=== PATIENT | female | born 1950 | race Caucasian/White ===

== ENCOUNTER 2016-12-12 22:03 | Emergency (ER) | payer OTHER, MEDICAID ==
[~2016-12-12] VITALS: Ht 154.9 cm; Wt 70.8 kg
[~2016-12-12 22:03] MED LIST: ALEN70TA5 PO; AMLO10TA2 PO; ATOR40TA59 PO; BUPR300T4 PO; CHOL20002 PO; CLON1TAB3 PO; DOCU100C PO; HYDR-2666 PO; HYDR12.53 PO; IBUP-1007 PO; LOSA100T6 PO; LURA120T PO; MELA1TAB11 PO; POTA20TA12 PO; RIZA10TA PO
[2016-12-12] MEDS ORDERED: HYDROCODONE/APAP 5/325MG TABLET. PO ONE (23:00)
--- NOTE | 2016-12-12 23:11 | PHYS DOC ---
Past Medical History Past Medical History: Bipolar, High Cholesterol, Hypertension, Schizophrenia Past Surgical History: Hysterectomy, Tonsillectomy Additional Past Surgical Histo: bladder tuck surgery, breast reduction, back sx , Alcohol Use: None Drug Use: None Adult General Chief Complaint Chief Complaint: MECHANICAL FALL HPI HPI Patient is a 66 year old female who presents status post fall. Patient reports she was in bed when she rolled over to reach for her walker, she rolled ran out of bed. She says she hit her head on the nightstand on the way down of loss consciousness. She presents now with complaint of pain in her lower back (of note recently underwent kyphoplasty). She also reports pain in her right hip. She did not take anything for pain prior to coming to ED. No other acute complaints. Review of Systems Review of Systems Constitutional: Denies fever or chills Eyes: Denies change in visual acuity or eye pain HENT: Denies nasal congestion or sore throat Respiratory: Denies cough or shortness of breath Cardiovascular: Denies chest pain GI: Denies abdominal pain, nausea, vomiting, bloody stools or diarrhea : Denies dysuria or hematuria Musculoskeletal: Low back pain, R hip pain Integument: Denies rash or skin lesions Neurologic: Denies headache, focal weakness or sensory changes Current Medications Current Medications Current Medications Medications (Trade) Dose Ordered Sig/Saji Start Time Stop Time Status Last Admin Dose Admin Acetaminophen/ Hydrocodone Bitart (Lortab 5/325) 1 tab 1X ONCE 12/12/16 23:00 12/12/16 23:01 DC 12/12/16 22:48 1 TAB Ketorolac Tromethamine (Toradol) 30 mg 1X ONCE 12/13/16 01:00 12/13/16 01:01 12/13/16 00:46 30 MG Allergies Allergies Allergies Coded Allergies Type Severity Reaction Last Updated Verified No Known Drug Allergies 09/19/15 No Physical Exam Physical Exam Constitutional: Well developed, well nourished, non-toxic appearance HENT: Normocephalic, atraumatic, bilateral external ears normal Eyes: PERRL, EOMI, conjunctiva normal, no discharge Neck: Normal range of motion, no stridor. No midline TTP, no stepoff Cardiovascular: Heart rate normal, regular rhythm, no murmur Lungs & Thorax: Bilateral breath sounds clear to auscultation Abdomen: Bowel sounds normal, soft, non-distended, no TTP Skin: Warm, dry, no erythema, no rash Back: Midline tenderness to palpation over lumbar spine; no stepoff noted; midline scar noted Extremities: No obvious deformity, no edema. Minimal lateral TTP over R hip, full motor function and sensation to light touch intact; 2+ DP pulse Neurologic: Alert and oriented X 3, GCS 15, CN II-XII grossly intact, strength intact and symmetrical throughout, sensation to light touch intact throughout, no dystaxia noted Current Patient Data Vital Signs Vital Signs Date Time Temp Pulse Resp B/P Pulse Ox O2 Delivery O2 Flow Rate FiO2 12/12/16 22:48 16 Room Air 12/12/16 22:25 98.4 71 125/67 92 98.4 EKG EKG [] Radiology/Procedures Radiology/Procedures CT head: IMPRESSION No acute intracranial abnormality is seen. CT C-spine: IMPRESSION No fracture or subluxation of the cervical vertebrae is seen. CT L-spine: IMPRESSION No acute fracture or subluxation lumbar vertebrae is seen. X-ray R hip and pelvis (my read): No acute abnormality Course & Med Decision Making Course & Med Decision Making Pertinent Labs and Imaging studies reviewed. (See chart for details) Patient is 66-year-old female who presents with low back pain after mechanical fall out of bed. Will obtain CT head and C-spine simply given age and reported loss of consciousness. Will check CT L-spine and x-ray of right hip as well. Oral pain meds ordered for patient. Imaging results as above. Discussed results with patient. Will discharge home with prescription for naproxen, instructions for follow-up, return precautions. Dragon Disclaimer Dragon Disclaimer This electronic medical record was generated, in whole or in part, using a voice recognition dictation system. Departure Departure Impression: Primary Impression: Fall Additional Impression: Back pain Disposition: 01 HOME, SELF-CARE Condition: STABLE Referrals: FEDERICA SAENZ MD (PCP) Patient Instructions: Back Pain, Adult, Fall Prevention and Home Safety Additional Instructions: Thank you for allowing us to provide care today in the Emergency Department. Take the provided medication as directed. Schedule a follow up appointment with your primary care doctor. Return promptly to the Emergency Department if you develop any new or concerning symptoms. Scripts Naproxen 375 Mg [id number] Mg PO BID PRN PAIN #20 Prov:JOSE NICKERSON MD 12/13/16 Problem Qualifiers JOSE NICKERSON MD Dec 12, 2016 23:11
--- NOTE | 2016-12-12 23:29 | RAD ---
PROCEDURE CT scan of the head without contrast 12/12/2016 HISTORY Patient fell out of bed striking head. TECHNIQUE Unenhanced contiguous, 5 millimeter axial sections were obtained through the head. One or more of the following individualized dose reduction techniques were utilized for this study: 1. Automated exposure control. 2. Adjustment of the mA and/or kV according to patient size. 3. Use of iterative reconstruction technique. FINDINGS There is generalized parenchymal atrophy. Areas of decreased attenuation are seen within the white matter both cerebral hemispheres consistent with areas of small vessel ischemic disease. No acute parenchymal abnormality is seen. No extra-axial fluid collection is noted. No skull fracture is seen. IMPRESSION No acute intracranial abnormality is seen. PROCEDURE CT scan of the cervical spine without contrast 12/12/2016 HISTORY Neck pain post fall. TECHNIQUE Unenhanced contiguous, 0.625 millimeter axial sections were obtained through the cervical spine. One or more of the following individualized dose reduction techniques were utilized for this study: 1. Automated exposure control. 2. Adjustment of the mA and/or kV according to patient size. 3. Use of iterative reconstruction technique. FINDINGS Sagittal and coronal reconstructed images demonstrate minimal lateral curvature of the cervical spine convex to the right. There is straightening of the normal cervical lordosis. Degenerative changes consisting of disc space narrowing, vertebral endplate sclerosis and mild anterior and posterior vertebral body osteophyte formation are seen involving the C5-6 and C6-7 disc spaces. No fracture or subluxation cervical vertebrae is seen. IMPRESSION No fracture or subluxation of the cervical vertebrae is seen. Electronically signed by: Kaushik Wright MD (Dec 12, 2016 23:28:15)
--- NOTE | 2016-12-12 23:31 | RAD ---
PROCEDURE CT scan of the lumbar spine without contrast 12/12/2016 HISTORY Low back pain after falling out of bed. TECHNIQUE Unenhanced contiguous, 0.625 millimeter axial sections were obtained through the lumbar spine. 3 millimeter reconstructed sagittal, axial coronal images were obtained. One or more of the following individualized dose reduction techniques were utilized for this study: 1. Automated exposure control. 2. Adjustment of the mA and/or kV according to patient size. 3. Use of iterative reconstruction technique. FINDINGS Sagittal and coronal reconstructed images demonstrate mild S-shaped curvature of the thoracolumbar spine. The patient is status post kyphoplasty type procedure involving the L2 vertebral body. No acute fracture of the lumbar vertebrae is seen. Degenerative changes are seen involving the facet joints of the mid and lower lumbar spine. IMPRESSION No acute fracture or subluxation lumbar vertebrae is seen. Electronically signed by: Kaushik Wright MD (Dec 12, 2016 23:30:46)
[2016-12-13] MEDS ORDERED: NAPR375T3 PO (00:35)
[2016-12-13 00:41] VITALS: BP 133/75
[2016-12-13] MEDS ORDERED: KETOROLAC TROMETHAMINE 30 MG/ML SYRINGE. IM ONE (01:00)
--- NOTE | 2016-12-13 08:13 | RAD ---
Examination: 2 views of the right hip History: History of fall, pain Comparison: None available Findings: The femoral head is within the acetabula. Mild degenerative changes identified in the bilateral hip joint. There is no acute fracture or dislocation identified. Impression: No acute osseous findings.
== END 2016-12-13 01:38 | disposition home or self-care (01) ==
LOC: ER 22:03
DX: M54.5 Low back pain (principal); M25.551 Pain in right hip; F31.9 Bipolar disorder, unspecified; E78.00 Pure hypercholesterolemia, unspecified; I10 Essential (primary) hypertension; F20.9 Schizophrenia, unspecified; Z90.710 Acquired absence of both cervix and uterus; W19.XXXA Unspecified fall, initial encounter; Y93.89 Activity, other specified; Y92.89 Other specified places as the place of occurrence of the external cause; Y99.8 Other external cause status
CPT/HCPCS: 70450; 72125; 72131; 73502; 96372; 99284; J1885

== ENCOUNTER 2017-01-15 14:47 | Inpatient (IN) | payer OTHER, MEDICAID ==
[~2017-01-15] VITALS: Ht 154.9 cm; Wt 63.5 kg
[2017-01-15] VITALS (7 sets, daily range): BP systolic 120–140; BP diastolic 71–75
[~2017-01-15 14:47] MED LIST changes: +NAPR375T3 PO
--- NOTE | 2017-01-15 15:22 | EKG ---
[facility] [address] [place] [address] Test Date: 2017-01-15 Test Time: 15:21:13 Pat Name: TAMMI BERRIOS Department: Room: Gender: [place] [employer]: : 1950 Requested By: JAMI MANDEL Order Number: [id number] Reading MD: Measurements Intervals [place] Rate: 73 P: 68 DE: 192 QRS: 2 QRSD: 92 T: 16 QT: 438 QTc: 487 Interpretive Statements SINUS RHYTHM CONSIDER RIGHT VENTRICULAR HYPERTROPHY PROLONGED QT POSSIBLY ABNORMAL ECG RI6.01 No previous ECG available for comparison
--- NOTE | 2017-01-15 15:26 | RAD ---
CT of the head without contrast, 01/15/2017: History: Right facial droop Comparison is made to a study from 12/12/2016. The ventricles are within normal limits in size. There is no shift of the midline structures. There is no evidence of acute intracranial hemorrhage or mass effect. There are mild deep white matter lucencies, more so on the left, compatible with chronic ischemic change. IMPRESSION: No acute intracranial abnormality is detected with no significant change since 12/12/2016. Note: The findings were called to personnel in the [facility] ER at 3:22 PM on 01/15/2017.
--- NOTE | 2017-01-15 16:03 | RAD ---
Portable chest, 01/15/2017: History: Headache and weakness, CVA The patient is rotated to the right. The heart appears to be within normal limits in size. The pulmonary vascularity is normal. The depth of inspiration is poor with mild streaky right basilar and left parahilar opacities compatible with atelectasis. The lungs are otherwise clear. There is no evidence of pleural fluid. IMPRESSION: Suboptimal inspiration with mild left perihilar and right basilar discoid atelectasis.
--- NOTE | 2017-01-15 16:08 | PDOC2 ---
NEUROLOGY CONSULT Date of Admission Date of Admission DATE: 01/15/17 TIME: 16:00 Reason for Consult Reason for Consult: Weakness Referring Physician Referring Physician: Dr. Valencia PCP: Niharika Cazares Source Source: Caregiver, Chart review, Patient History of Present Illness History of Present Illness The patient is a 66-year-old right-handed female noted to have a left facial droop today. It was hard to pin her down but she thinks it started this morning. Her daughter noticed it when she came to visit at about 1 PM. The patient has generalized weakness. She could not use her call button. She has been debilitated ever since back injuries several years ago and recently was here for a lumbar compression fracture. She has no history of stroke, seizure, or head injury. Past Medical History Cardiovascular: HTN, Hyperlipidemia CENTRAL NERVOUS SYSTEM: Migraine Psych: Bipolar, Schizophrenia Musculoskeletal: low back pain (lumbar compressio fracture) ENT: Other (Fuchs dystrophy) Endocrine: Osteoporosis Past Surgical History Past Surgical History: Tonsillectomy, Hysterectomy, Other (bladder tuck, breast reduction) Family History Family History: CVA Social History Social History Single, lives alone, disabled, no tobacco or alcohol use Current Medications Current Medications Current Medications Aspirin (Ecotrin) 81 mg DAILYWBKFT PO ; Start 01/16/17 at 08:00 Prednisone (Prednisone) 40 mg DAILY PO ; Start 01/15/17 at 16:15 Active Scripts Active Naproxen 375 Mg Tablet 375 Mg PO BID PRN Reported Stool Softener (Docusate Sodium) 100 Mg Capsule 100 Mg PO DAILY Melatonin 5 Mg Tablet (Melatonin/Pyridoxine Hcl (B6)) 1 Each Tablet 1 Each PO HS Latuda (Lurasidone Hcl) 120 Mg Tablet 120 Mg PO DAILYWSUP Bupropion Xl (Bupropion Hcl) 300 Mg Tab.er.24h 300 Mg PO DAILY Alendronate Sodium 70 Mg Tablet 70 Mg PO WEEKLY Ibuprofen 600 Mg Tablet 600 Mg PO Q6H PRN Hydrocodone-Apap 5-325 (Hydrocodone Bit/Acetaminophen) 1 Each Tablet 1 Tab PO PRN Q6HRS PRN Vitamin D-3 (Cholecalciferol (Vitamin D3)) 2,000 Unit Tablet 5,000 Unit PO WEEKLY Losartan Potassium 100 Mg Tablet 100 Mg PO DAILY Amlodipine Besylate 10 Mg Tablet 10 Mg PO DAILY Atorvastatin Calcium 40 Mg Tablet 40 Mg PO DAILY Hydrochlorothiazide Capsule (Hydrochlorothiazide) 12.5 Mg Capsule 25 Mg PO DAILY Potassium Chloride 20 Meq Tab.er.prt 20 Meq PO DAILY Maxalt (Rizatriptan Benzoate) 10 Mg Tablet 10 Mg PO PRN PRN Clonazepam 1 Mg Tablet 1 Mg PO Allergies Allergies: Coded Allergies: No Known Drug Allergies (Unverified , 09/19/15) ROS Review of System Patient denies fevers, chills, weight loss, dyspnea, angina, abdominal pain, change in bowels, or dysuria. 14 point review of systems is negative. Physical Exam Physical Examination PHYSICAL EXAMINATION: Vital signs: see above. General appearance is normal and in no acute distress. HEENT: Normocephalic and nontraumatic. Eyes, nose, ears, and throat are unremarkable. Tympanic membranes clear Neck is supple. No lymphadenopathy. No bruits are heard over the carotid artery. No crepitus. NEUROLOGICAL EXAMINATION: Mental Status Examination: Alert. Oriented to time, place, and person. Answers questions and follows commends. Pupils are equal round and reactive to light and accommodation. Funduscopic exam: No papilledema. Extraocular movements are intact. Visual field exam shows no defect on the direct confrontation. There is a left lower motor neuron facial weakness. Uvula in the midline and the soft palate elevated symmetrically. No deviation of the tongue to any direction. Gross hearing is normal. Shoulder shrug normal. Muscle tone is normal. Muscle strength is 3-4/5. Deep tendon reflexes are 2+ all around. Plantar reflex is with flexion response bilaterally. [id number] test performance is accurate. Alternative movements are accurate. Gait not tested; she usually gets around with a walker. Sensory exam shows no deficits. No cerebellar signs are elicited. She has masked facies, bradykinesia, but no cogwheel rigidity or tremor Vitals VITALS Vital Signs Date Time Temp Pulse Resp B/P Pulse Ox O2 Delivery O2 Flow Rate FiO2 01/15/17 15:11 98.1 71 18 118/64 94 Room Air 98.1 Labs Labs Laboratory Tests Test 01/15/17 15:15 Glucose (Fingerstick) 94mg/dL (70-99) Laboratory Tests Test 01/15/17 15:15 Glucose (Fingerstick) 94mg/dL (70-99) Images Images CT head negative Assessment/Plan Assessment/Plan Impression: Left Betancourt's palsy Diffuse weakness, nonfocal, with overall picture of an extrapyramidal syndrome from her antipsychotics and antidepressants. I find no evidence of radiculopathy , myelopathy, neuropathy, or myopathy. Chronic back pain and debility including requirement to use a walker to ambulate. Recommendations: MRI of the brain Additional stroke workup if the MRI shows that there was a stroke Low dose prednisone for Betancourt's palsy Hold on antiviral agents for Betancourt's palsy Rehabilitation modalities Hold psychiatric medications Daily aspirin I discussed my findings with the patient, her daughter, as well as Dr. Valencia. Thank you for letting me help with the patient's care. CORBY PETERSON MD Jan 15, 2017 16:08
[2017-01-15] MEDS ORDERED: ONDANSETRON PF 4 MG/2 ML VIAL. IV PRN (16:15)
--- NOTE | 2017-01-15 16:16 | PHYS DOC ---
Past Medical History Past Medical History: Bipolar, High Cholesterol, Hypertension, Schizophrenia Past Surgical History: Hysterectomy, Tonsillectomy Additional Past Surgical Histo: bladder tuck surgery, breast reduction, back sx , Alcohol Use: None Drug Use: None Adult General Chief Complaint Chief Complaint: NEURO SYMPTOMS/DEFICITS HPI HPI 66-year-old female presenting to the emergency department with left-sided facial droop and slurred speech. (Nursing note states this started 1 hour ago. I clarified with the patient and the patient's box car bracer in front of the nurse. Everybody agrees that the patient's symptoms started between 6 AM and 7 AM this morning. She denies focal weakness but does complain of generalized weakness in both upper and lower extremities. She denies any vision changes. Location brain. Duration constant. No alleviating factors present. Review of systems is negative for chest pain shortness of breath nausea vomiting abdominal pain. She denies fevers or chills. All other review of systems is negative unless otherwise noted in history of present illness. Review of Systems Review of Systems see above Current Medications Current Medications Allergies Allergies Allergies Coded Allergies Type Severity Reaction Last Updated Verified No Known Drug Allergies 09/19/15 No Physical Exam Physical Exam Constitutional: Well developed, well nourished, no acute distress, non-toxic appearance. HENT: Normocephalic, atraumatic, bilateral external ears normal, oropharynx moist, no oral exudates, nose normal. Eyes: PERRLA, EOMI, conjunctiva normal, no discharge. [] Neck: Normal range of motion, no tenderness, supple, no stridor. Cardiovascular:Heart rate regular rhythm, no murmur [] Lungs & Thorax: Bilateral breath sounds clear to auscultation Abdomen: Bowel sounds normal, soft, no tenderness, no masses, no pulsatile masses. [] Skin: Warm, dry, no erythema, no rash. Back: No tenderness, no CVA tenderness. [] Extremities: No tenderness, no cyanosis, no clubbing, ROM intact, no edema. [] Neurologic: Mental status: Awake oriented and alert x3 Cranial nerves: Extraocular movements intact, patient has left-sided facial droop. She is unable to raise her left eyebrow. uvula elevation symmetric, shoulder shrug intact, tongue protrusion normal DTRs: 2+ Sensation: equal and normal in all extremities Strength: 4 out of 5 strength in all extremities. Asymmetric. Psychologic: Affect normal, judgement normal, mood normal. Current Patient Data Vital Signs Vital Signs Date Time Temp Pulse Resp B/P Pulse Ox O2 Delivery O2 Flow Rate FiO2 01/15/17 15:29 72 125/65 01/15/17 15:11 98.1 18 94 Room Air 98.1 Lab Values Laboratory Tests Test 01/15/17 15:15 Glucose (Fingerstick) 94mg/dL (70-99) EKG EKG [] Radiology/Procedures Radiology/Procedures [] Course & Med Decision Making Course & Med Decision Making Pertinent Labs and Imaging studies reviewed. (See chart for details) [] 66-year-old female presenting to the emergency department with left-sided facial droop that started between 6 AM and 7 AM this morning. (not one hour ago as explained by the pt). Vital signs afebrile. Otherwise unremarkable. Our neurologist Dr. Gunter was able to see the patient in the emergency department here around 3:45pm. The decision at that time was that the patient would not benefit from TPA. Aspirin ordered. head CT unremarkable. Blood work obtained. low potassium. pt was given po K in the ED. The patient was then admitted to our hospital for further evaluation workup and care. Neurology consultation placed. Dragon Disclaimer Dragon Disclaimer This electronic medical record was generated, in whole or in part, using a voice recognition dictation system. Departure Departure Impression: Primary Impression: Facial droop Disposition: ADMITTED INPATIENT Admitting Physician: Janel Valencia Condition: STABLE Referrals: FEDERICA SAENZ MD (PCP) JAMI MANDEL MD Jan 15, 2017 16:16
--- NOTE | 2017-01-15 16:21 | PDOC1 ---
History and Physical Date of Admission Date of Admission DATE: 01/15/17 TIME: 16:15 Identification/Chief Complaint Chief Complaint left facial droop Source Source: Caregiver, Chart review, Patient History of Present Illness History of Present Illness 66 y.o female, known to me form past admit in 10/2016, where she was here for 5 days for the ff: 1. L2 traumatic compressive fx, closed s/p L kyphoplasty 2. recent lower back fx wo details 3. recent pns 4. HTN 5. HLD 6. BIPolar/schizophrenia 7. hypokalemia She comes here bec she woke up this AM with left sided facial droop, some difficulty swallowing, Lives alone at home, ambulates with a walker. Her Left NLF is shallow, she has weak tongue protrusion, I dont appreciate much wrinkling of the forehead though, Narciso neuro, working dx is Betancourt's for now but need to r.o stroke, Will get MRI, ASA, starrt pred, check ESR. VS at ER is ok Pt hx is limited from the pt herself Past Medical History Cardiovascular: HTN, Hyperlipidemia CENTRAL NERVOUS SYSTEM: Migraine Psych: Bipolar, Schizophrenia Musculoskeletal: low back pain (lumbar compressio fracture) ENT: Other (Fuchs dystrophy) Endocrine: Osteoporosis Past Surgical History Past Surgical History: Tonsillectomy, Hysterectomy, Other (bladder tuck, breast reduction) Family History Family History: No Significant Social History Smoke: No ALCOHOL: none Drugs: None Current Problem List Problem List Problems Medical Problems: (1) Weakness Status: Acute Problems: Current Medications Current Medications Current Medications Aspirin (Ecotrin) 81 mg DAILYWBKFT PO ; Start 01/16/17 at 08:00 Prednisone (Prednisone) 40 mg DAILY PO ; Start 01/15/17 at 16:15 Ondansetron HCl (Zofran) 4 mg PRN Q8HRS PRN IV NAUSEA/VOMITING; Start 01/15/17 at 16:15; Stop 01/15/17 at 16:15; Status DC Morphine Sulfate 2 mg PRN Q2HR PRN IV PAIN; Start 01/15/17 at 16:15; Stop at 16:14 Ondansetron HCl (Zofran) 4 mg PRN Q6HRS PRN IV NAUSEA/VOMITING; Start 01/15/17 at 16:12 Acetaminophen (Tylenol) 650 mg PRN Q4HRS PRN PO headache; Start 01/15/17 at 16: 15 Amlodipine Besylate (Norvasc) 10 mg DAILY PO ; Start 01/16/17 at 09:00; Status UNV Atorvastatin Calcium (Lipitor) 40 mg DAILY PO ; Start 01/16/17 at 09:00; Status UNV Clonazepam (Klonopin) 1 mg QHS PO ; Start 01/15/17 at 21:00; Stop 01/15/17 at 21: 00; Status DC Docusate Sodium (Colace) 100 mg DAILY PO ; Start 01/16/17 at 09:00; Status UNV Hydrochlorothiazide (Microzide) 25 mg DAILY PO ; Start 01/16/17 at 09:00; Status UNV Acetaminophen/ Hydrocodone Bitart (Lortab 5/325) 1 tab PRN Q6HRS PRN PO PAIN; Start 01/15/17 at 16:15; Status UNV Potassium Chloride (Klor-Con) 20 meq DAILY PO ; Start 01/16/17 at 09:00; Status UNV Non-Formulary Medication 70 mg WEEKLY PO ; Start 01/22/17 at 09:00; Status UNV Non-Formulary Medication 300 mg DAILY PO ; Start 01/16/17 at 09:00; Status UNV Non-Formulary Medication 5,000 unit WEEKLY PO ; Start 01/22/17 at 09:00; Status UNV Non-Formulary Medication 600 mg Q6H PRN PO PAIN; Start 01/15/17 at 16:15; Status UNV Non-Formulary Medication 100 mg DAILY PO ; Start 01/16/17 at 09:00; Status UNV Non-Formulary Medication 120 mg DAILYWSUP PO ; Start 01/15/17 at 17:00; Status UNV Non-Formulary Medication 1 each HS PO ; Start 01/15/17 at 21:00; Status UNV Non-Formulary Medication 375 mg BID PRN PO PAIN; Start 01/15/17 at 16:15; Status UNV Non-Formulary Medication 10 mg PRN PRN PO MIGRAINE HEADACHE; Start 01/15/17 at 16 :15; Status UNV Active Scripts Active Naproxen 375 Mg Tablet 375 Mg PO BID PRN Reported Stool Softener (Docusate Sodium) 100 Mg Capsule 100 Mg PO DAILY Melatonin 5 Mg Tablet (Melatonin/Pyridoxine Hcl (B6)) 1 Each Tablet 1 Each PO HS Latuda (Lurasidone Hcl) 120 Mg Tablet 120 Mg PO DAILYWSUP Bupropion Xl (Bupropion Hcl) 300 Mg Tab.er.24h 300 Mg PO DAILY Alendronate Sodium 70 Mg Tablet 70 Mg PO WEEKLY Ibuprofen 600 Mg Tablet 600 Mg PO Q6H PRN Hydrocodone-Apap 5-325 (Hydrocodone Bit/Acetaminophen) 1 Each Tablet 1 Tab PO PRN Q6HRS PRN Vitamin D-3 (Cholecalciferol (Vitamin D3)) 2,000 Unit Tablet 5,000 Unit PO WEEKLY Losartan Potassium 100 Mg Tablet 100 Mg PO DAILY Amlodipine Besylate 10 Mg Tablet 10 Mg PO DAILY Atorvastatin Calcium 40 Mg Tablet 40 Mg PO DAILY Hydrochlorothiazide Capsule (Hydrochlorothiazide) 12.5 Mg Capsule 25 Mg PO DAILY Potassium Chloride 20 Meq Tab.er.prt 20 Meq PO DAILY Maxalt (Rizatriptan Benzoate) 10 Mg Tablet 10 Mg PO PRN PRN Clonazepam 1 Mg Tablet 1 Mg PO Allergies Allergies: Coded Allergies: No Known Drug Allergies (Unverified , 09/19/15) ROS Review of System limited, weak, minimally verbal, but so far denies all 14 pt Physical Exam General: Oriented X3, No acute distress HEENT: Atraumatic, PERRLA, EOMI Lungs: Clear to auscultation, Normal air movement Heart: S1S2, RRR, no thrills, no rubs, no gallops Cardiovascular: S1, S2 Breasts: Normal Abdomen: Normal bowel sounds, Soft, No tenderness, No hepatosplenomegaly, No masses PELVIC: Nml ext genitalia Extremities: No clubbing, No cyanosis, No edema, Normal pulses, No tenderness/ swelling Skin: No rashes, No breakdown, No significant lesion Neuro: Other (shallow left NLF, weak tongue protrusion, MMT 4/5 on all 4s,. no sensory deficit,. DTR s 2) Psych/Mental Status: Mental status NL, Mood NL Vitals Vitals Vital Signs Date Time Temp Pulse Resp B/P Pulse Ox O2 Delivery O2 Flow Rate FiO2 01/15/17 15:11 98.1 71 18 118/64 94 Room Air 98.1 Labs Labs Laboratory Tests Test 01/15/17 15:15 Glucose (Fingerstick) 94mg/dL (70-99) Laboratory Tests Test 01/15/17 15:15 Glucose (Fingerstick) 94mg/dL (70-99) VTE Prophylaxis Ordered VTE Prophylaxis Devices: Yes VTE Pharmacological Prophylaxi: Yes Assessment/Plan Assessment/Plan 1. Left facial droop difftls include Harris' palsy need to r.o acute CVA 2. HTN, controlled 3,. HX L2 kyphoplasty 4. Hyperlipidmeia 5. Recent . L2 traumatic compressive fx, closed s/p L@ kyphoplasty 6. BIPolar/schizophrenia PLAN Got ASA MRI Start pred PT/OT DATA SPECIALIST eval Liquid diet for now If mRI positive then will proceed with full stroke work up \Neuro consult - dw TONI Dahl MD Jan 15, 2017 16:21
[2017-01-15] MEDS ORDERED: SUMATRIPTAN SUCCINATE 100 MG TABLET. PO PRN (16:45)
[2017-01-15] MEDS ORDERED: IBUPROFEN 600 MG TABLET. PO PRN (16:45)
--- NOTE | 2017-01-15 16:52 | RAD ---
PROCEDURE MRI brain without contrast HISTORY Right facial droop, generalized weakness of extremities, body weakness TECHNIQUE Multiplanar, multi sequential non contrast MR imaging was performed of the brain. COMPARISON None FINDINGS There is mild motion. There is no evidence of a recent infarct or cytotoxic edema. Ventricular size is within limits. There is mild generalized supratentorial involutional change. There is no intra-axial mass effect, midline shift, extra-axial fluid collection. There is minimal T2 and FLAIR hyperintense signal abnormality of the supratentorial periventricular white matter, also several scattered foci in the deep white matter. Largest focus of the left hernandez radiata measures up to 0.8 centimeters. There is no significant hemosiderin deposition of the brain parenchyma. Cerebellar tonsils are normal in location. There is preservation of marrow signal of the clivus. There is mild mucosal thickening of the posterior sphenoid sinus. Mastoid air cells are aerated. IMPRESSION 1. There is no evidence of recent infarct or intracranial mass effect. There are scattered foci of T2 and FLAIR hyperintense signal abnormality of the supratentorial white matter. Nonspecific findings may be due to chronic microvascular ischemic disease in a patient this age especially if risk factors such as hypertension or diabetes. No contrast was given for this exam to evaluate for abnormal intracranial enhancement. Pattern is not particularly suggestive of an inflammatory demyelinating disease. Electronically signed by: Jesu Godwin MD (Jan 15, 2017 16:50:03)
[2017-01-15 17:14] LABS: BILIRUBIN,URINE NEGATIVE (NEG); GLUCOSE,URINE NEGATIVE (NEG); NITRITE,URINE NEGATIVE (NEG); PROTEIN,URINE NEGATIVE (NEG-TRACE); UROBILINOGEN,URINE 0.2 mg/dL (0.2 mg/dL)
[2017-01-15 17:20] LABS: BARBITURATES NEG (NEG); BENZODIAZEPINES NEG (NEG); CANNABINOIDS NEG (NEG); COCAINE NEG (NEG); METHADONE NEG (NEG); OPIATES NEG (NEG); PHENCYCLIDINE NEG (NEG)
[2017-01-15 17:22] LABS: BACTERIA,URINE 0 /HPF (0-FEW); SQUAMOUS EPITHELIAL CELL,UR FEW /LPF
[2017-01-15 17:25] LABS: ETHANOL, URINE NEG (NEG)
[2017-01-15] MEDS: LOSARTAN POTASSIUM 50 MG TABLET. PO SCH (17:30)
[2017-01-15] MEDS: HYDROCHLOROTHIAZIDE 12.5 MG CAPSULE. PO SCH (17:30)
[2017-01-15] MEDS: buPROPion XL 150 MG TAB.ER.24H. PO SCH (17:30)
[2017-01-15] MEDS: AMLODIPINE BESYLATE 10 MG TABLET. PO SCH (17:30)
[2017-01-15 17:39] LABS: BASO # 0.1 x10^3/uL (0.0-0.2); BASO % 1 % (0-3); EOS % 1 % (0-3); HEMATOCRIT 38.7 % (36.0-47.0); LYMPH % 29 % (24-48); MEAN CORPUSCULAR HEMOGLOBIN 29 pg (25-35); MEAN CORPUSCULAR HGB CONC 34 g/dL (31-37); MEAN CORPUSCULAR VOLUME 85 fL (79-100); MONO % 6 % (0-9); NEUT % 63 % (31-73); PLATELET COUNT 240 x10^3/uL (140-400); RED BLOOD COUNT 4.58 x10^6/uL (3.50-5.40); RED CELL DISTRIBUTION WIDTH 14.8 % (11.5-14.5); WHITE BLOOD COUNT 6.9 x10^3/uL (4.0-11.0)
[2017-01-15 17:47] LABS: ALBUMIN 3.8 g/dL (3.4-5.0); CALCIUM 9.8 mg/dL (8.5-10.1); CREATININE 0.8 mg/dL (0.6-1.0); DIRECT BILIRUBIN 0.1 mg/dL (0.0-0.2); GFR 71.8; TOTAL BILIRUBIN 0.3 mg/dL (0.2-1.0)
[2017-01-15 17:50] LABS: PROTHROMBIN TIME PATIENT 12.1 SEC (11.7-14.0)
[2017-01-15 17:53] LABS: POTASSIUM 2.9 mmol/L (3.5-5.1)
[2017-01-15] MEDS: PREDNISONE 20 MG TABLET PO SCH (18:24)
[2017-01-15] MEDS ORDERED: POTASSIUM CHLORIDE 20 MEQ TABLET.ER. PO ONE (18:30)
[2017-01-15] MEDS: MORPHINE SULFATE 2 MG/ML DISP.SYRIN. IV PRN (18:55)
[2017-01-15] MEDS: ATORVASTATIN CALCIUM 40 MG TABLET. PO SCH (20:23)
[2017-01-15] MEDS ORDERED: PYRIDOXINE HCL PO SCH (21:00)
[2017-01-15] MEDS ORDERED: MELATONIN PO SCH (21:00)
[2017-01-15] MEDS ORDERED: CLONAZEPAM 1 MG TABLET. PO SCH (21:00)
[2017-01-15] MEDS: LURASIDONE 40 MG TABLET. PO SCH (21:12)
[2017-01-16] MEDS: CLONAZEPAM 1 MG TABLET. PO PRN ×2 (00:14→22:03)
[2017-01-16 03:12] VITALS: BP_SYST 130; BP_SYST 133; BP_DIAS 71; BP_DIAS 85
[2017-01-16] MEDS: MORPHINE SULFATE 2 MG/ML DISP.SYRIN. IV PRN ×2 (03:32→06:03)
[2017-01-16 04:41] LABS: BASO % 0 % (0-3); EOS % 0 % (0-3); HEMATOCRIT 37.1 % (36.0-47.0); HEMOGLOBIN 12.5 g/dL (12.0-15.5); LYMPH # 0.6 x10^3/uL (1.0-4.8); LYMPH % 12 % (24-48); MEAN CORPUSCULAR HEMOGLOBIN 28 pg (25-35); MEAN CORPUSCULAR HGB CONC 34 g/dL (31-37); MEAN CORPUSCULAR VOLUME 84 fL (79-100); MONO % 1 % (0-9); NEUT % 87 % (31-73); PLATELET COUNT 245 x10^3/uL (140-400); RED BLOOD COUNT 4.42 x10^6/uL (3.50-5.40); RED CELL DISTRIBUTION WIDTH 14.9 % (11.5-14.5)
[2017-01-16 04:57] LABS: CALCIUM 9.2 mg/dL (8.5-10.1); CREATININE 0.6 mg/dL (0.6-1.0); POTASSIUM 3.6 mmol/L (3.5-5.1)
[2017-01-16 05:02] LABS: CHOLESTEROL/HDL RATIO 2.1
[2017-01-16 06:41] LABS: PLT ESTIMATE ADEQUATE (ADEQUATE)
[2017-01-16 07:00] VITALS: BP 143/86
[2017-01-16] MEDS ORDERED: LURASIDONE 40 MG TABLET. PO SCH (08:00)
[2017-01-16] MEDS: PREDNISONE 20 MG TABLET PO SCH (08:45)
[2017-01-16] MEDS: HYDROCODONE/APAP 5/325MG TABLET. PO PRN ×2 (08:45→15:07)
[2017-01-16] MEDS: ONDANSETRON PF 4 MG/2 ML VIAL. IV PRN ×2 (08:45→22:07)
[2017-01-16] MEDS: POTASSIUM CHLORIDE 20 MEQ TABLET.ER. PO SCH (08:45)
[2017-01-16] MEDS: ASPIRIN ENTERIC COATED 81 MG TABLET.DR. PO SCH (08:46)
[2017-01-16] MEDS: HYDROCHLOROTHIAZIDE 12.5 MG CAPSULE. PO SCH (08:46)
[2017-01-16] MEDS: buPROPion XL 150 MG TAB.ER.24H. PO SCH (08:46)
[2017-01-16] MEDS: LOSARTAN POTASSIUM 50 MG TABLET. PO SCH (08:47)
[2017-01-16] MEDS: AMLODIPINE BESYLATE 10 MG TABLET. PO SCH (08:47)
[2017-01-16] MEDS: DOCUSATE SODIUM 100 MG CAPSULE. PO SCH (08:50)
[2017-01-16 10:48] VITALS: BP 148/86
--- NOTE | 2017-01-16 11:16 | PDOC ---
PROGRESS NOTES Chief Complaint Chief Complaint 1. Left facial droop difftls include [place]' palsy 2. HTN, controlled 3,. Hx L2 kyphoplasty 4. Hyperlipidmeia 5. Recent . L2 traumatic compressive fx, closed s/p L@ kyphoplasty 6. BIPolar/schizophrenia 7. gastroenteritis 8. 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 on losartan, amlodipine IVF 1L dc tmr if ok with neuro History of Present Illness History of Present Illness still left facial droop, mild eating is ok mild Left abd pain with nausea, for 2 days, still lot's of nausea diarrhea with loose BM 2 days, better today Vitals Vitals Vital Signs Date Time Temp Pulse Resp B/P Pulse Ox O2 Delivery O2 Flow Rate FiO2 01/16/17 10:48 98.6 94 18 148/86 93 Room Air 98.6 Physical Exam Physical Exam left side mild facial droop General: Oriented X3, No acute distress Heart: Regular rate, Normal S1 Lungs: Clear Abdomen: Normal bowel sounds, Soft, No tenderness, No hepatosplenomegaly, No masses Extremities: No clubbing, No cyanosis, No edema, Normal pulses, No tenderness/ swelling Skin: No rashes, No breakdown, No significant lesion Labs LABS Laboratory Tests Test 01/15/17 15:15 01/15/17 17:05 01/15/17 17:20 01/16/17 04:12 Glucose (Fingerstick) 94mg/dL (70-99) Urine Collection Type Unknown Urine Color Yellow Urine Clarity Clear Urine pH 7.0 Urine Specific [place] <=1.005 Urine Protein Negativemg/dL (NEG-TRACE) Urine Glucose (UA) Negativemg/dL (NEG) Urine Ketones (Stick) Negativemg/dL (NEG) Urine Blood Negative (NEG) Urine Nitrite Negative (NEG) Urine Bilirubin Negative (NEG) Urine Urobilinogen Dipstick 0.2mg/dL (0.2 mg/dL) Urine Leukocyte Esterase Small (NEG) Urine RBC 1-2/HPF (0-2) Urine WBC 5-10/HPF (0-4) Urine Squamous Epithelial Cells Few/LPF Urine Bacteria 0/HPF (0-FEW) Urine Mucus Slight/LPF Urine Opiates Screen Neg (NEG) Urine Methadone Screen Neg (NEG) Urine Barbiturates Neg (NEG) Urine Phencyclidine Screen Neg (NEG) Urine Amphetamine/Methamphetamine Neg (NEG) Urine Benzodiazepines Screen Neg (NEG) Urine Cocaine Screen Neg (NEG) Urine Cannabinoids Screen Neg (NEG) Urine Ethyl Alcohol Neg (NEG) White Blood Count 6.9x10^3/uL (4.0-11.0) Red Blood Count 4.58x10^6/uL (3.50-5.40) Hemoglobin 13.0g/dL (12.0-15.5) Hematocrit 38.7% (36.0-47.0) Mean Corpuscular Volume 85fL (79-100) Mean Corpuscular Hemoglobin 29pg (25-35) Mean Corpuscular Hemoglobin Concent 34g/dL (31-37) Red Cell Distribution Width 14.8% (11.5-14.5) Platelet Count 240x10^3/uL (140-400) Neutrophils (%) (Auto) 63% (31-73) Lymphocytes (%) (Auto) 29% (24-48) Monocytes (%) (Auto) 6% (0-9) Eosinophils (%) (Auto) 1% (0-3) Basophils (%) (Auto) 1% (0-3) Neutrophils # (Auto) 4.3x10^3uL (1.8-7.7) Lymphocytes # (Auto) 2.0x10^3/uL (1.0-4.8) Monocytes # (Auto) 0.4x10^3/uL (0.0-1.1) Eosinophils # (Auto) 0.1x10^3/uL (0.0-0.7) Basophils # (Auto) 0.1x10^3/uL (0.0-0.2) Prothrombin Time 12.1SEC (11.7-14.0) Prothromb Time International Ratio 1.0 (0.8-1.1) Activated Partial Thromboplast Time 29SEC (24-38) Sodium Level 131mmol/L (136-145) 136mmol/L (136-145) Potassium Level 2.9mmol/L (3.5-5.1) 3.6mmol/L (3.5-5.1) Chloride Level 92mmol/L (98-107) 98mmol/L (98-107) Carbon Dioxide Level 32mmol/L (21-32) 31mmol/L (21-32) Anion Gap 7 (6-14) 7 (6-14) Blood Urea Nitrogen 9mg/dL (7-20) 7mg/dL (7-20) Creatinine 0.8mg/dL (0.6-1.0) 0.6mg/dL (0.6-1.0) Estimated GFR (Cockcroft-Gault) 71.8 100.0 Glucose Level 87mg/dL (70-99) 120mg/dL (70-99) Calcium Level 9.8mg/dL (8.5-10.1) 9.2mg/dL (8.5-10.1) Total Bilirubin 0.3mg/dL (0.2-1.0) Direct Bilirubin 0.1mg/dL (0.0-0.2) Aspartate Amino Transf (AST/SGOT) 17U/L (15-37) Alanine Aminotransferase (ALT/SGPT) 18U/L (14-59) Alkaline Phosphatase 71U/L (46-116) Troponin I Quantitative < 0.017ng/mL (0.000-0.055) Total Protein 7.0g/dL (6.4-8.2) Albumin 3.8g/dL (3.4-5.0) Creatine Kinase 115U/L (26-192) Triglycerides Level 50mg/dL (0-150) Cholesterol Level 174mg/dL (0-200) LDL Cholesterol, Calculated 80mg/dL (0-100) VLDL Cholesterol, Calculated 10mg/dL (0-40) HDL Cholesterol 84mg/dL (40-60) Cholesterol/HDL Ratio 2.1 Test 01/16/17 04:17 White Blood Count 5.0x10^3/uL (4.0-11.0) Red Blood Count 4.42x10^6/uL (3.50-5.40) Hemoglobin 12.5g/dL (12.0-15.5) Hematocrit 37.1% (36.0-47.0) Mean Corpuscular Volume 84fL (79-100) Mean Corpuscular Hemoglobin 28pg (25-35) Mean Corpuscular Hemoglobin Concent 34g/dL (31-37) Red Cell Distribution Width 14.9% (11.5-14.5) Platelet Count 245x10^3/uL (140-400) Neutrophils (%) (Auto) 87% (31-73) Lymphocytes (%) (Auto) 12% (24-48) Monocytes (%) (Auto) 1% (0-9) Eosinophils (%) (Auto) 0% (0-3) Basophils (%) (Auto) 0% (0-3) Neutrophils # (Auto) 4.3x10^3uL (1.8-7.7) Lymphocytes # (Auto) 0.6x10^3/uL (1.0-4.8) Monocytes # (Auto) 0.1x10^3/uL (0.0-1.1) Eosinophils # (Auto) 0.0x10^3/uL (0.0-0.7) Basophils # (Auto) 0.0x10^3/uL (0.0-0.2) Segmented Neutrophils % 91% (35-66) Lymphocytes % 9% (24-48) Platelet Estimate Adequate (ADEQUATE) Erythrocyte Sedimentation Rate 5 (0-25) Review of Systems Review of Systems No fever, chills, sob or chest pain Assessment and Plan Assessmemt and Plan Problems Medical Problems: (1) Cellulitis Status: Acute (2) Facial droop Status: Acute (3) Weakness Status: Acute Problems: Comment Review of Relevant I have reviewed the following items brandie (where applicable) has been applied. Labs Laboratory Tests Test 01/15/17 15:15 01/15/17 17:05 01/15/17 17:20 01/16/17 04:12 Glucose (Fingerstick) 94mg/dL (70-99) Urine Collection Type Unknown Urine Color Yellow Urine Clarity Clear Urine pH 7.0 Urine Specific [place] <=1.005 Urine Protein Negativemg/dL (NEG-TRACE) Urine Glucose (UA) Negativemg/dL (NEG) Urine Ketones (Stick) Negativemg/dL (NEG) Urine Blood Negative (NEG) Urine Nitrite Negative (NEG) Urine Bilirubin Negative (NEG) Urine Urobilinogen Dipstick 0.2mg/dL (0.2 mg/dL) Urine Leukocyte Esterase Small (NEG) Urine RBC 1-2/HPF (0-2) Urine WBC 5-10/HPF (0-4) Urine Squamous Epithelial Cells Few/LPF Urine Bacteria 0/HPF (0-FEW) Urine Mucus Slight/LPF Urine Opiates Screen Neg (NEG) Urine Methadone Screen Neg (NEG) Urine Barbiturates Neg (NEG) Urine Phencyclidine Screen Neg (NEG) Urine Amphetamine/Methamphetamine Neg (NEG) Urine Benzodiazepines Screen Neg (NEG) Urine Cocaine Screen Neg (NEG) Urine Cannabinoids Screen Neg (NEG) Urine Ethyl Alcohol Neg (NEG) White Blood Count 6.9x10^3/uL (4.0-11.0) Red Blood Count 4.58x10^6/uL (3.50-5.40) Hemoglobin 13.0g/dL (12.0-15.5) Hematocrit 38.7% (36.0-47.0) Mean Corpuscular Volume 85fL (79-100) Mean Corpuscular Hemoglobin 29pg (25-35) Mean Corpuscular Hemoglobin Concent 34g/dL (31-37) Red Cell Distribution Width 14.8% (11.5-14.5) Platelet Count 240x10^3/uL (140-400) Neutrophils (%) (Auto) 63% (31-73) Lymphocytes (%) (Auto) 29% (24-48) Monocytes (%) (Auto) 6% (0-9) Eosinophils (%) (Auto) 1% (0-3) Basophils (%) (Auto) 1% (0-3) Neutrophils # (Auto) 4.3x10^3uL (1.8-7.7) Lymphocytes # (Auto) 2.0x10^3/uL (1.0-4.8) Monocytes # (Auto) 0.4x10^3/uL (0.0-1.1) Eosinophils # (Auto) 0.1x10^3/uL (0.0-0.7) Basophils # (Auto) 0.1x10^3/uL (0.0-0.2) Prothrombin Time 12.1SEC (11.7-14.0) Prothromb Time International Ratio 1.0 (0.8-1.1) Activated Partial Thromboplast Time 29SEC (24-38) Sodium Level 131mmol/L (136-145) 136mmol/L (136-145) Potassium Level 2.9mmol/L (3.5-5.1) 3.6mmol/L (3.5-5.1) Chloride Level 92mmol/L (98-107) 98mmol/L (98-107) Carbon Dioxide Level 32mmol/L (21-32) 31mmol/L (21-32) Anion Gap 7 (6-14) 7 (6-14) Blood Urea Nitrogen 9mg/dL (7-20) 7mg/dL (7-20) Creatinine 0.8mg/dL (0.6-1.0) 0.6mg/dL (0.6-1.0) Estimated GFR (Cockcroft-Gault) 71.8 100.0 Glucose Level 87mg/dL (70-99) 120mg/dL (70-99) Calcium Level 9.8mg/dL (8.5-10.1) 9.2mg/dL (8.5-10.1) Total Bilirubin 0.3mg/dL (0.2-1.0) Direct Bilirubin 0.1mg/dL (0.0-0.2) Aspartate Amino Transf (AST/SGOT) 17U/L (15-37) Alanine Aminotransferase (ALT/SGPT) 18U/L (14-59) Alkaline Phosphatase 71U/L (46-116) Troponin I Quantitative < 0.017ng/mL (0.000-0.055) Total Protein 7.0g/dL (6.4-8.2) Albumin 3.8g/dL (3.4-5.0) Creatine Kinase 115U/L (26-192) Triglycerides Level 50mg/dL (0-150) Cholesterol Level 174mg/dL (0-200) LDL Cholesterol, Calculated 80mg/dL (0-100) VLDL Cholesterol, Calculated 10mg/dL (0-40) HDL Cholesterol 84mg/dL (40-60) Cholesterol/HDL Ratio 2.1 Test 01/16/17 04:17 White Blood Count 5.0x10^3/uL (4.0-11.0) Red Blood Count 4.42x10^6/uL (3.50-5.40) Hemoglobin 12.5g/dL (12.0-15.5) Hematocrit 37.1% (36.0-47.0) Mean Corpuscular Volume 84fL (79-100) Mean Corpuscular Hemoglobin 28pg (25-35) Mean Corpuscular Hemoglobin Concent 34g/dL (31-37) Red Cell Distribution Width 14.9% (11.5-14.5) Platelet Count 245x10^3/uL (140-400) Neutrophils (%) (Auto) 87% (31-73) Lymphocytes (%) (Auto) 12% (24-48) Monocytes (%) (Auto) 1% (0-9) Eosinophils (%) (Auto) 0% (0-3) Basophils (%) (Auto) 0% (0-3) Neutrophils # (Auto) 4.3x10^3uL (1.8-7.7) Lymphocytes # (Auto) 0.6x10^3/uL (1.0-4.8) Monocytes # (Auto) 0.1x10^3/uL (0.0-1.1) Eosinophils # (Auto) 0.0x10^3/uL (0.0-0.7) Basophils # (Auto) 0.0x10^3/uL (0.0-0.2) Segmented Neutrophils % 91% (35-66) Lymphocytes % 9% (24-48) Platelet Estimate Adequate (ADEQUATE) Erythrocyte Sedimentation Rate 5 (0-25) Laboratory Tests Test 01/15/17 15:15 01/15/17 17:05 01/15/17 17:20 01/16/17 04:12 Glucose (Fingerstick) 94mg/dL (70-99) Urine Collection Type Unknown Urine Color Yellow Urine Clarity Clear Urine pH 7.0 Urine Specific [place] <=1.005 Urine Protein Negativemg/dL (NEG-TRACE) Urine Glucose (UA) Negativemg/dL (NEG) Urine Ketones (Stick) Negativemg/dL (NEG) Urine Blood Negative (NEG) Urine Nitrite Negative (NEG) Urine Bilirubin Negative (NEG) Urine Urobilinogen Dipstick 0.2mg/dL (0.2 mg/dL) Urine Leukocyte Esterase Small (NEG) Urine RBC 1-2/HPF (0-2) Urine WBC 5-10/HPF (0-4) Urine Squamous Epithelial Cells Few/LPF Urine Bacteria 0/HPF (0-FEW) Urine Mucus Slight/LPF Urine Opiates Screen Neg (NEG) Urine Methadone Screen Neg (NEG) Urine Barbiturates Neg (NEG) Urine Phencyclidine Screen Neg (NEG) Urine Amphetamine/Methamphetamine Neg (NEG) Urine Benzodiazepines Screen Neg (NEG) Urine Cocaine Screen Neg (NEG) Urine Cannabinoids Screen Neg (NEG) Urine Ethyl Alcohol Neg (NEG) White Blood Count 6.9x10^3/uL (4.0-11.0) Red Blood Count 4.58x10^6/uL (3.50-5.40) Hemoglobin 13.0g/dL (12.0-15.5) Hematocrit 38.7% (36.0-47.0) Mean Corpuscular Volume 85fL (79-100) Mean Corpuscular Hemoglobin 29pg (25-35) Mean Corpuscular Hemoglobin Concent 34g/dL (31-37) Red Cell Distribution Width 14.8% (11.5-14.5) Platelet Count 240x10^3/uL (140-400) Neutrophils (%) (Auto) 63% (31-73) Lymphocytes (%) (Auto) 29% (24-48) Monocytes (%) (Auto) 6% (0-9) Eosinophils (%) (Auto) 1% (0-3) Basophils (%) (Auto) 1% (0-3) Neutrophils # (Auto) 4.3x10^3uL (1.8-7.7) Lymphocytes # (Auto) 2.0x10^3/uL (1.0-4.8) Monocytes # (Auto) 0.4x10^3/uL (0.0-1.1) Eosinophils # (Auto) 0.1x10^3/uL (0.0-0.7) Basophils # (Auto) 0.1x10^3/uL (0.0-0.2) Prothrombin Time 12.1SEC (11.7-14.0) Prothromb Time International Ratio 1.0 (0.8-1.1) Activated Partial Thromboplast Time 29SEC (24-38) Sodium Level 131mmol/L (136-145) 136mmol/L (136-145) Potassium Level 2.9mmol/L (3.5-5.1) 3.6mmol/L (3.5-5.1) Chloride Level 92mmol/L (98-107) 98mmol/L (98-107) Carbon Dioxide Level 32mmol/L (21-32) 31mmol/L (21-32) Anion Gap 7 (6-14) 7 (6-14) Blood Urea Nitrogen 9mg/dL (7-20) 7mg/dL (7-20) Creatinine 0.8mg/dL (0.6-1.0) 0.6mg/dL (0.6-1.0) Estimated GFR (Cockcroft-Gault) 71.8 100.0 Glucose Level 87mg/dL (70-99) 120mg/dL (70-99) Calcium Level 9.8mg/dL (8.5-10.1) 9.2mg/dL (8.5-10.1) Total Bilirubin 0.3mg/dL (0.2-1.0) Direct Bilirubin 0.1mg/dL (0.0-0.2) Aspartate Amino Transf (AST/SGOT) 17U/L (15-37) Alanine Aminotransferase (ALT/SGPT) 18U/L (14-59) Alkaline Phosphatase 71U/L (46-116) Troponin I Quantitative < 0.017ng/mL (0.000-0.055) Total Protein 7.0g/dL (6.4-8.2) Albumin 3.8g/dL (3.4-5.0) Creatine Kinase 115U/L (26-192) Triglycerides Level 50mg/dL (0-150) Cholesterol Level 174mg/dL (0-200) LDL Cholesterol, Calculated 80mg/dL (0-100) VLDL Cholesterol, Calculated 10mg/dL (0-40) HDL Cholesterol 84mg/dL (40-60) Cholesterol/HDL Ratio 2.1 Test 01/16/17 04:17 White Blood Count 5.0x10^3/uL (4.0-11.0) Red Blood Count 4.42x10^6/uL (3.50-5.40) Hemoglobin 12.5g/dL (12.0-15.5) Hematocrit 37.1% (36.0-47.0) Mean Corpuscular Volume 84fL (79-100) Mean Corpuscular Hemoglobin 28pg (25-35) Mean Corpuscular Hemoglobin Concent 34g/dL (31-37) Red Cell Distribution Width 14.9% (11.5-14.5) Platelet Count 245x10^3/uL (140-400) Neutrophils (%) (Auto) 87% (31-73) Lymphocytes (%) (Auto) 12% (24-48) Monocytes (%) (Auto) 1% (0-9) Eosinophils (%) (Auto) 0% (0-3) Basophils (%) (Auto) 0% (0-3) Neutrophils # (Auto) 4.3x10^3uL (1.8-7.7) Lymphocytes # (Auto) 0.6x10^3/uL (1.0-4.8) Monocytes # (Auto) 0.1x10^3/uL (0.0-1.1) Eosinophils # (Auto) 0.0x10^3/uL (0.0-0.7) Basophils # (Auto) 0.0x10^3/uL (0.0-0.2) Segmented Neutrophils % 91% (35-66) Lymphocytes % 9% (24-48) Platelet Estimate Adequate (ADEQUATE) Erythrocyte Sedimentation Rate 5 (0-25) Medications Current Medications Aspirin (Ecotrin) 81 mg DAILYWBKFT PO Last administered on 01/16/17 08:46; Start 01/16/17 at 08:00 Prednisone (Prednisone) 40 mg DAILY PO Last administered on 01/16/17 08:45; Start 01/15/17 at 16:15 Ondansetron HCl (Zofran) 4 mg PRN Q8HRS PRN IV NAUSEA/VOMITING; Start 01/15/17 at 16:15; Stop 01/15/17 at 16:15; Status DC Morphine Sulfate 2 mg PRN Q2HR PRN IV PAIN Last administered on 01/16/17 06:03 ; Start 01/15/17 at 16:15; Stop 01/16/17 at 16:14 Ondansetron HCl (Zofran) 4 mg PRN Q6HRS PRN IV NAUSEA/VOMITING Last administered on 01/16/17 08:45; Start 01/15/17 at 16:12 Acetaminophen (Tylenol) 650 mg PRN Q4HRS PRN PO headache; Start 01/15/17 at 16: 15 Amlodipine Besylate (Norvasc) 10 mg DAILY PO Last administered on 01/16/17 08: 47; Start 01/15/17 at 17:30 Atorvastatin Calcium (Lipitor) 40 mg QHS PO Last administered on 01/15/17 20:23 ; Start 01/15/17 at 21:00 Clonazepam (Klonopin) 1 mg QHS PO ; Start 01/15/17 at 21:00; Stop 01/15/17 at 21: 00; Status DC Docusate Sodium (Colace) 100 mg DAILY PO ; Start 01/16/17 at 09:00 Hydrochlorothiazide (Microzide) 25 mg DAILY PO Last administered on 01/16/17 08 :46; Start 01/15/17 at 17:30 Acetaminophen/ Hydrocodone Bitart (Lortab 5/325) 1 tab PRN Q6HRS PRN PO PAIN Last administered on 01/16/17 08:45; Start 01/15/17 at 16:15 Potassium Chloride (Klor-Con) 20 meq DAILY PO Last administered on 01/16/17 08: 45; Start 01/16/17 at 09:00 Non-Formulary Medication 70 mg WEEKLY PO ; Start 01/22/17 at 09:00; Status UNV Bupropion HCl (Wellbutrin Xl) 300 mg DAILY PO Last administered on 01/16/17 08: 46; Start 01/15/17 at 17:30 Vitamin D (Vitamin D3) 5,000 unit WEEKLY PO ; Start 01/22/17 at 09:00 Ibuprofen (Motrin) 600 mg PRN Q6HRS PRN PO PAIN; Start 01/15/17 at 16:45 Losartan Potassium (Cozaar) 100 mg DAILY PO Last administered on 01/16/17 08:47 ; Start 01/15/17 at 17:30 Lurasidone HCl (Latuda) 120 mg DAILYWBKFT PO ; Start 01/16/17 at 08:00; Stop 01/16 at 08:00; Status DC Non-Formulary Medication 1 each HS PO ; Start 01/15/17 at 21:00; Status UNV Naproxen (Naprosyn) 375 mg PRN BID PRN PO PAIN; Start 01/15/17 at 16:45 Sumatriptan Succinate (Imitrex) 100 mg PRN Q2HR PRN PO MIGRAINE HEADACHE; Start 01/15/17 at 16:45 Clonazepam (Klonopin) 1 mg PRN QHS PRN PO nerves Last administered on 01/16/17 00:14; Start 01/15/17 at 21:00 Potassium Chloride 20 meq 20 meq 1X ONCE PO Last administered on 01/15/17 18: 16; Start 01/15/17 at 18:30; Stop 01/15/17 at 18:31; Status DC Potassium Chloride/Sodium Chloride 1,000 ml @ 75 mls/hr 1X ONCE IV Last administered on 01/15/17 20:24; Start 01/15/17 at 18:15; Stop 01/16/17 at 07:34; Status DC Potassium Chloride/Sodium Chloride (KCl 20 Meq-NS 1,000 ml Iv Soln) 1,000 ml @ 75 mls/hr 1X ONCE IV Last administered on 01/16/17 06:03; Start 01/16/17 at 00: 00; Stop 01/16/17 at 13:19 Lurasidone HCl (Latuda) 120 mg QHS PO Last administered on 01/15/17 21:12; Start 01/15/17 at 21:30 Active Scripts Active Naproxen 375 Mg Tablet 375 Mg PO BID PRN Reported Stool Softener (Docusate Sodium) 100 Mg Capsule 100 Mg PO DAILY Melatonin 5 Mg Tablet (Melatonin/Pyridoxine Hcl (B6)) 1 Each Tablet 1 Each PO HS Latuda (Lurasidone Hcl) 120 Mg Tablet 120 Mg PO DAILYWSUP Bupropion Xl (Bupropion Hcl) 300 Mg Tab.er.24h 300 Mg PO DAILY Alendronate Sodium 70 Mg Tablet 70 Mg PO WEEKLY Ibuprofen 600 Mg Tablet 600 Mg PO Q6H PRN Hydrocodone-Apap 5-325 (Hydrocodone Bit/Acetaminophen) 1 Each Tablet 1 Tab PO PRN Q6HRS PRN Vitamin D-3 (Cholecalciferol (Vitamin D3)) 2,000 Unit Tablet 5,000 Unit PO WEEKLY Losartan Potassium 100 Mg Tablet 100 Mg PO DAILY Amlodipine Besylate 10 Mg Tablet 10 Mg PO DAILY Atorvastatin Calcium 40 Mg Tablet 40 Mg PO DAILY Hydrochlorothiazide Capsule (Hydrochlorothiazide) 12.5 Mg Capsule 25 Mg PO DAILY Potassium Chloride 20 Meq Tab.er.prt 20 Meq PO DAILY Maxalt (Rizatriptan Benzoate) 10 Mg Tablet 10 Mg PO PRN PRN Clonazepam 1 Mg Tablet 1 Mg PO Vitals/I & O Vital Sign - Last 24 Hours 01/15/17 01/15/17 01/15/17 01/15/17 15:11 15:29 16:44 17:30 Temp 98.1 98.1 Pulse 71 72 74 80 Resp 18 B/P 118/64 125/65 134/73 140/74 Pulse Ox 94 O2 Delivery Room Air 01/15/17 01/15/17 01/15/17 01/15/17 17:30 17:50 17:52 17:53 Temp 98.3 98.3 98.3 98.3 Pulse 80 80 80 Resp B/P 140/74 140/74 140/74 Pulse Ox 92 92 O2 Delivery Room Air Room Air Room Air 01/15/17 01/15/17 01/15/17 01/15/17 18:55 19:00 19:00 19:40 Temp 98.2 98.3 98.2 98.3 Pulse 90 80 Resp 18 B/P 120/73 140/74 Pulse Ox 92 95 92 92 O2 Delivery Room Air Room Air Room Air 01/15/17 01/15/17 01/15/17 01/15/17 20:00 20:00 20:00 23:00 Temp 97.5 98.0 97.5 97.5 98.0 97.5 Pulse 91 91 91 Resp 18 18 18 B/P 133/71 133/71 133/71 Pulse Ox 90 95 90 O2 Delivery Room Air Room Air Room Air Room Air 01/15/17 01/16/17 01/16/17 01/16/17 23:00 03:12 03:12 03:32 Temp 97.0 97.0 96.0 97.0 97.0 96.0 Pulse 91 91 75 Resp 18 18 B/P 133/71 133/71 130/85 Pulse Ox 90 90 95 O2 Delivery Room Air Room Air Room Air 01/16/17 01/16/17 01/16/17 01/16/17 05:03 06:03 07:00 08:00 Temp 98.4 98.4 Pulse 93 Resp 18 B/P 143/86 Pulse Ox 94 O2 Delivery Room Air Room Air Room Air Room Air 01/16/17 01/16/17 01/16/17 08:47 08:47 10:48 Temp 98.6 98.6 Pulse 93 93 94 Resp 18 B/P 143/86 143/86 148/86 Pulse Ox 93 O2 Delivery Room Air Intake and Output 01/15/17 01/15/17 01/16/17 15:00 23:00 07:00 Intake Total 0 ml Balance 0 ml MAYE YEUNG MD Jan 16, 2017 11:16
--- NOTE | 2017-01-16 11:25 | PDOC ---
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 I find no evidence of radiculopathy, myelopathy, neuropathy, or myopathy. Chronic back pain and debility including requirement to use a walker to ambulate. Plan Low dose prednisone for Betancourt's palsy, 40 mg daily for today and tomorrow, 20 mg 01/18, 10 mg 01/19, then stop Rehabilitation modalities I had written to hold psychiatric medications, but these have all been resumed. As she is much better I will hold off on reducing the doses. I have discussed with the patient that she needs to talk to her psychiatrist about minimizing the antipsychotic doses. Daily aspirin Patient requests to resume regular diet Possible discharge by tomorrow Subjective She feels much better, diarrhea gone. She admits that she has had tremors before Objective Vital Signs Date Time Temp Pulse Resp B/P Pulse Ox O2 Delivery O2 Flow Rate FiO2 01/16/17 10:48 98.6 94 18 148/86 93 Room Air 98.6 Intake and Output 01/16/17 07:00 Intake Total 0 ml Balance 0 ml Intake Oral 0 ml PHYSICAL EXAM Alert. Oriented to time, place and person. PERRL. EOMI. CN: Minimal left facial weakness. Much more facial expression. Muscle tone: Slight cogwheeling Muscle strength: 4/5 DTR: 2+ Plantar reflex: Flexor Gait: not examined in bed. Sensory exam: no abnormal findings. No cerebellar signs elicited. Review of Relevant I have reviewed the following items brandie (where applicable) has been applied. Labs Laboratory Tests Test 01/15/17 15:15 01/15/17 17:05 01/15/17 17:20 01/16/17 04:12 Glucose (Fingerstick) 94mg/dL (70-99) Urine Collection Type Unknown Urine Color Yellow Urine Clarity Clear Urine pH 7.0 Urine Specific [place] <=1.005 Urine Protein Negativemg/dL (NEG-TRACE) Urine Glucose (UA) Negativemg/dL (NEG) Urine Ketones (Stick) Negativemg/dL (NEG) Urine Blood Negative (NEG) Urine Nitrite Negative (NEG) Urine Bilirubin Negative (NEG) Urine Urobilinogen Dipstick 0.2mg/dL (0.2 mg/dL) Urine Leukocyte Esterase Small (NEG) Urine RBC 1-2/HPF (0-2) Urine WBC 5-10/HPF (0-4) Urine Squamous Epithelial Cells Few/LPF Urine Bacteria 0/HPF (0-FEW) Urine Mucus Slight/LPF Urine Opiates Screen Neg (NEG) Urine Methadone Screen Neg (NEG) Urine Barbiturates Neg (NEG) Urine Phencyclidine Screen Neg (NEG) Urine Amphetamine/Methamphetamine Neg (NEG) Urine Benzodiazepines Screen Neg (NEG) Urine Cocaine Screen Neg (NEG) Urine Cannabinoids Screen Neg (NEG) Urine Ethyl Alcohol Neg (NEG) White Blood Count 6.9x10^3/uL (4.0-11.0) Red Blood Count 4.58x10^6/uL (3.50-5.40) Hemoglobin 13.0g/dL (12.0-15.5) Hematocrit 38.7% (36.0-47.0) Mean Corpuscular Volume 85fL (79-100) Mean Corpuscular Hemoglobin 29pg (25-35) Mean Corpuscular Hemoglobin Concent 34g/dL (31-37) Red Cell Distribution Width 14.8% (11.5-14.5) Platelet Count 240x10^3/uL (140-400) Neutrophils (%) (Auto) 63% (31-73) Lymphocytes (%) (Auto) 29% (24-48) Monocytes (%) (Auto) 6% (0-9) Eosinophils (%) (Auto) 1% (0-3) Basophils (%) (Auto) 1% (0-3) Neutrophils # (Auto) 4.3x10^3uL (1.8-7.7) Lymphocytes # (Auto) 2.0x10^3/uL (1.0-4.8) Monocytes # (Auto) 0.4x10^3/uL (0.0-1.1) Eosinophils # (Auto) 0.1x10^3/uL (0.0-0.7) Basophils # (Auto) 0.1x10^3/uL (0.0-0.2) Prothrombin Time 12.1SEC (11.7-14.0) Prothromb Time International Ratio 1.0 (0.8-1.1) Activated Partial Thromboplast Time 29SEC (24-38) Sodium Level 131mmol/L (136-145) 136mmol/L (136-145) Potassium Level 2.9mmol/L (3.5-5.1) 3.6mmol/L (3.5-5.1) Chloride Level 92mmol/L (98-107) 98mmol/L (98-107) Carbon Dioxide Level 32mmol/L (21-32) 31mmol/L (21-32) Anion Gap 7 (6-14) 7 (6-14) Blood Urea Nitrogen 9mg/dL (7-20) 7mg/dL (7-20) Creatinine 0.8mg/dL (0.6-1.0) 0.6mg/dL (0.6-1.0) Estimated GFR (Cockcroft-Gault) 71.8 100.0 Glucose Level 87mg/dL (70-99) 120mg/dL (70-99) Calcium Level 9.8mg/dL (8.5-10.1) 9.2mg/dL (8.5-10.1) Total Bilirubin 0.3mg/dL (0.2-1.0) Direct Bilirubin 0.1mg/dL (0.0-0.2) Aspartate Amino Transf (AST/SGOT) 17U/L (15-37) Alanine Aminotransferase (ALT/SGPT) 18U/L (14-59) Alkaline Phosphatase 71U/L (46-116) Troponin I Quantitative < 0.017ng/mL (0.000-0.055) Total Protein 7.0g/dL (6.4-8.2) Albumin 3.8g/dL (3.4-5.0) Creatine Kinase 115U/L (26-192) Triglycerides Level 50mg/dL (0-150) Cholesterol Level 174mg/dL (0-200) LDL Cholesterol, Calculated 80mg/dL (0-100) VLDL Cholesterol, Calculated 10mg/dL (0-40) HDL Cholesterol 84mg/dL (40-60) Cholesterol/HDL Ratio 2.1 Test 01/16/17 04:17 White Blood Count 5.0x10^3/uL (4.0-11.0) Red Blood Count 4.42x10^6/uL (3.50-5.40) Hemoglobin 12.5g/dL (12.0-15.5) Hematocrit 37.1% (36.0-47.0) Mean Corpuscular Volume 84fL (79-100) Mean Corpuscular Hemoglobin 28pg (25-35) Mean Corpuscular Hemoglobin Concent 34g/dL (31-37) Red Cell Distribution Width 14.9% (11.5-14.5) Platelet Count 245x10^3/uL (140-400) Neutrophils (%) (Auto) 87% (31-73) Lymphocytes (%) (Auto) 12% (24-48) Monocytes (%) (Auto) 1% (0-9) Eosinophils (%) (Auto) 0% (0-3) Basophils (%) (Auto) 0% (0-3) Neutrophils # (Auto) 4.3x10^3uL (1.8-7.7) Lymphocytes # (Auto) 0.6x10^3/uL (1.0-4.8) Monocytes # (Auto) 0.1x10^3/uL (0.0-1.1) Eosinophils # (Auto) 0.0x10^3/uL (0.0-0.7) Basophils # (Auto) 0.0x10^3/uL (0.0-0.2) Segmented Neutrophils % 91% (35-66) Lymphocytes % 9% (24-48) Platelet Estimate Adequate (ADEQUATE) Erythrocyte Sedimentation Rate 5 (0-25) Laboratory Tests Test 01/15/17 15:15 01/15/17 17:05 01/15/17 17:20 01/16/17 04:12 Glucose (Fingerstick) 94mg/dL (70-99) Urine Collection Type Unknown Urine Color Yellow Urine Clarity Clear Urine pH 7.0 Urine Specific [place] <=1.005 Urine Protein Negativemg/dL (NEG-TRACE) Urine Glucose (UA) Negativemg/dL (NEG) Urine Ketones (Stick) Negativemg/dL (NEG) Urine Blood Negative (NEG) Urine Nitrite Negative (NEG) Urine Bilirubin Negative (NEG) Urine Urobilinogen Dipstick 0.2mg/dL (0.2 mg/dL) Urine Leukocyte Esterase Small (NEG) Urine RBC 1-2/HPF (0-2) Urine WBC 5-10/HPF (0-4) Urine Squamous Epithelial Cells Few/LPF Urine Bacteria 0/HPF (0-FEW) Urine Mucus Slight/LPF Urine Opiates Screen Neg (NEG) Urine Methadone Screen Neg (NEG) Urine Barbiturates Neg (NEG) Urine Phencyclidine Screen Neg (NEG) Urine Amphetamine/Methamphetamine Neg (NEG) Urine Benzodiazepines Screen Neg (NEG) Urine Cocaine Screen Neg (NEG) Urine Cannabinoids Screen Neg (NEG) Urine Ethyl Alcohol Neg (NEG) White Blood Count 6.9x10^3/uL (4.0-11.0) Red Blood Count 4.58x10^6/uL (3.50-5.40) Hemoglobin 13.0g/dL (12.0-15.5) Hematocrit 38.7% (36.0-47.0) Mean Corpuscular Volume 85fL (79-100) Mean Corpuscular Hemoglobin 29pg (25-35) Mean Corpuscular Hemoglobin Concent 34g/dL (31-37) Red Cell Distribution Width 14.8% (11.5-14.5) Platelet Count 240x10^3/uL (140-400) Neutrophils (%) (Auto) 63% (31-73) Lymphocytes (%) (Auto) 29% (24-48) Monocytes (%) (Auto) 6% (0-9) Eosinophils (%) (Auto) 1% (0-3) Basophils (%) (Auto) 1% (0-3) Neutrophils # (Auto) 4.3x10^3uL (1.8-7.7) Lymphocytes # (Auto) 2.0x10^3/uL (1.0-4.8) Monocytes # (Auto) 0.4x10^3/uL (0.0-1.1) Eosinophils # (Auto) 0.1x10^3/uL (0.0-0.7) Basophils # (Auto) 0.1x10^3/uL (0.0-0.2) Prothrombin Time 12.1SEC (11.7-14.0) Prothromb Time International Ratio 1.0 (0.8-1.1) Activated Partial Thromboplast Time 29SEC (24-38) Sodium Level 131mmol/L (136-145) 136mmol/L (136-145) Potassium Level 2.9mmol/L (3.5-5.1) 3.6mmol/L (3.5-5.1) Chloride Level 92mmol/L (98-107) 98mmol/L (98-107) Carbon Dioxide Level 32mmol/L (21-32) 31mmol/L (21-32) Anion Gap 7 (6-14) 7 (6-14) Blood Urea Nitrogen 9mg/dL (7-20) 7mg/dL (7-20) Creatinine 0.8mg/dL (0.6-1.0) 0.6mg/dL (0.6-1.0) Estimated GFR (Cockcroft-Gault) 71.8 100.0 Glucose Level 87mg/dL (70-99) 120mg/dL (70-99) Calcium Level 9.8mg/dL (8.5-10.1) 9.2mg/dL (8.5-10.1) Total Bilirubin 0.3mg/dL (0.2-1.0) Direct Bilirubin 0.1mg/dL (0.0-0.2) Aspartate Amino Transf (AST/SGOT) 17U/L (15-37) Alanine Aminotransferase (ALT/SGPT) 18U/L (14-59) Alkaline Phosphatase 71U/L (46-116) Troponin I Quantitative < 0.017ng/mL (0.000-0.055) Total Protein 7.0g/dL (6.4-8.2) Albumin 3.8g/dL (3.4-5.0) Creatine Kinase 115U/L (26-192) Triglycerides Level 50mg/dL (0-150) Cholesterol Level 174mg/dL (0-200) LDL Cholesterol, Calculated 80mg/dL (0-100) VLDL Cholesterol, Calculated 10mg/dL (0-40) HDL Cholesterol 84mg/dL (40-60) Cholesterol/HDL Ratio 2.1 Test 01/16/17 04:17 White Blood Count 5.0x10^3/uL (4.0-11.0) Red Blood Count 4.42x10^6/uL (3.50-5.40) Hemoglobin 12.5g/dL (12.0-15.5) Hematocrit 37.1% (36.0-47.0) Mean Corpuscular Volume 84fL (79-100) Mean Corpuscular Hemoglobin 28pg (25-35) Mean Corpuscular Hemoglobin Concent 34g/dL (31-37) Red Cell Distribution Width 14.9% (11.5-14.5) Platelet Count 245x10^3/uL (140-400) Neutrophils (%) (Auto) 87% (31-73) Lymphocytes (%) (Auto) 12% (24-48) Monocytes (%) (Auto) 1% (0-9) Eosinophils (%) (Auto) 0% (0-3) Basophils (%) (Auto) 0% (0-3) Neutrophils # (Auto) 4.3x10^3uL (1.8-7.7) Lymphocytes # (Auto) 0.6x10^3/uL (1.0-4.8) Monocytes # (Auto) 0.1x10^3/uL (0.0-1.1) Eosinophils # (Auto) 0.0x10^3/uL (0.0-0.7) Basophils # (Auto) 0.0x10^3/uL (0.0-0.2) Segmented Neutrophils % 91% (35-66) Lymphocytes % 9% (24-48) Platelet Estimate Adequate (ADEQUATE) Erythrocyte Sedimentation Rate 5 (0-25) Medications Current Medications Aspirin (Ecotrin) 81 mg DAILYWBKFT PO Last administered on 01/16/17 08:46; Start 01/16/17 at 08:00 Prednisone (Prednisone) 40 mg DAILY PO Last administered on 01/16/17 08:45; Start 01/15/17 at 16:15 Ondansetron HCl (Zofran) 4 mg PRN Q8HRS PRN IV NAUSEA/VOMITING; Start 01/15/17 at 16:15; Stop 01/15/17 at 16:15; Status DC Morphine Sulfate 2 mg PRN Q2HR PRN IV PAIN Last administered on 01/16/17 06:03 ; Start 01/15/17 at 16:15; Stop 01/16/17 at 16:14 Ondansetron HCl (Zofran) 4 mg PRN Q6HRS PRN IV NAUSEA/VOMITING Last administered on 01/16/17 08:45; Start 01/15/17 at 16:12 Acetaminophen (Tylenol) 650 mg PRN Q4HRS PRN PO headache; Start 01/15/17 at 16: 15 Amlodipine Besylate (Norvasc) 10 mg DAILY PO Last administered on 01/16/17 08: 47; Start 01/15/17 at 17:30 Atorvastatin Calcium (Lipitor) 40 mg QHS PO Last administered on 01/15/17 20:23 ; Start 01/15/17 at 21:00 Clonazepam (Klonopin) 1 mg QHS PO ; Start 01/15/17 at 21:00; Stop 01/15/17 at 21: 00; Status DC Docusate Sodium (Colace) 100 mg DAILY PO ; Start 01/16/17 at 09:00 Hydrochlorothiazide (Microzide) 25 mg DAILY PO Last administered on 01/16/17 08 :46; Start 01/15/17 at 17:30; Stop 01/16/17 at 11:11; Status DC Acetaminophen/ Hydrocodone Bitart (Lortab 5/325) 1 tab PRN Q6HRS PRN PO PAIN Last administered on 01/16/17 08:45; Start 01/15/17 at 16:15 Potassium Chloride (Klor-Con) 20 meq DAILY PO Last administered on 01/16/17 08: 45; Start 01/16/17 at 09:00 Non-Formulary Medication 70 mg WEEKLY PO ; Start 01/22/17 at 09:00; Status UNV Bupropion HCl (Wellbutrin Xl) 300 mg DAILY PO Last administered on 01/16/17 08: 46; Start 01/15/17 at 17:30 Vitamin D (Vitamin D3) 5,000 unit WEEKLY PO ; Start 01/22/17 at 09:00 Ibuprofen (Motrin) 600 mg PRN Q6HRS PRN PO PAIN; Start 01/15/17 at 16:45; Stop 01/16/17 at 11:11; Status DC Losartan Potassium (Cozaar) 100 mg DAILY PO Last administered on 01/16/17 08:47 ; Start 01/15/17 at 17:30 Lurasidone HCl (Latuda) 120 mg DAILYWBKFT PO ; Start 01/16/17 at 08:00; Stop 01/16 at 08:00; Status DC Non-Formulary Medication 1 each HS PO ; Start 01/15/17 at 21:00; Status UNV Naproxen (Naprosyn) 375 mg PRN BID PRN PO PAIN; Start 01/15/17 at 16:45 Sumatriptan Succinate (Imitrex) 100 mg PRN Q2HR PRN PO MIGRAINE HEADACHE; Start 01/15/17 at 16:45 Clonazepam (Klonopin) 1 mg PRN QHS PRN PO nerves Last administered on 01/16/17 00:14; Start 01/15/17 at 21:00 Potassium Chloride 20 meq 20 meq 1X ONCE PO Last administered on 01/15/17 18: 16; Start 01/15/17 at 18:30; Stop 01/15/17 at 18:31; Status DC Potassium Chloride/Sodium Chloride 1,000 ml @ 75 mls/hr 1X ONCE IV Last administered on 01/15/17 20:24; Start 01/15/17 at 18:15; Stop 01/16/17 at 07:34; Status DC Potassium Chloride/Sodium Chloride (KCl 20 Meq-NS 1,000 ml Iv Soln) 1,000 ml @ 75 mls/hr 1X ONCE IV Last administered on 01/16/17 06:03; Start 01/16/17 at 00: 00; Stop 01/16/17 at 13:19 Lurasidone HCl 120 mg 120 mg QHS PO Last administered on 01/15/17 21:12; Start 01/15/17 at 21:30 Sodium Chloride (Iv Sodium Chloride 0.9% 1000ml Bag) 1,000 ml @ 75 mls/hr 1X ONCE IV ; Start 01/16/17 at 11:30; Stop 01/17/17 at 00:49 Active Scripts Active Naproxen 375 Mg Tablet 375 Mg PO BID PRN Reported Stool Softener (Docusate Sodium) 100 Mg Capsule 100 Mg PO DAILY Melatonin 5 Mg Tablet (Melatonin/Pyridoxine Hcl (B6)) 1 Each Tablet 1 Each PO HS Latuda (Lurasidone Hcl) 120 Mg Tablet 120 Mg PO DAILYWSUP Bupropion Xl (Bupropion Hcl) 300 Mg Tab.er.24h 300 Mg PO DAILY Alendronate Sodium 70 Mg Tablet 70 Mg PO WEEKLY Ibuprofen 600 Mg Tablet 600 Mg PO Q6H PRN Hydrocodone-Apap 5-325 (Hydrocodone Bit/Acetaminophen) 1 Each Tablet 1 Tab PO PRN Q6HRS PRN Vitamin D-3 (Cholecalciferol (Vitamin D3)) 2,000 Unit Tablet 5,000 Unit PO WEEKLY Losartan Potassium 100 Mg Tablet 100 Mg PO DAILY Amlodipine Besylate 10 Mg Tablet 10 Mg PO DAILY Atorvastatin Calcium 40 Mg Tablet 40 Mg PO DAILY Hydrochlorothiazide Capsule (Hydrochlorothiazide) 12.5 Mg Capsule 25 Mg PO DAILY Potassium Chloride 20 Meq Tab.er.prt 20 Meq PO DAILY Maxalt (Rizatriptan Benzoate) 10 Mg Tablet 10 Mg PO PRN PRN Clonazepam 1 Mg Tablet 1 Mg PO Vitals/I & O Vital Sign - Last 24 Hours 01/15/17 01/15/17 01/15/17 01/15/17 15:11 15:29 16:44 17:30 Temp 98.1 98.1 Pulse 71 72 74 80 Resp 18 B/P 118/64 125/65 134/73 140/74 Pulse Ox 94 O2 Delivery Room Air 01/15/17 01/15/17 01/15/17 01/15/17 17:30 17:50 17:52 17:53 Temp 98.3 98.3 98.3 98.3 Pulse 80 80 80 Resp 17 B/P 140/74 140/74 140/74 Pulse Ox 92 92 O2 Delivery Room Air Room Air Room Air 01/15/17 01/15/17 01/15/17 01/15/17 18:55 19:00 19:00 19:40 Temp 98.2 98.3 98.2 98.3 Pulse 90 80 Resp 18 B/P 120/73 140/74 Pulse Ox 92 95 92 92 O2 Delivery Room Air Room Air Room Air 01/15/17 01/15/17 01/15/17 01/15/17 20:00 20:00 20:00 23:00 Temp 97.5 98.0 97.5 97.5 98.0 97.5 Pulse 91 91 91 Resp 18 18 18 B/P 133/71 133/71 133/71 Pulse Ox 90 95 90 O2 Delivery Room Air Room Air Room Air Room Air 01/15/17 01/16/17 01/16/17 01/16/17 23:00 03:12 03:12 03:32 Temp 97.0 97.0 96.0 97.0 97.0 96.0 Pulse 91 91 75 Resp 18 18 B/P 133/71 133/71 130/85 Pulse Ox 90 90 95 O2 Delivery Room Air Room Air Room Air 01/16/17 01/16/17 01/16/17 01/16/17 05:03 06:03 07:00 08:00 Temp 98.4 98.4 Pulse 93 Resp 18 B/P 143/86 Pulse Ox 94 O2 Delivery Room Air Room Air Room Air Room Air 01/16/17 01/16/17 01/16/17 08:47 08:47 10:48 Temp 98.6 98.6 Pulse 93 93 94 Resp 18 B/P 143/86 143/86 148/86 Pulse Ox 93 O2 Delivery Room Air Intake and Output 01/15/17 01/15/17 01/16/17 15:00 23:00 07:00 Intake Total 0 ml Balance 0 ml CORBY PETERSON MD Jan 16, 2017 11:24
[2017-01-16] MEDS ORDERED: IV NORMAL SALINE 1000ML BAG 1,000 ML IV ONE (11:30)
[2017-01-16 15:13] VITALS: BP 123/74
[2017-01-16 19:00] VITALS: BP 124/74
[2017-01-16] MEDS: ATORVASTATIN CALCIUM 40 MG TABLET. PO SCH (20:52)
[2017-01-16] MEDS: LURASIDONE 40 MG TABLET. PO SCH (20:52)
[2017-01-16] MEDS: ZOLPIDEM 5 MG TABLET. PO PRN (20:53)
[2017-01-16] MEDS: NAPROXEN 250 MG TABLET PO PRN (20:58)
[2017-01-16 22:52] VITALS: BP 146/86
[2017-01-17 03:00] VITALS: BP 131/76
[2017-01-17] MEDS: HYDROCODONE/APAP 5/325MG TABLET. PO PRN ×3 (03:12→21:10)
[2017-01-17 05:31] LABS: BASO % 0 % (0-3); EOS % 0 % (0-3); HEMATOCRIT 34.1 % (36.0-47.0); HEMOGLOBIN 11.6 g/dL (12.0-15.5); LYMPH # 2.7 x10^3/uL (1.0-4.8); LYMPH % 35 % (24-48); MEAN CORPUSCULAR HEMOGLOBIN 29 pg (25-35); MEAN CORPUSCULAR HGB CONC 34 g/dL (31-37); MEAN CORPUSCULAR VOLUME 84 fL (79-100); MONO % 8 % (0-9); NEUT % 57 % (31-73); PLATELET COUNT 250 x10^3/uL (140-400); RED BLOOD COUNT 4.06 x10^6/uL (3.50-5.40); WHITE BLOOD COUNT 7.8 x10^3/uL (4.0-11.0)
[2017-01-17 05:53] LABS: CALCIUM 8.8 mg/dL (8.5-10.1); CREATININE 0.6 mg/dL (0.6-1.0); POTASSIUM 3.4 mmol/L (3.5-5.1)
[2017-01-17 07:26] VITALS: BP 138/84
[2017-01-17] MEDS: buPROPion XL 150 MG TAB.ER.24H. PO SCH (07:44)
[2017-01-17] MEDS: PREDNISONE 20 MG TABLET PO SCH (07:44)
[2017-01-17] MEDS: POTASSIUM CHLORIDE 20 MEQ TABLET.ER. PO SCH (07:44)
[2017-01-17] MEDS: LOSARTAN POTASSIUM 50 MG TABLET. PO SCH (07:44)
[2017-01-17] MEDS: NAPROXEN 250 MG TABLET PO PRN (07:45)
[2017-01-17] MEDS: ASPIRIN ENTERIC COATED 81 MG TABLET.DR. PO SCH (07:45)
[2017-01-17] MEDS: DOCUSATE SODIUM 100 MG CAPSULE. PO SCH (07:45)
[2017-01-17] MEDS: AMLODIPINE BESYLATE 10 MG TABLET. PO SCH (07:45)
[2017-01-17] MEDS ORDERED: POTASSIUM CHLORIDE 20 MEQ TABLET.ER. PO ONE (10:30)
[2017-01-17 11:32] VITALS: BP 133/72
[2017-01-17] MEDS ORDERED: DOCUSATE SODIUM 100 MG CAPSULE. PO PRN (11:45)
--- NOTE | 2017-01-17 12:48 | PDOC ---
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 Plan Low dose prednisone for Betancourt's palsy, 40 mg daily for today, 20 mg 01/18, 10 mg , then stop Rehabilitation modalities I discussed reducing psychiatric medications or even starting Cogentin, but patient would like to discuss with her psychiatrist as she is very worried about recurrence of her bipolar disease Daily aspirin Possible discharge by tomorrow Subjective Feels better, but still feels weak and would like to stay 1 more day Objective Vital Signs Date Time Temp Pulse Resp B/P Pulse Ox O2 Delivery O2 Flow Rate FiO2 01/17/17 11:32 98.3 84 18 133/72 91 Room Air 98.3 Intake and Output 01/17/17 07:00 Intake Total 1770 ml Output Total 3500 ml Balance -1730 ml Intake Oral 1770 ml Output Urine Total 3500 ml # Voids 2 PHYSICAL EXAM Alert. Oriented to time, place and person. PERRL. EOMI. CN: Peripheral left facial weakness. Much more facial expression. Muscle tone: Slight cogwheeling, mild rest tremor Muscle strength: 4/5 DTR: 2+ Plantar reflex: Flexor Gait: not examined in bed. Sensory exam: no abnormal findings. No cerebellar signs elicited. Review of Relevant I have reviewed the following items brandie (where applicable) has been applied. Labs Laboratory Tests Test 01/15/17 15:15 01/15/17 17:05 01/15/17 17:20 01/16/17 04:12 Glucose (Fingerstick) 94mg/dL (70-99) Urine Collection Type Unknown Urine Color Yellow Urine Clarity Clear Urine pH 7.0 Urine Specific [place] <=1.005 Urine Protein Negativemg/dL (NEG-TRACE) Urine Glucose (UA) Negativemg/dL (NEG) Urine Ketones (Stick) Negativemg/dL (NEG) Urine Blood Negative (NEG) Urine Nitrite Negative (NEG) Urine Bilirubin Negative (NEG) Urine Urobilinogen Dipstick 0.2mg/dL (0.2 mg/dL) Urine Leukocyte Esterase Small (NEG) Urine RBC 1-2/HPF (0-2) Urine WBC 5-10/HPF (0-4) Urine Squamous Epithelial Cells Few/LPF Urine Bacteria 0/HPF (0-FEW) Urine Mucus Slight/LPF Urine Opiates Screen Neg (NEG) Urine Methadone Screen Neg (NEG) Urine Barbiturates Neg (NEG) Urine Phencyclidine Screen Neg (NEG) Urine Amphetamine/Methamphetamine Neg (NEG) Urine Benzodiazepines Screen Neg (NEG) Urine Cocaine Screen Neg (NEG) Urine Cannabinoids Screen Neg (NEG) Urine Ethyl Alcohol Neg (NEG) White Blood Count 6.9x10^3/uL (4.0-11.0) Red Blood Count 4.58x10^6/uL (3.50-5.40) Hemoglobin 13.0g/dL (12.0-15.5) Hematocrit 38.7% (36.0-47.0) Mean Corpuscular Volume 85fL (79-100) Mean Corpuscular Hemoglobin 29pg (25-35) Mean Corpuscular Hemoglobin Concent 34g/dL (31-37) Red Cell Distribution Width 14.8% (11.5-14.5) Platelet Count 240x10^3/uL (140-400) Neutrophils (%) (Auto) 63% (31-73) Lymphocytes (%) (Auto) 29% (24-48) Monocytes (%) (Auto) 6% (0-9) Eosinophils (%) (Auto) 1% (0-3) Basophils (%) (Auto) 1% (0-3) Neutrophils # (Auto) 4.3x10^3uL (1.8-7.7) Lymphocytes # (Auto) 2.0x10^3/uL (1.0-4.8) Monocytes # (Auto) 0.4x10^3/uL (0.0-1.1) Eosinophils # (Auto) 0.1x10^3/uL (0.0-0.7) Basophils # (Auto) 0.1x10^3/uL (0.0-0.2) Prothrombin Time 12.1SEC (11.7-14.0) Prothromb Time International Ratio 1.0 (0.8-1.1) Activated Partial Thromboplast Time 29SEC (24-38) Sodium Level 131mmol/L (136-145) 136mmol/L (136-145) Potassium Level 2.9mmol/L (3.5-5.1) 3.6mmol/L (3.5-5.1) Chloride Level 92mmol/L (98-107) 98mmol/L (98-107) Carbon Dioxide Level 32mmol/L (21-32) 31mmol/L (21-32) Anion Gap 7 (6-14) 7 (6-14) Blood Urea Nitrogen 9mg/dL (7-20) 7mg/dL (7-20) Creatinine 0.8mg/dL (0.6-1.0) 0.6mg/dL (0.6-1.0) Estimated GFR (Cockcroft-Gault) 71.8 100.0 Glucose Level 87mg/dL (70-99) 120mg/dL (70-99) Calcium Level 9.8mg/dL (8.5-10.1) 9.2mg/dL (8.5-10.1) Total Bilirubin 0.3mg/dL (0.2-1.0) Direct Bilirubin 0.1mg/dL (0.0-0.2) Aspartate Amino Transf (AST/SGOT) 17U/L (15-37) Alanine Aminotransferase (ALT/SGPT) 18U/L (14-59) Alkaline Phosphatase 71U/L (46-116) Troponin I Quantitative < 0.017ng/mL (0.000-0.055) Total Protein 7.0g/dL (6.4-8.2) Albumin 3.8g/dL (3.4-5.0) Creatine Kinase 115U/L (26-192) Triglycerides Level 50mg/dL (0-150) Cholesterol Level 174mg/dL (0-200) LDL Cholesterol, Calculated 80mg/dL (0-100) VLDL Cholesterol, Calculated 10mg/dL (0-40) HDL Cholesterol 84mg/dL (40-60) Cholesterol/HDL Ratio 2.1 Test 01/16/17 04:17 01/17/17 04:36 White Blood Count 5.0x10^3/uL (4.0-11.0) 7.8x10^3/uL (4.0-11.0) Red Blood Count 4.42x10^6/uL (3.50-5.40) 4.06x10^6/uL (3.50-5.40) Hemoglobin 12.5g/dL (12.0-15.5) 11.6g/dL (12.0-15.5) Hematocrit 37.1% (36.0-47.0) 34.1% (36.0-47.0) Mean Corpuscular Volume 84fL (79-100) 84fL (79-100) Mean Corpuscular Hemoglobin 28pg (25-35) 29pg (25-35) Mean Corpuscular Hemoglobin Concent 34g/dL (31-37) 34g/dL (31-37) Red Cell Distribution Width 14.9% (11.5-14.5) 15.0% (11.5-14.5) Platelet Count 245x10^3/uL (140-400) 250x10^3/uL (140-400) Neutrophils (%) (Auto) 87% (31-73) 57% (31-73) Lymphocytes (%) (Auto) 12% (24-48) 35% (24-48) Monocytes (%) (Auto) 1% (0-9) 8% (0-9) Eosinophils (%) (Auto) 0% (0-3) 0% (0-3) Basophils (%) (Auto) 0% (0-3) 0% (0-3) Neutrophils # (Auto) 4.3x10^3uL (1.8-7.7) 4.4x10^3uL (1.8-7.7) Lymphocytes # (Auto) 0.6x10^3/uL (1.0-4.8) 2.7x10^3/uL (1.0-4.8) Monocytes # (Auto) 0.1x10^3/uL (0.0-1.1) 0.6x10^3/uL (0.0-1.1) Eosinophils # (Auto) 0.0x10^3/uL (0.0-0.7) 0.0x10^3/uL (0.0-0.7) Basophils # (Auto) 0.0x10^3/uL (0.0-0.2) 0.0x10^3/uL (0.0-0.2) Segmented Neutrophils % 91% (35-66) Lymphocytes % 9% (24-48) Platelet Estimate Adequate (ADEQUATE) Erythrocyte Sedimentation Rate 5 (0-25) Sodium Level 138mmol/L (136-145) Potassium Level 3.4mmol/L (3.5-5.1) Chloride Level 102mmol/L (98-107) Carbon Dioxide Level 31mmol/L (21-32) Anion Gap 5 (6-14) Blood Urea Nitrogen 6mg/dL (7-20) Creatinine 0.6mg/dL (0.6-1.0) Estimated GFR (Cockcroft-Gault) 100.0 Glucose Level 102mg/dL (70-99) Calcium Level 8.8mg/dL (8.5-10.1) Laboratory Tests Test 01/17/17 04:36 White Blood Count 7.8x10^3/uL (4.0-11.0) Red Blood Count 4.06x10^6/uL (3.50-5.40) Hemoglobin 11.6g/dL (12.0-15.5) Hematocrit 34.1% (36.0-47.0) Mean Corpuscular Volume 84fL (79-100) Mean Corpuscular Hemoglobin 29pg (25-35) Mean Corpuscular Hemoglobin Concent 34g/dL (31-37) Red Cell Distribution Width 15.0% (11.5-14.5) Platelet Count 250x10^3/uL (140-400) Neutrophils (%) (Auto) 57% (31-73) Lymphocytes (%) (Auto) 35% (24-48) Monocytes (%) (Auto) 8% (0-9) Eosinophils (%) (Auto) 0% (0-3) Basophils (%) (Auto) 0% (0-3) Neutrophils # (Auto) 4.4x10^3uL (1.8-7.7) Lymphocytes # (Auto) 2.7x10^3/uL (1.0-4.8) Monocytes # (Auto) 0.6x10^3/uL (0.0-1.1) Eosinophils # (Auto) 0.0x10^3/uL (0.0-0.7) Basophils # (Auto) 0.0x10^3/uL (0.0-0.2) Sodium Level 138mmol/L (136-145) Potassium Level 3.4mmol/L (3.5-5.1) Chloride Level 102mmol/L (98-107) Carbon Dioxide Level 31mmol/L (21-32) Anion Gap 5 (6-14) Blood Urea Nitrogen 6mg/dL (7-20) Creatinine 0.6mg/dL (0.6-1.0) Estimated GFR (Cockcroft-Gault) 100.0 Glucose Level 102mg/dL (70-99) Calcium Level 8.8mg/dL (8.5-10.1) Medications Current Medications Aspirin (Ecotrin) 81 mg DAILYWBKFT PO Last administered on 01/17/17 07:45; Start 01/16/17 at 08:00 Prednisone (Prednisone) 40 mg DAILY PO Last administered on 01/17/17 07:44; Start 01/15/17 at 16:15 Ondansetron HCl (Zofran) 4 mg PRN Q8HRS PRN IV NAUSEA/VOMITING; Start 01/15/17 at 16:15; Stop 01/15/17 at 16:15; Status DC Morphine Sulfate 2 mg PRN Q2HR PRN IV PAIN Last administered on 01/16/17 06:03 ; Start 01/15/17 at 16:15; Stop 01/16/17 at 16:14; Status DC Ondansetron HCl (Zofran) 4 mg PRN Q6HRS PRN IV NAUSEA/VOMITING Last administered on 01/16/17 22:07; Start 01/15/17 at 16:12 Acetaminophen (Tylenol) 650 mg PRN Q4HRS PRN PO headache; Start 01/15/17 at 16: 15 Amlodipine Besylate (Norvasc) 10 mg DAILY PO Last administered on 01/17/17 07: 45; Start 01/15/17 at 17:30 Atorvastatin Calcium (Lipitor) 40 mg QHS PO Last administered on 01/16/17 20:52 ; Start 01/15/17 at 21:00 Clonazepam (Klonopin) 1 mg QHS PO ; Start 01/15/17 at 21:00; Stop 01/15/17 at 21: 00; Status DC Docusate Sodium (Colace) 100 mg DAILY PO Last administered on 01/17/17 07:45; Start 01/16/17 at 09:00 Hydrochlorothiazide (Microzide) 25 mg DAILY PO Last administered on 01/16/17 08 :46; Start 01/15/17 at 17:30; Stop 01/16/17 at 11:11; Status DC Acetaminophen/ Hydrocodone Bitart (Lortab 5/325) 1 tab PRN Q6HRS PRN PO PAIN Last administered on 01/17/17 11:37; Start 01/15/17 at 16:15 Potassium Chloride (Klor-Con) 20 meq DAILY PO Last administered on 01/17/17 07: 44; Start 01/16/17 at 09:00 Non-Formulary Medication 70 mg WEEKLY PO ; Start 01/22/17 at 09:00; Status UNV Bupropion HCl (Wellbutrin Xl) 300 mg DAILY PO Last administered on 01/17/17 07: 44; Start 01/15/17 at 17:30 Vitamin D (Vitamin D3) 5,000 unit WEEKLY PO ; Start 01/22/17 at 09:00 Ibuprofen (Motrin) 600 mg PRN Q6HRS PRN PO PAIN; Start 01/15/17 at 16:45; Stop 01/16/17 at 11:11; Status DC Losartan Potassium (Cozaar) 100 mg DAILY PO Last administered on 01/17/17 07:44 ; Start 01/15/17 at 17:30 Lurasidone HCl (Latuda) 120 mg DAILYWBKFT PO ; Start 01/16/17 at 08:00; Stop 01/16 at 08:00; Status DC Non-Formulary Medication 1 each HS PO ; Start 01/15/17 at 21:00; Status UNV Naproxen (Naprosyn) 375 mg PRN BID PRN PO PAIN Last administered on 01/17/17 07 :45; Start 01/15/17 at 16:45 Sumatriptan Succinate (Imitrex) 100 mg PRN Q2HR PRN PO MIGRAINE HEADACHE; Start 01/15/17 at 16:45 Clonazepam (Klonopin) 1 mg PRN QHS PRN PO nerves Last administered on 01/16/17 22:03; Start 01/15/17 at 21:00 Potassium Chloride 20 meq 20 meq 1X ONCE PO Last administered on 01/15/17 18: 16; Start 01/15/17 at 18:30; Stop 01/15/17 at 18:31; Status DC Potassium Chloride/Sodium Chloride 1,000 ml @ 75 mls/hr 1X ONCE IV Last administered on 01/15/17 20:24; Start 01/15/17 at 18:15; Stop 01/16/17 at 07:34; Status DC Potassium Chloride/Sodium Chloride (KCl 20 Meq-NS 1,000 ml Iv Soln) 1,000 ml @ 75 mls/hr 1X ONCE IV Last administered on 01/16/17 06:03; Start 01/16/17 at 00: 00; Stop 01/16/17 at 13:19; Status DC Lurasidone HCl 120 mg 120 mg QHS PO Last administered on 01/16/17 20:52; Start 01/15/17 at 21:30 Sodium Chloride (Iv Sodium Chloride 0.9% 1000ml Bag) 1,000 ml @ 75 mls/hr 1X ONCE IV Last administered on 01/16/17 22:04; Start 01/16/17 at 11:30; Stop at 00:49; Status DC Zolpidem Tartrate (Ambien) 5 mg PRN QHS PRN PO INSOMNIA Last administered on 20:53; Start 01/16/17 at 19:15 Potassium Chloride (Klor-Con) 40 meq 1X ONCE PO Last administered on 01/17/17 11:35; Start 01/17/17 at 10:30; Stop 01/17/17 at 10:33; Status DC Docusate Sodium (Colace) 100 mg PRN DAILY PRN PO CONSTIPATION; Start 01/17/17 at 11:45 Active Scripts Active Naproxen 375 Mg Tablet 375 Mg PO BID PRN Reported Stool Softener (Docusate Sodium) 100 Mg Capsule 100 Mg PO DAILY Melatonin 5 Mg Tablet (Melatonin/Pyridoxine Hcl (B6)) 1 Each Tablet 1 Each PO HS Latuda (Lurasidone Hcl) 120 Mg Tablet 120 Mg PO DAILYWSUP Bupropion Xl (Bupropion Hcl) 300 Mg Tab.er.24h 300 Mg PO DAILY Alendronate Sodium 70 Mg Tablet 70 Mg PO WEEKLY Ibuprofen 600 Mg Tablet 600 Mg PO Q6H PRN Hydrocodone-Apap 5-325 (Hydrocodone Bit/Acetaminophen) 1 Each Tablet 1 Tab PO PRN Q6HRS PRN Vitamin D-3 (Cholecalciferol (Vitamin D3)) 2,000 Unit Tablet 5,000 Unit PO WEEKLY Losartan Potassium 100 Mg Tablet 100 Mg PO DAILY Amlodipine Besylate 10 Mg Tablet 10 Mg PO DAILY Atorvastatin Calcium 40 Mg Tablet 40 Mg PO DAILY Hydrochlorothiazide Capsule (Hydrochlorothiazide) 12.5 Mg Capsule 25 Mg PO DAILY Potassium Chloride 20 Meq Tab.er.prt 20 Meq PO DAILY Maxalt (Rizatriptan Benzoate) 10 Mg Tablet 10 Mg PO PRN PRN Clonazepam 1 Mg Tablet 1 Mg PO Vitals/I & O Vital Sign - Last 24 Hours 01/16/17 01/16/17 01/16/17 01/16/17 15:13 19:00 20:00 22:52 Temp 98.2 98.3 98.0 98.2 98.3 98.0 Pulse 95 94 89 Resp B/P 123/74 124/74 146/86 Pulse Ox 92 92 96 O2 Delivery Room Air Room Air Room Air Room Air 01/17/17 01/17/17 01/17/17 01/17/17 03:00 03:12 04:45 07:26 Temp 98.1 98.2 98.1 98.2 Pulse 81 81 Resp 18 18 B/P 131/76 138/84 Pulse Ox 95 91 O2 Delivery Room Air Room Air Room Air Room Air 01/17/17 01/17/17 01/17/17 01/17/17 07:44 07:45 08:00 11:32 Temp 98.3 98.3 Pulse 81 81 84 Resp 18 B/P 138/84 138/84 133/72 Pulse Ox 91 O2 Delivery Room Air Room Air Intake and Output 01/16/17 01/16/17 01/17/17 15:00 23:00 07:00 Intake Total 320 ml 1000 ml 450 ml Output Total 550 ml 2000 ml 950 ml Balance -230 ml -1000 ml -500 ml CORBY PETERSON MD Jan 17, 2017 12:47
--- NOTE | 2017-01-17 13:23 | PDOC ---
PROGRESS NOTES Chief Complaint Chief Complaint 1. Left facial droop difftls include [place]' palsy 2. HTN, controlled 3,. Hx L2 kyphoplasty 4. Hyperlipidmeia 5. Recent . L2 traumatic compressive fx, closed s/p L@ kyphoplasty 6. BIPolar/schizophrenia 7. gastroenteritis 8. hypokalemia PLAN Got ASA MRI brain neg Start pred, 20mg tmr, then 10mg on Thursday, then dc. 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 on losartan, amlodipine would like to dc today, but pt refused to go home, living alone and PT recommend snf yesterday waiting for PT today, if still recommend snf, will get SW on Thursday, no SW over s History of Present Illness History of Present Illness still left facial droop, mild eating is ok diarrhea with loose BM 2 days, then no BM for 2 days Vitals Vitals Vital Signs Date Time Temp Pulse Resp B/P Pulse Ox O2 Delivery O2 Flow Rate FiO2 01/17/17 11:32 98.3 84 18 133/72 91 Room Air 98.3 Physical Exam Physical Exam left side mild facial droop General: Oriented X3, No acute distress Heart: Regular rate, Normal S1 Lungs: Clear Abdomen: Normal bowel sounds, Soft, No tenderness, No hepatosplenomegaly, No masses Extremities: No clubbing, No cyanosis, No edema, Normal pulses, No tenderness/ swelling Skin: No rashes, No breakdown, No significant lesion Labs LABS Laboratory Tests Test 01/17/17 04:36 White Blood Count 7.8x10^3/uL (4.0-11.0) Red Blood Count 4.06x10^6/uL (3.50-5.40) Hemoglobin 11.6g/dL (12.0-15.5) Hematocrit 34.1% (36.0-47.0) Mean Corpuscular Volume 84fL (79-100) Mean Corpuscular Hemoglobin 29pg (25-35) Mean Corpuscular Hemoglobin Concent 34g/dL (31-37) Red Cell Distribution Width 15.0% (11.5-14.5) Platelet Count 250x10^3/uL (140-400) Neutrophils (%) (Auto) 57% (31-73) Lymphocytes (%) (Auto) 35% (24-48) Monocytes (%) (Auto) 8% (0-9) Eosinophils (%) (Auto) 0% (0-3) Basophils (%) (Auto) 0% (0-3) Neutrophils # (Auto) 4.4x10^3uL (1.8-7.7) Lymphocytes # (Auto) 2.7x10^3/uL (1.0-4.8) Monocytes # (Auto) 0.6x10^3/uL (0.0-1.1) Eosinophils # (Auto) 0.0x10^3/uL (0.0-0.7) Basophils # (Auto) 0.0x10^3/uL (0.0-0.2) Sodium Level 138mmol/L (136-145) Potassium Level 3.4mmol/L (3.5-5.1) Chloride Level 102mmol/L (98-107) Carbon Dioxide Level 31mmol/L (21-32) Anion Gap 5 (6-14) Blood Urea Nitrogen 6mg/dL (7-20) Creatinine 0.6mg/dL (0.6-1.0) Estimated GFR (Cockcroft-Gault) 100.0 Glucose Level 102mg/dL (70-99) Calcium Level 8.8mg/dL (8.5-10.1) Review of Systems Review of Systems no fever, chills, sob or chest pain Assessment and Plan Assessmemt and Plan Problems Medical Problems: (1) Cellulitis Status: Acute (2) Facial droop Status: Acute (3) Weakness Status: Acute Problems: Comment Review of Relevant I have reviewed the following items brandie (where applicable) has been applied. Labs Laboratory Tests Test 01/15/17 15:15 01/15/17 17:05 01/15/17 17:20 01/16/17 04:12 Glucose (Fingerstick) 94mg/dL (70-99) Urine Collection Type Unknown Urine Color Yellow Urine Clarity Clear Urine pH 7.0 Urine Specific [place] <=1.005 Urine Protein Negativemg/dL (NEG-TRACE) Urine Glucose (UA) Negativemg/dL (NEG) Urine Ketones (Stick) Negativemg/dL (NEG) Urine Blood Negative (NEG) Urine Nitrite Negative (NEG) Urine Bilirubin Negative (NEG) Urine Urobilinogen Dipstick 0.2mg/dL (0.2 mg/dL) Urine Leukocyte Esterase Small (NEG) Urine RBC 1-2/HPF (0-2) Urine WBC 5-10/HPF (0-4) Urine Squamous Epithelial Cells Few/LPF Urine Bacteria 0/HPF (0-FEW) Urine Mucus Slight/LPF Urine Opiates Screen Neg (NEG) Urine Methadone Screen Neg (NEG) Urine Barbiturates Neg (NEG) Urine Phencyclidine Screen Neg (NEG) Urine Amphetamine/Methamphetamine Neg (NEG) Urine Benzodiazepines Screen Neg (NEG) Urine Cocaine Screen Neg (NEG) Urine Cannabinoids Screen Neg (NEG) Urine Ethyl Alcohol Neg (NEG) White Blood Count 6.9x10^3/uL (4.0-11.0) Red Blood Count 4.58x10^6/uL (3.50-5.40) Hemoglobin 13.0g/dL (12.0-15.5) Hematocrit 38.7% (36.0-47.0) Mean Corpuscular Volume 85fL (79-100) Mean Corpuscular Hemoglobin 29pg (25-35) Mean Corpuscular Hemoglobin Concent 34g/dL (31-37) Red Cell Distribution Width 14.8% (11.5-14.5) Platelet Count 240x10^3/uL (140-400) Neutrophils (%) (Auto) 63% (31-73) Lymphocytes (%) (Auto) 29% (24-48) Monocytes (%) (Auto) 6% (0-9) Eosinophils (%) (Auto) 1% (0-3) Basophils (%) (Auto) 1% (0-3) Neutrophils # (Auto) 4.3x10^3uL (1.8-7.7) Lymphocytes # (Auto) 2.0x10^3/uL (1.0-4.8) Monocytes # (Auto) 0.4x10^3/uL (0.0-1.1) Eosinophils # (Auto) 0.1x10^3/uL (0.0-0.7) Basophils # (Auto) 0.1x10^3/uL (0.0-0.2) Prothrombin Time 12.1SEC (11.7-14.0) Prothromb Time International Ratio 1.0 (0.8-1.1) Activated Partial Thromboplast Time 29SEC (24-38) Sodium Level 131mmol/L (136-145) 136mmol/L (136-145) Potassium Level 2.9mmol/L (3.5-5.1) 3.6mmol/L (3.5-5.1) Chloride Level 92mmol/L (98-107) 98mmol/L (98-107) Carbon Dioxide Level 32mmol/L (21-32) 31mmol/L (21-32) Anion Gap 7 (6-14) 7 (6-14) Blood Urea Nitrogen 9mg/dL (7-20) 7mg/dL (7-20) Creatinine 0.8mg/dL (0.6-1.0) 0.6mg/dL (0.6-1.0) Estimated GFR (Cockcroft-Gault) 71.8 100.0 Glucose Level 87mg/dL (70-99) 120mg/dL (70-99) Calcium Level 9.8mg/dL (8.5-10.1) 9.2mg/dL (8.5-10.1) Total Bilirubin 0.3mg/dL (0.2-1.0) Direct Bilirubin 0.1mg/dL (0.0-0.2) Aspartate Amino Transf (AST/SGOT) 17U/L (15-37) Alanine Aminotransferase (ALT/SGPT) 18U/L (14-59) Alkaline Phosphatase 71U/L (46-116) Troponin I Quantitative < 0.017ng/mL (0.000-0.055) Total Protein 7.0g/dL (6.4-8.2) Albumin 3.8g/dL (3.4-5.0) Creatine Kinase 115U/L (26-192) Triglycerides Level 50mg/dL (0-150) Cholesterol Level 174mg/dL (0-200) LDL Cholesterol, Calculated 80mg/dL (0-100) VLDL Cholesterol, Calculated 10mg/dL (0-40) HDL Cholesterol 84mg/dL (40-60) Cholesterol/HDL Ratio 2.1 Test 01/16/17 04:17 01/17/17 04:36 White Blood Count 5.0x10^3/uL (4.0-11.0) 7.8x10^3/uL (4.0-11.0) Red Blood Count 4.42x10^6/uL (3.50-5.40) 4.06x10^6/uL (3.50-5.40) Hemoglobin 12.5g/dL (12.0-15.5) 11.6g/dL (12.0-15.5) Hematocrit 37.1% (36.0-47.0) 34.1% (36.0-47.0) Mean Corpuscular Volume 84fL (79-100) 84fL (79-100) Mean Corpuscular Hemoglobin 28pg (25-35) 29pg (25-35) Mean Corpuscular Hemoglobin Concent 34g/dL (31-37) 34g/dL (31-37) Red Cell Distribution Width 14.9% (11.5-14.5) 15.0% (11.5-14.5) Platelet Count 245x10^3/uL (140-400) 250x10^3/uL (140-400) Neutrophils (%) (Auto) 87% (31-73) 57% (31-73) Lymphocytes (%) (Auto) 12% (24-48) 35% (24-48) Monocytes (%) (Auto) 1% (0-9) 8% (0-9) Eosinophils (%) (Auto) 0% (0-3) 0% (0-3) Basophils (%) (Auto) 0% (0-3) 0% (0-3) Neutrophils # (Auto) 4.3x10^3uL (1.8-7.7) 4.4x10^3uL (1.8-7.7) Lymphocytes # (Auto) 0.6x10^3/uL (1.0-4.8) 2.7x10^3/uL (1.0-4.8) Monocytes # (Auto) 0.1x10^3/uL (0.0-1.1) 0.6x10^3/uL (0.0-1.1) Eosinophils # (Auto) 0.0x10^3/uL (0.0-0.7) 0.0x10^3/uL (0.0-0.7) Basophils # (Auto) 0.0x10^3/uL (0.0-0.2) 0.0x10^3/uL (0.0-0.2) Segmented Neutrophils % 91% (35-66) Lymphocytes % 9% (24-48) Platelet Estimate Adequate (ADEQUATE) Erythrocyte Sedimentation Rate 5 (0-25) Sodium Level 138mmol/L (136-145) Potassium Level 3.4mmol/L (3.5-5.1) Chloride Level 102mmol/L (98-107) Carbon Dioxide Level 31mmol/L (21-32) Anion Gap 5 (6-14) Blood Urea Nitrogen 6mg/dL (7-20) Creatinine 0.6mg/dL (0.6-1.0) Estimated GFR (Cockcroft-Gault) 100.0 Glucose Level 102mg/dL (70-99) Calcium Level 8.8mg/dL (8.5-10.1) Laboratory Tests Test 01/17/17 04:36 White Blood Count 7.8x10^3/uL (4.0-11.0) Red Blood Count 4.06x10^6/uL (3.50-5.40) Hemoglobin 11.6g/dL (12.0-15.5) Hematocrit 34.1% (36.0-47.0) Mean Corpuscular Volume 84fL (79-100) Mean Corpuscular Hemoglobin 29pg (25-35) Mean Corpuscular Hemoglobin Concent 34g/dL (31-37) Red Cell Distribution Width 15.0% (11.5-14.5) Platelet Count 250x10^3/uL (140-400) Neutrophils (%) (Auto) 57% (31-73) Lymphocytes (%) (Auto) 35% (24-48) Monocytes (%) (Auto) 8% (0-9) Eosinophils (%) (Auto) 0% (0-3) Basophils (%) (Auto) 0% (0-3) Neutrophils # (Auto) 4.4x10^3uL (1.8-7.7) Lymphocytes # (Auto) 2.7x10^3/uL (1.0-4.8) Monocytes # (Auto) 0.6x10^3/uL (0.0-1.1) Eosinophils # (Auto) 0.0x10^3/uL (0.0-0.7) Basophils # (Auto) 0.0x10^3/uL (0.0-0.2) Sodium Level 138mmol/L (136-145) Potassium Level 3.4mmol/L (3.5-5.1) Chloride Level 102mmol/L (98-107) Carbon Dioxide Level 31mmol/L (21-32) Anion Gap 5 (6-14) Blood Urea Nitrogen 6mg/dL (7-20) Creatinine 0.6mg/dL (0.6-1.0) Estimated GFR (Cockcroft-Gault) 100.0 Glucose Level 102mg/dL (70-99) Calcium Level 8.8mg/dL (8.5-10.1) Medications Current Medications Aspirin (Ecotrin) 81 mg DAILYWBKFT PO Last administered on 01/17/17 07:45; Start 01/16/17 at 08:00 Prednisone (Prednisone) 40 mg DAILY PO Last administered on 01/17/17 07:44; Start 01/15/17 at 16:15; Stop 01/17/17 at 12:50; Status DC Ondansetron HCl (Zofran) 4 mg PRN Q8HRS PRN IV NAUSEA/VOMITING; Start 01/15/17 at 16:15; Stop 01/15/17 at 16:15; Status DC Morphine Sulfate 2 mg PRN Q2HR PRN IV PAIN Last administered on 01/16/17 06:03 ; Start 01/15/17 at 16:15; Stop 01/16/17 at 16:14; Status DC Ondansetron HCl (Zofran) 4 mg PRN Q6HRS PRN IV NAUSEA/VOMITING Last administered on 01/16/17 22:07; Start 01/15/17 at 16:12 Acetaminophen (Tylenol) 650 mg PRN Q4HRS PRN PO headache; Start 01/15/17 at 16: 15 Amlodipine Besylate (Norvasc) 10 mg DAILY PO Last administered on 01/17/17 07: 45; Start 01/15/17 at 17:30 Atorvastatin Calcium (Lipitor) 40 mg QHS PO Last administered on 01/16/17 20:52 ; Start 01/15/17 at 21:00 Clonazepam (Klonopin) 1 mg QHS PO ; Start 01/15/17 at 21:00; Stop 01/15/17 at 21: 00; Status DC Docusate Sodium (Colace) 100 mg DAILY PO Last administered on 01/17/17 07:45; Start 01/16/17 at 09:00 Hydrochlorothiazide (Microzide) 25 mg DAILY PO Last administered on 01/16/17 08 :46; Start 01/15/17 at 17:30; Stop 01/16/17 at 11:11; Status DC Acetaminophen/ Hydrocodone Bitart (Lortab 5/325) 1 tab PRN Q6HRS PRN PO PAIN Last administered on 01/17/17 11:37; Start 01/15/17 at 16:15 Potassium Chloride (Klor-Con) 20 meq DAILY PO Last administered on 01/17/17 07: 44; Start 01/16/17 at 09:00 Non-Formulary Medication 70 mg WEEKLY PO ; Start 01/22/17 at 09:00; Status UNV Bupropion HCl (Wellbutrin Xl) 300 mg DAILY PO Last administered on 01/17/17 07: 44; Start 01/15/17 at 17:30 Vitamin D (Vitamin D3) 5,000 unit WEEKLY PO ; Start 01/22/17 at 09:00 Ibuprofen (Motrin) 600 mg PRN Q6HRS PRN PO PAIN; Start 01/15/17 at 16:45; Stop 01/16/17 at 11:11; Status DC Losartan Potassium (Cozaar) 100 mg DAILY PO Last administered on 01/17/17 07:44 ; Start 01/15/17 at 17:30 Lurasidone HCl (Latuda) 120 mg DAILYWBKFT PO ; Start 01/16/17 at 08:00; Stop 01/16 at 08:00; Status DC Non-Formulary Medication 1 each HS PO ; Start 01/15/17 at 21:00; Status UNV Naproxen (Naprosyn) 375 mg PRN BID PRN PO PAIN Last administered on 01/17/17 07 :45; Start 01/15/17 at 16:45 Sumatriptan Succinate (Imitrex) 100 mg PRN Q2HR PRN PO MIGRAINE HEADACHE; Start 01/15/17 at 16:45 Clonazepam (Klonopin) 1 mg PRN QHS PRN PO nerves Last administered on 01/16/17 22:03; Start 01/15/17 at 21:00 Potassium Chloride 20 meq 20 meq 1X ONCE PO Last administered on 01/15/17 18: 16; Start 01/15/17 at 18:30; Stop 01/15/17 at 18:31; Status DC Potassium Chloride/Sodium Chloride 1,000 ml @ 75 mls/hr 1X ONCE IV Last administered on 01/15/17 20:24; Start 01/15/17 at 18:15; Stop 01/16/17 at 07:34; Status DC Potassium Chloride/Sodium Chloride (KCl 20 Meq-NS 1,000 ml Iv Soln) 1,000 ml @ 75 mls/hr 1X ONCE IV Last administered on 01/16/17 06:03; Start 01/16/17 at 00: 00; Stop 01/16/17 at 13:19; Status DC Lurasidone HCl 120 mg 120 mg QHS PO Last administered on 01/16/17 20:52; Start 01/15/17 at 21:30 Sodium Chloride (Iv Sodium Chloride 0.9% 1000ml Bag) 1,000 ml @ 75 mls/hr 1X ONCE IV Last administered on 01/16/17 22:04; Start 01/16/17 at 11:30; Stop at 00:49; Status DC Zolpidem Tartrate (Ambien) 5 mg PRN QHS PRN PO INSOMNIA Last administered on 20:53; Start 01/16/17 at 19:15 Potassium Chloride (Klor-Con) 40 meq 1X ONCE PO Last administered on 01/17/17 11:35; Start 01/17/17 at 10:30; Stop 01/17/17 at 10:33; Status DC Docusate Sodium (Colace) 100 mg PRN DAILY PRN PO CONSTIPATION; Start 01/17/17 at 11:45 Prednisone (Prednisone) 20 mg DAILY PO ; Start 01/18/17 at 09:00; Stop 01/19/17 at 09:00 Active Scripts Active Naproxen 375 Mg Tablet 375 Mg PO BID PRN Reported Stool Softener (Docusate Sodium) 100 Mg Capsule 100 Mg PO DAILY Melatonin 5 Mg Tablet (Melatonin/Pyridoxine Hcl (B6)) 1 Each Tablet 1 Each PO HS Latuda (Lurasidone Hcl) 120 Mg Tablet 120 Mg PO DAILYWSUP Bupropion Xl (Bupropion Hcl) 300 Mg Tab.er.24h 300 Mg PO DAILY Alendronate Sodium 70 Mg Tablet 70 Mg PO WEEKLY Ibuprofen 600 Mg Tablet 600 Mg PO Q6H PRN Hydrocodone-Apap 5-325 (Hydrocodone Bit/Acetaminophen) 1 Each Tablet 1 Tab PO PRN Q6HRS PRN Vitamin D-3 (Cholecalciferol (Vitamin D3)) 2,000 Unit Tablet 5,000 Unit PO WEEKLY Losartan Potassium 100 Mg Tablet 100 Mg PO DAILY Amlodipine Besylate 10 Mg Tablet 10 Mg PO DAILY Atorvastatin Calcium 40 Mg Tablet 40 Mg PO DAILY Hydrochlorothiazide Capsule (Hydrochlorothiazide) 12.5 Mg Capsule 25 Mg PO DAILY Potassium Chloride 20 Meq Tab.er.prt 20 Meq PO DAILY Maxalt (Rizatriptan Benzoate) 10 Mg Tablet 10 Mg PO PRN PRN Clonazepam 1 Mg Tablet 1 Mg PO Vitals/I & O Vital Sign - Last 24 Hours 01/16/17 01/16/17 01/16/17 01/16/17 15:13 19:00 20:00 22:52 Temp 98.2 98.3 98.0 98.2 98.3 98.0 Pulse 95 94 89 Resp 18 B/P 123/74 124/74 146/86 Pulse Ox 92 92 96 O2 Delivery Room Air Room Air Room Air Room Air 01/17/17 01/17/17 01/17/17 01/17/17 03:00 03:12 04:45 07:26 Temp 98.1 98.2 98.1 98.2 Pulse 81 81 Resp 18 18 B/P 131/76 138/84 Pulse Ox 95 91 O2 Delivery Room Air Room Air Room Air Room Air 01/17/17 01/17/17 01/17/17 01/17/17 07:44 07:45 08:00 11:32 Temp 98.3 98.3 Pulse 81 81 84 Resp 18 B/P 138/84 138/84 133/72 Pulse Ox 91 O2 Delivery Room Air Room Air Intake and Output 01/16/17 01/16/17 01/17/17 15:00 23:00 07:00 Intake Total 320 ml 1000 ml 450 ml Output Total 550 ml 2000 ml 950 ml Balance -230 ml -1000 ml -500 ml MAYE YEUNG MD Jan 17, 2017 13:23
[2017-01-17 14:36] VITALS: BP 115/69
[2017-01-17 19:00] VITALS: BP 144/80
[2017-01-17] MEDS: ZOLPIDEM 5 MG TABLET. PO PRN (21:09)
[2017-01-17] MEDS: ATORVASTATIN CALCIUM 40 MG TABLET. PO SCH (21:09)
[2017-01-17] MEDS: LURASIDONE 40 MG TABLET. PO SCH (21:09)
[2017-01-17 23:00] VITALS: BP 148/84
[2017-01-17] MEDS: CLONAZEPAM 1 MG TABLET. PO PRN (23:01)
[2017-01-18 03:00] VITALS: BP 123/84
[2017-01-18] MEDS: HYDROCODONE/APAP 5/325MG TABLET. PO PRN ×4 (03:11→21:46)
[2017-01-18 05:41] LABS: CALCIUM 9.1 mg/dL (8.5-10.1); CREATININE 0.6 mg/dL (0.6-1.0); POTASSIUM 3.9 mmol/L (3.5-5.1)
[2017-01-18 07:36] VITALS: BP 137/88
[2017-01-18] MEDS: ASPIRIN ENTERIC COATED 81 MG TABLET.DR. PO SCH (08:42)
[2017-01-18] MEDS: buPROPion XL 150 MG TAB.ER.24H. PO SCH (08:42)
[2017-01-18] MEDS: POTASSIUM CHLORIDE 20 MEQ TABLET.ER. PO SCH (08:42)
[2017-01-18] MEDS: PREDNISONE 20 MG TABLET PO SCH (08:43)
[2017-01-18] MEDS: DOCUSATE SODIUM 100 MG CAPSULE. PO SCH (08:43)
[2017-01-18] MEDS: LOSARTAN POTASSIUM 50 MG TABLET. PO SCH (08:47)
[2017-01-18] MEDS: AMLODIPINE BESYLATE 10 MG TABLET. PO SCH (08:47)
[2017-01-18 10:33] VITALS: BP 123/77
--- NOTE | 2017-01-18 12:59 | PDOC ---
PROGRESS NOTES Chief Complaint Chief Complaint 1. Left facial droop difftls include [place]' palsy 2. HTN, controlled 3,. Hx L2 kyphoplasty 4. Hyperlipidmeia 5. Recent . L2 traumatic compressive fx, closed s/p L@ kyphoplasty 6. BIPolar/schizophrenia 7. gastroenteritis 8. hypokalemia PLAN Got ASA MRI brain neg Start pred, 20mg today then 10mg on Thursday, then dc. 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 on losartan, amlodipine would like to dc today, but pt refused to go home, living alone and PT recommend snf yesterday PT still recommend snf, will get SW on Thursday, no SW over s History of Present Illness History of Present Illness still left facial droop, mild eating is ok diarrhea with loose BM 2 days, then no BM for 2 days Vitals Vitals Vital Signs Date Time Temp Pulse Resp B/P Pulse Ox O2 Delivery O2 Flow Rate FiO2 01/18/17 10:33 98.1 76 18 123/77 93 Room Air 98.1 Physical Exam Physical Exam left side mild facial droop General: Oriented X3, No acute distress Heart: Regular rate, Normal S1 Lungs: Clear Abdomen: Normal bowel sounds, Soft, No tenderness, No hepatosplenomegaly, No masses Extremities: No clubbing, No cyanosis, No edema, Normal pulses, No tenderness/ swelling Skin: No rashes, No breakdown, No significant lesion Labs LABS Laboratory Tests Test 01/18/17 04:34 Sodium Level 139mmol/L (136-145) Potassium Level 3.9mmol/L (3.5-5.1) Chloride Level 102mmol/L (98-107) Carbon Dioxide Level 32mmol/L (21-32) Anion Gap 5 (6-14) Blood Urea Nitrogen 8mg/dL (7-20) Creatinine 0.6mg/dL (0.6-1.0) Estimated GFR (Cockcroft-Gault) 100.0 Glucose Level 91mg/dL (70-99) Calcium Level 9.1mg/dL (8.5-10.1) Review of Systems Review of Systems no fever, chills, sob or chest pain Assessment and Plan Assessmemt and Plan Problems Medical Problems: (1) Cellulitis Status: Acute (2) Facial droop Status: Acute (3) Weakness Status: Acute Problems: Comment Review of Relevant I have reviewed the following items brandie (where applicable) has been applied. Labs Laboratory Tests Test 01/17/17 04:36 01/18/17 04:34 White Blood Count 7.8x10^3/uL (4.0-11.0) Red Blood Count 4.06x10^6/uL (3.50-5.40) Hemoglobin 11.6g/dL (12.0-15.5) Hematocrit 34.1% (36.0-47.0) Mean Corpuscular Volume 84fL (79-100) Mean Corpuscular Hemoglobin 29pg (25-35) Mean Corpuscular Hemoglobin Concent 34g/dL (31-37) Red Cell Distribution Width 15.0% (11.5-14.5) Platelet Count 250x10^3/uL (140-400) Neutrophils (%) (Auto) 57% (31-73) Lymphocytes (%) (Auto) 35% (24-48) Monocytes (%) (Auto) 8% (0-9) Eosinophils (%) (Auto) 0% (0-3) Basophils (%) (Auto) 0% (0-3) Neutrophils # (Auto) 4.4x10^3uL (1.8-7.7) Lymphocytes # (Auto) 2.7x10^3/uL (1.0-4.8) Monocytes # (Auto) 0.6x10^3/uL (0.0-1.1) Eosinophils # (Auto) 0.0x10^3/uL (0.0-0.7) Basophils # (Auto) 0.0x10^3/uL (0.0-0.2) Sodium Level 138mmol/L (136-145) 139mmol/L (136-145) Potassium Level 3.4mmol/L (3.5-5.1) 3.9mmol/L (3.5-5.1) Chloride Level 102mmol/L (98-107) 102mmol/L (98-107) Carbon Dioxide Level 31mmol/L (21-32) 32mmol/L (21-32) Anion Gap 5 (6-14) 5 (6-14) Blood Urea Nitrogen 6mg/dL (7-20) 8mg/dL (7-20) Creatinine 0.6mg/dL (0.6-1.0) 0.6mg/dL (0.6-1.0) Estimated GFR (Cockcroft-Gault) 100.0 100.0 Glucose Level 102mg/dL (70-99) 91mg/dL (70-99) Calcium Level 8.8mg/dL (8.5-10.1) 9.1mg/dL (8.5-10.1) Laboratory Tests Test 01/18/17 04:34 Sodium Level 139mmol/L (136-145) Potassium Level 3.9mmol/L (3.5-5.1) Chloride Level 102mmol/L (98-107) Carbon Dioxide Level 32mmol/L (21-32) Anion Gap 5 (6-14) Blood Urea Nitrogen 8mg/dL (7-20) Creatinine 0.6mg/dL (0.6-1.0) Estimated GFR (Cockcroft-Gault) 100.0 Glucose Level 91mg/dL (70-99) Calcium Level 9.1mg/dL (8.5-10.1) Medications Current Medications Aspirin (Ecotrin) 81 mg DAILYWBKFT PO Last administered on 01/18/17 08:42; Start 01/16/17 at 08:00 Prednisone (Prednisone) 40 mg DAILY PO Last administered on 01/17/17 07:44; Start 01/15/17 at 16:15; Stop 01/17/17 at 12:50; Status DC Ondansetron HCl (Zofran) 4 mg PRN Q8HRS PRN IV NAUSEA/VOMITING; Start 01/15/17 at 16:15; Stop 01/15/17 at 16:15; Status DC Morphine Sulfate 2 mg PRN Q2HR PRN IV PAIN Last administered on 01/16/17 06:03 ; Start 01/15/17 at 16:15; Stop 01/16/17 at 16:14; Status DC Ondansetron HCl (Zofran) 4 mg PRN Q6HRS PRN IV NAUSEA/VOMITING Last administered on 01/16/17 22:07; Start 01/15/17 at 16:12 Acetaminophen (Tylenol) 650 mg PRN Q4HRS PRN PO headache; Start 01/15/17 at 16: 15 Amlodipine Besylate (Norvasc) 10 mg DAILY PO Last administered on 01/18/17 08: 47; Start 01/15/17 at 17:30 Atorvastatin Calcium (Lipitor) 40 mg QHS PO Last administered on 01/17/17 21:09 ; Start 01/15/17 at 21:00 Clonazepam (Klonopin) 1 mg QHS PO ; Start 01/15/17 at 21:00; Stop 01/15/17 at 21: 00; Status DC Docusate Sodium (Colace) 100 mg DAILY PO Last administered on 01/18/17 08:43; Start 01/16/17 at 09:00 Hydrochlorothiazide (Microzide) 25 mg DAILY PO Last administered on 01/16/17 08 :46; Start 01/15/17 at 17:30; Stop 01/16/17 at 11:11; Status DC Acetaminophen/ Hydrocodone Bitart (Lortab 5/325) 1 tab PRN Q6HRS PRN PO PAIN Last administered on 01/18/17 08:46; Start 01/15/17 at 16:15 Potassium Chloride (Klor-Con) 20 meq DAILY PO Last administered on 01/18/17 08: 42; Start 01/16/17 at 09:00 Non-Formulary Medication 70 mg WEEKLY PO ; Start 01/22/17 at 09:00; Status UNV Bupropion HCl (Wellbutrin Xl) 300 mg DAILY PO Last administered on 01/18/17 08: 42; Start 01/15/17 at 17:30 Vitamin D (Vitamin D3) 5,000 unit WEEKLY PO ; Start 01/22/17 at 09:00 Ibuprofen (Motrin) 600 mg PRN Q6HRS PRN PO PAIN; Start 01/15/17 at 16:45; Stop 01/16/17 at 11:11; Status DC Losartan Potassium (Cozaar) 100 mg DAILY PO Last administered on 01/18/17 08:47 ; Start 01/15/17 at 17:30 Lurasidone HCl (Latuda) 120 mg DAILYWBKFT PO ; Start 01/16/17 at 08:00; Stop 01/16 at 08:00; Status DC Non-Formulary Medication 1 each HS PO ; Start 01/15/17 at 21:00; Status UNV Naproxen (Naprosyn) 375 mg PRN BID PRN PO PAIN Last administered on 01/17/17 07 :45; Start 01/15/17 at 16:45 Sumatriptan Succinate (Imitrex) 100 mg PRN Q2HR PRN PO MIGRAINE HEADACHE Last administered on 01/17/17 17:12; Start 01/15/17 at 16:45 Clonazepam (Klonopin) 1 mg PRN QHS PRN PO nerves Last administered on 01/17/17 23:01; Start 01/15/17 at 21:00 Potassium Chloride 20 meq 20 meq 1X ONCE PO Last administered on 01/15/17 18: 16; Start 01/15/17 at 18:30; Stop 01/15/17 at 18:31; Status DC Potassium Chloride/Sodium Chloride 1,000 ml @ 75 mls/hr 1X ONCE IV Last administered on 01/15/17 20:24; Start 01/15/17 at 18:15; Stop 01/16/17 at 07:34; Status DC Potassium Chloride/Sodium Chloride (KCl 20 Meq-NS 1,000 ml Iv Soln) 1,000 ml @ 75 mls/hr 1X ONCE IV Last administered on 01/16/17 06:03; Start 01/16/17 at 00: 00; Stop 01/16/17 at 13:19; Status DC Lurasidone HCl 120 mg 120 mg QHS PO Last administered on 01/17/17 21:09; Start 01/15/17 at 21:30 Sodium Chloride (Iv Sodium Chloride 0.9% 1000ml Bag) 1,000 ml @ 75 mls/hr 1X ONCE IV Last administered on 01/16/17 22:04; Start 01/16/17 at 11:30; Stop at 00:49; Status DC Zolpidem Tartrate (Ambien) 5 mg PRN QHS PRN PO INSOMNIA Last administered on 21:09; Start 01/16/17 at 19:15 Potassium Chloride (Klor-Con) 40 meq 1X ONCE PO Last administered on 01/17/17 11:35; Start 01/17/17 at 10:30; Stop 01/17/17 at 10:33; Status DC Docusate Sodium (Colace) 100 mg PRN DAILY PRN PO CONSTIPATION; Start 01/17/17 at 11:45 Prednisone (Prednisone) 20 mg DAILY PO Last administered on 01/18/17t 08:43; Start 01/18/17 at 09:00; Stop 01/19/17 at 09:00 Polyethylene Glycol (miraLAX PACKET) 17 gm PRN DAILY PRN PO CONSTIPATION; Start 01/18/17 at 11:45 Active Scripts Active Naproxen 375 Mg Tablet 375 Mg PO BID PRN Reported Stool Softener (Docusate Sodium) 100 Mg Capsule 100 Mg PO DAILY Melatonin 5 Mg Tablet (Melatonin/Pyridoxine Hcl (B6)) 1 Each Tablet 1 Each PO HS Latuda (Lurasidone Hcl) 120 Mg Tablet 120 Mg PO DAILYWSUP Bupropion Xl (Bupropion Hcl) 300 Mg Tab.er.24h 300 Mg PO DAILY Alendronate Sodium 70 Mg Tablet 70 Mg PO WEEKLY Ibuprofen 600 Mg Tablet 600 Mg PO Q6H PRN Hydrocodone-Apap 5-325 (Hydrocodone Bit/Acetaminophen) 1 Each Tablet 1 Tab PO PRN Q6HRS PRN Vitamin D-3 (Cholecalciferol (Vitamin D3)) 2,000 Unit Tablet 5,000 Unit PO WEEKLY Losartan Potassium 100 Mg Tablet 100 Mg PO DAILY Amlodipine Besylate 10 Mg Tablet 10 Mg PO DAILY Atorvastatin Calcium 40 Mg Tablet 40 Mg PO DAILY Hydrochlorothiazide Capsule (Hydrochlorothiazide) 12.5 Mg Capsule 25 Mg PO DAILY Potassium Chloride 20 Meq Tab.er.prt 20 Meq PO DAILY Maxalt (Rizatriptan Benzoate) 10 Mg Tablet 10 Mg PO PRN PRN Clonazepam 1 Mg Tablet 1 Mg PO Vitals/I & O Vital Sign - Last 24 Hours 01/17/17 01/17/17 01/17/17 01/17/17 14:36 19:00 20:00 23:00 Temp 98.8 98.2 98.3 98.8 98.2 98.3 Pulse 83 90 97 Resp 17 B/P 115/69 144/80 148/84 Pulse Ox 92 92 93 O2 Delivery Room Air Room Air Room Air Room Air 01/18/17 01/18/17 01/18/17 01/18/17 03:00 03:11 07:36 08:15 Temp 98.0 98.4 98.0 98.4 Pulse 89 82 Resp 18 18 B/P 123/84 137/88 Pulse Ox 95 92 O2 Delivery Room Air Room Air Room Air Room Air 01/18/17 01/18/17 01/18/17 01/18/17 08:46 08:47 08:47 09:51 Pulse 82 82 B/P 137/88 137/88 O2 Delivery Room Air Room Air 01/18/17 10:33 Temp 98.1 98.1 Pulse 76 Resp 18 B/P 123/77 Pulse Ox 93 O2 Delivery Room Air Intake and Output 01/17/17 01/17/17 01/18/17 15:00 23:00 07:00 Intake Total 700 ml Output Total 600 ml 700 ml 1150 ml Balance -600 ml -700 ml -450 ml MAYE YEUNG MD Jan 18, 2017 12:59
[2017-01-18] MEDS: POLYETHYLENE GLYCOL 3350 17 GM PACKET. PO PRN (13:28)
--- NOTE | 2017-01-18 14:31 | ACF ---
Admission Forms Criteria NEUROLOGY GRG Clinical Indications for Admission to Inpatient Care (Place ' X' for any and all applicable criteria): Hospital admission is needed for appropriate care of the patient because of 1 or more of the following: [ ]I. Encephalitis [ ]II. Severe LAN ANALYST infections indicated by 1 or more of the following(1)(2)(3) : [ ]a) Intracranial abscess [ ]b) Spinal abscess or myelitis [ ]c) Tuberculous or other nonbacterial, nonviral LAN ANALYST infection(8) [ ]III. Vasculitis and 1 or more of the following(14)(15): []a) Altered mental status that is severe or persistent or other acute neurologic change []b) Psychosis []c) Seizure [ ]IV. Status epilepticus or repetitive seizures not controlled with emergent treatment [A] (7)(8) [ ]V. Altered mental status that is severe or persistent [ ]. Transient alteration in consciousness with high-risk etiology; examples include (12)(13): [ ]a) Cardiovascular source [ ]b) Cataplexy [ ]VII. Cerebral aneurysm requiring ANY ONE of the following(14): [ ]a) IV antihypertensives or vasoactive agents [ ]b) Sedation and analgesia for suspected leak [ ]c) Need for external ventricular drainage and cerebral perfusion pressure monitoring [ ]d) Emergent evaluation to determine need for surgical clipping or endovascular coiling by interventional radiology. If surgery is required ( Also use Craniotomy, Supratentorial, for Surgery of Bleeding Intracranial Aneurysm (for bleeding aneurysm) or Craniotomy, Supratentorial (for nonbleeding aneurysm) as appropriate. [X]VIII. New-onset severe neurologic symptom requiring inpatient care indicated by ANY ONE of the following: [ ]a) Aphasia(15) [ ]b) Weakness (grade 3 or less) [ ]c) Paralysis (eg, hemiplegia) [ ]d) Spasticity(16) [ ]e) Dystonia [ ]e) Ataxia(17) [ ]f) Amnesia(18) [ ]g) Involuntary movements(19) [ ]h) Vertigo [ ] Visual loss [X]i) Other severe neurologic finding (eg, papilledema, mass effect on imaging, myoclonus not treatable at alternative level of care (eg, observation care) [ ]IX. Guillain-Olmsted syndrome(20) [ ]X. Myasthenia gravis crisis or inpatient monitoring need as indicated by 1 or more of the following(21): [ ]a) Intensive treatment (eg, course of plasmapheresis) with inadequate outpatient situation to monitor patients status [ ]b) Inadequate airway protection [ ]c) Respiratory insufficiency requiring intubation or inpatient. monitoring [ ]d) Progressive dysphagia with failure to thrive [ ]XI. Multiple sclerosis or other acute demyelinating disease requiring inpatient care as indicated by 1 or more of the following (22)(23): [ ]a) Acute severe deterioration requiring inpatient treatment (eg, IV steroids, plasmapheresis, close observation) [ ]b) Acute complication requiring inpatient care (eg, sepsis, severe decubitus, aspiration) [ ]XII.Parkinson disease requiring inpatient care (Also use Optimal Recovery Care Criteria or General Recovery Criteria as appropriate) indicated by 1 or more of the following(25): [ ]a) Infection (eg, aspiration pneumonia) not treatable at alternative level of care [ ]b Dehydration that is severe or persistent [ ]c) Life-threatening agitation or psychotic behavior not treatable on emergency, observation care, or alternative level (eg, residential) basis [ ]d) Severe medication withdrawal effects (eg, freezing, neuroleptic malignant syndrome) not responsive to emergency and observation care treatment ( as appropriate) [ ]e) Other severe manifestation not treatable at alternative level of care [ ]XII. Amyotrophic lateral sclerosis with inpatient care needs as indicated by ANY ONE of the following(26): [ ]a) Acute complications (eg, aspiration pneumonia, sepsis ) requiring inpatient care ( see other optimal Recovery Guideline as appropriate) [ ]b) Dehydration that is severe persistent AND artificial support desired [ ]c) Inadequate airway protection AND artificial support desired [ ]d) Severe ventilatory insufficiency AND artificial support desired [ ]XIII. Myasthenia gravis crisis or inpatient monitoring need as indicated by 1 or more of the following(21): [] a) Inadequate airway protection []b) Respiratory insufficiency requiring intubation or inpatient monitoring []c) Progressive dysphagia with failure to thrive []d) Intensive treatment (e.g., course of plasmapheresis) with inadequate outpatient situation to monitor patients status [ ]XIV. Multiple sclerosis or other acute demyelinating disease requiring inpatient care indicated by 1 or more of the following[C](36)(43)(44)(45)(46): []a) Acute severe deterioration requiring inpatient treatment (eg, IV steroids, plasmapheresis, close observation) []b) Acute complication requiring inpatient care (eg, sepsis, severe decubitus, aspiration) [ ]XV. Intracranial hypertension (e.g., pseudotumor cerebri) requiring inpatient care (e.g., acute visual loss, inadequate oral intake) (47)(48)(49) [ ]XVI. Parkinson disease requiring inpatient care (Also use Optimal Recovery Care Criteria or General Recovery Criteria as appropriate) indicated by 1 or more of the following(25): [] a) Infection (e.g., aspiration pneumonia) not treatable at alternative level of care []b) Volume depletion not responsive to emergency and observation care treatment (as appropriate) []c) Life-threatening agitation or psychotic behavior not treatable on emergency, observation care, or alternative level (e.g., residential) basis []d) Severe medication withdrawal effects (e.g., freezing, neuroleptic malignant syndrome) not responsive to emergency and observation care treatment (as appropriate) []e) Other severe manifestation not treatable at alternative level of care [ ]XVII. Amyotrophic lateral sclerosis with inpatient care needs as indicated by1 or more of the following(42): []a) Acute complications (eg, aspiration pneumonia, sepsis) requiring inpatient care (see other Optimal Recovery Guideline or General Recovery Guideline as appropriate) []b) Dehydration that is severe or persistent AND artificial support desired []c) Inadequate airway protection AND artificial support desired []d) Severe ventilatory insufficiency AND artificial support desired [ ]XVIII. Severe myopathy, neuropathy, or other neuromuscular disease indicated by 1 or more of the following(42)(52)(53)(54): []a ) New-onset severe diffuse weakness (eg, strength 3/5 or less) []b) Severe dysphagia []c) Dyspnea at rest or with minimal exertion (new) []d) Inadequate airway protection []e) Inadequate ventilation indicated by 1 or more of the following : i) Partial pressure of carbon dioxide greater than 44 mm Hg ( 5.9 kPa) (new) ii) Reduced peak expiratory flow rate (new) iii) Vital capacity less than 50% of predicted (less than 15 mL/kg) iv) Peak inspiratory force less negative than -30 cm H2O (- 2942 Pa) [ ]XVII.Complications of congenital or degenerative disease (eg, infection, seizures, dehydration, injury) not responsive to emergency and observation care treatment (as appropriate ) [C](16)(29)(30) [ ]XVIII.Suspected or confirmed nerve or muscle toxic injury, including ANY ONE of the following: [ ]a) Rhabdomyolysis(31) i) Acute renal failure ii) Dehydration that is severe or persistent iii) Altered mental status that is severe or persistent iv) Electrolyte abnormality that remains after emergency or observation level care ( as appropriate) [ ]b) Botulism(32) [ ]c) Other severe toxin-induced sign or symptom [ ]XIX. Neurologic trauma requiring inpatient treatment (medical) indicated by ANY ONE of the following(33)(34): [ ]a) Vital signs or neurologic signs more frequently than every 4 hours [ ]b) Hyperosmolar therapy [ ]c) Respiratory monitoring [ ]d) Intracranial pressure monitoring and treatment [ ]e) Stabilization and immobilization device placement (eg, braces, body jacket) [ ]f) Intubation & mechanical ventilation for airway protection or therapeutic hyperventilation [ ]g) Other treatment or monitoring needed that requires inpatient level of care [ ]XX.Complications of neurologic devices (eg, ventricular shunt, neurostimulator) requiring 1 or more of the following(35)(36): [ ]a) IV antibiotics with monitoring while awaiting culture results [ ]b) Monitoring for hydrocephalus [ ]XXI. Neurology condition symptom, or finding for which emergency and observation care have failed or are not considered appropriate. See General Criteria: Observation Care ISC, General Admission Criteria GRG, or Pediatric General Admission Criteria GRG guideline as appropriate. The original [facility] [employer] content created by [email or web address] has been revised. The portions of the content which have been revised are identified through the use of italic text or in bold, and [facility] has neither reviewed nor approved the modified material. All other unmodified content is copyright [facility] Please see references footnoted in the original [facility] edition 2016 Admission Criteria Met?: Yes FABIAN DURHAM Jan 18, 2017 14:31
[2017-01-18 15:14] VITALS: BP 134/77
--- NOTE | 2017-01-18 16:20 | PDOC ---
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 Plan Low dose prednisone for Betancourt's palsy, 40 mg daily for today, 20 mg 01/18, 10 mg , then stop Rehabilitation modalities I discussed reducing psychiatric medications again and after discussing risks, benefits, alternatives, the patient is willing to decrease the Latuda dose. Daily aspirin I do not think she is capable returning straight home and the patient would prefer to go to the healthcare [facility]. I put in an order to case management. Follow-up with me in 1 month. Subjective feels better Objective Vital Signs Date Time Temp Pulse Resp B/P Pulse Ox O2 Delivery O2 Flow Rate FiO2 01/18/17 15:14 98.4 107 18 134/77 93 Room Air 98.4 Intake and Output 01/18/17 07:00 Intake Total 700 ml Output Total 2450 ml Balance -1750 ml Intake Oral 700 ml Output Urine Total 2450 ml PHYSICAL EXAM Alert. Oriented to time, place and person. PERRL. EOMI. CN: Peripheral left facial weakness. Much more facial expression. Muscle tone: Slight cogwheeling, mild rest tremor Muscle strength: 4/5 DTR: 2+ Plantar reflex: Flexor Gait: not examined in bed. Sensory exam: no abnormal findings. No cerebellar signs elicited. Review of Relevant I have reviewed the following items brandie (where applicable) has been applied. Labs Laboratory Tests Test 01/17/17 04:36 01/18/17 04:34 White Blood Count 7.8x10^3/uL (4.0-11.0) Red Blood Count 4.06x10^6/uL (3.50-5.40) Hemoglobin 11.6g/dL (12.0-15.5) Hematocrit 34.1% (36.0-47.0) Mean Corpuscular Volume 84fL (79-100) Mean Corpuscular Hemoglobin 29pg (25-35) Mean Corpuscular Hemoglobin Concent 34g/dL (31-37) Red Cell Distribution Width 15.0% (11.5-14.5) Platelet Count 250x10^3/uL (140-400) Neutrophils (%) (Auto) 57% (31-73) Lymphocytes (%) (Auto) 35% (24-48) Monocytes (%) (Auto) 8% (0-9) Eosinophils (%) (Auto) 0% (0-3) Basophils (%) (Auto) 0% (0-3) Neutrophils # (Auto) 4.4x10^3uL (1.8-7.7) Lymphocytes # (Auto) 2.7x10^3/uL (1.0-4.8) Monocytes # (Auto) 0.6x10^3/uL (0.0-1.1) Eosinophils # (Auto) 0.0x10^3/uL (0.0-0.7) Basophils # (Auto) 0.0x10^3/uL (0.0-0.2) Sodium Level 138mmol/L (136-145) 139mmol/L (136-145) Potassium Level 3.4mmol/L (3.5-5.1) 3.9mmol/L (3.5-5.1) Chloride Level 102mmol/L (98-107) 102mmol/L (98-107) Carbon Dioxide Level 31mmol/L (21-32) 32mmol/L (21-32) Anion Gap 5 (6-14) 5 (6-14) Blood Urea Nitrogen 6mg/dL (7-20) 8mg/dL (7-20) Creatinine 0.6mg/dL (0.6-1.0) 0.6mg/dL (0.6-1.0) Estimated GFR (Cockcroft-Gault) 100.0 100.0 Glucose Level 102mg/dL (70-99) 91mg/dL (70-99) Calcium Level 8.8mg/dL (8.5-10.1) 9.1mg/dL (8.5-10.1) Laboratory Tests Test 01/18/17 04:34 Sodium Level 139mmol/L (136-145) Potassium Level 3.9mmol/L (3.5-5.1) Chloride Level 102mmol/L (98-107) Carbon Dioxide Level 32mmol/L (21-32) Anion Gap 5 (6-14) Blood Urea Nitrogen 8mg/dL (7-20) Creatinine 0.6mg/dL (0.6-1.0) Estimated GFR (Cockcroft-Gault) 100.0 Glucose Level 91mg/dL (70-99) Calcium Level 9.1mg/dL (8.5-10.1) Medications Current Medications Aspirin (Ecotrin) 81 mg DAILYWBKFT PO Last administered on 01/18/17 08:42; Start 01/16/17 at 08:00 Prednisone (Prednisone) 40 mg DAILY PO Last administered on 01/17/17 07:44; Start 01/15/17 at 16:15; Stop 01/17/17 at 12:50; Status DC Ondansetron HCl (Zofran) 4 mg PRN Q8HRS PRN IV NAUSEA/VOMITING; Start 01/15/17 at 16:15; Stop 01/15/17 at 16:15; Status DC Morphine Sulfate 2 mg PRN Q2HR PRN IV PAIN Last administered on 01/16/17 06:03 ; Start 01/15/17 at 16:15; Stop 01/16/17 at 16:14; Status DC Ondansetron HCl (Zofran) 4 mg PRN Q6HRS PRN IV NAUSEA/VOMITING Last administered on 01/16/17 22:07; Start 01/15/17 at 16:12 Acetaminophen (Tylenol) 650 mg PRN Q4HRS PRN PO headache; Start 01/15/17 at 16: 15 Amlodipine Besylate (Norvasc) 10 mg DAILY PO Last administered on 01/18/17 08: 47; Start 01/15/17 at 17:30 Atorvastatin Calcium (Lipitor) 40 mg QHS PO Last administered on 01/17/17 21:09 ; Start 01/15/17 at 21:00 Clonazepam (Klonopin) 1 mg QHS PO ; Start 01/15/17 at 21:00; Stop 01/15/17 at 21: 00; Status DC Docusate Sodium (Colace) 100 mg DAILY PO Last administered on 01/18/17 08:43; Start 01/16/17 at 09:00 Hydrochlorothiazide (Microzide) 25 mg DAILY PO Last administered on 01/16/17 08 :46; Start 01/15/17 at 17:30; Stop 01/16/17 at 11:11; Status DC Acetaminophen/ Hydrocodone Bitart (Lortab 5/325) 1 tab PRN Q6HRS PRN PO PAIN Last administered on 01/18/17 14:58; Start 01/15/17 at 16:15 Potassium Chloride (Klor-Con) 20 meq DAILY PO Last administered on 01/18/17 08: 42; Start 01/16/17 at 09:00 Non-Formulary Medication 70 mg WEEKLY PO ; Start 01/22/17 at 09:00; Status UNV Bupropion HCl (Wellbutrin Xl) 300 mg DAILY PO Last administered on 01/18/17 08: 42; Start 01/15/17 at 17:30 Vitamin D (Vitamin D3) 5,000 unit WEEKLY PO ; Start 01/22/17 at 09:00 Ibuprofen (Motrin) 600 mg PRN Q6HRS PRN PO PAIN; Start 01/15/17 at 16:45; Stop 01/16/17 at 11:11; Status DC Losartan Potassium (Cozaar) 100 mg DAILY PO Last administered on 01/18/17 08:47 ; Start 01/15/17 at 17:30 Lurasidone HCl (Latuda) 120 mg DAILYWBKFT PO ; Start 01/16/17 at 08:00; Stop 01/16 at 08:00; Status DC Non-Formulary Medication 1 each HS PO ; Start 01/15/17 at 21:00; Status UNV Naproxen (Naprosyn) 375 mg PRN BID PRN PO PAIN Last administered on 01/17/17 07 :45; Start 01/15/17 at 16:45 Sumatriptan Succinate (Imitrex) 100 mg PRN Q2HR PRN PO MIGRAINE HEADACHE Last administered on 01/17/17 17:12; Start 01/15/17 at 16:45 Clonazepam (Klonopin) 1 mg PRN QHS PRN PO nerves Last administered on 01/17/17 23:01; Start 01/15/17 at 21:00 Potassium Chloride 20 meq 20 meq 1X ONCE PO Last administered on 01/15/17 18: 16; Start 01/15/17 at 18:30; Stop 01/15/17 at 18:31; Status DC Potassium Chloride/Sodium Chloride 1,000 ml @ 75 mls/hr 1X ONCE IV Last administered on 01/15/17 20:24; Start 01/15/17 at 18:15; Stop 01/16/17 at 07:34; Status DC Potassium Chloride/Sodium Chloride (KCl 20 Meq-NS 1,000 ml Iv Soln) 1,000 ml @ 75 mls/hr 1X ONCE IV Last administered on 01/16/17 06:03; Start 01/16/17 at 00: 00; Stop 01/16/17 at 13:19; Status DC Lurasidone HCl 120 mg 120 mg QHS PO Last administered on 01/17/17 21:09; Start 01/15/17 at 21:30; Stop 01/18/17 at 16:18; Status DC Sodium Chloride (Iv Sodium Chloride 0.9% 1000ml Bag) 1,000 ml @ 75 mls/hr 1X ONCE IV Last administered on 01/16/17 22:04; Start 01/16/17 at 11:30; Stop at 00:49; Status DC Zolpidem Tartrate (Ambien) 5 mg PRN QHS PRN PO INSOMNIA Last administered on 21:09; Start 01/16/17 at 19:15 Potassium Chloride (Klor-Con) 40 meq 1X ONCE PO Last administered on 01/17/17 11:35; Start 01/17/17 at 10:30; Stop 01/17/17 at 10:33; Status DC Docusate Sodium (Colace) 100 mg PRN DAILY PRN PO CONSTIPATION; Start 01/17/17 at 11:45 Prednisone (Prednisone) 20 mg DAILY PO Last administered on 01/18/17 08:43; Start 01/18/17 at 09:00; Stop 01/19/17 at 09:00 Polyethylene Glycol (miraLAX PACKET) 17 gm PRN DAILY PRN PO CONSTIPATION Last administered on 01/18/17 13:28; Start 01/18/17 at 11:45 Active Scripts Active Naproxen 375 Mg Tablet 375 Mg PO BID PRN Reported Stool Softener (Docusate Sodium) 100 Mg Capsule 100 Mg PO DAILY Melatonin 5 Mg Tablet (Melatonin/Pyridoxine Hcl (B6)) 1 Each Tablet 1 Each PO HS Latuda (Lurasidone Hcl) 120 Mg Tablet 120 Mg PO DAILYWSUP Bupropion Xl (Bupropion Hcl) 300 Mg Tab.er.24h 300 Mg PO DAILY Alendronate Sodium 70 Mg Tablet 70 Mg PO WEEKLY Ibuprofen 600 Mg Tablet 600 Mg PO Q6H PRN Hydrocodone-Apap 5-325 (Hydrocodone Bit/Acetaminophen) 1 Each Tablet 1 Tab PO PRN Q6HRS PRN Vitamin D-3 (Cholecalciferol (Vitamin D3)) 2,000 Unit Tablet 5,000 Unit PO WEEKLY Losartan Potassium 100 Mg Tablet 100 Mg PO DAILY Amlodipine Besylate 10 Mg Tablet 10 Mg PO DAILY Atorvastatin Calcium 40 Mg Tablet 40 Mg PO DAILY Hydrochlorothiazide Capsule (Hydrochlorothiazide) 12.5 Mg Capsule 25 Mg PO DAILY Potassium Chloride 20 Meq Tab.er.prt 20 Meq PO DAILY Maxalt (Rizatriptan Benzoate) 10 Mg Tablet 10 Mg PO PRN PRN Clonazepam 1 Mg Tablet 1 Mg PO Vitals/I & O Vital Sign - Last 24 Hours 01/17/17 01/17/17 01/17/17 01/18/17 19:00 20:00 23:00 03:00 Temp 98.2 98.3 98.0 98.2 98.3 98.0 Pulse 90 97 89 Resp 18 B/P 144/80 148/84 123/84 Pulse Ox 92 93 95 O2 Delivery Room Air Room Air Room Air Room Air 01/18/17 01/18/17 01/18/17 01/18/17 03:11 07:36 08:15 08:46 Temp 98.4 98.4 Pulse 82 Resp 18 B/P 137/88 Pulse Ox 92 O2 Delivery Room Air Room Air Room Air Room Air 01/18/17 01/18/17 01/18/17 01/18/17 08:47 08:47 09:51 10:33 Temp 98.1 98.1 Pulse 82 82 76 Resp 18 B/P 137/88 137/88 123/77 Pulse Ox 93 O2 Delivery Room Air Room Air 01/18/17 01/18/17 14:58 15:14 Temp 98.4 98.4 Pulse 107 Resp 18 B/P 134/77 Pulse Ox 93 O2 Delivery Room Air Room Air Intake and Output 01/17/17 01/17/17 01/18/17 15:00 23:00 07:00 Intake Total 700 ml Output Total 600 ml 700 ml 1150 ml Balance -600 ml -700 ml -450 ml CORBY PETERSON MD Jan 18, 2017 16:20
[2017-01-18] MEDS: LURASIDONE 40 MG TABLET. PO SCH (17:21)
[2017-01-18] MEDS: ONDANSETRON PF 4 MG/2 ML VIAL. IV PRN (18:42)
[2017-01-18 19:00] VITALS: BP 124/70
[2017-01-18] MEDS: CLONAZEPAM 1 MG TABLET. PO PRN (21:46)
[2017-01-18] MEDS: ATORVASTATIN CALCIUM 40 MG TABLET. PO SCH (21:46)
[2017-01-18] MEDS: ZOLPIDEM 5 MG TABLET. PO PRN (21:47)
[2017-01-18 23:00] VITALS: BP 159/95
[2017-01-19] MEDS: ACETAMINOPHEN 325 MG TABLET. PO PRN ×2 (01:54→16:36)
[2017-01-19 03:00] VITALS: BP 140/85
[2017-01-19] MEDS: HYDROCODONE/APAP 5/325MG TABLET. PO PRN ×3 (03:58→20:21)
[2017-01-19 07:05] VITALS: BP 142/76
[2017-01-19] MEDS: POLYETHYLENE GLYCOL 3350 17 GM PACKET. PO PRN (09:29)
[2017-01-19] MEDS: AMLODIPINE BESYLATE 10 MG TABLET. PO SCH (09:30)
[2017-01-19] MEDS: PREDNISONE 20 MG TABLET PO SCH (09:30)
[2017-01-19] MEDS: DOCUSATE SODIUM 100 MG CAPSULE. PO SCH (09:31)
[2017-01-19] MEDS: POTASSIUM CHLORIDE 20 MEQ TABLET.ER. PO SCH (09:31)
[2017-01-19] MEDS: LOSARTAN POTASSIUM 50 MG TABLET. PO SCH (09:31)
[2017-01-19] MEDS: buPROPion XL 150 MG TAB.ER.24H. PO SCH (09:31)
[2017-01-19] MEDS: ASPIRIN ENTERIC COATED 81 MG TABLET.DR. PO SCH (09:32)
[2017-01-19] MEDS: NAPROXEN 250 MG TABLET PO PRN (09:39)
[2017-01-19 10:45] VITALS: BP 138/81
--- NOTE | 2017-01-19 14:35 | PDOC ---
PROGRESS NOTES Chief Complaint Chief Complaint 1. Left facial droop diff include [place]' palsy 2. HTN, controlled 3,. Hx L2 kyphoplasty 4. Hyperlipidemia 5. Recent . L2 traumatic compressive fx, closed s/p L@ kyphoplasty 6. Bipolar/ schizophrenia 7. gastroenteritis 8. hypokalemia Plan SNU placement pending, MRI brain neg Start pred, 20mg today then 10mg on Thursday, then dc. PT/OT dc hctz. on losartan, amlodipine History of Present Illness History of Present Illness no diarrhea no facial droop no chest pain Vitals Vitals Vital Signs Date Time Temp Pulse Resp B/P Pulse Ox O2 Delivery O2 Flow Rate FiO2 01/19/17 11:55 92 Room Air 01/19/17 10:45 97.7 78 18 138/81 97.7 Physical Exam General: Alert, Oriented X3, No acute distress, Other (physically weak ) Heart: Regular rate, Normal S1 Lungs: Clear Abdomen: Normal bowel sounds, Soft, No tenderness, No hepatosplenomegaly, No masses Extremities: No edema, Normal pulses, No tenderness/swelling Assessment and Plan Assessmemt and Plan Problems Medical Problems: (1) Cellulitis Status: Acute (2) Facial droop Status: Acute (3) Weakness Status: Acute Problems: Comment Review of Relevant I have reviewed the following items brandie (where applicable) has been applied. Labs Laboratory Tests Test 01/18/17 04:34 Sodium Level 139mmol/L (136-145) Potassium Level 3.9mmol/L (3.5-5.1) Chloride Level 102mmol/L (98-107) Carbon Dioxide Level 32mmol/L (21-32) Anion Gap 5 (6-14) Blood Urea Nitrogen 8mg/dL (7-20) Creatinine 0.6mg/dL (0.6-1.0) Estimated GFR (Cockcroft-Gault) 100.0 Glucose Level 91mg/dL (70-99) Calcium Level 9.1mg/dL (8.5-10.1) Medications Current Medications Aspirin (Ecotrin) 81 mg DAILYWBKFT PO Last administered on 01/19/17 09:32; Start 01/16/17 at 08:00 Prednisone (Prednisone) 40 mg DAILY PO Last administered on 01/17/17 07:44; Start 01/15/17 at 16:15; Stop 01/17/17 at 12:50; Status DC Ondansetron HCl (Zofran) 4 mg PRN Q8HRS PRN IV NAUSEA/VOMITING; Start 01/15/17 at 16:15; Stop 01/15/17 at 16:15; Status DC Morphine Sulfate 2 mg PRN Q2HR PRN IV PAIN Last administered on 01/16/17 06:03 ; Start 01/15/17 at 16:15; Stop 01/16/17 at 16:14; Status DC Ondansetron HCl (Zofran) 4 mg PRN Q6HRS PRN IV NAUSEA/VOMITING Last administered on 01/18/17 18:42; Start 01/15/17 at 16:12 Acetaminophen (Tylenol) 650 mg PRN Q4HRS PRN PO headache Last administered on 01:54; Start 01/15/17 at 16:15 Amlodipine Besylate (Norvasc) 10 mg DAILY PO Last administered on 01/19/17 09: 30; Start 01/15/17 at 17:30 Atorvastatin Calcium (Lipitor) 40 mg QHS PO Last administered on 01/18/17 21:46 ; Start 01/15/17 at 21:00 Clonazepam (Klonopin) 1 mg QHS PO ; Start 01/15/17 at 21:00; Stop 01/15/17 at 21: 00; Status DC Docusate Sodium (Colace) 100 mg DAILY PO Last administered on 01/19/17 09:31; Start 01/16/17 at 09:00 Hydrochlorothiazide (Microzide) 25 mg DAILY PO Last administered on 01/16/17 08 :46; Start 01/15/17 at 17:30; Stop 01/16/17 at 11:11; Status DC Acetaminophen/ Hydrocodone Bitart (Lortab 5/325) 1 tab PRN Q6HRS PRN PO PAIN Last administered on 01/19/17 11:55; Start 01/15/17 at 16:15 Potassium Chloride (Klor-Con) 20 meq DAILY PO Last administered on 01/19/17 09 :31; Start 01/16/17 at 09:00 Non-Formulary Medication 70 mg WEEKLY PO ; Start 01/22/17 at 09:00; Status UNV Bupropion HCl (Wellbutrin Xl) 300 mg DAILY PO Last administered on 01/19/17 09 :31; Start 01/15/17 at 17:30 Vitamin D (Vitamin D3) 5,000 unit WEEKLY PO ; Start 01/22/17 at 09:00 Ibuprofen (Motrin) 600 mg PRN Q6HRS PRN PO PAIN; Start 01/15/17 at 16:45; Stop 01/16/17 at 11:11; Status DC Losartan Potassium (Cozaar) 100 mg DAILY PO Last administered on 01/19/17 09: 31; Start 01/15/17 at 17:30 Lurasidone HCl (Latuda) 120 mg DAILYWBKFT PO ; Start 01/16/17 at 08:00; Stop 01/16 at 08:00; Status DC Non-Formulary Medication 1 each HS PO ; Start 01/15/17 at 21:00; Status UNV Naproxen (Naprosyn) 375 mg PRN BID PRN PO PAIN Last administered on 01/19/17 09:39; Start 01/15/17 at 16:45 Sumatriptan Succinate (Imitrex) 100 mg PRN Q2HR PRN PO MIGRAINE HEADACHE Last administered on 01/17/17 17:12; Start 01/15/17 at 16:45 Clonazepam (Klonopin) 1 mg PRN QHS PRN PO nerves Last administered on 01/18/17 21:46; Start 01/15/17 at 21:00 Potassium Chloride 20 meq 20 meq 1X ONCE PO Last administered on 01/15/17 18: 16; Start 01/15/17 at 18:30; Stop 01/15/17 at 18:31; Status DC Potassium Chloride/Sodium Chloride 1,000 ml @ 75 mls/hr 1X ONCE IV Last administered on 01/15/17 20:24; Start 01/15/17 at 18:15; Stop 01/16/17 at 07:34; Status DC Potassium Chloride/Sodium Chloride (KCl 20 Meq-NS 1,000 ml Iv Soln) 1,000 ml @ 75 mls/hr 1X ONCE IV Last administered on 01/16/17 06:03; Start 01/16/17 at 00: 00; Stop 01/16/17 at 13:19; Status DC Lurasidone HCl 120 mg 120 mg QHS PO Last administered on 01/17/17 21:09; Start 01/15/17 at 21:30; Stop 01/18/17 at 16:18; Status DC Sodium Chloride (Iv Sodium Chloride 0.9% 1000ml Bag) 1,000 ml @ 75 mls/hr 1X ONCE IV Last administered on 01/16/17 22:04; Start 01/16/17 at 11:30; Stop at 00:49; Status DC Zolpidem Tartrate (Ambien) 5 mg PRN QHS PRN PO INSOMNIA Last administered on 21:47; Start 01/16/17 at 19:15 Potassium Chloride (Klor-Con) 40 meq 1X ONCE PO Last administered on 01/17/17 11:35; Start 01/17/17 at 10:30; Stop 01/17/17 at 10:33; Status DC Docusate Sodium (Colace) 100 mg PRN DAILY PRN PO CONSTIPATION; Start 01/17/17 at 11:45 Prednisone (Prednisone) 20 mg DAILY PO Last administered on 01/19/17 09:30; Start 01/18/17 at 09:00; Stop 01/19/17 at 09:00; Status DC Polyethylene Glycol (miraLAX PACKET) 17 gm PRN DAILY PRN PO CONSTIPATION Last administered on 01/19/17 09:29; Start 01/18/17 at 11:45 Lurasidone HCl (Latuda) 60 mg DAILYWSUP PO Last administered on 01/18/17 17:21 ; Start 01/18/17 at 17:00 Active Scripts Active Naproxen 375 Mg Tablet 375 Mg PO BID PRN Reported Stool Softener (Docusate Sodium) 100 Mg Capsule 100 Mg PO DAILY Melatonin 5 Mg Tablet (Melatonin/Pyridoxine Hcl (B6)) 1 Each Tablet 1 Each PO HS Latuda (Lurasidone Hcl) 120 Mg Tablet 120 Mg PO DAILYWSUP Bupropion Xl (Bupropion Hcl) 300 Mg Tab.er.24h 300 Mg PO DAILY Alendronate Sodium 70 Mg Tablet 70 Mg PO WEEKLY Ibuprofen 600 Mg Tablet 600 Mg PO Q6H PRN Hydrocodone-Apap 5-325 (Hydrocodone Bit/Acetaminophen) 1 Each Tablet 1 Tab PO PRN Q6HRS PRN Vitamin D-3 (Cholecalciferol (Vitamin D3)) 2,000 Unit Tablet 5,000 Unit PO WEEKLY Losartan Potassium 100 Mg Tablet 100 Mg PO DAILY Amlodipine Besylate 10 Mg Tablet 10 Mg PO DAILY Atorvastatin Calcium 40 Mg Tablet 40 Mg PO DAILY Hydrochlorothiazide Capsule (Hydrochlorothiazide) 12.5 Mg Capsule 25 Mg PO DAILY Potassium Chloride 20 Meq Tab.er.prt 20 Meq PO DAILY Maxalt (Rizatriptan Benzoate) 10 Mg Tablet 10 Mg PO PRN PRN Clonazepam 1 Mg Tablet 1 Mg PO Vitals/I & O Vital Sign - Last 24 Hours 01/18/17 01/18/17 01/18/17 01/18/17 14:58 15:14 16:00 19:00 Temp 98.4 98.3 98.4 98.3 Pulse 107 88 Resp B/P 134/77 124/70 Pulse Ox 93 94 O2 Delivery Room Air Room Air Room Air Room Air 01/18/17 01/18/17 01/18/17 01/19/17 20:00 21:46 23:00 03:00 Temp 98.2 98.1 98.2 98.1 Pulse 92 80 Resp 16 18 18 B/P 159/95 140/85 Pulse Ox 95 93 O2 Delivery Room Air Room Air Room Air Room Air 01/19/17 01/19/17 01/19/17 01/19/17 03:58 07:05 08:00 09:30 Temp 97.9 97.9 Pulse 78 78 Resp 18 B/P 142/76 142/76 Pulse Ox 93 91 O2 Delivery Room Air Room Air Room Air 01/19/17 01/19/17 01/19/17 09:31 10:45 11:55 Temp 97.7 97.7 Pulse 78 78 Resp 18 B/P 142/76 138/81 Pulse Ox 92 92 O2 Delivery Room Air Room Air Intake and Output 01/18/17 01/18/17 01/19/17 14:59 22:59 06:59 Intake Total 600 ml 450 ml Output Total 650 ml 1100 ml Balance -50 ml -650 ml FRANK SANTANA MD Jan 19, 2017 14:35
[2017-01-19 14:45] VITALS: BP 112/68
[2017-01-19] MEDS: ONDANSETRON PF 4 MG/2 ML VIAL. IV PRN (17:48)
[2017-01-19] MEDS: LURASIDONE 40 MG TABLET. PO SCH (17:49)
[2017-01-19] MEDS ORDERED: ONDANSETRON ODT 4 MG TAB.RAPDIS. PO PRN (18:00)
--- NOTE | 2017-01-19 19:06 | PDOC ---
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 MRI negative for stroke. No tumor suggested. Drug-induced Parkinson's Chronic back pain and debility including requirement to use a walker to ambulate. RECOMMENDATIONS/PLAN: Low dose prednisone for Bet[place]'s palsy, 40 mg daily with titration down, 20 mg 01/18 , 10 mg 01/19, then stop Rehabilitation modalities Continue Aspirin daily. FU with PCP. FU with Neurology as needed. PAST MEDICAL AND SURGICAL HISTORY: Please see H&P ALLERGY: Reviewed. MEDICATIONS: Refer to MAR REVIEW OF SYSTEMS: Refer to PMX and PSH. PHYSICAL EXAMINATION: General appearance in no acute distress. HEENT: Normocephalic and nontraumatic. Eyes, nose, ears, and throat are unremarkable. Hearing decrease. Neck is supple. No lymphadenopathy. No Crepitus. Cardiovascular: S1, S2, regular rate and rhythm. Pulmonary: Clear to auscultation bilaterally. Abdomen: Bowel sounds are positive. Abdomen is soft, nontender, and nondistended. Extremities: No rash, lesions, or edema. No restriction of range of motion NEUROLOGICAL EXAMINATION: Awake. Oriented to time, place and person. PERRL. EOMI. CN: Mildly asymmetric. Muscle tone: within normal. Muscle strength: 4+ DTR: 2 Plantar reflex: Flexor response bilaterally Gait: not examined in chair. Sensory exam: no abnormal findings. No cerebellar signs elicited. F-T-N test fine. Objective Objective Vital Signs Date Time Temp Pulse Resp B/P Pulse Ox O2 Delivery O2 Flow Rate FiO2 01/19/17 15:32 93 Room Air 01/19/17 14:45 97.7 91 18 112/68 97.7 Intake and Output 01/19/17 07:00 Intake Total 1050 ml Output Total 1750 ml Balance -700 ml Intake Oral 1050 ml Output Urine Total 1750 ml # Voids 2 Vitals Signs Vitals VS - Last 72 Hours, by Label Date Time Temp Pulse Resp B/P Pulse Ox O2 Delivery O2 Flow Rate FiO2 01/19/17 15:32 93 Room Air 01/19/17 14:45 97.7 91 18 112/68 93 Room Air 97.7 01/19/17 11:55 92 Room Air 01/19/17 10:45 97.7 78 18 138/81 92 Room Air 97.7 01/19/17 09:31 78 142/76 4/10/17 09:30 78 142/76 01/19/17 08:00 Room Air 01/19/17 07:05 97.9 78 18 142/76 91 Room Air 97.9 01/19/17 03:58 93 Room Air 01/19/17 03:00 98.1 80 18 140/85 93 Room Air 98.1 01/18/17 23:00 98.2 92 18 159/95 95 Room Air 98.2 01/18/17 21:46 16 Room Air 01/18/17 20:00 Room Air 01/18/17 19:00 98.3 88 17 124/70 94 Room Air 98.3 01/18/17 15:14 98.4 107 18 134/77 93 Room Air 98.4 01/18/17 14:58 Room Air 01/18/17 10:33 98.1 76 18 123/77 93 Room Air 98.1 01/18/17 08:47 82 137/88 01/18/17 08:47 82 137/88 01/18/17 08:46 Room Air 01/18/17 08:15 Room Air 01/18/17 07:36 98.4 82 18 137/88 92 Room Air 98.4 Medication Medications Current Medications Non-Formulary Medication 70 mg WEEKLY PO ; Start 01/22/17 at 09:00; Status UNV Ondansetron HCl (Zofran Odt) 4 mg PRN Q6HRS PRN PO NAUSEA/VOMITING Last administered on 01/19/17t 18:08; Start 01/19/17 at 18:00 Vitamin D (Vitamin D3) 5,000 unit WEEKLY PO ; Start 01/22/17 at 09:00 Comment Review of Relevant I have reviewed the following items brandei (where applicable) has been applied. JASIEL VICK MD Jan 19, 2017 19:06
[2017-01-19 19:39] VITALS: BP 136/93
[2017-01-19] MEDS: ZOLPIDEM 5 MG TABLET. PO PRN (20:21)
[2017-01-19] MEDS: ATORVASTATIN CALCIUM 40 MG TABLET. PO SCH (20:21)
[2017-01-19] MEDS: CLONAZEPAM 1 MG TABLET. PO PRN (20:42)
[2017-01-19 23:09] VITALS: BP 133/94
[2017-01-20] MEDS: HYDROCODONE/APAP 5/325MG TABLET. PO PRN ×2 (02:36→09:25)
[2017-01-20 03:46] VITALS: BP 122/79
[2017-01-20 07:58] VITALS: BP 133/80
[2017-01-20] MEDS: POLYETHYLENE GLYCOL 3350 17 GM PACKET. PO PRN (09:19)
[2017-01-20] MEDS: POTASSIUM CHLORIDE 20 MEQ TABLET.ER. PO SCH (09:19)
[2017-01-20] MEDS: LOSARTAN POTASSIUM 50 MG TABLET. PO SCH (09:20)
[2017-01-20] MEDS: ASPIRIN ENTERIC COATED 81 MG TABLET.DR. PO SCH (09:20)
[2017-01-20] MEDS: DOCUSATE SODIUM 100 MG CAPSULE. PO SCH (09:20)
[2017-01-20] MEDS: buPROPion XL 150 MG TAB.ER.24H. PO SCH (09:20)
[2017-01-20] MEDS: AMLODIPINE BESYLATE 10 MG TABLET. PO SCH (09:20)
[2017-01-20 11:19] VITALS: BP 136/80
--- NOTE | 2017-01-20 15:45 | PDOC ---
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 MRI negative for stroke this time. No tumor suggested. RECOMMENDATIONS/PLAN: Low dose prednisone for Betancourt's palsy, treated. Continue Aspirin daily. Continue Statin HS. FU with PCP. FU with Neurology as needed. PAST MEDICAL AND SURGICAL HISTORY: Please see H&P ALLERGY: Reviewed. MEDICATIONS: Refer to MAR REVIEW OF SYSTEMS: Refer to PMX and PSH. PHYSICAL EXAMINATION: General appearance in no acute distress. HEENT: Normocephalic and nontraumatic. Eyes, nose, ears, and throat are unremarkable. Hearing decrease. Neck is supple. No lymphadenopathy. No Crepitus. Cardiovascular: S1, S2, regular rate and rhythm. Pulmonary: Clear to auscultation bilaterally. Abdomen: Bowel sounds are positive. Abdomen is soft, nontender, and nondistended. Extremities: No rash, lesions, or edema. No restriction of range of motion NEUROLOGICAL EXAMINATION: Awake. Oriented to time, place and person. PERRL. EOMI. CN: No acute deficits. Muscle tone: within normal. Muscle strength: 4+ DTR: 2 Plantar reflex: Flexor response bilaterally Gait: not examined in chair. Sensory exam: no abnormal findings. No acute cerebellar signs elicited. F-T-N test fine. Objective Objective Vital Signs Date Time Temp Pulse Resp B/P Pulse Ox O2 Delivery O2 Flow Rate FiO2 01/20/17 11:19 97.9 88 18 136/80 94 Room Air 97.9 Intake and Output 01/20/17 07:00 Intake Total 1440 ml Output Total 1350 ml Balance 90 ml Intake Oral 1440 ml Output Urine Total 1350 ml Vitals Signs Vitals VS - Last 72 Hours, by Label Date Time Temp Pulse Resp B/P Pulse Ox O2 Delivery O2 Flow Rate FiO2 01/20/17 11:19 97.9 88 18 136/80 94 Room Air 97.9 01/20/17 10:25 95 Room Air 01/20/17 09:25 95 Room Air 01/20/17 09:20 78 133/80 01/20/17 09:20 78 133/80 01/20/17 08:00 Room Air 01/20/17 07:58 97.6 78 18 133/80 95 Room Air 97.6 01/20/17 03:46 98.0 73 18 122/79 95 Room Air 98.0 01/20/17 02:36 Room Air 01/19/17 23:09 98.4 84 18 133/94 95 Room Air 98.4 01/19/17 20:21 Room Air 01/19/17 20:00 Room Air 01/19/17 19:39 98.0 87 18 136/93 95 Room Air 98.0 01/19/17 14:45 97.7 91 18 112/68 93 Room Air 97.7 01/19/17 11:55 92 Room Air 01/19/17 10:45 97.7 78 18 138/81 92 Room Air 97.7 01/19/17 09:31 78 142/76 01/19/17 09:30 78 142/76 01/19/17 08:00 Room Air 01/19/17 07:05 97.9 78 18 142/76 91 Room Air 97.9 Medication Medications Current Medications Non-Formulary Medication 70 mg WEEKLY PO ; Start 01/22/17 at 09:00; Status UNV Ondansetron HCl (Zofran Odt) 4 mg PRN Q6HRS PRN PO NAUSEA/VOMITING Last administered on 01/19/17t 18:08; Start 01/19/17 at 18:00; Stop 01/20/17 at 14:31 ; Status DC Vitamin D (Vitamin D3) 5,000 unit WEEKLY PO ; Start 01/22/17 at 09:00; Stop at 09:00; Status DC Comment Review of Relevant I have reviewed the following items brandie (where applicable) has been applied. JASIEL VICK MD Jan 20, 2017 15:45
[2017-01-22] MEDS ORDERED: NON FORMULARY ITEM (Alendronate Sodium 70 MG) PO SCH (09:00)
[2017-01-22] MEDS ORDERED: CHOLECALCIFEROL (VITAMIN D3) 5,000 UNIT CAPSULE PO SCH (09:00)
== END 2017-01-20 14:31 | DRG 74 ==
LOC: ER 14:47 → 6 SOUTH 16:00
PROVIDERS: ADMIT Internal Medicine; ATTEND Internal Medicine
DX: G51.0 Bell's palsy (principal); G21.19 Other drug induced secondary parkinsonism; G25.9 Extrapyramidal and movement disorder, unspecified; E87.6 Hypokalemia; K52.9 Noninfective gastroenteritis and colitis, unspecified; E78.00 Pure hypercholesterolemia, unspecified; E78.5 Hyperlipidemia, unspecified; F20.9 Schizophrenia, unspecified; F31.9 Bipolar disorder, unspecified; G89.29 Other chronic pain; I10 Essential (primary) hypertension; M81.0 Age-related osteoporosis without current pathological fracture; Z82.3 Family history of stroke; Z90.710 Acquired absence of both cervix and uterus; Z79.899 Other long term (current) drug therapy
CPT/HCPCS: 36415; 70450; 70551; 71010; 80048; 80061; 80076; 81001; 82550; 82947; 84484; 85007; 85027; 85610; 85651; 85730; 93005; G0481; J2270; J2405; J7030; J7512; Q0162; 92610; 97110; 97116; 99285-25

== ENCOUNTER 2017-02-07 19:42 | Inpatient (IN) | payer OTHER, MEDICAID ==
[~2017-02-07] VITALS: Ht 152.4 cm; Wt 60.1 kg
[2017-02-07 20:28] LABS: BASO % 1 % (0-3); EOS % 0 % (0-3); HEMATOCRIT 35.8 % (36.0-47.0); HEMOGLOBIN 11.9 g/dL (12.0-15.5); LYMPH # 1.7 x10^3/uL (1.0-4.8); LYMPH % 20 % (24-48); MEAN CORPUSCULAR HEMOGLOBIN 29 pg (25-35); MEAN CORPUSCULAR HGB CONC 33 g/dL (31-37); MEAN CORPUSCULAR VOLUME 86 fL (79-100); MONO % 6 % (0-9); NEUT % 73 % (31-73); PLATELET COUNT 227 x10^3/uL (140-400); RED BLOOD COUNT 4.15 x10^6/uL (3.50-5.40); RED CELL DISTRIBUTION WIDTH 15.2 % (11.5-14.5); WHITE BLOOD COUNT 8.3 x10^3/uL (4.0-11.0)
[2017-02-07 20:39] LABS: PROTHROMBIN TIME PATIENT 12.5 SEC (11.7-14.0)
[2017-02-07 20:53] LABS: CALCIUM 9.3 mg/dL (8.5-10.1); CREATININE 0.7 mg/dL (0.6-1.0); GFR 83.7; POTASSIUM 3.3 mmol/L (3.5-5.1)
[2017-02-07 20:58] LABS: ALBUMIN 3.2 g/dL (3.4-5.0); TOTAL BILIRUBIN 0.4 mg/dL (0.2-1.0); TOTAL PROTEIN 6.4 g/dL (6.4-8.2)
[2017-02-07] MEDS ORDERED: fentaNYL PF VIAL 100 MCG/2 ML VIAL IV PRN (21:00)
--- NOTE | 2017-02-07 21:19 | RAD ---
PROCEDURE CT study of the lumbar spine without contrast HISTORY Fall. Back pain. Recent back surgery in October 2016. TECHNIQUE Noncontrast helical CT scanning of the lumbar spine was performed. Multiplanar 2D reconstructions were generated. One or more of the following individualized dose reduction techniques were utilized for this study: 1. Automated exposure control 2. Adjustment of the mA and/or kV according to patient size 3. Use of iterative reconstruction technique COMPARISON December 12, 2016. FINDINGS Mild dextroscoliosis is seen. Again seen is moderate compression fracture of L2 which has been treated with a vertebroplasty. No new posterior protrusion of bony elements or methylmethacrylate into the spinal canal is seen. This is stable. No new compression fracture is evident. There is retrolisthesis of L2 on L3 which is stable. There is degenerative spurring of L1-2 and L2-3 and L3-4 and L5-S1 along with diffuse disc bulging which is stable. Multilevel spinal canal stenosis is unchanged from the previous study. The transverse processes are intact. No discitis or osteolytic process is seen. IMPRESSION Stable compression fracture of L2. No new compression fracture is evident. Stable study. Electronically signed by: Hilton Bahena MD (Feb 07, 2017 21:18:09)
[2017-02-07 21:44] LABS: BILIRUBIN,URINE NEGATIVE (NEG); GLUCOSE,URINE NEGATIVE (NEG); NITRITE,URINE NEGATIVE (NEG); PROTEIN,URINE NEGATIVE (NEG-TRACE); UROBILINOGEN,URINE 0.2 mg/dL (0.2 mg/dL)
[2017-02-07 21:52] LABS: BACTERIA,URINE FEW /HPF (0-FEW); SQUAMOUS EPITHELIAL CELL,UR FEW /LPF; WBC,URINE OCC /HPF (0-4)
[2017-02-07] MEDS ORDERED: ACETAMINOPHEN 325 MG TABLET. PO PRN (22:00)
[2017-02-07] MEDS ORDERED: ONDANSETRON PF 4 MG/2 ML VIAL. IV PRN (22:00)
--- NOTE | 2017-02-07 22:39 | ACF ---
Admission Forms Criteria MUSCULOSKELETAL DISEASE GRG Clinical Indications for Admission to Inpatient Care (Place 'X' for any and all applicable criteria): Hospital admission is needed for appropriate care of the patient because of 1 or more of the following: [X]I. Fracture, dislocation, or other musculoskeletal injury requiring inpatient care(medical) as indicated by 1 or more of the following(4)(5)(6)(7) [ ]a) Vertebral fracture requiring observation for instability or neurologic compromise (8) [ ]b) Compartment syndrome (proven or cannot be ruled out during observation level of care) (9) [ ]c) Limb-threatening injury [ ]d) Major injury requiring inpatient stabilization such as traction initiation or external fixation before internal fixation or closure of complex or open fracture [ ]e) Major injury requiring inpatient treatment after emergency or observation level care (as appropriate) [X]f) Severe pain requiring acute inpatient management [ ]g) Injury with suspicion of abuse or neglect (eg., child, dependent elderly) [ ]II. Newly diagnosed or suspected bone, joint, or orthopedic device infection (e.g., osteomyelitis, septic arthritis) needing 1 or more of the following(1)(2)(3) [ ]a) IV antibiotics that cannot be initiated in other than inpatient setting (e.g., patient too unstable or home infusion not available) [ ]b) Device removal or replacement [ ]c) Bone or soft tissue debridement [ ]d) Joint drainage (drain placement or repetitive aspirations) [ ]III. Severe rheumatologic disease (e.g., systemic lupus erythematosus, rheumatoid arthritis) with complications or comorbidities (Also use Optimal Recovery Care Criteria or General Recovery Criteria as appropriate on the basis of predominant condition), including 1 or more of the following( 10)(11)(12)(13) [ ]a) Severe infection (e.g., [employer] infection, sepsis) (14) [ ]b) Respiratory complications, including 1 or more of the following : [ ]i) Pleural effusion with respiratory compromise [ ]ii) Pulmonary hypertension with congestive failure [ ]iii) Respiratory failure [ ]iv) Pulmonary hemorrhage (15) [ ]c) Hematologic disease, including 1 or more of the following: [ ]i) Coagulopathy with bleeding [ ]ii) Thrombosis with hypercoagulable state [ ]iii) Thrombotic thrombocytopenic purpura [ ]d) Cerebritis with seizures, psychosis, or other severe abnormalities [ ]e) Vertebral destruction with monitoring needed for cervical myelopathy& possible respiratory compromise [ ]f) Exacerbation that requires inpatient treatment (e.g., intravenous immunosuppression) (16) [ ]g) Acute renal failure [ ]h) Cerebritis with seizures, psychosis, Altered mental status, or other neurologic abnormalities [ ]i) Pericardial effusion with tamponade [ ]j) Vertebral destruction, with monitoring needed for cervical myelopathy and possible respiratory compromise [ ]IV. Severe vasculitis with complications or comorbidities (Also use Optimal Recovery Care Criteria General Recovery Criteria as appropriate on the basis of predominant condition), including 1 or more of the following(11)(12)(17)(18)(19)(20) [ ]a) Exacerbation that requires inpatient treatment (e.g., intravenous immunosuppression) (19)(21) [ ]b) Pulmonary hemorrhage (15) [ ]c) [employer] vasculitis with seizures, psychosis, Altered mental status that is severe or persistent, or other severe abnormalities (22) [ ]d) Cerebral infarction [ ]e) Gastrointestinal ischemia [ ]f) Gangrene or threatened amputation [ ]g) Renal failure (16) [ ]h) Other significant complications of vasculitis ( eg., tissue or organ ischemia, organ dysfunction ) [ ]V. Severe myopathy as indicated by 1 or more of the following (28)(29) [ ]a) New onset of airway compromise or inability to swallow [ ]b) Respiratory deterioration with observation needed for impending respiratory failure [ ]c) Exacerbation that requires inpatient treatment (e.g., intravenous immunosuppression) [ ]. Severe crystal gout (arthropathy) indicated by 1 or more of the following (23)(24) [ ]a) Severe pain requiring acute inpatient management [ ]b) Exacerbation that requires inpatient treatment (e.g., intravenous treatment) [ ]VII.Rhabdomyolysis and 1 or more of the following (25)(26)(27) [ ]a) Acute renal failure [ ]b) Need for intravenous hydration after emergency or observation level care (as appropriate) [ ]c) Inability to maintain oral hydration [ ]d) Change in mental status [ ]e) Electrolyte abnormality that remains after emergency or observation level care (as appropriate) [ ]VIII Post amputation complication, as indicated by ANY ONE of the following [ ]a) Infection [ ]b) Dehiscence [ ]c) Myodesis failure [ ]IX. Severe pain requiring acute inpatient management due to musculoskeletal condition [ ]X. Musculoskeletal Disease and ALL of the following: [ ]a) Symptom or finding for which emergency and observation care have failed or are not considered appropriate (Use General Criteria: Observation Care as appropriate) [ ]b) Presence of ANY ONE of the following [ ]i) A General Admission Criteria [ ]ii) A Pediatric General Admission Criteria The original [facility] [employer] content created by [employer] [employer] has been revised. The portions of the content which have been revised are identified through the use of italic text or in bold, and [facility] has neither reviewed nor approved the modified material. All other unmodified content is copyright [facility] [employer]. Please see references footnoted in the original [facility] edition 2016 Admission Criteria Met?: Yes FAVIO LIVE. Feb 07, 2017 22:39
--- NOTE | 2017-02-07 23:28 | PHYS DOC ---
Past Medical History Past Medical History: Bipolar, High Cholesterol, Hypertension, Schizophrenia Past Surgical History: Hysterectomy, Tonsillectomy Additional Past Surgical Histo: bladder tuck surgery, breast reduction, back sx , Alcohol Use: None Drug Use: None Adult General Chief Complaint Chief Complaint: MECHANICAL FALL HPI HPI Patient is a 66 year old female who presents with back pain after fall. Patient states she had generalized weakness, her legs gave out when she was trying to walk using her walker. She fell into a sitting position, injuring her lower back. She was not able to get up without assistance. She reports previous history of back surgery. Denies head trauma or loss of consciousness, does not take blood thinners. She states she has been having progressive weakness over the past several weeks area denies unilateral numbness or weakness, denies headache, chest pain, shortness of breath, vomiting, diarrhea, hematochezia/ melena. Review of Systems Review of Systems Constitutional: Denies fever or chills Eyes: Denies change in visual acuity HENT: Denies nasal congestion or sore throat Respiratory: Denies cough or shortness of breath Cardiovascular: Denies chest pain or edema GI: Denies abdominal pain, nausea, vomiting, bloody stools or diarrhea : Denies dysuria or hematuria Musculoskeletal: Reports back pain & generalized weakness. Integument: Denies rash or skin lesions Neurologic: Denies headache, focal weakness or sensory changes Current Medications Current Medications Current Medications Medications (Trade) Dose Ordered Sig/[facility] Start Time Stop Time Status Last Admin Dose Admin Fentanyl Citrate (Fentanyl 2ml Vial) 50 mcg PRN Q15MIN PRN 02/07/17 21:00 02/08/17 00:00 DC 02/07/17 21:31 50 MCG Allergies Allergies Allergies Coded Allergies Type Severity Reaction Last Updated Verified No Known Drug Allergies 09/19/15 No Physical Exam Physical Exam Constitutional: Well developed, well nourished, no acute distress, non-toxic appearance. HENT: Normocephalic, atraumatic, bilateral external ears normal, oropharynx moist, nose normal. Eyes: PERRLA, EOMI, conjunctiva normal, no discharge. Neck: supple, no stridor. no midline c-spine tenderness. Cardiovascular: RRR, no murmurs, no edema. Lungs & Thorax: LCTAB, no wheezing, no respiratory distress. Abdomen: soft, nontender, nondistended. Skin: Warm, dry, no erythema, no rash. Back: generalized lumbar spine tenderness without step offs, no thoracic tenderness.. Extremities: No deformity or tenderness, no edema. Neurologic: Alert and oriented X 3, no focal deficits noted. symmetric strength /sensation to LE Psychologic: flat affect Current Patient Data Vital Signs Vital Signs Date Time Temp Pulse Resp B/P Pulse Ox O2 Delivery O2 Flow Rate FiO2 02/07/17 21:20 86 18 118/68 96 Nasal Cannula 2 02/07/17 19:59 98.3 98.3 Lab Values Laboratory Tests Test 02/07/17 20:15 White Blood Count 8.3x10^3/uL (4.0-11.0) Red Blood Count 4.15x10^6/uL (3.50-5.40) Hemoglobin 11.9g/dL (12.0-15.5) L Hematocrit 35.8% (36.0-47.0) L Mean Corpuscular Volume 86fL (79-100) Mean Corpuscular Hemoglobin 29pg (25-35) Mean Corpuscular Hemoglobin Concent 33g/dL (31-37) Red Cell Distribution Width 15.2% (11.5-14.5) H Platelet Count 227x10^3/uL (140-400) Neutrophils (%) (Auto) 73% (31-73) Lymphocytes (%) (Auto) 20% (24-48) L Monocytes (%) (Auto) 6% (0-9) Eosinophils (%) (Auto) 0% (0-3) Basophils (%) (Auto) 1% (0-3) Neutrophils # (Auto) 6.1x10^3uL (1.8-7.7) Lymphocytes # (Auto) 1.7x10^3/uL (1.0-4.8) Monocytes # (Auto) 0.5x10^3/uL (0.0-1.1) Eosinophils # (Auto) 0.0x10^3/uL (0.0-0.7) Basophils # (Auto) 0.0x10^3/uL (0.0-0.2) Prothrombin Time 12.5SEC (11.7-14.0) Prothrombin Time INR 1.0 (0.8-1.1) PTT 26SEC (24-38) Sodium Level 137mmol/L (136-145) Potassium Level 3.3mmol/L (3.5-5.1) L Chloride Level 102mmol/L (98-107) Carbon Dioxide Level 28mmol/L (21-32) Anion Gap 7 (6-14) Blood Urea Nitrogen 16mg/dL (7-20) Creatinine 0.7mg/dL (0.6-1.0) Estimated GFR (Cockcroft-Gault) 83.7 BUN/Creatinine Ratio 23 (6-20) H Glucose Level 130mg/dL (70-99) H Calcium Level 9.3mg/dL (8.5-10.1) Total Bilirubin 0.4mg/dL (0.2-1.0) Aspartate Amino Transferase (AST) 21U/L (15-37) Alanine Aminotransferase (ALT) 17U/L (14-59) Alkaline Phosphatase 77U/L (46-116) Troponin I Quantitative < 0.017ng/mL (0.000-0.055) XW-Vxq-J-Type Natriuretic Peptide 57pg/mL (0-124) Total Protein 6.4g/dL (6.4-8.2) Albumin 3.2g/dL (3.4-5.0) L Albumin/Globulin Ratio 1.0 (1.0-1.7) Thyroid Stimulating Hormone (TSH) 1.122uIU/mL (0.358-3.74) Laboratory Tests 02/07/17 20:15 Laboratory Tests 02/07/17 20:15 EKG EKG interpreted by me: NSR rate 99, no acute ST/T wave changes, normal intervals, no ectopy.[] Radiology/Procedures Radiology/Procedures CXR: no cardiomegaly, no infiltrate, no pneumothorax, poor inspiratory effort. PROCEDURE: CT LUMBAR SPINE WO CONTRAST PROCEDURE CT study of the lumbar spine without contrast HISTORY Fall. Back pain. Recent back surgery in October 2016. TECHNIQUE Noncontrast helical CT scanning of the lumbar spine was performed. Multiplanar 2D reconstructions were generated. One or more of the following individualized dose reduction techniques were utilized for this study: 1. Automated exposure control 2. Adjustment of the mA and/or kV according to patient size 3. Use of iterative reconstruction technique COMPARISON December 12, 2016. FINDINGS Mild dextroscoliosis is seen. Again seen is moderate compression fracture of L2 which has been treated with a vertebroplasty. No new posterior protrusion of bony elements or methylmethacrylate into the spinal canal is seen. This is stable. No new compression fracture is evident. There is retrolisthesis of L2 on L3 which is stable. There is degenerative spurring of L1-2 and L2-3 and L3-4 and L5-S1 along with diffuse disc bulging which is stable. Multilevel spinal canal stenosis is unchanged from the previous study. The transverse processes are intact. No discitis or osteolytic process is seen. IMPRESSION Stable compression fracture of L2. No new compression fracture is evident. Stable study. Electronically signed by: Nathan Bahena MD (Feb 07, 2017 21:18:09) DICTATED and SIGNED BY: NATHAN BAHENA MD DATE: 02/07/172117[] Course & Med Decision Making Course & Med Decision Making Pertinent Labs and Imaging studies reviewed. (See chart for details) The patient presents with back pain after a fall. No syncope, no head trauma. Gave pain medication, given her history of back surgery obtained CT which showed old compression fracture, no new injury. She had persistent weakness, unable to ambulate independently, not appropriate for discharge home at this time. Discussed with Dr. Gómez who agrees to admit to inpatient status, patient agrees with plan of care. She is admitted in stable condition. [] Dragon Disclaimer Dragon Disclaimer This electronic medical record was generated, in whole or in part, using a voice recognition dictation system. Departure Departure Impression: Primary Impression: Generalized weakness Additional Impression: Lower back pain Disposition: ADMITTED INPATIENT Admitting Physician: Loida Gómez Condition: STABLE Problem Qualifiers SISI MUJICA MD Feb 07, 2017 23:28
[2017-02-07 23:54] VITALS: BP 123/77
[2017-02-08] VITALS (7 sets, daily range): BP systolic 102–139; BP diastolic 62–80
[2017-02-08] MEDS ORDERED: SUMATRIPTAN SUCCINATE 100 MG TABLET. PO PRN (01:15)
[2017-02-08] MEDS: clonazePAM 1 MG TABLET PO SCH ×3 (01:22→20:37)
[2017-02-08] MEDS: HYDROCODONE/APAP 5/325MG TABLET. PO PRN ×2 (01:22→16:51)
[2017-02-08] MEDS: ZOLPIDEM 5 MG TABLET. PO PRN ×2 (01:22→20:37)
--- NOTE | 2017-02-08 07:48 | EKG ---
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
--- NOTE | 2017-02-08 08:38 | RAD ---
Portable AP upright view CXR: Clinical indications: Shortness of breath today. Comparison: January 15, 2017. Findings: No acute lung infiltrate or pleural effusion or pulmonary edema or lung mass or pneumothorax is seen. The heart size, pulmonary vasculature, mediastinum and both yane are unremarkable. Elevation of the right hemidiaphragm is unchanged. Impression: No acute radiographic abnormality is seen.
[2017-02-08] MEDS: SENNOSIDES/DOCUSATE 8.6/50MG TABLET. PO SCH (08:48)
[2017-02-08] MEDS: HYDROCHLOROTHIAZIDE 25 MG TABLET PO SCH (08:48)
[2017-02-08] MEDS: DOCUSATE SODIUM 100 MG CAPSULE. PO SCH (08:48)
[2017-02-08] MEDS: LUBIPROSTONE 8 MCG CAPSULE PO SCH ×2 (08:48→16:50)
[2017-02-08] MEDS: buPROPion XL 150 MG TAB.ER.24H. PO SCH (08:48)
[2017-02-08] MEDS: LOSARTAN POTASSIUM 50 MG TABLET. PO SCH (08:50)
[2017-02-08] MEDS: amLODIPine BESYLATE 10 MG TABLET PO SCH (08:51)
[2017-02-08] MEDS: POTASSIUM CHLORIDE 20 MEQ TABLET.ER. PO SCH (08:52)
[2017-02-08] MEDS: fentaNYL PF VIAL 100 MCG/2 ML VIAL IV PRN ×6 (08:59→20:36)
[2017-02-08] MEDS ORDERED: PNEUMOC CONJ VACC 23-VALENT 0.5 ML VIAL. VAX IM ONE (09:00)
[2017-02-08] MEDS ORDERED: buPROPion 100 MG TABLET PO SCH (09:00)
[2017-02-08] MEDS ORDERED: CHOLECALCIFEROL (VITAMIN D3) 5,000 UNIT CAPSULE PO SCH (09:00)
--- NOTE | 2017-02-08 10:16 | PDOC1 ---
History and Physical Past Medical History Cardiovascular: HTN, Hyperlipidemia CENTRAL NERVOUS SYSTEM: Migraine Psych: Bipolar, Schizophrenia Endocrine: Osteoporosis Past Surgical History Past Surgical History: Tonsillectomy, Hysterectomy, Other Family History Family History: No Significant Social History ALCOHOL: none Drugs: None Current Problem List Problem List Problems Medical Problems: (1) Generalized weakness Status: Acute (2) Lower back pain Status: Acute Current Medications Current Medications Current Medications Medications (Trade) Dose Ordered Sig/[facility] Start Time Stop Time Status Last Admin Dose Admin Acetaminophen (Tylenol) 650 mg PRN Q4HRS PRN 02/07/17 22:00 02/08/17 21:59 02/08/17 08:58 650 MG Acetaminophen/ Hydrocodone Bitart (Lortab 5/325) 1 tab PRN Q12HR PRN 02/08/17 00:45 02/08/17 01:22 1 TAB Amlodipine Besylate (Norvasc) 10 mg DAILY 02/08/17 09:00 02/08/17 08:51 10 MG Atorvastatin Calcium (Lipitor) 40 mg HS 02/08/17 21:00 Bupropion HCl (Wellbutrin Xl) 300 mg DAILY 02/08/17 09:00 02/08/17 08:48 300 MG Bupropion HCl (Wellbutrin) 300 mg DAILY 02/08/17 09:00 UNV Clonazepam (Klonopin) 1 mg BID 02/08/17 01:30 02/08/17 08:48 1 MG Docusate Sodium (Colace) 100 mg DAILY 02/08/17 09:00 02/08/17 08:48 100 MG Fentanyl Citrate (Fentanyl 2ml Vial) 50 mcg PRN Q2HR PRN 02/07/17 22:00 02/08/17 21:59 02/08/17 08:59 50 MCG Hydrochlorothiazide (Hydrodiuril) 25 mg DAILY 02/08/17 09:00 02/08/17 08:48 25 MG Losartan Potassium (Cozaar) 100 mg DAILY 02/08/17 09:00 02/08/17 08:50 100 MG Lubiprostone (Amitiza) 24 mcg BIDWMEALS 02/08/17 08:00 02/08/17 08:48 24 MCG Lurasidone HCl (Latuda) 120 mg DAILYWSUP 02/08/17 17:00 Non-Formulary Medication 1 each HS 02/08/17 21:00 UNV Ondansetron HCl (Zofran) 4 mg PRN Q8HRS PRN 02/07/17 22:00 02/08/17 21:59 Pneumococcal Polyvalent Vaccine (Pneumovax 23) 0.5 ml ONCE ONCE 02/08/17 09:00 02/08/17 09:01 DC Potassium Chloride (Klor-Con) 20 meq DAILY 02/08/17 09:00 02/08/17 08:52 20 MEQ Senna/Docusate Sodium (Senna Plus) 1 tab DAILY 02/08/17 09:00 02/08/17 08:48 1 TAB Sumatriptan Succinate (Imitrex) 100 mg PRN Q2HR PRN 02/08/17 01:15 Tizanidine HCl (Zanaflex) 4 mg PRN Q8HRS PRN 02/08/17 00:45 Vitamin D (Vitamin D3) 5,000 unit WEEKLY 02/08/17 09:00 02/08/17 08:48 5,000 UNIT Zolpidem Tartrate (Ambien) 5 mg PRN QHS PRN 02/08/17 00:45 02/08/17 01:22 5 MG Allergies Allergies Allergies Coded Allergies Type Severity Reaction Last Updated Verified No Known Drug Allergies 09/19/15 No ROS Review of System CONSTITUTIONAL: weakness, sob, fall at home EYES: No recent changes SKIN: No rash or itching CARDIOVASCULAR: No chest pain, syncope, palpitations, or edema RESPIRATORY: no cough GASTROINTESTINAL: No nausea, vomiting or abdominal pain NEUROLOGICAL: No headaches or weakness ENDOCRINE: No cold or heat intolerance GENITOURINARY: No urgency or frequency of urination MUSCULOSKELETAL: No back pain or joint pain LYMPHATICS: No enlarged lymph nodes PSYCHIATRIC: No anxiety or depression Physical Exam Physical Exam GEN.: No apparent distress. Alert and oriented. HEENT: Head is normocephalic, atraumatic NECK: Supple. LUNGS: Clear to auscultation. HEART: RRR, S1, S2 present. Peripheral pulses intact ABDOMEN: Soft, nontender. Positive bowel sounds. EXTREMITIES: Without any cyanosis. NEUROLOGIC: Normal speech, normal tone PSYCHIATRIC: Normal affect, normal mood. SKIN: dry, no visible rash Vitals Vitals Vital Signs Date Time Temp Pulse Resp B/P Pulse Ox O2 Delivery O2 Flow Rate FiO2 02/08/17 08:59 Room Air 02/08/17 08:51 84 139/74 02/08/17 07:00 98.0 22 98 98.0 02/08/17 00:12 2.0 Labs Labs Laboratory Tests Test 02/07/17 20:15 02/07/17 21:34 White Blood Count 8.3x10^3/uL (4.0-11.0) Red Blood Count 4.15x10^6/uL (3.50-5.40) Hemoglobin 11.9g/dL (12.0-15.5) Hematocrit 35.8% (36.0-47.0) Mean Corpuscular Volume 86fL (79-100) Mean Corpuscular Hemoglobin 29pg (25-35) Mean Corpuscular Hemoglobin Concent 33g/dL (31-37) Red Cell Distribution Width 15.2% (11.5-14.5) Platelet Count 227x10^3/uL (140-400) Neutrophils (%) (Auto) 73% (31-73) Lymphocytes (%) (Auto) 20% (24-48) Monocytes (%) (Auto) 6% (0-9) Eosinophils (%) (Auto) 0% (0-3) Basophils (%) (Auto) 1% (0-3) Neutrophils # (Auto) 6.1x10^3uL (1.8-7.7) Lymphocytes # (Auto) 1.7x10^3/uL (1.0-4.8) Monocytes # (Auto) 0.5x10^3/uL (0.0-1.1) Eosinophils # (Auto) 0.0x10^3/uL (0.0-0.7) Basophils # (Auto) 0.0x10^3/uL (0.0-0.2) Prothrombin Time 12.5SEC (11.7-14.0) Prothromb Time International Ratio 1.0 (0.8-1.1) Activated Partial Thromboplast Time 26SEC (24-38) Sodium Level 137mmol/L (136-145) Potassium Level 3.3mmol/L (3.5-5.1) Chloride Level 102mmol/L (98-107) Carbon Dioxide Level 28mmol/L (21-32) Anion Gap 7 (6-14) Blood Urea Nitrogen 16mg/dL (7-20) Creatinine 0.7mg/dL (0.6-1.0) Estimated GFR (Cockcroft-Gault) 83.7 BUN/Creatinine Ratio 23 (6-20) Glucose Level 130mg/dL (70-99) Calcium Level 9.3mg/dL (8.5-10.1) Total Bilirubin 0.4mg/dL (0.2-1.0) Aspartate Amino Transf (AST/SGOT) 21U/L (15-37) Alanine Aminotransferase (ALT/SGPT) 17U/L (14-59) Alkaline Phosphatase 77U/L (46-116) Troponin I Quantitative < 0.017ng/mL (0.000-0.055) ZM-Ijx-Z-Type Natriuretic Peptide 57pg/mL (0-124) Total Protein 6.4g/dL (6.4-8.2) Albumin 3.2g/dL (3.4-5.0) Albumin/Globulin Ratio 1.0 (1.0-1.7) Thyroid Stimulating Hormone (TSH) 1.122uIU/mL (0.358-3.74) Urine Collection Type Unknown Urine Color Yellow Urine Clarity Clear Urine pH 6.0 Urine Specific Dixon 1.015 Urine Protein Negativemg/dL (NEG-TRACE) Urine Glucose (UA) Negativemg/dL (NEG) Urine Ketones (Stick) Negativemg/dL (NEG) Urine Blood Trace (NEG) Urine Nitrite Negative (NEG) Urine Bilirubin Negative (NEG) Urine Urobilinogen Dipstick 0.2mg/dL (0.2 mg/dL) Urine Leukocyte Esterase Negative (NEG) Urine RBC 1-2/HPF (0-2) Urine WBC Occ/HPF (0-4) Urine Squamous Epithelial Cells Few/LPF Urine Amorphous Sediment Present/HPF Urine Bacteria Few/HPF (0-FEW) Urine Hyaline Casts Moderate/HPF Urine Mucus Mod/LPF Laboratory Tests Test 02/07/17 20:15 02/07/17 21:34 White Blood Count 8.3x10^3/uL (4.0-11.0) Red Blood Count 4.15x10^6/uL (3.50-5.40) Hemoglobin 11.9g/dL (12.0-15.5) Hematocrit 35.8% (36.0-47.0) Mean Corpuscular Volume 86fL (79-100) Mean Corpuscular Hemoglobin 29pg (25-35) Mean Corpuscular Hemoglobin Concent 33g/dL (31-37) Red Cell Distribution Width 15.2% (11.5-14.5) Platelet Count 227x10^3/uL (140-400) Neutrophils (%) (Auto) 73% (31-73) Lymphocytes (%) (Auto) 20% (24-48) Monocytes (%) (Auto) 6% (0-9) Eosinophils (%) (Auto) 0% (0-3) Basophils (%) (Auto) 1% (0-3) Neutrophils # (Auto) 6.1x10^3uL (1.8-7.7) Lymphocytes # (Auto) 1.7x10^3/uL (1.0-4.8) Monocytes # (Auto) 0.5x10^3/uL (0.0-1.1) Eosinophils # (Auto) 0.0x10^3/uL (0.0-0.7) Basophils # (Auto) 0.0x10^3/uL (0.0-0.2) Prothrombin Time 12.5SEC (11.7-14.0) Prothromb Time International Ratio 1.0 (0.8-1.1) Activated Partial Thromboplast Time 26SEC (24-38) Sodium Level 137mmol/L (136-145) Potassium Level 3.3mmol/L (3.5-5.1) Chloride Level 102mmol/L (98-107) Carbon Dioxide Level 28mmol/L (21-32) Anion Gap 7 (6-14) Blood Urea Nitrogen 16mg/dL (7-20) Creatinine 0.7mg/dL (0.6-1.0) Estimated GFR (Cockcroft-Gault) 83.7 BUN/Creatinine Ratio 23 (6-20) Glucose Level 130mg/dL (70-99) Calcium Level 9.3mg/dL (8.5-10.1) Total Bilirubin 0.4mg/dL (0.2-1.0) Aspartate Amino Transf (AST/SGOT) 21U/L (15-37) Alanine Aminotransferase (ALT/SGPT) 17U/L (14-59) Alkaline Phosphatase 77U/L (46-116) Troponin I Quantitative < 0.017ng/mL (0.000-0.055) QV-Hfv-Y-Type Natriuretic Peptide 57pg/mL (0-124) Total Protein 6.4g/dL (6.4-8.2) Albumin 3.2g/dL (3.4-5.0) Albumin/Globulin Ratio 1.0 (1.0-1.7) Thyroid Stimulating Hormone (TSH) 1.122uIU/mL (0.358-3.74) Urine Collection Type Unknown Urine Color Yellow Urine Clarity Clear Urine pH 6.0 Urine Specific Dixon 1.015 Urine Protein Negativemg/dL (NEG-TRACE) Urine Glucose (UA) Negativemg/dL (NEG) Urine Ketones (Stick) Negativemg/dL (NEG) Urine Blood Trace (NEG) Urine Nitrite Negative (NEG) Urine Bilirubin Negative (NEG) Urine Urobilinogen Dipstick 0.2mg/dL (0.2 mg/dL) Urine Leukocyte Esterase Negative (NEG) Urine RBC 1-2/HPF (0-2) Urine WBC Occ/HPF (0-4) Urine Squamous Epithelial Cells Few/LPF Urine Amorphous Sediment Present/HPF Urine Bacteria Few/HPF (0-FEW) Urine Hyaline Casts Moderate/HPF Urine Mucus Mod/LPF VTE Prophylaxis Ordered VTE Prophylaxis Devices: No VTE Pharmacological Prophylaxi: Yes FRANK SANTANA MD Feb 08, 2017 10:16
[2017-02-08] MEDS ORDERED: ENOXAPARIN 30 MG/0.3 ML SYRINGE. SQ SCH (10:30)
--- NOTE | 2017-02-08 11:13 | HP ---
ADMIT DATE: 02/08/2017 CHIEF COMPLAINT: Mechanical fall. HISTORY OF PRESENT ILLNESS: A 66-year-old female patient with hypertension, schizophrenia and bipolar disorder, who was recently admitted to the hospital and later, she was discharged to group home facility. The patient was there reportedly for nearly 3 weeks and back to her home. She says she is feeling very weak and her legs gave out and fell at home. She denies any trauma; however, she says intractable back pain after fall. She had a prior history of kyphoplasty after traumatic compression fracture. She denies any other symptoms as described in the HPI. PAST MEDICAL HISTORY: Hypertension, schizophrenia, hyperlipidemia and bipolar. PAST SURGICAL HISTORY: Hysterectomy, tonsillectomy, bladder surgery and kyphoplasty. PERSONAL HISTORY: No smoking, no alcohol, no drug abuse. FAMILY HISTORY: Unknown to the patient ALLERGIES: NKDA. REVIEW OF SYSTEMS: Please see my electronic H and P. PHYSICAL EXAMINATION: Please see my electronic H and P. LABORATORY DATA: CBC within normal limits. Chemistry within normal limits except potassium 3.3. Urine: Nitrites negative, bilirubin negative, leukocyte esterase negative. IMAGING STUDIES: Lumbar spinal CT, stable; compression fracture of L2; no new compression seen. Chest x-ray, no acute radiographic changes seen. ASSESSMENT: 1. [id number] back pain with fall at home. 2. Physical debility difficult to perform ADLs and IADLs. 3. Hypertension. 4. Hyperlipidemia. 5. Schizophrenia. PLAN: 1. The patient has been admitted for pain control and currently she is getting IV fentanyl for pain control. We will ask Physical Therapy and Occupational Therapy work with her. 2. DVT prophylaxis. 3. Home medications reviewed and reconciled. All her chronic conditions are in stable condition. 4. Potassium has been replaced. 5. DVT prophylaxis with Lovenox. 6. The patient has group home facility. FRANK SANTANA MD DR: JENNY/ankit JOB#: [id number] / [id number]
[2017-02-08] MEDS: LURASIDONE 40 MG TABLET. PO SCH (16:50)
[2017-02-08] MEDS: ATORVASTATIN CALCIUM 40 MG TABLET. PO SCH (20:36)
[2017-02-08] MEDS ORDERED: PYRIDOXINE HCL PO SCH (21:00)
[2017-02-08] MEDS ORDERED: MELATONIN PO SCH (21:00)
[2017-02-09 03:07] VITALS: BP 110/64
[2017-02-09 07:00] VITALS: BP 117/77
[2017-02-09] MEDS: SENNOSIDES/DOCUSATE 8.6/50MG TABLET. PO SCH (09:18)
[2017-02-09] MEDS: LUBIPROSTONE 8 MCG CAPSULE PO SCH ×2 (09:18→16:22)
[2017-02-09] MEDS: buPROPion XL 150 MG TAB.ER.24H. PO SCH (09:18)
[2017-02-09] MEDS: HYDROCODONE/APAP 5/325MG TABLET. PO PRN ×2 (09:19→20:59)
[2017-02-09] MEDS: amLODIPine BESYLATE 10 MG TABLET PO SCH (09:19)
[2017-02-09] MEDS: HYDROCHLOROTHIAZIDE 25 MG TABLET PO SCH (09:19)
[2017-02-09] MEDS: DOCUSATE SODIUM 100 MG CAPSULE. PO SCH (09:19)
[2017-02-09] MEDS: clonazePAM 1 MG TABLET PO SCH ×2 (09:19→20:59)
[2017-02-09] MEDS: POTASSIUM CHLORIDE 20 MEQ TABLET.ER. PO SCH (09:20)
[2017-02-09] MEDS: LOSARTAN POTASSIUM 50 MG TABLET. PO SCH (09:20)
[2017-02-09] MEDS: ENOXAPARIN 40 MG/0.4 ML SYRINGE. SQ SCH (09:23)
[2017-02-09 10:46] VITALS: BP 98/62
--- NOTE | 2017-02-09 12:00 | PDOC ---
PROGRESS NOTES Chief Complaint Chief Complaint cc: fall at home A/P 1. Vmlsq-rw-rdkwajs back pain with fall at home.: started on Fantasy patch with [place], PT/OT, 2. Physical debility difficult to perform ADLs and IADLs.: need SNU placement, not stable to go home, consult Dr Frankel 3. Hypertension. 4. Hyperlipidemia. 5. Schizophrenia. Vitals Vitals Vital Signs Date Time Temp Pulse Resp B/P Pulse Ox O2 Delivery O2 Flow Rate FiO2 02/09/17 10:46 98.2 84 17 98/62 95 Room Air 98.2 Physical Exam General: Alert, Oriented X3 Heart: Regular rate, Normal S1, Normal S2 Lungs: Clear Abdomen: Normal bowel sounds Assessment and Plan Assessmemt and Plan Problems Medical Problems: (1) Generalized weakness Status: Acute (2) Lower back pain Status: Acute Problems: Comment Review of Relevant I have reviewed the following items brandie (where applicable) has been applied. Labs Laboratory Tests Test 02/07/17 20:15 02/07/17 21:34 White Blood Count 8.3x10^3/uL (4.0-11.0) Red Blood Count 4.15x10^6/uL (3.50-5.40) Hemoglobin 11.9g/dL (12.0-15.5) Hematocrit 35.8% (36.0-47.0) Mean Corpuscular Volume 86fL (79-100) Mean Corpuscular Hemoglobin 29pg (25-35) Mean Corpuscular Hemoglobin Concent 33g/dL (31-37) Red Cell Distribution Width 15.2% (11.5-14.5) Platelet Count 227x10^3/uL (140-400) Neutrophils (%) (Auto) 73% (31-73) Lymphocytes (%) (Auto) 20% (24-48) Monocytes (%) (Auto) 6% (0-9) Eosinophils (%) (Auto) 0% (0-3) Basophils (%) (Auto) 1% (0-3) Neutrophils # (Auto) 6.1x10^3uL (1.8-7.7) Lymphocytes # (Auto) 1.7x10^3/uL (1.0-4.8) Monocytes # (Auto) 0.5x10^3/uL (0.0-1.1) Eosinophils # (Auto) 0.0x10^3/uL (0.0-0.7) Basophils # (Auto) 0.0x10^3/uL (0.0-0.2) Prothrombin Time 12.5SEC (11.7-14.0) Prothromb Time International Ratio 1.0 (0.8-1.1) Activated Partial Thromboplast Time 26SEC (24-38) Sodium Level 137mmol/L (136-145) Potassium Level 3.3mmol/L (3.5-5.1) Chloride Level 102mmol/L (98-107) Carbon Dioxide Level 28mmol/L (21-32) Anion Gap 7 (6-14) Blood Urea Nitrogen 16mg/dL (7-20) Creatinine 0.7mg/dL (0.6-1.0) Estimated GFR (Cockcroft-Gault) 83.7 BUN/Creatinine Ratio 23 (6-20) Glucose Level 130mg/dL (70-99) Calcium Level 9.3mg/dL (8.5-10.1) Total Bilirubin 0.4mg/dL (0.2-1.0) Aspartate Amino Transf (AST/SGOT) 21U/L (15-37) Alanine Aminotransferase (ALT/SGPT) 17U/L (14-59) Alkaline Phosphatase 77U/L (46-116) Troponin I Quantitative < 0.017ng/mL (0.000-0.055) XM-Qyt-Q-Type Natriuretic Peptide 57pg/mL (0-124) Total Protein 6.4g/dL (6.4-8.2) Albumin 3.2g/dL (3.4-5.0) Albumin/Globulin Ratio 1.0 (1.0-1.7) Thyroid Stimulating Hormone (TSH) 1.122uIU/mL (0.358-3.74) Urine Collection Type Unknown Urine Color Yellow Urine Clarity Clear Urine pH 6.0 Urine Specific [place] 1.015 Urine Protein Negativemg/dL (NEG-TRACE) Urine Glucose (UA) Negativemg/dL (NEG) Urine Ketones (Stick) Negativemg/dL (NEG) Urine Blood Trace (NEG) Urine Nitrite Negative (NEG) Urine Bilirubin Negative (NEG) Urine Urobilinogen Dipstick 0.2mg/dL (0.2 mg/dL) Urine Leukocyte Esterase Negative (NEG) Urine RBC 1-2/HPF (0-2) Urine WBC Occ/HPF (0-4) Urine Squamous Epithelial Cells Few/LPF Urine Amorphous Sediment Present/HPF Urine Bacteria Few/HPF (0-FEW) Urine Hyaline Casts Moderate/HPF Urine Mucus Mod/LPF Medications Current Medications Fentanyl Citrate (Fentanyl 2ml Vial) 50 mcg PRN Q15MIN PRN IV PAIN GREATER THAN 3/10 Last administered on 02/07/17 21:31; Start 02/07/17 at 21:00; Stop at 00:00; Status DC Ondansetron HCl (Zofran) 4 mg PRN Q8HRS PRN IV NAUSEA/VOMITING; Start 02/07/17 at 22:00; Stop 02/08/17 at 21:59; Status DC Fentanyl Citrate (Fentanyl 2ml Vial) 50 mcg PRN Q2HR PRN IV SEVERE PAIN Last administered on 02/08/17 20:36; Start 02/07/17 at 22:00; Stop 02/08/17 at 21:59 ; Status DC Acetaminophen (Tylenol) 650 mg PRN Q4HRS PRN PO FEVER Last administered on 02/08 08:58; Start 02/07/17 at 22:00; Stop 02/08/17 at 21:59; Status DC Pneumococcal Polyvalent Vaccine (Pneumovax 23) 0.5 ml ONCE ONCE VAX IM Last administered on 02/08/17 11:52; Start 02/08/17 at 09:00; Stop 02/08/17 at 09:01 ; Status DC Amlodipine Besylate (Norvasc) 10 mg DAILY PO Last administered on 02/09/17 09: 19; Start 02/08/17 at 09:00 Atorvastatin Calcium (Lipitor) 40 mg HS PO Last administered on 02/08/17 20:36 ; Start 02/08/17 at 21:00 Clonazepam (Klonopin) 1 mg BID PO Last administered on 02/09/17 09:19; Start at 01:30 Docusate Sodium (Colace) 100 mg DAILY PO Last administered on 02/09/17 09:19; Start 02/08/17 at 09:00 Hydrochlorothiazide (Hydrodiuril) 25 mg DAILY PO Last administered on 02/09/17 09:19; Start 02/08/17 at 09:00 Acetaminophen/ Hydrocodone Bitart (Lortab 5/325) 1 tab PRN Q12HR PRN PO MODERATE PAIN Last administered on 02/09/17 09:19; Start 02/08/17 at 00:45 Potassium Chloride (Klor-Con) 20 meq DAILY PO Last administered on 02/09/17 09: 20; Start 02/08/17 at 09:00 Non-Formulary Medication 70 mg QM PO ; Start 02/09/17 at 16:00; Status UNV Bupropion HCl (Wellbutrin Xl) 300 mg DAILY PO Last administered on 02/09/17 09: 18; Start 02/08/17 at 09:00 Vitamin D (Vitamin D3) 5,000 unit WEEKLY PO Last administered on 02/08/17 08: 48; Start 02/08/17 at 09:00 Losartan Potassium (Cozaar) 100 mg DAILY PO Last administered on 02/09/17 09:20 ; Start 02/08/17 at 09:00 Lurasidone HCl (Latuda) 120 mg DAILYWSUP PO Last administered on 02/08/17 16: 50; Start 02/08/17 at 17:00 Non-Formulary Medication 1 each HS PO ; Start 02/08/17 at 21:00; Status UNV Sumatriptan Succinate (Imitrex) 100 mg PRN Q2HR PRN PO MIGRAINE HEADACHE; Start 02/08/17 at 01:15 Lubiprostone (Amitiza) 24 mcg BIDWMEALS PO Last administered on 02/09/17 09:18 ; Start 02/08/17 at 08:00 Bupropion HCl (Wellbutrin) 300 mg DAILY PO ; Start 02/08/17 at 09:00; Status UNV Senna/Docusate Sodium (Senna Plus) 1 tab DAILY PO Last administered on 09:18; Start 02/08/17 at 09:00 Tizanidine HCl (Zanaflex) 4 mg PRN Q8HRS PRN PO MUSCLE SPASMS; Start 02/08/17 at 00:45 Zolpidem Tartrate (Ambien) 5 mg PRN QHS PRN PO INSOMNIA Last administered on 20:37; Start 02/08/17 at 00:45 Enoxaparin Sodium (Lovenox 30mg Syringe) 30 mg Q24H SQ Last administered on 11:52; Start 02/08/17 at 10:30; Stop 02/08/17 at 14:24; Status DC Enoxaparin Sodium (Lovenox 40mg Syringe) 40 mg Q24H SQ Last administered on 02/09 09:23; Start 02/09/17 at 09:00 Active Scripts Active Naproxen 375 Mg Tablet 375 Mg PO BID PRN Reported Stool Softener (Docusate Sodium) 100 Mg Capsule 100 Mg PO DAILY Melatonin 5 Mg Tablet (Melatonin/Pyridoxine Hcl (B6)) 1 Each Tablet 1 Each PO HS Latuda (Lurasidone Hcl) 120 Mg Tablet 120 Mg PO DAILYWSUP Bupropion Xl (Bupropion Hcl) 300 Mg Tab.er.24h 300 Mg PO DAILY Alendronate Sodium 70 Mg Tablet 70 Mg PO WEEKLY Ibuprofen 600 Mg Tablet 600 Mg PO Q6H PRN Hydrocodone-Apap 5-325 (Hydrocodone Bit/Acetaminophen) 1 Each Tablet 1 Tab PO PRN Q6HRS PRN Vitamin D-3 (Cholecalciferol (Vitamin D3)) 2,000 Unit Tablet 5,000 Unit PO WEEKLY Losartan Potassium 100 Mg Tablet 100 Mg PO DAILY Amlodipine Besylate 10 Mg Tablet 10 Mg PO DAILY Atorvastatin Calcium 40 Mg Tablet 40 Mg PO DAILY Hydrochlorothiazide Capsule (Hydrochlorothiazide) 12.5 Mg Capsule 25 Mg PO DAILY Potassium Chloride 20 Meq Tab.er.prt 20 Meq PO DAILY Maxalt (Rizatriptan Benzoate) 10 Mg Tablet 10 Mg PO PRN PRN Clonazepam 1 Mg Tablet 1 Mg PO Vitals/I & O Vital Sign - Last 24 Hours 02/08/17 02/08/17 02/08/17 02/08/17 13:50 15:00 15:25 16:30 Temp 97.2 97.2 Pulse 82 Resp 20 B/P 139/80 Pulse Ox 96 O2 Delivery Room Air Room Air Room Air Room Air 02/08/17 02/08/17 02/08/17 02/08/17 16:51 17:00 18:23 19:00 Temp 98.4 98.4 Pulse 85 Resp 16 B/P 102/64 Pulse Ox 89 O2 Delivery Room Air Room Air Room Air Room Air 02/08/17 02/08/17 02/08/17 02/09/17 19:50 20:36 22:54 03:07 Temp 98.0 98.3 98.0 98.3 Pulse 86 90 Resp 20 18 16 B/P 103/67 110/64 Pulse Ox 92 90 O2 Delivery Room Air Room Air Room Air Room Air 02/09/17 02/09/17 02/09/17 02/09/17 07:00 08:00 09:19 09:19 Temp 97.7 97.7 Pulse 95 90 Resp 17 B/P 117/77 110/64 Pulse Ox 93 O2 Delivery Room Air Room Air Room Air 02/09/17 02/09/17 09:20 10:46 Temp 98.2 98.2 Pulse 90 84 Resp 17 B/P 110/64 98/62 Pulse Ox 95 O2 Delivery Room Air Intake and Output 02/08/17 02/08/17 02/09/17 14:59 22:59 06:59 Intake Total 960 ml 480 ml Output Total 1750 ml 450 ml Balance -790 ml 480 ml -450 ml FRANK SANTANA MD February 09, 2017 12:00
[2017-02-09] MEDS ORDERED: fentaNYL 12MCG/HR PATCH 1 PATCH PATCH.TD72 TD SCH (13:30)
[2017-02-09 15:00] VITALS: BP 106/56
[2017-02-09] MEDS ORDERED: NON FORMULARY ITEM (Alendronate Sodium 70 MG) PO SCH (16:00)
[2017-02-09] MEDS: LURASIDONE 40 MG TABLET. PO SCH (16:20)
[2017-02-09] MEDS: tiZANidine 4 MG TABLET. PO PRN (16:27)
[2017-02-09 19:00] VITALS: BP 108/63
[2017-02-09] MEDS: ATORVASTATIN CALCIUM 40 MG TABLET. PO SCH (20:59)
[2017-02-09] MEDS: ZOLPIDEM 5 MG TABLET. PO PRN (21:01)
[2017-02-09 23:00] VITALS: BP 106/65
[2017-02-10 07:00] VITALS: BP 111/74
[2017-02-10 07:57] LABS: CALCIUM 9.1 mg/dL (8.5-10.1); CREATININE 0.5 mg/dL (0.6-1.0); GFR 123.4
[2017-02-10 07:58] LABS: BASO % 1 % (0-3); EOS % 2 % (0-3); HEMATOCRIT 34.2 % (36.0-47.0); HEMOGLOBIN 11.5 g/dL (12.0-15.5); LYMPH # 1.9 x10^3/uL (1.0-4.8); LYMPH % 37 % (24-48); MEAN CORPUSCULAR HEMOGLOBIN 29 pg (25-35); MEAN CORPUSCULAR HGB CONC 34 g/dL (31-37); MEAN CORPUSCULAR VOLUME 86 fL (79-100); MONO % 7 % (0-9); NEUT % 54 % (31-73); PLATELET COUNT 208 x10^3/uL (140-400); RED BLOOD COUNT 3.96 x10^6/uL (3.50-5.40); RED CELL DISTRIBUTION WIDTH 15.1 % (11.5-14.5); WHITE BLOOD COUNT 5.1 x10^3/uL (4.0-11.0)
[2017-02-10 08:05] LABS: POTASSIUM 2.9 mmol/L (3.5-5.1)
[2017-02-10] MEDS: HYDROCHLOROTHIAZIDE 25 MG TABLET PO SCH (08:21)
[2017-02-10] MEDS: buPROPion XL 150 MG TAB.ER.24H. PO SCH (08:21)
[2017-02-10] MEDS: amLODIPine BESYLATE 10 MG TABLET PO SCH (08:21)
[2017-02-10] MEDS: DOCUSATE SODIUM 100 MG CAPSULE. PO SCH ×2 (08:22→08:29)
[2017-02-10] MEDS: LUBIPROSTONE 8 MCG CAPSULE PO SCH ×2 (08:23→17:07)
[2017-02-10] MEDS: LOSARTAN POTASSIUM 50 MG TABLET. PO SCH (08:23)
[2017-02-10] MEDS: clonazePAM 1 MG TABLET PO SCH ×2 (08:23→20:20)
[2017-02-10] MEDS: HYDROCODONE/APAP 5/325MG TABLET. PO PRN ×3 (08:24→20:20)
[2017-02-10] MEDS: POTASSIUM CHLORIDE 20 MEQ TABLET.ER. PO SCH (08:24)
[2017-02-10] MEDS: SENNOSIDES/DOCUSATE 8.6/50MG TABLET. PO SCH ×2 (08:24→08:30)
[2017-02-10] MEDS: ENOXAPARIN 40 MG/0.4 ML SYRINGE. SQ SCH (08:25)
[2017-02-10] MEDS ORDERED: POTASSIUM CHLORIDE 20 MEQ TABLET.ER. PO ONE ×2 (08:30→11:15)
[2017-02-10 11:03] VITALS: BP 108/68
--- NOTE | 2017-02-10 14:28 | PDOC ---
PROGRESS NOTES Chief Complaint Chief Complaint cc: fall at home A/P 1. Rghmr-uv-dttaygn back pain with fall at home.: started on Fantasy patch with [place], PT/OT, 2. Physical debility difficult to perform ADLs and IADLs.: need SNU placement, not stable to go home, consult Dr Frankel 3. Hypertension. 4. Hyperlipidemia. 5. Schizophrenia. 6. hypokalemia plan: poor home environment, just DCed from here last month to SNF and home last week , then felt weak and fell at home replete K SHOULD be able to dc home with HH tmr, pt will not be qualified to SNF so soon as per History of Present Illness History of Present Illness unsteady gait Vitals Vitals Vital Signs Date Time Temp Pulse Resp B/P Pulse Ox O2 Delivery O2 Flow Rate FiO2 02/10/17 11:03 97.8 85 18 108/68 93 Room Air 97.8 02/10/17 09:24 2.0 Physical Exam General: Alert, Oriented X3 Heart: Regular rate, Normal S1, Normal S2 Lungs: Clear Abdomen: Normal bowel sounds Labs LABS Laboratory Tests Test 02/10/17 06:25 White Blood Count 5.1x10^3/uL (4.0-11.0) Red Blood Count 3.96x10^6/uL (3.50-5.40) Hemoglobin 11.5g/dL (12.0-15.5) Hematocrit 34.2% (36.0-47.0) Mean Corpuscular Volume 86fL (79-100) Mean Corpuscular Hemoglobin 29pg (25-35) Mean Corpuscular Hemoglobin Concent 34g/dL (31-37) Red Cell Distribution Width 15.1% (11.5-14.5) Platelet Count 208x10^3/uL (140-400) Neutrophils (%) (Auto) 54% (31-73) Lymphocytes (%) (Auto) 37% (24-48) Monocytes (%) (Auto) 7% (0-9) Eosinophils (%) (Auto) 2% (0-3) Basophils (%) (Auto) 1% (0-3) Neutrophils # (Auto) 2.7x10^3uL (1.8-7.7) Lymphocytes # (Auto) 1.9x10^3/uL (1.0-4.8) Monocytes # (Auto) 0.4x10^3/uL (0.0-1.1) Eosinophils # (Auto) 0.1x10^3/uL (0.0-0.7) Basophils # (Auto) 0.0x10^3/uL (0.0-0.2) Sodium Level 139mmol/L (136-145) Potassium Level 2.9mmol/L (3.5-5.1) Chloride Level 102mmol/L (98-107) Carbon Dioxide Level 31mmol/L (21-32) Anion Gap 6 (6-14) Blood Urea Nitrogen 9mg/dL (7-20) Creatinine 0.5mg/dL (0.6-1.0) Estimated GFR (Cockcroft-Gault) 123.4 Glucose Level 92mg/dL (70-99) Calcium Level 9.1mg/dL (8.5-10.1) Magnesium Level 2.0mg/dL (1.8-2.4) Review of Systems Review of Systems No fever, chills, sob or chest pain Assessment and Plan Assessmemt and Plan Problems Medical Problems: (1) Generalized weakness Status: Acute (2) Lower back pain Status: Acute Problems: Comment Review of Relevant I have reviewed the following items brandie (where applicable) has been applied. Labs Laboratory Tests Test 02/10/17 06:25 White Blood Count 5.1x10^3/uL (4.0-11.0) Red Blood Count 3.96x10^6/uL (3.50-5.40) Hemoglobin 11.5g/dL (12.0-15.5) Hematocrit 34.2% (36.0-47.0) Mean Corpuscular Volume 86fL (79-100) Mean Corpuscular Hemoglobin 29pg (25-35) Mean Corpuscular Hemoglobin Concent 34g/dL (31-37) Red Cell Distribution Width 15.1% (11.5-14.5) Platelet Count 208x10^3/uL (140-400) Neutrophils (%) (Auto) 54% (31-73) Lymphocytes (%) (Auto) 37% (24-48) Monocytes (%) (Auto) 7% (0-9) Eosinophils (%) (Auto) 2% (0-3) Basophils (%) (Auto) 1% (0-3) Neutrophils # (Auto) 2.7x10^3uL (1.8-7.7) Lymphocytes # (Auto) 1.9x10^3/uL (1.0-4.8) Monocytes # (Auto) 0.4x10^3/uL (0.0-1.1) Eosinophils # (Auto) 0.1x10^3/uL (0.0-0.7) Basophils # (Auto) 0.0x10^3/uL (0.0-0.2) Sodium Level 139mmol/L (136-145) Potassium Level 2.9mmol/L (3.5-5.1) Chloride Level 102mmol/L (98-107) Carbon Dioxide Level 31mmol/L (21-32) Anion Gap 6 (6-14) Blood Urea Nitrogen 9mg/dL (7-20) Creatinine 0.5mg/dL (0.6-1.0) Estimated GFR (Cockcroft-Gault) 123.4 Glucose Level 92mg/dL (70-99) Calcium Level 9.1mg/dL (8.5-10.1) Magnesium Level 2.0mg/dL (1.8-2.4) Laboratory Tests Test 02/10/17 06:25 White Blood Count 5.1x10^3/uL (4.0-11.0) Red Blood Count 3.96x10^6/uL (3.50-5.40) Hemoglobin 11.5g/dL (12.0-15.5) Hematocrit 34.2% (36.0-47.0) Mean Corpuscular Volume 86fL (79-100) Mean Corpuscular Hemoglobin 29pg (25-35) Mean Corpuscular Hemoglobin Concent 34g/dL (31-37) Red Cell Distribution Width 15.1% (11.5-14.5) Platelet Count 208x10^3/uL (140-400) Neutrophils (%) (Auto) 54% (31-73) Lymphocytes (%) (Auto) 37% (24-48) Monocytes (%) (Auto) 7% (0-9) Eosinophils (%) (Auto) 2% (0-3) Basophils (%) (Auto) 1% (0-3) Neutrophils # (Auto) 2.7x10^3uL (1.8-7.7) Lymphocytes # (Auto) 1.9x10^3/uL (1.0-4.8) Monocytes # (Auto) 0.4x10^3/uL (0.0-1.1) Eosinophils # (Auto) 0.1x10^3/uL (0.0-0.7) Basophils # (Auto) 0.0x10^3/uL (0.0-0.2) Sodium Level 139mmol/L (136-145) Potassium Level 2.9mmol/L (3.5-5.1) Chloride Level 102mmol/L (98-107) Carbon Dioxide Level 31mmol/L (21-32) Anion Gap 6 (6-14) Blood Urea Nitrogen 9mg/dL (7-20) Creatinine 0.5mg/dL (0.6-1.0) Estimated GFR (Cockcroft-Gault) 123.4 Glucose Level 92mg/dL (70-99) Calcium Level 9.1mg/dL (8.5-10.1) Magnesium Level 2.0mg/dL (1.8-2.4) Medications Current Medications Fentanyl Citrate (Fentanyl 2ml Vial) 50 mcg PRN Q15MIN PRN IV PAIN GREATER THAN 3/10 Last administered on 02/07/17 21:31; Start 02/07/17 at 21:00; Stop at 00:00; Status DC Ondansetron HCl (Zofran) 4 mg PRN Q8HRS PRN IV NAUSEA/VOMITING; Start 02/07/17 at 22:00; Stop 02/08/17 at 21:59; Status DC Fentanyl Citrate (Fentanyl 2ml Vial) 50 mcg PRN Q2HR PRN IV SEVERE PAIN Last administered on 02/08/17 20:36; Start 02/07/17 at 22:00; Stop 02/08/17 at 21:59 ; Status DC Acetaminophen (Tylenol) 650 mg PRN Q4HRS PRN PO FEVER Last administered on 02/08 08:58; Start 02/07/17 at 22:00; Stop 02/08/17 at 21:59; Status DC Pneumococcal Polyvalent Vaccine (Pneumovax 23) 0.5 ml ONCE ONCE VAX IM Last administered on 02/08/17 11:52; Start 02/08/17 at 09:00; Stop 02/08/17 at 09:01 ; Status DC Amlodipine Besylate (Norvasc) 10 mg DAILY PO Last administered on 02/10/17 08: 21; Start 02/08/17 at 09:00 Atorvastatin Calcium (Lipitor) 40 mg HS PO Last administered on 02/09/17 20:59 ; Start 02/08/17 at 21:00 Clonazepam (Klonopin) 1 mg BID PO Last administered on 02/10/17 08:23; Start at 01:30 Docusate Sodium (Colace) 100 mg DAILY PO Last administered on 02/10/17 08:29; Start 02/08/17 at 09:00 Hydrochlorothiazide (Hydrodiuril) 25 mg DAILY PO Last administered on 02/10/17 08:21; Start 02/08/17 at 09:00 Acetaminophen/ Hydrocodone Bitart (Lortab 5/325) 1 tab PRN Q12HR PRN PO MODERATE PAIN Last administered on 02/10/17 08:24; Start 02/08/17 at 00:45; Stop 02/10/17 at 10:58; Status DC Potassium Chloride (Klor-Con) 20 meq DAILY PO Last administered on 02/10/17 08: 24; Start 02/08/17 at 09:00 Non-Formulary Medication 70 mg QM PO ; Start 02/09/17 at 16:00; Status UNV Bupropion HCl (Wellbutrin Xl) 300 mg DAILY PO Last administered on 02/10/17 08: 21; Start 02/08/17 at 09:00 Vitamin D (Vitamin D3) 5,000 unit WEEKLY PO Last administered on 02/08/17 08: 48; Start 02/08/17 at 09:00 Losartan Potassium (Cozaar) 100 mg DAILY PO Last administered on 02/10/17 08:23 ; Start 02/08/17 at 09:00 Lurasidone HCl (Latuda) 120 mg DAILYWSUP PO Last administered on 02/09/17 16:20 ; Start 02/08/17 at 17:00 Non-Formulary Medication 1 each HS PO ; Start 02/08/17 at 21:00; Status UNV Sumatriptan Succinate (Imitrex) 100 mg PRN Q2HR PRN PO MIGRAINE HEADACHE; Start 02/08/17 at 01:15 Lubiprostone (Amitiza) 24 mcg BIDWMEALS PO Last administered on 02/10/17 08:23 ; Start 02/08/17 at 08:00 Bupropion HCl (Wellbutrin) 300 mg DAILY PO ; Start 02/08/17 at 09:00; Status UNV Senna/Docusate Sodium (Senna Plus) 1 tab DAILY PO Last administered on 08:30; Start 02/08/17 at 09:00 Tizanidine HCl (Zanaflex) 4 mg PRN Q8HRS PRN PO MUSCLE SPASMS Last administered on 02/09/17 16:27; Start 02/08/17 at 00:45 Zolpidem Tartrate (Ambien) 5 mg PRN QHS PRN PO INSOMNIA Last administered on 21:01; Start 02/08/17 at 00:45 Enoxaparin Sodium (Lovenox 30mg Syringe) 30 mg Q24H SQ Last administered on 11:52; Start 02/08/17 at 10:30; Stop 02/08/17 at 14:24; Status DC Enoxaparin Sodium (Lovenox 40mg Syringe) 40 mg Q24H SQ Last administered on 02/10 08:25; Start 02/09/17 at 09:00 Fentanyl (Duragesic 12mcg/ Hr Patch) 1 patch Q3DAYS TD Last administered on 02/09 14:11; Start 02/09/17 at 13:30 Potassium Chloride (Klor-Con) 40 meq 1X ONCE PO Last administered on 02/10/17 08:22; Start 02/10/17 at 08:30; Stop 02/10/17 at 08:31; Status DC Potassium Chloride (Klor-Con) 40 meq 1X ONCE PO Last administered on 02/10/17 12:11; Start 02/10/17 at 11:15; Stop 02/10/17 at 11:16; Status DC Acetaminophen/ Hydrocodone Bitart (Lortab 5/325) 1 tab PRN Q6HRS PRN PO MODERATE PAIN; Start 02/10/17 at 12:00 Active Scripts Active Naproxen 375 Mg Tablet 375 Mg PO BID PRN Reported Stool Softener (Docusate Sodium) 100 Mg Capsule 100 Mg PO DAILY Melatonin 5 Mg Tablet (Melatonin/Pyridoxine Hcl (B6)) 1 Each Tablet 1 Each PO HS Latuda (Lurasidone Hcl) 120 Mg Tablet 120 Mg PO DAILYWSUP Bupropion Xl (Bupropion Hcl) 300 Mg Tab.er.24h 300 Mg PO DAILY Alendronate Sodium 70 Mg Tablet 70 Mg PO WEEKLY Ibuprofen 600 Mg Tablet 600 Mg PO Q6H PRN Hydrocodone-Apap 5-325 (Hydrocodone Bit/Acetaminophen) 1 Each Tablet 1 Tab PO PRN Q6HRS PRN Vitamin D-3 (Cholecalciferol (Vitamin D3)) 2,000 Unit Tablet 5,000 Unit PO WEEKLY Losartan Potassium 100 Mg Tablet 100 Mg PO DAILY Amlodipine Besylate 10 Mg Tablet 10 Mg PO DAILY Atorvastatin Calcium 40 Mg Tablet 40 Mg PO DAILY Hydrochlorothiazide Capsule (Hydrochlorothiazide) 12.5 Mg Capsule 25 Mg PO DAILY Potassium Chloride 20 Meq Tab.er.prt 20 Meq PO DAILY Maxalt (Rizatriptan Benzoate) 10 Mg Tablet 10 Mg PO PRN PRN Clonazepam 1 Mg Tablet 1 Mg PO Vitals/I & O Vital Sign - Last 24 Hours 02/09/17 02/09/17 02/09/17 02/09/17 15:00 18:11 19:00 20:00 Temp 98.0 98.8 98.0 98.8 Pulse 87 83 Resp 18 14 20 B/P 106/56 108/63 Pulse Ox 92 92 O2 Delivery Room Air Room Air Room Air Room Air 02/09/17 02/09/17 02/10/17 02/10/17 20:59 23:00 03:00 07:00 Temp 98.4 97.8 98.4 97.8 Pulse 76 76 Resp 18 20 18 B/P 106/65 111/74 Pulse Ox 93 90 O2 Delivery Room Air Room Air Room Air Room Air 02/10/17 02/10/17 02/10/17 02/10/17 08:21 08:23 08:24 09:24 Pulse 76 76 B/P 111/74 111/74 Pulse Ox 90 O2 Delivery Room Air Room Air O2 Flow Rate 2.0 02/10/17 11:03 Temp 97.8 97.8 Pulse 85 Resp 18 B/P 108/68 Pulse Ox 93 O2 Delivery Room Air Intake and Output 02/09/17 02/09/17 02/10/17 15:00 23:00 07:00 Intake Total 340 ml 200 ml 0 ml Output Total 12 ml Balance 340 ml 188 ml 0 ml MAYE YEUNG MD February 10, 2017 14:28
[2017-02-10] MEDS: tiZANidine 4 MG TABLET. PO PRN (14:58)
[2017-02-10 14:59] VITALS: BP 110/72
[2017-02-10] MEDS: LURASIDONE 40 MG TABLET. PO SCH (17:07)
[2017-02-10 19:00] VITALS: BP 104/62
[2017-02-10] MEDS: ZOLPIDEM 5 MG TABLET. PO PRN (20:20)
[2017-02-10] MEDS: ATORVASTATIN CALCIUM 40 MG TABLET. PO SCH (20:20)
[2017-02-10 23:00] VITALS: BP 117/68
[2017-02-11 06:41] LABS: CREATININE 0.7 mg/dL (0.6-1.0); GFR 83.7; POTASSIUM 4.1 mmol/L (3.5-5.1)
[2017-02-11 07:00] VITALS: BP 131/80
[2017-02-11] MEDS: DOCUSATE SODIUM 100 MG CAPSULE. PO SCH (07:59)
[2017-02-11] MEDS: buPROPion XL 150 MG TAB.ER.24H. PO SCH (07:59)
[2017-02-11] MEDS: ENOXAPARIN 40 MG/0.4 ML SYRINGE. SQ SCH (07:59)
[2017-02-11] MEDS: LUBIPROSTONE 8 MCG CAPSULE PO SCH (07:59)
[2017-02-11] MEDS: HYDROCODONE/APAP 5/325MG TABLET. PO PRN (07:59)
[2017-02-11] MEDS: LOSARTAN POTASSIUM 50 MG TABLET. PO SCH (08:00)
[2017-02-11] MEDS: SENNOSIDES/DOCUSATE 8.6/50MG TABLET. PO SCH (08:00)
[2017-02-11] MEDS: HYDROCHLOROTHIAZIDE 25 MG TABLET PO SCH (08:00)
[2017-02-11] MEDS: amLODIPine BESYLATE 10 MG TABLET PO SCH (08:00)
[2017-02-11] MEDS: POTASSIUM CHLORIDE 20 MEQ TABLET.ER. PO SCH (08:01)
[2017-02-11] MEDS: clonazePAM 1 MG TABLET PO SCH (08:01)
[2017-02-11] MEDS: tiZANidine 4 MG TABLET. PO PRN (10:27)
[2017-02-11 10:51] VITALS: BP 111/69
--- NOTE | 2017-02-11 12:53 | PDOC3 ---
Discharge Summary Visit Information Date of Admission: Feb 07, 2017 Date of Discharge: February 11, 2017 Admitting Diagnosis Comment: 1. Uswnp-tc-[id number] back pain with fall at home.: started on Fantasy patch with [place], PT/OT, 2. Physical debility difficult to perform ADLs and IADLs.: need SNU placement, not stable to go home, consult Dr Frankel 3. Hypertension. 4. Hyperlipidemia. 5. Schizophrenia. 6. hypokalemia Final Diagnosis Problems Medical Problems: (1) ESRD needing dialysis Status: Acute (2) Generalized weakness Status: Acute (3) Lower back pain Status: Acute Brief Hospital Course Allergies Allergies Coded Allergies Type Severity Reaction Last Updated Verified No Known Drug Allergies 09/19/15 No Vital Signs Vital Signs Date Time Temp Pulse Resp B/P Pulse Ox O2 Delivery O2 Flow Rate FiO2 02/11/17 10:51 97.7 82 18 111/69 94 97.7 02/11/17 08:50 Room Air 2.0 Lab Results Laboratory Tests Test 02/10/17 06:25 02/11/17 05:55 White Blood Count 5.1x10^3/uL (4.0-11.0) Red Blood Count 3.96x10^6/uL (3.50-5.40) Hemoglobin 11.5g/dL (12.0-15.5) Hematocrit 34.2% (36.0-47.0) Mean Corpuscular Volume 86fL (79-100) Mean Corpuscular Hemoglobin 29pg (25-35) Mean Corpuscular Hemoglobin Concent 34g/dL (31-37) Red Cell Distribution Width 15.1% (11.5-14.5) Platelet Count 208x10^3/uL (140-400) Neutrophils (%) (Auto) 54% (31-73) Lymphocytes (%) (Auto) 37% (24-48) Monocytes (%) (Auto) 7% (0-9) Eosinophils (%) (Auto) 2% (0-3) Basophils (%) (Auto) 1% (0-3) Neutrophils # (Auto) 2.7x10^3uL (1.8-7.7) Lymphocytes # (Auto) 1.9x10^3/uL (1.0-4.8) Monocytes # (Auto) 0.4x10^3/uL (0.0-1.1) Eosinophils # (Auto) 0.1x10^3/uL (0.0-0.7) Basophils # (Auto) 0.0x10^3/uL (0.0-0.2) Sodium Level 139mmol/L (136-145) 137mmol/L (136-145) Potassium Level 2.9mmol/L (3.5-5.1) 4.1mmol/L (3.5-5.1) Chloride Level 102mmol/L (98-107) 102mmol/L (98-107) Carbon Dioxide Level 31mmol/L (21-32) 31mmol/L (21-32) Anion Gap 6 (6-14) 4 (6-14) Blood Urea Nitrogen 9mg/dL (7-20) 12mg/dL (7-20) Creatinine 0.5mg/dL (0.6-1.0) 0.7mg/dL (0.6-1.0) Estimated GFR (Cockcroft-Gault) 123.4 83.7 Glucose Level 92mg/dL (70-99) 90mg/dL (70-99) Calcium Level 9.1mg/dL (8.5-10.1) 9.0mg/dL (8.5-10.1) Magnesium Level 2.0mg/dL (1.8-2.4) Laboratory Tests Test 02/11/17 05:55 Sodium Level 137mmol/L (136-145) Potassium Level 4.1mmol/L (3.5-5.1) Chloride Level 102mmol/L (98-107) Carbon Dioxide Level 31mmol/L (21-32) Anion Gap 4 (6-14) Blood Urea Nitrogen 12mg/dL (7-20) Creatinine 0.7mg/dL (0.6-1.0) Estimated GFR (Cockcroft-Gault) 83.7 Glucose Level 90mg/dL (70-99) Calcium Level 9.0mg/dL (8.5-10.1) Brief Hospital Course Ms. Field is a 66 old female admitted for acute on chronic lumbago. NO need for surgical intervention, PT recs HH. NO real change in home emds, added some pain meds Pt seen and examined Dc 32 mins, HH dispo Proc none Needed some encouragement to be dcd today Discharge Information Condition at Discharge: Improved, Stable Disposition/Orders: D/C to Home w/ HH Scheduled Alendronate Sodium (Alendronate Sodium) 70 MG PO WEEKLY (Reported) Amlodipine Besylate (Amlodipine Besylate) 10 MG PO DAILY (Reported) Atorvastatin Calcium (Atorvastatin Calcium) 40 MG PO DAILY (Reported) Bupropion Hcl (Bupropion Xl) 300 MG PO DAILY (Reported) Cholecalciferol (Vitamin D3) (Vitamin D-3) 5,000 UNIT PO WEEKLY (Reported) Docusate Sodium (Stool Softener) 100 MG PO DAILY (Reported) Hydrochlorothiazide (Hydrochlorothiazide Capsule ) 25 MG PO DAILY (Reported) Losartan Potassium (Losartan Potassium) 100 MG PO DAILY (Reported) Lurasidone Hcl (Latuda) 120 MG PO DAILYWSUP (Reported) Melatonin/Pyridoxine Hcl (B6) (Melatonin 5 Mg Tablet) 1 EACH PO HS (Reported) Potassium Chloride (Potassium Chloride) 20 MEQ PO DAILY (Reported) Scheduled PRN Hydrocodone Bit/Acetaminophen (Hydrocodone-Apap 5-325 ) 1 TAB PO PRN Q6HRS PRN PRN PAIN (Reported) Ibuprofen (Ibuprofen) 600 MG PO Q6H PRN PRN PAIN (Reported) Naproxen (Naproxen) 375 MG PO BID PRN PRN PAIN Rizatriptan Benzoate (Maxalt) 10 MG PO PRN PRN PRN MIGRAINE HEADACHE (Reported) Miscellaneous Medications Clonazepam (Clonazepam) 1 MG PO (Reported) TONI PRICE MD February 11, 2017 12:53
== END 2017-02-11 14:55 | disposition home health service (06) | DRG 551 ==
LOC: ER 19:42 → 5 SOUTH 21:24
PROVIDERS: ADMIT Internal Medicine; ATTEND Internal Medicine
DX: M54.9 Dorsalgia, unspecified (principal); N18.6 End stage renal disease; I12.0 Hypertensive chronic kidney disease with stage 5 chronic kidney disease or end stage renal disease; F31.9 Bipolar disorder, unspecified; W19.XXXA Unspecified fall, initial encounter; G43.909 Migraine, unspecified, not intractable, without status migrainosus; M81.0 Age-related osteoporosis without current pathological fracture; E78.5 Hyperlipidemia, unspecified; G89.29 Other chronic pain; Y92.009 Unspecified place in unspecified non-institutional (private) residence as the place of occurrence of the external cause; M54.5 Low back pain; E87.6 Hypokalemia; E78.00 Pure hypercholesterolemia, unspecified; F20.9 Schizophrenia, unspecified; R53.1 Weakness; Z90.710 Acquired absence of both cervix and uterus; Z99.2 Dependence on renal dialysis
CPT/HCPCS: 36415; 71010; 72131; 80048; 80053; 81001; 83735; 83880; 84443; 84484; 85027; 85610; 85730; 90732; 93005; 96374; J1650; J3010; 97116; 97535; 99285-25

== ENCOUNTER 2017-02-13 19:25 | Emergency (ER) | payer MEDICAID, OTHER ==
[2017-02-13] MEDS ORDERED: HYDROmorphone 2 MG/ML VIAL IV PRN (19:45)
[2017-02-13] MEDS ORDERED: IV NORMAL SALINE 500ML BAG 500 ML IV ONE (19:45)
[2017-02-13] MEDS ORDERED: ONDANSETRON PF 4 MG/2 ML VIAL. IV ONE (19:45)
--- NOTE | 2017-02-13 19:51 | PHYS DOC ---
Past Medical History Past Medical History: Bipolar, High Cholesterol, Hypertension, Schizophrenia Past Surgical History: Hysterectomy, Tonsillectomy Additional Past Surgical Histo: bladder tuck surgery, breast reduction, back sx , Alcohol Use: None Drug Use: None Adult General Chief Complaint Chief Complaint: low back pain HPI HPI 66-year-old female presenting the emergency department today with lumbar back pain after falling. She sustained a mechanical fall. He denies loss of consciousness or head trauma. She denies being on blood thinners. Her pain is sharp moderate nonradiating and without alleviating factors. She denies fevers or chills. Onset today. Location low back. Duration constant. No alleviating factors. Review of systems is negative for perineal paresthesias, urinary or fecal incontinence, urinary retention. She denies numbness weakness or tingling. All other review of systems is negative unless otherwise noted in history of present illness. Review of Systems Review of Systems SEE ABOVE. Current Medications Current Medications Current Medications Medications (Trade) Dose Ordered Sig/Saji Start Time Stop Time Status Last Admin Dose Admin Hydromorphone HCl (Dilaudid) 1 mg PRN Q1HR PRN 02/13/17 19:45 02/13/17 20:26 1 MG Ondansetron HCl (Zofran) 4 mg 1X ONCE 02/13/17 19:45 02/13/17 19:46 DC 02/13/17 20:25 4 MG Sodium Chloride 500 ml @ 500 mls/hr 1X ONCE 02/13/17 19:45 02/13/17 20:44 02/13/17 20:26 500 MLS/HR Allergies Allergies Allergies Coded Allergies Type Severity Reaction Last Updated Verified No Known Drug Allergies 09/19/15 No Physical Exam Physical Exam Constitutional: Well developed, well nourished, no acute distress, non-toxic appearance. HENT: Normocephalic, atraumatic, bilateral external ears normal, oropharynx moist, no oral exudates, nose normal. Eyes: PERRLA, EOMI, conjunctiva normal, no discharge. [] Neck: Normal range of motion, no tenderness, supple, no stridor. Cardiovascular:Heart rate regular rhythm, no murmur [] Lungs & Thorax: Bilateral breath sounds clear to auscultation. no crepitus to palpation of the chest wall. Abdomen: Bowel sounds normal, soft, no tenderness, no masses, no pulsatile masses. [] Skin: Warm, dry, no erythema, no rash. Back: Mild paraspinal tenderness around the lumbar region and sacrum. No ecchymosis lacerations or abrasions. Extremities: Normal range of motion of the patient's right and left hip. No pain with passive range of motion. Normal neurovascular status in the next room is bilaterally. Otherwise nontender knee and ankle exams bilaterally. No tenderness, no cyanosis, no clubbing, ROM intact, no edema. Neurologic: Alert and oriented X 3, normal motor function, normal sensory function, no focal deficits noted. [] Psychologic: Affect normal, judgement normal, mood normal. Current Patient Data Vital Signs Vital Signs Date Time Temp Pulse Resp B/P (MAP) Pulse Ox O2 Delivery O2 Flow Rate FiO2 02/13/17 20:26 Room Air 02/13/17 19:53 98.3 98 14 120/69 (86) 93 98.3 EKG EKG [] Radiology/Procedures Radiology/Procedures [] Course & Med Decision Making Course & Med Decision Making Pertinent Labs and Imaging studies reviewed. (See chart for details) [] 66-year-old female presenting to the emergency department today after sustaining a mechanical fall. Patient and low back pain primarily. IV pain and nausea medications given. X-rays of the lumbar spine and pelvis were obtained which were unremarkable. The patient was able to ambulate in the emergency department without difficulty. She had no pain with range of motion of the hips bilaterally. The patient was then discharged home in stable condition to follow up with their primary care physician over the next 2-3 days. They were to return if their symptoms worsened or if they were concerned for any reason. Face -to-face discharge instructions and return precautions were given. Patient's questions were answered to their satisfaction. Patient is comfortable plan. Dragon Disclaimer Dragon Disclaimer This electronic medical record was generated, in whole or in part, using a voice recognition dictation system. Departure Departure Impression: Primary Impression: Lumbar back pain Disposition: 01 HOME, SELF-CARE Condition: STABLE Referrals: FEDERICA SAENZ MD (PCP) Patient Instructions: Back Pain, Adult Additional Instructions: Thank you for allowing us to participate in your care today. Followup with your primary care physician in 3 days if your symptoms do not improve. If you do not have a primary care provider you can ask for a list of our primary care providers. Return to the emergency department you have any new or concerning findings. This should be evaluated by the primary care physician and any necessary consulting services for continued management within a few days after discharge. Return to emergency room if you have any new or concerning symptoms including but not limited to fever, chills, nausea, vomiting, intractable pain, any new rashes, chest pain, shortness of air, uncontrolled bleeding, difficulty breathing, and/or vision loss. You may have been prescribed medication that can change in your level of thinking and ability to operate machinery. These medications include hydrocodone and Ativan. Also, Benadryl has been known to do this as well. Be sure to check with your pharmacist and ask if the medications you've prescribed can affect your level of consciousness. I recommend not operating heavy machinery or driving while on medication such as these. Scripts Morphine Sulfate (MORPHINE SULFATE) 15 Mg Tablet 1 TAB PO PRN Q6-8HRS Y for SEVERE PAIN, #8 TAB Prov: JAMI MANDEL MD 02/13/17 Problem Qualifiers Primary Impression: Lumbar back pain Chronicity: acute Back pain laterality: bilateral Sciatica presence: without sciatica Qualified Codes: M54.5 - Low back pain JAMI MANDEL MD February 13, 2017 19:51
[2017-02-13 19:53] VITALS: BP 120/69
[2017-02-13] MEDS ORDERED: MORP15TA PO (20:40)
--- NOTE | 2017-02-14 08:59 | RAD ---
Indication fall, pain. AP and lateral views of the lumbar spine were obtained as well as a coned view targeted to the lumbosacral junction. Kyphoplasty changes are noted at L2. Acute bony finding is not seen. Significant degenerative changes are not apparent on plain films. IMPRESSION: No acute bony finding
--- NOTE | 2017-02-14 09:21 | RAD ---
Indication fall, pain. An AP view of the pelvis was obtained as well as targeted AP and frog leg views of both hips. Kyphoplasty changes are noted at L2. No acute bony finding is seen involving either hip. There are some degenerative changes associated with the left hip. IMPRESSION: No acute bony finding
--- NOTE | 2017-02-14 09:23 | RAD ---
Indication fall, pain. AP and lateral views of the sacrum and coccyx were obtained. No acute bony finding is seen on plain films. If the clinical index of suspicion for fracture remains high additional imaging could be obtained with CT or MRI
[2017-02-15] MEDS ORDERED: TIZA4TAB PO (22:09)
[2017-02-15] MEDS ORDERED: LUBI24CA5 PO (22:09)
== END 2017-02-13 21:55 | disposition home or self-care (01) ==
LOC: ER 19:25
DX: M54.5 Low back pain (principal); E78.00 Pure hypercholesterolemia, unspecified; F20.9 Schizophrenia, unspecified; I10 Essential (primary) hypertension; W19.XXXA Unspecified fall, initial encounter; Y93.89 Activity, other specified; Y92.89 Other specified places as the place of occurrence of the external cause; Y99.8 Other external cause status
CPT/HCPCS: 72100; 72220; 73521; 96361; 96374; 96375; 99285; J1170; J2405; J7040

== ENCOUNTER → 2017-04-30 | Outpatient (CLI) | payer OTHER ==
[2017-02-18 11:00] VITALS: BP 128/77
[~2017-04-30] MED LIST changes: +DOCU-150 PO; -DOCU100C PO; -HYDR-2666 PO; +HYDR-2758 PO; +LUBI24CA7 PO; +MORP15TA PO; +TIZA4TAB PO
[2017-04-30 13:55] LABS: BILIRUBIN,URINE NEGATIVE (NEG); GLUCOSE,URINE NEGATIVE (NEG); NITRITE,URINE NEGATIVE (NEG); PH,URINE 7.5; PROTEIN,URINE NEGATIVE (NEG-TRACE); UROBILINOGEN,URINE 0.2 mg/dL (0.2 mg/dL)
[2017-04-30 14:14] LABS: BACTERIA,URINE FEW /HPF (0-FEW); SQUAMOUS EPITHELIAL CELL,UR OCC /LPF
== END | disposition home or self-care (01) ==
LOC: SPEC 13:24
PROVIDERS: ATTEND Pediatrics
DX: N39.0 Urinary tract infection, site not specified (principal)
CPT/HCPCS: 81001; 87086

== ENCOUNTER → 2017-05-08 | Outpatient (CLI) | payer OTHER ==
[2017-02-18 11:00] VITALS: BP 128/77
[~2017-05-08] MED LIST changes: +REGADENOSON 0.4 MG/5 ML DISP.SYRIN. IV ONE
[2017-05-08 09:32] LABS: ALBUMIN 3.6 g/dL (3.4-5.0); CALCIUM 9.5 mg/dL (8.5-10.1); CHOLESTEROL/HDL RATIO 2.4; CREATININE 0.7 mg/dL (0.6-1.0); GFR 83.7; POTASSIUM 4.1 mmol/L (3.5-5.1); TOTAL BILIRUBIN 0.5 mg/dL (0.2-1.0); TOTAL PROTEIN 7.2 g/dL (6.4-8.2)
[2017-05-08 09:33] LABS: BASO # 0.1 x10^3/uL (0.0-0.2); BASO % 1 % (0-3); EOS % 2 % (0-3); HEMATOCRIT 41.6 % (36.0-47.0); HEMOGLOBIN 13.7 g/dL (12.0-15.5); LYMPH # 1.6 x10^3/uL (1.0-4.8); LYMPH % 22 % (24-48); MEAN CORPUSCULAR HEMOGLOBIN 29 pg (25-35); MEAN CORPUSCULAR HGB CONC 33 g/dL (31-37); MEAN CORPUSCULAR VOLUME 89 fL (79-100); MONO % 5 % (0-9); NEUT % 70 % (31-73); PLATELET COUNT 222 x10^3/uL (140-400); RED BLOOD COUNT 4.67 x10^6/uL (3.50-5.40); RED CELL DISTRIBUTION WIDTH 14.3 % (11.5-14.5); WHITE BLOOD COUNT 7.2 x10^3/uL (4.0-11.0)
--- NOTE | 2017-05-08 19:49 | RAD ---
APPROVED REPORT Imaging Protocol IMAGE PROTOCOL: Rest Tc-99m/stress Tc-99m 1 day Rest: Stress: Viability: Radiopharm.Tc99m DcwxvbnjwHm53c Sestamibi Lamn46eKu 33mCi Duration 15min. 10min. Img Date 05/08/2017 05/08/2017 Inj-Img Bipx48jci. 60min. Rest Admin Site:IV - Left AntecubitalAdministrator:RT Mihaela (R)(N) Stress Admin Site: IV - Left AntecubitalAdministrator: RT Mihaela (R)(N) STRESS DATA End Diast. Vol.62.0mlAv. Heart Yksp820.0bpm End Syst. Vol.18.0mlCO Index BSA0.0L/min Myocardial Acto068.0gEject. Ueqpliuy45.0% Stress Rates Pk. Fill Rate5.60EDV/secLVtime Pk. Fill 152.25msec Pk. Empty Rate5.65ESV/secLVtime Pk. Fhvjh510.61msec 10/14 Pk. Fill1.25EDV/sec Stress Scores Regional WT1.00Summed WT8.00 Regional WM0.00Summed WM1.00 LV Perf. Quant 17 Seg. SSS0.00 17 Seg. SRS0.00 17 Seg. SDS0.00 Stress Defect Extent (% LAD)0.00Rest Defect Extent (% LAD)0.00Rev. Defect Extent (% LAD)0.00 Stress Defect Extent (% LCX) 0.00Rest Defect Extent (% LCX)0.00Rev. Defect Extent (% LCX)0.00 Stress Defect Extent (% RCA)0.00Rest Defect Extent (% RCA)0.00Rev. Defect Extent (% RCA)0.00 Stress Defect Extent (% JOSÉ)0.00Rest Defect Extent (% JOSÉ)0.00Rev. Defect Extent (% JOSÉ)0.00 Conclusion 1. No electrocardiographic changes suggestive of myocardial ischemia with pharmacological stress. 2. No perfusion defects to suggest myocardial ischemia or scar. 3. Normal wall motion and wall thickening with an ejection fraction of 71%. 4. Scan indicates low risk for future cardiac events.
--- NOTE | 2017-05-11 16:00 | CARD ---
APPROVED REPORT EXAM: Two-dimensional and M-mode echocardiogram with Doppler and color Doppler. Other Information Quality : GoodHR: 93bpm Rhythm : NSR INDICATION Short of air Echo Enhancing Agent Indication: Rule Out Septal Defect Agent/Amount Used: Agitated Saline 8mL 2D DIMENSIONS RVDd3.0 (2.9-3.5cm)Left Atrium(2D)2.9 (1.6-4.0cm) IVSd1.0 (0.7-1.1cm)Aortic Root(2D)2.6 (2.0-3.7cm) LVDd3.7 (3.9-5.9cm)LVOT Diameter2.2 (1.8-2.4cm) PWd0.9 (0.7-1.1cm)LVDs2.7 (2.5-4.0cm) FS (%) 27.4 %SV32.1 ml LVEF(%)55.0 (>50%) Aortic Valve AoV Peak Ray.101.5cm/sAoV VTI18.0cm AO Peak GR.4.1mmHgLVOT Peak Ray.89.2cm/s AO Mean GR.3mmHgAVA (VMAX)3.41cm2 Mitral Valve MV E Hfjmeurq46.4cm/sMV E Peak Gr.2mmHg MV DECEL [id number] A Yiowidjy37.3cm/s MV E Mean Gr.1mmHgE/A Ratio0.5 MV A Zaybibhn234hg Pulmonary Valve PV Peak Qoupgxbg552.4cm/s Tricuspid Valve TR P. Tgxtuooe167vs/sTR Peak Gr.25mmHg Pulmonary Vein S1 Ovtoyyus26.7cm/sD2 Ohjorjtp04.3cm/s PVa oskkpfox99rivd LEFT VENTRICLE The left ventricle is normal size. There is normal left ventricular wall thickness. The left ventricu lar systolic function is normal and the ejection fraction is within normal range. The Ejection Fracti on is 55%. There is normal LV segmental wall motion. Transmitral Doppler flow pattern is Grade I-abno rmal relaxation pattern. RIGHT VENTRICLE The right ventricle is normal size. There is normal right ventricular wall thickness. The right ventr icular systolic function is normal. ATRIA The left atrium size is normal. The right atrium size is normal. The atrial septum is aneurysmal. Inj ection of bubbles documented no interatrial shunt. AORTIC VALVE The aortic valve is mildly sclerotic. The aortic valve is trileaflet. MITRAL VALVE Mitral annular calcification is mild. The mitral valve leaflets are thickened. There is no evidence o f mitral valve prolapse. There is no mitral valve stenosis. Doppler and Color Flow revealed no mitral valve regurgitation noted. TRICUSPID VALVE Doppler and Color Flow revealed mild tricuspid regurgitation. The pulmonary artery systolic pressure is estimated at 28 mmHg. There is mild pulmonary hypertension. PULMONIC VALVE The pulmonary valve is not well visualized but appears to opens well. Doppler and Color Flow revealed pulmonic valvular regurgitation. There is no pulmonic valvular stenosis by spectral Doppler. GREAT VESSELS The aortic root is normal in size. The ascending aorta is normal in size. The pulmonary artery is nor mal. The IVC was obscured, unable to assess. PERICARDIAL EFFUSION There is no evidence of significant pericardial effusion. Critical Notification Critical Value: No <Conclusion> The left ventricular systolic function is normal and the ejection fraction is within normal range. The Ejection Fraction is 55%. Transmitral Doppler flow pattern is Grade I-abnormal relaxation pattern. The left atrium size is normal. The right atrium size is normal. The atrial septum is aneurysmal. Injection of bubbles documented no interatrial shunt. The aortic valve is mildly sclerotic. The aortic valve is trileaflet. Mitral annular calcification is mild. The mitral valve leaflets are thickened. Doppler and Color Flow revealed mild tricuspid regurgitation. The pulmonary artery systolic pressure is estimated at 28 mmHg. There is mild pulmonary hypertension. The pulmonary valve is not well visualized but appears to opens well. Doppler and Color Flow revealed pulmonic valvular regurgitation. There is no pulmonic valvular stenosis by spectral Doppler. There is no evidence of significant pericardial effusion.
== END | disposition home or self-care (01) ==
LOC: NM 08:57
PROVIDERS: ATTEND Specialist
DX: R06.02 Shortness of breath (principal); I20.8 Other forms of angina pectoris
CPT/HCPCS: 36415; 78452; 80053; 80061; 84443; 85027; 93017; 96374; 96375; 96376; A9500; C8929; J2785

== ENCOUNTER 2017-07-24 16:42 | Inpatient (IN) | payer OTHER ==
[~2017-07-24] VITALS: Ht 154.9 cm; Wt 45.8 kg
[~2017-07-24 16:42] MED LIST changes: +NAPR-695 PO; -NAPR375T3 PO; -REGADENOSON 0.4 MG/5 ML DISP.SYRIN. IV ONE
[2017-07-24] MEDS ORDERED: LIDOCAINE 1%/EPI 1:100,000 20 ML VIAL. IJ ONE (17:00)
[2017-07-24] MEDS ORDERED: DIPHTH,PERTUSS(ACELL),TET TOX 0.5 ML DISP.SYRIN. VAX IM ONE (17:00)
[2017-07-24] MEDS ORDERED: ONDANSETRON ODT 4 MG TAB.RAPDIS. ONE (17:12)
[2017-07-24] MEDS ORDERED: ONDANSETRON ODT 4 MG TAB.RAPDIS. PO ONE (17:15)
[2017-07-24] MEDS ORDERED: ACETAMINOPHEN 325 MG TABLET. PO ONE (17:15)
--- NOTE | 2017-07-24 18:02 | RAD ---
CT scan of the head without contrast 07/24/2017 Clinical History: Fall from standing position. Left parietal laceration. Technique: Unenhanced, contiguous, 5 mm axial sections were obtained through the head. One or more of the following individualized dose reduction techniques were utilized for this study: 1. Automated exposure control. 2. Adjustment of the mA and/or kV according to patient size. 3. Use of iterative reconstruction technique. Findings: Comparison study is dated 02/15/2017. There is generalized parenchymal atrophy. Areas of decreased attenuation are seen within the periventricular and subcortical white matter of both cerebral hemispheres consistent with areas of small vessel ischemic disease. No acute parenchymal abnormality is seen. No extra-axial fluid collection is noted. No skull fracture is seen. Soft tissue swelling and skin sarah are seen involving the left parietal scalp. Impression: No acute intracranial abnormality is seen. CT scan of the cervical spine without contrast 07/24/2017 Clinical history: Fall with neck pain. Technique: Unenhanced, contiguous, 0.625 mm axial sections were obtained through the cervical spine. Axial, coronal and sagittal reconstructed images were obtained. One or more of the following individualized dose reduction techniques were utilized for this study: 1. Automated exposure control. 2. Adjustment of the mA and/or kV according to patient size. 3. Use of iterative reconstruction technique. Findings: Sagittal and coronal reconstructed images demonstrate mild lateral curvature of the cervical spine convex to the right. Degenerative changes consisting of varying degrees of disc space narrowing, vertebral endplate sclerosis and mild anterior and posterior vertebral body osteophyte formation are seen throughout the cervical disc spaces. No fracture or subluxation of the cervical vertebrae is seen. Degenerative changes are seen involving the uncovertebral and facet joints throughout the cervical disc spaces. Impression: No fracture or subluxation of the cervical vertebra is identified. Electronically signed by: Kaushik Wright MD (07/24/2017 5:59 PM) [facility]
--- NOTE | 2017-07-24 18:15 | PHYS DOC ---
Past Medical History Past Medical History: Anxiety, Bipolar, Depression, High Cholesterol, Hypertension, Schizophrenia, Other Additional Past Medical Histor: CHRONIC PAIN,PENTIC,FUCH'S DYSTROPHY, OSTEOPOROSIS Past Surgical History: Hysterectomy, Tonsillectomy Additional Past Surgical Histo: bladder tuck surgery, breast reduction, back sx , Alcohol Use: None Drug Use: None Adult General Chief Complaint Chief Complaint: MECHANICAL FALL HPI HPI Patient is a 66 year old female brought from home by EMS after a fall. The patient states that her socks were slippery or she tripped over her socks, she fell in the bathroom and struck her head on the shower garcia. She was not able to ambulate after the fall. She pushed her button to call EMS. Patient normally ambulates with a walker. Patient denies loss of consciousness. She does have a bit of a headache at this time. She denies any blood thinners. PCP Dr. Niharika Cazares Review of Systems Review of Systems Constitutional: Denies fever or chills [] HENT: Denies nasal congestion or sore throat [] Respiratory: Denies shortness of breath [] Cardiovascular: Denies cardiac sounding chest pain GI: Complains of mild nausea Musculoskeletal: She has quite a bit of chronic back pain, states there is nothing new at this time Neurologic: She complains of a headache Current Medications Current Medications Current Medications Medications (Trade) Dose Ordered Sig/Saji Start Time Stop Time Status Last Admin Dose Admin Acetaminophen (Tylenol) 650 mg 1X ONCE 07/24/17 17:15 07/24/17 17:16 DC 07/24/17 17:14 650 MG Diphtheria/ Tetanus/Acell Pertussis (Boostrix) 0.5 ml ONCE ONCE 07/24/17 17:00 07/24/17 17:56 DC Lidocaine/ Epinephrine (Xylocaine 1%-Epi 1:100,000) 20 ml 1X ONCE 07/24/17 17:00 07/24/17 17:01 DC 07/24/17 17:01 20 ML Ondansetron HCl (Zofran Odt) 4 mg STK-MED ONCE 07/24/17 17:12 07/24/17 17:13 DC Allergies Allergies Physical Exam Physical Exam Constitutional: Well developed, well nourished, no acute distress, non-toxic appearance. Alert, mentating normally, warm and dry. HENT: There is a 3 cm scalp laceration in the left parietal area that has been bandaged by EMS, bilateral external ears normal, oropharynx moist, no oral exudates, nose normal. [] Eyes: conjunctiva normal, no discharge. [] Neck: Normal range of motion, no tenderness, supple, no stridor. [] Cardiovascular:Heart rate regular rhythm, no murmur [] Lungs & Thorax: Bilateral breath sounds clear to auscultation [] Skin: Warm, dry, no erythema, no rash. [] Extremities: No tenderness, no cyanosis, no clubbing, ROM intact, no edema. [] Neurologic: Alert and oriented X 3, normal motor function, no focal deficits noted. [] Current Patient Data Vital Signs Vital Signs Date Time Temp Pulse Resp B/P (MAP) Pulse Ox O2 Delivery O2 Flow Rate FiO2 07/24/17 18:30 78 20 97 07/24/17 16:42 98.8 149/86 (107) Room Air 98.8 EKG EKG [] Radiology/Procedures Radiology/Procedures CT scan of the head and cervical spine read by the radiologist. No acute findings. Thoracolumbar spine AP and lateral read by me. I do not see a definite acute fracture. Previous vertebral plasty noted.[] Procedure: Repair of left parietal scalp laceration measuring 3 cm The laceration was anesthetized with lidocaine 1% with epi. The laceration was irrigated with normal saline using a splash shield The laceration was explored digitally and does not extend to the galea The laceration was closed with 6 surgical sarah. Good result. The patient tolerated the procedure well. Course & Med Decision Making Course & Med Decision Making Pertinent Labs and Imaging studies reviewed. (See chart for details) 66-year-old female who had a mechanical fall at home and struck her head with a scalp laceration. The scalp laceration was repaired. CT scan of the head and cervical spine negative for acute findings. I asked ED nursing staff to give the patient a trial of ambulation, and the patient was not able to stand unassisted and weight-bear at all. Her back was hurting her too much. At that time, thoracolumbar x-rays were obtained and I do not see acute fracture. However, the patient lives alone and ambulates independently using a walker, but she is not able to do this whatsoever at this time. I believe the patient is not safe for discharge. I discussed with her admitting her to the hospital for possible further evaluation, treatment, she may need to be discharged to a rehabilitation facility prior to being able to go home. Patient is agreeable to that. I discussed the case with Dr. Valencia, [facility] medicine, she will admit the patient. I wrote bridge orders. We agreed the patient will need an inpatient hospitalization. [] Dragon Disclaimer Dragon Disclaimer This electronic medical record was generated, in whole or in part, using a voice recognition dictation system. Departure Departure Impression: Primary Impression: Scalp laceration Additional Impressions: Head injury Fall Disposition: 09 ADMITTED INPATIENT Admitting Physician: Janel Valencia Condition: STABLE Referrals: NIHARIKA CAZARES MD (PCP) Problem Qualifiers SARAH FULTON MD Jul 24, 2017 18:15
[2017-07-24] MEDS ORDERED: PROCHLORPERAZINE 25 MG SUPP.RECT. PR PRN (19:00)
[2017-07-24] MEDS ORDERED: MAG HYDROX/ALUMINUM HYD/SIMETH 30 ML ORAL.SUSP PO PRN (19:00)
[2017-07-24] MEDS ORDERED: KETOROLAC 15 MG/ML VIAL. IV PRN (19:00)
[2017-07-24] MEDS ORDERED: BISACODYL 10 MG SUPP.RECT. PR PRN (19:00)
[2017-07-24] MEDS ORDERED: MAGNESIUM HYDROXIDE 2,400 MG/30 ML ORAL.SUSP. PO PRN (19:00)
[2017-07-24] MEDS ORDERED: PROCHLORPERAZINE 10 MG/2 ML VIAL. IV PRN (19:00)
--- NOTE | 2017-07-24 19:13 | PDOC1 ---
History and Physical Date of Admission Date of Admission DATE: 07/24/17 TIME: 19:03 Identification/Chief Complaint Chief Complaint back pain after a fall Problems: Source Source: Caregiver, Chart review, Patient History of Present Illness History of Present Illness Very pleasant 66 y.o female who lives alone at home and ambulates with a 4 wheeled walker all the time, has a brother and son nearby but "they have their own lives" slipped and fell in the bathroom today while wearing non skid socks, She has visible shakes as she reaches out for her home meds list from her purse, She struck her head, neg CT ehad and neck but back hurts. She needed 6-7 sarah on her left scalp area, top part, She is known to funmilayo bruce January when I admitted her for falls too and T12 fx, She is agreeable to SNU if needed, has been to [facility] and [facility] lately - April [facility]. Xray thoraco lumbar spine pending, basic labs pending On bisphosphonate [facility] Last saw PCP Hans Reyes 3 weeks a go for wellness check up, Mentioned a "flap in her echo" that PCP is otherwise monitoring, Past Medical History Cardiovascular: HTN, Hyperlipidemia CENTRAL NERVOUS SYSTEM: Migraine Psych: Bipolar, Schizophrenia Musculoskeletal: low back pain Endocrine: Osteoporosis Past Surgical History Past Surgical History: Tonsillectomy, Hysterectomy, Other Family History Family History: No Significant Social History Smoke: No ALCOHOL: none Drugs: None Current Problem List Problem List Problems Medical Problems: (1) Fall Status: Acute (2) Head injury Status: Acute (3) Scalp laceration Status: Acute Problems: Current Medications Current Medications Current Medications Diphtheria/ Tetanus/Acell Pertussis (Boostrix) 0.5 ml ONCE ONCE VAX IM ; Start 07/24/17 at 17:00; Stop 07/24/17 at 17:56; Status DC Lidocaine/ Epinephrine (Xylocaine 1%-Epi 1:100,000) 20 ml 1X ONCE IJ Last administered on 07/24/17 17:01; Start 07/24/17 at 17:00; Stop 07/24/17 at 17 :01; Status DC Ondansetron HCl (Zofran Odt) 4 mg 1X ONCE PO Last administered on 07/24/17 17:15; Start 07/24/17 at 17:15; Stop 07/24/17 at 17:16; Status DC Acetaminophen (Tylenol) 650 mg 1X ONCE PO Last administered on 07/24/17t 17: 14; Start 07/24/17 at 17:15; Stop 07/24/17 at 17:16; Status DC Ondansetron HCl (Zofran Odt) 4 mg STK-MED ONCE .ROUTE ; Start 07/24/17 at 17:12 ; Stop 07/24/17 at 17:13; Status DC Active Scripts Active Morphine Sulfate 15 Mg Tablet 1 Tab PO PRN Q6-8HRS PRN Naproxen 375 Mg Tablet 375 Mg PO BID PRN Reported Tizanidine Hcl 4 Mg Tablet 4 Mg PO PRN Q8HRS PRN Amitiza (Lubiprostone) 24 Mcg Capsule 24 Mcg PO BID Stool Softener (Docusate Sodium) 100 Mg Capsule 100 Mg PO DAILY Melatonin 5 Mg Tablet (Melatonin/Pyridoxine Hcl (B6)) 1 Each Tablet 1 Each PO HS Latuda (Lurasidone Hcl) 120 Mg Tablet 120 Mg PO DAILYWSUP Bupropion Xl (Bupropion Hcl) 300 Mg Tab.er.24h 300 Mg PO DAILY Alendronate Sodium 70 Mg Tablet 70 Mg PO WEEKLY Ibuprofen 600 Mg Tablet 600 Mg PO Q6H PRN Hydrocodone-Apap 5-325 (Hydrocodone Bit/Acetaminophen) 1 Each Tablet 1 Tab PO PRN Q6HRS PRN Vitamin D-3 (Cholecalciferol (Vitamin D3)) 2,000 Unit Tablet 5,000 Unit PO WEEKLY Losartan Potassium 100 Mg Tablet 100 Mg PO DAILY Amlodipine Besylate 10 Mg Tablet 10 Mg PO DAILY Atorvastatin Calcium 40 Mg Tablet 40 Mg PO DAILY Hydrochlorothiazide Capsule (Hydrochlorothiazide) 12.5 Mg Capsule 25 Mg PO DAILY Potassium Chloride 20 Meq Tab.er.prt 20 Meq PO DAILY Maxalt (Rizatriptan Benzoate) 10 Mg Tablet 10 Mg PO PRN PRN Clonazepam 1 Mg Tablet 1 Mg PO BID Allergies Allergies: Coded Allergies: No Known Drug Allergies (Unverified , 09/19/15) ROS General: YES: Fatigue, Malaise, Appetite (dec PO), Other (inc weakness) PSYCHOLOGICAL ROS: YES: Depression Eyes: No Blurry vision, No Decreased vision, No Double vision, No Dry eyes, No Excessive tearing, No Eye Pain, No Itchy Eyes, No Loss of vision, No Photophobia , No Scotomata, No Uses contacts, No Uses glasses, No Other HEENT: No: Heacaches, Visual Changes, Hearing change, Nasal congestion, Nasal discharge, Oral lesions, Sinus pain, Sore Throat, Epistaxis, Sneezing, Snoring, Tinnitus, Vertigo, Vocal changes, Other ALLERGY AND IMMUNOLOGY: No: Hives, Insect Bite Sensitivity, Itchy/Watery Eyes, Nasal Congestion, Post Nasal Drip, Seasonal Allergies, Other Hematological and Lymphatic: No: Bleeding Problems, Blood Clots, Blood Transfusions, Brusing, Night Sweats, Pallor, Swollen Lymph Nodes, Other ENDOCRINE: No: Breast Changes, Galactorrhea, Hair Pattern Changes, Hot Flashes , Malaise/lethargy, Mood Swings, Palpitations, Polydipsia/polyuria, Skin Changes , Temperature Intolerance, Unexpected Weight Changes, Other Breast: No New/Changing Breast Lumps, No Nipple changes, No Nipple discharge, No Other Respiratory: No: Cough, Hemoptysis, Orthopnea, Pleuritic Pain, Shortness of breath, SOB with excertion, Sputum Changes, Stridor, Tachypnea, Wheezing, Other Cardiovascular: No Chest Pain, No Palpitations, No Orthopnea, No Paroxysmal Noc. Dyspnea, No Edema, No Lt Headedness, No Other Gastrointestinal: No Nausea, No Vomiting, No Abdominal Pain, No Diarrhea, No Constipation, No Melena, No Hematochezia, No Other Genitourinary: No Dysuria, No Frequency, No Incontinence, No Hematuria, No Retention, No Discharge, No Urgency, No Pain, No Flank Pain, No Other, No , No , No , No , No , No , No Musculoskeletal: Yes Gait Disturbance, Yes Joint Pain, Yes Joint Stiffness, Yes Joint Swelling, Yes Pain In: (back) Neurological: No Behavorial Changes, No Bowel/Bladder ControlChng, No Confusion , No Dizziness, No Gait Disturbance, No Headaches, No Impaired Coord/balance, No Memory Loss, No Numbness/Tingling, No Seizures, No Speech Problems, No Tremors, No Visual Changes, No Weakness, No Other Skin: No Dry Skin, No Eczema, No Hair Changes, No Lumps, No Mole Changes, No Mottling, No Nail Changes, No Pruritus, No Rash, No Skin Lesion Changes, No Other, No Acne Physical Exam General: Alert, Oriented X3, Cooperative, No acute distress, Other (visible tremors which seem to be worse with movment) HEENT: EOMI, Other (minimal SubQ tissue, 6-7 staple wires on top head, somedry blood) Lungs: Clear to auscultation, Normal air movement Heart: S1S2, RRR Cardiovascular: S1, S2 Breasts: Normal, Rt breast nml w/o mass, Lt breast nml w/o mass, Nipples normal Abdomen: Normal bowel sounds, Soft, No tenderness, No hepatosplenomegaly, No masses Rectal Exam: not examined PELVIC: Nml ext genitalia Extremities: No clubbing, No cyanosis, No edema, Normal pulses, No tenderness/ swelling Skin: Other (minimal subQ tissue, OA deformiteis both hands, shakes) Psych/Mental Status: Mental status NL, Mood NL Vitals Vitals Vital Signs Date Time Temp Pulse Resp B/P (MAP) Pulse Ox O2 Delivery O2 Flow Rate FiO2 07/24/17 16:42 98.8 87 20 149/86 (107) 93 Room Air 98.8 VTE Prophylaxis Ordered VTE Prophylaxis Devices: Yes VTE Pharmacological Prophylaxi: Yes Assessment/Plan Assessment/Plan 1. Acute on chronic back pain, worse now after a fall 2. Hx T12 fx in past admits 3. FTT sxs, generalized weakness, worsening 4. HTN, dyslipidemia, schizophrenia - chronic stable 5. Head lac s.p 6-7 sarah at ER - will come off after 7 days per ER 6. Tremors, likely essential - consult neuro,. on clonazepam at home, i have continued Plan: Admit 2 MN Lidoderm to back Resume home meds Add pain meds PO and iV Consult physiatry Await xrays back If neg, will definitiely pursue this with further imaging if back pain remains unbearable PT/OT High fall risk SW - SNU screen, pt agreeable Check vit D if none recently Consult neuro re tremors Rest of recs pending lab results today Seen at ER TONI PRICE MD Jul 24, 2017 19:13
[2017-07-24 19:50] VITALS: BP 131/74
[2017-07-24] MEDS: oxyCODONE IR 5 MG TABLET PO PRN (20:11)
[2017-07-24] MEDS: LIDOCAINE (700MG/PATCH) PATCH. TD SCH (21:59)
[2017-07-24] MEDS: DOCUSATE SODIUM 100 MG CAPSULE. PO SCH (21:59)
[2017-07-25 03:00] VITALS: BP 145/78
[2017-07-25] MEDS: oxyCODONE IR 5 MG TABLET PO PRN ×4 (03:05→20:01)
[2017-07-25 04:45] LABS: BASO % 1 % (0-3); EOS % 2 % (0-3); HEMATOCRIT 36.2 % (36.0-47.0); LYMPH % 36 % (24-48); MEAN CORPUSCULAR HEMOGLOBIN 29 pg (25-35); MEAN CORPUSCULAR HGB CONC 33 g/dL (31-37); MEAN CORPUSCULAR VOLUME 87 fL (79-100); MONO % 7 % (0-9); NEUT % 55 % (31-73); PLATELET COUNT 143 x10^3/uL (140-400); RED BLOOD COUNT 4.18 x10^6/uL (3.50-5.40); RED CELL DISTRIBUTION WIDTH 15.5 % (11.5-14.5); WHITE BLOOD COUNT 5.6 x10^3/uL (4.0-11.0)
[2017-07-25 04:53] LABS: PHOSPHORUS 4.2 mg/dL (2.6-4.7)
[2017-07-25] MEDS: ONDANSETRON PF 4 MG/2 ML VIAL. IV PRN ×2 (05:01→18:51)
[2017-07-25] MEDS: MORPHINE SULFATE 2 MG/ML DISP.SYRIN. IV PRN (05:02)
[2017-07-25] MEDS: CALCIUM CARBONATE 500 MG TAB.CHEW PO PRN (05:06)
[2017-07-25 07:43] VITALS: BP 129/80
[2017-07-25 07:46] LABS: CALCIUM 8.7 mg/dL (8.5-10.1); CREATININE 0.6 mg/dL (0.6-1.0); POTASSIUM 4.2 mmol/L (3.5-5.1)
[2017-07-25] MEDS: LUBIPROSTONE 8 MCG CAPSULE PO SCH ×2 (08:32→17:15)
[2017-07-25] MEDS: LOSARTAN POTASSIUM 50 MG TABLET. PO SCH (08:32)
[2017-07-25] MEDS: DOCUSATE SODIUM 100 MG CAPSULE. PO SCH ×2 (08:32→20:01)
[2017-07-25] MEDS: GABAPENTIN 300 MG CAPSULE. PO SCH ×2 (08:32→20:01)
[2017-07-25] MEDS: ENOXAPARIN 40 MG/0.4 ML SYRINGE. SQ SCH (08:32)
[2017-07-25] MEDS: buPROPion XL 150 MG TAB.ER.24H. PO SCH (08:32)
[2017-07-25] MEDS: IBUPROFEN 400 MG TABLET. PO PRN ×2 (08:33→16:05)
[2017-07-25] MEDS: clonazePAM 1 MG TABLET PO SCH ×2 (08:33→20:01)
[2017-07-25] MEDS: LIDOCAINE (700MG/PATCH) PATCH. TD SCH (08:35)
--- NOTE | 2017-07-25 08:48 | RAD ---
Two-view study of the thoracolumbar spine History: Fall. Back pain. Comparison: Lumbar spine study dated February 13, 2017. Findings: Again seen is a moderate compression fracture of L2 which has been treated with a vertebroplasty. This is unchanged. No acute compression fracture is evident elsewhere. No discitis or osteolytic process is seen. IMPRESSION: Stable compression fracture of L2. No acute compression fracture is evident.
--- NOTE | 2017-07-25 11:24 | PDOC ---
PROGRESS NOTES Chief Complaint Chief Complaint Back pain after fall tremors PMH: HTN hyperlipidemia migraine bipolar schizophrenia osteoporosis History of Present Illness History of Present Illness Pt was sitting in a chair bedside. She was pleasant and conversant and appeared to be in NAD. She denies mention of chest pain, N/V, or diarrhea. She has pain localized to lower thoracolumbar spine. Pt mentions she would like to go to long term after this and prefers [place]. office services specialist have been consulted for this. CT of the head showed no fractures or fluid collection. CT of cervical spine showed no fractures. CT of thoracolumbar spine showed no fractures; she has had previous vertebroplasty. Will wait and see if pain resolves or if further imaging may be needed. Neurology has been consulted for her tremors and PM&R has also been consulted. Vitals Vitals Vital Signs Date Time Temp Pulse Resp B/P (MAP) Pulse Ox O2 Delivery O2 Flow Rate FiO2 07/25/17 08:33 20 Room Air 07/25/17 08:32 73 129/80 07/25/17 08:00 1.0 07/25/17 07:43 98.1 97 98.1 Physical Exam General: Alert, Oriented X3, Cooperative, No acute distress, Other (visible tremors which seem to be worse with movment) Heart: Regular rate Lungs: Clear Abdomen: Normal bowel sounds, Soft, No tenderness, No hepatosplenomegaly, No masses Extremities: No clubbing, No cyanosis, No edema, Normal pulses, No tenderness/ swelling Skin: No rashes, No breakdown, Other (OA deformiteis both hands, hand tremor) Labs LABS Laboratory Tests Test 07/25/17 03:45 White Blood Count 5.6 x10^3/uL (4.0-11.0) Red Blood Count 4.18 x10^6/uL (3.50-5.40) Hemoglobin 12.0 g/dL (12.0-15.5) Hematocrit 36.2 % (36.0-47.0) Mean Corpuscular Volume 87 fL (79-100) Mean Corpuscular Hemoglobin 29 pg (25-35) Mean Corpuscular Hemoglobin Concent 33 g/dL (31-37) Red Cell Distribution Width 15.5 % (11.5-14.5) Platelet Count 143 x10^3/uL (140-400) Neutrophils (%) (Auto) 55 % (31-73) Lymphocytes (%) (Auto) 36 % (24-48) Monocytes (%) (Auto) 7 % (0-9) Eosinophils (%) (Auto) 2 % (0-3) Basophils (%) (Auto) 1 % (0-3) Neutrophils # (Auto) 3.1 x10^3uL (1.8-7.7) Lymphocytes # (Auto) 2.0 x10^3/uL (1.0-4.8) Monocytes # (Auto) 0.4 x10^3/uL (0.0-1.1) Eosinophils # (Auto) 0.1 x10^3/uL (0.0-0.7) Basophils # (Auto) 0.0 x10^3/uL (0.0-0.2) Sodium Level 142 mmol/L (136-145) Potassium Level 4.2 mmol/L (3.5-5.1) Chloride Level 104 mmol/L (98-107) Carbon Dioxide Level 37 mmol/L (21-32) Anion Gap 1 (6-14) Blood Urea Nitrogen 17 mg/dL (7-20) Creatinine 0.6 mg/dL (0.6-1.0) Estimated GFR (Cockcroft-Gault) 100.0 Glucose Level 89 mg/dL (70-99) Calcium Level 8.7 mg/dL (8.5-10.1) Phosphorus Level 4.2 mg/dL (2.6-4.7) Magnesium Level 2.0 mg/dL (1.8-2.4) Review of Systems Review of Systems Pt complains of back pain Pt complains of hand tremors Pt complains of fatigue Pt complains of hunger Assessment and Plan Assessmemt and Plan Problems Medical Problems: (1) Fall Status: Acute (2) Head injury Status: Acute (3) Scalp laceration Status: Acute Back pain after fall tremors PMH: HTN hyperlipidemia migraine bipolar schizophrenia osteoporosis Plan: office services specialist consulted for SNU eval recheck labs pain management cont. fluids PT/OT appreciate subspecialist input Waiting to see if pt's pain improves Further imaging may be warranted Problems: Comment Review of Relevant I have reviewed the following items brandie (where applicable) has been applied. Labs Laboratory Tests Test 07/25/17 03:45 White Blood Count 5.6 x10^3/uL (4.0-11.0) Red Blood Count 4.18 x10^6/uL (3.50-5.40) Hemoglobin 12.0 g/dL (12.0-15.5) Hematocrit 36.2 % (36.0-47.0) Mean Corpuscular Volume 87 fL (79-100) Mean Corpuscular Hemoglobin 29 pg (25-35) Mean Corpuscular Hemoglobin Concent 33 g/dL (31-37) Red Cell Distribution Width 15.5 % (11.5-14.5) Platelet Count 143 x10^3/uL (140-400) Neutrophils (%) (Auto) 55 % (31-73) Lymphocytes (%) (Auto) 36 % (24-48) Monocytes (%) (Auto) 7 % (0-9) Eosinophils (%) (Auto) 2 % (0-3) Basophils (%) (Auto) 1 % (0-3) Neutrophils # (Auto) 3.1 x10^3uL (1.8-7.7) Lymphocytes # (Auto) 2.0 x10^3/uL (1.0-4.8) Monocytes # (Auto) 0.4 x10^3/uL (0.0-1.1) Eosinophils # (Auto) 0.1 x10^3/uL (0.0-0.7) Basophils # (Auto) 0.0 x10^3/uL (0.0-0.2) Sodium Level 142 mmol/L (136-145) Potassium Level 4.2 mmol/L (3.5-5.1) Chloride Level 104 mmol/L (98-107) Carbon Dioxide Level 37 mmol/L (21-32) Anion Gap 1 (6-14) Blood Urea Nitrogen 17 mg/dL (7-20) Creatinine 0.6 mg/dL (0.6-1.0) Estimated GFR (Cockcroft-Gault) 100.0 Glucose Level 89 mg/dL (70-99) Calcium Level 8.7 mg/dL (8.5-10.1) Phosphorus Level 4.2 mg/dL (2.6-4.7) Magnesium Level 2.0 mg/dL (1.8-2.4) Laboratory Tests Test 07/25/17 03:45 White Blood Count 5.6 x10^3/uL (4.0-11.0) Red Blood Count 4.18 x10^6/uL (3.50-5.40) Hemoglobin 12.0 g/dL (12.0-15.5) Hematocrit 36.2 % (36.0-47.0) Mean Corpuscular Volume 87 fL (79-100) Mean Corpuscular Hemoglobin 29 pg (25-35) Mean Corpuscular Hemoglobin Concent 33 g/dL (31-37) Red Cell Distribution Width 15.5 % (11.5-14.5) Platelet Count 143 x10^3/uL (140-400) Neutrophils (%) (Auto) 55 % (31-73) Lymphocytes (%) (Auto) 36 % (24-48) Monocytes (%) (Auto) 7 % (0-9) Eosinophils (%) (Auto) 2 % (0-3) Basophils (%) (Auto) 1 % (0-3) Neutrophils # (Auto) 3.1 x10^3uL (1.8-7.7) Lymphocytes # (Auto) 2.0 x10^3/uL (1.0-4.8) Monocytes # (Auto) 0.4 x10^3/uL (0.0-1.1) Eosinophils # (Auto) 0.1 x10^3/uL (0.0-0.7) Basophils # (Auto) 0.0 x10^3/uL (0.0-0.2) Sodium Level 142 mmol/L (136-145) Potassium Level 4.2 mmol/L (3.5-5.1) Chloride Level 104 mmol/L (98-107) Carbon Dioxide Level 37 mmol/L (21-32) Anion Gap 1 (6-14) Blood Urea Nitrogen 17 mg/dL (7-20) Creatinine 0.6 mg/dL (0.6-1.0) Estimated GFR (Cockcroft-Gault) 100.0 Glucose Level 89 mg/dL (70-99) Calcium Level 8.7 mg/dL (8.5-10.1) Phosphorus Level 4.2 mg/dL (2.6-4.7) Magnesium Level 2.0 mg/dL (1.8-2.4) Medications Current Medications Diphtheria/ Tetanus/Acell Pertussis (Boostrix) 0.5 ml ONCE ONCE VAX IM ; Start 07/24/17 at 17:00; Stop 07/24/17 at 17:56; Status DC Lidocaine/ Epinephrine (Xylocaine 1%-Epi 1:100,000) 20 ml 1X ONCE IJ Last administered on 07/24/17 17:01; Start 07/24/17 at 17:00; Stop 07/24/17 at 17 :01; Status DC Ondansetron HCl (Zofran Odt) 4 mg 1X ONCE PO Last administered on 07/24/17 17:15; Start 07/24/17 at 17:15; Stop 07/24/17 at 17:16; Status DC Acetaminophen (Tylenol) 650 mg 1X ONCE PO Last administered on 07/24/17 17: 14; Start 07/24/17 at 17:15; Stop 07/24/17 at 17:16; Status DC Ondansetron HCl (Zofran Odt) 4 mg STK-MED ONCE .ROUTE ; Start 07/24/17 at 17:12 ; Stop 07/24/17 at 17:13; Status DC Ondansetron HCl (Zofran) 4 mg PRN Q6HRS PRN IV NAUSEA/VOMITING Last administered on 07/25/17 05:01; Start 07/24/17 at 19:00 Prochlorperazine Edisylate (Compazine) 10 mg PRN Q6HRS PRN IV NAUSEA/VOMITING; Start 07/24/17 at 19:00 Prochlorperazine (Compazine) 25 mg PRN Q12HR PRN ME NAUSEA/VOMITING; Start at 19:00 Al Hydroxide/Mg Hydroxide (Mylanta Plus Xs) 30 ml PRN Q3HRS PRN PO HEARTBURN / GAS; Start 07/24/17 at 19:00 Calcium Carbonate/ Glycine (Tums) 500 mg PRN Q3HRS PRN PO UPSET STOMACH Last administered on 07/25/17 05:06; Start 07/24/17 at 19:00 Oxycodone HCl (Roxicodone) 5 mg PRN Q3HRS PRN PO BREAKTHROUGH PAIN Last administered on 07/25/17 08:33; Start 07/24/17 at 19:00 Morphine Sulfate 1 mg PRN Q1HR PRN IV PAIN Last administered on 07/25/17 05: 02; Start 07/24/17 at 19:00 Ketorolac Tromethamine (Toradol) 15 mg PRN Q6HRS PRN IV PAIN Last administered on 07/24/17 23:50; Start 07/24/17 at 19:00; Stop 07/29/17 at 18:59 Acetaminophen (Tylenol) 650 mg PRN Q6HRS PRN PO Headaches, Temp > 101.5F; Start 07/24/17 at 19:00 Ibuprofen (Motrin) 400 mg PRN Q6HRS PRN PO MILD PAIN Last administered on 07/25 08:33; Start 07/24/17 at 19:00 Docusate Sodium (Colace) 100 mg BID PO Last administered on 07/25/17 08:32; Start 07/24/17 at 21:00 Magnesium Hydroxide (Milk Of Magnesia) 2,400 mg PRN Q12HR PRN PO CONSTIPATION; Start 07/24/17 at 19:00 Bisacodyl (Dulcolax Supp) 10 mg PRN DAILY PRN ME CONSTIPATION; Start 07/24/17 at 19:00 Enoxaparin Sodium (Lovenox 40mg Syringe) 40 mg Q24H SQ Last administered on 08:32; Start 07/25/17 at 09:00 Lidocaine (Lidoderm) 1 patch DAILY TD Last administered on 07/24/17 21:59; Start 07/24/17 at 21:00 Atorvastatin Calcium (Lipitor) 40 mg QHS PO ; Start 07/25/17 at 21:00 Clonazepam (KlonoPIN) 1 mg BID PO Last administered on 07/25/17 08:33; Start 07/25/17 at 09:00 Tizanidine HCl (Zanaflex) 4 mg PRN Q8HRS PRN PO MUSCLE SPASMS; Start 07/24/17 at 22:45 Bupropion HCl (Wellbutrin Xl) 300 mg DAILY PO Last administered on 07/25/17 08:32; Start 07/25/17 at 09:00 Lubiprostone (Amitiza) 24 mcg BIDWMEALS PO Last administered on 07/25/17 08: 32; Start 07/25/17 at 08:00 Lurasidone HCl (Latuda) 120 mg DAILYWSUP PO ; Start 07/25/17 at 17:00 Non-Formulary Medication 1 each HS PO ; Start 07/25/17 at 21:00; Status UNV Losartan Potassium (Cozaar) 50 mg DAILY PO Last administered on 07/25/17 08: 32; Start 07/25/17 at 09:00 Influenza Virus Vaccine Quadrival (Fluarix Quad [id number] Syringe) 0.5 ml ONCE ONCE VAX IM ; Start 07/26/17 at 10:00; Stop 07/26/17 at 10:01 Gabapentin (Neurontin) 300 mg BID PO Last administered on 07/25/17 08:32; Start 07/25/17 at 09:00 Active Scripts Active Morphine Sulfate 15 Mg Tablet 1 Tab PO PRN Q6-8HRS PRN Naproxen 375 Mg Tablet 375 Mg PO BID PRN Reported Tizanidine Hcl 4 Mg Tablet 4 Mg PO PRN Q8HRS PRN Amitiza (Lubiprostone) 24 Mcg Capsule 24 Mcg PO BID Stool Softener (Docusate Sodium) 100 Mg Capsule 100 Mg PO DAILY Melatonin 5 Mg Tablet (Melatonin/Pyridoxine Hcl (B6)) 1 Each Tablet 1 Each PO HS Latuda (Lurasidone Hcl) 120 Mg Tablet 120 Mg PO DAILYWSUP Bupropion Xl (Bupropion Hcl) 300 Mg Tab.er.24h 300 Mg PO DAILY Alendronate Sodium 70 Mg Tablet 70 Mg PO WEEKLY Ibuprofen 600 Mg Tablet 600 Mg PO Q6H PRN Hydrocodone-Apap 5-325 (Hydrocodone Bit/Acetaminophen) 1 Each Tablet 1 Tab PO PRN Q6HRS PRN Vitamin D-3 (Cholecalciferol (Vitamin D3)) 2,000 Unit Tablet 5,000 Unit PO WEEKLY Losartan Potassium 100 Mg Tablet 50 Mg PO DAILY Amlodipine Besylate 10 Mg Tablet 10 Mg PO DAILY Atorvastatin Calcium 40 Mg Tablet 40 Mg PO DAILY Hydrochlorothiazide Capsule (Hydrochlorothiazide) 12.5 Mg Capsule 25 Mg PO DAILY Potassium Chloride 20 Meq Tab.er.prt 20 Meq PO DAILY Maxalt (Rizatriptan Benzoate) 10 Mg Tablet 10 Mg PO PRN PRN Clonazepam 1 Mg Tablet 1 Mg PO BID Vitals/I & O Vital Sign - Last 24 Hours 07/24/17 07/24/17 07/24/17 07/24/17 16:42 17:00 18:00 18:30 Temp 98.8 98.8 Pulse 87 88 80 78 Resp 20 16 18 20 B/P (MAP) 149/86 (107) Pulse Ox 93 91 96 97 O2 Delivery Room Air 07/24/17 07/24/17 07/24/17 07/24/17 19:30 19:50 20:00 20:11 Temp 98.4 98.4 Pulse 78 76 Resp 21 20 16 B/P (MAP) 131/74 (93) Pulse Ox 96 97 96 O2 Delivery Room Air Room Air Nasal Cannula 07/24/17 07/25/17 07/25/17 07/25/17 21:15 03:00 03:05 04:15 Temp 98.3 98.3 Pulse 86 Resp 17 20 B/P (MAP) 145/78 (100) Pulse Ox 91 96 96 O2 Delivery Nasal Cannula Nasal Cannula Nasal Cannula O2 Flow Rate 1.0 2.0 1.0 07/25/17 07/25/17 07/25/17 07/25/17 05:02 05:35 07:43 08:00 Temp 98.1 98.1 Pulse 73 Resp 17 20 B/P (MAP) 129/80 (96) Pulse Ox 96 96 97 O2 Delivery Nasal Cannula Nasal Cannula Nasal Cannula Room Air O2 Flow Rate 1.0 1.0 1.0 1.0 07/25/17 07/25/17 08:32 08:33 Pulse 73 Resp 20 B/P (MAP) 129/80 O2 Delivery Room Air BRITNEY SUMMERS III DO Jul 25, 2017 11:24
[2017-07-25 11:28] VITALS: BP 123/76
--- NOTE | 2017-07-25 13:23 | CONS ---
DATE OF CONSULTATION: 07/25/2017 ATTENDING PHYSICIAN: Dr. Valencia. The patient was seen at the request of Dr. Valencia for rehab evaluation. HISTORY OF PRESENT ILLNESS: This is a 66-year-old right-handed female who lives in a high-rise apartment, usually walks with a 4-wheeled walker and had an attendant that comes and helps with homemaking including cooking and also helping with shower at least 4 days a week. The patient admits she does not eat much as the food does not taste good. The patient slipped and fell in the bathroom on 07/24/2017, and since admission, she had a CT scan of her neck and brain, which failed to reveal any acute abnormalities, and x-rays of thoracolumbar spine failed to reveal any new vertebral body compression fracture. It revealed stable compression deformity of L2. The patient admits back pain is less. She denies any radiation of pain to the extremities. She denies any tingling, numbness sensation in the extremities. The patient with known hypertension, hyperlipidemia, migraine, bipolar disorder, schizophrenia, chronic lower back pain, osteoporosis, status post tonsillectomy, hysterectomy. PHYSICAL EXAMINATION: Today revealed a middle-aged female. The patient is awake, alert, oriented to time, place, person and circumstance and follows commands appropriately, moves all 4 extremities voluntarily. She had overall 4/5 to 4+/5 grade muscle strength with increased weakness in hand intrinsic muscles and also dorsiflexor muscles of both feet where she had muscle atrophy involving hand intrinsic muscles. I did not see any tremors. She had equal perception of touch and pinprick sensation bilaterally. Deep tendon reflexes are 2+ and symmetrical. Her skin is intact. She had tenderness to palpation over thoracic and lumbar paraspinal muscles. The patient is independent with getting up from bedside chair where I have examined her, and she walked with a roller walker for a few feet at bedside with wide-based gait and bend forward posture. Straight leg raising test is negative bilaterally. She had pain free range of motion on both hip and knee joints. Negative Tinel sign over median nerve at the wrist and over ulnar nerve at the wrist and elbow and over peroneal nerve at fibular neck area. ASSESSMENT: A middle-aged female with known hypertension, hyperlipidemia, migraine episodes, bipolar disorder, schizophrenia, chronic lower back pain, osteoporosis, status post previous L2 vertebroplasty for treatment of compression fracture, with thoracolumbar paraspinal muscle strain. No clinical evidence of ongoing thoracic or lumbar radiculopathy, but she presents with muscle atrophy involving hand intrinsic muscles with associated weakness, also weakness of dorsiflexor muscles of both feet that might be contributing to her falls. I am not sure if she have any motor neuron disease or just malnutrition contributing to her weakness. RECOMMENDATION: To ask Physical Therapy and Occupational Therapy to see her. To consider transfer to [facility] care unit for continued care when medically stable. She already has some back support brace at home. Dr. Valencia, I appreciate asking me to participate in the care of this interesting patient. I will be glad to follow her with you as needed for her rehabilitation. NESSA BUCHANAN MD DR: ANGELA/ankit JOB#: [id number] / [id number]
[2017-07-25 15:00] VITALS: BP 150/80
--- NOTE | 2017-07-25 16:26 | PDOC2 ---
NEUROLOGY CONSULT Date of Admission Date of Admission DATE: 07/25/17 TIME: 16:16 Reason for Consult Reason for Consult: IMPRESSION: Gait instability. Generalized weakness. Fall. C-spine stenosis. Degenerative spine disease. Muscular atrophy, UE. HTN HLD Thyroid nodule. Schizophrenia. Bipolar disorder with panic attack. L2 old fracture s/p vertebroplasty. RECOMMENDATIONS/PLAN: C-spine MRI w/wo contrast to compare with the study in 02/25. Thyroid US. Lab: see orders. Treat medical diseases. OT/PT. HISTORY OF THE PRESENT ILLNESS: 66-y-old female patient complaints of generalized weakness for about 2 months and fall this time. She stated her gait was not stable and easily get fall. she had L2 fracture before and received surgical treatment. No urinary or bowel dysfunction so far. Past Medical History Cardiovascular: HTN, Hyperlipidemia CENTRAL NERVOUS SYSTEM: Migraine Psych: Bipolar, Schizophrenia Musculoskeletal: low back pain Endocrine: Osteoporosis Past Surgical History Tonsillectomy Hysterectomy L-spine vertebroplasty Family History Her mother had muscular atrophy in hands as well. Social History Smoke: No ALCOHOL: none Drugs: None ALLERGY: Reviewed. REVIEW OF SYSTEMS: Constitutional: Malnutrition. Head: No recent traumatic brain or head injury. Skin: No edema, or rash. Ear: No infection. Eyes: No vision loss or color blindness. Nose: No bleeding or purulent discharges. Hearing: No hearing decrease. Neck: No injury. Breast: No history of cancer, masses,or discharges. Cardiac: HTN, HLD. Pulmonary: No COPD. GI: No GI ulcer, GI bleeding. Urinary/genital: UTI. Endocrinologic: No cousin face, craniofacial dysmorphism, polydactyly. Skeletomuscular: Generalized weakness. Neurological: see HP. Psychiatric: Denies drug use/abuse. Otherwise, not [id number] review of systems. PHYSICAL EXAMINATION: General appearance is in subacute distress. HEENT: Normocephalic and nontraumatic. Eyes, nose, ears, and throat are unremarkable. Neck is supple. No lymphadenopathy. No crepitus. Cardiovascular: S1, S2, regular rate and rhythm. Pulmonary: Clear to auscultation bilaterally. Abdomen: Bowel sounds are positive. Abdomen is soft, nontender, and nondistended. Extremities: No rash, lesions, or edema. No restriction of range of motion NEUROLOGICAL EXAMINATION: Alert Oriented to time, place and person. PERRL. EOMI. CN: no focal findings. Muscle tone: within normal. Muscle strength: 4 DTR: 2- Plantar reflex: Flexor response bilaterally Gait: not examined in bed. Sensory exam: no abnormal findings. No cerebellar signs elicited. F-T-N test fine. Significant muscular atrophy in hands. Current Medications Current Medications Current Medications Diphtheria/ Tetanus/Acell Pertussis (Boostrix) 0.5 ml ONCE ONCE VAX IM ; Start 07/24/17 at 17:00; Stop 07/24/17 at 17:56; Status DC Lidocaine/ Epinephrine (Xylocaine 1%-Epi 1:100,000) 20 ml 1X ONCE IJ Last administered on 07/24/17 17:01; Start 07/24/17 at 17:00; Stop 07/24/17 at 17 :01; Status DC Ondansetron HCl (Zofran Odt) 4 mg 1X ONCE PO Last administered on 07/24/17 17:15; Start 07/24/17 at 17:15; Stop 07/24/17 at 17:16; Status DC Acetaminophen (Tylenol) 650 mg 1X ONCE PO Last administered on 07/24/17 17: 14; Start 07/24/17 at 17:15; Stop 07/24/17 at 17:16; Status DC Ondansetron HCl (Zofran Odt) 4 mg STK-MED ONCE .ROUTE ; Start 07/24/17 at 17:12 ; Stop 07/24/17 at 17:13; Status DC Ondansetron HCl (Zofran) 4 mg PRN Q6HRS PRN IV NAUSEA/VOMITING Last administered on 07/25/17 05:01; Start 07/24/17 at 19:00 Prochlorperazine Edisylate (Compazine) 10 mg PRN Q6HRS PRN IV NAUSEA/VOMITING; Start 07/24/17 at 19:00 Prochlorperazine (Compazine) 25 mg PRN Q12HR PRN AR NAUSEA/VOMITING; Start at 19:00 Al Hydroxide/Mg Hydroxide (Mylanta Plus Xs) 30 ml PRN Q3HRS PRN PO HEARTBURN / GAS; Start 07/24/17 at 19:00 Calcium Carbonate/ Glycine (Tums) 500 mg PRN Q3HRS PRN PO UPSET STOMACH Last administered on 07/25/17 05:06; Start 07/24/17 at 19:00 Oxycodone HCl (Roxicodone) 5 mg PRN Q3HRS PRN PO BREAKTHROUGH PAIN Last administered on 07/25/17 16:05; Start 07/24/17 at 19:00 Morphine Sulfate 1 mg PRN Q1HR PRN IV PAIN Last administered on 07/25/17 05: 02; Start 07/24/17 at 19:00 Ketorolac Tromethamine (Toradol) 15 mg PRN Q6HRS PRN IV PAIN Last administered on 07/24/17 23:50; Start 07/24/17 at 19:00; Stop 07/29/17 at 18:59 Acetaminophen (Tylenol) 650 mg PRN Q6HRS PRN PO Headaches, Temp > 101.5F; Start 07/24/17 at 19:00 Ibuprofen (Motrin) 400 mg PRN Q6HRS PRN PO MILD PAIN Last administered on 07/25 16:05; Start 07/24/17 at 19:00 Docusate Sodium (Colace) 100 mg BID PO Last administered on 07/25/17 08:32; Start 07/24/17 at 21:00 Magnesium Hydroxide (Milk Of Magnesia) 2,400 mg PRN Q12HR PRN PO CONSTIPATION; Start 07/24/17 at 19:00 Bisacodyl (Dulcolax Supp) 10 mg PRN DAILY PRN AR CONSTIPATION; Start 07/24/17 at 19:00 Enoxaparin Sodium (Lovenox 40mg Syringe) 40 mg Q24H SQ Last administered on 08:32; Start 07/25/17 at 09:00 Lidocaine (Lidoderm) 1 patch DAILY TD Last administered on 07/24/17 21:59; Start 07/24/17 at 21:00 Atorvastatin Calcium (Lipitor) 40 mg QHS PO ; Start 07/25/17 at 21:00 Clonazepam (KlonoPIN) 1 mg BID PO Last administered on 07/25/17 08:33; Start 07/25/17 at 09:00 Tizanidine HCl (Zanaflex) 4 mg PRN Q8HRS PRN PO MUSCLE SPASMS; Start 07/24/17 at 22:45 Bupropion HCl (Wellbutrin Xl) 300 mg DAILY PO Last administered on 07/25/17 08:32; Start 07/25/17 at 09:00 Lubiprostone (Amitiza) 24 mcg BIDWMEALS PO Last administered on 07/25/17 08: 32; Start 07/25/17 at 08:00 Lurasidone HCl (Latuda) 120 mg DAILYWSUP PO ; Start 07/25/17 at 17:00 Non-Formulary Medication 1 each HS PO ; Start 07/25/17 at 21:00; Status UNV Losartan Potassium (Cozaar) 50 mg DAILY PO Last administered on 07/25/17 08: 32; Start 07/25/17 at 09:00 Influenza Virus Vaccine Quadrival (Fluarix Quad 6279-8663 Syringe) 0.5 ml ONCE ONCE VAX IM ; Start 07/26/17 at 10:00; Stop 07/26/17 at 10:01 Gabapentin (Neurontin) 300 mg BID PO Last administered on 07/25/17 08:32; Start 07/25/17 at 09:00 Active Scripts Active Morphine Sulfate 15 Mg Tablet 1 Tab PO PRN Q6-8HRS PRN Naproxen 375 Mg Tablet 375 Mg PO BID PRN Reported Tizanidine Hcl 4 Mg Tablet 4 Mg PO PRN Q8HRS PRN Amitiza (Lubiprostone) 24 Mcg Capsule 24 Mcg PO BID Stool Softener (Docusate Sodium) 100 Mg Capsule 100 Mg PO DAILY Melatonin 5 Mg Tablet (Melatonin/Pyridoxine Hcl (B6)) 1 Each Tablet 1 Each PO HS Latuda (Lurasidone Hcl) 120 Mg Tablet 120 Mg PO DAILYWSUP Bupropion Xl (Bupropion Hcl) 300 Mg Tab.er.24h 300 Mg PO DAILY Alendronate Sodium 70 Mg Tablet 70 Mg PO WEEKLY Ibuprofen 600 Mg Tablet 600 Mg PO Q6H PRN Hydrocodone-Apap 5-325 (Hydrocodone Bit/Acetaminophen) 1 Each Tablet 1 Tab PO PRN Q6HRS PRN Vitamin D-3 (Cholecalciferol (Vitamin D3)) 2,000 Unit Tablet 5,000 Unit PO WEEKLY Losartan Potassium 100 Mg Tablet 50 Mg PO DAILY Amlodipine Besylate 10 Mg Tablet 10 Mg PO DAILY Atorvastatin Calcium 40 Mg Tablet 40 Mg PO DAILY Hydrochlorothiazide Capsule (Hydrochlorothiazide) 12.5 Mg Capsule 25 Mg PO DAILY Potassium Chloride 20 Meq Tab.er.prt 20 Meq PO DAILY Maxalt (Rizatriptan Benzoate) 10 Mg Tablet 10 Mg PO PRN PRN Clonazepam 1 Mg Tablet 1 Mg PO BID Allergies Allergies: Coded Allergies: No Known Drug Allergies (Unverified , 07/25/17) Vitals VITALS Vital Signs Date Time Temp Pulse Resp B/P (MAP) Pulse Ox O2 Delivery O2 Flow Rate FiO2 07/25/17 15:00 98.4 150/80 (103) 92 Room Air 98.4 07/25/17 11:28 79 18 07/25/17 08:00 1.0 Labs Labs Laboratory Tests Test 07/25/17 03:45 White Blood Count 5.6 x10^3/uL (4.0-11.0) Red Blood Count 4.18 x10^6/uL (3.50-5.40) Hemoglobin 12.0 g/dL (12.0-15.5) Hematocrit 36.2 % (36.0-47.0) Mean Corpuscular Volume 87 fL (79-100) Mean Corpuscular Hemoglobin 29 pg (25-35) Mean Corpuscular Hemoglobin Concent 33 g/dL (31-37) Red Cell Distribution Width 15.5 % (11.5-14.5) Platelet Count 143 x10^3/uL (140-400) Neutrophils (%) (Auto) 55 % (31-73) Lymphocytes (%) (Auto) 36 % (24-48) Monocytes (%) (Auto) 7 % (0-9) Eosinophils (%) (Auto) 2 % (0-3) Basophils (%) (Auto) 1 % (0-3) Neutrophils # (Auto) 3.1 x10^3uL (1.8-7.7) Lymphocytes # (Auto) 2.0 x10^3/uL (1.0-4.8) Monocytes # (Auto) 0.4 x10^3/uL (0.0-1.1) Eosinophils # (Auto) 0.1 x10^3/uL (0.0-0.7) Basophils # (Auto) 0.0 x10^3/uL (0.0-0.2) Sodium Level 142 mmol/L (136-145) Potassium Level 4.2 mmol/L (3.5-5.1) Chloride Level 104 mmol/L (98-107) Carbon Dioxide Level 37 mmol/L (21-32) Anion Gap 1 (6-14) Blood Urea Nitrogen 17 mg/dL (7-20) Creatinine 0.6 mg/dL (0.6-1.0) Estimated GFR (Cockcroft-Gault) 100.0 Glucose Level 89 mg/dL (70-99) Calcium Level 8.7 mg/dL (8.5-10.1) Phosphorus Level 4.2 mg/dL (2.6-4.7) Magnesium Level 2.0 mg/dL (1.8-2.4) Creatine Kinase 170 U/L (26-192) Thyroid Stimulating Hormone (TSH) 1.225 uIU/mL (0.358-3.74) Laboratory Tests Test 07/25/17 03:45 White Blood Count 5.6 x10^3/uL (4.0-11.0) Red Blood Count 4.18 x10^6/uL (3.50-5.40) Hemoglobin 12.0 g/dL (12.0-15.5) Hematocrit 36.2 % (36.0-47.0) Mean Corpuscular Volume 87 fL (79-100) Mean Corpuscular Hemoglobin 29 pg (25-35) Mean Corpuscular Hemoglobin Concent 33 g/dL (31-37) Red Cell Distribution Width 15.5 % (11.5-14.5) Platelet Count 143 x10^3/uL (140-400) Neutrophils (%) (Auto) 55 % (31-73) Lymphocytes (%) (Auto) 36 % (24-48) Monocytes (%) (Auto) 7 % (0-9) Eosinophils (%) (Auto) 2 % (0-3) Basophils (%) (Auto) 1 % (0-3) Neutrophils # (Auto) 3.1 x10^3uL (1.8-7.7) Lymphocytes # (Auto) 2.0 x10^3/uL (1.0-4.8) Monocytes # (Auto) 0.4 x10^3/uL (0.0-1.1) Eosinophils # (Auto) 0.1 x10^3/uL (0.0-0.7) Basophils # (Auto) 0.0 x10^3/uL (0.0-0.2) Sodium Level 142 mmol/L (136-145) Potassium Level 4.2 mmol/L (3.5-5.1) Chloride Level 104 mmol/L (98-107) Carbon Dioxide Level 37 mmol/L (21-32) Anion Gap 1 (6-14) Blood Urea Nitrogen 17 mg/dL (7-20) Creatinine 0.6 mg/dL (0.6-1.0) Estimated GFR (Cockcroft-Gault) 100.0 Glucose Level 89 mg/dL (70-99) Calcium Level 8.7 mg/dL (8.5-10.1) Phosphorus Level 4.2 mg/dL (2.6-4.7) Magnesium Level 2.0 mg/dL (1.8-2.4) Creatine Kinase 170 U/L (26-192) Thyroid Stimulating Hormone (TSH) 1.225 uIU/mL (0.358-3.74) JASIEL VICK MD Jul 25, 2017 16:26
[2017-07-25] MEDS: LURASIDONE 40 MG TABLET. PO SCH (17:15)
[2017-07-25 19:00] VITALS: BP 172/83
[2017-07-25] MEDS: ATORVASTATIN CALCIUM 40 MG TABLET. PO SCH (20:00)
[2017-07-25] MEDS ORDERED: MELATONIN PO SCH (21:00)
[2017-07-25] MEDS ORDERED: PYRIDOXINE HCL PO SCH (21:00)
[2017-07-25 23:00] VITALS: BP 164/92
[2017-07-26 03:00] VITALS: BP 133/65
[2017-07-26 05:34] LABS: BASO % 1 % (0-3); EOS % 2 % (0-3); HEMATOCRIT 35.4 % (36.0-47.0); HEMOGLOBIN 11.7 g/dL (12.0-15.5); LYMPH # 1.8 x10^3/uL (1.0-4.8); LYMPH % 40 % (24-48); MEAN CORPUSCULAR HEMOGLOBIN 29 pg (25-35); MEAN CORPUSCULAR HGB CONC 33 g/dL (31-37); MEAN CORPUSCULAR VOLUME 87 fL (79-100); MONO % 8 % (0-9); NEUT % 49 % (31-73); PLATELET COUNT 141 x10^3/uL (140-400); RED BLOOD COUNT 4.07 x10^6/uL (3.50-5.40); RED CELL DISTRIBUTION WIDTH 15.4 % (11.5-14.5); WHITE BLOOD COUNT 4.6 x10^3/uL (4.0-11.0)
[2017-07-26 06:26] LABS: CALCIUM 8.9 mg/dL (8.5-10.1); CREATININE 0.6 mg/dL (0.6-1.0); POTASSIUM 3.8 mmol/L (3.5-5.1)
[2017-07-26 07:00] VITALS: BP 123/71
[2017-07-26] MEDS: IBUPROFEN 400 MG TABLET. PO PRN (08:43)
[2017-07-26] MEDS: DOCUSATE SODIUM 100 MG CAPSULE. PO SCH ×2 (08:43→20:53)
[2017-07-26] MEDS: buPROPion XL 150 MG TAB.ER.24H. PO SCH (08:43)
[2017-07-26] MEDS: LUBIPROSTONE 8 MCG CAPSULE PO SCH ×2 (08:43→16:39)
[2017-07-26] MEDS: clonazePAM 1 MG TABLET PO SCH ×2 (08:43→20:53)
[2017-07-26] MEDS: GABAPENTIN 300 MG CAPSULE. PO SCH ×2 (08:43→20:53)
[2017-07-26] MEDS: ENOXAPARIN 40 MG/0.4 ML SYRINGE. SQ SCH (08:44)
[2017-07-26] MEDS: LIDOCAINE (700MG/PATCH) PATCH. TD SCH (08:44)
[2017-07-26] MEDS: LOSARTAN POTASSIUM 50 MG TABLET. PO SCH (08:44)
[2017-07-26] MEDS ORDERED: FLU VACC QS2017-18 (36MOS+)/PF 0.5 ML SYRINGE. VAX IM ONE (10:00)
[2017-07-26 11:00] VITALS: BP 124/75
[2017-07-26] MEDS ORDERED: GADOBUTROL 7.5 MMOL/7.5 ML VIAL IV ONE (11:00)
[2017-07-26] MEDS: oxyCODONE IR 5 MG TABLET PO PRN ×3 (11:43→19:53)
--- NOTE | 2017-07-26 12:55 | PDOC ---
PROGRESS NOTES Chief Complaint Chief Complaint Back pain after fall tremors PMH: HTN hyperlipidemia migraine bipolar schizophrenia osteoporosis History of Present Illness History of Present Illness Pt was originally out of room getting an MRI of her C spine. We returned later. She was sitting in a chair by her bed and was pleasant and conversant. She appears to be in NAD. Pt has no complaints of chest pain, N/V, or diarrhea. PM&R saw her and suggests SNU when she is stable and for PT/OT to see her while she is here. Neurology suggests a Cspine MRI that was completed so they can compare to a previous scan. Also suggests a thyroid US. Discussed plan with the pt and R inlcuding waiting for imaging and further tests as well as resolution/worsening of pain. Vitals Vitals Vital Signs Date Time Temp Pulse Resp B/P (MAP) Pulse Ox O2 Delivery O2 Flow Rate FiO2 07/26/17 11:43 18 93 Nasal Cannula 2.0 07/26/17 08:44 71 123/71 07/26/17 07:00 97.5 97.5 Physical Exam General: Alert, Oriented X3, Cooperative, No acute distress, Other (visible tremors which seem to be worse with movment) Heart: Regular rate, Normal S1, Normal S2 Lungs: Clear Abdomen: Normal bowel sounds, Soft, No tenderness, No hepatosplenomegaly, No masses Extremities: No clubbing, No cyanosis, No edema, Normal pulses, No tenderness/ swelling Skin: No rashes, No breakdown, Other (OA deformiteis both hands, hand tremor) Labs LABS Laboratory Tests Test 07/26/17 04:00 White Blood Count 4.6 x10^3/uL (4.0-11.0) Red Blood Count 4.07 x10^6/uL (3.50-5.40) Hemoglobin 11.7 g/dL (12.0-15.5) Hematocrit 35.4 % (36.0-47.0) Mean Corpuscular Volume 87 fL (79-100) Mean Corpuscular Hemoglobin 29 pg (25-35) Mean Corpuscular Hemoglobin Concent 33 g/dL (31-37) Red Cell Distribution Width 15.4 % (11.5-14.5) Platelet Count 141 x10^3/uL (140-400) Neutrophils (%) (Auto) 49 % (31-73) Lymphocytes (%) (Auto) 40 % (24-48) Monocytes (%) (Auto) 8 % (0-9) Eosinophils (%) (Auto) 2 % (0-3) Basophils (%) (Auto) 1 % (0-3) Neutrophils # (Auto) 2.2 x10^3uL (1.8-7.7) Lymphocytes # (Auto) 1.8 x10^3/uL (1.0-4.8) Monocytes # (Auto) 0.4 x10^3/uL (0.0-1.1) Eosinophils # (Auto) 0.1 x10^3/uL (0.0-0.7) Basophils # (Auto) 0.0 x10^3/uL (0.0-0.2) Sodium Level 142 mmol/L (136-145) Potassium Level 3.8 mmol/L (3.5-5.1) Chloride Level 104 mmol/L (98-107) Carbon Dioxide Level 37 mmol/L (21-32) Anion Gap 1 (6-14) Blood Urea Nitrogen 13 mg/dL (7-20) Creatinine 0.6 mg/dL (0.6-1.0) Estimated GFR (Cockcroft-Gault) 100.0 Glucose Level 88 mg/dL (70-99) Calcium Level 8.9 mg/dL (8.5-10.1) Review of Systems Review of Systems Pt fatigued Pt has tremor Pt complains of hunger Assessment and Plan Assessmemt and Plan Problems Medical Problems: (1) Fall Status: Acute (2) Head injury Status: Acute (3) Scalp laceration Status: Acute Back pain after fall tremors PMH: HTN hyperlipidemia migraine bipolar schizophrenia osteoporosis Plan: consulted social scientist for a SNU eval recheck labs manage pain cont. monitoring appreciate subspecialist input thyroid US today or tomorrow hopefully Problems: Comment Review of Relevant I have reviewed the following items brandie (where applicable) has been applied. Labs Laboratory Tests Test 07/25/17 03:45 07/26/17 04:00 White Blood Count 5.6 x10^3/uL (4.0-11.0) 4.6 x10^3/uL (4.0-11.0) Red Blood Count 4.18 x10^6/uL (3.50-5.40) 4.07 x10^6/uL (3.50-5.40) Hemoglobin 12.0 g/dL (12.0-15.5) 11.7 g/dL (12.0-15.5) Hematocrit 36.2 % (36.0-47.0) 35.4 % (36.0-47.0) Mean Corpuscular Volume 87 fL (79-100) 87 fL (79-100) Mean Corpuscular Hemoglobin 29 pg (25-35) 29 pg (25-35) Mean Corpuscular Hemoglobin Concent 33 g/dL (31-37) 33 g/dL (31-37) Red Cell Distribution Width 15.5 % (11.5-14.5) 15.4 % (11.5-14.5) Platelet Count 143 x10^3/uL (140-400) 141 x10^3/uL (140-400) Neutrophils (%) (Auto) 55 % (31-73) 49 % (31-73) Lymphocytes (%) (Auto) 36 % (24-48) 40 % (24-48) Monocytes (%) (Auto) 7 % (0-9) 8 % (0-9) Eosinophils (%) (Auto) 2 % (0-3) 2 % (0-3) Basophils (%) (Auto) 1 % (0-3) 1 % (0-3) Neutrophils # (Auto) 3.1 x10^3uL (1.8-7.7) 2.2 x10^3uL (1.8-7.7) Lymphocytes # (Auto) 2.0 x10^3/uL (1.0-4.8) 1.8 x10^3/uL (1.0-4.8) Monocytes # (Auto) 0.4 x10^3/uL (0.0-1.1) 0.4 x10^3/uL (0.0-1.1) Eosinophils # (Auto) 0.1 x10^3/uL (0.0-0.7) 0.1 x10^3/uL (0.0-0.7) Basophils # (Auto) 0.0 x10^3/uL (0.0-0.2) 0.0 x10^3/uL (0.0-0.2) Sodium Level 142 mmol/L (136-145) 142 mmol/L (136-145) Potassium Level 4.2 mmol/L (3.5-5.1) 3.8 mmol/L (3.5-5.1) Chloride Level 104 mmol/L (98-107) 104 mmol/L (98-107) Carbon Dioxide Level 37 mmol/L (21-32) 37 mmol/L (21-32) Anion Gap 1 (6-14) 1 (6-14) Blood Urea Nitrogen 17 mg/dL (7-20) 13 mg/dL (7-20) Creatinine 0.6 mg/dL (0.6-1.0) 0.6 mg/dL (0.6-1.0) Estimated GFR (Cockcroft-Gault) 100.0 100.0 Glucose Level 89 mg/dL (70-99) 88 mg/dL (70-99) Calcium Level 8.7 mg/dL (8.5-10.1) 8.9 mg/dL (8.5-10.1) Phosphorus Level 4.2 mg/dL (2.6-4.7) Magnesium Level 2.0 mg/dL (1.8-2.4) Creatine Kinase 170 U/L (26-192) Thyroid Stimulating Hormone (TSH) 1.225 uIU/mL (0.358-3.74) Laboratory Tests Test 07/26/17 04:00 White Blood Count 4.6 x10^3/uL (4.0-11.0) Red Blood Count 4.07 x10^6/uL (3.50-5.40) Hemoglobin 11.7 g/dL (12.0-15.5) Hematocrit 35.4 % (36.0-47.0) Mean Corpuscular Volume 87 fL (79-100) Mean Corpuscular Hemoglobin 29 pg (25-35) Mean Corpuscular Hemoglobin Concent 33 g/dL (31-37) Red Cell Distribution Width 15.4 % (11.5-14.5) Platelet Count 141 x10^3/uL (140-400) Neutrophils (%) (Auto) 49 % (31-73) Lymphocytes (%) (Auto) 40 % (24-48) Monocytes (%) (Auto) 8 % (0-9) Eosinophils (%) (Auto) 2 % (0-3) Basophils (%) (Auto) 1 % (0-3) Neutrophils # (Auto) 2.2 x10^3uL (1.8-7.7) Lymphocytes # (Auto) 1.8 x10^3/uL (1.0-4.8) Monocytes # (Auto) 0.4 x10^3/uL (0.0-1.1) Eosinophils # (Auto) 0.1 x10^3/uL (0.0-0.7) Basophils # (Auto) 0.0 x10^3/uL (0.0-0.2) Sodium Level 142 mmol/L (136-145) Potassium Level 3.8 mmol/L (3.5-5.1) Chloride Level 104 mmol/L (98-107) Carbon Dioxide Level 37 mmol/L (21-32) Anion Gap 1 (6-14) Blood Urea Nitrogen 13 mg/dL (7-20) Creatinine 0.6 mg/dL (0.6-1.0) Estimated GFR (Cockcroft-Gault) 100.0 Glucose Level 88 mg/dL (70-99) Calcium Level 8.9 mg/dL (8.5-10.1) Medications Current Medications Diphtheria/ Tetanus/Acell Pertussis (Boostrix) 0.5 ml ONCE ONCE VAX IM ; Start 07/24/17 at 17:00; Stop 07/24/17 at 17:56; Status DC Lidocaine/ Epinephrine (Xylocaine 1%-Epi 1:100,000) 20 ml 1X ONCE IJ Last administered on 07/24/17 17:01; Start 07/24/17 at 17:00; Stop 07/24/17 at 17 :01; Status DC Ondansetron HCl (Zofran Odt) 4 mg 1X ONCE PO Last administered on 07/24/17 17:15; Start 07/24/17 at 17:15; Stop 07/24/17 at 17:16; Status DC Acetaminophen (Tylenol) 650 mg 1X ONCE PO Last administered on 07/24/17 17: 14; Start 07/24/17 at 17:15; Stop 07/24/17 at 17:16; Status DC Ondansetron HCl (Zofran Odt) 4 mg STK-MED ONCE .ROUTE ; Start 07/24/17 at 17:12 ; Stop 07/24/17 at 17:13; Status DC Ondansetron HCl (Zofran) 4 mg PRN Q6HRS PRN IV NAUSEA/VOMITING Last administered on 07/25/17 18:51; Start 07/24/17 at 19:00 Prochlorperazine Edisylate (Compazine) 10 mg PRN Q6HRS PRN IV NAUSEA/VOMITING; Start 07/24/17 at 19:00 Prochlorperazine (Compazine) 25 mg PRN Q12HR PRN RI NAUSEA/VOMITING; Start at 19:00 Al Hydroxide/Mg Hydroxide (Mylanta Plus Xs) 30 ml PRN Q3HRS PRN PO HEARTBURN / GAS; Start 07/24/17 at 19:00 Calcium Carbonate/ Glycine (Tums) 500 mg PRN Q3HRS PRN PO UPSET STOMACH Last administered on 07/25/17 05:06; Start 07/24/17 at 19:00 Oxycodone HCl (Roxicodone) 5 mg PRN Q3HRS PRN PO BREAKTHROUGH PAIN Last administered on 07/26/17 11:43; Start 07/24/17 at 19:00 Morphine Sulfate 1 mg PRN Q1HR PRN IV PAIN Last administered on 07/25/17 05: 02; Start 07/24/17 at 19:00 Ketorolac Tromethamine (Toradol) 15 mg PRN Q6HRS PRN IV PAIN Last administered on 07/24/17 23:50; Start 07/24/17 at 19:00; Stop 07/29/17 at 18:59 Acetaminophen (Tylenol) 650 mg PRN Q6HRS PRN PO Headaches, Temp > 101.5F; Start 07/24/17 at 19:00 Ibuprofen (Motrin) 400 mg PRN Q6HRS PRN PO MILD PAIN Last administered on 07/26 08:43; Start 07/24/17 at 19:00 Docusate Sodium (Colace) 100 mg BID PO Last administered on 07/26/17 08:43; Start 07/24/17 at 21:00 Magnesium Hydroxide (Milk Of Magnesia) 2,400 mg PRN Q12HR PRN PO CONSTIPATION; Start 07/24/17 at 19:00 Bisacodyl (Dulcolax Supp) 10 mg PRN DAILY PRN RI CONSTIPATION; Start 07/24/17 at 19:00 Enoxaparin Sodium (Lovenox 40mg Syringe) 40 mg Q24H SQ Last administered on 08:44; Start 07/25/17 at 09:00 Lidocaine (Lidoderm) 1 patch DAILY TD Last administered on 07/26/17 08:44; Start 07/24/17 at 21:00 Atorvastatin Calcium (Lipitor) 40 mg QHS PO Last administered on 07/25/17 20: 00; Start 07/25/17 at 21:00 Clonazepam (KlonoPIN) 1 mg BID PO Last administered on 07/26/17 08:43; Start 07/25/17 at 09:00 Tizanidine HCl (Zanaflex) 4 mg PRN Q8HRS PRN PO MUSCLE SPASMS; Start 07/24/17 at 22:45 Bupropion HCl (Wellbutrin Xl) 300 mg DAILY PO Last administered on 07/26/17 08:43; Start 07/25/17 at 09:00 Lubiprostone (Amitiza) 24 mcg BIDWMEALS PO Last administered on 07/26/17 08: 43; Start 07/25/17 at 08:00 Lurasidone HCl (Latuda) 120 mg DAILYWSUP PO Last administered on 07/25/17 17: 15; Start 07/25/17 at 17:00 Non-Formulary Medication 1 each HS PO ; Start 07/25/17 at 21:00; Status UNV Losartan Potassium (Cozaar) 50 mg DAILY PO Last administered on 07/26/17 08: 44; Start 07/25/17 at 09:00 Influenza Virus Vaccine Quadrival (Fluarix Quad [id number] Syringe) 0.5 ml ONCE ONCE VAX IM Last administered on 07/26/17 11:59; Start 07/26/17 at 10:00; Stop 07/26/17 at 10:01; Status DC Gabapentin (Neurontin) 300 mg BID PO Last administered on 07/26/17 08:43; Start 07/25/17 at 09:00 Gadobutrol (Gadavist) 4.5 mmol 1X ONCE IV Last administered on 10/15/17at 11: 13; Start 07/26/17 at 11:00; Stop 07/26/17 at 11:01; Status DC Active Scripts Active Morphine Sulfate 15 Mg Tablet 1 Tab PO PRN Q6-8HRS PRN Naproxen 375 Mg Tablet 375 Mg PO BID PRN Reported Tizanidine Hcl 4 Mg Tablet 4 Mg PO PRN Q8HRS PRN Amitiza (Lubiprostone) 24 Mcg Capsule 24 Mcg PO BID Stool Softener (Docusate Sodium) 100 Mg Capsule 100 Mg PO DAILY Melatonin 5 Mg Tablet (Melatonin/Pyridoxine Hcl (B6)) 1 Each Tablet 1 Each PO HS Latuda (Lurasidone Hcl) 120 Mg Tablet 120 Mg PO DAILYWSUP Bupropion Xl (Bupropion Hcl) 300 Mg Tab.er.24h 300 Mg PO DAILY Alendronate Sodium 70 Mg Tablet 70 Mg PO WEEKLY Ibuprofen 600 Mg Tablet 600 Mg PO Q6H PRN Hydrocodone-Apap 5-325 (Hydrocodone Bit/Acetaminophen) 1 Each Tablet 1 Tab PO PRN Q6HRS PRN Vitamin D-3 (Cholecalciferol (Vitamin D3)) 2,000 Unit Tablet 5,000 Unit PO WEEKLY Losartan Potassium 100 Mg Tablet 50 Mg PO DAILY Amlodipine Besylate 10 Mg Tablet 10 Mg PO DAILY Atorvastatin Calcium 40 Mg Tablet 40 Mg PO DAILY Hydrochlorothiazide Capsule (Hydrochlorothiazide) 12.5 Mg Capsule 25 Mg PO DAILY Potassium Chloride 20 Meq Tab.er.prt 20 Meq PO DAILY Maxalt (Rizatriptan Benzoate) 10 Mg Tablet 10 Mg PO PRN PRN Clonazepam 1 Mg Tablet 1 Mg PO BID Vitals/I & O Vital Sign - Last 24 Hours 07/25/17 07/25/17 07/25/17 07/25/17 15:00 19:00 20:00 20:01 Temp 98.4 97.7 98.4 97.7 Pulse 81 Resp 18 B/P (MAP) 150/80 (103) 172/83 (112) Pulse Ox 92 90 O2 Delivery Room Air Room Air Nasal Cannula Room Air O2 Flow Rate 1.0 07/25/17 07/25/17 07/26/17 07/26/17 21:01 23:00 03:00 07:00 Temp 97.7 97.5 97.5 97.7 97.5 97.5 Pulse 79 81 71 Resp 18 18 16 B/P (MAP) 164/92 (116) 133/65 (87) 123/71 (88) Pulse Ox 95 95 94 93 O2 Delivery Nasal Cannula Nasal Cannula Nasal Cannula Nasal Cannula O2 Flow Rate 2.0 2.0 2.0 2.0 07/26/17 07/26/17 07/26/17 08:00 08:44 11:43 Pulse 71 Resp 18 B/P (MAP) 123/71 Pulse Ox 93 O2 Delivery Nasal Cannula Nasal Cannula O2 Flow Rate 2.0 2.0 BRITNEY SUMMERS III DO Jul 26, 2017 12:55
--- NOTE | 2017-07-26 13:52 | RAD ---
MRI study of the cervical spine with and without contrast Clinical indications: Unsteady gait. Recent falls. Bilateral arm radiculopathy. Muscle atrophy of the hands. Technique: Postcontrast enhanced MRI sequences of the cervical spine were performed in the sagittal and axial planes. A total of 4.5 cc of Gadavist was given intravenously. Comparison: February 17, 2017. Findings: No bone marrow edema or marrow infiltrative process is seen. No discitis is evident. Alignment is normal. Again seen is a focus of increased signal involving the cervical cord at the C5-6 level seen best on the STIR sagittal sequence. This has not changed significantly. There is mild enhancement here. No other focus of cervical cord edema is evident. No progressive atrophy of the cervical cord is seen. No cerebellar tonsillar ectopia is seen. At C2-3, no spinal canal stenosis or focal disc protrusion or neural frontal narrowing is seen. At C3-4, mild degenerative endplate spurring and diffuse disc bulging is seen. No significant spinal canal stenosis or neural foraminal narrowing is seen. At C4-5, mild degenerative endplate spurring and diffuse disc bulging is seen. No significant spinal canal stenosis or neural foraminal narrowing is seen. At C5-6, moderate degenerative endplate spurring and mild diffuse disc bulging is seen. This narrows the spinal canal down to 8 mm. There is moderate narrowing of left neural foramen and severe narrowing of the right neural foramen. These findings are unchanged. At C6-7, mild degenerative endplate spurring and diffuse disc bulging is seen. There is severe narrowing of the left neural foramen and moderate narrowing of the right neural foramen. These findings are unchanged. At C7-T1, no focal disc protrusion or spinal canal stenosis or neural foraminal narrowing is seen. IMPRESSION: Persistent cervical cord edema at the C5-6 level with enhancement. Enhancement may be seen with inflammation. Therefore this may be seen with myelitis or demyelinating process. Tumor is considered less likely given the lack of enlargement of the cord and stability from the previous study. There is no progressive cord atrophy here. There is moderate spinal canal stenosis at this level. This could be an etiology for cord edema. Overall stable cervical spine MRI from the previous study.
--- NOTE | 2017-07-26 14:28 | PDOC ---
PROGRESS NOTES Assessment Assessment C5-6 cord edema, myelitis? Gait instability. Generalized weakness. Fall. C-spine stenosis. Degenerative spine disease. Muscular atrophy, UE. HTN HLD Thyroid nodule. Schizophrenia. Bipolar disorder with panic attack. L2 old fracture s/p vertebroplasty. RECOMMENDATIONS/PLAN: Patient refused LP for CSF exam. Decadron 4 mg IV q6h. Thyroid US pending. Treat medical diseases. OT/PT. C-spine MRI w/wo contrast on 07/26/17: C5 C6 cord edema. Myelitis? HISTORY OF THE PRESENT ILLNESS: 66-y-old female patient complaints of generalized weakness for about 2 months and fall this time. She stated her gait was not stable and easily get fall. she had L2 fracture before and received surgical treatment. No urinary or bowel dysfunction so far. Past Medical History Cardiovascular: HTN, Hyperlipidemia CENTRAL NERVOUS SYSTEM: Migraine Psych: Bipolar, Schizophrenia Musculoskeletal: low back pain Endocrine: Osteoporosis Past Surgical History Tonsillectomy Hysterectomy L-spine vertebroplasty Family History Her mother had muscular atrophy in hands as well. Social History Smoke: No ALCOHOL: none Drugs: None ALLERGY: Reviewed. REVIEW OF SYSTEMS: Constitutional: Malnutrition. Head: No recent traumatic brain or head injury. Skin: No edema, or rash. Ear: No infection. Eyes: No vision loss or color blindness. Nose: No bleeding or purulent discharges. Hearing: No hearing decrease. Neck: No injury. Breast: No history of cancer, masses,or discharges. Cardiac: HTN, HLD. Pulmonary: No COPD. GI: No GI ulcer, GI bleeding. Urinary/genital: UTI. Endocrinologic: No cousin face, craniofacial dysmorphism, polydactyly. Skeletomuscular: Generalized weakness. Neurological: see HP. Psychiatric: Denies drug use/abuse. Otherwise, not [id number] review of systems. PHYSICAL EXAMINATION: General appearance is in subacute distress. HEENT: Normocephalic and nontraumatic. Eyes, nose, ears, and throat are unremarkable. Neck is supple. No lymphadenopathy. No crepitus. Cardiovascular: S1, S2, regular rate and rhythm. Pulmonary: Clear to auscultation bilaterally. Abdomen: Bowel sounds are positive. Abdomen is soft, nontender, and nondistended. Extremities: No rash, lesions, or edema. No restriction of range of motion NEUROLOGICAL EXAMINATION: Alert Oriented to time, place and person. PERRL. EOMI. CN: no focal findings. Muscle tone: within normal. Muscle strength: 4 DTR: 2- Plantar reflex: Flexor response bilaterally Gait: not examined in bed. Sensory exam: no abnormal findings. No cerebellar signs elicited. F-T-N test fine. Significant muscular atrophy in hands. Objective Objective Vital Signs Date Time Temp Pulse Resp B/P (MAP) Pulse Ox O2 Delivery O2 Flow Rate FiO2 07/26/17 12:45 18 93 Nasal Cannula 2.0 07/26/17 08:44 71 123/71 07/26/17 07:00 97.5 97.5 Vitals Signs Vitals VS - Last 72 Hours, by Label Date Time Temp Pulse Resp B/P (MAP) Pulse Ox O2 Delivery O2 Flow Rate FiO2 07/26/17 12:45 18 93 Nasal Cannula 2.0 07/26/17 11:43 18 93 Nasal Cannula 2.0 07/26/17 08:44 71 123/71 07/26/17 08:00 Nasal Cannula 2.0 07/26/17 07:00 97.5 71 16 123/71 (88) 93 Nasal Cannula 2.0 97.5 07/26/17 03:00 97.5 81 18 133/65 (87) 94 Nasal Cannula 2.0 97.5 07/25/17 23:00 97.7 79 18 164/92 (116) 95 Nasal Cannula 2.0 97.7 07/25/17 20:01 Room Air 07/25/17 20:00 Nasal Cannula 1.0 07/25/17 19:00 97.7 81 18 172/83 (112) 90 Room Air 97.7 07/25/17 15:00 98.4 150/80 (103) 92 Room Air 98.4 07/25/17 11:28 98.2 79 18 123/76 (92) 93 Room Air 98.2 07/25/17 08:33 20 Room Air 07/25/17 08:32 73 129/80 07/25/17 08:00 Room Air 1.0 07/25/17 07:43 98.1 73 20 129/80 (96) 97 Nasal Cannula 1.0 98.1 Laboratory Laboratory Laboratory Tests Test 07/26/17 04:00 White Blood Count 4.6 x10^3/uL (4.0-11.0) Red Blood Count 4.07 x10^6/uL (3.50-5.40) Hemoglobin 11.7 g/dL (12.0-15.5) Hematocrit 35.4 % (36.0-47.0) Mean Corpuscular Volume 87 fL (79-100) Mean Corpuscular Hemoglobin 29 pg (25-35) Mean Corpuscular Hemoglobin Concent 33 g/dL (31-37) Red Cell Distribution Width 15.4 % (11.5-14.5) Platelet Count 141 x10^3/uL (140-400) Neutrophils (%) (Auto) 49 % (31-73) Lymphocytes (%) (Auto) 40 % (24-48) Monocytes (%) (Auto) 8 % (0-9) Eosinophils (%) (Auto) 2 % (0-3) Basophils (%) (Auto) 1 % (0-3) Neutrophils # (Auto) 2.2 x10^3uL (1.8-7.7) Lymphocytes # (Auto) 1.8 x10^3/uL (1.0-4.8) Monocytes # (Auto) 0.4 x10^3/uL (0.0-1.1) Eosinophils # (Auto) 0.1 x10^3/uL (0.0-0.7) Basophils # (Auto) 0.0 x10^3/uL (0.0-0.2) Sodium Level 142 mmol/L (136-145) Potassium Level 3.8 mmol/L (3.5-5.1) Chloride Level 104 mmol/L (98-107) Carbon Dioxide Level 37 mmol/L (21-32) Anion Gap 1 (6-14) Blood Urea Nitrogen 13 mg/dL (7-20) Creatinine 0.6 mg/dL (0.6-1.0) Estimated GFR (Cockcroft-Gault) 100.0 Glucose Level 88 mg/dL (70-99) Calcium Level 8.9 mg/dL (8.5-10.1) Medication Medications Current Medications Atorvastatin Calcium (Lipitor) 40 mg QHS PO Last administered on 07/25/17 20: 00; Start 07/25/17 at 21:00 Gadobutrol (Gadavist) 4.5 mmol 1X ONCE IV Last administered on 07/26/17 11: 13; Start 07/26/17 at 11:00; Stop 07/26/17 at 11:01; Status DC Influenza Virus Vaccine Quadrival (Fluarix Quad Syringe) 0.5 ml ONCE ONCE VAX IM Last administered on 07/26/17 11:59; Start 07/26/17 at 10:00; Stop 07/26/17 at 10:01; Status DC Lurasidone HCl (Latuda) 120 mg DAILYWSUP PO Last administered on 07/25/17 17: 15; Start 07/25/17 at 17:00 Non-Formulary Medication 1 each HS PO ; Start 07/25/17 at 21:00; Status UNV Comment Review of Relevant I have reviewed the following items brandie (where applicable) has been applied. JASIEL VICK MD Jul 26, 2017 14:28
[2017-07-26 15:00] VITALS: BP 114/71
--- NOTE | 2017-07-26 15:40 | RAD ---
Thyroid ultrasound Clinical indications: Thyroid nodules. Comparison: None available. Findings: The longitudinal and AP and transverse dimensions of the right lobe are 4.2 cm and 0.9 cm and 2.6 image respectively. Multiple solid nodules of the right lobe are seen. The largest is seen within the superior pole measuring 14 mm. The second largest is seen within the mid aspect medially measuring 10 mm. There is a colloid cyst of the right side of the isthmus measuring 10 mm. The isthmus measures 4 mm in thickness. The longitudinal and AP and transverse dimensions of the left lobe are 3.6 cm and 1.4 cm and 1.6 cm respectively. Multiple nodules are evident. The largest is seen within the mid aspect measuring 6 mm in size. Additional colloid cysts are seen. IMPRESSION: Multinodular goiter. Recommend a follow-up sonogram in 6 months to ensure stability.
[2017-07-26] MEDS: LURASIDONE 40 MG TABLET. PO SCH (16:39)
[2017-07-26] MEDS: ONDANSETRON PF 4 MG/2 ML VIAL. IV PRN (17:28)
[2017-07-26] MEDS: DEXAMETHASONE SOD PHOS 4 MG/ML VIAL IV SCH (17:28)
[2017-07-26 19:15] VITALS: BP 131/78
[2017-07-26] MEDS: ATORVASTATIN CALCIUM 40 MG TABLET. PO SCH (20:53)
[2017-07-26 23:11] VITALS: BP 128/72
[2017-07-27] VITALS (7 sets, daily range): BP systolic 125–163; BP diastolic 71–99
[2017-07-27] MEDS: DEXAMETHASONE SOD PHOS 4 MG/ML VIAL IV SCH ×4 (00:34→18:24)
[2017-07-27] MEDS: oxyCODONE IR 5 MG TABLET PO PRN ×4 (00:42→20:00)
[2017-07-27 04:58] LABS: BASO % 0 % (0-3); EOS % 0 % (0-3); HEMATOCRIT 37.9 % (36.0-47.0); HEMOGLOBIN 12.5 g/dL (12.0-15.5); LYMPH # 0.4 x10^3/uL (1.0-4.8); LYMPH % 10 % (24-48); MEAN CORPUSCULAR HEMOGLOBIN 29 pg (25-35); MEAN CORPUSCULAR HGB CONC 33 g/dL (31-37); MEAN CORPUSCULAR VOLUME 87 fL (79-100); MONO % 1 % (0-9); NEUT % 89 % (31-73); PLATELET COUNT 149 x10^3/uL (140-400); RED BLOOD COUNT 4.37 x10^6/uL (3.50-5.40); RED CELL DISTRIBUTION WIDTH 15.4 % (11.5-14.5); WHITE BLOOD COUNT 4.3 x10^3/uL (4.0-11.0)
[2017-07-27 07:03] LABS: CALCIUM 9.2 mg/dL (8.5-10.1); CREATININE 0.5 mg/dL (0.6-1.0); GFR 123.4; POTASSIUM 4.4 mmol/L (3.5-5.1)
[2017-07-27] MEDS: CALCIUM CARBONATE 500 MG TAB.CHEW PO PRN (07:14)
[2017-07-27] MEDS: DOCUSATE SODIUM 100 MG CAPSULE. PO SCH ×2 (08:58→21:58)
[2017-07-27] MEDS: LOSARTAN POTASSIUM 50 MG TABLET. PO SCH (08:58)
[2017-07-27] MEDS: buPROPion XL 150 MG TAB.ER.24H. PO SCH (08:58)
[2017-07-27] MEDS: clonazePAM 1 MG TABLET PO SCH ×2 (08:59→21:58)
[2017-07-27] MEDS: GABAPENTIN 300 MG CAPSULE. PO SCH ×2 (08:59→21:58)
[2017-07-27] MEDS: LUBIPROSTONE 8 MCG CAPSULE PO SCH ×2 (08:59→18:23)
[2017-07-27] MEDS: ENOXAPARIN 40 MG/0.4 ML SYRINGE. SQ SCH (09:00)
[2017-07-27] MEDS: LIDOCAINE (700MG/PATCH) PATCH. TD SCH (09:05)
--- NOTE | 2017-07-27 09:37 | PDOC ---
PROGRESS NOTES Subjective Subjective No new complaints. Objective Objective Vital Signs Date Time Temp Pulse Resp B/P (MAP) Pulse Ox O2 Delivery O2 Flow Rate FiO2 07/27/17 08:58 77 125/80 07/27/17 08:57 Nasal Cannula 2.0 07/27/17 07:00 97.9 18 98 97.9 Physical Exam Physical Exam She is alert and supine in bed and seems to be in no acute distress and she continues with generalized muscle weakness,more so of hand intrinsics and dorsiflexor muscles of her feet. Assessment Assessment Problems Medical Problems: (1) Fall Status: Acute (2) Head injury Status: Acute (3) Scalp laceration Status: Acute Plan Plan of Care To continue present rehab efforts and to SNF when medically stable. Comment Review of Relevant I have reviewed the following items brandie (where applicable) has been applied. Labs Laboratory Tests Test 07/26/17 04:00 07/27/17 04:00 White Blood Count 4.6 x10^3/uL (4.0-11.0) 4.3 x10^3/uL (4.0-11.0) Red Blood Count 4.07 x10^6/uL (3.50-5.40) 4.37 x10^6/uL (3.50-5.40) Hemoglobin 11.7 g/dL (12.0-15.5) 12.5 g/dL (12.0-15.5) Hematocrit 35.4 % (36.0-47.0) 37.9 % (36.0-47.0) Mean Corpuscular Volume 87 fL (79-100) 87 fL (79-100) Mean Corpuscular Hemoglobin 29 pg (25-35) 29 pg (25-35) Mean Corpuscular Hemoglobin Concent 33 g/dL (31-37) 33 g/dL (31-37) Red Cell Distribution Width 15.4 % (11.5-14.5) 15.4 % (11.5-14.5) Platelet Count 141 x10^3/uL (140-400) 149 x10^3/uL (140-400) Neutrophils (%) (Auto) 49 % (31-73) 89 % (31-73) Lymphocytes (%) (Auto) 40 % (24-48) 10 % (24-48) Monocytes (%) (Auto) 8 % (0-9) 1 % (0-9) Eosinophils (%) (Auto) 2 % (0-3) 0 % (0-3) Basophils (%) (Auto) 1 % (0-3) 0 % (0-3) Neutrophils # (Auto) 2.2 x10^3uL (1.8-7.7) 3.8 x10^3uL (1.8-7.7) Lymphocytes # (Auto) 1.8 x10^3/uL (1.0-4.8) 0.4 x10^3/uL (1.0-4.8) Monocytes # (Auto) 0.4 x10^3/uL (0.0-1.1) 0.1 x10^3/uL (0.0-1.1) Eosinophils # (Auto) 0.1 x10^3/uL (0.0-0.7) 0.0 x10^3/uL (0.0-0.7) Basophils # (Auto) 0.0 x10^3/uL (0.0-0.2) 0.0 x10^3/uL (0.0-0.2) Sodium Level 142 mmol/L (136-145) 141 mmol/L (136-145) Potassium Level 3.8 mmol/L (3.5-5.1) 4.4 mmol/L (3.5-5.1) Chloride Level 104 mmol/L (98-107) 103 mmol/L (98-107) Carbon Dioxide Level 37 mmol/L (21-32) 34 mmol/L (21-32) Anion Gap 1 (6-14) 4 (6-14) Blood Urea Nitrogen 13 mg/dL (7-20) 15 mg/dL (7-20) Creatinine 0.6 mg/dL (0.6-1.0) 0.5 mg/dL (0.6-1.0) Estimated GFR (Cockcroft-Gault) 100.0 123.4 Glucose Level 88 mg/dL (70-99) 132 mg/dL (70-99) Calcium Level 8.9 mg/dL (8.5-10.1) 9.2 mg/dL (8.5-10.1) Laboratory Tests Test 07/27/17 04:00 White Blood Count 4.3 x10^3/uL (4.0-11.0) Red Blood Count 4.37 x10^6/uL (3.50-5.40) Hemoglobin 12.5 g/dL (12.0-15.5) Hematocrit 37.9 % (36.0-47.0) Mean Corpuscular Volume 87 fL (79-100) Mean Corpuscular Hemoglobin 29 pg (25-35) Mean Corpuscular Hemoglobin Concent 33 g/dL (31-37) Red Cell Distribution Width 15.4 % (11.5-14.5) Platelet Count 149 x10^3/uL (140-400) Neutrophils (%) (Auto) 89 % (31-73) Lymphocytes (%) (Auto) 10 % (24-48) Monocytes (%) (Auto) 1 % (0-9) Eosinophils (%) (Auto) 0 % (0-3) Basophils (%) (Auto) 0 % (0-3) Neutrophils # (Auto) 3.8 x10^3uL (1.8-7.7) Lymphocytes # (Auto) 0.4 x10^3/uL (1.0-4.8) Monocytes # (Auto) 0.1 x10^3/uL (0.0-1.1) Eosinophils # (Auto) 0.0 x10^3/uL (0.0-0.7) Basophils # (Auto) 0.0 x10^3/uL (0.0-0.2) Sodium Level 141 mmol/L (136-145) Potassium Level 4.4 mmol/L (3.5-5.1) Chloride Level 103 mmol/L (98-107) Carbon Dioxide Level 34 mmol/L (21-32) Anion Gap 4 (6-14) Blood Urea Nitrogen 15 mg/dL (7-20) Creatinine 0.5 mg/dL (0.6-1.0) Estimated GFR (Cockcroft-Gault) 123.4 Glucose Level 132 mg/dL (70-99) Calcium Level 9.2 mg/dL (8.5-10.1) Medications Current Medications Diphtheria/ Tetanus/Acell Pertussis (Boostrix) 0.5 ml ONCE ONCE VAX IM ; Start 07/24/17 at 17:00; Stop 07/24/17 at 17:56; Status DC Lidocaine/ Epinephrine (Xylocaine 1%-Epi 1:100,000) 20 ml 1X ONCE IJ Last administered on 07/24/17 17:01; Start 07/24/17 at 17:00; Stop 07/24/17 at 17 :01; Status DC Ondansetron HCl (Zofran Odt) 4 mg 1X ONCE PO Last administered on 07/24/17 17:15; Start 07/24/17 at 17:15; Stop 07/24/17 at 17:16; Status DC Acetaminophen (Tylenol) 650 mg 1X ONCE PO Last administered on 07/24/17 17: 14; Start 07/24/17 at 17:15; Stop 07/24/17 at 17:16; Status DC Ondansetron HCl (Zofran Odt) 4 mg STK-MED ONCE .ROUTE ; Start 07/24/17 at 17:12 ; Stop 07/24/17 at 17:13; Status DC Ondansetron HCl (Zofran) 4 mg PRN Q6HRS PRN IV NAUSEA/VOMITING Last administered on 07/26/17 17:28; Start 07/24/17 at 19:00 Prochlorperazine Edisylate (Compazine) 10 mg PRN Q6HRS PRN IV NAUSEA/VOMITING; Start 07/24/17 at 19:00 Prochlorperazine (Compazine) 25 mg PRN Q12HR PRN NC NAUSEA/VOMITING; Start at 19:00 Al Hydroxide/Mg Hydroxide (Mylanta Plus Xs) 30 ml PRN Q3HRS PRN PO HEARTBURN / GAS; Start 07/24/17 at 19:00 Calcium Carbonate/ Glycine (Tums) 500 mg PRN Q3HRS PRN PO UPSET STOMACH Last administered on 07/27/17 07:14; Start 07/24/17 at 19:00 Oxycodone HCl (Roxicodone) 5 mg PRN Q3HRS PRN PO BREAKTHROUGH PAIN Last administered on 07/27/17 07:37; Start 07/24/17 at 19:00 Morphine Sulfate 1 mg PRN Q1HR PRN IV PAIN Last administered on 07/25/17 05: 02; Start 07/24/17 at 19:00 Ketorolac Tromethamine (Toradol) 15 mg PRN Q6HRS PRN IV PAIN Last administered on 07/24/17 23:50; Start 07/24/17 at 19:00; Stop 07/29/17 at 18:59 Acetaminophen (Tylenol) 650 mg PRN Q6HRS PRN PO Headaches, Temp > 101.5F; Start 07/24/17 at 19:00 Ibuprofen (Motrin) 400 mg PRN Q6HRS PRN PO MILD PAIN Last administered on 07/26 08:43; Start 07/24/17 at 19:00 Docusate Sodium (Colace) 100 mg BID PO Last administered on 07/27/17 08:58; Start 07/24/17 at 21:00 Magnesium Hydroxide (Milk Of Magnesia) 2,400 mg PRN Q12HR PRN PO CONSTIPATION; Start 07/24/17 at 19:00 Bisacodyl (Dulcolax Supp) 10 mg PRN DAILY PRN NC CONSTIPATION; Start 07/24/17 at 19:00 Enoxaparin Sodium (Lovenox 40mg Syringe) 40 mg Q24H SQ Last administered on 08:44; Start 07/25/17 at 09:00 Lidocaine (Lidoderm) 1 patch DAILY TD Last administered on 07/27/17 09:05; Start 07/24/17 at 21:00 Atorvastatin Calcium (Lipitor) 40 mg QHS PO Last administered on 07/26/17 20: 53; Start 07/25/17 at 21:00 Clonazepam (KlonoPIN) 1 mg BID PO Last administered on 07/27/17 08:59; Start 07/25/17 at 09:00 Tizanidine HCl (Zanaflex) 4 mg PRN Q8HRS PRN PO MUSCLE SPASMS; Start 07/24/17 at 22:45 Bupropion HCl (Wellbutrin Xl) 300 mg DAILY PO Last administered on 07/27/17 08:58; Start 07/25/17 at 09:00 Lubiprostone (Amitiza) 24 mcg BIDWMEALS PO Last administered on 07/27/17 08: 59; Start 07/25/17 at 08:00 Lurasidone HCl (Latuda) 120 mg DAILYWSUP PO Last administered on 07/26/17 16: 39; Start 07/25/17 at 17:00 Non-Formulary Medication 1 each HS PO ; Start 07/25/17 at 21:00; Status UNV Losartan Potassium (Cozaar) 50 mg DAILY PO Last administered on 07/27/17 08: 58; Start 07/25/17 at 09:00 Influenza Virus Vaccine Quadrival (Fluarix Quad 0020-7710 Syringe) 0.5 ml ONCE ONCE VAX IM Last administered on 07/26/17 11:59; Start 07/26/17 at 10:00; Stop 07/26/17 at 10:01; Status DC Gabapentin (Neurontin) 300 mg BID PO Last administered on 07/27/17 08:59; Start 07/25/17 at 09:00 Gadobutrol (Gadavist) 4.5 mmol 1X ONCE IV Last administered on 07/26/17 11: 13; Start 07/26/17 at 11:00; Stop 07/26/17 at 11:01; Status DC Dexamethasone Sodium Phosphate (Decadron) 4 mg Q6HRS IV Last administered on 06:00; Start 07/26/17 at 18:00 Active Scripts Active Morphine Sulfate 15 Mg Tablet 1 Tab PO PRN Q6-8HRS PRN Naproxen 375 Mg Tablet 375 Mg PO BID PRN Reported Tizanidine Hcl 4 Mg Tablet 4 Mg PO PRN Q8HRS PRN Amitiza (Lubiprostone) 24 Mcg Capsule 24 Mcg PO BID Stool Softener (Docusate Sodium) 100 Mg Capsule 100 Mg PO DAILY Melatonin 5 Mg Tablet (Melatonin/Pyridoxine Hcl (B6)) 1 Each Tablet 1 Each PO HS Latuda (Lurasidone Hcl) 120 Mg Tablet 120 Mg PO DAILYWSUP Bupropion Xl (Bupropion Hcl) 300 Mg Tab.er.24h 300 Mg PO DAILY Alendronate Sodium 70 Mg Tablet 70 Mg PO WEEKLY Ibuprofen 600 Mg Tablet 600 Mg PO Q6H PRN Hydrocodone-Apap 5-325 (Hydrocodone Bit/Acetaminophen) 1 Each Tablet 1 Tab PO PRN Q6HRS PRN Vitamin D-3 (Cholecalciferol (Vitamin D3)) 2,000 Unit Tablet 5,000 Unit PO WEEKLY Losartan Potassium 100 Mg Tablet 50 Mg PO DAILY Amlodipine Besylate 10 Mg Tablet 10 Mg PO DAILY Atorvastatin Calcium 40 Mg Tablet 40 Mg PO DAILY Hydrochlorothiazide Capsule (Hydrochlorothiazide) 12.5 Mg Capsule 25 Mg PO DAILY Potassium Chloride 20 Meq Tab.er.prt 20 Meq PO DAILY Maxalt (Rizatriptan Benzoate) 10 Mg Tablet 10 Mg PO PRN PRN Clonazepam 1 Mg Tablet 1 Mg PO BID Vitals/I & O Vital Sign - Last 24 Hours 07/26/17 07/26/17 07/26/17 07/26/17 11:00 11:43 15:00 16:40 Temp 97.7 98.2 97.7 98.2 Pulse 81 97 Resp 16 18 16 18 B/P (MAP) 124/75 (91) 114/71 (85) Pulse Ox 92 93 90 90 O2 Delivery Room Air Nasal Cannula Room Air Nasal Cannula O2 Flow Rate 2.0 2.0 07/26/17 07/26/17 07/26/17 07/26/17 19:15 19:53 20:00 23:11 Temp 98.6 98.4 98.6 98.4 Pulse 85 80 Resp 16 20 18 B/P (MAP) 131/78 (95) 128/72 (90) Pulse Ox 92 90 93 O2 Delivery Nasal Cannula Nasal Cannula Room Air Nasal Cannula O2 Flow Rate 2.0 2.0 1.0 2.0 07/27/17 07/27/17 07/27/17 07/27/17 00:42 01:42 03:11 03:49 Temp 98.0 98.0 Pulse 90 88 Resp 20 20 18 B/P (MAP) 163/99 (120) 132/78 (96) Pulse Ox 93 96 96 O2 Delivery Nasal Cannula Room Air O2 Flow Rate 2.0 2.0 07/27/17 07/27/17 07/27/17 07/27/17 07:00 07:37 08:57 08:58 Temp 97.9 97.9 Pulse 77 77 Resp 18 B/P (MAP) 125/80 (95) 125/80 Pulse Ox 98 O2 Delivery Nasal Cannula Nasal Cannula Nasal Cannula O2 Flow Rate 2.0 2.0 2.0 NESSA BUCHANAN MD Jul 27, 2017 09:37
--- NOTE | 2017-07-27 10:14 | PDOC ---
PROGRESS NOTES Chief Complaint Chief Complaint 1. Acute on chronic back pain, worse now after a fall 2. Hx T12 fx in past admits 3. FTT sxs, generalized weakness, worsening 4. HTN, dyslipidemia, schizophrenia - chronic stable 5. Head lac s.p 6-7 sarah at ER - will come off after 7 days per ER MD 6. Tremors, likely essential - consult neuro,. on clonazepam at home, i have continued History of Present Illness History of Present Illness MRI C spine shows: IMPRESSION: Persistent cervical cord edema at the C5-6 level with enhancement. Enhancement may be seen with inflammation. Therefore this may be seen with myelitis or demyelinating process. Tumor is considered less likely given the lack of enlargement of the cord and stability from the previous study. There is no progressive cord atrophy here. There is moderate spinal canal stenosis at this level. This could be an etiology for cord edema. Overall stable cervical spine MRI from the previous study. STill some neck pain, weak, Agreeable to have LP today - josef coker PLAN: LP today CPM PT.OT FOllow physiatry recs Vitals Vitals Vital Signs Date Time Temp Pulse Resp B/P (MAP) Pulse Ox O2 Delivery O2 Flow Rate FiO2 07/27/17 09:25 Room Air 07/27/17 08:58 77 125/80 07/27/17 08:57 2.0 07/27/17 07:00 97.9 18 98 97.9 Physical Exam General: Alert, Oriented X3, Cooperative, No acute distress, Other (visible tremors which seem to be worse with movment) Heart: Regular rate, Normal S1, Normal S2 Lungs: Clear Abdomen: Normal bowel sounds, Soft, No tenderness, No hepatosplenomegaly, No masses Extremities: No clubbing, No cyanosis, No edema, Normal pulses, No tenderness/ swelling Skin: No rashes, No breakdown, Other (OA deformiteis both hands, hand tremor) Labs LABS Laboratory Tests Test 07/27/17 04:00 White Blood Count 4.3 x10^3/uL (4.0-11.0) Red Blood Count 4.37 x10^6/uL (3.50-5.40) Hemoglobin 12.5 g/dL (12.0-15.5) Hematocrit 37.9 % (36.0-47.0) Mean Corpuscular Volume 87 fL (79-100) Mean Corpuscular Hemoglobin 29 pg (25-35) Mean Corpuscular Hemoglobin Concent 33 g/dL (31-37) Red Cell Distribution Width 15.4 % (11.5-14.5) Platelet Count 149 x10^3/uL (140-400) Neutrophils (%) (Auto) 89 % (31-73) Lymphocytes (%) (Auto) 10 % (24-48) Monocytes (%) (Auto) 1 % (0-9) Eosinophils (%) (Auto) 0 % (0-3) Basophils (%) (Auto) 0 % (0-3) Neutrophils # (Auto) 3.8 x10^3uL (1.8-7.7) Lymphocytes # (Auto) 0.4 x10^3/uL (1.0-4.8) Monocytes # (Auto) 0.1 x10^3/uL (0.0-1.1) Eosinophils # (Auto) 0.0 x10^3/uL (0.0-0.7) Basophils # (Auto) 0.0 x10^3/uL (0.0-0.2) Sodium Level 141 mmol/L (136-145) Potassium Level 4.4 mmol/L (3.5-5.1) Chloride Level 103 mmol/L (98-107) Carbon Dioxide Level 34 mmol/L (21-32) Anion Gap 4 (6-14) Blood Urea Nitrogen 15 mg/dL (7-20) Creatinine 0.5 mg/dL (0.6-1.0) Estimated GFR (Cockcroft-Gault) 123.4 Glucose Level 132 mg/dL (70-99) Calcium Level 9.2 mg/dL (8.5-10.1) Review of Systems Review of Systems neck pain, weak, no soa, cp, abd pain, fevers, emesis Assessment and Plan Assessmemt and Plan Problems Medical Problems: (1) Fall Status: Acute (2) Head injury Status: Acute (3) Scalp laceration Status: Acute Problems: Comment Review of Relevant I have reviewed the following items brandie (where applicable) has been applied. Labs Laboratory Tests Test 07/26/17 04:00 07/27/17 04:00 White Blood Count 4.6 x10^3/uL (4.0-11.0) 4.3 x10^3/uL (4.0-11.0) Red Blood Count 4.07 x10^6/uL (3.50-5.40) 4.37 x10^6/uL (3.50-5.40) Hemoglobin 11.7 g/dL (12.0-15.5) 12.5 g/dL (12.0-15.5) Hematocrit 35.4 % (36.0-47.0) 37.9 % (36.0-47.0) Mean Corpuscular Volume 87 fL (79-100) 87 fL (79-100) Mean Corpuscular Hemoglobin 29 pg (25-35) 29 pg (25-35) Mean Corpuscular Hemoglobin Concent 33 g/dL (31-37) 33 g/dL (31-37) Red Cell Distribution Width 15.4 % (11.5-14.5) 15.4 % (11.5-14.5) Platelet Count 141 x10^3/uL (140-400) 149 x10^3/uL (140-400) Neutrophils (%) (Auto) 49 % (31-73) 89 % (31-73) Lymphocytes (%) (Auto) 40 % (24-48) 10 % (24-48) Monocytes (%) (Auto) 8 % (0-9) 1 % (0-9) Eosinophils (%) (Auto) 2 % (0-3) 0 % (0-3) Basophils (%) (Auto) 1 % (0-3) 0 % (0-3) Neutrophils # (Auto) 2.2 x10^3uL (1.8-7.7) 3.8 x10^3uL (1.8-7.7) Lymphocytes # (Auto) 1.8 x10^3/uL (1.0-4.8) 0.4 x10^3/uL (1.0-4.8) Monocytes # (Auto) 0.4 x10^3/uL (0.0-1.1) 0.1 x10^3/uL (0.0-1.1) Eosinophils # (Auto) 0.1 x10^3/uL (0.0-0.7) 0.0 x10^3/uL (0.0-0.7) Basophils # (Auto) 0.0 x10^3/uL (0.0-0.2) 0.0 x10^3/uL (0.0-0.2) Sodium Level 142 mmol/L (136-145) 141 mmol/L (136-145) Potassium Level 3.8 mmol/L (3.5-5.1) 4.4 mmol/L (3.5-5.1) Chloride Level 104 mmol/L (98-107) 103 mmol/L (98-107) Carbon Dioxide Level 37 mmol/L (21-32) 34 mmol/L (21-32) Anion Gap 1 (6-14) 4 (6-14) Blood Urea Nitrogen 13 mg/dL (7-20) 15 mg/dL (7-20) Creatinine 0.6 mg/dL (0.6-1.0) 0.5 mg/dL (0.6-1.0) Estimated GFR (Cockcroft-Gault) 100.0 123.4 Glucose Level 88 mg/dL (70-99) 132 mg/dL (70-99) Calcium Level 8.9 mg/dL (8.5-10.1) 9.2 mg/dL (8.5-10.1) Laboratory Tests Test 07/27/17 04:00 White Blood Count 4.3 x10^3/uL (4.0-11.0) Red Blood Count 4.37 x10^6/uL (3.50-5.40) Hemoglobin 12.5 g/dL (12.0-15.5) Hematocrit 37.9 % (36.0-47.0) Mean Corpuscular Volume 87 fL (79-100) Mean Corpuscular Hemoglobin 29 pg (25-35) Mean Corpuscular Hemoglobin Concent 33 g/dL (31-37) Red Cell Distribution Width 15.4 % (11.5-14.5) Platelet Count 149 x10^3/uL (140-400) Neutrophils (%) (Auto) 89 % (31-73) Lymphocytes (%) (Auto) 10 % (24-48) Monocytes (%) (Auto) 1 % (0-9) Eosinophils (%) (Auto) 0 % (0-3) Basophils (%) (Auto) 0 % (0-3) Neutrophils # (Auto) 3.8 x10^3uL (1.8-7.7) Lymphocytes # (Auto) 0.4 x10^3/uL (1.0-4.8) Monocytes # (Auto) 0.1 x10^3/uL (0.0-1.1) Eosinophils # (Auto) 0.0 x10^3/uL (0.0-0.7) Basophils # (Auto) 0.0 x10^3/uL (0.0-0.2) Sodium Level 141 mmol/L (136-145) Potassium Level 4.4 mmol/L (3.5-5.1) Chloride Level 103 mmol/L (98-107) Carbon Dioxide Level 34 mmol/L (21-32) Anion Gap 4 (6-14) Blood Urea Nitrogen 15 mg/dL (7-20) Creatinine 0.5 mg/dL (0.6-1.0) Estimated GFR (Cockcroft-Gault) 123.4 Glucose Level 132 mg/dL (70-99) Calcium Level 9.2 mg/dL (8.5-10.1) Medications Current Medications Diphtheria/ Tetanus/Acell Pertussis (Boostrix) 0.5 ml ONCE ONCE VAX IM ; Start 07/24/17 at 17:00; Stop 07/24/17 at 17:56; Status DC Lidocaine/ Epinephrine (Xylocaine 1%-Epi 1:100,000) 20 ml 1X ONCE IJ Last administered on 07/24/17 17:01; Start 07/24/17 at 17:00; Stop 07/24/17 at 17 :01; Status DC Ondansetron HCl (Zofran Odt) 4 mg 1X ONCE PO Last administered on 07/24/17 17:15; Start 07/24/17 at 17:15; Stop 07/24/17 at 17:16; Status DC Acetaminophen (Tylenol) 650 mg 1X ONCE PO Last administered on 07/24/17 17: 14; Start 07/24/17 at 17:15; Stop 07/24/17 at 17:16; Status DC Ondansetron HCl (Zofran Odt) 4 mg STK-MED ONCE .ROUTE ; Start 07/24/17 at 17:12 ; Stop 07/24/17 at 17:13; Status DC Ondansetron HCl (Zofran) 4 mg PRN Q6HRS PRN IV NAUSEA/VOMITING Last administered on 07/26/17 17:28; Start 07/24/17 at 19:00 Prochlorperazine Edisylate (Compazine) 10 mg PRN Q6HRS PRN IV NAUSEA/VOMITING; Start 07/24/17 at 19:00 Prochlorperazine (Compazine) 25 mg PRN Q12HR PRN [place] NAUSEA/VOMITING; Start at 19:00 Al Hydroxide/Mg Hydroxide (Mylanta Plus Xs) 30 ml PRN Q3HRS PRN PO HEARTBURN / GAS; Start 07/24/17 at 19:00 Calcium Carbonate/ Glycine (Tums) 500 mg PRN Q3HRS PRN PO UPSET STOMACH Last administered on 07/27/17 07:14; Start 07/24/17 at 19:00 Oxycodone HCl (Roxicodone) 5 mg PRN Q3HRS PRN PO BREAKTHROUGH PAIN Last administered on 07/27/17 07:37; Start 07/24/17 at 19:00 Morphine Sulfate 1 mg PRN Q1HR PRN IV PAIN Last administered on 07/25/17 05: 02; Start 07/24/17 at 19:00 Ketorolac Tromethamine (Toradol) 15 mg PRN Q6HRS PRN IV PAIN Last administered on 07/24/17 23:50; Start 07/24/17 at 19:00; Stop 07/29/17 at 18:59 Acetaminophen (Tylenol) 650 mg PRN Q6HRS PRN PO Headaches, Temp > 101.5F; Start 07/24/17 at 19:00 Ibuprofen (Motrin) 400 mg PRN Q6HRS PRN PO MILD PAIN Last administered on 07/26 08:43; Start 07/24/17 at 19:00 Docusate Sodium (Colace) 100 mg BID PO Last administered on 07/27/17 08:58; Start 07/24/17 at 21:00 Magnesium Hydroxide (Milk Of Magnesia) 2,400 mg PRN Q12HR PRN PO CONSTIPATION; Start 07/24/17 at 19:00 Bisacodyl (Dulcolax Supp) 10 mg PRN DAILY PRN [place] CONSTIPATION; Start 07/24/17 at 19:00 Enoxaparin Sodium (Lovenox 40mg Syringe) 40 mg Q24H SQ Last administered on 08:44; Start 07/25/17 at 09:00 Lidocaine (Lidoderm) 1 patch DAILY TD Last administered on 07/27/17 09:05; Start 07/24/17 at 21:00 Atorvastatin Calcium (Lipitor) 40 mg QHS PO Last administered on 07/26/17 20: 53; Start 07/25/17 at 21:00 Clonazepam (KlonoPIN) 1 mg BID PO Last administered on 07/27/17 08:59; Start 07/25/17 at 09:00 Tizanidine HCl (Zanaflex) 4 mg PRN Q8HRS PRN PO MUSCLE SPASMS; Start 07/24/17 at 22:45 Bupropion HCl (Wellbutrin Xl) 300 mg DAILY PO Last administered on 07/27/17 08:58; Start 07/25/17 at 09:00 Lubiprostone (Amitiza) 24 mcg BIDWMEALS PO Last administered on 07/27/17 08: 59; Start 07/25/17 at 08:00 Lurasidone HCl (Latuda) 120 mg DAILYWSUP PO Last administered on 07/26/17 16: 39; Start 07/25/17 at 17:00 Non-Formulary Medication 1 each HS PO ; Start 07/25/17 at 21:00; Status UNV Losartan Potassium (Cozaar) 50 mg DAILY PO Last administered on 07/27/17 08: 58; Start 07/25/17 at 09:00 Influenza Virus Vaccine Quadrival (Fluarix Quad [id number] Syringe) 0.5 ml ONCE ONCE VAX IM Last administered on 07/26/17 11:59; Start 07/26/17 at 10:00; Stop 07/26/17 at 10:01; Status DC Gabapentin (Neurontin) 300 mg BID PO Last administered on 07/27/17 08:59; Start 07/25/17 at 09:00 Gadobutrol (Gadavist) 4.5 mmol 1X ONCE IV Last administered on 07/26/17 11: 13; Start 07/26/17 at 11:00; Stop 07/26/17 at 11:01; Status DC Dexamethasone Sodium Phosphate (Decadron) 4 mg Q6HRS IV Last administered on 06:00; Start 07/26/17 at 18:00 Active Scripts Active Morphine Sulfate 15 Mg Tablet 1 Tab PO PRN Q6-8HRS PRN Naproxen 375 Mg Tablet 375 Mg PO BID PRN Reported Tizanidine Hcl 4 Mg Tablet 4 Mg PO PRN Q8HRS PRN Amitiza (Lubiprostone) 24 Mcg Capsule 24 Mcg PO BID Stool Softener (Docusate Sodium) 100 Mg Capsule 100 Mg PO DAILY Melatonin 5 Mg Tablet (Melatonin/Pyridoxine Hcl (B6)) 1 Each Tablet 1 Each PO HS Latuda (Lurasidone Hcl) 120 Mg Tablet 120 Mg PO DAILYWSUP Bupropion Xl (Bupropion Hcl) 300 Mg Tab.er.24h 300 Mg PO DAILY Alendronate Sodium 70 Mg Tablet 70 Mg PO WEEKLY Ibuprofen 600 Mg Tablet 600 Mg PO Q6H PRN Hydrocodone-Apap 5-325 (Hydrocodone Bit/Acetaminophen) 1 Each Tablet 1 Tab PO PRN Q6HRS PRN Vitamin D-3 (Cholecalciferol (Vitamin D3)) 2,000 Unit Tablet 5,000 Unit PO WEEKLY Losartan Potassium 100 Mg Tablet 50 Mg PO DAILY Amlodipine Besylate 10 Mg Tablet 10 Mg PO DAILY Atorvastatin Calcium 40 Mg Tablet 40 Mg PO DAILY Hydrochlorothiazide Capsule (Hydrochlorothiazide) 12.5 Mg Capsule 25 Mg PO DAILY Potassium Chloride 20 Meq Tab.er.prt 20 Meq PO DAILY Maxalt (Rizatriptan Benzoate) 10 Mg Tablet 10 Mg PO PRN PRN Clonazepam 1 Mg Tablet 1 Mg PO BID Vitals/I & O Vital Sign - Last 24 Hours 07/26/17 07/26/17 07/26/17 07/26/17 11:00 11:43 15:00 16:40 Temp 97.7 98.2 97.7 98.2 Pulse 81 97 Resp 16 18 16 18 B/P (MAP) 124/75 (91) 114/71 (85) Pulse Ox 92 93 90 90 O2 Delivery Room Air Nasal Cannula Room Air Nasal Cannula O2 Flow Rate 2.0 2.0 07/26/17 07/26/17 07/26/17 07/26/17 19:15 19:53 20:00 23:11 Temp 98.6 98.4 98.6 98.4 Pulse 85 80 Resp 16 20 18 B/P (MAP) 131/78 (95) 128/72 (90) Pulse Ox 92 90 93 O2 Delivery Nasal Cannula Nasal Cannula Room Air Nasal Cannula O2 Flow Rate 2.0 2.0 1.0 2.0 07/27/17 07/27/17 07/27/17 07/27/17 00:42 01:42 03:11 03:49 Temp 98.0 98.0 Pulse 90 88 Resp 20 20 18 B/P (MAP) 163/99 (120) 132/78 (96) Pulse Ox 93 96 96 O2 Delivery Nasal Cannula Room Air O2 Flow Rate 2.0 2.0 07/27/17 07/27/17 07/27/17 07/27/17 07:00 07:37 08:57 08:58 Temp 97.9 97.9 Pulse 77 77 Resp 18 B/P (MAP) 125/80 (95) 125/80 Pulse Ox 98 O2 Delivery Nasal Cannula Nasal Cannula Nasal Cannula O2 Flow Rate 2.0 2.0 2.0 07/27/17 09:25 O2 Delivery Room Air TONI PRICE MD Jul 27, 2017 10:14
--- NOTE | 2017-07-27 10:58 | PDOC ---
PROGRESS NOTES Assessment Problems Medical Problems: (1) Fall Status: Acute (2) Head injury Status: Acute (3) Scalp laceration Status: Acute C5-6 cord edema, myelitis? Gait instability. Generalized weakness. Essential tremor, no tremor on exam right now Fall. C-spine stenosis. Degenerative spine disease. Muscular atrophy, UE. HTN HLD Thyroid nodule. Schizophrenia. Bipolar disorder with panic attack. L2 old fracture s/p vertebroplasty. Dr. 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 Thyroid US pending. Treat medical diseases. OT/PT. Objective Vital Signs Date Time Temp Pulse Resp B/P (MAP) Pulse Ox O2 Delivery O2 Flow Rate FiO2 07/27/17 09:25 Room Air 07/27/17 08:58 77 125/80 07/27/17 08:57 2.0 07/27/17 07:00 97.9 18 98 97.9 PHYSICAL EXAM Alert. Oriented to time, place and person. PERRL. EOMI. CN: no focal findings. Muscle tone: normal. Muscle strength: 5/5, but intrinsic muscle atrophy in hands, worse on the right DTR: to plus Plantar reflex: flexor Gait: not examined in bed. Sensory exam: no abnormal findings. No cerebellar signs elicited. Review of Relevant I have reviewed the following items brandie (where applicable) has been applied. Labs Laboratory Tests Test 07/26/17 04:00 07/27/17 04:00 White Blood Count 4.6 x10^3/uL (4.0-11.0) 4.3 x10^3/uL (4.0-11.0) Red Blood Count 4.07 x10^6/uL (3.50-5.40) 4.37 x10^6/uL (3.50-5.40) Hemoglobin 11.7 g/dL (12.0-15.5) 12.5 g/dL (12.0-15.5) Hematocrit 35.4 % (36.0-47.0) 37.9 % (36.0-47.0) Mean Corpuscular Volume 87 fL (79-100) 87 fL (79-100) Mean Corpuscular Hemoglobin 29 pg (25-35) 29 pg (25-35) Mean Corpuscular Hemoglobin Concent 33 g/dL (31-37) 33 g/dL (31-37) Red Cell Distribution Width 15.4 % (11.5-14.5) 15.4 % (11.5-14.5) Platelet Count 141 x10^3/uL (140-400) 149 x10^3/uL (140-400) Neutrophils (%) (Auto) 49 % (31-73) 89 % (31-73) Lymphocytes (%) (Auto) 40 % (24-48) 10 % (24-48) Monocytes (%) (Auto) 8 % (0-9) 1 % (0-9) Eosinophils (%) (Auto) 2 % (0-3) 0 % (0-3) Basophils (%) (Auto) 1 % (0-3) 0 % (0-3) Neutrophils # (Auto) 2.2 x10^3uL (1.8-7.7) 3.8 x10^3uL (1.8-7.7) Lymphocytes # (Auto) 1.8 x10^3/uL (1.0-4.8) 0.4 x10^3/uL (1.0-4.8) Monocytes # (Auto) 0.4 x10^3/uL (0.0-1.1) 0.1 x10^3/uL (0.0-1.1) Eosinophils # (Auto) 0.1 x10^3/uL (0.0-0.7) 0.0 x10^3/uL (0.0-0.7) Basophils # (Auto) 0.0 x10^3/uL (0.0-0.2) 0.0 x10^3/uL (0.0-0.2) Sodium Level 142 mmol/L (136-145) 141 mmol/L (136-145) Potassium Level 3.8 mmol/L (3.5-5.1) 4.4 mmol/L (3.5-5.1) Chloride Level 104 mmol/L (98-107) 103 mmol/L (98-107) Carbon Dioxide Level 37 mmol/L (21-32) 34 mmol/L (21-32) Anion Gap 1 (6-14) 4 (6-14) Blood Urea Nitrogen 13 mg/dL (7-20) 15 mg/dL (7-20) Creatinine 0.6 mg/dL (0.6-1.0) 0.5 mg/dL (0.6-1.0) Estimated GFR (Cockcroft-Gault) 100.0 123.4 Glucose Level 88 mg/dL (70-99) 132 mg/dL (70-99) Calcium Level 8.9 mg/dL (8.5-10.1) 9.2 mg/dL (8.5-10.1) Laboratory Tests Test 07/27/17 04:00 White Blood Count 4.3 x10^3/uL (4.0-11.0) Red Blood Count 4.37 x10^6/uL (3.50-5.40) Hemoglobin 12.5 g/dL (12.0-15.5) Hematocrit 37.9 % (36.0-47.0) Mean Corpuscular Volume 87 fL (79-100) Mean Corpuscular Hemoglobin 29 pg (25-35) Mean Corpuscular Hemoglobin Concent 33 g/dL (31-37) Red Cell Distribution Width 15.4 % (11.5-14.5) Platelet Count 149 x10^3/uL (140-400) Neutrophils (%) (Auto) 89 % (31-73) Lymphocytes (%) (Auto) 10 % (24-48) Monocytes (%) (Auto) 1 % (0-9) Eosinophils (%) (Auto) 0 % (0-3) Basophils (%) (Auto) 0 % (0-3) Neutrophils # (Auto) 3.8 x10^3uL (1.8-7.7) Lymphocytes # (Auto) 0.4 x10^3/uL (1.0-4.8) Monocytes # (Auto) 0.1 x10^3/uL (0.0-1.1) Eosinophils # (Auto) 0.0 x10^3/uL (0.0-0.7) Basophils # (Auto) 0.0 x10^3/uL (0.0-0.2) Sodium Level 141 mmol/L (136-145) Potassium Level 4.4 mmol/L (3.5-5.1) Chloride Level 103 mmol/L (98-107) Carbon Dioxide Level 34 mmol/L (21-32) Anion Gap 4 (6-14) Blood Urea Nitrogen 15 mg/dL (7-20) Creatinine 0.5 mg/dL (0.6-1.0) Estimated GFR (Cockcroft-Gault) 123.4 Glucose Level 132 mg/dL (70-99) Calcium Level 9.2 mg/dL (8.5-10.1) Medications Current Medications Diphtheria/ Tetanus/Acell Pertussis (Boostrix) 0.5 ml ONCE ONCE VAX IM ; Start 07/24/17 at 17:00; Stop 07/24/17 at 17:56; Status DC Lidocaine/ Epinephrine (Xylocaine 1%-Epi 1:100,000) 20 ml 1X ONCE IJ Last administered on 07/24/17 17:01; Start 07/24/17 at 17:00; Stop 07/24/17 at 17 :01; Status DC Ondansetron HCl (Zofran Odt) 4 mg 1X ONCE PO Last administered on 07/24/17 17:15; Start 07/24/17 at 17:15; Stop 07/24/17 at 17:16; Status DC Acetaminophen (Tylenol) 650 mg 1X ONCE PO Last administered on 07/24/17 17: 14; Start 07/24/17 at 17:15; Stop 07/24/17 at 17:16; Status DC Ondansetron HCl (Zofran Odt) 4 mg STK-MED ONCE .ROUTE ; Start 07/24/17 at 17:12 ; Stop 07/24/17 at 17:13; Status DC Ondansetron HCl (Zofran) 4 mg PRN Q6HRS PRN IV NAUSEA/VOMITING Last administered on 07/26/17 17:28; Start 07/24/17 at 19:00 Prochlorperazine Edisylate (Compazine) 10 mg PRN Q6HRS PRN IV NAUSEA/VOMITING; Start 07/24/17 at 19:00 Prochlorperazine (Compazine) 25 mg PRN Q12HR PRN [place] NAUSEA/VOMITING; Start at 19:00 Al Hydroxide/Mg Hydroxide (Mylanta Plus Xs) 30 ml PRN Q3HRS PRN PO HEARTBURN / GAS; Start 07/24/17 at 19:00 Calcium Carbonate/ Glycine (Tums) 500 mg PRN Q3HRS PRN PO UPSET STOMACH Last administered on 07/27/17 07:14; Start 07/24/17 at 19:00 Oxycodone HCl (Roxicodone) 5 mg PRN Q3HRS PRN PO BREAKTHROUGH PAIN Last administered on 07/27/17 07:37; Start 07/24/17 at 19:00 Morphine Sulfate 1 mg PRN Q1HR PRN IV PAIN Last administered on 07/25/17 05: 02; Start 07/24/17 at 19:00 Ketorolac Tromethamine (Toradol) 15 mg PRN Q6HRS PRN IV PAIN Last administered on 07/24/17 23:50; Start 07/24/17 at 19:00; Stop 07/29/17 at 18:59 Acetaminophen (Tylenol) 650 mg PRN Q6HRS PRN PO Headaches, Temp > 101.5F; Start 07/24/17 at 19:00 Ibuprofen (Motrin) 400 mg PRN Q6HRS PRN PO MILD PAIN Last administered on 07/26 08:43; Start 07/24/17 at 19:00 Docusate Sodium (Colace) 100 mg BID PO Last administered on 07/27/17 08:58; Start 07/24/17 at 21:00 Magnesium Hydroxide (Milk Of Magnesia) 2,400 mg PRN Q12HR PRN PO CONSTIPATION; Start 07/24/17 at 19:00 Bisacodyl (Dulcolax Supp) 10 mg PRN DAILY PRN [place] CONSTIPATION; Start 07/24/17 at 19:00 Enoxaparin Sodium (Lovenox 40mg Syringe) 40 mg Q24H SQ Last administered on 08:44; Start 07/25/17 at 09:00 Lidocaine (Lidoderm) 1 patch DAILY TD Last administered on 07/27/17 09:05; Start 07/24/17 at 21:00 Atorvastatin Calcium (Lipitor) 40 mg QHS PO Last administered on 07/26/17 20: 53; Start 07/25/17 at 21:00 Clonazepam (KlonoPIN) 1 mg BID PO Last administered on 07/27/17 08:59; Start 07/25/17 at 09:00 Tizanidine HCl (Zanaflex) 4 mg PRN Q8HRS PRN PO MUSCLE SPASMS; Start 07/24/17 at 22:45 Bupropion HCl (Wellbutrin Xl) 300 mg DAILY PO Last administered on 07/27/17 08:58; Start 07/25/17 at 09:00 Lubiprostone (Amitiza) 24 mcg BIDWMEALS PO Last administered on 07/27/17 08: 59; Start 07/25/17 at 08:00 Lurasidone HCl (Latuda) 120 mg DAILYWSUP PO Last administered on 07/26/17 16: 39; Start 07/25/17 at 17:00 Non-Formulary Medication 1 each HS PO ; Start 07/25/17 at 21:00; Status UNV Losartan Potassium (Cozaar) 50 mg DAILY PO Last administered on 07/27/17 08: 58; Start 07/25/17 at 09:00 Influenza Virus Vaccine Quadrival (Fluarix Quad [id number] Syringe) 0.5 ml ONCE ONCE VAX IM Last administered on 07/26/17 11:59; Start 07/26/17 at 10:00; Stop 07/26/17 at 10:01; Status DC Gabapentin (Neurontin) 300 mg BID PO Last administered on 07/27/17 08:59; Start 07/25/17 at 09:00 Gadobutrol (Gadavist) 4.5 mmol 1X ONCE IV Last administered on 07/26/17 11: 13; Start 07/26/17 at 11:00; Stop 07/26/17 at 11:01; Status DC Dexamethasone Sodium Phosphate (Decadron) 4 mg Q6HRS IV Last administered on 06:00; Start 07/26/17 at 18:00 Active Scripts Active Morphine Sulfate 15 Mg Tablet 1 Tab PO PRN Q6-8HRS PRN Naproxen 375 Mg Tablet 375 Mg PO BID PRN Reported Tizanidine Hcl 4 Mg Tablet 4 Mg PO PRN Q8HRS PRN Amitiza (Lubiprostone) 24 Mcg Capsule 24 Mcg PO BID Stool Softener (Docusate Sodium) 100 Mg Capsule 100 Mg PO DAILY Melatonin 5 Mg Tablet (Melatonin/Pyridoxine Hcl (B6)) 1 Each Tablet 1 Each PO HS Latuda (Lurasidone Hcl) 120 Mg Tablet 120 Mg PO DAILYWSUP Bupropion Xl (Bupropion Hcl) 300 Mg Tab.er.24h 300 Mg PO DAILY Alendronate Sodium 70 Mg Tablet 70 Mg PO WEEKLY Ibuprofen 600 Mg Tablet 600 Mg PO Q6H PRN Hydrocodone-Apap 5-325 (Hydrocodone Bit/Acetaminophen) 1 Each Tablet 1 Tab PO PRN Q6HRS PRN Vitamin D-3 (Cholecalciferol (Vitamin D3)) 2,000 Unit Tablet 5,000 Unit PO WEEKLY Losartan Potassium 100 Mg Tablet 50 Mg PO DAILY Amlodipine Besylate 10 Mg Tablet 10 Mg PO DAILY Atorvastatin Calcium 40 Mg Tablet 40 Mg PO DAILY Hydrochlorothiazide Capsule (Hydrochlorothiazide) 12.5 Mg Capsule 25 Mg PO DAILY Potassium Chloride 20 Meq Tab.er.prt 20 Meq PO DAILY Maxalt (Rizatriptan Benzoate) 10 Mg Tablet 10 Mg PO PRN PRN Clonazepam 1 Mg Tablet 1 Mg PO BID Vitals/I & O Vital Sign - Last 24 Hours 07/26/17 07/26/17 07/26/17 07/26/17 11:00 11:43 15:00 16:40 Temp 97.7 98.2 97.7 98.2 Pulse 81 97 Resp 16 18 16 18 B/P (MAP) 124/75 (91) 114/71 (85) Pulse Ox 92 93 90 90 O2 Delivery Room Air Nasal Cannula Room Air Nasal Cannula O2 Flow Rate 2.0 2.0 07/26/17 07/26/17 07/26/17 07/26/17 19:15 19:53 20:00 23:11 Temp 98.6 98.4 98.6 98.4 Pulse 85 80 Resp 16 20 18 B/P (MAP) 131/78 (95) 128/72 (90) Pulse Ox 92 90 93 O2 Delivery Nasal Cannula Nasal Cannula Room Air Nasal Cannula O2 Flow Rate 2.0 2.0 1.0 2.0 07/27/17 07/27/17 07/27/17 07/27/17 00:42 01:42 03:11 03:49 Temp 98.0 98.0 Pulse 90 88 Resp 20 20 18 B/P (MAP) 163/99 (120) 132/78 (96) Pulse Ox 93 96 96 O2 Delivery Nasal Cannula Room Air O2 Flow Rate 2.0 2.0 07/27/17 07/27/17 07/27/17 07/27/17 07:00 07:25 07:37 08:57 Temp 97.9 97.9 Pulse 77 Resp 18 B/P (MAP) 125/80 (95) Pulse Ox 98 O2 Delivery Nasal Cannula Nasal Cannula Nasal Cannula Nasal Cannula O2 Flow Rate 2.0 2.0 2.0 2.0 07/27/17 07/27/17 08:58 09:25 Pulse 77 B/P (MAP) 125/80 O2 Delivery Room Air Images C-spine MRI w/wo contrast on 07/26/17: C5 C6 cord edema. Myelitis? CORBY PETERSON MD Jul 27, 2017 10:58
[2017-07-27] MEDS ORDERED: LIDOCAINE 1% / SOD BICARB 8.4% 20 ML VIAL. IJ ONE (11:45)
[2017-07-27 12:17] LABS: ANISOCYTOSIS SLIGHT; PLT ESTIMATE ADEQUATE (ADEQUATE)
--- NOTE | 2017-07-27 13:35 | RAD ---
Indication: Cervical myelitis. Procedure: Procedure was performed on July 27, 2017. The procedure, its risks and benefits, and potential complications were explained. All questions were answered. Written informed consent was obtained. A timeout procedure was performed. The patient was prepped and draped in normal sterile fashion. The patient was anesthetized with 4 cc of 1% lidocaine. A 20-gauge spinal needle was advanced with the stylet in place using an oblique approach at the level of L3. 12 mL of clear CSF was removed. The needle was removed with stylet in place. The patient tolerated the procedure well and there were no immediate complications. Total fluoroscopy time is 0.3 minutes. Image count is 1. Impression: 12 ml of CSF obtained via lumbar puncture under fluoroscopy.
[2017-07-27 13:41] LABS: CSF CLARITY CLEAR; CSF COLOR COLORLESS
[2017-07-27 13:46] LABS: CSF PROTEIN 60.6 mg/dL (15.0-45.0)
[2017-07-27] MEDS: ACETAMINOPHEN 325 MG TABLET. PO PRN ×2 (14:14→22:17)
[2017-07-27] MEDS: MORPHINE SULFATE 2 MG/ML DISP.SYRIN. IV PRN (15:11)
[2017-07-27] MEDS: LURASIDONE 40 MG TABLET. PO SCH (18:23)
[2017-07-27] MEDS: ONDANSETRON PF 4 MG/2 ML VIAL. IV PRN (20:04)
[2017-07-27] MEDS: ATORVASTATIN CALCIUM 40 MG TABLET. PO SCH (21:58)
[2017-07-28] MEDS: DEXAMETHASONE SOD PHOS 4 MG/ML VIAL IV SCH ×2 (00:35→06:19)
[2017-07-28 03:00] VITALS: BP 146/85
[2017-07-28 05:18] LABS: BASO % 0 % (0-3); EOS % 0 % (0-3); HEMATOCRIT 37.9 % (36.0-47.0); HEMOGLOBIN 12.6 g/dL (12.0-15.5); LYMPH # 0.5 x10^3/uL (1.0-4.8); LYMPH % 10 % (24-48); MEAN CORPUSCULAR HEMOGLOBIN 29 pg (25-35); MEAN CORPUSCULAR HGB CONC 33 g/dL (31-37); MEAN CORPUSCULAR VOLUME 86 fL (79-100); MONO % 2 % (0-9); NEUT % 87 % (31-73); PLATELET COUNT 168 x10^3/uL (140-400); RED BLOOD COUNT 4.39 x10^6/uL (3.50-5.40); RED CELL DISTRIBUTION WIDTH 15.2 % (11.5-14.5); WHITE BLOOD COUNT 5.1 x10^3/uL (4.0-11.0)
[2017-07-28 05:44] LABS: CALCIUM 9.1 mg/dL (8.5-10.1); CREATININE 0.6 mg/dL (0.6-1.0); POTASSIUM 4.3 mmol/L (3.5-5.1)
[2017-07-28] MEDS: oxyCODONE IR 5 MG TABLET PO PRN (06:18)
[2017-07-28 07:00] VITALS: BP 152/87
[2017-07-28] MEDS: LUBIPROSTONE 8 MCG CAPSULE PO SCH ×2 (08:19→18:22)
[2017-07-28] MEDS: tiZANidine 4 MG TABLET. PO PRN ×2 (08:19→20:10)
[2017-07-28] MEDS: LIDOCAINE (700MG/PATCH) PATCH. TD SCH (08:19)
[2017-07-28] MEDS: DOCUSATE SODIUM 100 MG CAPSULE. PO SCH ×2 (08:19→21:24)
[2017-07-28] MEDS: GABAPENTIN 300 MG CAPSULE. PO SCH ×2 (08:20→21:24)
[2017-07-28] MEDS: buPROPion XL 150 MG TAB.ER.24H. PO SCH (08:20)
[2017-07-28] MEDS: clonazePAM 1 MG TABLET PO SCH ×2 (08:20→21:24)
[2017-07-28] MEDS: LOSARTAN POTASSIUM 50 MG TABLET. PO SCH (08:20)
[2017-07-28] MEDS: ENOXAPARIN 40 MG/0.4 ML SYRINGE. SQ SCH (08:20)
[2017-07-28] MEDS: ONDANSETRON PF 4 MG/2 ML VIAL. IV PRN ×2 (08:35→18:26)
--- NOTE | 2017-07-28 10:01 | PDOC ---
PROGRESS NOTES Assessment Problems Medical Problems: (1) Fall Status: Acute (2) Head injury Status: Acute (3) Scalp laceration Status: Acute C5-6 cord edema, myelitis? CSF findings make immune-mediated myelitis much less likely as the only abnormal finding is elevated protein level which is nonspecific. Therefore I believe the cervical cord edema is on a degenerative basis. Gait instability. Generalized weakness. Essential tremor, no tremor on exam right now Fall. C-spine stenosis. Degenerative spine disease. Muscular atrophy, UE. HTN HLD Thyroid nodule. Schizophrenia. Bipolar disorder with panic attack. L2 old fracture s/p vertebroplasty. Dr. 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 Oriented to time, place and person. PERRL. EOMI. CN: no focal findings. Muscle tone: normal. Muscle strength: 5/5, but intrinsic muscle atrophy in hands, worse on the right DTR: 2+ Plantar reflex: flexor Gait: not examined in bed. Sensory exam: no abnormal findings. No cerebellar signs elicited. Review of Relevant I have reviewed the following items brandie (where applicable) has been applied. Labs Laboratory Tests Test 07/27/17 04:00 07/27/17 13:00 07/28/17 04:00 White Blood Count 4.3 x10^3/uL (4.0-11.0) 5.1 x10^3/uL (4.0-11.0) Red Blood Count 4.37 x10^6/uL (3.50-5.40) 4.39 x10^6/uL (3.50-5.40) Hemoglobin 12.5 g/dL (12.0-15.5) 12.6 g/dL (12.0-15.5) Hematocrit 37.9 % (36.0-47.0) 37.9 % (36.0-47.0) Mean Corpuscular Volume 87 fL (79-100) 86 fL (79-100) Mean Corpuscular Hemoglobin 29 pg (25-35) 29 pg (25-35) Mean Corpuscular Hemoglobin Concent 33 g/dL (31-37) 33 g/dL (31-37) Red Cell Distribution Width 15.4 % (11.5-14.5) 15.2 % (11.5-14.5) Platelet Count 149 x10^3/uL (140-400) 168 x10^3/uL (140-400) Neutrophils (%) (Auto) 89 % (31-73) 87 % (31-73) Lymphocytes (%) (Auto) 10 % (24-48) 10 % (24-48) Monocytes (%) (Auto) 1 % (0-9) 2 % (0-9) Eosinophils (%) (Auto) 0 % (0-3) 0 % (0-3) Basophils (%) (Auto) 0 % (0-3) 0 % (0-3) Neutrophils # (Auto) 3.8 x10^3uL (1.8-7.7) 4.5 x10^3uL (1.8-7.7) Lymphocytes # (Auto) 0.4 x10^3/uL (1.0-4.8) 0.5 x10^3/uL (1.0-4.8) Monocytes # (Auto) 0.1 x10^3/uL (0.0-1.1) 0.1 x10^3/uL (0.0-1.1) Eosinophils # (Auto) 0.0 x10^3/uL (0.0-0.7) 0.0 x10^3/uL (0.0-0.7) Basophils # (Auto) 0.0 x10^3/uL (0.0-0.2) 0.0 x10^3/uL (0.0-0.2) Segmented Neutrophils % 87 % (35-66) Band Neutrophils % 6 % (0-9) Lymphocytes % 5 % (24-48) Atypical Lymphocytes % (Manual) 1 % (0-0) Monocytes % 1 % (0-10) Platelet Estimate Adequate (ADEQUATE) Anisocytosis Slight Sodium Level 141 mmol/L (136-145) 141 mmol/L (136-145) Potassium Level 4.4 mmol/L (3.5-5.1) 4.3 mmol/L (3.5-5.1) Chloride Level 103 mmol/L (98-107) 104 mmol/L (98-107) Carbon Dioxide Level 34 mmol/L (21-32) 35 mmol/L (21-32) Anion Gap 4 (6-14) 2 (6-14) Blood Urea Nitrogen 15 mg/dL (7-20) 15 mg/dL (7-20) Creatinine 0.5 mg/dL (0.6-1.0) 0.6 mg/dL (0.6-1.0) Estimated GFR (Cockcroft-Gault) 123.4 100.0 Glucose Level 132 mg/dL (70-99) 131 mg/dL (70-99) Calcium Level 9.2 mg/dL (8.5-10.1) 9.1 mg/dL (8.5-10.1) CSF Tube Number 4 CSF Volume 3.8 CSF Color Colorless CSF Clarity Clear CSF WBC 1 CSF RBC 0 CSF Mononuclear WBCs % 100 % CSF Glucose 88 mg/dL (37-70) CSF Total Protein 60.6 mg/dL (15.0-45.0) Laboratory Tests Test 07/27/17 13:00 07/28/17 04:00 CSF Tube Number 4 CSF Volume 3.8 CSF Color Colorless CSF Clarity Clear CSF WBC 1 CSF RBC 0 CSF Mononuclear WBCs % 100 % CSF Glucose 88 mg/dL (37-70) CSF Total Protein 60.6 mg/dL (15.0-45.0) White Blood Count 5.1 x10^3/uL (4.0-11.0) Red Blood Count 4.39 x10^6/uL (3.50-5.40) Hemoglobin 12.6 g/dL (12.0-15.5) Hematocrit 37.9 % (36.0-47.0) Mean Corpuscular Volume 86 fL (79-100) Mean Corpuscular Hemoglobin 29 pg (25-35) Mean Corpuscular Hemoglobin Concent 33 g/dL (31-37) Red Cell Distribution Width 15.2 % (11.5-14.5) Platelet Count 168 x10^3/uL (140-400) Neutrophils (%) (Auto) 87 % (31-73) Lymphocytes (%) (Auto) 10 % (24-48) Monocytes (%) (Auto) 2 % (0-9) Eosinophils (%) (Auto) 0 % (0-3) Basophils (%) (Auto) 0 % (0-3) Neutrophils # (Auto) 4.5 x10^3uL (1.8-7.7) Lymphocytes # (Auto) 0.5 x10^3/uL (1.0-4.8) Monocytes # (Auto) 0.1 x10^3/uL (0.0-1.1) Eosinophils # (Auto) 0.0 x10^3/uL (0.0-0.7) Basophils # (Auto) 0.0 x10^3/uL (0.0-0.2) Sodium Level 141 mmol/L (136-145) Potassium Level 4.3 mmol/L (3.5-5.1) Chloride Level 104 mmol/L (98-107) Carbon Dioxide Level 35 mmol/L (21-32) Anion Gap 2 (6-14) Blood Urea Nitrogen 15 mg/dL (7-20) Creatinine 0.6 mg/dL (0.6-1.0) Estimated GFR (Cockcroft-Gault) 100.0 Glucose Level 131 mg/dL (70-99) Calcium Level 9.1 mg/dL (8.5-10.1) Microbiology 07/27/17 Gram Stain - Final, Complete Medications Current Medications Diphtheria/ Tetanus/Acell Pertussis (Boostrix) 0.5 ml ONCE ONCE VAX IM ; Start 07/24/17 at 17:00; Stop 07/24/17 at 17:56; Status DC Lidocaine/ Epinephrine (Xylocaine 1%-Epi 1:100,000) 20 ml 1X ONCE IJ Last administered on 07/24/17 17:01; Start 07/24/17 at 17:00; Stop 07/24/17 at 17 :01; Status DC Ondansetron HCl (Zofran Odt) 4 mg 1X ONCE PO Last administered on 07/24/17 17:15; Start 07/24/17 at 17:15; Stop 07/24/17 at 17:16; Status DC Acetaminophen (Tylenol) 650 mg 1X ONCE PO Last administered on 07/24/17 17: 14; Start 07/24/17 at 17:15; Stop 07/24/17 at 17:16; Status DC Ondansetron HCl (Zofran Odt) 4 mg STK-MED ONCE .ROUTE ; Start 07/24/17 at 17:12 ; Stop 07/24/17 at 17:13; Status DC Ondansetron HCl (Zofran) 4 mg PRN Q6HRS PRN IV NAUSEA/VOMITING, 1st choice Last administered on 07/28/17 08:35; Start 07/24/17 at 19:00 Prochlorperazine Edisylate (Compazine) 10 mg PRN Q6HRS PRN IV NAUSEA/VOMITING, 2nd choice; Start 07/24/17 at 19:00 Prochlorperazine (Compazine) 25 mg PRN Q12HR PRN [place] NAUSEA/VOMITING; Start at 19:00 Al Hydroxide/Mg Hydroxide (Mylanta Plus Xs) 30 ml PRN Q3HRS PRN PO HEARTBURN / GAS; Start 07/24/17 at 19:00 Calcium Carbonate/ Glycine (Tums) 500 mg PRN Q3HRS PRN PO UPSET STOMACH Last administered on 07/27/17 07:14; Start 07/24/17 at 19:00 Oxycodone HCl (Roxicodone) 5 mg PRN Q3HRS PRN PO BREAKTHROUGH PAIN Last administered on 07/28/17 06:18; Start 07/24/17 at 19:00 Morphine Sulfate 1 mg PRN Q1HR PRN IV PAIN Last administered on 07/27/17 15: 11; Start 07/24/17 at 19:00 Ketorolac Tromethamine (Toradol) 15 mg PRN Q6HRS PRN IV PAIN Last administered on 07/24/17 23:50; Start 07/24/17 at 19:00; Stop 07/29/17 at 18:59 Acetaminophen (Tylenol) 650 mg PRN Q6HRS PRN PO Headaches, Temp > 101.5F Last administered on 07/27/17 22:17; Start 07/24/17 at 19:00 Ibuprofen (Motrin) 400 mg PRN Q6HRS PRN PO MILD PAIN Last administered on 07/26 08:43; Start 07/24/17 at 19:00 Docusate Sodium (Colace) 100 mg BID PO Last administered on 07/28/17 08:19; Start 07/24/17 at 21:00 Magnesium Hydroxide (Milk Of Magnesia) 2,400 mg PRN Q12HR PRN PO CONSTIPATION; Start 07/24/17 at 19:00 Bisacodyl (Dulcolax Supp) 10 mg PRN DAILY PRN [place] CONSTIPATION; Start 07/24/17 at 19:00 Enoxaparin Sodium (Lovenox 40mg Syringe) 40 mg Q24H SQ Last administered on 08:20; Start 07/25/17 at 09:00 Lidocaine (Lidoderm) 1 patch DAILY TD Last administered on 07/28/17 08:19; Start 07/24/17 at 21:00 Atorvastatin Calcium (Lipitor) 40 mg QHS PO Last administered on 07/27/17 21: 58; Start 07/25/17 at 21:00 Clonazepam (KlonoPIN) 1 mg BID PO Last administered on 07/28/17 08:20; Start 07/25/17 at 09:00 Tizanidine HCl (Zanaflex) 4 mg PRN Q8HRS PRN PO MUSCLE SPASMS Last administered on 07/28/17 08:19; Start 07/24/17 at 22:45 Bupropion HCl (Wellbutrin Xl) 300 mg DAILY PO Last administered on 07/28/17 08:20; Start 07/25/17 at 09:00 Lubiprostone (Amitiza) 24 mcg BIDWMEALS PO Last administered on 07/28/17 08: 19; Start 07/25/17 at 08:00 Lurasidone HCl (Latuda) 120 mg DAILYWSUP PO Last administered on 07/27/17 18: 23; Start 07/25/17 at 17:00 Non-Formulary Medication 1 each HS PO ; Start 07/25/17 at 21:00; Status UNV Losartan Potassium (Cozaar) 50 mg DAILY PO Last administered on 07/28/17 08: 20; Start 07/25/17 at 09:00 Influenza Virus Vaccine Quadrival (Fluarix Quad [id number] Syringe) 0.5 ml ONCE ONCE VAX IM Last administered on 07/26/17 11:59; Start 07/26/17 at 10:00; Stop 07/26/17 at 10:01; Status DC Gabapentin (Neurontin) 300 mg BID PO Last administered on 07/28/17 08:20; Start 07/25/17 at 09:00 Gadobutrol (Gadavist) 4.5 mmol 1X ONCE IV Last administered on 07/26/17 11: 13; Start 07/26/17 at 11:00; Stop 07/26/17 at 11:01; Status DC Dexamethasone Sodium Phosphate (Decadron) 4 mg Q6HRS IV Last administered on 06:19; Start 07/26/17 at 18:00; Stop 07/28/17 at 08:59; Status DC Lidocaine/Sodium Bicarbonate (Buffered Lidocaine 1%) 20 ml 1X ONCE IJ Last administered on 07/27/17 13:02; Start 07/27/17 at 11:45; Stop 07/27/17 at 11 :46; Status DC Dexamethasone (Decadron) 2 mg BID PO ; Start 07/28/17 at 09:00; Stop 07/29/17 at 09:01 Active Scripts Active Morphine Sulfate 15 Mg Tablet 1 Tab PO PRN Q6-8HRS PRN Naproxen 375 Mg Tablet 375 Mg PO BID PRN Reported Tizanidine Hcl 4 Mg Tablet 4 Mg PO PRN Q8HRS PRN Amitiza (Lubiprostone) 24 Mcg Capsule 24 Mcg PO BID Stool Softener (Docusate Sodium) 100 Mg Capsule 100 Mg PO DAILY Melatonin 5 Mg Tablet (Melatonin/Pyridoxine Hcl (B6)) 1 Each Tablet 1 Each PO HS Latuda (Lurasidone Hcl) 120 Mg Tablet 120 Mg PO DAILYWSUP Bupropion Xl (Bupropion Hcl) 300 Mg Tab.er.24h 300 Mg PO DAILY Alendronate Sodium 70 Mg Tablet 70 Mg PO WEEKLY Ibuprofen 600 Mg Tablet 600 Mg PO Q6H PRN Hydrocodone-Apap 5-325 (Hydrocodone Bit/Acetaminophen) 1 Each Tablet 1 Tab PO PRN Q6HRS PRN Vitamin D-3 (Cholecalciferol (Vitamin D3)) 2,000 Unit Tablet 5,000 Unit PO WEEKLY Losartan Potassium 100 Mg Tablet 50 Mg PO DAILY Amlodipine Besylate 10 Mg Tablet 10 Mg PO DAILY Atorvastatin Calcium 40 Mg Tablet 40 Mg PO DAILY Hydrochlorothiazide Capsule (Hydrochlorothiazide) 12.5 Mg Capsule 25 Mg PO DAILY Potassium Chloride 20 Meq Tab.er.prt 20 Meq PO DAILY Maxalt (Rizatriptan Benzoate) 10 Mg Tablet 10 Mg PO PRN PRN Clonazepam 1 Mg Tablet 1 Mg PO BID Vitals/I & O Vital Sign - Last 24 Hours 07/27/17 07/27/17 07/27/17 07/27/17 11:00 11:53 15:00 15:11 Temp 97.9 97.7 97.9 97.7 Pulse 59 101 Resp 16 18 B/P (MAP) 131/71 (91) 155/81 (105) Pulse Ox 97 94 O2 Delivery Nasal Cannula Nasal Cannula Room Air Room Air O2 Flow Rate 2.0 2.0 07/27/17 07/27/17 07/27/17 07/27/17 16:05 19:00 19:55 20:00 Temp 98.6 98.6 Pulse 98 Resp 18 18 B/P (MAP) 155/86 (109) O2 Delivery Nasal Cannula Room Air Room Air Room Air O2 Flow Rate 2.0 92.0 07/27/17 07/27/17 07/28/17 07/28/17 21:00 23:00 03:00 06:18 Temp 98.1 98.0 98.1 98.0 Pulse 94 91 Resp 20 16 22 20 B/P (MAP) 157/93 (114) 146/85 (105) Pulse Ox 95 93 O2 Delivery Room Air Room Air Room Air 07/28/17 07/28/17 07/28/17 07:00 07:20 08:20 Temp 98.1 98.1 Pulse 85 85 Resp 18 B/P (MAP) 152/87 (108) 152/87 Pulse Ox 92 O2 Delivery Room Air Room Air Intake and Output 07/28/17 07/28/17 07/29/17 15:00 23:00 07:00 Intake Total 120 ml Balance 120 ml CORBY PETERSON MD Jul 28, 2017 10:01
--- NOTE | 2017-07-28 10:15 | PDOC ---
PROGRESS NOTES Subjective Subjective She does not feel good. Objective Objective Vital Signs Date Time Temp Pulse Resp B/P (MAP) Pulse Ox O2 Delivery O2 Flow Rate FiO2 07/28/17 08:20 85 152/87 07/28/17 07:20 Room Air 07/28/17 07:00 98.1 18 92 98.1 07/27/17 19:00 92.0 Intake and Output 07/29/17 07:00 Intake Total 120 ml Balance 120 ml Intake Oral 120 ml Physical Exam Physical Exam She is supine in bed with ice packs to her forehead and she continues with hand intrinsic and dorsiflexor muscle weakness and atrophy and mobility and self care limitations. Assessment Assessment Problems Medical Problems: (1) Fall Status: Acute (2) Head injury Status: Acute (3) Scalp laceration Status: Acute Plan Plan of Care To SNF when medically stable. Comment Review of Relevant I have reviewed the following items brandie (where applicable) has been applied. Labs Laboratory Tests Test 07/27/17 04:00 07/27/17 13:00 07/28/17 04:00 White Blood Count 4.3 x10^3/uL (4.0-11.0) 5.1 x10^3/uL (4.0-11.0) Red Blood Count 4.37 x10^6/uL (3.50-5.40) 4.39 x10^6/uL (3.50-5.40) Hemoglobin 12.5 g/dL (12.0-15.5) 12.6 g/dL (12.0-15.5) Hematocrit 37.9 % (36.0-47.0) 37.9 % (36.0-47.0) Mean Corpuscular Volume 87 fL (79-100) 86 fL (79-100) Mean Corpuscular Hemoglobin 29 pg (25-35) 29 pg (25-35) Mean Corpuscular Hemoglobin Concent 33 g/dL (31-37) 33 g/dL (31-37) Red Cell Distribution Width 15.4 % (11.5-14.5) 15.2 % (11.5-14.5) Platelet Count 149 x10^3/uL (140-400) 168 x10^3/uL (140-400) Neutrophils (%) (Auto) 89 % (31-73) 87 % (31-73) Lymphocytes (%) (Auto) 10 % (24-48) 10 % (24-48) Monocytes (%) (Auto) 1 % (0-9) 2 % (0-9) Eosinophils (%) (Auto) 0 % (0-3) 0 % (0-3) Basophils (%) (Auto) 0 % (0-3) 0 % (0-3) Neutrophils # (Auto) 3.8 x10^3uL (1.8-7.7) 4.5 x10^3uL (1.8-7.7) Lymphocytes # (Auto) 0.4 x10^3/uL (1.0-4.8) 0.5 x10^3/uL (1.0-4.8) Monocytes # (Auto) 0.1 x10^3/uL (0.0-1.1) 0.1 x10^3/uL (0.0-1.1) Eosinophils # (Auto) 0.0 x10^3/uL (0.0-0.7) 0.0 x10^3/uL (0.0-0.7) Basophils # (Auto) 0.0 x10^3/uL (0.0-0.2) 0.0 x10^3/uL (0.0-0.2) Segmented Neutrophils % 87 % (35-66) Band Neutrophils % 6 % (0-9) Lymphocytes % 5 % (24-48) Atypical Lymphocytes % (Manual) 1 % (0-0) Monocytes % 1 % (0-10) Platelet Estimate Adequate (ADEQUATE) Anisocytosis Slight Sodium Level 141 mmol/L (136-145) 141 mmol/L (136-145) Potassium Level 4.4 mmol/L (3.5-5.1) 4.3 mmol/L (3.5-5.1) Chloride Level 103 mmol/L (98-107) 104 mmol/L (98-107) Carbon Dioxide Level 34 mmol/L (21-32) 35 mmol/L (21-32) Anion Gap 4 (6-14) 2 (6-14) Blood Urea Nitrogen 15 mg/dL (7-20) 15 mg/dL (7-20) Creatinine 0.5 mg/dL (0.6-1.0) 0.6 mg/dL (0.6-1.0) Estimated GFR (Cockcroft-Gault) 123.4 100.0 Glucose Level 132 mg/dL (70-99) 131 mg/dL (70-99) Calcium Level 9.2 mg/dL (8.5-10.1) 9.1 mg/dL (8.5-10.1) CSF Tube Number 4 CSF Volume 3.8 CSF Color Colorless CSF Clarity Clear CSF WBC 1 CSF RBC 0 CSF Mononuclear WBCs % 100 % CSF Glucose 88 mg/dL (37-70) CSF Total Protein 60.6 mg/dL (15.0-45.0) Laboratory Tests Test 07/27/17 13:00 07/28/17 04:00 CSF Tube Number 4 CSF Volume 3.8 CSF Color Colorless CSF Clarity Clear CSF WBC 1 CSF RBC 0 CSF Mononuclear WBCs % 100 % CSF Glucose 88 mg/dL (37-70) CSF Total Protein 60.6 mg/dL (15.0-45.0) White Blood Count 5.1 x10^3/uL (4.0-11.0) Red Blood Count 4.39 x10^6/uL (3.50-5.40) Hemoglobin 12.6 g/dL (12.0-15.5) Hematocrit 37.9 % (36.0-47.0) Mean Corpuscular Volume 86 fL (79-100) Mean Corpuscular Hemoglobin 29 pg (25-35) Mean Corpuscular Hemoglobin Concent 33 g/dL (31-37) Red Cell Distribution Width 15.2 % (11.5-14.5) Platelet Count 168 x10^3/uL (140-400) Neutrophils (%) (Auto) 87 % (31-73) Lymphocytes (%) (Auto) 10 % (24-48) Monocytes (%) (Auto) 2 % (0-9) Eosinophils (%) (Auto) 0 % (0-3) Basophils (%) (Auto) 0 % (0-3) Neutrophils # (Auto) 4.5 x10^3uL (1.8-7.7) Lymphocytes # (Auto) 0.5 x10^3/uL (1.0-4.8) Monocytes # (Auto) 0.1 x10^3/uL (0.0-1.1) Eosinophils # (Auto) 0.0 x10^3/uL (0.0-0.7) Basophils # (Auto) 0.0 x10^3/uL (0.0-0.2) Sodium Level 141 mmol/L (136-145) Potassium Level 4.3 mmol/L (3.5-5.1) Chloride Level 104 mmol/L (98-107) Carbon Dioxide Level 35 mmol/L (21-32) Anion Gap 2 (6-14) Blood Urea Nitrogen 15 mg/dL (7-20) Creatinine 0.6 mg/dL (0.6-1.0) Estimated GFR (Cockcroft-Gault) 100.0 Glucose Level 131 mg/dL (70-99) Calcium Level 9.1 mg/dL (8.5-10.1) Microbiology 07/27/17 Gram Stain - Final, Complete Medications Current Medications Diphtheria/ Tetanus/Acell Pertussis (Boostrix) 0.5 ml ONCE ONCE VAX IM ; Start 07/24/17 at 17:00; Stop 07/24/17 at 17:56; Status DC Lidocaine/ Epinephrine (Xylocaine 1%-Epi 1:100,000) 20 ml 1X ONCE IJ Last administered on 07/24/17 17:01; Start 07/24/17 at 17:00; Stop 07/24/17 at 17 :01; Status DC Ondansetron HCl (Zofran Odt) 4 mg 1X ONCE PO Last administered on 07/24/17 17:15; Start 07/24/17 at 17:15; Stop 07/24/17 at 17:16; Status DC Acetaminophen (Tylenol) 650 mg 1X ONCE PO Last administered on 07/24/17 17: 14; Start 07/24/17 at 17:15; Stop 07/24/17 at 17:16; Status DC Ondansetron HCl (Zofran Odt) 4 mg STK-MED ONCE .ROUTE ; Start 07/24/17 at 17:12 ; Stop 07/24/17 at 17:13; Status DC Ondansetron HCl (Zofran) 4 mg PRN Q6HRS PRN IV NAUSEA/VOMITING, 1st choice Last administered on 07/28/17 08:35; Start 07/24/17 at 19:00 Prochlorperazine Edisylate (Compazine) 10 mg PRN Q6HRS PRN IV NAUSEA/VOMITING, 2nd choice; Start 07/24/17 at 19:00 Prochlorperazine (Compazine) 25 mg PRN Q12HR PRN [place] NAUSEA/VOMITING; Start at 19:00 Al Hydroxide/Mg Hydroxide (Mylanta Plus Xs) 30 ml PRN Q3HRS PRN PO HEARTBURN / GAS; Start 07/24/17 at 19:00 Calcium Carbonate/ Glycine (Tums) 500 mg PRN Q3HRS PRN PO UPSET STOMACH Last administered on 07/27/17 07:14; Start 07/24/17 at 19:00 Oxycodone HCl (Roxicodone) 5 mg PRN Q3HRS PRN PO BREAKTHROUGH PAIN Last administered on 07/28/17 06:18; Start 07/24/17 at 19:00 Morphine Sulfate 1 mg PRN Q1HR PRN IV PAIN Last administered on 07/27/17 15: 11; Start 07/24/17 at 19:00 Ketorolac Tromethamine (Toradol) 15 mg PRN Q6HRS PRN IV PAIN Last administered on 07/24/17 23:50; Start 07/24/17 at 19:00; Stop 07/29/17 at 18:59 Acetaminophen (Tylenol) 650 mg PRN Q6HRS PRN PO Headaches, Temp > 101.5F Last administered on 07/27/17 22:17; Start 07/24/17 at 19:00 Ibuprofen (Motrin) 400 mg PRN Q6HRS PRN PO MILD PAIN Last administered on 07/26 08:43; Start 07/24/17 at 19:00 Docusate Sodium (Colace) 100 mg BID PO Last administered on 07/28/17 08:19; Start 07/24/17 at 21:00 Magnesium Hydroxide (Milk Of Magnesia) 2,400 mg PRN Q12HR PRN PO CONSTIPATION; Start 07/24/17 at 19:00 Bisacodyl (Dulcolax Supp) 10 mg PRN DAILY PRN [place] CONSTIPATION; Start 07/24/17 at 19:00 Enoxaparin Sodium (Lovenox 40mg Syringe) 40 mg Q24H SQ Last administered on 08:20; Start 07/25/17 at 09:00 Lidocaine (Lidoderm) 1 patch DAILY TD Last administered on 07/28/17 08:19; Start 07/24/17 at 21:00 Atorvastatin Calcium (Lipitor) 40 mg QHS PO Last administered on 07/27/17 21: 58; Start 07/25/17 at 21:00 Clonazepam (KlonoPIN) 1 mg BID PO Last administered on 07/28/17 08:20; Start 07/25/17 at 09:00 Tizanidine HCl (Zanaflex) 4 mg PRN Q8HRS PRN PO MUSCLE SPASMS Last administered on 07/28/17 08:19; Start 07/24/17 at 22:45 Bupropion HCl (Wellbutrin Xl) 300 mg DAILY PO Last administered on 07/28/17 08:20; Start 07/25/17 at 09:00 Lubiprostone (Amitiza) 24 mcg BIDWMEALS PO Last administered on 07/28/17 08: 19; Start 07/25/17 at 08:00 Lurasidone HCl (Latuda) 120 mg DAILYWSUP PO Last administered on 07/27/17 18: 23; Start 07/25/17 at 17:00 Non-Formulary Medication 1 each HS PO ; Start 07/25/17 at 21:00; Status UNV Losartan Potassium (Cozaar) 50 mg DAILY PO Last administered on 07/28/17 08: 20; Start 07/25/17 at 09:00 Influenza Virus Vaccine Quadrival (Fluarix Quad [id number] Syringe) 0.5 ml ONCE ONCE VAX IM Last administered on 07/26/17 11:59; Start 07/26/17 at 10:00; Stop 07/26/17 at 10:01; Status DC Gabapentin (Neurontin) 300 mg BID PO Last administered on 07/28/17 08:20; Start 07/25/17 at 09:00 Gadobutrol (Gadavist) 4.5 mmol 1X ONCE IV Last administered on 07/26/17 11: 13; Start 07/26/17 at 11:00; Stop 07/26/17 at 11:01; Status DC Dexamethasone Sodium Phosphate (Decadron) 4 mg Q6HRS IV Last administered on 06:19; Start 07/26/17 at 18:00; Stop 07/28/17 at 08:59; Status DC Lidocaine/Sodium Bicarbonate (Buffered Lidocaine 1%) 20 ml 1X ONCE IJ Last administered on 07/27/17 13:02; Start 07/27/17 at 11:45; Stop 07/27/17 at 11 :46; Status DC Dexamethasone (Decadron) 2 mg BID PO ; Start 07/28/17 at 09:00; Stop 07/29/17 at 09:01 Active Scripts Active Morphine Sulfate 15 Mg Tablet 1 Tab PO PRN Q6-8HRS PRN Naproxen 375 Mg Tablet 375 Mg PO BID PRN Reported Tizanidine Hcl 4 Mg Tablet 4 Mg PO PRN Q8HRS PRN Amitiza (Lubiprostone) 24 Mcg Capsule 24 Mcg PO BID Stool Softener (Docusate Sodium) 100 Mg Capsule 100 Mg PO DAILY Melatonin 5 Mg Tablet (Melatonin/Pyridoxine Hcl (B6)) 1 Each Tablet 1 Each PO HS Latuda (Lurasidone Hcl) 120 Mg Tablet 120 Mg PO DAILYWSUP Bupropion Xl (Bupropion Hcl) 300 Mg Tab.er.24h 300 Mg PO DAILY Alendronate Sodium 70 Mg Tablet 70 Mg PO WEEKLY Ibuprofen 600 Mg Tablet 600 Mg PO Q6H PRN Hydrocodone-Apap 5-325 (Hydrocodone Bit/Acetaminophen) 1 Each Tablet 1 Tab PO PRN Q6HRS PRN Vitamin D-3 (Cholecalciferol (Vitamin D3)) 2,000 Unit Tablet 5,000 Unit PO WEEKLY Losartan Potassium 100 Mg Tablet 50 Mg PO DAILY Amlodipine Besylate 10 Mg Tablet 10 Mg PO DAILY Atorvastatin Calcium 40 Mg Tablet 40 Mg PO DAILY Hydrochlorothiazide Capsule (Hydrochlorothiazide) 12.5 Mg Capsule 25 Mg PO DAILY Potassium Chloride 20 Meq Tab.er.prt 20 Meq PO DAILY Maxalt (Rizatriptan Benzoate) 10 Mg Tablet 10 Mg PO PRN PRN Clonazepam 1 Mg Tablet 1 Mg PO BID Vitals/I & O Vital Sign - Last 24 Hours 07/27/17 07/27/17 07/27/17 07/27/17 11:00 11:53 15:00 15:11 Temp 97.9 97.7 97.9 97.7 Pulse 59 101 Resp 16 18 B/P (MAP) 131/71 (91) 155/81 (105) Pulse Ox 97 94 O2 Delivery Nasal Cannula Nasal Cannula Room Air Room Air O2 Flow Rate 2.0 2.0 07/27/17 07/27/17 07/27/17 07/27/17 16:05 19:00 19:55 20:00 Temp 98.6 98.6 Pulse 98 Resp 18 18 B/P (MAP) 155/86 (109) O2 Delivery Nasal Cannula Room Air Room Air Room Air O2 Flow Rate 2.0 92.0 07/27/17 07/27/17 07/28/17 07/28/17 21:00 23:00 03:00 06:18 Temp 98.1 98.0 98.1 98.0 Pulse 94 91 Resp 20 16 22 20 B/P (MAP) 157/93 (114) 146/85 (105) Pulse Ox 95 93 O2 Delivery Room Air Room Air Room Air 07/28/17 07/28/17 07/28/17 07:00 07:20 08:20 Temp 98.1 98.1 Pulse 85 85 Resp 18 B/P (MAP) 152/87 (108) 152/87 Pulse Ox 92 O2 Delivery Room Air Room Air Intake and Output 07/28/17 07/28/17 07/29/17 15:00 23:00 07:00 Intake Total 120 ml Balance 120 ml ENSSA BUCHANAN MD Jul 28, 2017 10:15
[2017-07-28 11:00] VITALS: BP 125/76
--- NOTE | 2017-07-28 11:05 | PDOC ---
PROGRESS NOTES Chief Complaint Chief Complaint 1. Acute on chronic back pain, worse now after a fall 2. Hx T12 fx in past admits 3. FTT sxs, generalized weakness, worsening 4. HTN, dyslipidemia, schizophrenia - chronic stable 5. Head lac s.p 6-7 sarah at ER - will come off after 7 days per ER MD 6. Tremors, likely essential - consult neuro,. on clonazepam at home, i have continued History of Present Illness History of Present Illness Same in terms of neuropathy and weakness MRI C spine shows: IMPRESSION: Persistent cervical cord edema at the C5-6 level with enhancement. Enhancement may be seen with inflammation. Therefore this may be seen with myelitis or demyelinating process. Tumor is considered less likely given the lack of enlargement of the cord and stability from the previous study. There is no progressive cord atrophy here. There is moderate spinal canal stenosis at this level. This could be an etiology for cord edema. Overall stable cervical spine MRI from the previous study. LP out, clear, some mild elevation in JESSENIA and glucose I re reviewed MRI, some canal stenosis that can contribute with cord edema? Hence I will consult neurosx Myelitis can be caused by viral, bacterial or autoimmune, TSH normal, Hence I will add ALBERT, CHeck VDRL in [facility] - dw lab and RN and pt herself - agreeable with plan PLAN: ALBERT screen VDRL CSF COnsultbneurosx See orders Vitals Vitals Vital Signs Date Time Temp Pulse Resp B/P (MAP) Pulse Ox O2 Delivery O2 Flow Rate FiO2 07/28/17 08:20 85 152/87 07/28/17 07:20 Room Air 07/28/17 07:00 98.1 18 92 98.1 07/27/17 19:00 92.0 Physical Exam General: Alert, Oriented X3, Cooperative, No acute distress, Other (visible tremors which seem to be worse with movment) Heart: Regular rate, Normal S1, Normal S2 Lungs: Clear Abdomen: Normal bowel sounds, Soft, No tenderness, No hepatosplenomegaly, No masses Extremities: No clubbing, No cyanosis, No edema, Normal pulses, No tenderness/ swelling Skin: No rashes, No breakdown, Other (OA deformiteis both hands, hand tremor) Labs LABS Laboratory Tests Test 07/27/17 13:00 07/28/17 04:00 CSF Tube Number 4 CSF Volume 3.8 CSF Color Colorless CSF Clarity Clear CSF WBC 1 CSF RBC 0 CSF Mononuclear WBCs % 100 % CSF Glucose 88 mg/dL (37-70) CSF Total Protein 60.6 mg/dL (15.0-45.0) White Blood Count 5.1 x10^3/uL (4.0-11.0) Red Blood Count 4.39 x10^6/uL (3.50-5.40) Hemoglobin 12.6 g/dL (12.0-15.5) Hematocrit 37.9 % (36.0-47.0) Mean Corpuscular Volume 86 fL (79-100) Mean Corpuscular Hemoglobin 29 pg (25-35) Mean Corpuscular Hemoglobin Concent 33 g/dL (31-37) Red Cell Distribution Width 15.2 % (11.5-14.5) Platelet Count 168 x10^3/uL (140-400) Neutrophils (%) (Auto) 87 % (31-73) Lymphocytes (%) (Auto) 10 % (24-48) Monocytes (%) (Auto) 2 % (0-9) Eosinophils (%) (Auto) 0 % (0-3) Basophils (%) (Auto) 0 % (0-3) Neutrophils # (Auto) 4.5 x10^3uL (1.8-7.7) Lymphocytes # (Auto) 0.5 x10^3/uL (1.0-4.8) Monocytes # (Auto) 0.1 x10^3/uL (0.0-1.1) Eosinophils # (Auto) 0.0 x10^3/uL (0.0-0.7) Basophils # (Auto) 0.0 x10^3/uL (0.0-0.2) Sodium Level 141 mmol/L (136-145) Potassium Level 4.3 mmol/L (3.5-5.1) Chloride Level 104 mmol/L (98-107) Carbon Dioxide Level 35 mmol/L (21-32) Anion Gap 2 (6-14) Blood Urea Nitrogen 15 mg/dL (7-20) Creatinine 0.6 mg/dL (0.6-1.0) Estimated GFR (Cockcroft-Gault) 100.0 Glucose Level 131 mg/dL (70-99) Calcium Level 9.1 mg/dL (8.5-10.1) Review of Systems Review of Systems same, neck pain, bilateral arm hands tingling intermittent - no SOA, CP or abd pain Assessment and Plan Assessmemt and Plan Problems Medical Problems: (1) Fall Status: Acute (2) Head injury Status: Acute (3) Scalp laceration Status: Acute Problems: Comment Review of Relevant I have reviewed the following items brandie (where applicable) has been applied. Labs Laboratory Tests Test 07/27/17 04:00 07/27/17 13:00 07/28/17 04:00 White Blood Count 4.3 x10^3/uL (4.0-11.0) 5.1 x10^3/uL (4.0-11.0) Red Blood Count 4.37 x10^6/uL (3.50-5.40) 4.39 x10^6/uL (3.50-5.40) Hemoglobin 12.5 g/dL (12.0-15.5) 12.6 g/dL (12.0-15.5) Hematocrit 37.9 % (36.0-47.0) 37.9 % (36.0-47.0) Mean Corpuscular Volume 87 fL (79-100) 86 fL (79-100) Mean Corpuscular Hemoglobin 29 pg (25-35) 29 pg (25-35) Mean Corpuscular Hemoglobin Concent 33 g/dL (31-37) 33 g/dL (31-37) Red Cell Distribution Width 15.4 % (11.5-14.5) 15.2 % (11.5-14.5) Platelet Count 149 x10^3/uL (140-400) 168 x10^3/uL (140-400) Neutrophils (%) (Auto) 89 % (31-73) 87 % (31-73) Lymphocytes (%) (Auto) 10 % (24-48) 10 % (24-48) Monocytes (%) (Auto) 1 % (0-9) 2 % (0-9) Eosinophils (%) (Auto) 0 % (0-3) 0 % (0-3) Basophils (%) (Auto) 0 % (0-3) 0 % (0-3) Neutrophils # (Auto) 3.8 x10^3uL (1.8-7.7) 4.5 x10^3uL (1.8-7.7) Lymphocytes # (Auto) 0.4 x10^3/uL (1.0-4.8) 0.5 x10^3/uL (1.0-4.8) Monocytes # (Auto) 0.1 x10^3/uL (0.0-1.1) 0.1 x10^3/uL (0.0-1.1) Eosinophils # (Auto) 0.0 x10^3/uL (0.0-0.7) 0.0 x10^3/uL (0.0-0.7) Basophils # (Auto) 0.0 x10^3/uL (0.0-0.2) 0.0 x10^3/uL (0.0-0.2) Segmented Neutrophils % 87 % (35-66) Band Neutrophils % 6 % (0-9) Lymphocytes % 5 % (24-48) Atypical Lymphocytes % (Manual) 1 % (0-0) Monocytes % 1 % (0-10) Platelet Estimate Adequate (ADEQUATE) Anisocytosis Slight Sodium Level 141 mmol/L (136-145) 141 mmol/L (136-145) Potassium Level 4.4 mmol/L (3.5-5.1) 4.3 mmol/L (3.5-5.1) Chloride Level 103 mmol/L (98-107) 104 mmol/L (98-107) Carbon Dioxide Level 34 mmol/L (21-32) 35 mmol/L (21-32) Anion Gap 4 (6-14) 2 (6-14) Blood Urea Nitrogen 15 mg/dL (7-20) 15 mg/dL (7-20) Creatinine 0.5 mg/dL (0.6-1.0) 0.6 mg/dL (0.6-1.0) Estimated GFR (Cockcroft-Gault) 123.4 100.0 Glucose Level 132 mg/dL (70-99) 131 mg/dL (70-99) Calcium Level 9.2 mg/dL (8.5-10.1) 9.1 mg/dL (8.5-10.1) CSF Tube Number 4 CSF Volume 3.8 CSF Color Colorless CSF Clarity Clear CSF WBC 1 CSF RBC 0 CSF Mononuclear WBCs % 100 % CSF Glucose 88 mg/dL (37-70) CSF Total Protein 60.6 mg/dL (15.0-45.0) Laboratory Tests Test 07/27/17 13:00 07/28/17 04:00 CSF Tube Number 4 CSF Volume 3.8 CSF Color Colorless CSF Clarity Clear CSF WBC 1 CSF RBC 0 CSF Mononuclear WBCs % 100 % CSF Glucose 88 mg/dL (37-70) CSF Total Protein 60.6 mg/dL (15.0-45.0) White Blood Count 5.1 x10^3/uL (4.0-11.0) Red Blood Count 4.39 x10^6/uL (3.50-5.40) Hemoglobin 12.6 g/dL (12.0-15.5) Hematocrit 37.9 % (36.0-47.0) Mean Corpuscular Volume 86 fL (79-100) Mean Corpuscular Hemoglobin 29 pg (25-35) Mean Corpuscular Hemoglobin Concent 33 g/dL (31-37) Red Cell Distribution Width 15.2 % (11.5-14.5) Platelet Count 168 x10^3/uL (140-400) Neutrophils (%) (Auto) 87 % (31-73) Lymphocytes (%) (Auto) 10 % (24-48) Monocytes (%) (Auto) 2 % (0-9) Eosinophils (%) (Auto) 0 % (0-3) Basophils (%) (Auto) 0 % (0-3) Neutrophils # (Auto) 4.5 x10^3uL (1.8-7.7) Lymphocytes # (Auto) 0.5 x10^3/uL (1.0-4.8) Monocytes # (Auto) 0.1 x10^3/uL (0.0-1.1) Eosinophils # (Auto) 0.0 x10^3/uL (0.0-0.7) Basophils # (Auto) 0.0 x10^3/uL (0.0-0.2) Sodium Level 141 mmol/L (136-145) Potassium Level 4.3 mmol/L (3.5-5.1) Chloride Level 104 mmol/L (98-107) Carbon Dioxide Level 35 mmol/L (21-32) Anion Gap 2 (6-14) Blood Urea Nitrogen 15 mg/dL (7-20) Creatinine 0.6 mg/dL (0.6-1.0) Estimated GFR (Cockcroft-Gault) 100.0 Glucose Level 131 mg/dL (70-99) Calcium Level 9.1 mg/dL (8.5-10.1) Microbiology 07/27/17 Gram Stain - Final, Complete Medications Current Medications Diphtheria/ Tetanus/Acell Pertussis (Boostrix) 0.5 ml ONCE ONCE VAX IM ; Start 07/24/17 at 17:00; Stop 07/24/17 at 17:56; Status DC Lidocaine/ Epinephrine (Xylocaine 1%-Epi 1:100,000) 20 ml 1X ONCE IJ Last administered on 07/24/17 17:01; Start 07/24/17 at 17:00; Stop 07/24/17 at 17 :01; Status DC Ondansetron HCl (Zofran Odt) 4 mg 1X ONCE PO Last administered on 07/24/17 17:15; Start 07/24/17 at 17:15; Stop 07/24/17 at 17:16; Status DC Acetaminophen (Tylenol) 650 mg 1X ONCE PO Last administered on 07/24/17 17: 14; Start 07/24/17 at 17:15; Stop 07/24/17 at 17:16; Status DC Ondansetron HCl (Zofran Odt) 4 mg STK-MED ONCE .ROUTE ; Start 07/24/17 at 17:12 ; Stop 07/24/17 at 17:13; Status DC Ondansetron HCl (Zofran) 4 mg PRN Q6HRS PRN IV NAUSEA/VOMITING, 1st choice Last administered on 07/28/17 08:35; Start 07/24/17 at 19:00 Prochlorperazine Edisylate (Compazine) 10 mg PRN Q6HRS PRN IV NAUSEA/VOMITING, 2nd choice; Start 07/24/17 at 19:00 Prochlorperazine (Compazine) 25 mg PRN Q12HR PRN [place] NAUSEA/VOMITING; Start at 19:00 Al Hydroxide/Mg Hydroxide (Mylanta Plus Xs) 30 ml PRN Q3HRS PRN PO HEARTBURN / GAS; Start 07/24/17 at 19:00 Calcium Carbonate/ Glycine (Tums) 500 mg PRN Q3HRS PRN PO UPSET STOMACH Last administered on 07/27/17 07:14; Start 07/24/17 at 19:00 Oxycodone HCl (Roxicodone) 5 mg PRN Q3HRS PRN PO BREAKTHROUGH PAIN Last administered on 07/28/17 06:18; Start 07/24/17 at 19:00 Morphine Sulfate 1 mg PRN Q1HR PRN IV PAIN Last administered on 07/27/17 15: 11; Start 07/24/17 at 19:00 Ketorolac Tromethamine (Toradol) 15 mg PRN Q6HRS PRN IV PAIN Last administered on 07/24/17 23:50; Start 07/24/17 at 19:00; Stop 07/29/17 at 18:59 Acetaminophen (Tylenol) 650 mg PRN Q6HRS PRN PO Headaches, Temp > 101.5F Last administered on 07/27/17 22:17; Start 07/24/17 at 19:00 Ibuprofen (Motrin) 400 mg PRN Q6HRS PRN PO MILD PAIN Last administered on 07/26 08:43; Start 07/24/17 at 19:00 Docusate Sodium (Colace) 100 mg BID PO Last administered on 07/28/17 08:19; Start 07/24/17 at 21:00 Magnesium Hydroxide (Milk Of Magnesia) 2,400 mg PRN Q12HR PRN PO CONSTIPATION; Start 07/24/17 at 19:00 Bisacodyl (Dulcolax Supp) 10 mg PRN DAILY PRN [place] CONSTIPATION; Start 07/24/17 at 19:00 Enoxaparin Sodium (Lovenox 40mg Syringe) 40 mg Q24H SQ Last administered on 08:20; Start 07/25/17 at 09:00 Lidocaine (Lidoderm) 1 patch DAILY TD Last administered on 07/28/17 08:19; Start 07/24/17 at 21:00 Atorvastatin Calcium (Lipitor) 40 mg QHS PO Last administered on 07/27/17 21: 58; Start 07/25/17 at 21:00 Clonazepam (KlonoPIN) 1 mg BID PO Last administered on 07/28/17 08:20; Start 07/25/17 at 09:00 Tizanidine HCl (Zanaflex) 4 mg PRN Q8HRS PRN PO MUSCLE SPASMS Last administered on 07/28/17 08:19; Start 07/24/17 at 22:45 Bupropion HCl (Wellbutrin Xl) 300 mg DAILY PO Last administered on 07/28/17 08:20; Start 07/25/17 at 09:00 Lubiprostone (Amitiza) 24 mcg BIDWMEALS PO Last administered on 07/28/17 08: 19; Start 07/25/17 at 08:00 Lurasidone HCl (Latuda) 120 mg DAILYWSUP PO Last administered on 07/27/17 18: 23; Start 07/25/17 at 17:00 Non-Formulary Medication 1 each HS PO ; Start 07/25/17 at 21:00; Status UNV Losartan Potassium (Cozaar) 50 mg DAILY PO Last administered on 07/28/17 08: 20; Start 07/25/17 at 09:00 Influenza Virus Vaccine Quadrival (Fluarix Quad 6230-6182 Syringe) 0.5 ml ONCE ONCE VAX IM Last administered on 07/26/17 11:59; Start 07/26/17 at 10:00; Stop 07/26/17 at 10:01; Status DC Gabapentin (Neurontin) 300 mg BID PO Last administered on 07/28/17 08:20; Start 07/25/17 at 09:00 Gadobutrol (Gadavist) 4.5 mmol 1X ONCE IV Last administered on 07/26/17 11: 13; Start 07/26/17 at 11:00; Stop 07/26/17 at 11:01; Status DC Dexamethasone Sodium Phosphate (Decadron) 4 mg Q6HRS IV Last administered on 06:19; Start 07/26/17 at 18:00; Stop 07/28/17 at 08:59; Status DC Lidocaine/Sodium Bicarbonate (Buffered Lidocaine 1%) 20 ml 1X ONCE IJ Last administered on 07/27/17 13:02; Start 07/27/17 at 11:45; Stop 07/27/17 at 11 :46; Status DC Dexamethasone (Decadron) 2 mg BID PO ; Start 07/28/17 at 09:00; Stop 10/18/17 at 09:01 Active Scripts Active Morphine Sulfate 15 Mg Tablet 1 Tab PO PRN Q6-8HRS PRN Naproxen 375 Mg Tablet 375 Mg PO BID PRN Reported Tizanidine Hcl 4 Mg Tablet 4 Mg PO PRN Q8HRS PRN Amitiza (Lubiprostone) 24 Mcg Capsule 24 Mcg PO BID Stool Softener (Docusate Sodium) 100 Mg Capsule 100 Mg PO DAILY Melatonin 5 Mg Tablet (Melatonin/Pyridoxine Hcl (B6)) 1 Each Tablet 1 Each PO HS Latuda (Lurasidone Hcl) 120 Mg Tablet 120 Mg PO DAILYWSUP Bupropion Xl (Bupropion Hcl) 300 Mg Tab.er.24h 300 Mg PO DAILY Alendronate Sodium 70 Mg Tablet 70 Mg PO WEEKLY Ibuprofen 600 Mg Tablet 600 Mg PO Q6H PRN Hydrocodone-Apap 5-325 (Hydrocodone Bit/Acetaminophen) 1 Each Tablet 1 Tab PO PRN Q6HRS PRN Vitamin D-3 (Cholecalciferol (Vitamin D3)) 2,000 Unit Tablet 5,000 Unit PO WEEKLY Losartan Potassium 100 Mg Tablet 50 Mg PO DAILY Amlodipine Besylate 10 Mg Tablet 10 Mg PO DAILY Atorvastatin Calcium 40 Mg Tablet 40 Mg PO DAILY Hydrochlorothiazide Capsule (Hydrochlorothiazide) 12.5 Mg Capsule 25 Mg PO DAILY Potassium Chloride 20 Meq Tab.er.prt 20 Meq PO DAILY Maxalt (Rizatriptan Benzoate) 10 Mg Tablet 10 Mg PO PRN PRN Clonazepam 1 Mg Tablet 1 Mg PO BID Vitals/I & O Vital Sign - Last 24 Hours 07/27/17 07/27/17 07/27/17 07/27/17 11:53 15:00 15:11 16:05 Temp 97.7 97.7 Pulse 101 Resp 18 B/P (MAP) 155/81 (105) Pulse Ox 94 O2 Delivery Nasal Cannula Room Air Room Air Nasal Cannula O2 Flow Rate 2.0 2.0 07/27/17 07/27/17 07/27/17 07/27/17 19:00 19:55 20:00 21:00 Temp 98.6 98.6 Pulse 98 Resp 18 18 20 B/P (MAP) 155/86 (109) O2 Delivery Room Air Room Air Room Air O2 Flow Rate 92.0 07/27/17 07/28/17 07/28/17 07/28/17 23:00 03:00 06:18 07:00 Temp 98.1 98.0 98.1 98.1 98.0 98.1 Pulse 94 91 85 Resp 16 22 20 18 B/P (MAP) 157/93 (114) 146/85 (105) 152/87 (108) Pulse Ox 95 93 92 O2 Delivery Room Air Room Air Room Air Room Air 07/28/17 07/28/17 07:20 08:20 Pulse 85 B/P (MAP) 152/87 O2 Delivery Room Air Intake and Output 07/28/17 07/28/17 07/29/17 15:00 23:00 07:00 Intake Total 120 ml Balance 120 ml TONI PRICE MD Jul 28, 2017 11:05
[2017-07-28] MEDS: DEXAMETHASONE 1 MG TABLET PO SCH ×2 (12:24→21:24)
[2017-07-28 15:00] VITALS: BP 147/87
[2017-07-28] MEDS: LURASIDONE 40 MG TABLET. PO SCH (18:23)
[2017-07-28 19:15] VITALS: BP 140/79
[2017-07-28] MEDS: ATORVASTATIN CALCIUM 40 MG TABLET. PO SCH (21:24)
[2017-07-28] MEDS: ACETAMINOPHEN 325 MG TABLET. PO PRN (21:30)
[2017-07-28 23:14] VITALS: BP 130/83
[2017-07-29 03:15] VITALS: BP 119/90
[2017-07-29 05:51] LABS: BASO % 0 % (0-3); EOS % 0 % (0-3); HEMATOCRIT 34.8 % (36.0-47.0); HEMOGLOBIN 11.6 g/dL (12.0-15.5); LYMPH # 1.2 x10^3/uL (1.0-4.8); LYMPH % 20 % (24-48); MEAN CORPUSCULAR HEMOGLOBIN 29 pg (25-35); MEAN CORPUSCULAR HGB CONC 33 g/dL (31-37); MEAN CORPUSCULAR VOLUME 87 fL (79-100); MONO % 6 % (0-9); NEUT % 73 % (31-73); PLATELET COUNT 151 x10^3/uL (140-400); RED BLOOD COUNT 4.03 x10^6/uL (3.50-5.40); RED CELL DISTRIBUTION WIDTH 15.3 % (11.5-14.5); WHITE BLOOD COUNT 5.7 x10^3/uL (4.0-11.0)
[2017-07-29 06:05] LABS: CALCIUM 8.6 mg/dL (8.5-10.1); CREATININE 0.5 mg/dL (0.6-1.0); GFR 123.4; POTASSIUM 3.8 mmol/L (3.5-5.1)
[2017-07-29 07:00] VITALS: BP 139/73
[2017-07-29] MEDS: DEXAMETHASONE 1 MG TABLET PO SCH (09:11)
[2017-07-29] MEDS: GABAPENTIN 300 MG CAPSULE. PO SCH (09:11)
[2017-07-29] MEDS: DOCUSATE SODIUM 100 MG CAPSULE. PO SCH (09:11)
[2017-07-29] MEDS: buPROPion XL 150 MG TAB.ER.24H. PO SCH (09:11)
[2017-07-29] MEDS: LUBIPROSTONE 8 MCG CAPSULE PO SCH (09:11)
[2017-07-29 09:12] VITALS: BP 139/73
[2017-07-29] MEDS: LIDOCAINE (700MG/PATCH) PATCH. TD SCH (09:12)
[2017-07-29] MEDS: ENOXAPARIN 40 MG/0.4 ML SYRINGE. SQ SCH (09:12)
[2017-07-29] MEDS: clonazePAM 1 MG TABLET PO SCH (09:12)
[2017-07-29] MEDS: LOSARTAN POTASSIUM 50 MG TABLET. PO SCH (09:12)
[2017-07-29] MEDS: ONDANSETRON PF 4 MG/2 ML VIAL. IV PRN (09:21)
[2017-07-29] MEDS: IBUPROFEN 400 MG TABLET. PO PRN (09:21)
--- NOTE | 2017-07-29 09:49 | PDOC ---
PROGRESS NOTES Subjective Subjective She admits some low back pain but her family did not bring in her back brace she had at home yet. Objective Objective Vital Signs Date Time Temp Pulse Resp B/P (MAP) Pulse Ox O2 Delivery O2 Flow Rate FiO2 07/29/17 09:12 74 139/73 07/29/17 07:00 98.1 18 93 Room Air 98.1 07/28/17 19:15 2.0 Physical Exam Physical Exam She is alert,supine in bed and she does not seem to be in any acute distress.She continues with generalized muscle weakness,more so in hand intrinsic muscles and dorsiflexor muscles of both feet and she need assistance during transfers. Assessment Assessment Problems Medical Problems: (1) Fall Status: Acute (2) Head injury Status: Acute (3) Scalp laceration Status: Acute Plan Plan of Care To SNF when medically stable. Comment Review of Relevant I have reviewed the following items brandie (where applicable) has been applied. Labs Laboratory Tests Test 07/27/17 13:00 07/28/17 04:00 07/28/17 09:30 07/29/17 03:50 CSF Tube Number 4 CSF Volume 3.8 CSF Color Colorless CSF Clarity Clear CSF WBC 1 CSF RBC 0 CSF Mononuclear WBCs % 100 % CSF Glucose 88 mg/dL (37-70) CSF Total Protein 60.6 mg/dL (15.0-45.0) White Blood Count 5.1 x10^3/uL (4.0-11.0) 5.7 x10^3/uL (4.0-11.0) Red Blood Count 4.39 x10^6/uL (3.50-5.40) 4.03 x10^6/uL (3.50-5.40) Hemoglobin 12.6 g/dL (12.0-15.5) 11.6 g/dL (12.0-15.5) Hematocrit 37.9 % (36.0-47.0) 34.8 % (36.0-47.0) Mean Corpuscular Volume 86 fL (79-100) 87 fL (79-100) Mean Corpuscular Hemoglobin 29 pg (25-35) 29 pg (25-35) Mean Corpuscular Hemoglobin Concent 33 g/dL (31-37) 33 g/dL (31-37) Red Cell Distribution Width 15.2 % (11.5-14.5) 15.3 % (11.5-14.5) Platelet Count 168 x10^3/uL (140-400) 151 x10^3/uL (140-400) Neutrophils (%) (Auto) 87 % (31-73) 73 % (31-73) Lymphocytes (%) (Auto) 10 % (24-48) 20 % (24-48) Monocytes (%) (Auto) 2 % (0-9) 6 % (0-9) Eosinophils (%) (Auto) 0 % (0-3) 0 % (0-3) Basophils (%) (Auto) 0 % (0-3) 0 % (0-3) Neutrophils # (Auto) 4.5 x10^3uL (1.8-7.7) 4.2 x10^3uL (1.8-7.7) Lymphocytes # (Auto) 0.5 x10^3/uL (1.0-4.8) 1.2 x10^3/uL (1.0-4.8) Monocytes # (Auto) 0.1 x10^3/uL (0.0-1.1) 0.3 x10^3/uL (0.0-1.1) Eosinophils # (Auto) 0.0 x10^3/uL (0.0-0.7) 0.0 x10^3/uL (0.0-0.7) Basophils # (Auto) 0.0 x10^3/uL (0.0-0.2) 0.0 x10^3/uL (0.0-0.2) Sodium Level 141 mmol/L (136-145) 143 mmol/L (136-145) Potassium Level 4.3 mmol/L (3.5-5.1) 3.8 mmol/L (3.5-5.1) Chloride Level 104 mmol/L (98-107) 105 mmol/L (98-107) Carbon Dioxide Level 35 mmol/L (21-32) 35 mmol/L (21-32) Anion Gap 2 (6-14) 3 (6-14) Blood Urea Nitrogen 15 mg/dL (7-20) 17 mg/dL (7-20) Creatinine 0.6 mg/dL (0.6-1.0) 0.5 mg/dL (0.6-1.0) Estimated GFR (Cockcroft-Gault) 100.0 123.4 Glucose Level 131 mg/dL (70-99) 103 mg/dL (70-99) Calcium Level 9.1 mg/dL (8.5-10.1) 8.6 mg/dL (8.5-10.1) Erythrocyte Sedimentation Rate 8 (0-25) Laboratory Tests Test 07/29/17 03:50 White Blood Count 5.7 x10^3/uL (4.0-11.0) Red Blood Count 4.03 x10^6/uL (3.50-5.40) Hemoglobin 11.6 g/dL (12.0-15.5) Hematocrit 34.8 % (36.0-47.0) Mean Corpuscular Volume 87 fL (79-100) Mean Corpuscular Hemoglobin 29 pg (25-35) Mean Corpuscular Hemoglobin Concent 33 g/dL (31-37) Red Cell Distribution Width 15.3 % (11.5-14.5) Platelet Count 151 x10^3/uL (140-400) Neutrophils (%) (Auto) 73 % (31-73) Lymphocytes (%) (Auto) 20 % (24-48) Monocytes (%) (Auto) 6 % (0-9) Eosinophils (%) (Auto) 0 % (0-3) Basophils (%) (Auto) 0 % (0-3) Neutrophils # (Auto) 4.2 x10^3uL (1.8-7.7) Lymphocytes # (Auto) 1.2 x10^3/uL (1.0-4.8) Monocytes # (Auto) 0.3 x10^3/uL (0.0-1.1) Eosinophils # (Auto) 0.0 x10^3/uL (0.0-0.7) Basophils # (Auto) 0.0 x10^3/uL (0.0-0.2) Sodium Level 143 mmol/L (136-145) Potassium Level 3.8 mmol/L (3.5-5.1) Chloride Level 105 mmol/L (98-107) Carbon Dioxide Level 35 mmol/L (21-32) Anion Gap 3 (6-14) Blood Urea Nitrogen 17 mg/dL (7-20) Creatinine 0.5 mg/dL (0.6-1.0) Estimated GFR (Cockcroft-Gault) 123.4 Glucose Level 103 mg/dL (70-99) Calcium Level 8.6 mg/dL (8.5-10.1) Microbiology 07/27/17 Anaerobic/Aerobic Culture - Preliminary, Resulted 07/27/17 Anaerobic Culture Result 1 (TRUNG) - Preliminary, Resulted 07/27/17 Aerobic Culture - Preliminary, Resulted 07/27/17 Aerobic Culture Result 1 (TRUNG) - Preliminary, Resulted Medications Current Medications Diphtheria/ Tetanus/Acell Pertussis (Boostrix) 0.5 ml ONCE ONCE VAX IM ; Start 07/24/17 at 17:00; Stop 07/24/17 at 17:56; Status DC Lidocaine/ Epinephrine (Xylocaine 1%-Epi 1:100,000) 20 ml 1X ONCE IJ Last administered on 07/24/17 17:01; Start 07/24/17 at 17:00; Stop 07/24/17 at 17 :01; Status DC Ondansetron HCl (Zofran Odt) 4 mg 1X ONCE PO Last administered on 07/24/17 17:15; Start 07/24/17 at 17:15; Stop 07/24/17 at 17:16; Status DC Acetaminophen (Tylenol) 650 mg 1X ONCE PO Last administered on 07/24/17 17: 14; Start 07/24/17 at 17:15; Stop 07/24/17 at 17:16; Status DC Ondansetron HCl (Zofran Odt) 4 mg STK-MED ONCE .ROUTE ; Start 07/24/17 at 17:12 ; Stop 07/24/17 at 17:13; Status DC Ondansetron HCl (Zofran) 4 mg PRN Q6HRS PRN IV NAUSEA/VOMITING, 1st choice Last administered on 07/29/17 09:21; Start 07/24/17 at 19:00 Prochlorperazine Edisylate (Compazine) 10 mg PRN Q6HRS PRN IV NAUSEA/VOMITING, 2nd choice; Start 07/24/17 at 19:00 Prochlorperazine (Compazine) 25 mg PRN Q12HR PRN [place] NAUSEA/VOMITING; Start at 19:00 Al Hydroxide/Mg Hydroxide (Mylanta Plus Xs) 30 ml PRN Q3HRS PRN PO HEARTBURN / GAS; Start 07/24/17 at 19:00 Calcium Carbonate/ Glycine (Tums) 500 mg PRN Q3HRS PRN PO UPSET STOMACH Last administered on 07/27/17 07:14; Start 07/24/17 at 19:00 Oxycodone HCl (Roxicodone) 5 mg PRN Q3HRS PRN PO BREAKTHROUGH PAIN Last administered on 07/28/17 06:18; Start 07/24/17 at 19:00 Morphine Sulfate 1 mg PRN Q1HR PRN IV PAIN Last administered on 07/27/17 15: 11; Start 07/24/17 at 19:00 Ketorolac Tromethamine (Toradol) 15 mg PRN Q6HRS PRN IV PAIN Last administered on 07/24/17 23:50; Start 07/24/17 at 19:00; Stop 07/29/17 at 18:59 Acetaminophen (Tylenol) 650 mg PRN Q6HRS PRN PO Headaches, Temp > 101.5F Last administered on 07/28/17 21:30; Start 07/24/17 at 19:00 Ibuprofen (Motrin) 400 mg PRN Q6HRS PRN PO MILD PAIN Last administered on 07/29 09:21; Start 07/24/17 at 19:00 Docusate Sodium (Colace) 100 mg BID PO Last administered on 07/29/17 09:11; Start 07/24/17 at 21:00 Magnesium Hydroxide (Milk Of Magnesia) 2,400 mg PRN Q12HR PRN PO CONSTIPATION; Start 07/24/17 at 19:00 Bisacodyl (Dulcolax Supp) 10 mg PRN DAILY PRN [place] CONSTIPATION; Start 07/24/17 at 19:00 Enoxaparin Sodium (Lovenox 40mg Syringe) 40 mg Q24H SQ Last administered on 09:12; Start 07/25/17 at 09:00 Lidocaine (Lidoderm) 1 patch DAILY TD Last administered on 07/29/17 09:12; Start 07/24/17 at 21:00 Atorvastatin Calcium (Lipitor) 40 mg QHS PO Last administered on 07/28/17 21: 24; Start 07/25/17 at 21:00 Clonazepam (KlonoPIN) 1 mg BID PO Last administered on 07/29/17 09:12; Start 07/25/17 at 09:00 Tizanidine HCl (Zanaflex) 4 mg PRN Q8HRS PRN PO MUSCLE SPASMS Last administered on 07/28/17 20:10; Start 07/24/17 at 22:45 Bupropion HCl (Wellbutrin Xl) 300 mg DAILY PO Last administered on 07/29/17 09:11; Start 07/25/17 at 09:00 Lubiprostone (Amitiza) 24 mcg BIDWMEALS PO Last administered on 07/29/17 09: 11; Start 07/25/17 at 08:00 Lurasidone HCl (Latuda) 120 mg DAILYWSUP PO Last administered on 07/28/17 18: 23; Start 07/25/17 at 17:00 Non-Formulary Medication 1 each HS PO ; Start 07/25/17 at 21:00; Status UNV Losartan Potassium (Cozaar) 50 mg DAILY PO Last administered on 07/29/17 09: 12; Start 07/25/17 at 09:00 Influenza Virus Vaccine Quadrival (Fluarix Quad 9421-1335 Syringe) 0.5 ml ONCE ONCE VAX IM Last administered on 07/26/17 11:59; Start 07/26/17 at 10:00; Stop 07/26/17 at 10:01; Status DC Gabapentin (Neurontin) 300 mg BID PO Last administered on 07/29/17 09:11; Start 07/25/17 at 09:00 Gadobutrol (Gadavist) 4.5 mmol 1X ONCE IV Last administered on 07/26/17 11: 13; Start 07/26/17 at 11:00; Stop 07/26/17 at 11:01; Status DC Dexamethasone Sodium Phosphate (Decadron) 4 mg Q6HRS IV Last administered on 06:19; Start 07/26/17 at 18:00; Stop 07/28/17 at 08:59; Status DC Lidocaine/Sodium Bicarbonate (Buffered Lidocaine 1%) 20 ml 1X ONCE IJ Last administered on 07/27/17 13:02; Start 07/27/17 at 11:45; Stop 07/27/17 at 11 :46; Status DC Dexamethasone (Decadron) 2 mg BID PO Last administered on 07/29/17t 09:11; Start 07/28/17 at 09:00; Stop 07/29/17 at 09:01; Status DC Active Scripts Active Morphine Sulfate 15 Mg Tablet 1 Tab PO PRN Q6-8HRS PRN Naproxen 375 Mg Tablet 375 Mg PO BID PRN Reported Tizanidine Hcl 4 Mg Tablet 4 Mg PO PRN Q8HRS PRN Amitiza (Lubiprostone) 24 Mcg Capsule 24 Mcg PO BID Stool Softener (Docusate Sodium) 100 Mg Capsule 100 Mg PO DAILY Melatonin 5 Mg Tablet (Melatonin/Pyridoxine Hcl (B6)) 1 Each Tablet 1 Each PO HS Latuda (Lurasidone Hcl) 120 Mg Tablet 120 Mg PO DAILYWSUP Bupropion Xl (Bupropion Hcl) 300 Mg Tab.er.24h 300 Mg PO DAILY Alendronate Sodium 70 Mg Tablet 70 Mg PO WEEKLY Ibuprofen 600 Mg Tablet 600 Mg PO Q6H PRN Hydrocodone-Apap 5-325 (Hydrocodone Bit/Acetaminophen) 1 Each Tablet 1 Tab PO PRN Q6HRS PRN Vitamin D-3 (Cholecalciferol (Vitamin D3)) 2,000 Unit Tablet 5,000 Unit PO WEEKLY Losartan Potassium 100 Mg Tablet 50 Mg PO DAILY Amlodipine Besylate 10 Mg Tablet 10 Mg PO DAILY Atorvastatin Calcium 40 Mg Tablet 40 Mg PO DAILY Hydrochlorothiazide Capsule (Hydrochlorothiazide) 12.5 Mg Capsule 25 Mg PO DAILY Potassium Chloride 20 Meq Tab.er.prt 20 Meq PO DAILY Maxalt (Rizatriptan Benzoate) 10 Mg Tablet 10 Mg PO PRN PRN Clonazepam 1 Mg Tablet 1 Mg PO BID Vitals/I & O Vital Sign - Last 24 Hours 07/28/17 07/28/17 07/28/17 07/28/17 11:00 15:00 19:15 19:40 Temp 98.8 99.0 98.5 98.8 99.0 98.5 Pulse 81 100 97 Resp 18 B/P (MAP) 125/76 (92) 147/87 (107) 140/79 (99) Pulse Ox 92 90 94 O2 Delivery Room Air Room Air Nasal Cannula Room Air O2 Flow Rate 2.0 07/28/17 07/29/17 07/29/17 07/29/17 23:14 03:15 07:00 09:12 Temp 98.0 98.1 98.1 98.0 98.1 98.1 Pulse 79 65 74 74 Resp 18 18 18 B/P (MAP) 130/83 (99) 119/90 (100) 139/73 (95) 139/73 Pulse Ox 94 95 93 O2 Delivery Room Air Room Air Room Air NESSA BUCHANAN MD Jul 29, 2017 09:49
--- NOTE | 2017-07-29 10:46 | PDOC ---
PROGRESS NOTES Assessment Problems Medical Problems: (1) Fall Status: Acute (2) Head injury Status: Acute (3) Scalp laceration Status: Acute C5-6 cord edema, myelitis? CSF findings make immune-mediated myelitis much less likely as the only abnormal finding is elevated protein level which is nonspecific. Therefore I believe the cervical cord edema is on a degenerative basis. Gait instability. Generalized weakness. Essential tremor, no tremor on exam right now Fall. C-spine stenosis. Degenerative spine disease. Muscular atrophy, UE. HTN HLD Thyroid nodule. Schizophrenia. Bipolar disorder with panic attack. L2 old fracture s/p vertebroplasty. Dr. 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 Brennan in one month. Subjective Denies neck pain, has chronic back pain, otherwise no complaints Objective Vital Signs Date Time Temp Pulse Resp B/P (MAP) Pulse Ox O2 Delivery O2 Flow Rate FiO2 07/29/17 09:12 74 139/73 07/29/17 07:00 98.1 18 93 Room Air 98.1 07/28/17 19:15 2.0 PHYSICAL EXAM Alert. Oriented to time, place and person. PERRL. EOMI. CN: no focal findings. Muscle tone: normal. Muscle strength: 5/5, but intrinsic muscle atrophy in hands, worse on the right DTR: 2+ Plantar reflex: flexor Gait: not examined in bed. Sensory exam: no abnormal findings. No cerebellar signs elicited. Review of Relevant I have reviewed the following items brandie (where applicable) has been applied. Labs Laboratory Tests Test 07/27/17 13:00 07/28/17 04:00 07/28/17 09:30 07/29/17 03:50 CSF Tube Number 4 CSF Volume 3.8 CSF Color Colorless CSF Clarity Clear CSF WBC 1 CSF RBC 0 CSF Mononuclear WBCs % 100 % CSF Glucose 88 mg/dL (37-70) CSF Total Protein 60.6 mg/dL (15.0-45.0) White Blood Count 5.1 x10^3/uL (4.0-11.0) 5.7 x10^3/uL (4.0-11.0) Red Blood Count 4.39 x10^6/uL (3.50-5.40) 4.03 x10^6/uL (3.50-5.40) Hemoglobin 12.6 g/dL (12.0-15.5) 11.6 g/dL (12.0-15.5) Hematocrit 37.9 % (36.0-47.0) 34.8 % (36.0-47.0) Mean Corpuscular Volume 86 fL (79-100) 87 fL (79-100) Mean Corpuscular Hemoglobin 29 pg (25-35) 29 pg (25-35) Mean Corpuscular Hemoglobin Concent 33 g/dL (31-37) 33 g/dL (31-37) Red Cell Distribution Width 15.2 % (11.5-14.5) 15.3 % (11.5-14.5) Platelet Count 168 x10^3/uL (140-400) 151 x10^3/uL (140-400) Neutrophils (%) (Auto) 87 % (31-73) 73 % (31-73) Lymphocytes (%) (Auto) 10 % (24-48) 20 % (24-48) Monocytes (%) (Auto) 2 % (0-9) 6 % (0-9) Eosinophils (%) (Auto) 0 % (0-3) 0 % (0-3) Basophils (%) (Auto) 0 % (0-3) 0 % (0-3) Neutrophils # (Auto) 4.5 x10^3uL (1.8-7.7) 4.2 x10^3uL (1.8-7.7) Lymphocytes # (Auto) 0.5 x10^3/uL (1.0-4.8) 1.2 x10^3/uL (1.0-4.8) Monocytes # (Auto) 0.1 x10^3/uL (0.0-1.1) 0.3 x10^3/uL (0.0-1.1) Eosinophils # (Auto) 0.0 x10^3/uL (0.0-0.7) 0.0 x10^3/uL (0.0-0.7) Basophils # (Auto) 0.0 x10^3/uL (0.0-0.2) 0.0 x10^3/uL (0.0-0.2) Sodium Level 141 mmol/L (136-145) 143 mmol/L (136-145) Potassium Level 4.3 mmol/L (3.5-5.1) 3.8 mmol/L (3.5-5.1) Chloride Level 104 mmol/L (98-107) 105 mmol/L (98-107) Carbon Dioxide Level 35 mmol/L (21-32) 35 mmol/L (21-32) Anion Gap 2 (6-14) 3 (6-14) Blood Urea Nitrogen 15 mg/dL (7-20) 17 mg/dL (7-20) Creatinine 0.6 mg/dL (0.6-1.0) 0.5 mg/dL (0.6-1.0) Estimated GFR (Cockcroft-Gault) 100.0 123.4 Glucose Level 131 mg/dL (70-99) 103 mg/dL (70-99) Calcium Level 9.1 mg/dL (8.5-10.1) 8.6 mg/dL (8.5-10.1) Erythrocyte Sedimentation Rate 8 (0-25) Laboratory Tests Test 07/29/17 03:50 White Blood Count 5.7 x10^3/uL (4.0-11.0) Red Blood Count 4.03 x10^6/uL (3.50-5.40) Hemoglobin 11.6 g/dL (12.0-15.5) Hematocrit 34.8 % (36.0-47.0) Mean Corpuscular Volume 87 fL (79-100) Mean Corpuscular Hemoglobin 29 pg (25-35) Mean Corpuscular Hemoglobin Concent 33 g/dL (31-37) Red Cell Distribution Width 15.3 % (11.5-14.5) Platelet Count 151 x10^3/uL (140-400) Neutrophils (%) (Auto) 73 % (31-73) Lymphocytes (%) (Auto) 20 % (24-48) Monocytes (%) (Auto) 6 % (0-9) Eosinophils (%) (Auto) 0 % (0-3) Basophils (%) (Auto) 0 % (0-3) Neutrophils # (Auto) 4.2 x10^3uL (1.8-7.7) Lymphocytes # (Auto) 1.2 x10^3/uL (1.0-4.8) Monocytes # (Auto) 0.3 x10^3/uL (0.0-1.1) Eosinophils # (Auto) 0.0 x10^3/uL (0.0-0.7) Basophils # (Auto) 0.0 x10^3/uL (0.0-0.2) Sodium Level 143 mmol/L (136-145) Potassium Level 3.8 mmol/L (3.5-5.1) Chloride Level 105 mmol/L (98-107) Carbon Dioxide Level 35 mmol/L (21-32) Anion Gap 3 (6-14) Blood Urea Nitrogen 17 mg/dL (7-20) Creatinine 0.5 mg/dL (0.6-1.0) Estimated GFR (Cockcroft-Gault) 123.4 Glucose Level 103 mg/dL (70-99) Calcium Level 8.6 mg/dL (8.5-10.1) Microbiology 07/27/17 Anaerobic/Aerobic Culture - Preliminary, Resulted 07/27/17 Anaerobic Culture Result 1 (TRUNG) - Preliminary, Resulted 07/27/17 Aerobic Culture - Preliminary, Resulted 07/27/17 Aerobic Culture Result 1 (TRUNG) - Preliminary, Resulted Medications Current Medications Diphtheria/ Tetanus/Acell Pertussis (Boostrix) 0.5 ml ONCE ONCE VAX IM ; Start 07/24/17 at 17:00; Stop 07/24/17 at 17:56; Status DC Lidocaine/ Epinephrine (Xylocaine 1%-Epi 1:100,000) 20 ml 1X ONCE IJ Last administered on 07/24/17 17:01; Start 07/24/17 at 17:00; Stop 07/24/17 at 17 :01; Status DC Ondansetron HCl (Zofran Odt) 4 mg 1X ONCE PO Last administered on 07/24/17 17:15; Start 07/24/17 at 17:15; Stop 07/24/17 at 17:16; Status DC Acetaminophen (Tylenol) 650 mg 1X ONCE PO Last administered on 07/24/17 17: 14; Start 07/24/17 at 17:15; Stop 07/24/17 at 17:16; Status DC Ondansetron HCl (Zofran Odt) 4 mg STK-MED ONCE .ROUTE ; Start 07/24/17 at 17:12 ; Stop 07/24/17 at 17:13; Status DC Ondansetron HCl (Zofran) 4 mg PRN Q6HRS PRN IV NAUSEA/VOMITING, 1st choice Last administered on 07/29/17 09:21; Start 07/24/17 at 19:00 Prochlorperazine Edisylate (Compazine) 10 mg PRN Q6HRS PRN IV NAUSEA/VOMITING, 2nd choice; Start 07/24/17 at 19:00 Prochlorperazine (Compazine) 25 mg PRN Q12HR PRN [place] NAUSEA/VOMITING; Start at 19:00 Al Hydroxide/Mg Hydroxide (Mylanta Plus Xs) 30 ml PRN Q3HRS PRN PO HEARTBURN / GAS; Start 07/24/17 at 19:00 Calcium Carbonate/ Glycine (Tums) 500 mg PRN Q3HRS PRN PO UPSET STOMACH Last administered on 07/27/17 07:14; Start 07/24/17 at 19:00 Oxycodone HCl (Roxicodone) 5 mg PRN Q3HRS PRN PO BREAKTHROUGH PAIN Last administered on 07/28/17 06:18; Start 07/24/17 at 19:00 Morphine Sulfate 1 mg PRN Q1HR PRN IV PAIN Last administered on 07/27/17 15: 11; Start 07/24/17 at 19:00 Ketorolac Tromethamine (Toradol) 15 mg PRN Q6HRS PRN IV PAIN Last administered on 07/24/17 23:50; Start 07/24/17 at 19:00; Stop 07/29/17 at 18:59 Acetaminophen (Tylenol) 650 mg PRN Q6HRS PRN PO Headaches, Temp > 101.5F Last administered on 07/28/17 21:30; Start 07/24/17 at 19:00 Ibuprofen (Motrin) 400 mg PRN Q6HRS PRN PO MILD PAIN Last administered on 07/29 09:21; Start 07/24/17 at 19:00 Docusate Sodium (Colace) 100 mg BID PO Last administered on 07/29/17 09:11; Start 07/24/17 at 21:00 Magnesium Hydroxide (Milk Of Magnesia) 2,400 mg PRN Q12HR PRN PO CONSTIPATION; Start 07/24/17 at 19:00 Bisacodyl (Dulcolax Supp) 10 mg PRN DAILY PRN [place] CONSTIPATION; Start 07/24/17 at 19:00 Enoxaparin Sodium (Lovenox 40mg Syringe) 40 mg Q24H SQ Last administered on 09:12; Start 07/25/17 at 09:00 Lidocaine (Lidoderm) 1 patch DAILY TD Last administered on 07/29/17 09:12; Start 07/24/17 at 21:00 Atorvastatin Calcium (Lipitor) 40 mg QHS PO Last administered on 07/28/17 21: 24; Start 07/25/17 at 21:00 Clonazepam (KlonoPIN) 1 mg BID PO Last administered on 07/29/17 09:12; Start 07/25/17 at 09:00 Tizanidine HCl (Zanaflex) 4 mg PRN Q8HRS PRN PO MUSCLE SPASMS Last administered on 07/28/17 20:10; Start 07/24/17 at 22:45 Bupropion HCl (Wellbutrin Xl) 300 mg DAILY PO Last administered on 07/29/17 09:11; Start 07/25/17 at 09:00 Lubiprostone (Amitiza) 24 mcg BIDWMEALS PO Last administered on 07/29/17 09: 11; Start 07/25/17 at 08:00 Lurasidone HCl (Latuda) 120 mg DAILYWSUP PO Last administered on 07/28/17 18: 23; Start 07/25/17 at 17:00 Non-Formulary Medication 1 each HS PO ; Start 07/25/17 at 21:00; Status UNV Losartan Potassium (Cozaar) 50 mg DAILY PO Last administered on 07/29/17 09: 12; Start 07/25/17 at 09:00 Influenza Virus Vaccine Quadrival (Fluarix Quad [id number] Syringe) 0.5 ml ONCE ONCE VAX IM Last administered on 07/26/17 11:59; Start 07/26/17 at 10:00; Stop 07/26/17 at 10:01; Status DC Gabapentin (Neurontin) 300 mg BID PO Last administered on 07/29/17 09:11; Start 07/25/17 at 09:00 Gadobutrol (Gadavist) 4.5 mmol 1X ONCE IV Last administered on 07/26/17 11: 13; Start 07/26/17 at 11:00; Stop 07/26/17 at 11:01; Status DC Dexamethasone Sodium Phosphate (Decadron) 4 mg Q6HRS IV Last administered on 06:19; Start 07/26/17 at 18:00; Stop 07/28/17 at 08:59; Status DC Lidocaine/Sodium Bicarbonate (Buffered Lidocaine 1%) 20 ml 1X ONCE IJ Last administered on 07/27/17 13:02; Start 07/27/17 at 11:45; Stop 07/27/17 at 11 :46; Status DC Dexamethasone (Decadron) 2 mg BID PO Last administered on 07/29/17 09:11; Start 07/28/17 at 09:00; Stop 07/29/17 at 09:01; Status DC Active Scripts Active Morphine Sulfate 15 Mg Tablet 1 Tab PO PRN Q6-8HRS PRN Naproxen 375 Mg Tablet 375 Mg PO BID PRN Reported Tizanidine Hcl 4 Mg Tablet 4 Mg PO PRN Q8HRS PRN Amitiza (Lubiprostone) 24 Mcg Capsule 24 Mcg PO BID Stool Softener (Docusate Sodium) 100 Mg Capsule 100 Mg PO DAILY Melatonin 5 Mg Tablet (Melatonin/Pyridoxine Hcl (B6)) 1 Each Tablet 1 Each PO HS Latuda (Lurasidone Hcl) 120 Mg Tablet 120 Mg PO DAILYWSUP Bupropion Xl (Bupropion Hcl) 300 Mg Tab.er.24h 300 Mg PO DAILY Alendronate Sodium 70 Mg Tablet 70 Mg PO WEEKLY Ibuprofen 600 Mg Tablet 600 Mg PO Q6H PRN Hydrocodone-Apap 5-325 (Hydrocodone Bit/Acetaminophen) 1 Each Tablet 1 Tab PO PRN Q6HRS PRN Vitamin D-3 (Cholecalciferol (Vitamin D3)) 2,000 Unit Tablet 5,000 Unit PO WEEKLY Losartan Potassium 100 Mg Tablet 50 Mg PO DAILY Amlodipine Besylate 10 Mg Tablet 10 Mg PO DAILY Atorvastatin Calcium 40 Mg Tablet 40 Mg PO DAILY Hydrochlorothiazide Capsule (Hydrochlorothiazide) 12.5 Mg Capsule 25 Mg PO DAILY Potassium Chloride 20 Meq Tab.er.prt 20 Meq PO DAILY Maxalt (Rizatriptan Benzoate) 10 Mg Tablet 10 Mg PO PRN PRN Clonazepam 1 Mg Tablet 1 Mg PO BID Vitals/I & O Vital Sign - Last 24 Hours 07/28/17 07/28/17 07/28/17 07/28/17 11:00 15:00 19:15 19:40 Temp 98.8 99.0 98.5 98.8 99.0 98.5 Pulse 81 100 97 Resp 18 B/P (MAP) 125/76 (92) 147/87 (107) 140/79 (99) Pulse Ox 92 90 94 O2 Delivery Room Air Room Air Nasal Cannula Room Air O2 Flow Rate 2.0 07/28/17 07/29/17 07/29/17 07/29/17 23:14 03:15 07:00 09:12 Temp 98.0 98.1 98.1 98.0 98.1 98.1 Pulse 79 65 74 74 Resp 18 B/P (MAP) 130/83 (99) 119/90 (100) 139/73 (95) 139/73 Pulse Ox 94 95 93 O2 Delivery Room Air Room Air Room Air CORBY PETERSON MD Jul 29, 2017 10:46
--- NOTE | 2017-07-29 13:04 | PDOC ---
PROGRESS NOTES Chief Complaint Chief Complaint 1. Acute on chronic back pain, worse now after a fall 2. Hx T12 fx in past admits 3. FTT sxs, generalized weakness, worsening 4. HTN, dyslipidemia, schizophrenia - chronic stable 5. Head lac s.p 6-7 sarah at ER - will come off after 7 days per ER MD 6. Tremors, likely essential - consult neuro,. on clonazepam at home, i have continued History of Present Illness History of Present Illness Patient seen on surgical floor. Same in terms of neuropathy and weakness. Patient has 6-7 sarah for scalp laceration, appears to be healing well with no oozing or suppuration at site. Patient is lying comfortably in bed, with no visible tremors at present, although she states they are not improved at this time. Vitals Vitals Vital Signs Date Time Temp Pulse Resp B/P (MAP) Pulse Ox O2 Delivery O2 Flow Rate FiO2 07/29/17 09:12 74 139/73 07/29/17 08:00 Room Air 07/29/17 07:00 98.1 18 93 98.1 07/28/17 19:15 2.0 Physical Exam General: Alert, Oriented X3, Cooperative, No acute distress, Other (visible tremors which seem to be worse with movment) Heart: Regular rate, Normal S1, Normal S2 Lungs: Clear Abdomen: Normal bowel sounds, Soft, No tenderness, No hepatosplenomegaly, No masses Extremities: No clubbing, No cyanosis, No edema, Normal pulses, No tenderness/ swelling Skin: No rashes, No breakdown, Other (OA deformiteis both hands, hand tremor) Labs LABS Laboratory Tests Test 07/29/17 03:50 White Blood Count 5.7 x10^3/uL (4.0-11.0) Red Blood Count 4.03 x10^6/uL (3.50-5.40) Hemoglobin 11.6 g/dL (12.0-15.5) Hematocrit 34.8 % (36.0-47.0) Mean Corpuscular Volume 87 fL (79-100) Mean Corpuscular Hemoglobin 29 pg (25-35) Mean Corpuscular Hemoglobin Concent 33 g/dL (31-37) Red Cell Distribution Width 15.3 % (11.5-14.5) Platelet Count 151 x10^3/uL (140-400) Neutrophils (%) (Auto) 73 % (31-73) Lymphocytes (%) (Auto) 20 % (24-48) Monocytes (%) (Auto) 6 % (0-9) Eosinophils (%) (Auto) 0 % (0-3) Basophils (%) (Auto) 0 % (0-3) Neutrophils # (Auto) 4.2 x10^3uL (1.8-7.7) Lymphocytes # (Auto) 1.2 x10^3/uL (1.0-4.8) Monocytes # (Auto) 0.3 x10^3/uL (0.0-1.1) Eosinophils # (Auto) 0.0 x10^3/uL (0.0-0.7) Basophils # (Auto) 0.0 x10^3/uL (0.0-0.2) Sodium Level 143 mmol/L (136-145) Potassium Level 3.8 mmol/L (3.5-5.1) Chloride Level 105 mmol/L (98-107) Carbon Dioxide Level 35 mmol/L (21-32) Anion Gap 3 (6-14) Blood Urea Nitrogen 17 mg/dL (7-20) Creatinine 0.5 mg/dL (0.6-1.0) Estimated GFR (Cockcroft-Gault) 123.4 Glucose Level 103 mg/dL (70-99) Calcium Level 8.6 mg/dL (8.5-10.1) Review of Systems Review of Systems Patient was seen at bedside. AOCx3 and appears NAD. Has no new c/o at this time. No UE tremor at rest. EOMI b/l. No signs of CN VII palsy. No dysarthria. Assessment and Plan Assessmemt and Plan Problems Medical Problems: (1) Fall Status: Acute (2) Head injury Status: Acute (3) Scalp laceration Status: Acute 1. Acute on chronic back pain, worse now after a fall 2. Hx T12 fx in past admits 3. FTT sxs, generalized weakness, worsening 4. HTN, dyslipidemia, schizophrenia - chronic stable 5. Head lac s.p 6-7 sarah at ER - will come off after 7 days per ER MD 6. Tremors, likely essential - consult neuro,. on clonazepam at home, i have continued Plan: Consult neuro OT/PT Continue home medications Continue wound care Scalp laceration staple removal, 08/03/17 F/U with PCP in one month D/C probable later this afternoon Problems: Comment Review of Relevant I have reviewed the following items brandie (where applicable) has been applied. Labs Laboratory Tests Test 07/27/17 13:00 07/28/17 04:00 07/28/17 09:30 07/29/17 03:50 CSF Tube Number 4 CSF Volume 3.8 CSF Color Colorless CSF Clarity Clear CSF WBC 1 CSF RBC 0 CSF Mononuclear WBCs % 100 % CSF Glucose 88 mg/dL (37-70) CSF Total Protein 60.6 mg/dL (15.0-45.0) White Blood Count 5.1 x10^3/uL (4.0-11.0) 5.7 x10^3/uL (4.0-11.0) Red Blood Count 4.39 x10^6/uL (3.50-5.40) 4.03 x10^6/uL (3.50-5.40) Hemoglobin 12.6 g/dL (12.0-15.5) 11.6 g/dL (12.0-15.5) Hematocrit 37.9 % (36.0-47.0) 34.8 % (36.0-47.0) Mean Corpuscular Volume 86 fL (79-100) 87 fL (79-100) Mean Corpuscular Hemoglobin 29 pg (25-35) 29 pg (25-35) Mean Corpuscular Hemoglobin Concent 33 g/dL (31-37) 33 g/dL (31-37) Red Cell Distribution Width 15.2 % (11.5-14.5) 15.3 % (11.5-14.5) Platelet Count 168 x10^3/uL (140-400) 151 x10^3/uL (140-400) Neutrophils (%) (Auto) 87 % (31-73) 73 % (31-73) Lymphocytes (%) (Auto) 10 % (24-48) 20 % (24-48) Monocytes (%) (Auto) 2 % (0-9) 6 % (0-9) Eosinophils (%) (Auto) 0 % (0-3) 0 % (0-3) Basophils (%) (Auto) 0 % (0-3) 0 % (0-3) Neutrophils # (Auto) 4.5 x10^3uL (1.8-7.7) 4.2 x10^3uL (1.8-7.7) Lymphocytes # (Auto) 0.5 x10^3/uL (1.0-4.8) 1.2 x10^3/uL (1.0-4.8) Monocytes # (Auto) 0.1 x10^3/uL (0.0-1.1) 0.3 x10^3/uL (0.0-1.1) Eosinophils # (Auto) 0.0 x10^3/uL (0.0-0.7) 0.0 x10^3/uL (0.0-0.7) Basophils # (Auto) 0.0 x10^3/uL (0.0-0.2) 0.0 x10^3/uL (0.0-0.2) Sodium Level 141 mmol/L (136-145) 143 mmol/L (136-145) Potassium Level 4.3 mmol/L (3.5-5.1) 3.8 mmol/L (3.5-5.1) Chloride Level 104 mmol/L (98-107) 105 mmol/L (98-107) Carbon Dioxide Level 35 mmol/L (21-32) 35 mmol/L (21-32) Anion Gap 2 (6-14) 3 (6-14) Blood Urea Nitrogen 15 mg/dL (7-20) 17 mg/dL (7-20) Creatinine 0.6 mg/dL (0.6-1.0) 0.5 mg/dL (0.6-1.0) Estimated GFR (Cockcroft-Gault) 100.0 123.4 Glucose Level 131 mg/dL (70-99) 103 mg/dL (70-99) Calcium Level 9.1 mg/dL (8.5-10.1) 8.6 mg/dL (8.5-10.1) Erythrocyte Sedimentation Rate 8 (0-25) Laboratory Tests Test 07/29/17 03:50 White Blood Count 5.7 x10^3/uL (4.0-11.0) Red Blood Count 4.03 x10^6/uL (3.50-5.40) Hemoglobin 11.6 g/dL (12.0-15.5) Hematocrit 34.8 % (36.0-47.0) Mean Corpuscular Volume 87 fL (79-100) Mean Corpuscular Hemoglobin 29 pg (25-35) Mean Corpuscular Hemoglobin Concent 33 g/dL (31-37) Red Cell Distribution Width 15.3 % (11.5-14.5) Platelet Count 151 x10^3/uL (140-400) Neutrophils (%) (Auto) 73 % (31-73) Lymphocytes (%) (Auto) 20 % (24-48) Monocytes (%) (Auto) 6 % (0-9) Eosinophils (%) (Auto) 0 % (0-3) Basophils (%) (Auto) 0 % (0-3) Neutrophils # (Auto) 4.2 x10^3uL (1.8-7.7) Lymphocytes # (Auto) 1.2 x10^3/uL (1.0-4.8) Monocytes # (Auto) 0.3 x10^3/uL (0.0-1.1) Eosinophils # (Auto) 0.0 x10^3/uL (0.0-0.7) Basophils # (Auto) 0.0 x10^3/uL (0.0-0.2) Sodium Level 143 mmol/L (136-145) Potassium Level 3.8 mmol/L (3.5-5.1) Chloride Level 105 mmol/L (98-107) Carbon Dioxide Level 35 mmol/L (21-32) Anion Gap 3 (6-14) Blood Urea Nitrogen 17 mg/dL (7-20) Creatinine 0.5 mg/dL (0.6-1.0) Estimated GFR (Cockcroft-Gault) 123.4 Glucose Level 103 mg/dL (70-99) Calcium Level 8.6 mg/dL (8.5-10.1) Microbiology 07/27/17 Anaerobic/Aerobic Culture - Preliminary, Resulted 07/27/17 Anaerobic Culture Result 1 (TRUNG) - Preliminary, Resulted 07/27/17 Aerobic Culture - Preliminary, Resulted 07/27/17 Aerobic Culture Result 1 (TRUNG) - Preliminary, Resulted Medications Current Medications Diphtheria/ Tetanus/Acell Pertussis (Boostrix) 0.5 ml ONCE ONCE VAX IM ; Start 07/24/17 at 17:00; Stop 07/24/17 at 17:56; Status DC Lidocaine/ Epinephrine (Xylocaine 1%-Epi 1:100,000) 20 ml 1X ONCE IJ Last administered on 07/24/17 17:01; Start 07/24/17 at 17:00; Stop 07/24/17 at 17 :01; Status DC Ondansetron HCl (Zofran Odt) 4 mg 1X ONCE PO Last administered on 07/24/17 17:15; Start 07/24/17 at 17:15; Stop 07/24/17 at 17:16; Status DC Acetaminophen (Tylenol) 650 mg 1X ONCE PO Last administered on 07/24/17 17: 14; Start 07/24/17 at 17:15; Stop 07/24/17 at 17:16; Status DC Ondansetron HCl (Zofran Odt) 4 mg STK-MED ONCE .ROUTE ; Start 07/24/17 at 17:12 ; Stop 07/24/17 at 17:13; Status DC Ondansetron HCl (Zofran) 4 mg PRN Q6HRS PRN IV NAUSEA/VOMITING, 1st choice Last administered on 07/29/17 09:21; Start 07/24/17 at 19:00 Prochlorperazine Edisylate (Compazine) 10 mg PRN Q6HRS PRN IV NAUSEA/VOMITING, 2nd choice; Start 07/24/17 at 19:00 Prochlorperazine (Compazine) 25 mg PRN Q12HR PRN [place] NAUSEA/VOMITING; Start at 19:00 Al Hydroxide/Mg Hydroxide (Mylanta Plus Xs) 30 ml PRN Q3HRS PRN PO HEARTBURN / GAS; Start 07/24/17 at 19:00 Calcium Carbonate/ Glycine (Tums) 500 mg PRN Q3HRS PRN PO UPSET STOMACH Last administered on 07/27/17 07:14; Start 07/24/17 at 19:00 Oxycodone HCl (Roxicodone) 5 mg PRN Q3HRS PRN PO BREAKTHROUGH PAIN Last administered on 07/28/17 06:18; Start 07/24/17 at 19:00 Morphine Sulfate 1 mg PRN Q1HR PRN IV PAIN Last administered on 07/27/17 15: 11; Start 07/24/17 at 19:00 Ketorolac Tromethamine (Toradol) 15 mg PRN Q6HRS PRN IV PAIN Last administered on 07/24/17 23:50; Start 07/24/17 at 19:00; Stop 07/29/17 at 18:59 Acetaminophen (Tylenol) 650 mg PRN Q6HRS PRN PO Headaches, Temp > 101.5F Last administered on 07/28/17 21:30; Start 07/24/17 at 19:00 Ibuprofen (Motrin) 400 mg PRN Q6HRS PRN PO MILD PAIN Last administered on 07/29 09:21; Start 07/24/17 at 19:00 Docusate Sodium (Colace) 100 mg BID PO Last administered on 07/29/17 09:11; Start 07/24/17 at 21:00 Magnesium Hydroxide (Milk Of Magnesia) 2,400 mg PRN Q12HR PRN PO CONSTIPATION; Start 07/24/17 at 19:00 Bisacodyl (Dulcolax Supp) 10 mg PRN DAILY PRN [place] CONSTIPATION; Start 07/24/17 at 19:00 Enoxaparin Sodium (Lovenox 40mg Syringe) 40 mg Q24H SQ Last administered on 09:12; Start 07/25/17 at 09:00 Lidocaine (Lidoderm) 1 patch DAILY TD Last administered on 07/29/17 09:12; Start 07/24/17 at 21:00 Atorvastatin Calcium (Lipitor) 40 mg QHS PO Last administered on 07/28/17 21: 24; Start 07/25/17 at 21:00 Clonazepam (KlonoPIN) 1 mg BID PO Last administered on 07/29/17 09:12; Start 07/25/17 at 09:00 Tizanidine HCl (Zanaflex) 4 mg PRN Q8HRS PRN PO MUSCLE SPASMS Last administered on 07/28/17 20:10; Start 07/24/17 at 22:45 Bupropion HCl (Wellbutrin Xl) 300 mg DAILY PO Last administered on 07/29/17 09:11; Start 07/25/17 at 09:00 Lubiprostone (Amitiza) 24 mcg BIDWMEALS PO Last administered on 07/29/17 09: 11; Start 07/25/17 at 08:00 Lurasidone HCl (Latuda) 120 mg DAILYWSUP PO Last administered on 07/28/17 18: 23; Start 07/25/17 at 17:00 Non-Formulary Medication 1 each HS PO ; Start 07/25/17 at 21:00; Status UNV Losartan Potassium (Cozaar) 50 mg DAILY PO Last administered on 07/29/17 09: 12; Start 07/25/17 at 09:00 Influenza Virus Vaccine Quadrival (Fluarix Quad 1032-2232 Syringe) 0.5 ml ONCE ONCE VAX IM Last administered on 07/26/17 11:59; Start 07/26/17 at 10:00; Stop 07/26/17 at 10:01; Status DC Gabapentin (Neurontin) 300 mg BID PO Last administered on 07/29/17 09:11; Start 07/25/17 at 09:00 Gadobutrol (Gadavist) 4.5 mmol 1X ONCE IV Last administered on 07/26/17 11: 13; Start 07/26/17 at 11:00; Stop 07/26/17 at 11:01; Status DC Dexamethasone Sodium Phosphate (Decadron) 4 mg Q6HRS IV Last administered on 06:19; Start 07/26/17 at 18:00; Stop 07/28/17 at 08:59; Status DC Lidocaine/Sodium Bicarbonate (Buffered Lidocaine 1%) 20 ml 1X ONCE IJ Last administered on 07/27/17 13:02; Start 07/27/17 at 11:45; Stop 07/27/17 at 11 :46; Status DC Dexamethasone (Decadron) 2 mg BID PO Last administered on 07/29/17 09:11; Start 07/28/17 at 09:00; Stop 07/29/17 at 09:01; Status DC Active Scripts Active Morphine Sulfate 15 Mg Tablet 1 Tab PO PRN Q6-8HRS PRN Naproxen 375 Mg Tablet 375 Mg PO BID PRN Reported Tizanidine Hcl 4 Mg Tablet 4 Mg PO PRN Q8HRS PRN Amitiza (Lubiprostone) 24 Mcg Capsule 24 Mcg PO BID Stool Softener (Docusate Sodium) 100 Mg Capsule 100 Mg PO DAILY Melatonin 5 Mg Tablet (Melatonin/Pyridoxine Hcl (B6)) 1 Each Tablet 1 Each PO HS Latuda (Lurasidone Hcl) 120 Mg Tablet 120 Mg PO DAILYWSUP Bupropion Xl (Bupropion Hcl) 300 Mg Tab.er.24h 300 Mg PO DAILY Alendronate Sodium 70 Mg Tablet 70 Mg PO WEEKLY Ibuprofen 600 Mg Tablet 600 Mg PO Q6H PRN Hydrocodone-Apap 5-325 (Hydrocodone Bit/Acetaminophen) 1 Each Tablet 1 Tab PO PRN Q6HRS PRN Vitamin D-3 (Cholecalciferol (Vitamin D3)) 2,000 Unit Tablet 5,000 Unit PO WEEKLY Losartan Potassium 100 Mg Tablet 50 Mg PO DAILY Amlodipine Besylate 10 Mg Tablet 10 Mg PO DAILY Atorvastatin Calcium 40 Mg Tablet 40 Mg PO DAILY Hydrochlorothiazide Capsule (Hydrochlorothiazide) 12.5 Mg Capsule 25 Mg PO DAILY Potassium Chloride 20 Meq Tab.er.prt 20 Meq PO DAILY Maxalt (Rizatriptan Benzoate) 10 Mg Tablet 10 Mg PO PRN PRN Clonazepam 1 Mg Tablet 1 Mg PO BID Vitals/I & O Vital Sign - Last 24 Hours 07/28/17 07/28/17 07/28/17 07/28/17 15:00 19:15 19:40 23:14 Temp 99.0 98.5 98.0 99.0 98.5 98.0 Pulse 100 97 79 Resp 18 18 18 B/P (MAP) 147/87 (107) 140/79 (99) 130/83 (99) Pulse Ox 90 94 94 O2 Delivery Room Air Nasal Cannula Room Air Room Air O2 Flow Rate 2.0 07/29/17 07/29/17 07/29/17 07/29/17 03:15 07:00 08:00 09:12 Temp 98.1 98.1 98.1 98.1 Pulse 65 74 74 Resp 18 18 B/P (MAP) 119/90 (100) 139/73 (95) 139/73 Pulse Ox 95 93 O2 Delivery Room Air Room Air Room Air Intake and Output 07/29/17 07/29/17 07/30/17 15:00 23:00 07:00 Intake Total 400 ml Balance 400 ml BRITNEY SUMMERS III DO Jul 29, 2017 13:04
[2017-07-29 13:22] LABS: ALBUMIN,CSF 33 mg/dL (11-48); CSF IGG INDEX 0.5 (0.0-0.7); IGG,SERUM 660 mg/dL (700-1600)
--- NOTE | 2017-07-30 11:41 | DS ---
DATE OF DISCHARGE: 07/29/2017 ADMISSION DIAGNOSES: Fall with head injury requiring sarah, back pain, tremors, C5-C6 cord compression, hypothyroidism. DISCHARGE DIAGNOSIS: Resolving fall. HOSPITAL COURSE: The patient is a pleasant 66-year-old female who basically fell and suffered a laceration to her head. It was stapled with six sarah. There was some concern of a C5-C6 cord compression as well, but she did well. We admitted her. We did some physical therapy and occupational therapy. The lumbar puncture was negative. We basically discharged to skilled. DISPOSITION: Skilled. ACTIVITY: As tolerated. DIET: Low sodium. MEDICATIONS: Please see the MRAD. TOTAL TIME: 34 minutes. BRITNEY SUMMERS DO DR: CHANCE/ankit JOB#: [id number] / [id number]
[2017-08-19] MEDS ORDERED: LEVO500T59 PO (09:16)
== END 2017-07-29 11:10 | DRG 91 ==
LOC: ER 16:42 → 4 NORTH 18:45
PROVIDERS: ADMIT Internal Medicine; ATTEND Internal Medicine
PROC: 0HQ0XZZ Repair Scalp Skin, External Approach (ICD-10-PCS; 2017-07-24)
PROC: 009U3ZX Drainage of Spinal Canal, Percutaneous Approach, Diagnostic (ICD-10-PCS; principal; 2017-07-27)
DX: G95.20 Unspecified cord compression (principal); G04.91 Myelitis, unspecified; E44.0 Moderate protein-calorie malnutrition; M48.02 Spinal stenosis, cervical region; F20.9 Schizophrenia, unspecified; G62.9 Polyneuropathy, unspecified; Z68.1 Body mass index [BMI] 19.9 or less, adult; Y99.8 Other external cause status; Y92.091 Bathroom in other non-institutional residence as the place of occurrence of the external cause; Y93.89 Activity, other specified; W01.0XXA Fall on same level from slipping, tripping and stumbling without subsequent striking against object, initial encounter; M54.9 Dorsalgia, unspecified; S01.91XA Laceration without foreign body of unspecified part of head, initial encounter; E03.9 Hypothyroidism, unspecified; E04.1 Nontoxic single thyroid nodule; E78.00 Pure hypercholesterolemia, unspecified; E78.5 Hyperlipidemia, unspecified; F31.9 Bipolar disorder, unspecified; F41.0 Panic disorder [episodic paroxysmal anxiety]; G25.0 Essential tremor; G43.909 Migraine, unspecified, not intractable, without status migrainosus; G89.29 Other chronic pain; I10 Essential (primary) hypertension; M81.0 Age-related osteoporosis without current pathological fracture; R62.7 Adult failure to thrive; Y92.002 Bathroom of unspecified non-institutional (private) residence as the place of occurrence of the external cause; Z90.710 Acquired absence of both cervix and uterus; F41.9 Anxiety disorder, unspecified; Z60.2 Problems related to living alone; M62.50 Muscle wasting and atrophy, not elsewhere classified, unspecified site; R26.9 Unspecified abnormalities of gait and mobility; E04.2 Nontoxic multinodular goiter; R25.1 Tremor, unspecified
CPT/HCPCS: 12002; 36415; 62270; 70450; 72080; 72125; 72156; 76536; 80048; 82550; 82607; 82787; 82945; 83735; 83916; 84100; 84157; 84443; 85007; 85025; 85651; 86592; 87071; 87075; 87205; 89051; 90686; A9585; J1100; J1650; J1885; J2270; J2405; J3490; Q0162; 97110; 97116; 97530; 97535; 99285-25

== ENCOUNTER 2017-08-16 10:56 | Inpatient (IN) | payer OTHER ==
[2017-08-16] VITALS (7 sets, daily range): BP systolic 82–100; BP diastolic 54–68
[~2017-08-16] VITALS: Ht 152.4 cm; Wt 49.6 kg
--- NOTE | 2017-08-16 11:42 | EKG ---
[facility] [address] [place] [address] Test Date: 2017-08-16 Test Time: 11:39:16 Pat Name: TAMMI BERRIOS Department: Room: Gender: F Cephalometric Analyst: : 1950 Requested By: RIA GAMBOA Order Number: [id number] Reading MD: Teo Mills MD Measurements Intervals [place] Rate: 88 P: 41 NH: 170 QRS: 22 QRSD: 88 T: 27 QT: 392 QTc: 478 Interpretive Statements SINUS RHYTHM Electronically Signed On 08-16-2017 13:43:09 POCKET MAKER by Teo Mills MD
[2017-08-16 11:50] LABS: BASO % 0 % (0-3); EOS % 0 % (0-3); HEMATOCRIT 39.9 % (36.0-47.0); HEMOGLOBIN 13.2 g/dL (12.0-15.5); LYMPH # 1.4 x10^3/uL (1.0-4.8); LYMPH % 19 % (24-48); MEAN CORPUSCULAR HEMOGLOBIN 29 pg (25-35); MEAN CORPUSCULAR HGB CONC 33 g/dL (31-37); MEAN CORPUSCULAR VOLUME 87 fL (79-100); MONO % 5 % (0-9); NEUT % 75 % (31-73); PLATELET COUNT 179 x10^3/uL (140-400); RED BLOOD COUNT 4.59 x10^6/uL (3.50-5.40); RED CELL DISTRIBUTION WIDTH 15.4 % (11.5-14.5); WHITE BLOOD COUNT 7.4 x10^3/uL (4.0-11.0)
[2017-08-16 11:51] LABS: BLOOD UREA NITROGEN 16 mg/dL (7-20); BUN/CREATININE RATIO 40 (6-20); CALCIUM 8.2 mg/dL (8.5-10.1); CARBON DIOXIDE 39 mmol/L (21-32); CHLORIDE 93 mmol/L (98-107); CREATININE 0.4 mg/dL (0.6-1.0); GFR 159.7; GLUCOSE 105 mg/dL (70-99); POTASSIUM 3.7 mmol/L (3.5-5.1); SODIUM 131 mmol/L (136-145)
[2017-08-16 12:00] LABS: ALBUMIN 3.5 g/dL (3.4-5.0); ALBUMIN/GLOBULIN RATIO 1.2 (1.0-1.7); ALK PHOS 87 U/L (46-116); ALT (SGPT) 30 U/L (14-59); AST (SGOT) 24 U/L (15-37); TOTAL BILIRUBIN 0.6 mg/dL (0.2-1.0); TOTAL PROTEIN 6.5 g/dL (6.4-8.2)
[2017-08-16 12:27] LABS: BILIRUBIN,URINE NEGATIVE (NEG); GLUCOSE,URINE NEGATIVE (NEG); NITRITE,URINE NEGATIVE (NEG); PROTEIN,URINE NEGATIVE (NEG-TRACE)
[2017-08-16 12:32] LABS: BACTERIA,URINE FEW /HPF (0-FEW); RBC,URINE >40 /HPF (0-2)
[2017-08-16 12:33] LABS: BARBITURATES NEG (NEG); BENZODIAZEPINES NEG (NEG); CANNABINOIDS NEG (NEG); COCAINE NEG (NEG); METHADONE NEG (NEG); OPIATES NEG (NEG); PHENCYCLIDINE NEG (NEG)
[2017-08-16] MEDS ORDERED: IOHEXOL 300 MG/ML 75 ML VIAL IV ONE (12:45)
--- NOTE | 2017-08-16 12:57 | RAD ---
Examination: Single frontal view the chest. History: history altered mental status, shortness of breath Comparison: None available. Findings: Low lung volumes and technique accentuates heart size and pulmonary vascularity. Mild elevation of the right hemidiaphragm is identified. There is no acute infiltrate or visualized pneumothorax. Impression: 1. Mild elevation of the right hemidiaphragm. No acute cardiopulmonary findings.
[2017-08-16] MEDS ORDERED: CONTRAST GIVEN MC PRN (13:00)
--- NOTE | 2017-08-16 13:15 | RAD ---
Examination: CT head without contrast History: History of altered mental status. Comparison: 07/24/2017 Technique: Axial CT images of the head was performed without contrast. PQRS Compliance Statement: One or more of the following individualized dose reduction techniques were utilized for this examination: 1. Automated exposure control 2. Adjustment of the mA and/or kV according to patient size 3. Use of iterative reconstruction technique. Findings: There is no evidence of midline shift. There is no acute intracranial bleed or extra axial fluid collection identified. Mild bilateral periventricular white matter hypodensities likely chronic small vessel ischemic disease. The visualized lateral ventricles, third ventricle, fourth ventricle are appropriate for age. The basal cisterns are uneffaced. The visualized paranasal sinuses, mastoid cells are clear. Impression: No acute intracranial findings.
[2017-08-16 13:24] LABS: HCO3 ABG 37 mmol/L (21-28); PO2 ABG 145 mmHg (65-108); SAT O2 ABG 98 % (92-99)
[2017-08-16 13:53] LABS: PCO2 ABG 97 mmHg (35-46)
--- NOTE | 2017-08-16 14:01 | RAD ---
Examination: CT of the abdomen pelvis with IV contrast History: History of abdominal pain. Comparison: 10/31/2016 Technique: Axial CT images of the abdomen pelvis was performed with IV contrast. Coronal and sagittal reformats are performed PQRS Compliance Statement: One or more of the following individualized dose reduction techniques were utilized for this examination: 1. Automated exposure control 2. Adjustment of the mA and/or kV according to patient size 3. Use of iterative reconstruction technique Findings: Moderate bibasal lung consolidation changes identified right greater than left. Mild elevation of the right hemidiaphragm. No evidence of free air identified in the abdomen. The visualized liver, spleen, adrenals grossly appears unremarkable. The gallbladder is moderately distended. The stomach is mildly distended. The visualized pancreas grossly appears unremarkable. The small bowel is nondilated. The visualized appendix grossly appears unremarkable. Moderate to large amount of stool identified throughout the colon with moderate amount of stool identified in the rectum. Vargas catheter balloon identified within the urinary bladder. Bilateral kidneys enhance symmetrically. Minimal prominent appearing left renal pelvis. Tiny 2 mm right renal cyst. Mild sclerotic density identified in the bilateral sacral region Severe compression change of L3 vertebral level with hypoplastic changes. Impression: 1. Moderate to large amount of stool identified throughout the colon and rectum. Correlate for fecal impaction or constipation. 2. Moderately distended gallbladder. 3. Mild sclerotic density identified in the bilateral sacral region likely secondary to insufficiency fractures. Follow-up bone scan can be considered. 3. Moderate bibasal lung consolidation changes with air bronchograms, right greater than left likely pneumonia or atelectasis.
[2017-08-16 14:03] LABS: PROTHROMBIN TIME PATIENT 12.3 SEC (11.7-14.0)
[2017-08-16] MEDS ORDERED: VANCOMYCIN 1.25 GM in IV DEXTROSE 5% 250 ML IV ONE (14:15)
[2017-08-16] MEDS ORDERED: CEFEPIME HCL IV Push 2 GM VIAL. IVP ONE (14:15)
[2017-08-16] MEDS: IV NORMAL SALINE 1000ML BAG 1,000 ML IV SCH ×4 (14:43→20:48)
[2017-08-16] MEDS ORDERED: ONDANSETRON PF 4 MG/2 ML VIAL. IV PRN (14:45)
[2017-08-16] MEDS: VANCOMYCIN PER PHARMACY MC PRN (14:55)
[2017-08-16 15:11] LABS: HCO3 ABG 36 mmol/L (21-28); PH ABG 7.23 (7.35-7.45); PO2 ABG 65 mmHg (65-108); SAT O2 ABG 90 % (92-99)
[2017-08-16] MEDS ORDERED: IV NORMAL SALINE 1000ML BAG 1,000 ML IV ONE (15:15)
[2017-08-16 15:17] LABS: FIO2 ABG 30; PCO2 ABG 87 mmHg (35-46)
[2017-08-16] MEDS ORDERED: TEMA30CA PO (15:36)
[2017-08-16] MEDS ORDERED: GABA-586 PO (15:36)
[2017-08-16] MEDS ORDERED: CALC600T4 PO (15:36)
[2017-08-16] MEDS ORDERED: SENN-79 PO (15:36)
[2017-08-16] MEDS: IPRATRPIUM/ALBUTEROL 0.5/2.5MG 3 ML NEBU. NEB SCH ×4 (16:00→19:43)
[2017-08-16 16:18] LABS: OBC FLU VALID
[2017-08-16] MEDS ORDERED: hydrALAZINE 20 MG/ML VIAL. IVP PRN (16:30)
[2017-08-16] MEDS ORDERED: ACETAMINOPHEN 325 MG TABLET. PO PRN (16:30)
[2017-08-16] MEDS ORDERED: DOCUSATE SODIUM 100 MG CAPSULE. PO PRN (16:30)
[2017-08-16] MEDS ORDERED: ALBUTEROL SULFATE 2.5 MG/3 ML NEBU. NEB PRN (16:30)
[2017-08-16] MEDS ORDERED: traMADol 50 MG TABLET PO PRN (16:30)
[2017-08-16] MEDS ORDERED: MORPHINE SULFATE 2 MG/ML DISP.SYRIN. IV PRN (16:30)
--- NOTE | 2017-08-16 16:37 | PDOC1 ---
History and Physical Date of Admission Date of Admission 08/16/17 Identification/Chief Complaint Chief Complaint AMS Problems: Source Source: Chart review, Patient History of Present Illness History of Present Illness 66 yo F, with h/o HTN, HYPOthyroidism, chronic back pain, neck pain, was sent by EMS for AMS. pt is seen in ICU, with bipap, drowsy, arousable, follow commands, but hard to get a good history. as per ERP and ICU nurse, pt lives alone, felt not good , called EMS. pt admitted sob, but denies cough. in ER, pt was found desat to 70% on RA, ABG showed hypercapnic resp failure, was put on BIpap. BP was also low, improved with IVF. pt was dced last week for back pain to SNF. flu neg abd CT SHOWED CONStipation and bl lung possible PNA. Past Medical History Cardiovascular: HTN, Hyperlipidemia CENTRAL NERVOUS SYSTEM: Migraine Psych: Bipolar, Schizophrenia Endocrine: Osteoporosis Past Surgical History Past Surgical History: Tonsillectomy, Hysterectomy, Other Family History Family History: Hypertension Social History Smoke: No ALCOHOL: none Drugs: None Current Medications Current Medications Current Medications Medications (Trade) Dose Ordered Sig/Saji Start Time Stop Time Status Last Admin Dose Admin Albuterol/ Ipratropium (Duoneb) 3 ml RTQID 08/16/17 16:00 08/17/17 15:59 Cefepime HCl (Maxipime) 2 gm Q8HRS 08/16/17 22:00 Cefepime HCl 2 gm/ Dextrose 100 ml @ 200 mls/hr Q8HRS 08/16/17 22:00 Cancel Info (Do NOT chart on this entry -- for MONITORING) 1 each PRN DAILY PRN 08/16/17 13:00 08/18/17 12:59 Iohexol (Omnipaque 300 Mg/ml) 75 ml 1X ONCE 08/16/17 12:45 08/16/17 12:46 DC Ondansetron HCl (Zofran) 4 mg PRN Q8HRS PRN 08/16/17 14:45 08/17/17 14:44 Sodium Chloride 1,000 ml @ 1,000 mls/hr 1X ONCE 08/16/17 15:15 08/16/17 16:14 DC Vancomycin HCl 1 each 1X ONCE 08/18/17 02:30 08/18/17 02:31 Vancomycin HCl (Vanco Per Pharmacy) 1 each PRN DAILY PRN 08/16/17 14:15 08/16/17 14:55 1 EACH Vancomycin HCl 1.25 gm/Dextrose 250 ml @ 166.667 mls/hr 1X ONCE 08/16/17 14:15 08/16/17 15:44 DC 08/16/17 14:39 166.667 MLS/HR Vancomycin HCl 750 mg/Dextrose 250 ml @ 250 mls/hr Q12H 08/17/17 03:00 Allergies Allergies Allergies Coded Allergies Type Severity Reaction Last Updated Verified No Known Drug Allergies 07/25/17 No ROS Review of System CONSTITUTIONAL: No fever or chills EYES: No recent changes SKIN: No rash or itching CARDIOVASCULAR: No chest pain, syncope, palpitations, or edema RESPIRATORY: No SOB or cough GASTROINTESTINAL: No nausea, vomiting or abdominal pain NEUROLOGICAL: No headaches or weakness ENDOCRINE: No cold or heat intolerance GENITOURINARY: No urgency or frequency of urination MUSCULOSKELETAL: No back pain or joint pain LYMPHATICS: No enlarged lymph nodes PSYCHIATRIC: No anxiety or depression Physical Exam Physical Exam GEN.: No apparent distress. arousable, drowsy, follow commands HEENT: Head is normocephalic, atraumatic NECK: Supple. LUNGS: bl coarse bs HEART: RRR, S1, S2 present. Peripheral pulses intact ABDOMEN: Soft, nontender. Positive bowel sounds. EXTREMITIES: Without any cyanosis. NEUROLOGIC: Normal speech, normal tone PSYCHIATRIC: Normal affect, normal mood. SKIN: No ulcerations Vitals Vitals Vital Signs Date Time Temp Pulse Resp B/P (MAP) Pulse Ox O2 Delivery O2 Flow Rate FiO2 08/16/17 15:53 2.0 08/16/17 15:45 97.1 71 15 96/61 (73) 100 BiPAP/CPAP 97.1 Labs Labs Laboratory Tests Test 08/16/17 11:30 08/16/17 12:16 08/16/17 13:15 08/16/17 15:00 White Blood Count 7.4 x10^3/uL (4.0-11.0) Red Blood Count 4.59 x10^6/uL (3.50-5.40) Hemoglobin 13.2 g/dL (12.0-15.5) Hematocrit 39.9 % (36.0-47.0) Mean Corpuscular Volume 87 fL (79-100) Mean Corpuscular Hemoglobin 29 pg (25-35) Mean Corpuscular Hemoglobin Concent 33 g/dL (31-37) Red Cell Distribution Width 15.4 % (11.5-14.5) Platelet Count 179 x10^3/uL (140-400) Neutrophils (%) (Auto) 75 % (31-73) Lymphocytes (%) (Auto) 19 % (24-48) Monocytes (%) (Auto) 5 % (0-9) Eosinophils (%) (Auto) 0 % (0-3) Basophils (%) (Auto) 0 % (0-3) Neutrophils # (Auto) 5.5 x10^3uL (1.8-7.7) Lymphocytes # (Auto) 1.4 x10^3/uL (1.0-4.8) Monocytes # (Auto) 0.4 x10^3/uL (0.0-1.1) Eosinophils # (Auto) 0.0 x10^3/uL (0.0-0.7) Basophils # (Auto) 0.0 x10^3/uL (0.0-0.2) Prothrombin Time 12.3 SEC (11.7-14.0) Prothromb Time International Ratio 1.0 (0.8-1.1) Activated Partial Thromboplast Time 29 SEC (24-38) Sodium Level 131 mmol/L (136-145) Potassium Level 3.7 mmol/L (3.5-5.1) Chloride Level 93 mmol/L (98-107) Carbon Dioxide Level 39 mmol/L (21-32) Anion Gap (6-14) Blood Urea Nitrogen 16 mg/dL (7-20) Creatinine 0.4 mg/dL (0.6-1.0) Estimated GFR (Cockcroft-Gault) 159.7 BUN/Creatinine Ratio 40 (6-20) Glucose Level 105 mg/dL (70-99) Lactic Acid Level 0.7 mmol/L (0.4-2.0) Calcium Level 8.2 mg/dL (8.5-10.1) Total Bilirubin 0.6 mg/dL (0.2-1.0) Aspartate Amino Transf (AST/SGOT) 24 U/L (15-37) Alanine Aminotransferase (ALT/SGPT) 30 U/L (14-59) Alkaline Phosphatase 87 U/L (46-116) Total Protein 6.5 g/dL (6.4-8.2) Albumin 3.5 g/dL (3.4-5.0) Albumin/Globulin Ratio 1.2 (1.0-1.7) Lipase 80 U/L (73-393) Urine Collection Type U cath Urine Color Yellow Urine Clarity Clear Urine pH 6.0 Urine Specific [place] 1.020 Urine Protein Negative mg/dL (NEG-TRACE) Urine Glucose (UA) Negative mg/dL (NEG) Urine Ketones (Stick) Trace mg/dL (NEG) Urine Blood Moderate (NEG) Urine Nitrite Negative (NEG) Urine Bilirubin Negative (NEG) Urine Urobilinogen Dipstick 1.0 mg/dL (0.2 mg/dL) Urine Leukocyte Esterase Negative (NEG) Urine RBC >40 /HPF (0-2) Urine WBC 1-4 /HPF (0-4) Urine Renal Epithelial Cells Few /LPF Urine Bacteria Few /HPF (0-FEW) Urine Mucus Marked /LPF Urine Opiates Screen Neg (NEG) Urine Methadone Screen Neg (NEG) Urine Barbiturates Neg (NEG) Urine Phencyclidine Screen Neg (NEG) Urine Amphetamine/Methamphetamine Neg (NEG) Urine Benzodiazepines Screen Neg (NEG) Urine Cocaine Screen Neg (NEG) Urine Cannabinoids Screen Neg (NEG) Urine Ethyl Alcohol Neg (NEG) O2 Saturation 98 % (92-99) 90 % (92-99) Arterial Blood pH 7.20 (7.35-7.45) 7.23 (7.35-7.45) Arterial Blood pCO2 at Patient Temp 97 mmHg (35-46) 87 mmHg (35-46) Arterial Blood pO2 at Patient Temp 145 mmHg (65-108) 65 mmHg (65-108) Arterial Blood HCO3 37 mmol/L (21-28) 36 mmol/L (21-28) Arterial Blood Base Excess 6 mmol/L (-3-3) 6 mmol/L (-3-3) FiO2 2 lpm nc 30 Test 08/16/17 15:22 Influenza Type A Antigen Negative (NEGATIVE) Influenza Type B Antigen Negative (NEGATIVE) Laboratory Tests Test 08/16/17 11:30 08/16/17 12:16 08/16/17 13:15 08/16/17 15:00 White Blood Count 7.4 x10^3/uL (4.0-11.0) Red Blood Count 4.59 x10^6/uL (3.50-5.40) Hemoglobin 13.2 g/dL (12.0-15.5) Hematocrit 39.9 % (36.0-47.0) Mean Corpuscular Volume 87 fL (79-100) Mean Corpuscular Hemoglobin 29 pg (25-35) Mean Corpuscular Hemoglobin Concent 33 g/dL (31-37) Red Cell Distribution Width 15.4 % (11.5-14.5) Platelet Count 179 x10^3/uL (140-400) Neutrophils (%) (Auto) 75 % (31-73) Lymphocytes (%) (Auto) 19 % (24-48) Monocytes (%) (Auto) 5 % (0-9) Eosinophils (%) (Auto) 0 % (0-3) Basophils (%) (Auto) 0 % (0-3) Neutrophils # (Auto) 5.5 x10^3uL (1.8-7.7) Lymphocytes # (Auto) 1.4 x10^3/uL (1.0-4.8) Monocytes # (Auto) 0.4 x10^3/uL (0.0-1.1) Eosinophils # (Auto) 0.0 x10^3/uL (0.0-0.7) Basophils # (Auto) 0.0 x10^3/uL (0.0-0.2) Prothrombin Time 12.3 SEC (11.7-14.0) Prothromb Time International Ratio 1.0 (0.8-1.1) Activated Partial Thromboplast Time 29 SEC (24-38) Sodium Level 131 mmol/L (136-145) Potassium Level 3.7 mmol/L (3.5-5.1) Chloride Level 93 mmol/L (98-107) Carbon Dioxide Level 39 mmol/L (21-32) Anion Gap (6-14) Blood Urea Nitrogen 16 mg/dL (7-20) Creatinine 0.4 mg/dL (0.6-1.0) Estimated GFR (Cockcroft-Gault) 159.7 BUN/Creatinine Ratio 40 (6-20) Glucose Level 105 mg/dL (70-99) Lactic Acid Level 0.7 mmol/L (0.4-2.0) Calcium Level 8.2 mg/dL (8.5-10.1) Total Bilirubin 0.6 mg/dL (0.2-1.0) Aspartate Amino Transf (AST/SGOT) 24 U/L (15-37) Alanine Aminotransferase (ALT/SGPT) 30 U/L (14-59) Alkaline Phosphatase 87 U/L (46-116) Total Protein 6.5 g/dL (6.4-8.2) Albumin 3.5 g/dL (3.4-5.0) Albumin/Globulin Ratio 1.2 (1.0-1.7) Lipase 80 U/L (73-393) Urine Collection Type U cath Urine Color Yellow Urine Clarity Clear Urine pH 6.0 Urine Specific [place] 1.020 Urine Protein Negative mg/dL (NEG-TRACE) Urine Glucose (UA) Negative mg/dL (NEG) Urine Ketones (Stick) Trace mg/dL (NEG) Urine Blood Moderate (NEG) Urine Nitrite Negative (NEG) Urine Bilirubin Negative (NEG) Urine Urobilinogen Dipstick 1.0 mg/dL (0.2 mg/dL) Urine Leukocyte Esterase Negative (NEG) Urine RBC >40 /HPF (0-2) Urine WBC 1-4 /HPF (0-4) Urine Renal Epithelial Cells Few /LPF Urine Bacteria Few /HPF (0-FEW) Urine Mucus Marked /LPF Urine Opiates Screen Neg (NEG) Urine Methadone Screen Neg (NEG) Urine Barbiturates Neg (NEG) Urine Phencyclidine Screen Neg (NEG) Urine Amphetamine/Methamphetamine Neg (NEG) Urine Benzodiazepines Screen Neg (NEG) Urine Cocaine Screen Neg (NEG) Urine Cannabinoids Screen Neg (NEG) Urine Ethyl Alcohol Neg (NEG) O2 Saturation 98 % (92-99) 90 % (92-99) Arterial Blood pH 7.20 (7.35-7.45) 7.23 (7.35-7.45) Arterial Blood pCO2 at Patient Temp 97 mmHg (35-46) 87 mmHg (35-46) Arterial Blood pO2 at Patient Temp 145 mmHg (65-108) 65 mmHg (65-108) Arterial Blood HCO3 37 mmol/L (21-28) 36 mmol/L (21-28) Arterial Blood Base Excess 6 mmol/L (-3-3) 6 mmol/L (-3-3) FiO2 2 lpm nc 30 Test 08/16/17 15:22 Influenza Type A Antigen Negative (NEGATIVE) Influenza Type B Antigen Negative (NEGATIVE) VTE Prophylaxis Ordered VTE Prophylaxis Devices: Yes VTE Pharmacological Prophylaxi: Yes Assessment/Plan Assessment/Plan AMS, metabolic encephalopathy acute hypoxic and hypercapnic resp failure possible HAP hyponatremia, 2/2 low po intake? sepsis chronic back pain HTN , NOW hypotension hld schizophrenia BIPolar PLAN: fu with pulm ICU care, monitor MAP, keep >65 keep urine output monitor hold most home sedative and pain meds hold HTN meds ivf, use pressors if needed on vanco, cefepime, cont for now, fu bcx, check legi, strep urine Ag duoneb, cough meds if needed NPO for now, till wake up on bipap, repeat ABG later dvt, gi ppx PTOT tmr if wake up better labs tmr critical care 40min MAYE YEUNG MD Aug 16, 2017 16:37
--- NOTE | 2017-08-16 16:40 | ED.ADGEN ---
Past Medical History Past Medical History: Anxiety, Bipolar, Depression, High Cholesterol, Hypertension, Schizophrenia, Other Additional Past Medical Histor: CHRONIC PAIN,PENTIC,FUCH'S DYSTROPHY, OSTEOPOROSIS Past Surgical History: Hysterectomy, Tonsillectomy Additional Past Surgical Histo: bladder tuck surgery, breast reduction, back sx , Alcohol Use: None Drug Use: None Adult General Chief Complaint Chief Complaint: BACK PAIN - NO INJURY HPI HPI Patient is a 66 year old woman, history of hypertension, hyperlipidemia, schizophrenia, chronic back pain, who presents emergency department via EMS with report of worsening lower back pain over the past several days. Patient states that she has been experiencing worsening of her chronic low back pain, states she was taking her pain medications as directed without relief. EMS states the patient was noted be hypoxic upon arrival, saturation in the 70s, patient was placed on supplemental oxygen for transportation, upon arousing emergency department oxygen saturation is in the upper 90s on nasal cannula. Patient was taken off oxygen transiently, and did no desaturations down into the 70s. Patient states she does have some shortness of breath, denies any cough or chest pain, patient is responding appropriately to questions, but is slow to respond. No mydriasis, patient is awake, no evidence of opioid overdose , denies any focal weakness, numbness or tingling. Patient is complaining as stated of lower back pain that radiates around her abdomen on the right-hand side, states he has had some constipation, no urinary complaints, no sick contacts or exposures, no swelling extremities, no rashes, denies any injuries states that she fell back in December. She is a limited historian. Review of Systems Review of Systems Constitutional: Denies fever or chills. [] Eyes: Denies change in visual acuity. [] HENT: Denies nasal congestion or sore throat. [] Respiratory: Denies cough or shortness of breath. [] Cardiovascular: Denies chest pain or edema. [] GI: Denies nausea, vomiting, bloody stools or diarrhea. Patient complaining of right-sided lower back pain with some radiation of abdomen. : Denies dysuria. [] Musculoskeletal: Denies back pain or joint pain. [] Integument: Denies rash. [] Neurologic: Denies headache, focal weakness or sensory changes. [] Endocrine: Denies polyuria or polydipsia. [] Lymphatic: Denies swollen glands. [] Psychiatric: Denies depression or anxiety. [] Current Medications Current Medications Current Medications Medications (Trade) Dose Ordered Sig/Saji Start Time Stop Time Status Last Admin Dose Admin Cefepime HCl (Maxipime) 2 gm 1X ONCE 08/16/17 14:15 08/16/17 14:16 DC 08/16/17 14:32 2 GM Info (Do NOT chart on this entry -- for MONITORING) 1 each PRN DAILY PRN 08/16/17 13:00 08/18/17 12:59 Iohexol (Omnipaque 300 Mg/ml) 75 ml 1X ONCE 08/16/17 12:45 08/16/17 12:46 DC Ondansetron HCl (Zofran) 4 mg PRN Q8HRS PRN 08/16/17 14:45 08/17/17 14:44 Sodium Chloride 1,000 ml @ 125 mls/hr Q8H 08/16/17 14:38 08/17/17 14:37 Vancomycin HCl (Vanco Per Pharmacy) 1 each PRN DAILY PRN 08/16/17 14:15 08/16/17 14:55 1 EACH Vancomycin HCl 1.25 gm/Dextrose 250 ml @ 166.667 mls/hr 1X ONCE 08/16/17 14:15 08/16/17 15:44 DC 08/16/17 14:39 166.667 MLS/HR Allergies Allergies Allergies Coded Allergies Type Severity Reaction Last Updated Verified No Known Drug Allergies 07/25/17 No Physical Exam Physical Exam Constitutional: Well developed, well nourished, no acute distress, non-toxic appearance. [] HENT: Normocephalic, atraumatic, bilateral external ears normal, oropharynx moist, no oral exudates, nose normal. [] Eyes: PERRLA, EOMI, conjunctiva normal, no discharge. [] Neck: Normal range of motion, no tenderness, supple, no stridor. [] Cardiovascular:Heart rate regular rhythm, no murmur, S1, S2, no rubs or gallops. [] Lungs & Thorax: Patient with poor air movement, mild coarse breath sounds noted at bases bilaterally, patient with significant scoliosis.[] Abdomen: Bowel sounds normal, soft, no rebound, rigidity, no guarding, no tenderness, no masses, no pulsatile masses. [] Skin: Warm, dry, no erythema, no rash. [] Back: No tenderness, significant scoliosis, complaining of tenderness throughout her entire back, no step-offs or deformities appreciated, no lesions or evidence of injury, no CVA tenderness. [] Extremities: No tenderness, no cyanosis, no clubbing, ROM intact, no edema. [] Neurologic: Alert and oriented X 3, is slow to respond, normal pupillary reflexes, with 3 mm pupils bilaterally, normal motor function, normal sensory function, no focal deficits noted. [] Psychologic: Affect normal, judgement normal, mood normal. [] Current Patient Data Vital Signs Vital Signs Date Time Temp Pulse Resp B/P (MAP) Pulse Ox O2 Delivery O2 Flow Rate FiO2 08/16/17 14:35 70 83/50 (61) 95 BiPAP/CPAP 08/16/17 11:00 98.1 16 2.0 98.1 Lab Values Laboratory Tests Test 08/16/17 11:30 08/16/17 12:16 08/16/17 13:15 White Blood Count 7.4 x10^3/uL (4.0-11.0) Red Blood Count 4.59 x10^6/uL (3.50-5.40) Hemoglobin 13.2 g/dL (12.0-15.5) Hematocrit 39.9 % (36.0-47.0) Mean Corpuscular Volume 87 fL (79-100) Mean Corpuscular Hemoglobin 29 pg (25-35) Mean Corpuscular Hemoglobin Concent 33 g/dL (31-37) Red Cell Distribution Width 15.4 % (11.5-14.5) H Platelet Count 179 x10^3/uL (140-400) Neutrophils (%) (Auto) 75 % (31-73) H Lymphocytes (%) (Auto) 19 % (24-48) L Monocytes (%) (Auto) 5 % (0-9) Eosinophils (%) (Auto) 0 % (0-3) Basophils (%) (Auto) 0 % (0-3) Neutrophils # (Auto) 5.5 x10^3uL (1.8-7.7) Lymphocytes # (Auto) 1.4 x10^3/uL (1.0-4.8) Monocytes # (Auto) 0.4 x10^3/uL (0.0-1.1) Eosinophils # (Auto) 0.0 x10^3/uL (0.0-0.7) Basophils # (Auto) 0.0 x10^3/uL (0.0-0.2) Prothrombin Time 12.3 SEC (11.7-14.0) Prothrombin Time INR 1.0 (0.8-1.1) PTT 29 SEC (24-38) Sodium Level 131 mmol/L (136-145) L Potassium Level 3.7 mmol/L (3.5-5.1) Chloride Level 93 mmol/L (98-107) L Carbon Dioxide Level 39 mmol/L (21-32) H Anion Gap (6-14) Blood Urea Nitrogen 16 mg/dL (7-20) Creatinine 0.4 mg/dL (0.6-1.0) L Estimated GFR (Cockcroft-Gault) 159.7 BUN/Creatinine Ratio 40 (6-20) H Glucose Level 105 mg/dL (70-99) H Lactic Acid Level 0.7 mmol/L (0.4-2.0) Calcium Level 8.2 mg/dL (8.5-10.1) L Total Bilirubin 0.6 mg/dL (0.2-1.0) Aspartate Amino Transferase (AST) 24 U/L (15-37) Alanine Aminotransferase (ALT) 30 U/L (14-59) Alkaline Phosphatase 87 U/L (46-116) Total Protein 6.5 g/dL (6.4-8.2) Albumin 3.5 g/dL (3.4-5.0) Albumin/Globulin Ratio 1.2 (1.0-1.7) Lipase 80 U/L (73-393) Urine Collection Type U cath Urine Color Yellow Urine Clarity Clear Urine pH 6.0 Urine Specific [place] 1.020 Urine Protein Negative mg/dL (NEG-TRACE) Urine Glucose (UA) Negative mg/dL (NEG) Urine Ketones (Stick) Trace mg/dL (NEG) Urine Blood Moderate (NEG) Urine Nitrite Negative (NEG) Urine Bilirubin Negative (NEG) Urine Urobilinogen Dipstick 1.0 mg/dL (0.2 mg/dL) Urine Leukocyte Esterase Negative (NEG) Urine RBC >40 /HPF (0-2) Urine WBC 1-4 /HPF (0-4) Urine Renal Epithelial Cells Few /LPF Urine Bacteria Few /HPF (0-FEW) Urine Mucus Marked /LPF Urine Opiates Screen Neg (NEG) Urine Methadone Screen Neg (NEG) Urine Barbiturates Neg (NEG) Urine Phencyclidine Screen Neg (NEG) Urine Amphetamine/Methamphetamine Neg (NEG) Urine Benzodiazepines Screen Neg (NEG) Urine Cocaine Screen Neg (NEG) Urine Cannabinoids Screen Neg (NEG) Urine Ethyl Alcohol Neg (NEG) O2 Saturation 98 % (92-99) Arterial Blood pH 7.20 (7.35-7.45) *L Arterial Blood pCO2 at Patient Temp 97 mmHg (35-46) *H Arterial Blood pO2 at Patient Temp 145 mmHg (65-108) H Arterial Blood HCO3 37 mmol/L (21-28) H Arterial Blood Base Excess 6 mmol/L (-3-3) H FiO2 2 lpm nc Laboratory Tests 08/16/17 11:30 Laboratory Tests 08/16/17 11:30 EKG EKG 1139: Sinus rhythm, heart rate 80 beats/minute, upright axis, QTC of 478, QRS of 88, MN 170, contour abnormality is noted in the anterior septal leads, with mild baseline artifact, abnormal ECG, does not meet STEMI criteria. As interpreted by me. Radiology/Procedures Radiology/Procedures [][facility] [address] [place] [address] IMAGING REPORT Signed PATIENT: TAMMI BERRIOS ACCOUNT: [id number] : 1950 LOCATION: ER AGE: 66 SEX: F EXAM STATUS: REG ER ORD. PHYSICIAN: RIA GAMBOA DO REASON: ABDOMINAL PAIN. PROCEDURE: CT ABD PELV W/ IV CONTRST ONLY Examination: CT of the abdomen pelvis with IV contrast History: History of abdominal pain. Comparison: 10/31/2016 Technique: Axial CT images of the abdomen pelvis was performed with IV contrast. Coronal and sagittal reformats are performed PQRS Compliance Statement: One or more of the following individualized dose reduction techniques were utilized for this examination: 1. Automated exposure control 2. Adjustment of the mA and/or kV according to patient size 3. Use of iterative reconstruction technique Findings: Moderate bibasal lung consolidation changes identified right greater than left. Mild elevation of the right hemidiaphragm. No evidence of free air identified in the abdomen. The visualized liver, spleen, adrenals grossly appears unremarkable. The gallbladder is moderately distended. The stomach is mildly distended. The visualized pancreas grossly appears unremarkable. The small bowel is nondilated. The visualized appendix grossly appears unremarkable. Moderate to large amount of stool identified throughout the colon with moderate amount of stool identified in the rectum. Vargas catheter balloon identified within the urinary bladder. Bilateral kidneys enhance symmetrically. Minimal prominent appearing left renal pelvis. Tiny 2 mm right renal cyst. Mild sclerotic density identified in the bilateral sacral region Severe compression change of L3 vertebral level with hypoplastic changes. Impression: 1. Moderate to large amount of stool identified throughout the colon and rectum. Correlate for fecal impaction or constipation. 2. Moderately distended gallbladder. 3. Mild sclerotic density identified in the bilateral sacral region likely secondary to insufficiency fractures. Follow-up bone scan can be considered. 3. Moderate bibasal lung consolidation changes with air bronchograms, right greater than left likely pneumonia or atelectasis. DICTATED and SIGNED BY: ABHINAV RUIZ MD DATE: 08/16/171345 CC: RIA GAMBOA DO; FEDERICA SAENZ MD ~ Impressions: [facility] [address] [place] [address] IMAGING REPORT Signed PATIENT: TAMMI BERRIOS ACCOUNT: [id number] : 1950 LOCATION: ER AGE: 66 SEX: F EXAM STATUS: REG ER ORD. PHYSICIAN: RIA GAMBOA DO REASON: AMS PROCEDURE: CT HEAD WO CONTRAST Examination: CT head without contrast History: History of altered mental status. Comparison: 07/24/2017 Technique: Axial CT images of the head was performed without contrast. PQRS Compliance Statement: One or more of the following individualized dose reduction techniques were utilized for this examination: 1. Automated exposure control 2. Adjustment of the mA and/or kV according to patient size 3. Use of iterative reconstruction technique. Findings: There is no evidence of midline shift. There is no acute intracranial bleed or extra axial fluid collection identified. Mild bilateral periventricular white matter hypodensities likely chronic small vessel ischemic disease. The visualized lateral ventricles, third ventricle, fourth ventricle are appropriate for age. The basal cisterns are uneffaced. The visualized paranasal sinuses, mastoid cells are clear. Impression: No acute intracranial findings. DICTATED and SIGNED BY: ABHINAV RUIZ MD DATE: 08/16/17 1308 CC: RIA GAMBOA DO; FEDERICA SAENZ MD ~ [facility] [address] [place], [place] [id number] IMAGING REPORT Signed PATIENT: TAMMI BERRIOS ACCOUNT: [id number] : 1950 LOCATION: ER AGE: 66 SEX: F EXAM STATUS: REG ER ORD. PHYSICIAN: RIA GAMBOA DO REASON: SOB PROCEDURE: CHEST AP ONLY Examination: Single frontal view the chest. History: history altered mental status, shortness of breath Comparison: None available. Findings: Low lung volumes and technique accentuates heart size and pulmonary vascularity. Mild elevation of the right hemidiaphragm is identified. There is no acute infiltrate or visualized pneumothorax. Impression: 1. Mild elevation of the right hemidiaphragm. No acute cardiopulmonary findings. DICTATED and SIGNED BY: ABHINAV RUIZ MD DATE: 08/16/17 1251 CC: RIA GAMBOA DO; FEDERICA SAENZ MD ~ Course & Med Decision Making Course & Med Decision Making Pertinent Labs and Imaging studies reviewed. (See chart for details) Patient appropriate in response is slow to respond, did considered administering Narcan, however patient has no overt signs of opiate overdose at this time, no pinpoint pupils, and is not experiencing evidence of respiratory depression, I did order ABG, along with head CT, and abdomen and pelvis CT, chest x-ray, due to patient's constellation of symptoms and unclear etiology. CT of head was unremarkable, chest revealed elevated hemidiaphragm, did have concerns that possibly be atelectasis versus infiltrate in the right side, abdominal CT revealed evidence of constipation, with concern again for atelectasis versus pneumonia. ABG revealed hypercapnic respiratory failure, with a pH of 7.2, CO2 of 97, O2 of 145, bicarbonate 37, base excess of 6. Patient was initiated on BiPAP without issue in the ED. Did initiate the patient on cefepime and vancomycin due to concern for pneumonia, patient noted to have lower blood pressures hypotension dropping down into the 70s over 50s after initiation of BiPAP, patient is a very small body habitus, I do believe this is consistent with patient's increased intrathoracic pressure, heart rate remains in the 70s, sepsis based fluid bolus and additional liter initiated in the ED. Laboratory studies reveal the patient is negative for opiates. Mild hyponatremia also noted. Repeat ABG obtained about 40 minutes after initiation of hepatic, patient's current BiPAP settings are 24/8, 30% FiO2, with a rate of 24, patient's tidal volumes are around 400 range, patient's ABG reveals a pH of 7.2, PCO2 87, CO2 65, bicarbonate of 35, base excess of 5. I did discuss findings as above, including patient's blood pressure, current vent ventilatory settings, mentation, laboratory findings, x-ray findings, presentation, with Dr. Tong of pulmonary medical care. At this time he recommends continuing the patient at her current 24/8 with a rate of 24, and dropping FiO2 25%. Records continuing antibiotics and fluids as stated, patient does have good IV access. Does not advocate for obtaining a CT of the chest at this time, as negative as believe this would change management director currently. He recommends obtaining a repeat ABG at 5 PM. Patient's mentation is improving, at time of transport to the ICU, recommendations and orders from Dr. Tong related to Benson of respiratory therapy. Dragon Disclaimer Dragon Disclaimer This electronic medical record was generated, in whole or in part, using a voice recognition dictation system. Departure Impression: Primary Impression: Pneumonia Additional Impressions: Respiratory failure Altered mental status Respiratory failure with hypoxia and hypercapnia Disposition: ADMITTED INPATIENT Admitting Physician: Norah Reardon Condition: IMPROVED Critical Care Time Critical care time was 30 minutes exclusive of procedures. Problem Qualifiers RIA GAMBOA DO Aug 16, 2017 16:40
[2017-08-16] MEDS ORDERED: DOCUSATE SODIUM 100 MG CAPSULE. PO SCH (17:00)
[2017-08-16] MEDS: LURASIDONE 40 MG TABLET. PO SCH (17:00)
[2017-08-16] MEDS: LUBIPROSTONE 8 MCG CAPSULE PO SCH (17:00)
[2017-08-16 17:16] LABS: HCO3 ABG 32 mmol/L (21-28); PH ABG 7.22 (7.35-7.45); PO2 ABG 61 mmHg (65-108); SAT O2 ABG 88 % (92-99)
[2017-08-16 17:18] LABS: FIO2 ABG 25; PCO2 ABG 80 mmHg (35-46)
[2017-08-16] MEDS ORDERED: SODIUM BICARB ADULT 8.4% 50 MEQ/50 ML DISP.SYRIN. IV ONE (17:30)
[2017-08-16] MEDS: ENOXAPARIN 40 MG/0.4 ML SYRINGE. SQ SCH (17:38)
[2017-08-16] MEDS: ATORVASTATIN CALCIUM 40 MG TABLET. PO SCH (20:48)
[2017-08-16] MEDS: FAMOTIDINE 20 MG/2 ML VIAL IVP SCH (20:48)
[2017-08-16] MEDS ORDERED: PYRIDOXINE HCL PO SCH (21:00)
[2017-08-16] MEDS ORDERED: MELATONIN PO SCH (21:00)
[2017-08-16] MEDS: CEFEPIME HCL IV Push 2 GM VIAL. IVP SCH (21:57)
[2017-08-16] MEDS ORDERED: CEFEPIME HCL 2 GM in IV DEXTROSE 5% 100 ML IV SCH (22:00)
[2017-08-16] MEDS ORDERED: NOREPINEPHRIN PREMIX 250 ML IV ONE (23:03)
[2017-08-17] VITALS (25 sets, daily range): BP systolic 71–178; BP diastolic 50–83
[2017-08-17] MEDS ORDERED: NOREPINEPHRIN PREMIX 250 ML IV PRN (01:15)
[2017-08-17] MEDS: VANCOMYCIN 750 MG in IV DEXTROSE 5% 250 ML IV SCH ×2 (03:22→15:27)
[2017-08-17 04:11] LABS: BASO % 1 % (0-3); EOS % 1 % (0-3); HEMATOCRIT 34.4 % (36.0-47.0); HEMOGLOBIN 11.4 g/dL (12.0-15.5); LYMPH # 1.5 x10^3/uL (1.0-4.8); LYMPH % 25 % (24-48); MEAN CORPUSCULAR HEMOGLOBIN 29 pg (25-35); MEAN CORPUSCULAR HGB CONC 33 g/dL (31-37); MEAN CORPUSCULAR VOLUME 88 fL (79-100); MONO % 7 % (0-9); NEUT % 67 % (31-73); PLATELET COUNT 158 x10^3/uL (140-400); RED CELL DISTRIBUTION WIDTH 15.6 % (11.5-14.5); WHITE BLOOD COUNT 6.3 x10^3/uL (4.0-11.0)
[2017-08-17 04:20] LABS: CALCIUM 7.7 mg/dL (8.5-10.1); CREATININE 0.4 mg/dL (0.6-1.0); GFR 159.7; POTASSIUM 3.4 mmol/L (3.5-5.1)
[2017-08-17] MEDS: IV NORMAL SALINE 1000ML BAG 1,000 ML IV SCH (05:03)
[2017-08-17] MEDS: CEFEPIME HCL IV Push 2 GM VIAL. IVP SCH ×3 (05:03→23:08)
[2017-08-17] MEDS: IPRATRPIUM/ALBUTEROL 0.5/2.5MG 3 ML NEBU. NEB SCH ×7 (07:19→20:09)
[2017-08-17 08:16] LABS: HCO3 ABG 28 mmol/L (21-28); PCO2 ABG 42 mmHg (35-46); PH ABG 7.44 (7.35-7.45); PO2 ABG 92 mmHg (65-108); SAT O2 ABG 97 % (92-99)
[2017-08-17 08:24] LABS: FIO2 ABG 25
[2017-08-17] MEDS: buPROPion XL 150 MG TAB.ER.24H. PO SCH (09:08)
[2017-08-17] MEDS: CHOLECALCIFEROL (VITAMIN D3) 5,000 UNIT CAPSULE PO SCH (09:08)
[2017-08-17] MEDS: LUBIPROSTONE 8 MCG CAPSULE PO SCH ×2 (09:08→18:12)
[2017-08-17] MEDS ORDERED: tiZANidine 4 MG TABLET. PO PRN (11:30)
[2017-08-17] MEDS ORDERED: HYDROcodone/APAP 5/325MG 1 TAB TABLET PO PRN (11:30)
[2017-08-17] MEDS ORDERED: NAPROXEN 375 MG PO PRN (11:30)
[2017-08-17] MEDS ORDERED: SUMAtriptan SUCCINATE 100 MG TABLET PO PRN (11:45)
--- NOTE | 2017-08-17 12:10 | PDOC2 ---
CARDIAC CONSULT DATE OF CONSULT Date of Consult DATE: 08/17/17 TIME: 11:47 REASON FOR CONSULT Reason for Consult: Elevated troponin REFERRING PHYSICIAN Referring Physician: Alexys SOURCE Source: Chart review HISTORY OF PRESENT ILLNESS HISTORY OF PRESENT ILLNESS This is a 66 yo female admitted for complains of back pain. This back pain is chronic and has been noted with vertebral compression fracture. She was also initially noted with hypoxia and significant elevated CO2 upon ABG. She was then placed on a bipap. Additional symptoms include SOA, no CP, nausea. She does take significant amount of analgesics and antianxiety medications including benzodiazepines. Presently sitting up and responded well with bipap and now on NC. Based on review no narcan was given. She does not smoke tobacco and no hx of COPD. PAST MEDICAL HISTORY Cardiovascular: HTN, Hyperlipidemia CENTRAL NERVOUS SYSTEM: Migraine Heme/Onc: No pertinent hx Hepatobiliary: No pertinent hx Psych: Anxiety, Bipolar Musculoskeletal: low back pain, Osteoarthritis, Other (chronic pain syndrome, compression fractures) Infectious disease: No pertinent hx ENT: No pertinent hx Renal/: No pertinent hx Endocrine: No pertinent hx, Osteoporosis Dermatology: No pertinent hx PAST SURGICAL HISTORY Past Surgical History: Tonsillectomy, Hysterectomy, Other (kyphoplasty) FAMILY HISTORY Family History: Hypertension SOCIAL HISTORY Smoke: No ALCOHOL: none Drugs: None Lives: Alone CURRENT MEDICATIONS CURRENT MEDICATIONS Current Medications Medications (Trade) Dose Ordered Sig/Saji Route PRN Reason Start Time Stop Time Status Last Admin Dose Admin Vancomycin HCl (Vanco Per Pharmacy) 1 each PRN DAILY PRN MC SEE COMMENTS 08/16/17 14:15 08/16/17 14:55 Cefepime HCl (Maxipime) 2 gm 1X ONCE IVP 08/16/17 14:15 08/16/17 14:16 DC 08/16/17 14:32 Vancomycin HCl 1.25 gm/Dextrose 250 ml @ 166.667 mls/hr 1X ONCE IV 08/16/17 14:15 08/16/17 15:44 DC 08/16/17 14:39 Sodium Chloride 1,000 ml @ 1,380 mls/hr Q44M IV 08/16/17 14:34 08/16/17 15:34 DC 08/16/17 16:16 Sodium Chloride 1,000 ml @ 125 mls/hr Q8H IV 08/16/17 14:38 08/17/17 14:37 08/17/17 05:03 Cefepime HCl (Maxipime) 2 gm Q8HRS IVP 08/16/17 22:00 08/17/17 05:03 Vancomycin HCl 750 mg/Dextrose 250 ml @ 250 mls/hr Q12H IV 08/17/17 03:00 08/17/17 03:22 Atorvastatin Calcium (Lipitor) 40 mg QHS PO 08/16/17 21:00 08/16/17 20:48 Bupropion HCl (Wellbutrin Xl) 300 mg DAILY PO 08/17/17 09:00 08/17/17 09:08 Vitamin D (Vitamin D3) 5,000 unit WEEKLY PO 08/17/17 09:00 08/17/17 09:08 Lubiprostone (Amitiza) 24 mcg BIDWMEALS PO 08/16/17 17:00 08/17/17 09:08 Albuterol/ Ipratropium (Duoneb) 3 ml RTQID NEB 08/16/17 17:00 08/16/17 19:43 Guaifenesin (Mucinex) 600 mg BID PO 08/16/17 21:00 08/17/17 09:09 Enoxaparin Sodium (Lovenox 40mg Syringe) 40 mg Q24H SQ 08/16/17 17:00 08/16/17 17:38 Famotidine (Pepcid) 20 mg QHS IVP 08/16/17 21:00 08/16/17 20:48 Sodium Bicarbonate 50 meq 1X ONCE IV 08/16/17 17:30 08/16/17 17:38 DC 08/16/17 17:42 Norepinephrine Bitartrate 250 ml @ 0 mls/hr CONT PRN IV SEE I/O RECORD 08/17/17 01:15 08/17/17 02:05 ALLERGIES ALLERGIES: Coded Allergies: No Known Drug Allergies (Unverified , 07/25/17) ROS Review of System 14 point ROS evaluated with pertinent positives noted per HPI PHYSICAL EXAM General: Alert, Oriented X3, Cooperative, No acute distress HEENT: Atraumatic, Mucous membr. moist/pink Lungs: Normal air movement, Other (faint basilar crackles) Heart: Regular rate (SR), Normal S1, Normal S2, Other (2/6 systolic murmur to LLS border) Extremities: No cyanosis, Other (1+ bilateral LE pitting edema) Skin: No breakdown, No significant lesion Neuro: Normal speech, Sensation intact Psych/Mental Status: Mood NL MUSCULOSKELETAL: Osteoarthritic changes both hands VITALS VITALS Vital Signs Date Time Temp Pulse Resp B/P (MAP) Pulse Ox O2 Delivery O2 Flow Rate FiO2 08/17/17 11:00 87 18 145/81 (102) 100 Nasal Cannula 2.0 08/17/17 08:00 98.1 98.1 LABS Lab: Laboratory Tests Test 08/16/17 12:16 08/16/17 13:15 08/16/17 15:00 08/16/17 15:22 Urine Collection Type U cath Urine Color Yellow Urine Clarity Clear Urine pH 6.0 Urine Specific [place] 1.020 Urine Protein Negative mg/dL (NEG-TRACE) Urine Glucose (UA) Negative mg/dL (NEG) Urine Ketones (Stick) Trace mg/dL (NEG) Urine Blood Moderate (NEG) Urine Nitrite Negative (NEG) Urine Bilirubin Negative (NEG) Urine Urobilinogen Dipstick 1.0 mg/dL (0.2 mg/dL) Urine Leukocyte Esterase Negative (NEG) Urine RBC >40 /HPF (0-2) Urine WBC 1-4 /HPF (0-4) Urine Renal Epithelial Cells Few /LPF Urine Bacteria Few /HPF (0-FEW) Urine Mucus Marked /LPF Urine Opiates Screen Neg (NEG) Urine Methadone Screen Neg (NEG) Urine Barbiturates Neg (NEG) Urine Phencyclidine Screen Neg (NEG) Urine Amphetamine/Methamphetamine Neg (NEG) Urine Benzodiazepines Screen Neg (NEG) Urine Cocaine Screen Neg (NEG) Urine Cannabinoids Screen Neg (NEG) Urine Ethyl Alcohol Neg (NEG) O2 Saturation 98 % (92-99) 90 % (92-99) Arterial Blood pH 7.20 (7.35-7.45) 7.23 (7.35-7.45) Arterial Blood pCO2 at Patient Temp 97 mmHg (35-46) 87 mmHg (35-46) Arterial Blood pO2 at Patient Temp 145 mmHg (65-108) 65 mmHg (65-108) Arterial Blood HCO3 37 mmol/L (21-28) 36 mmol/L (21-28) Arterial Blood Base Excess 6 mmol/L (-3-3) 6 mmol/L (-3-3) FiO2 2 lpm nc 30 Influenza Type A Antigen Negative (NEGATIVE) Influenza Type B Antigen Negative (NEGATIVE) Test 08/16/17 16:25 08/16/17 17:05 08/16/17 20:50 08/17/17 02:45 Lactic Acid Level < 0.3 mmol/L (0.4-2.0) O2 Saturation 88 % (92-99) Arterial Blood pH 7.22 (7.35-7.45) Arterial Blood pCO2 at Patient Temp 80 mmHg (35-46) Arterial Blood pO2 at Patient Temp 61 mmHg (65-108) Arterial Blood HCO3 32 mmol/L (21-28) Arterial Blood Base Excess 3 mmol/L (-3-3) FiO2 25 Troponin I Quantitative 0.161 ng/mL (0.000-0.055) 0.141 ng/mL (0.000-0.055) White Blood Count 6.3 x10^3/uL (4.0-11.0) Red Blood Count 3.90 x10^6/uL (3.50-5.40) Hemoglobin 11.4 g/dL (12.0-15.5) Hematocrit 34.4 % (36.0-47.0) Mean Corpuscular Volume 88 fL (79-100) Mean Corpuscular Hemoglobin 29 pg (25-35) Mean Corpuscular Hemoglobin Concent 33 g/dL (31-37) Red Cell Distribution Width 15.6 % (11.5-14.5) Platelet Count 158 x10^3/uL (140-400) Neutrophils (%) (Auto) 67 % (31-73) Lymphocytes (%) (Auto) 25 % (24-48) Monocytes (%) (Auto) 7 % (0-9) Eosinophils (%) (Auto) 1 % (0-3) Basophils (%) (Auto) 1 % (0-3) Neutrophils # (Auto) 4.2 x10^3uL (1.8-7.7) Lymphocytes # (Auto) 1.5 x10^3/uL (1.0-4.8) Monocytes # (Auto) 0.4 x10^3/uL (0.0-1.1) Eosinophils # (Auto) 0.0 x10^3/uL (0.0-0.7) Basophils # (Auto) 0.0 x10^3/uL (0.0-0.2) Sodium Level 138 mmol/L (136-145) Potassium Level 3.4 mmol/L (3.5-5.1) Chloride Level 101 mmol/L (98-107) Carbon Dioxide Level 31 mmol/L (21-32) Anion Gap 6 (6-14) Blood Urea Nitrogen 11 mg/dL (7-20) Creatinine 0.4 mg/dL (0.6-1.0) Estimated GFR (Cockcroft-Gault) 159.7 Glucose Level 81 mg/dL (70-99) Calcium Level 7.7 mg/dL (8.5-10.1) Test 08/17/17 08:15 O2 Saturation 97 % (92-99) Arterial Blood pH 7.44 (7.35-7.45) Arterial Blood pCO2 at Patient Temp 42 mmHg (35-46) Arterial Blood pO2 at Patient Temp 92 mmHg (65-108) Arterial Blood HCO3 28 mmol/L (21-28) Arterial Blood Base Excess 4 mmol/L (-3-3) FiO2 25 ECHOCARDIOGRAM ECHOCARDIOGRAM <Conclusion> The left ventricular systolic function is normal and the ejection fraction is within normal range. The Ejection Fraction is 55%. Transmitral Doppler flow pattern is Grade I-abnormal relaxation pattern. The left atrium size is normal. The right atrium size is normal. The atrial septum is aneurysmal. Injection of bubbles documented no interatrial shunt. The aortic valve is mildly sclerotic. The aortic valve is trileaflet. Mitral annular calcification is mild. The mitral valve leaflets are thickened. Doppler and Color Flow revealed mild tricuspid regurgitation. The pulmonary artery systolic pressure is estimated at 28 mmHg. There is mild pulmonary hypertension. The pulmonary valve is not well visualized but appears to opens well. Doppler and Color Flow revealed pulmonic valvular regurgitation. There is no pulmonic valvular stenosis by spectral Doppler. There is no evidence of significant pericardial effusion. DATE: 05/11/17 1559 STRESS TEST STRESS TEST Conclusion 1. No electrocardiographic changes suggestive of myocardial ischemia with pharmacological stress. 2. No perfusion defects to suggest myocardial ischemia or scar. 3. Normal wall motion and wall thickening with an ejection fraction of 71%. 4. Scan indicates low risk for future cardiac events. DATE: 05/08/17 194 ASSESSMENT/PLAN ASSESSMENT/PLAN 1. Acute respiratory failure: CO2 initially at 97. Mainly related to Opioids/ benzos with psych meds. 2. Elevated troponin: Peaked at 0.16, demand mediated due to above. EKG SR with no acute changes. Recent MPI unremarkable for defects. 3. Chronic back pain/Chronic pain syndrome/chronic opioid use 4. Hx of vertebral compression fractures and osteoporosis. 5. Constipation: per PCP 6. Chronic NSAID use Recommendations 1. Limited TTE. 2. Discussed pain control and will defer adjustment to PCP 3. Lipid panel, TSH Problems: BRANDYN ABRAMS [employer] Aug 17, 2017 12:10
[2017-08-17] MEDS: CALCIUM CARBONATE 500 MG TABLET PO SCH (12:48)
[2017-08-17] MEDS: clonazePAM 1 MG TABLET PO SCH ×2 (12:48→20:48)
[2017-08-17] MEDS: hydroCHLOROthiazide 25 MG TABLET PO SCH (12:48)
[2017-08-17] MEDS: SENNOSIDES 8.6 MG TABLET PO SCH (12:48)
[2017-08-17] MEDS: LOSARTAN POTASSIUM 50 MG TABLET. PO SCH (12:49)
[2017-08-17] MEDS: amLODIPine BESYLATE 10 MG TABLET PO SCH (12:49)
[2017-08-17] MEDS: POTASSIUM CHLORIDE 20 MEQ TABLET.ER. PO SCH (12:52)
--- NOTE | 2017-08-17 13:15 | PDOC ---
PROGRESS NOTES Chief Complaint Chief Complaint AMS, metabolic encephalopathy acute hypoxic and hypercapnic resp failure possible HAP hyponatremia, 2/2 low po intake? sepsis chronic back pain HTN , NOW hypotension hld schizophrenia BIPolar History of Present Illness History of Present Illness Pt seen at bedside in ICU. Per dw her RN, she has c/o SOB, although sats and other signs did not indicate hypoxia during that time. Also per RN, she has received lots of fluids overnight. Will repeat CXR this AM to f/u lung infiltrates after receiving overnight IV fluids. Pt has an extensive psych history and all psych meds have been held since admission. We will restart her home meds in addition to the abx she started since admission. Pt is seated in chair next to bed, in NAD. Is not c/o SOB during our conversation. Does not have CP at this time, and is not coughing nor wheezing during our conversation. Vitals Vitals Vital Signs Date Time Temp Pulse Resp B/P (MAP) Pulse Ox O2 Delivery O2 Flow Rate FiO2 08/17/17 12:49 100 168/83 08/17/17 12:00 98.4 18 100 Nasal Cannula 2.0 98.4 Physical Exam General: Alert, Oriented X3, Cooperative, No acute distress Heart: Regular rate (SR), Normal S1, Normal S2, Other (2/6 systolic murmur to LLS border) Lungs: Clear Extremities: No cyanosis, Other (1+ bilateral LE pitting edema) Skin: No breakdown, No significant lesion Labs LABS Laboratory Tests Test 08/16/17 13:15 08/16/17 15:00 08/16/17 15:22 08/16/17 16:25 O2 Saturation 98 % (92-99) 90 % (92-99) Arterial Blood pH 7.20 (7.35-7.45) 7.23 (7.35-7.45) Arterial Blood pCO2 at Patient Temp 97 mmHg (35-46) 87 mmHg (35-46) Arterial Blood pO2 at Patient Temp 145 mmHg (65-108) 65 mmHg (65-108) Arterial Blood HCO3 37 mmol/L (21-28) 36 mmol/L (21-28) Arterial Blood Base Excess 6 mmol/L (-3-3) 6 mmol/L (-3-3) FiO2 2 lpm nc 30 Influenza Type A Antigen Negative (NEGATIVE) Influenza Type B Antigen Negative (NEGATIVE) Lactic Acid Level < 0.3 mmol/L (0.4-2.0) Test 08/16/17 17:05 08/16/17 20:50 08/17/17 02:45 08/17/17 08:15 O2 Saturation 88 % (92-99) 97 % (92-99) Arterial Blood pH 7.22 (7.35-7.45) 7.44 (7.35-7.45) Arterial Blood pCO2 at Patient Temp 80 mmHg (35-46) 42 mmHg (35-46) Arterial Blood pO2 at Patient Temp 61 mmHg (65-108) 92 mmHg (65-108) Arterial Blood HCO3 32 mmol/L (21-28) 28 mmol/L (21-28) Arterial Blood Base Excess 3 mmol/L (-3-3) 4 mmol/L (-3-3) FiO2 25 25 Troponin I Quantitative 0.161 ng/mL (0.000-0.055) 0.141 ng/mL (0.000-0.055) White Blood Count 6.3 x10^3/uL (4.0-11.0) Red Blood Count 3.90 x10^6/uL (3.50-5.40) Hemoglobin 11.4 g/dL (12.0-15.5) Hematocrit 34.4 % (36.0-47.0) Mean Corpuscular Volume 88 fL (79-100) Mean Corpuscular Hemoglobin 29 pg (25-35) Mean Corpuscular Hemoglobin Concent 33 g/dL (31-37) Red Cell Distribution Width 15.6 % (11.5-14.5) Platelet Count 158 x10^3/uL (140-400) Neutrophils (%) (Auto) 67 % (31-73) Lymphocytes (%) (Auto) 25 % (24-48) Monocytes (%) (Auto) 7 % (0-9) Eosinophils (%) (Auto) 1 % (0-3) Basophils (%) (Auto) 1 % (0-3) Neutrophils # (Auto) 4.2 x10^3uL (1.8-7.7) Lymphocytes # (Auto) 1.5 x10^3/uL (1.0-4.8) Monocytes # (Auto) 0.4 x10^3/uL (0.0-1.1) Eosinophils # (Auto) 0.0 x10^3/uL (0.0-0.7) Basophils # (Auto) 0.0 x10^3/uL (0.0-0.2) Sodium Level 138 mmol/L (136-145) Potassium Level 3.4 mmol/L (3.5-5.1) Chloride Level 101 mmol/L (98-107) Carbon Dioxide Level 31 mmol/L (21-32) Anion Gap 6 (6-14) Blood Urea Nitrogen 11 mg/dL (7-20) Creatinine 0.4 mg/dL (0.6-1.0) Estimated GFR (Cockcroft-Gault) 159.7 Glucose Level 81 mg/dL (70-99) Calcium Level 7.7 mg/dL (8.5-10.1) Review of Systems Review of Systems AOCx3, in NAD. Denies CP. C/o SOB to RN throughout night/into morning. Heart RRR no M. Assessment and Plan Assessmemt and Plan Problems Medical Problems: (1) Altered mental status Status: Acute (2) Respiratory failure with hypoxia and hypercapnia Status: Acute AMS, metabolic encephalopathy acute hypoxic and hypercapnic resp failure possible HAP hyponatremia, 2/2 low po intake? sepsis chronic back pain HTN , NOW hypotension hld schizophrenia BIPolar PLAN: Ordered CXR Continue IV fluids Continue vancomycin Continue home meds Continue ICU monitoring PT/OT Consult pulmonology Problems: Comment Review of Relevant I have reviewed the following items brandie (where applicable) has been applied. Labs Laboratory Tests Test 08/16/17 11:30 08/16/17 12:16 08/16/17 13:15 08/16/17 15:00 White Blood Count 7.4 x10^3/uL (4.0-11.0) Red Blood Count 4.59 x10^6/uL (3.50-5.40) Hemoglobin 13.2 g/dL (12.0-15.5) Hematocrit 39.9 % (36.0-47.0) Mean Corpuscular Volume 87 fL (79-100) Mean Corpuscular Hemoglobin 29 pg (25-35) Mean Corpuscular Hemoglobin Concent 33 g/dL (31-37) Red Cell Distribution Width 15.4 % (11.5-14.5) Platelet Count 179 x10^3/uL (140-400) Neutrophils (%) (Auto) 75 % (31-73) Lymphocytes (%) (Auto) 19 % (24-48) Monocytes (%) (Auto) 5 % (0-9) Eosinophils (%) (Auto) 0 % (0-3) Basophils (%) (Auto) 0 % (0-3) Neutrophils # (Auto) 5.5 x10^3uL (1.8-7.7) Lymphocytes # (Auto) 1.4 x10^3/uL (1.0-4.8) Monocytes # (Auto) 0.4 x10^3/uL (0.0-1.1) Eosinophils # (Auto) 0.0 x10^3/uL (0.0-0.7) Basophils # (Auto) 0.0 x10^3/uL (0.0-0.2) Prothrombin Time 12.3 SEC (11.7-14.0) Prothromb Time International Ratio 1.0 (0.8-1.1) Activated Partial Thromboplast Time 29 SEC (24-38) Sodium Level 131 mmol/L (136-145) Potassium Level 3.7 mmol/L (3.5-5.1) Chloride Level 93 mmol/L (98-107) Carbon Dioxide Level 39 mmol/L (21-32) Anion Gap (6-14) Blood Urea Nitrogen 16 mg/dL (7-20) Creatinine 0.4 mg/dL (0.6-1.0) Estimated GFR (Cockcroft-Gault) 159.7 BUN/Creatinine Ratio 40 (6-20) Glucose Level 105 mg/dL (70-99) Lactic Acid Level 0.7 mmol/L (0.4-2.0) Calcium Level 8.2 mg/dL (8.5-10.1) Total Bilirubin 0.6 mg/dL (0.2-1.0) Aspartate Amino Transf (AST/SGOT) 24 U/L (15-37) Alanine Aminotransferase (ALT/SGPT) 30 U/L (14-59) Alkaline Phosphatase 87 U/L (46-116) Total Protein 6.5 g/dL (6.4-8.2) Albumin 3.5 g/dL (3.4-5.0) Albumin/Globulin Ratio 1.2 (1.0-1.7) Lipase 80 U/L (73-393) Urine Collection Type U cath Urine Color Yellow Urine Clarity Clear Urine pH 6.0 Urine Specific Marcell 1.020 Urine Protein Negative mg/dL (NEG-TRACE) Urine Glucose (UA) Negative mg/dL (NEG) Urine Ketones (Stick) Trace mg/dL (NEG) Urine Blood Moderate (NEG) Urine Nitrite Negative (NEG) Urine Bilirubin Negative (NEG) Urine Urobilinogen Dipstick 1.0 mg/dL (0.2 mg/dL) Urine Leukocyte Esterase Negative (NEG) Urine RBC >40 /HPF (0-2) Urine WBC 1-4 /HPF (0-4) Urine Renal Epithelial Cells Few /LPF Urine Bacteria Few /HPF (0-FEW) Urine Mucus Marked /LPF Urine Opiates Screen Neg (NEG) Urine Methadone Screen Neg (NEG) Urine Barbiturates Neg (NEG) Urine Phencyclidine Screen Neg (NEG) Urine Amphetamine/Methamphetamine Neg (NEG) Urine Benzodiazepines Screen Neg (NEG) Urine Cocaine Screen Neg (NEG) Urine Cannabinoids Screen Neg (NEG) Urine Ethyl Alcohol Neg (NEG) O2 Saturation 98 % (92-99) 90 % (92-99) Arterial Blood pH 7.20 (7.35-7.45) 7.23 (7.35-7.45) Arterial Blood pCO2 at Patient Temp 97 mmHg (35-46) 87 mmHg (35-46) Arterial Blood pO2 at Patient Temp 145 mmHg (65-108) 65 mmHg (65-108) Arterial Blood HCO3 37 mmol/L (21-28) 36 mmol/L (21-28) Arterial Blood Base Excess 6 mmol/L (-3-3) 6 mmol/L (-3-3) FiO2 2 lpm nc 30 Test 08/16/17 15:22 08/16/17 16:25 08/16/17 17:05 08/16/17 20:50 Influenza Type A Antigen Negative (NEGATIVE) Influenza Type B Antigen Negative (NEGATIVE) Lactic Acid Level < 0.3 mmol/L (0.4-2.0) O2 Saturation 88 % (92-99) Arterial Blood pH 7.22 (7.35-7.45) Arterial Blood pCO2 at Patient Temp 80 mmHg (35-46) Arterial Blood pO2 at Patient Temp 61 mmHg (65-108) Arterial Blood HCO3 32 mmol/L (21-28) Arterial Blood Base Excess 3 mmol/L (-3-3) FiO2 25 Troponin I Quantitative 0.161 ng/mL (0.000-0.055) Test 08/17/17 02:45 08/17/17 08:15 White Blood Count 6.3 x10^3/uL (4.0-11.0) Red Blood Count 3.90 x10^6/uL (3.50-5.40) Hemoglobin 11.4 g/dL (12.0-15.5) Hematocrit 34.4 % (36.0-47.0) Mean Corpuscular Volume 88 fL (79-100) Mean Corpuscular Hemoglobin 29 pg (25-35) Mean Corpuscular Hemoglobin Concent 33 g/dL (31-37) Red Cell Distribution Width 15.6 % (11.5-14.5) Platelet Count 158 x10^3/uL (140-400) Neutrophils (%) (Auto) 67 % (31-73) Lymphocytes (%) (Auto) 25 % (24-48) Monocytes (%) (Auto) 7 % (0-9) Eosinophils (%) (Auto) 1 % (0-3) Basophils (%) (Auto) 1 % (0-3) Neutrophils # (Auto) 4.2 x10^3uL (1.8-7.7) Lymphocytes # (Auto) 1.5 x10^3/uL (1.0-4.8) Monocytes # (Auto) 0.4 x10^3/uL (0.0-1.1) Eosinophils # (Auto) 0.0 x10^3/uL (0.0-0.7) Basophils # (Auto) 0.0 x10^3/uL (0.0-0.2) Sodium Level 138 mmol/L (136-145) Potassium Level 3.4 mmol/L (3.5-5.1) Chloride Level 101 mmol/L (98-107) Carbon Dioxide Level 31 mmol/L (21-32) Anion Gap 6 (6-14) Blood Urea Nitrogen 11 mg/dL (7-20) Creatinine 0.4 mg/dL (0.6-1.0) Estimated GFR (Cockcroft-Gault) 159.7 Glucose Level 81 mg/dL (70-99) Calcium Level 7.7 mg/dL (8.5-10.1) Troponin I Quantitative 0.141 ng/mL (0.000-0.055) O2 Saturation 97 % (92-99) Arterial Blood pH 7.44 (7.35-7.45) Arterial Blood pCO2 at Patient Temp 42 mmHg (35-46) Arterial Blood pO2 at Patient Temp 92 mmHg (65-108) Arterial Blood HCO3 28 mmol/L (21-28) Arterial Blood Base Excess 4 mmol/L (-3-3) FiO2 25 Laboratory Tests Test 08/16/17 13:15 08/16/17 15:00 08/16/17 15:22 08/16/17 16:25 O2 Saturation 98 % (92-99) 90 % (92-99) Arterial Blood pH 7.20 (7.35-7.45) 7.23 (7.35-7.45) Arterial Blood pCO2 at Patient Temp 97 mmHg (35-46) 87 mmHg (35-46) Arterial Blood pO2 at Patient Temp 145 mmHg (65-108) 65 mmHg (65-108) Arterial Blood HCO3 37 mmol/L (21-28) 36 mmol/L (21-28) Arterial Blood Base Excess 6 mmol/L (-3-3) 6 mmol/L (-3-3) FiO2 2 lpm nc 30 Influenza Type A Antigen Negative (NEGATIVE) Influenza Type B Antigen Negative (NEGATIVE) Lactic Acid Level < 0.3 mmol/L (0.4-2.0) Test 08/16/17 17:05 08/16/17 20:50 08/17/17 02:45 08/17/17 08:15 O2 Saturation 88 % (92-99) 97 % (92-99) Arterial Blood pH 7.22 (7.35-7.45) 7.44 (7.35-7.45) Arterial Blood pCO2 at Patient Temp 80 mmHg (35-46) 42 mmHg (35-46) Arterial Blood pO2 at Patient Temp 61 mmHg (65-108) 92 mmHg (65-108) Arterial Blood HCO3 32 mmol/L (21-28) 28 mmol/L (21-28) Arterial Blood Base Excess 3 mmol/L (-3-3) 4 mmol/L (-3-3) FiO2 25 25 Troponin I Quantitative 0.161 ng/mL (0.000-0.055) 0.141 ng/mL (0.000-0.055) White Blood Count 6.3 x10^3/uL (4.0-11.0) Red Blood Count 3.90 x10^6/uL (3.50-5.40) Hemoglobin 11.4 g/dL (12.0-15.5) Hematocrit 34.4 % (36.0-47.0) Mean Corpuscular Volume 88 fL (79-100) Mean Corpuscular Hemoglobin 29 pg (25-35) Mean Corpuscular Hemoglobin Concent 33 g/dL (31-37) Red Cell Distribution Width 15.6 % (11.5-14.5) Platelet Count 158 x10^3/uL (140-400) Neutrophils (%) (Auto) 67 % (31-73) Lymphocytes (%) (Auto) 25 % (24-48) Monocytes (%) (Auto) 7 % (0-9) Eosinophils (%) (Auto) 1 % (0-3) Basophils (%) (Auto) 1 % (0-3) Neutrophils # (Auto) 4.2 x10^3uL (1.8-7.7) Lymphocytes # (Auto) 1.5 x10^3/uL (1.0-4.8) Monocytes # (Auto) 0.4 x10^3/uL (0.0-1.1) Eosinophils # (Auto) 0.0 x10^3/uL (0.0-0.7) Basophils # (Auto) 0.0 x10^3/uL (0.0-0.2) Sodium Level 138 mmol/L (136-145) Potassium Level 3.4 mmol/L (3.5-5.1) Chloride Level 101 mmol/L (98-107) Carbon Dioxide Level 31 mmol/L (21-32) Anion Gap 6 (6-14) Blood Urea Nitrogen 11 mg/dL (7-20) Creatinine 0.4 mg/dL (0.6-1.0) Estimated GFR (Cockcroft-Gault) 159.7 Glucose Level 81 mg/dL (70-99) Calcium Level 7.7 mg/dL (8.5-10.1) Medications Current Medications Iohexol (Omnipaque 300 Mg/ml) 75 ml 1X ONCE IV ; Start 08/16/17 at 12:45; Stop 08/16/17 at 12:46; Status DC Info (Do NOT chart on this entry -- for MONITORING) 1 each PRN DAILY PRN MC SEE COMMENTS; Start 08/16/17 at 13:00; Stop 08/18/17 at 12:59 Cefepime HCl 2 gm/ Dextrose 100 ml @ 200 mls/hr Q8HRS IV ; Start 08/16/17 at 22 :00; Status Cancel Vancomycin HCl (Vanco Per Pharmacy) 1 each PRN DAILY PRN MC SEE COMMENTS Last administered on 08/16/17 14:55; Start 08/16/17 at 14:15 Cefepime HCl (Maxipime) 2 gm 1X ONCE IVP Last administered on 08/16/17 14:32 ; Start 08/16/17 at 14:15; Stop 08/16/17 at 14:16; Status DC Vancomycin HCl 1.25 gm/Dextrose 250 ml @ 166.667 mls/hr 1X ONCE IV Last administered on 08/16/17 14:39; Start 08/16/17 at 14:15; Stop 08/16/17 at 15:44 ; Status DC Sodium Chloride 1,000 ml @ 1,380 mls/hr Q44M IV Last administered on 16:16; Start 08/16/17 at 14:34; Stop 08/16/17 at 15:34; Status DC Ondansetron HCl (Zofran) 4 mg PRN Q8HRS PRN IV NAUSEA/VOMITING; Start 08/16/17 at 14:45; Stop 08/17/17 at 01:29; Status DC Sodium Chloride 1,000 ml @ 125 mls/hr Q8H IV Last administered on 08/17/17 05 :03; Start 08/16/17 at 14:38; Stop 08/17/17 at 14:37 Albuterol/ Ipratropium (Duoneb) 3 ml RTQID NEB Last administered on 08/17/17 11:48; Start 08/16/17 at 16:00; Stop 08/17/17 at 15:59 Cefepime HCl (Maxipime) 2 gm Q8HRS IVP Last administered on 08/17/17 05:03; Start 08/16/17 at 22:00 Vancomycin HCl 750 mg/Dextrose 250 ml @ 250 mls/hr Q12H IV Last administered on 08/17/17 03:22; Start 08/17/17 at 03:00 Vancomycin HCl 1 each 1X ONCE MC ; Start 08/18/17 at 02:30; Stop 08/18/17 at 02 :31 Sodium Chloride 1,000 ml @ 1,000 mls/hr 1X ONCE IV ; Start 08/16/17 at 15:15; Stop 08/16/17 at 16:14; Status DC Atorvastatin Calcium (Lipitor) 40 mg QHS PO Last administered on 08/16/17 20: 48; Start 08/16/17 at 21:00 Docusate Sodium (Colace) 100 mg DAILY PO ; Start 08/16/17 at 17:00; Stop at 17:00; Status DC Bupropion HCl (Wellbutrin Xl) 300 mg DAILY PO Last administered on 08/17/17 09 :08; Start 08/17/17 at 09:00 Vitamin D (Vitamin D3) 5,000 unit WEEKLY PO Last administered on 08/17/17 09: 08; Start 08/17/17 at 09:00 Lubiprostone (Amitiza) 24 mcg BIDWMEALS PO Last administered on 08/17/17 09:08 ; Start 08/16/17 at 17:00 Lurasidone HCl (Latuda) 120 mg DAILYWSUP PO ; Start 08/16/17 at 17:00 Non-Formulary Medication 1 each HS PO ; Start 08/16/17 at 21:00; Status UNV Acetaminophen (Tylenol) 650 mg PRN Q6HRS PRN PO FEVER; Start 08/16/17 at 16:30 Ondansetron HCl (Zofran) 4 mg PRN Q6HRS PRN IV NAUSEA/VOMITING; Start 08/16/17 at 16:30 Morphine Sulfate 2 mg PRN Q2HR PRN IV PAIN; Start 08/16/17 at 16:30 Tramadol HCl (Ultram) 50 mg PRN Q6HRS PRN PO PAIN; Start 08/16/17 at 16:30 Hydralazine HCl (Apresoline Inj) 10 mg PRN Q4HRS PRN IVP ELEVATED BP, SEE COMMENTS; Start 08/16/17 at 16:30 Docusate Sodium (Colace) 100 mg PRN DAILY PRN PO CONSTIPATION; Start 08/16/17 at 16:30 Albuterol/ Ipratropium (Duoneb) 3 ml RTQID NEB Last administered on 08/16/17 19:43; Start 08/16/17 at 17:00 Albuterol Sulfate (Ventolin Neb Soln) 2.5 mg PRN Q2HR PRN NEB SHORTNESS OF BREATH; Start 08/16/17 at 16:30 Guaifenesin (Mucinex) 600 mg BID PO Last administered on 08/17/17 09:09; Start 08/16/17 at 21:00 Enoxaparin Sodium (Lovenox 40mg Syringe) 40 mg Q24H SQ Last administered on 17:38; Start 08/16/17 at 17:00 Famotidine (Pepcid) 20 mg QHS IVP Last administered on 08/16/17 20:48; Start 08/16/17 at 21:00 Sodium Bicarbonate 50 meq 1X ONCE IV Last administered on 08/16/17 17:42; Start 08/16/17 at 17:30; Stop 08/16/17 at 17:38; Status DC Norepinephrine Bitartrate 250 ml @ As Directed STK-MED ONCE IV ; Start at 23:03; Stop 08/16/17 at 23:04; Status DC Norepinephrine Bitartrate 250 ml @ 0 mls/hr CONT PRN IV SEE I/O RECORD Last administered on 08/17/17 02:05; Start 08/17/17 at 01:15 Amlodipine Besylate (Norvasc) 10 mg DAILY PO Last administered on 08/17/17 12: 49; Start 08/17/17 at 12:00 Clonazepam (KlonoPIN) 1 mg BID PO Last administered on 08/17/17 12:48; Start 08/17/17 at 12:00 Hydrochlorothiazide (Hydrodiuril) 25 mg DAILY PO Last administered on 12:48; Start 08/17/17 at 12:00 Acetaminophen/ Hydrocodone Bitart (Lortab 5/325) 1 tab PRN Q6HRS PRN PO PAIN; Start 08/17/17 at 11:30 Potassium Chloride (Klor-Con) 20 meq DAILYWBKFT PO Last administered on 12:52; Start 08/17/17 at 12:00 Sennosides (Senna) 8.6 mg DAILY PO Last administered on 08/17/17 12:48; Start 08/17/17 at 12:00 Temazepam (Restoril) 30 mg QHS PO ; Start 08/17/17 at 21:00 Tizanidine HCl (Zanaflex) 4 mg PRN Q8HRS PRN PO MUSCLE SPASMS; Start 08/17/17 at 11:30 Non-Formulary Medication 70 mg WEEKLY PO ; Start 08/24/17 at 09:00; Status UNV Calcium Carbonate/ Glycine (Oscal) 500 mg DAILY PO Last administered on 12:48; Start 08/17/17 at 12:00 Gabapentin (Neurontin) 300 mg TID PO ; Start 08/17/17 at 14:00 Ibuprofen (Motrin) 600 mg PRN Q6HRS PRN PO PAIN; Start 08/17/17 at 11:45 Losartan Potassium (Cozaar) 50 mg DAILY PO Last administered on 08/17/17 12:49 ; Start 08/17/17 at 12:00 Non-Formulary Medication 375 mg BID PRN PO PAIN; Start 08/17/17 at 11:30; Status UNV Sumatriptan Succinate (Imitrex) 100 mg PRN Q2HR PRN PO MIGRAINE HEADACHE; Start 08/17/17 at 11:45 Active Scripts Active Morphine Sulfate 15 Mg Tablet 1 Tab PO PRN Q6-8HRS PRN Naproxen 375 Mg Tablet 375 Mg PO BID PRN Reported Calcium (Calcium Carbonate) 600 Mg Tablet 600 Mg PO DAILY Temazepam 30 Mg Capsule 1 Cap PO QHS Senna (Sennosides) 8.6 Mg Tablet 8.6 Mg PO Gabapentin 300 Mg Capsule 300 Mg PO TID Tizanidine Hcl 4 Mg Tablet 4 Mg PO PRN Q8HRS PRN Amitiza (Lubiprostone) 24 Mcg Capsule 24 Mcg PO BID Stool Softener (Docusate Sodium) 100 Mg Capsule 100 Mg PO DAILY Melatonin 5 Mg Tablet (Melatonin/Pyridoxine Hcl (B6)) 1 Each Tablet 1 Each PO HS Latuda (Lurasidone Hcl) 120 Mg Tablet 120 Mg PO DAILYWSUP Bupropion Xl (Bupropion Hcl) 300 Mg Tab.er.24h 300 Mg PO DAILY Alendronate Sodium 70 Mg Tablet 70 Mg PO WEEKLY Ibuprofen 600 Mg Tablet 600 Mg PO Q6H PRN Hydrocodone-Apap 5-325 (Hydrocodone Bit/Acetaminophen) 1 Each Tablet 1 Tab PO PRN Q6HRS PRN Vitamin D-3 (Cholecalciferol (Vitamin D3)) 2,000 Unit Tablet 5,000 Unit PO WEEKLY Losartan Potassium 100 Mg Tablet 50 Mg PO DAILY Amlodipine Besylate 10 Mg Tablet 10 Mg PO DAILY Atorvastatin Calcium 40 Mg Tablet 40 Mg PO DAILY Hydrochlorothiazide Capsule (Hydrochlorothiazide) 12.5 Mg Capsule 25 Mg PO DAILY Potassium Chloride 20 Meq Tab.er.prt 20 Meq PO DAILY Maxalt (Rizatriptan Benzoate) 10 Mg Tablet 10 Mg PO PRN PRN Clonazepam 1 Mg Tablet 1 Mg PO BID Vitals/I & O Vital Sign - Last 24 Hours 08/16/17 08/16/17 08/16/17 08/16/17 13:35 13:48 14:31 14:33 Pulse 86 70 72 B/P (MAP) 131/60 (83) 69/49 (56) 78/49 (59) Pulse Ox 93 99 97 96 O2 Delivery BiPAP/CPAP BiPAP/CPAP BiPAP/CPAP BiPAP/CPAP 08/16/17 08/16/17 08/16/17 08/16/17 14:35 14:50 15:05 15:18 Pulse 70 72 72 B/P (MAP) 83/50 (61) 78/44 (55) 79/50 (60) Pulse Ox 95 99 95 95 O2 Delivery BiPAP/CPAP BiPAP/CPAP BiPAP/CPAP BiPAP/CPAP 08/16/17 08/16/17 08/16/17 08/16/17 15:20 15:45 15:53 16:00 Temp 97.1 97.1 Pulse 72 71 Resp 15 B/P (MAP) 80/51 (61) 96/61 (73) Pulse Ox 97 100 O2 Delivery BiPAP/CPAP BiPAP/CPAP Bi-pap O2 Flow Rate 2.0 08/16/17 08/16/17 08/16/17 08/16/17 17:00 18:00 18:12 19:30 Temp 98.1 98.1 Pulse 69 74 72 Resp 22 20 25 B/P (MAP) 98/68 (78) 91/54 (66) 85/56 (66) Pulse Ox 99 99 100 96 O2 Delivery BiPAP/CPAP BiPAP/CPAP BiPAP/CPAP BiPAP/CPAP 08/16/17 08/16/17 08/16/17 08/16/17 19:30 19:43 20:00 21:00 Pulse 72 76 Resp 24 25 B/P (MAP) 85/55 (65) 100/60 (73) Pulse Ox 100 97 97 O2 Delivery Bi-pap BiPAP/CPAP BiPAP/CPAP BiPAP/CPAP 08/16/17 08/16/17 08/16/17 08/17/17 22:00 23:17 23:59 00:00 Pulse 70 73 Resp 24 24 B/P (MAP) 82/55 (64) 88/55 (66) Pulse Ox 99 100 99 O2 Delivery BiPAP/CPAP BiPAP/CPAP Bi-pap BiPAP/CPAP 08/17/17 08/17/17 08/17/17 08/17/17 00:43 01:00 01:22 02:00 Temp 97.2 97.2 Pulse 77 84 80 Resp 24 22 20 B/P (MAP) 71/50 (57) 95/61 (72) 105/60 (75) Pulse Ox 100 99 99 99 O2 Delivery BiPAP/CPAP BiPAP/CPAP BiPAP/CPAP BiPAP/CPAP 08/17/17 08/17/17 08/17/17 08/17/17 02:47 03:00 04:00 04:00 Temp 97.6 97.6 Pulse 75 79 Resp 20 20 B/P (MAP) 113/66 (82) 120/60 (80) Pulse Ox 100 95 95 O2 Delivery BiPAP/CPAP BiPAP/CPAP BiPAP/CPAP Bi-pap 08/17/17 08/17/17 08/17/17 08/17/17 05:00 05:05 06:00 07:00 Pulse 72 77 65 Resp 20 20 23 B/P (MAP) 119/66 (83) 131/73 (92) 111/57 (75) Pulse Ox 93 100 95 100 O2 Delivery BiPAP/CPAP BiPAP/CPAP BiPAP/CPAP BiPAP/CPAP 11/6/17 08/17/17 08/17/17 08/17/17 07:55 08:00 08:00 09:00 Temp 98.1 98.1 Pulse 68 86 Resp 16 20 B/P (MAP) 133/72 (92) 137/72 (93) Pulse Ox 100 100 100 O2 Delivery BiPAP/CPAP Nasal Cannula Nasal Cannula O2 Flow Rate 2.0 2.0 2.0 08/17/17 08/17/17 08/17/17 08/17/17 10:00 11:00 11:49 12:00 Temp 98.4 98.4 Pulse 94 87 104 Resp 20 18 18 B/P (MAP) 178/73 (108) 145/81 (102) 168/83 (111) Pulse Ox 100 100 99 100 O2 Delivery Nasal Cannula Nasal Cannula Nasal Cannula Nasal Cannula O2 Flow Rate 2.0 2.0 2.0 2.0 08/17/17 08/17/17 12:49 12:49 Pulse 99 100 B/P (MAP) 168/83 168/83 Intake and Output 08/17/17 08/17/17 08/18/17 15:00 23:00 07:00 Intake Total 40 ml Output Total 865 ml Balance -825 ml BRITNEY SUMMERS K III DO Aug 17, 2017 13:14
--- NOTE | 2017-08-17 15:23 | PDOC ---
PULMONARY PROGRESS NOTES Vitals Vital Signs Date Time Temp Pulse Resp B/P (MAP) Pulse Ox O2 Delivery O2 Flow Rate FiO2 08/17/17 14:00 88 16 121/71 (88) 99 Nasal Cannula 2.0 08/17/17 12:00 98.4 98.4 Lungs: Clear Cardiovascular: S1, S2 Labs Laboratory Tests Test 08/16/17 11:30 08/16/17 12:16 08/16/17 13:15 08/16/17 15:00 White Blood Count 7.4 x10^3/uL (4.0-11.0) Red Blood Count 4.59 x10^6/uL (3.50-5.40) Hemoglobin 13.2 g/dL (12.0-15.5) Hematocrit 39.9 % (36.0-47.0) Mean Corpuscular Volume 87 fL (79-100) Mean Corpuscular Hemoglobin 29 pg (25-35) Mean Corpuscular Hemoglobin Concent 33 g/dL (31-37) Red Cell Distribution Width 15.4 % (11.5-14.5) Platelet Count 179 x10^3/uL (140-400) Neutrophils (%) (Auto) 75 % (31-73) Lymphocytes (%) (Auto) 19 % (24-48) Monocytes (%) (Auto) 5 % (0-9) Eosinophils (%) (Auto) 0 % (0-3) Basophils (%) (Auto) 0 % (0-3) Neutrophils # (Auto) 5.5 x10^3uL (1.8-7.7) Lymphocytes # (Auto) 1.4 x10^3/uL (1.0-4.8) Monocytes # (Auto) 0.4 x10^3/uL (0.0-1.1) Eosinophils # (Auto) 0.0 x10^3/uL (0.0-0.7) Basophils # (Auto) 0.0 x10^3/uL (0.0-0.2) Prothrombin Time 12.3 SEC (11.7-14.0) Prothromb Time International Ratio 1.0 (0.8-1.1) Activated Partial Thromboplast Time 29 SEC (24-38) Sodium Level 131 mmol/L (136-145) Potassium Level 3.7 mmol/L (3.5-5.1) Chloride Level 93 mmol/L (98-107) Carbon Dioxide Level 39 mmol/L (21-32) Anion Gap (6-14) Blood Urea Nitrogen 16 mg/dL (7-20) Creatinine 0.4 mg/dL (0.6-1.0) Estimated GFR (Cockcroft-Gault) 159.7 BUN/Creatinine Ratio 40 (6-20) Glucose Level 105 mg/dL (70-99) Lactic Acid Level 0.7 mmol/L (0.4-2.0) Calcium Level 8.2 mg/dL (8.5-10.1) Total Bilirubin 0.6 mg/dL (0.2-1.0) Aspartate Amino Transf (AST/SGOT) 24 U/L (15-37) Alanine Aminotransferase (ALT/SGPT) 30 U/L (14-59) Alkaline Phosphatase 87 U/L (46-116) Total Protein 6.5 g/dL (6.4-8.2) Albumin 3.5 g/dL (3.4-5.0) Albumin/Globulin Ratio 1.2 (1.0-1.7) Lipase 80 U/L (73-393) Urine Collection Type U cath Urine Color Yellow Urine Clarity Clear Urine pH 6.0 Urine Specific Carey 1.020 Urine Protein Negative mg/dL (NEG-TRACE) Urine Glucose (UA) Negative mg/dL (NEG) Urine Ketones (Stick) Trace mg/dL (NEG) Urine Blood Moderate (NEG) Urine Nitrite Negative (NEG) Urine Bilirubin Negative (NEG) Urine Urobilinogen Dipstick 1.0 mg/dL (0.2 mg/dL) Urine Leukocyte Esterase Negative (NEG) Urine RBC >40 /HPF (0-2) Urine WBC 1-4 /HPF (0-4) Urine Renal Epithelial Cells Few /LPF Urine Bacteria Few /HPF (0-FEW) Urine Mucus Marked /LPF Urine Opiates Screen Neg (NEG) Urine Methadone Screen Neg (NEG) Urine Barbiturates Neg (NEG) Urine Phencyclidine Screen Neg (NEG) Urine Amphetamine/Methamphetamine Neg (NEG) Urine Benzodiazepines Screen Neg (NEG) Urine Cocaine Screen Neg (NEG) Urine Cannabinoids Screen Neg (NEG) Urine Ethyl Alcohol Neg (NEG) O2 Saturation 98 % (92-99) 90 % (92-99) Arterial Blood pH 7.20 (7.35-7.45) 7.23 (7.35-7.45) Arterial Blood pCO2 at Patient Temp 97 mmHg (35-46) 87 mmHg (35-46) Arterial Blood pO2 at Patient Temp 145 mmHg (65-108) 65 mmHg (65-108) Arterial Blood HCO3 37 mmol/L (21-28) 36 mmol/L (21-28) Arterial Blood Base Excess 6 mmol/L (-3-3) 6 mmol/L (-3-3) FiO2 2 lpm nc 30 Test 08/16/17 15:22 08/16/17 16:25 08/16/17 17:05 08/16/17 20:50 Influenza Type A Antigen Negative (NEGATIVE) Influenza Type B Antigen Negative (NEGATIVE) Lactic Acid Level < 0.3 mmol/L (0.4-2.0) O2 Saturation 88 % (92-99) Arterial Blood pH 7.22 (7.35-7.45) Arterial Blood pCO2 at Patient Temp 80 mmHg (35-46) Arterial Blood pO2 at Patient Temp 61 mmHg (65-108) Arterial Blood HCO3 32 mmol/L (21-28) Arterial Blood Base Excess 3 mmol/L (-3-3) FiO2 25 Troponin I Quantitative 0.161 ng/mL (0.000-0.055) Test 08/17/17 02:45 08/17/17 08:15 White Blood Count 6.3 x10^3/uL (4.0-11.0) Red Blood Count 3.90 x10^6/uL (3.50-5.40) Hemoglobin 11.4 g/dL (12.0-15.5) Hematocrit 34.4 % (36.0-47.0) Mean Corpuscular Volume 88 fL (79-100) Mean Corpuscular Hemoglobin 29 pg (25-35) Mean Corpuscular Hemoglobin Concent 33 g/dL (31-37) Red Cell Distribution Width 15.6 % (11.5-14.5) Platelet Count 158 x10^3/uL (140-400) Neutrophils (%) (Auto) 67 % (31-73) Lymphocytes (%) (Auto) 25 % (24-48) Monocytes (%) (Auto) 7 % (0-9) Eosinophils (%) (Auto) 1 % (0-3) Basophils (%) (Auto) 1 % (0-3) Neutrophils # (Auto) 4.2 x10^3uL (1.8-7.7) Lymphocytes # (Auto) 1.5 x10^3/uL (1.0-4.8) Monocytes # (Auto) 0.4 x10^3/uL (0.0-1.1) Eosinophils # (Auto) 0.0 x10^3/uL (0.0-0.7) Basophils # (Auto) 0.0 x10^3/uL (0.0-0.2) Sodium Level 138 mmol/L (136-145) Potassium Level 3.4 mmol/L (3.5-5.1) Chloride Level 101 mmol/L (98-107) Carbon Dioxide Level 31 mmol/L (21-32) Anion Gap 6 (6-14) Blood Urea Nitrogen 11 mg/dL (7-20) Creatinine 0.4 mg/dL (0.6-1.0) Estimated GFR (Cockcroft-Gault) 159.7 Glucose Level 81 mg/dL (70-99) Calcium Level 7.7 mg/dL (8.5-10.1) Troponin I Quantitative 0.141 ng/mL (0.000-0.055) O2 Saturation 97 % (92-99) Arterial Blood pH 7.44 (7.35-7.45) Arterial Blood pCO2 at Patient Temp 42 mmHg (35-46) Arterial Blood pO2 at Patient Temp 92 mmHg (65-108) Arterial Blood HCO3 28 mmol/L (21-28) Arterial Blood Base Excess 4 mmol/L (-3-3) FiO2 25 Laboratory Tests Test 08/16/17 16:25 08/16/17 17:05 08/16/17 20:50 08/17/17 02:45 Lactic Acid Level < 0.3 mmol/L (0.4-2.0) O2 Saturation 88 % (92-99) Arterial Blood pH 7.22 (7.35-7.45) Arterial Blood pCO2 at Patient Temp 80 mmHg (35-46) Arterial Blood pO2 at Patient Temp 61 mmHg (65-108) Arterial Blood HCO3 32 mmol/L (21-28) Arterial Blood Base Excess 3 mmol/L (-3-3) FiO2 25 Troponin I Quantitative 0.161 ng/mL (0.000-0.055) 0.141 ng/mL (0.000-0.055) White Blood Count 6.3 x10^3/uL (4.0-11.0) Red Blood Count 3.90 x10^6/uL (3.50-5.40) Hemoglobin 11.4 g/dL (12.0-15.5) Hematocrit 34.4 % (36.0-47.0) Mean Corpuscular Volume 88 fL (79-100) Mean Corpuscular Hemoglobin 29 pg (25-35) Mean Corpuscular Hemoglobin Concent 33 g/dL (31-37) Red Cell Distribution Width 15.6 % (11.5-14.5) Platelet Count 158 x10^3/uL (140-400) Neutrophils (%) (Auto) 67 % (31-73) Lymphocytes (%) (Auto) 25 % (24-48) Monocytes (%) (Auto) 7 % (0-9) Eosinophils (%) (Auto) 1 % (0-3) Basophils (%) (Auto) 1 % (0-3) Neutrophils # (Auto) 4.2 x10^3uL (1.8-7.7) Lymphocytes # (Auto) 1.5 x10^3/uL (1.0-4.8) Monocytes # (Auto) 0.4 x10^3/uL (0.0-1.1) Eosinophils # (Auto) 0.0 x10^3/uL (0.0-0.7) Basophils # (Auto) 0.0 x10^3/uL (0.0-0.2) Sodium Level 138 mmol/L (136-145) Potassium Level 3.4 mmol/L (3.5-5.1) Chloride Level 101 mmol/L (98-107) Carbon Dioxide Level 31 mmol/L (21-32) Anion Gap 6 (6-14) Blood Urea Nitrogen 11 mg/dL (7-20) Creatinine 0.4 mg/dL (0.6-1.0) Estimated GFR (Cockcroft-Gault) 159.7 Glucose Level 81 mg/dL (70-99) Calcium Level 7.7 mg/dL (8.5-10.1) Test 08/17/17 08:15 O2 Saturation 97 % (92-99) Arterial Blood pH 7.44 (7.35-7.45) Arterial Blood pCO2 at Patient Temp 42 mmHg (35-46) Arterial Blood pO2 at Patient Temp 92 mmHg (65-108) Arterial Blood HCO3 28 mmol/L (21-28) Arterial Blood Base Excess 4 mmol/L (-3-3) FiO2 25 Medications Active Scripts Medications Dose Route/Sig Max Daily Dose Days Date Category Calcium (Calcium Carbonate) 600 Mg Tablet 600 Mg PO DAILY 08/16/17 Reported Temazepam 30 Mg Capsule 1 Cap PO QHS 08/16/17 Reported Senna (Sennosides) 8.6 Mg Tablet 8.6 Mg PO 08/16/17 Reported Gabapentin 300 Mg Capsule 300 Mg PO TID 08/16/17 Reported Tizanidine Hcl 4 Mg Tablet 4 Mg PO PRN Q8HRS PRN 02/15/17 Reported Amitiza (Lubiprostone) 24 Mcg Capsule 24 Mcg PO BID 02/15/17 Reported Morphine Sulfate 15 Mg Tablet 1 Tab PO PRN Q6-8HRS PRN 02/13/17 Rx Naproxen 375 Mg Tablet 375 Mg PO BID PRN 12/13/16 Rx Stool Softener (Docusate Sodium) 100 Mg Capsule 100 Mg PO DAILY 09/19/15 Reported Melatonin 5 Mg Tablet (Melatonin/Pyridoxine Hcl (B6)) 1 Each Tablet 1 Each PO HS 09/19/15 Reported Latuda (Lurasidone Hcl) 120 Mg Tablet 120 Mg PO DAILYWSUP 09/19/15 Reported Bupropion Xl (Bupropion Hcl) 300 Mg Tab.er.24h 300 Mg PO DAILY 09/19/15 Reported Alendronate Sodium 70 Mg Tablet 70 Mg PO WEEKLY 09/19/15 Reported Ibuprofen 600 Mg Tablet 600 Mg PO Q6H PRN 09/19/15 Reported Hydrocodone-Apap 5-325 (Hydrocodone Bit/Acetaminophen) 1 Each Tablet 1 Tab PO PRN Q6HRS PRN 09/19/15 Reported Vitamin D-3 (Cholecalciferol (Vitamin D3)) 2,000 Unit Tablet 5,000 Unit PO WEEKLY 09/19/15 Reported Losartan Potassium 100 Mg Tablet 50 Mg PO DAILY 09/19/15 Reported Amlodipine Besylate 10 Mg Tablet 10 Mg PO DAILY 09/19/15 Reported Atorvastatin Calcium 40 Mg Tablet 40 Mg PO DAILY 12/9/15 Reported Hydrochlorothiazide Capsule (Hydrochlorothiazide) 12.5 Mg Capsule 25 Mg PO DAILY 09/19/15 Reported Potassium Chloride 20 Meq Tab.er.prt 20 Meq PO DAILY 09/19/15 Reported Maxalt (Rizatriptan Benzoate) 10 Mg Tablet 10 Mg PO PRN PRN 09/19/15 Reported Clonazepam 1 Mg Tablet 1 Mg PO BID 11/25/13 Reported Impression . DICTATED ACUTE RESP FAILURE MULTIFACTORIAL AGREE WITH CURRENT RX OK TO TRANSFER OUT OF ICU ZANDER LOPEZ MD Aug 17, 2017 15:23
[2017-08-17] MEDS: GABAPENTIN 300 MG CAPSULE. PO SCH ×2 (15:27→20:48)
[2017-08-17 16:13] LABS: SPECIMEN SOURCE Urine (.)
--- NOTE | 2017-08-17 16:30 | RAD ---
Portable AP upright chest x-ray performed at 1138 History: Shortness of breath. Comparison: August 16, 2017. Findings: Decreased inspiration is seen with an increase in bibasilar atelectasis. No pleural effusion or pneumothorax is seen. The heart size and mediastinum and pulmonary vasculature and both yane are stable. IMPRESSION: Severe decreased inspiration with increasing bibasilar atelectasis.
[2017-08-17] MEDS: LURASIDONE 40 MG TABLET. PO SCH (18:12)
[2017-08-17] MEDS: ENOXAPARIN 40 MG/0.4 ML SYRINGE. SQ SCH (18:13)
--- NOTE | 2017-08-17 19:19 | CONS ---
DATE OF CONSULTATION: 08/17/2017 ATTENDING PHYSICIAN: Urban Reardon MD. REASON FOR CONSULTATION: The patient seen in pulmonary consultation at the request of Dr. Reardon for hypercapnic-hypoxemic respiratory failure. HISTORY OF PRESENT ILLNESS: The patient is a 66-year-old that resides at home by herself. She has a history of bipolar, schizophrenia, chronic pain. She was in more pain, was taking her pain medication. She became slightly confused, did not feel good. She was weak. She called EMS. Upon EMS arrival, they found her to have saturations of 70%. The patient was given oxygen supplementation and transferred to the Emergency Department. In the Emergency Department, on 2 liters per nasal cannula, she had a pH of 7.20, PaCO2 of 97, pO2 145. She was placed on BiPAP. Slowly her arterial blood gas improved. This morning, it was 7.44, PaCO2 of 42, PaO2 of 92 with bicarb of 28. The patient is currently awake, alert, following command. She has never smoked. There is no history of asthma or COPD. She does not wear oxygen at home. She has a cough mostly productive of some clear sputum. No nausea, vomiting, diarrhea in the past several days. She had a chest x-ray, which did not reveal any acute infiltrates. CT abdomen and pelvis revealed bibasilar lung consolidation, right greater than left. PAST MEDICAL HISTORY: Chronic pain syndrome, hyperlipidemia, hypertension, migraine, bipolar disorder, schizophrenia, osteoporosis. PAST SURGICAL HISTORY: Status post tonsillectomy, hysterectomy. FAMILY HISTORY: Hypertension. ALLERGIES: No known drug allergies. HOME MEDICATION: The patient was utilizing Lortab, gabapentin 300 t.i.d. She was also on morphine sulfate tablet p.r.n. 15 mg, temazepam 30 mg. CURRENT MEDICATION: List was reviewed. Please see the MRAD. REVIEW OF SYSTEMS: As indicated above. Otherwise, a 10-point system was reviewed and negative. PHYSICAL EXAMINATION: GENERAL: The patient was in the Intensive Care Unit, awake, alert, following commands, was not complaining of any discomfort. She is currently on 2 liters of oxygen supplementation. HEENT: Eyes: The sclerae were nonicteric. NECK: Jugular venous distention was not elevated. No lymphadenopathy. CHEST: Full expansion. LUNGS: Poor airway flow with no wheezes. CARDIOVASCULAR: Regular rate and rhythm with S1, S2, no S3. ABDOMEN: Soft, nontender, nondistended. EXTREMITIES: No clubbing, cyanosis. Minimal edema. NEUROLOGIC: The patient was awake, alert, following commands. A detailed neuro exam was not performed. LABORATORY DATA: Reviewed. Chest x-ray was likewise reviewed. Right hemidiaphragm was elevated. There was marked distention of the bowel on chest x-ray. CT abdomen and pelvis was reviewed. There is basilar consolidation, right greater than left. LABORATORY DATA: Reviewed. White count was normal, hemoglobin and hematocrit noted. Electrolytes were noted. Troponin was elevated. Serology was negative for influenza. UA was noted. Toxicology screen was negative. IMPRESSION: 1. Acute hypoxemic-hypercapnic respiratory failure. 2. Metabolic encephalopathy, acute, present upon admission. 3. Possible pneumonia, gram-negative, gram-positive. 4. Hyponatremia. 5. Chronic pain syndrome. 6. Hypotension, possible sepsis. 7. Bipolar disorder. 8. Schizophrenia. PLAN: 1. The patient has improved with the utilization of BiPAP. 2. She has been weaned off of pressors. 3. Continue IV fluids. 4. Empiric antibiotics. 5. P.r.n. BiPAP. 6. DVT and GI prophylaxis. Dr. Reardon, I do appreciate the privilege in sharing in the patient's care. Total cumulative critical care time of 45 minutes. ZANDER LOPEZ MD DR: MIRIAN/ankit JOB#: [id number] / [id number]
[2017-08-17] MEDS: TEMAZEPAM 15 MG CAPSULE PO SCH (20:48)
[2017-08-17] MEDS: ATORVASTATIN CALCIUM 40 MG TABLET. PO SCH (20:48)
[2017-08-17] MEDS: POLYETHYLENE GLYCOL 3350 17 GM PACKET. PO PRN (20:50)
[2017-08-17] MEDS: FAMOTIDINE 20 MG/2 ML VIAL IVP SCH (20:50)
[2017-08-18] VITALS (16 sets, daily range): BP systolic 87–154; BP diastolic 52–79
[2017-08-18] MEDS: VANCOMYCIN 1 GM in IV DEXTROSE 5% 250 ML IV SCH ×2 (03:45→17:11)
[2017-08-18] MEDS: VANCOMYCIN PER PHARMACY MC PRN ×2 (04:04→11:31)
[2017-08-18] MEDS: CEFEPIME HCL IV Push 2 GM VIAL. IVP SCH ×3 (05:47→21:41)
[2017-08-18] MEDS: IPRATRPIUM/ALBUTEROL 0.5/2.5MG 3 ML NEBU. NEB SCH ×4 (07:45→20:00)
[2017-08-18] MEDS: POTASSIUM CHLORIDE 20 MEQ TABLET.ER. PO SCH (08:00)
[2017-08-18] MEDS: buPROPion XL 150 MG TAB.ER.24H. PO SCH (08:45)
[2017-08-18] MEDS: clonazePAM 1 MG TABLET PO SCH ×2 (08:45→21:36)
[2017-08-18] MEDS: SENNOSIDES 8.6 MG TABLET PO SCH (08:45)
[2017-08-18] MEDS: LOSARTAN POTASSIUM 50 MG TABLET. PO SCH (08:46)
[2017-08-18] MEDS: GABAPENTIN 300 MG CAPSULE. PO SCH ×3 (08:46→21:35)
[2017-08-18] MEDS: CALCIUM CARBONATE 500 MG TABLET PO SCH (08:46)
[2017-08-18] MEDS: amLODIPine BESYLATE 10 MG TABLET PO SCH (08:47)
[2017-08-18] MEDS: hydroCHLOROthiazide 25 MG TABLET PO SCH (09:00)
--- NOTE | 2017-08-18 10:51 | PDOC ---
CARDIO Progress Notes Date and Time Date of Service 08/18/2017 Time of Evaluation 1040 Subjective Subjective: No Chest Pain, No shortness of breath, No Palpitations, No Dizziness, Other (feels better today) Vitals Vitals Vital Signs Date Time Temp Pulse Resp B/P (MAP) Pulse Ox O2 Delivery O2 Flow Rate FiO2 08/18/17 10:00 83 22 154/70 (98) 96 Nasal Cannula 2.0 08/18/17 08:00 98.4 98.4 Weight Weight [ ] Laboratory Labs Laboratory Tests Test 08/18/17 02:45 Vancomycin Level Trough 8.3 mcg/mL (10.0-20.0) Vancomycin Last Dose Date [id number] Vancomycin Last Dose Time 1500 Microbiology Micro Microbiology 08/16/17 Blood Culture - Preliminary, Resulted NO GROWTH AFTER 1 DAY Physical Exam HEENT: Neck Supple W Full Motion Chest: Symmetric LUNGS: Clear to Auscultation Heart: S1S2, RRR (SR) Abdomen: Soft N/T Extremities: No Edema, No Calf Tenderness Neurology: alert, oriented, follow commands Assessment Assessment 1. Acute respiratory failure: CO2 initially at 97. Mainly related to Opioids/ benzos with psych meds. Possible pneumonia per pulmonary. 2. Elevated troponin: Peaked at 0.16, demand mediated, limited echo no significant changes by comparison. CP free. 3. Chronic back pain/Chronic pain syndrome/chronic opioid use Recommendations 1. May transfer to med surg 2. Again Discussed pain control and will defer adjustment to PCP 3. No further cardiac recommendation BRANDYN ABRAMS APRN Aug 18, 2017 10:51
--- NOTE | 2017-08-18 10:54 | CARD ---
APPROVED REPORT EXAM: Two-dimensional and M-mode echocardiogram with Doppler and color Doppler. Other Information Quality : Good INDICATION LV Function: 2D DIMENSIONS Left Atrium(2D)3.6 (1.6-4.0cm)IVSd1.0 (0.7-1.1cm) Aortic Root(2D)2.7 (2.0-3.7cm)LVDd3.6 (3.9-5.9cm) PWd1.1 (0.7-1.1cm)LVDs2.6 (2.5-4.0cm) FS (%) 29.2 %SV31.6 ml LVEF(%)56.9 (>50%) Tricuspid Valve TR P. [id number] [id number] TR Peak [id number] LEFT VENTRICLE The left ventricle is normal size. There is normal left ventricular wall thickness. Left ventricle sy stolic function is normal. The Ejection Fraction is 55-60%. There is normal LV segmental wall motion. RIGHT VENTRICLE The right ventricle is normal size. The right ventricular systolic function is normal. ATRIA The left atrium size is normal. The right atrium size is normal. TRICUSPID VALVE The tricuspid valve is normal in structure and function. Doppler and Color Flow revealed mild tricusp id regurgitation. There is no pulmonary hypertension. The PA pressure was estimated at 27 mmHg. PULMONIC VALVE The pulmonary valve is normal in structure and function. Doppler and Color Flow revealed trace pulmon ic valvular regurgitation. There is no pulmonic valvular stenosis. GREAT VESSELS The aortic root is normal in size. The ascending aorta is normal in size. The IVC is normal in size a nd collapses >50% with inspiration. PERICARDIAL EFFUSION There is no pleural effusion. There is no evidence of significant pericardial effusion. Critical Notification Critical Value: No <Conclusion> Limited echo to assess LV systolic function. Left ventricle systolic function is normal. The Ejection Fraction is 55-60%. There is normal LV segmental wall motion. There is no evidence of significant pericardial effusion.
[2017-08-18] MEDS ORDERED: MORPHINE SULFATE 4 MG/ML DISP.SYRIN. IV PRN (11:15)
[2017-08-18] MEDS: LUBIPROSTONE 8 MCG CAPSULE PO SCH ×2 (12:03→17:10)
--- NOTE | 2017-08-18 12:18 | PDOC ---
PULMONARY PROGRESS NOTES Vitals Vital Signs Date Time Temp Pulse Resp B/P (MAP) Pulse Ox O2 Delivery O2 Flow Rate FiO2 08/18/17 12:00 98.5 87 14 90/55 (67) 96 Nasal Cannula 2.0 98.5 Lungs: Clear Cardiovascular: S1, S2 Labs Laboratory Tests Test 08/16/17 13:15 08/16/17 15:00 08/16/17 15:22 08/16/17 16:25 O2 Saturation 98 % (92-99) 90 % (92-99) Arterial Blood pH 7.20 (7.35-7.45) 7.23 (7.35-7.45) Arterial Blood pCO2 at Patient Temp 97 mmHg (35-46) 87 mmHg (35-46) Arterial Blood pO2 at Patient Temp 145 mmHg (65-108) 65 mmHg (65-108) Arterial Blood HCO3 37 mmol/L (21-28) 36 mmol/L (21-28) Arterial Blood Base Excess 6 mmol/L (-3-3) 6 mmol/L (-3-3) FiO2 2 lpm nc 30 Nasal Screen MRSA (PCR) Negative (Negative) Influenza Type A Antigen Negative (NEGATIVE) Influenza Type B Antigen Negative (NEGATIVE) Lactic Acid Level < 0.3 mmol/L (0.4-2.0) Test 08/16/17 17:05 08/16/17 17:40 08/16/17 20:50 08/17/17 02:45 O2 Saturation 88 % (92-99) Arterial Blood pH 7.22 (7.35-7.45) Arterial Blood pCO2 at Patient Temp 80 mmHg (35-46) Arterial Blood pO2 at Patient Temp 61 mmHg (65-108) Arterial Blood HCO3 32 mmol/L (21-28) Arterial Blood Base Excess 3 mmol/L (-3-3) FiO2 25 Body Fluid Culture (LAB) (.) Urine Legionella Antigen Negative (Negative) Streptococcus pneumoniae Antigen Negative (Negative) Organism Identification (LAB) (.) TRUNG Specimen Source Urine (.) Troponin I Quantitative 0.161 ng/mL (0.000-0.055) 0.141 ng/mL (0.000-0.055) White Blood Count 6.3 x10^3/uL (4.0-11.0) Red Blood Count 3.90 x10^6/uL (3.50-5.40) Hemoglobin 11.4 g/dL (12.0-15.5) Hematocrit 34.4 % (36.0-47.0) Mean Corpuscular Volume 88 fL (79-100) Mean Corpuscular Hemoglobin 29 pg (25-35) Mean Corpuscular Hemoglobin Concent 33 g/dL (31-37) Red Cell Distribution Width 15.6 % (11.5-14.5) Platelet Count 158 x10^3/uL (140-400) Neutrophils (%) (Auto) 67 % (31-73) Lymphocytes (%) (Auto) 25 % (24-48) Monocytes (%) (Auto) 7 % (0-9) Eosinophils (%) (Auto) 1 % (0-3) Basophils (%) (Auto) 1 % (0-3) Neutrophils # (Auto) 4.2 x10^3uL (1.8-7.7) Lymphocytes # (Auto) 1.5 x10^3/uL (1.0-4.8) Monocytes # (Auto) 0.4 x10^3/uL (0.0-1.1) Eosinophils # (Auto) 0.0 x10^3/uL (0.0-0.7) Basophils # (Auto) 0.0 x10^3/uL (0.0-0.2) Sodium Level 138 mmol/L (136-145) Potassium Level 3.4 mmol/L (3.5-5.1) Chloride Level 101 mmol/L (98-107) Carbon Dioxide Level 31 mmol/L (21-32) Anion Gap 6 (6-14) Blood Urea Nitrogen 11 mg/dL (7-20) Creatinine 0.4 mg/dL (0.6-1.0) Estimated GFR (Cockcroft-Gault) 159.7 Glucose Level 81 mg/dL (70-99) Calcium Level 7.7 mg/dL (8.5-10.1) Test 08/17/17 08:15 08/18/17 02:45 O2 Saturation 97 % (92-99) Arterial Blood pH 7.44 (7.35-7.45) Arterial Blood pCO2 at Patient Temp 42 mmHg (35-46) Arterial Blood pO2 at Patient Temp 92 mmHg (65-108) Arterial Blood HCO3 28 mmol/L (21-28) Arterial Blood Base Excess 4 mmol/L (-3-3) FiO2 25 Vancomycin Level Trough 8.3 mcg/mL (10.0-20.0) Vancomycin Last Dose Date Vancomycin Last Dose Time 1500 Laboratory Tests Test 08/18/17 02:45 Vancomycin Level Trough 8.3 mcg/mL (10.0-20.0) Vancomycin Last Dose Date Vancomycin Last Dose Time 1500 Medications Active Scripts Medications Dose Route/Sig Max Daily Dose Days Date Category Calcium (Calcium Carbonate) 600 Mg Tablet 600 Mg PO DAILY 08/16/17 Reported Temazepam 30 Mg Capsule 1 Cap PO QHS 08/16/17 Reported Senna (Sennosides) 8.6 Mg Tablet 8.6 Mg PO 08/16/17 Reported Gabapentin 300 Mg Capsule 300 Mg PO TID 08/16/17 Reported Tizanidine Hcl 4 Mg Tablet 4 Mg PO PRN Q8HRS PRN 02/15/17 Reported Amitiza (Lubiprostone) 24 Mcg Capsule 24 Mcg PO BID 02/15/17 Reported Morphine Sulfate 15 Mg Tablet 1 Tab PO PRN Q6-8HRS PRN 02/13/17 Rx Naproxen 375 Mg Tablet 375 Mg PO BID PRN 12/13/16 Rx Stool Softener (Docusate Sodium) 100 Mg Capsule 100 Mg PO DAILY 09/19/15 Reported Melatonin 5 Mg Tablet (Melatonin/Pyridoxine Hcl (B6)) 1 Each Tablet 1 Each PO HS 09/19/15 Reported Latuda (Lurasidone Hcl) 120 Mg Tablet 120 Mg PO DAILYWSUP 09/19/15 Reported Bupropion Xl (Bupropion Hcl) 300 Mg Tab.er.24h 300 Mg PO DAILY 09/19/15 Reported Alendronate Sodium 70 Mg Tablet 70 Mg PO WEEKLY 09/19/15 Reported Ibuprofen 600 Mg Tablet 600 Mg PO Q6H PRN 09/19/15 Reported Hydrocodone-Apap 5-325 (Hydrocodone Bit/Acetaminophen) 1 Each Tablet 1 Tab PO PRN Q6HRS PRN 09/19/15 Reported Vitamin D-3 (Cholecalciferol (Vitamin D3)) 2,000 Unit Tablet 5,000 Unit PO WEEKLY 09/19/15 Reported Losartan Potassium 100 Mg Tablet 50 Mg PO DAILY 09/19/15 Reported Amlodipine Besylate 10 Mg Tablet 10 Mg PO DAILY 09/19/15 Reported Atorvastatin Calcium 40 Mg Tablet 40 Mg PO DAILY 09/19/15 Reported Hydrochlorothiazide Capsule (Hydrochlorothiazide) 12.5 Mg Capsule 25 Mg PO DAILY 09/19/15 Reported Potassium Chloride 20 Meq Tab.er.prt 20 Meq PO DAILY 09/19/15 Reported Maxalt (Rizatriptan Benzoate) 10 Mg Tablet 10 Mg PO PRN PRN 09/19/15 Reported Clonazepam 1 Mg Tablet 1 Mg PO BID 11/25/13 Reported Impression . 1. Acute hypoxemic-hypercapnic respiratory failure. 2. Metabolic encephalopathy, acute, present upon admission. 3. Possible pneumonia, gram-negative, gram-positive. 4. Hyponatremia. 5. Chronic pain syndrome. 6. Hypotension, possible sepsis. 7. Bipolar disorder. 8. Schizophrenia. Plan . 1. The patient has improved with the utilization of BiPAP. 2. She has been weaned off of pressors. 3. Continue IV fluids. 4. Empiric antibiotics. 5. P.r.n. BiPAP. 6. DVT and GI prophylaxis. ZANDER LOPEZ MD Aug 18, 2017 12:18
--- NOTE | 2017-08-18 12:49 | PDOC ---
PROGRESS NOTES Chief Complaint Chief Complaint AMS, metabolic encephalopathy acute hypoxic and hypercapnic resp failure possible HAP hyponatremia, 2/2 low po intake? sepsis chronic back pain HTN , NOW hypotension hld schizophrenia BIPolar History of Present Illness History of Present Illness Pt seen in ICU sitting in bedside chair. States she "feels better" today, appears tired but in NAD. Pt has restarted her home meds and has no c/o today. States subjective improvement re: SOB, but CXR done this AM indicated increased bibasilar atelectasis. Labs improving today, and sats remain stable on current tx regimen Pulmonology has been following and ok'ed a trasfer out of ICU to medical floor. Vitals Vitals Vital Signs Date Time Temp Pulse Resp B/P (MAP) Pulse Ox O2 Delivery O2 Flow Rate FiO2 08/18/17 12:00 98.5 87 14 90/55 (67) 96 Nasal Cannula 2.0 98.5 Physical Exam General: Alert, Oriented X3, Cooperative, No acute distress Heart: Regular rate (SR), Normal S1, Normal S2, Other (2/6 systolic murmur to LLS border) Lungs: Clear Extremities: No cyanosis, Other (1+ bilateral LE pitting edema) Skin: No breakdown, No significant lesion Labs LABS Laboratory Tests Test 08/18/17 02:45 Vancomycin Level Trough 8.3 mcg/mL (10.0-20.0) Vancomycin Last Dose Date [id number] Vancomycin Last Dose Time 1500 Review of Systems Review of Systems AOCx3, NAD. RRR no M. Lungs CTAB. No apparent SOA during conversation. No cough. Assessment and Plan Assessmemt and Plan Problems Medical Problems: (1) Altered mental status Status: Acute (2) Respiratory failure with hypoxia and hypercapnia Status: Acute AMS, metabolic encephalopathy acute hypoxic and hypercapnic resp failure possible HAP hyponatremia, 2/2 low po intake? sepsis chronic back pain HTN , NOW hypotension hld schizophrenia BIPolar PLAN: Transfer to cardiology floor Continue nebs, O2 Continue IV Fluids Continue recheck labs Continue home meds Continue Vanc Continue routine CXR Problems: Comment Review of Relevant I have reviewed the following items brandie (where applicable) has been applied. Labs Laboratory Tests Test 08/16/17 13:15 08/16/17 15:00 08/16/17 15:22 08/16/17 16:25 O2 Saturation 98 % (92-99) 90 % (92-99) Arterial Blood pH 7.20 (7.35-7.45) 7.23 (7.35-7.45) Arterial Blood pCO2 at Patient Temp 97 mmHg (35-46) 87 mmHg (35-46) Arterial Blood pO2 at Patient Temp 145 mmHg (65-108) 65 mmHg (65-108) Arterial Blood HCO3 37 mmol/L (21-28) 36 mmol/L (21-28) Arterial Blood Base Excess 6 mmol/L (-3-3) 6 mmol/L (-3-3) FiO2 2 lpm nc 30 Nasal Screen MRSA (PCR) Negative (Negative) Influenza Type A Antigen Negative (NEGATIVE) Influenza Type B Antigen Negative (NEGATIVE) Lactic Acid Level < 0.3 mmol/L (0.4-2.0) Test 08/16/17 17:05 08/16/17 17:40 08/16/17 20:50 08/17/17 02:45 O2 Saturation 88 % (92-99) Arterial Blood pH 7.22 (7.35-7.45) Arterial Blood pCO2 at Patient Temp 80 mmHg (35-46) Arterial Blood pO2 at Patient Temp 61 mmHg (65-108) Arterial Blood HCO3 32 mmol/L (21-28) Arterial Blood Base Excess 3 mmol/L (-3-3) FiO2 25 Body Fluid Culture (LAB) (.) Urine Legionella Antigen Negative (Negative) Streptococcus pneumoniae Antigen Negative (Negative) Organism Identification (LAB) (.) TRUNG Specimen Source Urine (.) Troponin I Quantitative 0.161 ng/mL (0.000-0.055) 0.141 ng/mL (0.000-0.055) White Blood Count 6.3 x10^3/uL (4.0-11.0) Red Blood Count 3.90 x10^6/uL (3.50-5.40) Hemoglobin 11.4 g/dL (12.0-15.5) Hematocrit 34.4 % (36.0-47.0) Mean Corpuscular Volume 88 fL (79-100) Mean Corpuscular Hemoglobin 29 pg (25-35) Mean Corpuscular Hemoglobin Concent 33 g/dL (31-37) Red Cell Distribution Width 15.6 % (11.5-14.5) Platelet Count 158 x10^3/uL (140-400) Neutrophils (%) (Auto) 67 % (31-73) Lymphocytes (%) (Auto) 25 % (24-48) Monocytes (%) (Auto) 7 % (0-9) Eosinophils (%) (Auto) 1 % (0-3) Basophils (%) (Auto) 1 % (0-3) Neutrophils # (Auto) 4.2 x10^3uL (1.8-7.7) Lymphocytes # (Auto) 1.5 x10^3/uL (1.0-4.8) Monocytes # (Auto) 0.4 x10^3/uL (0.0-1.1) Eosinophils # (Auto) 0.0 x10^3/uL (0.0-0.7) Basophils # (Auto) 0.0 x10^3/uL (0.0-0.2) Sodium Level 138 mmol/L (136-145) Potassium Level 3.4 mmol/L (3.5-5.1) Chloride Level 101 mmol/L (98-107) Carbon Dioxide Level 31 mmol/L (21-32) Anion Gap 6 (6-14) Blood Urea Nitrogen 11 mg/dL (7-20) Creatinine 0.4 mg/dL (0.6-1.0) Estimated GFR (Cockcroft-Gault) 159.7 Glucose Level 81 mg/dL (70-99) Calcium Level 7.7 mg/dL (8.5-10.1) Test 08/17/17 08:15 08/18/17 02:45 O2 Saturation 97 % (92-99) Arterial Blood pH 7.44 (7.35-7.45) Arterial Blood pCO2 at Patient Temp 42 mmHg (35-46) Arterial Blood pO2 at Patient Temp 92 mmHg (65-108) Arterial Blood HCO3 28 mmol/L (21-28) Arterial Blood Base Excess 4 mmol/L (-3-3) FiO2 25 Vancomycin Level Trough 8.3 mcg/mL (10.0-20.0) Vancomycin Last Dose Date Vancomycin Last Dose Time 1500 Laboratory Tests Test 08/18/17 02:45 Vancomycin Level Trough 8.3 mcg/mL (10.0-20.0) Vancomycin Last Dose Date Vancomycin Last Dose Time 1500 Microbiology 08/16/17 Blood Culture - Preliminary, Resulted NO GROWTH AFTER 1 DAY Medications Current Medications Iohexol (Omnipaque 300 Mg/ml) 75 ml 1X ONCE IV ; Start 08/16/17 at 12:45; Stop 08/16/17 at 12:46; Status DC Info (Do NOT chart on this entry -- for MONITORING) 1 each PRN DAILY PRN MC SEE COMMENTS; Start 08/16/17 at 13:00; Stop 08/18/17 at 12:59 Cefepime HCl 2 gm/ Dextrose 100 ml @ 200 mls/hr Q8HRS IV ; Start 08/16/17 at 22 :00; Status Cancel Vancomycin HCl (Vanco Per Pharmacy) 1 each PRN DAILY PRN MC SEE COMMENTS Last administered on 08/18/17 11:31; Start 08/16/17 at 14:15 Cefepime HCl (Maxipime) 2 gm 1X ONCE IVP Last administered on 08/16/17 14:32 ; Start 08/16/17 at 14:15; Stop 08/16/17 at 14:16; Status DC Vancomycin HCl 1.25 gm/Dextrose 250 ml @ 166.667 mls/hr 1X ONCE IV Last administered on 08/16/17 14:39; Start 08/16/17 at 14:15; Stop 08/16/17 at 15:44 ; Status DC Sodium Chloride 1,000 ml @ 1,380 mls/hr Q44M IV Last administered on 16:16; Start 08/16/17 at 14:34; Stop 08/16/17 at 15:34; Status DC Ondansetron HCl (Zofran) 4 mg PRN Q8HRS PRN IV NAUSEA/VOMITING; Start 08/16/17 at 14:45; Stop 08/17/17 at 01:29; Status DC Sodium Chloride 1,000 ml @ 125 mls/hr Q8H IV Last administered on 08/17/17 05 :03; Start 08/16/17 at 14:38; Stop 08/17/17 at 14:37; Status DC Albuterol/ Ipratropium (Duoneb) 3 ml RTQID NEB Last administered on 08/17/17 11:48; Start 08/16/17 at 16:00; Stop 08/17/17 at 15:59; Status DC Cefepime HCl (Maxipime) 2 gm Q8HRS IVP Last administered on 08/18/17 05:47; Start 08/16/17 at 22:00 Vancomycin HCl 750 mg/Dextrose 250 ml @ 250 mls/hr Q12H IV Last administered on 08/17/17 15:27; Start 08/17/17 at 03:00; Stop 08/18/17 at 03:37; Status DC Vancomycin HCl 1 each 1X ONCE MC Last administered on 08/18/17 02:30; Start 08/18/17 at 02:30; Stop 08/18/17 at 02:31; Status DC Sodium Chloride 1,000 ml @ 1,000 mls/hr 1X ONCE IV ; Start 08/16/17 at 15:15; Stop 08/16/17 at 16:14; Status DC Atorvastatin Calcium (Lipitor) 40 mg QHS PO Last administered on 08/17/17 20: 48; Start 08/16/17 at 21:00 Docusate Sodium (Colace) 100 mg DAILY PO ; Start 08/16/17 at 17:00; Stop at 17:00; Status DC Bupropion HCl (Wellbutrin Xl) 300 mg DAILY PO Last administered on 08/18/17 08 :45; Start 08/17/17 at 09:00 Vitamin D (Vitamin D3) 5,000 unit WEEKLY PO Last administered on 08/17/17 09: 08; Start 08/17/17 at 09:00 Lubiprostone (Amitiza) 24 mcg BIDWMEALS PO Last administered on 08/18/17 12:03 ; Start 08/16/17 at 17:00 Lurasidone HCl (Latuda) 120 mg DAILYWSUP PO Last administered on 08/17/17 18: 12; Start 08/16/17 at 17:00 Non-Formulary Medication 1 each HS PO ; Start 08/16/17 at 21:00; Status UNV Acetaminophen (Tylenol) 650 mg PRN Q6HRS PRN PO FEVER; Start 08/16/17 at 16:30 Ondansetron HCl (Zofran) 4 mg PRN Q6HRS PRN IV NAUSEA/VOMITING; Start 08/16/17 at 16:30 Morphine Sulfate 2 mg PRN Q2HR PRN IV PAIN; Start 08/16/17 at 16:30; Stop 08/18 at 11:12; Status DC Tramadol HCl (Ultram) 50 mg PRN Q6HRS PRN PO PAIN; Start 08/16/17 at 16:30 Hydralazine HCl (Apresoline Inj) 10 mg PRN Q4HRS PRN IVP ELEVATED BP, SEE COMMENTS; Start 08/16/17 at 16:30 Docusate Sodium (Colace) 100 mg PRN DAILY PRN PO CONSTIPATION; Start 08/16/17 at 16:30 Albuterol/ Ipratropium (Duoneb) 3 ml RTQID NEB Last administered on 08/18/17 11:42; Start 08/16/17 at 17:00 Albuterol Sulfate (Ventolin Neb Soln) 2.5 mg PRN Q2HR PRN NEB SHORTNESS OF BREATH; Start 08/16/17 at 16:30 Guaifenesin (Mucinex) 600 mg BID PO Last administered on 08/18/17 08:45; Start 08/16/17 at 21:00 Enoxaparin Sodium (Lovenox 40mg Syringe) 40 mg Q24H SQ Last administered on 18:13; Start 08/16/17 at 17:00 Famotidine (Pepcid) 20 mg QHS IVP Last administered on 08/17/17 20:50; Start 08/16/17 at 21:00 Sodium Bicarbonate 50 meq 1X ONCE IV Last administered on 08/16/17 17:42; Start 08/16/17 at 17:30; Stop 08/16/17 at 17:38; Status DC Norepinephrine Bitartrate 250 ml @ As Directed STK-MED ONCE IV ; Start at 23:03; Stop 08/16/17 at 23:04; Status DC Norepinephrine Bitartrate 250 ml @ 0 mls/hr CONT PRN IV SEE I/O RECORD Last administered on 08/17/17 02:05; Start 08/17/17 at 01:15 Amlodipine Besylate (Norvasc) 10 mg DAILY PO Last administered on 08/18/17 08: 47; Start 08/17/17 at 12:00 Clonazepam (KlonoPIN) 1 mg BID PO Last administered on 08/18/17 08:45; Start 08/17/17 at 12:00 Hydrochlorothiazide (Hydrodiuril) 25 mg DAILY PO Last administered on 12:48; Start 08/17/17 at 12:00 Acetaminophen/ Hydrocodone Bitart (Lortab 5/325) 1 tab PRN Q6HRS PRN PO PAIN; Start 08/17/17 at 11:30 Potassium Chloride (Klor-Con) 20 meq DAILYWBKFT PO Last administered on 08:00; Start 08/17/17 at 12:00 Sennosides (Senna) 8.6 mg DAILY PO Last administered on 08/18/17 08:45; Start 08/17/17 at 12:00 Temazepam (Restoril) 30 mg QHS PO Last administered on 08/17/17 20:48; Start 08/17/17 at 21:00 Tizanidine HCl (Zanaflex) 4 mg PRN Q8HRS PRN PO MUSCLE SPASMS; Start 08/17/17 at 11:30 Non-Formulary Medication 70 mg WEEKLY PO ; Start 08/24/17 at 09:00; Status UNV Calcium Carbonate/ Glycine (Oscal) 500 mg DAILY PO Last administered on 08:46; Start 08/17/17 at 12:00 Gabapentin (Neurontin) 300 mg TID PO Last administered on 08/18/17 08:46; Start 08/17/17 at 14:00 Ibuprofen (Motrin) 600 mg PRN Q6HRS PRN PO PAIN; Start 08/17/17 at 11:45 Losartan Potassium (Cozaar) 50 mg DAILY PO Last administered on 08/18/17 08:46 ; Start 08/17/17 at 12:00 Non-Formulary Medication 375 mg BID PRN PO PAIN; Start 08/17/17 at 11:30; Status UNV Sumatriptan Succinate (Imitrex) 100 mg PRN Q2HR PRN PO MIGRAINE HEADACHE; Start 08/17/17 at 11:45 Polyethylene Glycol (miraLAX PACKET) 17 gm PRN DAILY PRN PO CONSTIPATION Last administered on 08/17/17 20:50; Start 08/17/17 at 20:30 Vancomycin HCl 1 gm/Dextrose 250 ml @ 250 mls/hr Q12H IV Last administered on 08/18/17t 03:45; Start 08/18/17 at 04:00 Vancomycin HCl 1 each 1X ONCE MC ; Start 08/19/17 at 03:30; Stop 08/19/17 at 03 :31 Morphine Sulfate 2 mg PRN Q2HR PRN IV PAIN; Start 08/18/17 at 11:15 Active Scripts Active Morphine Sulfate 15 Mg Tablet 1 Tab PO PRN Q6-8HRS PRN Naproxen 375 Mg Tablet 375 Mg PO BID PRN Reported Calcium (Calcium Carbonate) 600 Mg Tablet 600 Mg PO DAILY Temazepam 30 Mg Capsule 1 Cap PO QHS Senna (Sennosides) 8.6 Mg Tablet 8.6 Mg PO Gabapentin 300 Mg Capsule 300 Mg PO TID Tizanidine Hcl 4 Mg Tablet 4 Mg PO PRN Q8HRS PRN Amitiza (Lubiprostone) 24 Mcg Capsule 24 Mcg PO BID Stool Softener (Docusate Sodium) 100 Mg Capsule 100 Mg PO DAILY Melatonin 5 Mg Tablet (Melatonin/Pyridoxine Hcl (B6)) 1 Each Tablet 1 Each PO HS Latuda (Lurasidone Hcl) 120 Mg Tablet 120 Mg PO DAILYWSUP Bupropion Xl (Bupropion Hcl) 300 Mg Tab.er.24h 300 Mg PO DAILY Alendronate Sodium 70 Mg Tablet 70 Mg PO WEEKLY Ibuprofen 600 Mg Tablet 600 Mg PO Q6H PRN Hydrocodone-Apap 5-325 (Hydrocodone Bit/Acetaminophen) 1 Each Tablet 1 Tab PO PRN Q6HRS PRN Vitamin D-3 (Cholecalciferol (Vitamin D3)) 2,000 Unit Tablet 5,000 Unit PO WEEKLY Losartan Potassium 100 Mg Tablet 50 Mg PO DAILY Amlodipine Besylate 10 Mg Tablet 10 Mg PO DAILY Atorvastatin Calcium 40 Mg Tablet 40 Mg PO DAILY Hydrochlorothiazide Capsule (Hydrochlorothiazide) 12.5 Mg Capsule 25 Mg PO DAILY Potassium Chloride 20 Meq Tab.er.prt 20 Meq PO DAILY Maxalt (Rizatriptan Benzoate) 10 Mg Tablet 10 Mg PO PRN PRN Clonazepam 1 Mg Tablet 1 Mg PO BID Vitals/I & O Vital Sign - Last 24 Hours 08/17/17 08/17/17 08/17/17 08/17/17 12:49 12:49 13:00 14:00 Pulse 99 100 74 88 Resp 18 16 B/P (MAP) 168/83 168/83 123/65 (84) 121/71 (88) Pulse Ox 100 99 O2 Delivery Nasal Cannula Nasal Cannula O2 Flow Rate 2.0 2.0 08/17/17 08/17/17 08/17/17 08/17/17 15:00 15:53 16:00 16:00 Temp 98.3 98.3 Pulse 88 97 Resp 16 22 B/P (MAP) 122/68 (86) 121/50 (73) Pulse Ox 99 100 O2 Delivery Nasal Cannula Nasal Cannula Nasal Cannula O2 Flow Rate 2.0 2.0 2.0 2.0 08/17/17 08/17/17 08/17/17 08/17/17 16:00 17:00 18:00 19:00 Pulse 99 91 92 Resp 20 18 23 B/P (MAP) 119/60 (79) 117/60 (79) 93/57 (69) Pulse Ox 100 100 100 O2 Delivery Nasal Cannula Nasal Cannula Nasal Cannula Nasal Cannula O2 Flow Rate 2.0 2.0 2.0 2.0 08/17/17 08/17/17 08/17/17 08/17/17 20:00 20:00 20:09 21:00 Temp 98.1 98.1 Pulse 97 97 Resp 28 22 B/P (MAP) 120/70 (87) 138/72 (94) Pulse Ox 99 100 100 O2 Delivery Nasal Cannula Nasal Cannula Nasal Cannula Nasal Cannula O2 Flow Rate 2.0 2.0 2.0 2.0 08/17/17 08/17/17 08/17/17 08/18/17 22:00 23:00 23:59 00:00 Temp 97.6 97.6 Pulse 82 75 72 Resp 19 17 18 B/P (MAP) 96/53 (67) 93/52 (66) 97/55 (69) Pulse Ox 100 100 100 O2 Delivery Nasal Cannula Nasal Cannula Nasal Cannula Nasal Cannula O2 Flow Rate 2.0 2.0 2.0 2.0 08/18/17 08/18/17 08/18/17 08/18/17 01:00 02:00 03:00 04:00 Pulse 76 70 72 Resp 16 19 22 B/P (MAP) 102/56 (71) 87/52 (64) 104/62 (76) Pulse Ox 100 100 100 O2 Delivery Nasal Cannula Nasal Cannula Nasal Cannula Nasal Cannula O2 Flow Rate 2.0 2.0 2.0 2.0 08/18/17 08/18/17 08/18/17 08/18/17 04:00 05:00 06:00 07:00 Temp 97.5 97.5 Pulse 68 71 80 81 Resp 16 16 23 21 B/P (MAP) 108/56 (73) 90/52 (65) 105/66 (79) 124/63 (83) Pulse Ox 100 100 98 100 O2 Delivery Nasal Cannula Nasal Cannula Nasal Cannula Nasal Cannula O2 Flow Rate 2.0 2.0 2.0 2.0 08/18/17 08/18/17 08/18/17 08/18/17 07:46 08:00 08:00 08:46 Temp 98.4 98.4 Pulse 83 91 Resp 19 B/P (MAP) 117/64 (81) 117/64 Pulse Ox 100 O2 Delivery Nasal Cannula Nasal Cannula Room Air O2 Flow Rate 2.0 2.0 08/18/17 08/18/17 08/18/17 08/18/17 08:47 09:00 10:00 11:00 Pulse 91 102 83 91 Resp 28 22 B/P (MAP) 117/64 135/72 (93) 154/70 (98) 97/56 (70) Pulse Ox 100 96 96 O2 Delivery Nasal Cannula Nasal Cannula Nasal Cannula O2 Flow Rate 2.0 2.0 1.0 08/18/17 08/18/17 11:42 12:00 Temp 98.5 98.5 Pulse 87 Resp 14 B/P (MAP) 90/55 (67) Pulse Ox 92 96 O2 Delivery Nasal Cannula Nasal Cannula O2 Flow Rate 1.0 2.0 Intake and Output 08/18/17 08/18/17 08/19/17 15:00 23:00 07:00 Output Total 350 ml Balance -350 ml Nutrition Consultation Dietary Evaluation: Recommendations by RD: Increase Calorie Intake Comments: REC cardiac diet w/textures per [employer] (dysphagia III w/thin liquids) Expected Outcomes/Goals: PO intake to meet > 75% est needs Interpretation of weight loss: >10% in 6 months Malnutrition Findings: Food and Nutrition Intake (Mod: <75% est energy req 7days Weight Status: Appropriate BRITNEY SUMMERS III DO Aug 18, 2017 12:49
[2017-08-18 15:22] LABS: CHOLESTEROL/HDL RATIO 2.2
[2017-08-18] MEDS: ENOXAPARIN 40 MG/0.4 ML SYRINGE. SQ SCH (17:10)
[2017-08-18] MEDS: LURASIDONE 40 MG TABLET. PO SCH (17:10)
[2017-08-18] MEDS: IBUPROFEN 600 MG TABLET. PO PRN (18:45)
[2017-08-18] MEDS: ATORVASTATIN CALCIUM 40 MG TABLET. PO SCH (21:35)
[2017-08-18] MEDS: FAMOTIDINE 20 MG/2 ML VIAL IVP SCH (21:35)
[2017-08-18] MEDS: TEMAZEPAM 15 MG CAPSULE PO SCH (21:36)
[2017-08-19 03:00] VITALS: BP 123/70
[2017-08-19 04:27] LABS: BASO % 1 % (0-3); EOS % 3 % (0-3); HEMATOCRIT 35.3 % (36.0-47.0); HEMOGLOBIN 11.5 g/dL (12.0-15.5); LYMPH # 1.5 x10^3/uL (1.0-4.8); LYMPH % 27 % (24-48); MEAN CORPUSCULAR HEMOGLOBIN 29 pg (25-35); MEAN CORPUSCULAR HGB CONC 33 g/dL (31-37); MEAN CORPUSCULAR VOLUME 88 fL (79-100); MONO % 8 % (0-9); NEUT % 62 % (31-73); PLATELET COUNT 165 x10^3/uL (140-400); RED BLOOD COUNT 4.01 x10^6/uL (3.50-5.40); RED CELL DISTRIBUTION WIDTH 15.9 % (11.5-14.5); WHITE BLOOD COUNT 5.5 x10^3/uL (4.0-11.0)
[2017-08-19] MEDS ORDERED: VANCOMYCIN 1.5 GM in IV DEXTROSE 5% 500 ML IV SCH (05:30)
[2017-08-19 05:37] LABS: CALCIUM 8.9 mg/dL (8.5-10.1); CREATININE 0.4 mg/dL (0.6-1.0); GFR 159.7; POTASSIUM 3.5 mmol/L (3.5-5.1)
[2017-08-19] MEDS: CEFEPIME HCL IV Push 2 GM VIAL. IVP SCH ×4 (05:45→22:15)
[2017-08-19] MEDS: VANCOMYCIN PER PHARMACY MC PRN (06:09)
[2017-08-19] MEDS: VANCOMYCIN 1 GM in IV DEXTROSE 5% 250 ML IV SCH ×2 (06:23→17:25)
[2017-08-19 07:00] VITALS: BP 121/70
[2017-08-19] MEDS: IPRATRPIUM/ALBUTEROL 0.5/2.5MG 3 ML NEBU. NEB SCH ×4 (07:59→19:16)
[2017-08-19] MEDS: hydroCHLOROthiazide 25 MG TABLET PO SCH (08:31)
[2017-08-19] MEDS: LUBIPROSTONE 8 MCG CAPSULE PO SCH ×2 (08:31→16:47)
[2017-08-19] MEDS: buPROPion XL 150 MG TAB.ER.24H. PO SCH (08:31)
[2017-08-19] MEDS: clonazePAM 1 MG TABLET PO SCH ×2 (08:32→21:42)
[2017-08-19] MEDS: POTASSIUM CHLORIDE 20 MEQ TABLET.ER. PO SCH (08:32)
[2017-08-19] MEDS: LOSARTAN POTASSIUM 50 MG TABLET. PO SCH (08:33)
[2017-08-19] MEDS: SENNOSIDES 8.6 MG TABLET PO SCH (08:33)
[2017-08-19] MEDS: GABAPENTIN 300 MG CAPSULE. PO SCH ×3 (08:33→21:42)
[2017-08-19] MEDS: CALCIUM CARBONATE 500 MG TABLET PO SCH (08:33)
[2017-08-19] MEDS: amLODIPine BESYLATE 10 MG TABLET PO SCH (08:33)
[2017-08-19] MEDS ORDERED: LEVO500T59 PO (09:16)
--- NOTE | 2017-08-19 09:19 | PDOC ---
PROGRESS NOTES Chief Complaint Chief Complaint AMS, metabolic encephalopathy acute hypoxic and hypercapnic resp failure possible HAP hyponatremia, 2/2 low po intake? sepsis chronic back pain HTN , NOW hypotension hld schizophrenia BIPolar Gen weakness History of Present Illness History of Present Illness Transferred from ICU thursday Doing ok Weak, PT recs SNU HAs been in SNU, just released few days ago, stayed there 2 weeks ([place]?) - willing to go back if covered by insurance KNown to me from [facility] for her multiple co morbidities First time on bipap though this admit Will need 6 MW if goes home with HH ON IV vanc and cefepime, no fevers, no white ct PLAN:" PO levaquin on dc if ok with pulmo 6 mW today SW to check if she has SNU days Dw her and pT at bedside Vitals Vitals Vital Signs Date Time Temp Pulse Resp B/P (MAP) Pulse Ox O2 Delivery O2 Flow Rate FiO2 08/19/17 08:34 94 Nasal Cannula 1.0 08/19/17 08:33 83 121/70 08/19/17 07:00 97.4 18 97.4 Physical Exam General: Alert, Oriented X3, Cooperative, No acute distress Heart: Regular rate (SR), Normal S1, Normal S2, Other (2/6 systolic murmur to LLS border) Lungs: Clear Extremities: No cyanosis, Other (1+ bilateral LE pitting edema) Skin: No breakdown, No significant lesion Labs LABS Laboratory Tests Test 08/19/17 03:20 White Blood Count 5.5 x10^3/uL (4.0-11.0) Red Blood Count 4.01 x10^6/uL (3.50-5.40) Hemoglobin 11.5 g/dL (12.0-15.5) Hematocrit 35.3 % (36.0-47.0) Mean Corpuscular Volume 88 fL (79-100) Mean Corpuscular Hemoglobin 29 pg (25-35) Mean Corpuscular Hemoglobin Concent 33 g/dL (31-37) Red Cell Distribution Width 15.9 % (11.5-14.5) Platelet Count 165 x10^3/uL (140-400) Neutrophils (%) (Auto) 62 % (31-73) Lymphocytes (%) (Auto) 27 % (24-48) Monocytes (%) (Auto) 8 % (0-9) Eosinophils (%) (Auto) 3 % (0-3) Basophils (%) (Auto) 1 % (0-3) Neutrophils # (Auto) 3.4 x10^3uL (1.8-7.7) Lymphocytes # (Auto) 1.5 x10^3/uL (1.0-4.8) Monocytes # (Auto) 0.5 x10^3/uL (0.0-1.1) Eosinophils # (Auto) 0.1 x10^3/uL (0.0-0.7) Basophils # (Auto) 0.0 x10^3/uL (0.0-0.2) Sodium Level 145 mmol/L (136-145) Potassium Level 3.5 mmol/L (3.5-5.1) Chloride Level 104 mmol/L (98-107) Carbon Dioxide Level 40 mmol/L (21-32) Anion Gap 1 (6-14) Blood Urea Nitrogen 12 mg/dL (7-20) Creatinine 0.4 mg/dL (0.6-1.0) Estimated GFR (Cockcroft-Gault) 159.7 Glucose Level 94 mg/dL (70-99) Calcium Level 8.9 mg/dL (8.5-10.1) Vancomycin Level Trough 14.3 mcg/mL (10.0-20.0) Vancomycin Last Dose Date 08/18/17 Vancomycin Last Dose Time 1600 Review of Systems Review of Systems weak, cough, no soa, cp, emesis or abd pain Assessment and Plan Assessmemt and Plan Problems Medical Problems: (1) Altered mental status Status: Acute (2) Respiratory failure with hypoxia and hypercapnia Status: Acute Problems: Comment Review of Relevant I have reviewed the following items brandie (where applicable) has been applied. Labs Laboratory Tests Test 08/18/17 02:45 08/19/17 03:20 Triglycerides Level 52 mg/dL (0-150) Cholesterol Level 143 mg/dL (0-200) LDL Cholesterol, Calculated 68 mg/dL (0-100) VLDL Cholesterol, Calculated 10 mg/dL (0-40) Non-HDL Cholesterol Calculated 78 mg/dL (0-129) HDL Cholesterol 65 mg/dL (40-60) Cholesterol/HDL Ratio 2.2 Vancomycin Level Trough 8.3 mcg/mL (10.0-20.0) 14.3 mcg/mL (10.0-20.0) Vancomycin Last Dose Date [id number] 08/18/17 Vancomycin Last Dose Time 1500 1600 White Blood Count 5.5 x10^3/uL (4.0-11.0) Red Blood Count 4.01 x10^6/uL (3.50-5.40) Hemoglobin 11.5 g/dL (12.0-15.5) Hematocrit 35.3 % (36.0-47.0) Mean Corpuscular Volume 88 fL (79-100) Mean Corpuscular Hemoglobin 29 pg (25-35) Mean Corpuscular Hemoglobin Concent 33 g/dL (31-37) Red Cell Distribution Width 15.9 % (11.5-14.5) Platelet Count 165 x10^3/uL (140-400) Neutrophils (%) (Auto) 62 % (31-73) Lymphocytes (%) (Auto) 27 % (24-48) Monocytes (%) (Auto) 8 % (0-9) Eosinophils (%) (Auto) 3 % (0-3) Basophils (%) (Auto) 1 % (0-3) Neutrophils # (Auto) 3.4 x10^3uL (1.8-7.7) Lymphocytes # (Auto) 1.5 x10^3/uL (1.0-4.8) Monocytes # (Auto) 0.5 x10^3/uL (0.0-1.1) Eosinophils # (Auto) 0.1 x10^3/uL (0.0-0.7) Basophils # (Auto) 0.0 x10^3/uL (0.0-0.2) Sodium Level 145 mmol/L (136-145) Potassium Level 3.5 mmol/L (3.5-5.1) Chloride Level 104 mmol/L (98-107) Carbon Dioxide Level 40 mmol/L (21-32) Anion Gap 1 (6-14) Blood Urea Nitrogen 12 mg/dL (7-20) Creatinine 0.4 mg/dL (0.6-1.0) Estimated GFR (Cockcroft-Gault) 159.7 Glucose Level 94 mg/dL (70-99) Calcium Level 8.9 mg/dL (8.5-10.1) Laboratory Tests Test 08/19/17 03:20 White Blood Count 5.5 x10^3/uL (4.0-11.0) Red Blood Count 4.01 x10^6/uL (3.50-5.40) Hemoglobin 11.5 g/dL (12.0-15.5) Hematocrit 35.3 % (36.0-47.0) Mean Corpuscular Volume 88 fL (79-100) Mean Corpuscular Hemoglobin 29 pg (25-35) Mean Corpuscular Hemoglobin Concent 33 g/dL (31-37) Red Cell Distribution Width 15.9 % (11.5-14.5) Platelet Count 165 x10^3/uL (140-400) Neutrophils (%) (Auto) 62 % (31-73) Lymphocytes (%) (Auto) 27 % (24-48) Monocytes (%) (Auto) 8 % (0-9) Eosinophils (%) (Auto) 3 % (0-3) Basophils (%) (Auto) 1 % (0-3) Neutrophils # (Auto) 3.4 x10^3uL (1.8-7.7) Lymphocytes # (Auto) 1.5 x10^3/uL (1.0-4.8) Monocytes # (Auto) 0.5 x10^3/uL (0.0-1.1) Eosinophils # (Auto) 0.1 x10^3/uL (0.0-0.7) Basophils # (Auto) 0.0 x10^3/uL (0.0-0.2) Sodium Level 145 mmol/L (136-145) Potassium Level 3.5 mmol/L (3.5-5.1) Chloride Level 104 mmol/L (98-107) Carbon Dioxide Level 40 mmol/L (21-32) Anion Gap 1 (6-14) Blood Urea Nitrogen 12 mg/dL (7-20) Creatinine 0.4 mg/dL (0.6-1.0) Estimated GFR (Cockcroft-Gault) 159.7 Glucose Level 94 mg/dL (70-99) Calcium Level 8.9 mg/dL (8.5-10.1) Vancomycin Level Trough 14.3 mcg/mL (10.0-20.0) Vancomycin Last Dose Date 08/18/17 Vancomycin Last Dose Time 1600 Microbiology 08/16/17 Blood Culture - Preliminary, Resulted NO GROWTH AFTER 2 DAYS Medications Current Medications Iohexol (Omnipaque 300 Mg/ml) 75 ml 1X ONCE IV ; Start 08/16/17 at 12:45; Stop 08/16/17 at 12:46; Status DC Info (Do NOT chart on this entry -- for MONITORING) 1 each PRN DAILY PRN MC SEE COMMENTS; Start 08/16/17 at 13:00; Stop 08/18/17 at 12:59; Status DC Cefepime HCl 2 gm/ Dextrose 100 ml @ 200 mls/hr Q8HRS IV ; Start 08/16/17 at 22 :00; Status Cancel Vancomycin HCl (Vanco Per Pharmacy) 1 each PRN DAILY PRN MC SEE COMMENTS Last administered on 08/19/17 06:09; Start 08/16/17 at 14:15 Cefepime HCl (Maxipime) 2 gm 1X ONCE IVP Last administered on 08/16/17 14:32 ; Start 08/16/17 at 14:15; Stop 08/16/17 at 14:16; Status DC Vancomycin HCl 1.25 gm/Dextrose 250 ml @ 166.667 mls/hr 1X ONCE IV Last administered on 08/16/17 14:39; Start 08/16/17 at 14:15; Stop 08/16/17 at 15:44 ; Status DC Sodium Chloride 1,000 ml @ 1,380 mls/hr Q44M IV Last administered on 16:16; Start 08/16/17 at 14:34; Stop 08/16/17 at 15:34; Status DC Ondansetron HCl (Zofran) 4 mg PRN Q8HRS PRN IV NAUSEA/VOMITING; Start 08/16/17 at 14:45; Stop 08/17/17 at 01:29; Status DC Sodium Chloride 1,000 ml @ 125 mls/hr Q8H IV Last administered on 08/17/17 05 :03; Start 08/16/17 at 14:38; Stop 08/17/17 at 14:37; Status DC Albuterol/ Ipratropium (Duoneb) 3 ml RTQID NEB Last administered on 08/17/17 11:48; Start 08/16/17 at 16:00; Stop 08/17/17 at 15:59; Status DC Cefepime HCl (Maxipime) 2 gm Q8HRS IVP Last administered on 08/19/17 06:14; Start 08/16/17 at 22:00 Vancomycin HCl 750 mg/Dextrose 250 ml @ 250 mls/hr Q12H IV Last administered on 08/17/17 15:27; Start 08/17/17 at 03:00; Stop 08/18/17 at 03:37; Status DC Vancomycin HCl 1 each 1X ONCE MC Last administered on 08/18/17 02:30; Start 08/18/17 at 02:30; Stop 08/18/17 at 02:31; Status DC Sodium Chloride 1,000 ml @ 1,000 mls/hr 1X ONCE IV ; Start 08/16/17 at 15:15; Stop 08/16/17 at 16:14; Status DC Atorvastatin Calcium (Lipitor) 40 mg QHS PO Last administered on 08/18/17 21: 35; Start 08/16/17 at 21:00 Docusate Sodium (Colace) 100 mg DAILY PO ; Start 08/16/17 at 17:00; Stop at 17:00; Status DC Bupropion HCl (Wellbutrin Xl) 300 mg DAILY PO Last administered on 08/19/17 08 :31; Start 08/17/17 at 09:00 Vitamin D (Vitamin D3) 5,000 unit WEEKLY PO Last administered on 08/17/17 09: 08; Start 08/17/17 at 09:00 Lubiprostone (Amitiza) 24 mcg BIDWMEALS PO Last administered on 08/19/17 08:31 ; Start 08/16/17 at 17:00 Lurasidone HCl (Latuda) 120 mg DAILYWSUP PO Last administered on 08/18/17 17: 10; Start 08/16/17 at 17:00 Non-Formulary Medication 1 each HS PO ; Start 08/16/17 at 21:00; Status UNV Acetaminophen (Tylenol) 650 mg PRN Q6HRS PRN PO FEVER; Start 08/16/17 at 16:30 Ondansetron HCl (Zofran) 4 mg PRN Q6HRS PRN IV NAUSEA/VOMITING; Start 08/16/17 at 16:30 Morphine Sulfate 2 mg PRN Q2HR PRN IV PAIN; Start 08/16/17 at 16:30; Stop 08/18 at 11:12; Status DC Tramadol HCl (Ultram) 50 mg PRN Q6HRS PRN PO PAIN; Start 08/16/17 at 16:30 Hydralazine HCl (Apresoline Inj) 10 mg PRN Q4HRS PRN IVP ELEVATED BP, SEE COMMENTS; Start 08/16/17 at 16:30 Docusate Sodium (Colace) 100 mg PRN DAILY PRN PO CONSTIPATION; Start 08/16/17 at 16:30 Albuterol/ Ipratropium (Duoneb) 3 ml RTQID NEB Last administered on 08/19/17 07:59; Start 08/16/17 at 17:00 Albuterol Sulfate (Ventolin Neb Soln) 2.5 mg PRN Q2HR PRN NEB SHORTNESS OF BREATH; Start 08/16/17 at 16:30 Guaifenesin (Mucinex) 600 mg BID PO Last administered on 08/19/17 08:33; Start 08/16/17 at 21:00 Enoxaparin Sodium (Lovenox 40mg Syringe) 40 mg Q24H SQ Last administered on 17:10; Start 08/16/17 at 17:00 Famotidine (Pepcid) 20 mg QHS IVP Last administered on 08/18/17 21:35; Start 08/16/17 at 21:00 Sodium Bicarbonate 50 meq 1X ONCE IV Last administered on 08/16/17 17:42; Start 08/16/17 at 17:30; Stop 08/16/17 at 17:38; Status DC Norepinephrine Bitartrate 250 ml @ As Directed STK-MED ONCE IV ; Start at 23:03; Stop 08/16/17 at 23:04; Status DC Norepinephrine Bitartrate 250 ml @ 0 mls/hr CONT PRN IV SEE I/O RECORD Last administered on 08/17/17 02:05; Start 08/17/17 at 01:15; Stop 08/19/17 at 08:21 ; Status DC Amlodipine Besylate (Norvasc) 10 mg DAILY PO Last administered on 08/19/17 08: 33; Start 08/17/17 at 12:00 Clonazepam (KlonoPIN) 1 mg BID PO Last administered on 08/19/17 08:32; Start 08/17/17 at 12:00 Hydrochlorothiazide (Hydrodiuril) 25 mg DAILY PO Last administered on 08:31; Start 08/17/17 at 12:00 Acetaminophen/ Hydrocodone Bitart (Lortab 5/325) 1 tab PRN Q6HRS PRN PO PAIN; Start 08/17/17 at 11:30 Potassium Chloride (Klor-Con) 20 meq DAILYWBKFT PO Last administered on 08:32; Start 08/17/17 at 12:00 Sennosides (Senna) 8.6 mg DAILY PO Last administered on 08/19/17 08:33; Start 08/17/17 at 12:00 Temazepam (Restoril) 30 mg QHS PO Last administered on 08/18/17 21:36; Start 08/17/17 at 21:00 Tizanidine HCl (Zanaflex) 4 mg PRN Q8HRS PRN PO MUSCLE SPASMS; Start 08/17/17 at 11:30 Non-Formulary Medication 70 mg WEEKLY PO ; Start 08/24/17 at 09:00; Status UNV Calcium Carbonate/ Glycine (Oscal) 500 mg DAILY PO Last administered on 08:33; Start 08/17/17 at 12:00 Gabapentin (Neurontin) 300 mg TID PO Last administered on 08/19/17 08:33; Start 08/17/17 at 14:00 Ibuprofen (Motrin) 600 mg PRN Q6HRS PRN PO PAIN Last administered on 08/18/17 18:45; Start 08/17/17 at 11:45 Losartan Potassium (Cozaar) 50 mg DAILY PO Last administered on 08/19/17 08:33 ; Start 08/17/17 at 12:00 Non-Formulary Medication 375 mg BID PRN PO PAIN; Start 08/17/17 at 11:30; Status UNV Sumatriptan Succinate (Imitrex) 100 mg PRN Q2HR PRN PO MIGRAINE HEADACHE; Start 08/17/17 at 11:45 Polyethylene Glycol (miraLAX PACKET) 17 gm PRN DAILY PRN PO CONSTIPATION Last administered on 08/17/17 20:50; Start 08/17/17 at 20:30 Vancomycin HCl 1 gm/Dextrose 250 ml @ 250 mls/hr Q12H IV Last administered on 08/18/17 17:11; Start 08/18/17 at 04:00; Stop 08/19/17 at 05:12; Status DC Vancomycin HCl 1 each 1X ONCE MC Last administered on 08/19/17 03:30; Start 08/19/17 at 03:30; Stop 08/19/17 at 03:31; Status DC Morphine Sulfate 2 mg PRN Q2HR PRN IV PAIN; Start 08/18/17 at 11:15 Vancomycin HCl 1.5 gm/Dextrose 500 ml @ 250 mls/hr Q12H IV ; Start 08/19/17 at 05:30; Stop 08/19/17 at 05:56; Status DC Vancomycin HCl 1 gm/Dextrose 250 ml @ 250 mls/hr Q12H IV Last administered on 08/19/17 06:23; Start 08/19/17 at 06:00 Active Scripts Active Morphine Sulfate 15 Mg Tablet 1 Tab PO PRN Q6-8HRS PRN Naproxen 375 Mg Tablet 375 Mg PO BID PRN Reported Calcium (Calcium Carbonate) 600 Mg Tablet 600 Mg PO DAILY Temazepam 30 Mg Capsule 1 Cap PO QHS Senna (Sennosides) 8.6 Mg Tablet 8.6 Mg PO Gabapentin 300 Mg Capsule 300 Mg PO TID Tizanidine Hcl 4 Mg Tablet 4 Mg PO PRN Q8HRS PRN Amitiza (Lubiprostone) 24 Mcg Capsule 24 Mcg PO BID Stool Softener (Docusate Sodium) 100 Mg Capsule 100 Mg PO DAILY Melatonin 5 Mg Tablet (Melatonin/Pyridoxine Hcl (B6)) 1 Each Tablet 1 Each PO HS Latuda (Lurasidone Hcl) 120 Mg Tablet 120 Mg PO DAILYWSUP Bupropion Xl (Bupropion Hcl) 300 Mg Tab.er.24h 300 Mg PO DAILY Alendronate Sodium 70 Mg Tablet 70 Mg PO WEEKLY Ibuprofen 600 Mg Tablet 600 Mg PO Q6H PRN Hydrocodone-Apap 5-325 (Hydrocodone Bit/Acetaminophen) 1 Each Tablet 1 Tab PO PRN Q6HRS PRN Vitamin D-3 (Cholecalciferol (Vitamin D3)) 2,000 Unit Tablet 5,000 Unit PO WEEKLY Losartan Potassium 100 Mg Tablet 50 Mg PO DAILY Amlodipine Besylate 10 Mg Tablet 10 Mg PO DAILY Atorvastatin Calcium 40 Mg Tablet 40 Mg PO DAILY Hydrochlorothiazide Capsule (Hydrochlorothiazide) 12.5 Mg Capsule 25 Mg PO DAILY Potassium Chloride 20 Meq Tab.er.prt 20 Meq PO DAILY Maxalt (Rizatriptan Benzoate) 10 Mg Tablet 10 Mg PO PRN PRN Clonazepam 1 Mg Tablet 1 Mg PO BID Vitals/I & O Vital Sign - Last 24 Hours 08/18/17 08/18/17 08/18/17 08/18/17 10:00 11:00 11:42 12:00 Temp 98.5 98.5 Pulse 83 91 87 Resp 22 14 B/P (MAP) 154/70 (98) 97/56 (70) 90/55 (67) Pulse Ox 96 96 92 96 O2 Delivery Nasal Cannula Nasal Cannula Nasal Cannula Nasal Cannula O2 Flow Rate 2.0 1.0 1.0 2.0 08/18/17 08/18/17 08/18/17 08/18/17 15:10 15:15 19:00 20:00 Temp 97.5 99.1 97.5 99.1 Pulse 88 100 Resp 18 18 B/P (MAP) 118/68 (85) 135/74 (94) Pulse Ox 92 99 92 O2 Delivery Nasal Cannula Nasal Cannula Nasal Cannula Nasal Cannula O2 Flow Rate 1.0 2.0 2.0 08/18/17 08/18/17 08/19/17 08/19/17 20:01 22:57 03:00 07:00 Temp 97.7 97.9 97.4 97.7 97.9 97.4 Pulse 102 88 83 Resp 18 18 18 B/P (MAP) 135/79 (97) 123/70 (87) 121/70 (87) Pulse Ox 93 93 91 95 O2 Delivery Nasal Cannula Nasal Cannula Nasal Cannula Nasal Cannula O2 Flow Rate 1.0 2.0 2.0 08/19/17 08/19/17 08/19/17 08:33 08:33 08:34 Pulse 83 83 B/P (MAP) 121/70 121/70 Pulse Ox 94 O2 Delivery Nasal Cannula O2 Flow Rate 1.0 Intake and Output 08/19/17 08/19/17 08/20/17 15:00 23:00 07:00 Intake Total 720 ml Output Total 300 ml Balance 420 ml Nutrition Consultation Dietary Evaluation: Recommendations by RD: Increase Calorie Intake Comments: REC cardiac diet w/textures per [employer] (dysphagia III w/thin liquids) Expected Outcomes/Goals: PO intake to meet > 75% est needs Interpretation of weight loss: >10% in 6 months Malnutrition Findings: Food and Nutrition Intake (Mod: <75% est energy req 7days Weight Status: Appropriate TONI PRICE MD Aug 19, 2017 09:19
[2017-08-19 11:00] VITALS: BP 115/69
[2017-08-19 15:00] VITALS: BP 97/70
--- NOTE | 2017-08-19 16:30 | PDOC ---
PULMONARY PROGRESS NOTES Subjective PT FEELS BETTER LESS SOA Vitals Vital Signs Date Time Temp Pulse Resp B/P (MAP) Pulse Ox O2 Delivery O2 Flow Rate FiO2 08/19/17 15:59 Nasal Cannula 1.0 08/19/17 15:00 97.9 91 18 97/70 (79) 95 97.9 Lungs: Clear Cardiovascular: S1, S2 Labs Laboratory Tests Test 08/18/17 02:45 08/19/17 03:20 Triglycerides Level 52 mg/dL (0-150) Cholesterol Level 143 mg/dL (0-200) LDL Cholesterol, Calculated 68 mg/dL (0-100) VLDL Cholesterol, Calculated 10 mg/dL (0-40) Non-HDL Cholesterol Calculated 78 mg/dL (0-129) HDL Cholesterol 65 mg/dL (40-60) Cholesterol/HDL Ratio 2.2 Vancomycin Level Trough 8.3 mcg/mL (10.0-20.0) 14.3 mcg/mL (10.0-20.0) Vancomycin Last Dose Date [id number] 08/18/17 Vancomycin Last Dose Time 1500 1600 White Blood Count 5.5 x10^3/uL (4.0-11.0) Red Blood Count 4.01 x10^6/uL (3.50-5.40) Hemoglobin 11.5 g/dL (12.0-15.5) Hematocrit 35.3 % (36.0-47.0) Mean Corpuscular Volume 88 fL (79-100) Mean Corpuscular Hemoglobin 29 pg (25-35) Mean Corpuscular Hemoglobin Concent 33 g/dL (31-37) Red Cell Distribution Width 15.9 % (11.5-14.5) Platelet Count 165 x10^3/uL (140-400) Neutrophils (%) (Auto) 62 % (31-73) Lymphocytes (%) (Auto) 27 % (24-48) Monocytes (%) (Auto) 8 % (0-9) Eosinophils (%) (Auto) 3 % (0-3) Basophils (%) (Auto) 1 % (0-3) Neutrophils # (Auto) 3.4 x10^3uL (1.8-7.7) Lymphocytes # (Auto) 1.5 x10^3/uL (1.0-4.8) Monocytes # (Auto) 0.5 x10^3/uL (0.0-1.1) Eosinophils # (Auto) 0.1 x10^3/uL (0.0-0.7) Basophils # (Auto) 0.0 x10^3/uL (0.0-0.2) Sodium Level 145 mmol/L (136-145) Potassium Level 3.5 mmol/L (3.5-5.1) Chloride Level 104 mmol/L (98-107) Carbon Dioxide Level 40 mmol/L (21-32) Anion Gap 1 (6-14) Blood Urea Nitrogen 12 mg/dL (7-20) Creatinine 0.4 mg/dL (0.6-1.0) Estimated GFR (Cockcroft-Gault) 159.7 Glucose Level 94 mg/dL (70-99) Calcium Level 8.9 mg/dL (8.5-10.1) Laboratory Tests Test 08/19/17 03:20 White Blood Count 5.5 x10^3/uL (4.0-11.0) Red Blood Count 4.01 x10^6/uL (3.50-5.40) Hemoglobin 11.5 g/dL (12.0-15.5) Hematocrit 35.3 % (36.0-47.0) Mean Corpuscular Volume 88 fL (79-100) Mean Corpuscular Hemoglobin 29 pg (25-35) Mean Corpuscular Hemoglobin Concent 33 g/dL (31-37) Red Cell Distribution Width 15.9 % (11.5-14.5) Platelet Count 165 x10^3/uL (140-400) Neutrophils (%) (Auto) 62 % (31-73) Lymphocytes (%) (Auto) 27 % (24-48) Monocytes (%) (Auto) 8 % (0-9) Eosinophils (%) (Auto) 3 % (0-3) Basophils (%) (Auto) 1 % (0-3) Neutrophils # (Auto) 3.4 x10^3uL (1.8-7.7) Lymphocytes # (Auto) 1.5 x10^3/uL (1.0-4.8) Monocytes # (Auto) 0.5 x10^3/uL (0.0-1.1) Eosinophils # (Auto) 0.1 x10^3/uL (0.0-0.7) Basophils # (Auto) 0.0 x10^3/uL (0.0-0.2) Sodium Level 145 mmol/L (136-145) Potassium Level 3.5 mmol/L (3.5-5.1) Chloride Level 104 mmol/L (98-107) Carbon Dioxide Level 40 mmol/L (21-32) Anion Gap 1 (6-14) Blood Urea Nitrogen 12 mg/dL (7-20) Creatinine 0.4 mg/dL (0.6-1.0) Estimated GFR (Cockcroft-Gault) 159.7 Glucose Level 94 mg/dL (70-99) Calcium Level 8.9 mg/dL (8.5-10.1) Vancomycin Level Trough 14.3 mcg/mL (10.0-20.0) Vancomycin Last Dose Date 08/18/17 Vancomycin Last Dose Time 1600 Medications Active Scripts Medications Dose Route/Sig Max Daily Dose Days Date Category Calcium (Calcium Carbonate) 600 Mg Tablet 600 Mg PO DAILY 08/16/17 Reported Temazepam 30 Mg Capsule 1 Cap PO QHS 08/16/17 Reported Senna (Sennosides) 8.6 Mg Tablet 8.6 Mg PO 08/16/17 Reported Gabapentin 300 Mg Capsule 300 Mg PO TID 08/16/17 Reported Tizanidine Hcl 4 Mg Tablet 4 Mg PO PRN Q8HRS PRN 02/15/17 Reported Amitiza (Lubiprostone) 24 Mcg Capsule 24 Mcg PO BID 02/15/17 Reported Morphine Sulfate 15 Mg Tablet 1 Tab PO PRN Q6-8HRS PRN 02/13/17 Rx Naproxen 375 Mg Tablet 375 Mg PO BID PRN 12/13/16 Rx Stool Softener (Docusate Sodium) 100 Mg Capsule 100 Mg PO DAILY 09/19/15 Reported Melatonin 5 Mg Tablet (Melatonin/Pyridoxine Hcl (B6)) 1 Each Tablet 1 Each PO HS 09/19/15 Reported Latuda (Lurasidone Hcl) 120 Mg Tablet 120 Mg PO DAILYWSUP 09/19/15 Reported Bupropion Xl (Bupropion Hcl) 300 Mg Tab.er.24h 300 Mg PO DAILY 09/19/15 Reported Alendronate Sodium 70 Mg Tablet 70 Mg PO WEEKLY 09/19/15 Reported Ibuprofen 600 Mg Tablet 600 Mg PO Q6H PRN 09/19/15 Reported Hydrocodone-Apap 5-325 (Hydrocodone Bit/Acetaminophen) 1 Each Tablet 1 Tab PO PRN Q6HRS PRN 09/19/15 Reported Vitamin D-3 (Cholecalciferol (Vitamin D3)) 2,000 Unit Tablet 5,000 Unit PO WEEKLY 09/19/15 Reported Losartan Potassium 100 Mg Tablet 50 Mg PO DAILY 09/19/15 Reported Amlodipine Besylate 10 Mg Tablet 10 Mg PO DAILY 09/19/15 Reported Atorvastatin Calcium 40 Mg Tablet 40 Mg PO DAILY 09/19/15 Reported Hydrochlorothiazide Capsule (Hydrochlorothiazide) 12.5 Mg Capsule 25 Mg PO DAILY 09/19/15 Reported Potassium Chloride 20 Meq Tab.er.prt 20 Meq PO DAILY 09/19/15 Reported Maxalt (Rizatriptan Benzoate) 10 Mg Tablet 10 Mg PO PRN PRN 09/19/15 Reported Clonazepam 1 Mg Tablet 1 Mg PO BID 11/25/13 Reported Impression . 1. Acute hypoxemic-hypercapnic respiratory failure. 2. Metabolic encephalopathy, acute, present upon admission. 3. Possible pneumonia, gram-negative, gram-positive. 4. Hyponatremia. 5. Chronic pain syndrome. 6. Hypotension, possible sepsis. 7. Bipolar disorder. 8. Schizophrenia. Plan . AGREE WITH D/C IN AM ON LEVAQUIN 6 MIN WALK 1. The patient has improved with the utilization of BiPAP. 2. She has been weaned off of pressors. 3. Continue IV fluids. 4. Empiric antibiotics. 5. P.r.n. BiPAP. 6. DVT and GI prophylaxis. ZANDER LOPEZ MD Aug 19, 2017 16:29
[2017-08-19] MEDS: ENOXAPARIN 40 MG/0.4 ML SYRINGE. SQ SCH (16:47)
[2017-08-19] MEDS: LURASIDONE 40 MG TABLET. PO SCH (16:47)
[2017-08-19 19:00] VITALS: BP 134/78
[2017-08-19] MEDS: POLYETHYLENE GLYCOL 3350 17 GM PACKET. PO PRN (21:42)
[2017-08-19] MEDS: TEMAZEPAM 15 MG CAPSULE PO SCH (21:42)
[2017-08-19] MEDS: ATORVASTATIN CALCIUM 40 MG TABLET. PO SCH (21:42)
[2017-08-19] MEDS: FAMOTIDINE 20 MG/2 ML VIAL IVP SCH (21:49)
[2017-08-19 23:00] VITALS: BP 152/88
[2017-08-20 03:02] VITALS: BP 108/54
[2017-08-20 04:40] LABS: BASO % 1 % (0-3); EOS % 3 % (0-3); HEMATOCRIT 39.7 % (36.0-47.0); HEMOGLOBIN 12.8 g/dL (12.0-15.5); LYMPH # 1.4 x10^3/uL (1.0-4.8); LYMPH % 27 % (24-48); MEAN CORPUSCULAR HEMOGLOBIN 29 pg (25-35); MEAN CORPUSCULAR HGB CONC 32 g/dL (31-37); MEAN CORPUSCULAR VOLUME 89 fL (79-100); MONO % 10 % (0-9); NEUT % 59 % (31-73); PLATELET COUNT 184 x10^3/uL (140-400); RED BLOOD COUNT 4.47 x10^6/uL (3.50-5.40); RED CELL DISTRIBUTION WIDTH 15.8 % (11.5-14.5); WHITE BLOOD COUNT 5.3 x10^3/uL (4.0-11.0)
[2017-08-20 04:54] LABS: CALCIUM 9.4 mg/dL (8.5-10.1); CREATININE 0.5 mg/dL (0.6-1.0); GFR 123.4; POTASSIUM 3.6 mmol/L (3.5-5.1)
[2017-08-20] MEDS: CEFEPIME HCL IV Push 2 GM VIAL. IVP SCH ×3 (05:39→21:17)
[2017-08-20] MEDS: VANCOMYCIN 1 GM in IV DEXTROSE 5% 250 ML IV SCH ×2 (05:49→17:57)
[2017-08-20 07:10] VITALS: BP 97/61
[2017-08-20] MEDS: IPRATRPIUM/ALBUTEROL 0.5/2.5MG 3 ML NEBU. NEB SCH ×4 (07:54→19:25)
[2017-08-20] MEDS: buPROPion XL 150 MG TAB.ER.24H. PO SCH (08:44)
[2017-08-20] MEDS: POTASSIUM CHLORIDE 20 MEQ TABLET.ER. PO SCH (08:44)
[2017-08-20] MEDS: SENNOSIDES 8.6 MG TABLET PO SCH (08:45)
[2017-08-20] MEDS: CALCIUM CARBONATE 500 MG TABLET PO SCH (08:45)
[2017-08-20] MEDS: GABAPENTIN 300 MG CAPSULE. PO SCH ×3 (08:45→21:18)
[2017-08-20] MEDS: clonazePAM 1 MG TABLET PO SCH ×2 (08:45→21:18)
[2017-08-20] MEDS: POLYETHYLENE GLYCOL 3350 17 GM PACKET. PO PRN (08:45)
[2017-08-20] MEDS: LUBIPROSTONE 8 MCG CAPSULE PO SCH ×2 (08:47→17:00)
[2017-08-20] MEDS: amLODIPine BESYLATE 10 MG TABLET PO SCH (09:00)
[2017-08-20] MEDS: LOSARTAN POTASSIUM 50 MG TABLET. PO SCH (09:00)
[2017-08-20] MEDS: hydroCHLOROthiazide 25 MG TABLET PO SCH (09:00)
[2017-08-20 10:30] VITALS: BP 127/84
--- NOTE | 2017-08-20 12:36 | PDOC ---
PROGRESS NOTES Chief Complaint Chief Complaint AMS, metabolic encephalopathy acute hypoxic and hypercapnic resp failure possible HAP hyponatremia, 2/2 low po intake? sepsis chronic back pain HTN , NOW hypotension hld schizophrenia BIPolar Gen weakness HYPOTENSION History of Present Illness History of Present Illness Very weak NOw hypotensive - systolic 90s on 3 BP meds - needing to be held by RN today Ran out of SNU days, co pay $162 BUT NEEDS SNU PLAN: Dc HCTZ 25, Losartan 50 and Norvasc 10 NEed to keep today, not ready HIGH CHANCE OF BOUNCE BACK TO ER BEC OF SEVERE WEAKNESS, NEEDS MORE THAN JUST HH Vitals Vitals Vital Signs Date Time Temp Pulse Resp B/P (MAP) Pulse Ox O2 Delivery O2 Flow Rate FiO2 08/20/17 12:07 90 Room Air 08/20/17 10:30 96.8 89 18 127/84 (98) 1.0 96.8 Physical Exam General: Alert, Oriented X3, Cooperative, No acute distress Heart: Regular rate (SR), Normal S1, Normal S2, Other (2/6 systolic murmur to LLS border) Lungs: Clear Extremities: No cyanosis, Other (1+ bilateral LE pitting edema) Skin: No breakdown, No significant lesion Labs LABS Laboratory Tests Test 08/20/17 04:25 White Blood Count 5.3 x10^3/uL (4.0-11.0) Red Blood Count 4.47 x10^6/uL (3.50-5.40) Hemoglobin 12.8 g/dL (12.0-15.5) Hematocrit 39.7 % (36.0-47.0) Mean Corpuscular Volume 89 fL (79-100) Mean Corpuscular Hemoglobin 29 pg (25-35) Mean Corpuscular Hemoglobin Concent 32 g/dL (31-37) Red Cell Distribution Width 15.8 % (11.5-14.5) Platelet Count 184 x10^3/uL (140-400) Neutrophils (%) (Auto) 59 % (31-73) Lymphocytes (%) (Auto) 27 % (24-48) Monocytes (%) (Auto) 10 % (0-9) Eosinophils (%) (Auto) 3 % (0-3) Basophils (%) (Auto) 1 % (0-3) Neutrophils # (Auto) 3.1 x10^3uL (1.8-7.7) Lymphocytes # (Auto) 1.4 x10^3/uL (1.0-4.8) Monocytes # (Auto) 0.5 x10^3/uL (0.0-1.1) Eosinophils # (Auto) 0.1 x10^3/uL (0.0-0.7) Basophils # (Auto) 0.0 x10^3/uL (0.0-0.2) Sodium Level 142 mmol/L (136-145) Potassium Level 3.6 mmol/L (3.5-5.1) Chloride Level 99 mmol/L (98-107) Carbon Dioxide Level 42 mmol/L (21-32) Anion Gap 1 (6-14) Blood Urea Nitrogen 10 mg/dL (7-20) Creatinine 0.5 mg/dL (0.6-1.0) Estimated GFR (Cockcroft-Gault) 123.4 Glucose Level 98 mg/dL (70-99) Calcium Level 9.4 mg/dL (8.5-10.1) Review of Systems Review of Systems weak, no soa, no cp, no abd pain no diarrhea, no emesis Assessment and Plan Assessmemt and Plan Problems Medical Problems: (1) Altered mental status Status: Acute (2) Respiratory failure with hypoxia and hypercapnia Status: Acute Problems: Comment Review of Relevant I have reviewed the following items brandie (where applicable) has been applied. Labs Laboratory Tests Test 08/19/17 03:20 08/20/17 04:25 White Blood Count 5.5 x10^3/uL (4.0-11.0) 5.3 x10^3/uL (4.0-11.0) Red Blood Count 4.01 x10^6/uL (3.50-5.40) 4.47 x10^6/uL (3.50-5.40) Hemoglobin 11.5 g/dL (12.0-15.5) 12.8 g/dL (12.0-15.5) Hematocrit 35.3 % (36.0-47.0) 39.7 % (36.0-47.0) Mean Corpuscular Volume 88 fL (79-100) 89 fL (79-100) Mean Corpuscular Hemoglobin 29 pg (25-35) 29 pg (25-35) Mean Corpuscular Hemoglobin Concent 33 g/dL (31-37) 32 g/dL (31-37) Red Cell Distribution Width 15.9 % (11.5-14.5) 15.8 % (11.5-14.5) Platelet Count 165 x10^3/uL (140-400) 184 x10^3/uL (140-400) Neutrophils (%) (Auto) 62 % (31-73) 59 % (31-73) Lymphocytes (%) (Auto) 27 % (24-48) 27 % (24-48) Monocytes (%) (Auto) 8 % (0-9) 10 % (0-9) Eosinophils (%) (Auto) 3 % (0-3) 3 % (0-3) Basophils (%) (Auto) 1 % (0-3) 1 % (0-3) Neutrophils # (Auto) 3.4 x10^3uL (1.8-7.7) 3.1 x10^3uL (1.8-7.7) Lymphocytes # (Auto) 1.5 x10^3/uL (1.0-4.8) 1.4 x10^3/uL (1.0-4.8) Monocytes # (Auto) 0.5 x10^3/uL (0.0-1.1) 0.5 x10^3/uL (0.0-1.1) Eosinophils # (Auto) 0.1 x10^3/uL (0.0-0.7) 0.1 x10^3/uL (0.0-0.7) Basophils # (Auto) 0.0 x10^3/uL (0.0-0.2) 0.0 x10^3/uL (0.0-0.2) Sodium Level 145 mmol/L (136-145) 142 mmol/L (136-145) Potassium Level 3.5 mmol/L (3.5-5.1) 3.6 mmol/L (3.5-5.1) Chloride Level 104 mmol/L (98-107) 99 mmol/L (98-107) Carbon Dioxide Level 40 mmol/L (21-32) 42 mmol/L (21-32) Anion Gap 1 (6-14) 1 (6-14) Blood Urea Nitrogen 12 mg/dL (7-20) 10 mg/dL (7-20) Creatinine 0.4 mg/dL (0.6-1.0) 0.5 mg/dL (0.6-1.0) Estimated GFR (Cockcroft-Gault) 159.7 123.4 Glucose Level 94 mg/dL (70-99) 98 mg/dL (70-99) Calcium Level 8.9 mg/dL (8.5-10.1) 9.4 mg/dL (8.5-10.1) Vancomycin Level Trough 14.3 mcg/mL (10.0-20.0) Vancomycin Last Dose Date 08/18/17 Vancomycin Last Dose Time 1600 Laboratory Tests Test 08/20/17 04:25 White Blood Count 5.3 x10^3/uL (4.0-11.0) Red Blood Count 4.47 x10^6/uL (3.50-5.40) Hemoglobin 12.8 g/dL (12.0-15.5) Hematocrit 39.7 % (36.0-47.0) Mean Corpuscular Volume 89 fL (79-100) Mean Corpuscular Hemoglobin 29 pg (25-35) Mean Corpuscular Hemoglobin Concent 32 g/dL (31-37) Red Cell Distribution Width 15.8 % (11.5-14.5) Platelet Count 184 x10^3/uL (140-400) Neutrophils (%) (Auto) 59 % (31-73) Lymphocytes (%) (Auto) 27 % (24-48) Monocytes (%) (Auto) 10 % (0-9) Eosinophils (%) (Auto) 3 % (0-3) Basophils (%) (Auto) 1 % (0-3) Neutrophils # (Auto) 3.1 x10^3uL (1.8-7.7) Lymphocytes # (Auto) 1.4 x10^3/uL (1.0-4.8) Monocytes # (Auto) 0.5 x10^3/uL (0.0-1.1) Eosinophils # (Auto) 0.1 x10^3/uL (0.0-0.7) Basophils # (Auto) 0.0 x10^3/uL (0.0-0.2) Sodium Level 142 mmol/L (136-145) Potassium Level 3.6 mmol/L (3.5-5.1) Chloride Level 99 mmol/L (98-107) Carbon Dioxide Level 42 mmol/L (21-32) Anion Gap 1 (6-14) Blood Urea Nitrogen 10 mg/dL (7-20) Creatinine 0.5 mg/dL (0.6-1.0) Estimated GFR (Cockcroft-Gault) 123.4 Glucose Level 98 mg/dL (70-99) Calcium Level 9.4 mg/dL (8.5-10.1) Microbiology 08/16/17 Blood Culture - Preliminary, Resulted NO GROWTH AFTER 3 DAYS Medications Current Medications Iohexol (Omnipaque 300 Mg/ml) 75 ml 1X ONCE IV ; Start 08/16/17 at 12:45; Stop 08/16/17 at 12:46; Status DC Info (Do NOT chart on this entry -- for MONITORING) 1 each PRN DAILY PRN MC SEE COMMENTS; Start 08/16/17 at 13:00; Stop 08/18/17 at 12:59; Status DC Cefepime HCl 2 gm/ Dextrose 100 ml @ 200 mls/hr Q8HRS IV ; Start 08/16/17 at 22 :00; Status Cancel Vancomycin HCl (Vanco Per Pharmacy) 1 each PRN DAILY PRN MC SEE COMMENTS Last administered on 08/19/17 06:09; Start 08/16/17 at 14:15 Cefepime HCl (Maxipime) 2 gm 1X ONCE IVP Last administered on 08/16/17 14:32 ; Start 08/16/17 at 14:15; Stop 08/16/17 at 14:16; Status DC Vancomycin HCl 1.25 gm/Dextrose 250 ml @ 166.667 mls/hr 1X ONCE IV Last administered on 08/16/17 14:39; Start 08/16/17 at 14:15; Stop 08/16/17 at 15:44 ; Status DC Sodium Chloride 1,000 ml @ 1,380 mls/hr Q44M IV Last administered on 16:16; Start 08/16/17 at 14:34; Stop 08/16/17 at 15:34; Status DC Ondansetron HCl (Zofran) 4 mg PRN Q8HRS PRN IV NAUSEA/VOMITING; Start 08/16/17 at 14:45; Stop 08/17/17 at 01:29; Status DC Sodium Chloride 1,000 ml @ 125 mls/hr Q8H IV Last administered on 08/17/17 05 :03; Start 08/16/17 at 14:38; Stop 08/17/17 at 14:37; Status DC Albuterol/ Ipratropium (Duoneb) 3 ml RTQID NEB Last administered on 08/17/17 11:48; Start 08/16/17 at 16:00; Stop 08/17/17 at 15:59; Status DC Cefepime HCl (Maxipime) 2 gm Q8HRS IVP Last administered on 08/20/17 05:39; Start 08/16/17 at 22:00 Vancomycin HCl 750 mg/Dextrose 250 ml @ 250 mls/hr Q12H IV Last administered on 08/17/17 15:27; Start 08/17/17 at 03:00; Stop 08/18/17 at 03:37; Status DC Vancomycin HCl 1 each 1X ONCE MC Last administered on 08/18/17 02:30; Start 08/18/17 at 02:30; Stop 08/18/17 at 02:31; Status DC Sodium Chloride 1,000 ml @ 1,000 mls/hr 1X ONCE IV ; Start 08/16/17 at 15:15; Stop 08/16/17 at 16:14; Status DC Atorvastatin Calcium (Lipitor) 40 mg QHS PO Last administered on 08/19/17 21: 42; Start 08/16/17 at 21:00 Docusate Sodium (Colace) 100 mg DAILY PO ; Start 08/16/17 at 17:00; Stop at 17:00; Status DC Bupropion HCl (Wellbutrin Xl) 300 mg DAILY PO Last administered on 08/20/17 08 :44; Start 08/17/17 at 09:00 Vitamin D (Vitamin D3) 5,000 unit WEEKLY PO Last administered on 08/17/17 09: 08; Start 08/17/17 at 09:00 Lubiprostone (Amitiza) 24 mcg BIDWMEALS PO Last administered on 08/20/17 08:47 ; Start 08/16/17 at 17:00 Lurasidone HCl (Latuda) 120 mg DAILYWSUP PO Last administered on 08/19/17 16: 47; Start 08/16/17 at 17:00 Non-Formulary Medication 1 each HS PO ; Start 08/16/17 at 21:00; Status UNV Acetaminophen (Tylenol) 650 mg PRN Q6HRS PRN PO FEVER; Start 08/16/17 at 16:30 Ondansetron HCl (Zofran) 4 mg PRN Q6HRS PRN IV NAUSEA/VOMITING; Start 08/16/17 at 16:30 Morphine Sulfate 2 mg PRN Q2HR PRN IV PAIN; Start 08/16/17 at 16:30; Stop 08/18 at 11:12; Status DC Tramadol HCl (Ultram) 50 mg PRN Q6HRS PRN PO PAIN; Start 08/16/17 at 16:30 Hydralazine HCl (Apresoline Inj) 10 mg PRN Q4HRS PRN IVP ELEVATED BP, SEE COMMENTS; Start 08/16/17 at 16:30 Docusate Sodium (Colace) 100 mg PRN DAILY PRN PO CONSTIPATION; Start 08/16/17 at 16:30 Albuterol/ Ipratropium (Duoneb) 3 ml RTQID NEB Last administered on 08/20/17 12:05; Start 08/16/17 at 17:00 Albuterol Sulfate (Ventolin Neb Soln) 2.5 mg PRN Q2HR PRN NEB SHORTNESS OF BREATH; Start 08/16/17 at 16:30 Guaifenesin (Mucinex) 600 mg BID PO Last administered on 08/20/17 08:45; Start 08/16/17 at 21:00 Enoxaparin Sodium (Lovenox 40mg Syringe) 40 mg Q24H SQ Last administered on 16:47; Start 08/16/17 at 17:00 Famotidine (Pepcid) 20 mg QHS IVP Last administered on 08/19/17 21:49; Start 08/16/17 at 21:00 Sodium Bicarbonate 50 meq 1X ONCE IV Last administered on 08/16/17 17:42; Start 08/16/17 at 17:30; Stop 08/16/17 at 17:38; Status DC Norepinephrine Bitartrate 250 ml @ As Directed STK-MED ONCE IV ; Start at 23:03; Stop 08/16/17 at 23:04; Status DC Norepinephrine Bitartrate 250 ml @ 0 mls/hr CONT PRN IV SEE I/O RECORD Last administered on 08/17/17 02:05; Start 08/17/17 at 01:15; Stop 08/19/17 at 08:21 ; Status DC Amlodipine Besylate (Norvasc) 10 mg DAILY PO Last administered on 08/19/17 08: 33; Start 08/17/17 at 12:00 Clonazepam (KlonoPIN) 1 mg BID PO Last administered on 08/20/17 08:45; Start 08/17/17 at 12:00 Hydrochlorothiazide (Hydrodiuril) 25 mg DAILY PO Last administered on 08:31; Start 08/17/17 at 12:00 Acetaminophen/ Hydrocodone Bitart (Lortab 5/325) 1 tab PRN Q6HRS PRN PO PAIN; Start 08/17/17 at 11:30 Potassium Chloride (Klor-Con) 20 meq DAILYWBKFT PO Last administered on 08:44; Start 08/17/17 at 12:00 Sennosides (Senna) 8.6 mg DAILY PO Last administered on 08/20/17 08:45; Start 08/17/17 at 12:00 Temazepam (Restoril) 30 mg QHS PO Last administered on 08/19/17 21:42; Start 08/17/17 at 21:00 Tizanidine HCl (Zanaflex) 4 mg PRN Q8HRS PRN PO MUSCLE SPASMS; Start 08/17/17 at 11:30 Non-Formulary Medication 70 mg WEEKLY PO ; Start 08/24/17 at 09:00; Status UNV Calcium Carbonate/ Glycine (Oscal) 500 mg DAILY PO Last administered on 08:45; Start 08/17/17 at 12:00 Gabapentin (Neurontin) 300 mg TID PO Last administered on 08/20/17 08:45; Start 08/17/17 at 14:00 Ibuprofen (Motrin) 600 mg PRN Q6HRS PRN PO PAIN Last administered on 08/18/17 18:45; Start 08/17/17 at 11:45 Losartan Potassium (Cozaar) 50 mg DAILY PO Last administered on 08/19/17 08:33 ; Start 08/17/17 at 12:00 Non-Formulary Medication 375 mg BID PRN PO PAIN; Start 08/17/17 at 11:30; Status UNV Sumatriptan Succinate (Imitrex) 100 mg PRN Q2HR PRN PO MIGRAINE HEADACHE; Start 08/17/17 at 11:45 Polyethylene Glycol (miraLAX PACKET) 17 gm PRN DAILY PRN PO CONSTIPATION Last administered on 08/20/17 08:45; Start 08/17/17 at 20:30 Vancomycin HCl 1 gm/Dextrose 250 ml @ 250 mls/hr Q12H IV Last administered on 08/18/17 17:11; Start 08/18/17 at 04:00; Stop 08/19/17 at 05:12; Status DC Vancomycin HCl 1 each 1X ONCE MC Last administered on 08/19/17 03:30; Start 08/19/17 at 03:30; Stop 08/19/17 at 03:31; Status DC Morphine Sulfate 2 mg PRN Q2HR PRN IV PAIN; Start 08/18/17 at 11:15 Vancomycin HCl 1.5 gm/Dextrose 500 ml @ 250 mls/hr Q12H IV ; Start 08/19/17 at 05:30; Stop 08/19/17 at 05:56; Status DC Vancomycin HCl 1 gm/Dextrose 250 ml @ 250 mls/hr Q12H IV Last administered on 08/20/17 05:49; Start 08/19/17 at 06:00 Active Scripts Active Morphine Sulfate 15 Mg Tablet 1 Tab PO PRN Q6-8HRS PRN Naproxen 375 Mg Tablet 375 Mg PO BID PRN Reported Calcium (Calcium Carbonate) 600 Mg Tablet 600 Mg PO DAILY Temazepam 30 Mg Capsule 1 Cap PO QHS Senna (Sennosides) 8.6 Mg Tablet 8.6 Mg PO Gabapentin 300 Mg Capsule 300 Mg PO TID Tizanidine Hcl 4 Mg Tablet 4 Mg PO PRN Q8HRS PRN Amitiza (Lubiprostone) 24 Mcg Capsule 24 Mcg PO BID Stool Softener (Docusate Sodium) 100 Mg Capsule 100 Mg PO DAILY Melatonin 5 Mg Tablet (Melatonin/Pyridoxine Hcl (B6)) 1 Each Tablet 1 Each PO HS Latuda (Lurasidone Hcl) 120 Mg Tablet 120 Mg PO DAILYWSUP Bupropion Xl (Bupropion Hcl) 300 Mg Tab.er.24h 300 Mg PO DAILY Alendronate Sodium 70 Mg Tablet 70 Mg PO WEEKLY Ibuprofen 600 Mg Tablet 600 Mg PO Q6H PRN Hydrocodone-Apap 5-325 (Hydrocodone Bit/Acetaminophen) 1 Each Tablet 1 Tab PO PRN Q6HRS PRN Vitamin D-3 (Cholecalciferol (Vitamin D3)) 2,000 Unit Tablet 5,000 Unit PO WEEKLY Losartan Potassium 100 Mg Tablet 50 Mg PO DAILY Amlodipine Besylate 10 Mg Tablet 10 Mg PO DAILY Atorvastatin Calcium 40 Mg Tablet 40 Mg PO DAILY Hydrochlorothiazide Capsule (Hydrochlorothiazide) 12.5 Mg Capsule 25 Mg PO DAILY Potassium Chloride 20 Meq Tab.er.prt 20 Meq PO DAILY Maxalt (Rizatriptan Benzoate) 10 Mg Tablet 10 Mg PO PRN PRN Clonazepam 1 Mg Tablet 1 Mg PO BID Vitals/I & O Vital Sign - Last 24 Hours 08/19/17 08/19/17 08/19/17 08/19/17 15:00 15:59 19:00 19:17 Temp 97.9 97.9 97.9 97.9 Pulse 91 95 Resp 18 18 B/P (MAP) 97/70 (79) 134/78 (96) Pulse Ox 95 98 96 O2 Delivery Nasal Cannula Nasal Cannula Nasal Cannula Nasal Cannula O2 Flow Rate 1.0 1.0 08/19/17 08/19/17 08/20/17 08/20/17 20:00 23:00 03:02 07:10 Temp 97.5 97.8 97.5 97.5 97.8 97.5 Pulse 83 81 82 Resp 20 18 18 B/P (MAP) 152/88 (109) 108/54 (72) 97/61 (73) Pulse Ox 99 90 96 O2 Delivery Nasal Cannula Nasal Cannula Nasal Cannula Nasal Cannula O2 Flow Rate 1.0 1.0 08/20/17 08/20/17 08/20/17 08/20/17 08:15 09:00 09:00 10:30 Temp 96.8 96.8 Pulse 82 82 89 Resp 18 B/P (MAP) 97/61 97/61 127/84 (98) Pulse Ox 96 93 O2 Delivery Nasal Cannula Nasal Cannula O2 Flow Rate 1.0 1.0 08/20/17 12:07 Pulse Ox 90 O2 Delivery Room Air Intake and Output 08/20/17 08/20/17 08/21/17 15:00 23:00 07:00 Output Total 200 ml Balance -200 ml Nutrition Consultation Dietary Evaluation: Recommendations by RD: Increase Calorie Intake Comments: REC cardiac diet w/textures per [employer] (dysphagia III w/thin liquids) Expected Outcomes/Goals: PO intake to meet > 75% est needs Interpretation of weight loss: >10% in 6 months Malnutrition Findings: Food and Nutrition Intake (Mod: <75% est energy req 7days Weight Status: Appropriate TONI PRICE MD Aug 20, 2017 12:36
[2017-08-20] MEDS: VANCOMYCIN PER PHARMACY MC PRN (12:45)
[2017-08-20 15:00] VITALS: BP 128/71
[2017-08-20] MEDS: LURASIDONE 40 MG TABLET. PO SCH (17:00)
[2017-08-20] MEDS: ENOXAPARIN 40 MG/0.4 ML SYRINGE. SQ SCH (17:04)
--- NOTE | 2017-08-20 18:09 | PDOC ---
PULMONARY PROGRESS NOTES Subjective PT FEELS BETTER LESS SOA Vitals Vital Signs Date Time Temp Pulse Resp B/P (MAP) Pulse Ox O2 Delivery O2 Flow Rate FiO2 08/20/17 17:29 Room Air 08/20/17 15:00 98.1 90 18 128/71 (90) 93 18.0 98.1 Lungs: Clear Cardiovascular: S1, S2 Labs Laboratory Tests Test 08/19/17 03:20 08/20/17 04:25 White Blood Count 5.5 x10^3/uL (4.0-11.0) 5.3 x10^3/uL (4.0-11.0) Red Blood Count 4.01 x10^6/uL (3.50-5.40) 4.47 x10^6/uL (3.50-5.40) Hemoglobin 11.5 g/dL (12.0-15.5) 12.8 g/dL (12.0-15.5) Hematocrit 35.3 % (36.0-47.0) 39.7 % (36.0-47.0) Mean Corpuscular Volume 88 fL (79-100) 89 fL (79-100) Mean Corpuscular Hemoglobin 29 pg (25-35) 29 pg (25-35) Mean Corpuscular Hemoglobin Concent 33 g/dL (31-37) 32 g/dL (31-37) Red Cell Distribution Width 15.9 % (11.5-14.5) 15.8 % (11.5-14.5) Platelet Count 165 x10^3/uL (140-400) 184 x10^3/uL (140-400) Neutrophils (%) (Auto) 62 % (31-73) 59 % (31-73) Lymphocytes (%) (Auto) 27 % (24-48) 27 % (24-48) Monocytes (%) (Auto) 8 % (0-9) 10 % (0-9) Eosinophils (%) (Auto) 3 % (0-3) 3 % (0-3) Basophils (%) (Auto) 1 % (0-3) 1 % (0-3) Neutrophils # (Auto) 3.4 x10^3uL (1.8-7.7) 3.1 x10^3uL (1.8-7.7) Lymphocytes # (Auto) 1.5 x10^3/uL (1.0-4.8) 1.4 x10^3/uL (1.0-4.8) Monocytes # (Auto) 0.5 x10^3/uL (0.0-1.1) 0.5 x10^3/uL (0.0-1.1) Eosinophils # (Auto) 0.1 x10^3/uL (0.0-0.7) 0.1 x10^3/uL (0.0-0.7) Basophils # (Auto) 0.0 x10^3/uL (0.0-0.2) 0.0 x10^3/uL (0.0-0.2) Sodium Level 145 mmol/L (136-145) 142 mmol/L (136-145) Potassium Level 3.5 mmol/L (3.5-5.1) 3.6 mmol/L (3.5-5.1) Chloride Level 104 mmol/L (98-107) 99 mmol/L (98-107) Carbon Dioxide Level 40 mmol/L (21-32) 42 mmol/L (21-32) Anion Gap 1 (6-14) 1 (6-14) Blood Urea Nitrogen 12 mg/dL (7-20) 10 mg/dL (7-20) Creatinine 0.4 mg/dL (0.6-1.0) 0.5 mg/dL (0.6-1.0) Estimated GFR (Cockcroft-Gault) 159.7 123.4 Glucose Level 94 mg/dL (70-99) 98 mg/dL (70-99) Calcium Level 8.9 mg/dL (8.5-10.1) 9.4 mg/dL (8.5-10.1) Vancomycin Level Trough 14.3 mcg/mL (10.0-20.0) Vancomycin Last Dose Date 08/18/17 Vancomycin Last Dose Time 1600 Laboratory Tests Test 08/20/17 04:25 White Blood Count 5.3 x10^3/uL (4.0-11.0) Red Blood Count 4.47 x10^6/uL (3.50-5.40) Hemoglobin 12.8 g/dL (12.0-15.5) Hematocrit 39.7 % (36.0-47.0) Mean Corpuscular Volume 89 fL (79-100) Mean Corpuscular Hemoglobin 29 pg (25-35) Mean Corpuscular Hemoglobin Concent 32 g/dL (31-37) Red Cell Distribution Width 15.8 % (11.5-14.5) Platelet Count 184 x10^3/uL (140-400) Neutrophils (%) (Auto) 59 % (31-73) Lymphocytes (%) (Auto) 27 % (24-48) Monocytes (%) (Auto) 10 % (0-9) Eosinophils (%) (Auto) 3 % (0-3) Basophils (%) (Auto) 1 % (0-3) Neutrophils # (Auto) 3.1 x10^3uL (1.8-7.7) Lymphocytes # (Auto) 1.4 x10^3/uL (1.0-4.8) Monocytes # (Auto) 0.5 x10^3/uL (0.0-1.1) Eosinophils # (Auto) 0.1 x10^3/uL (0.0-0.7) Basophils # (Auto) 0.0 x10^3/uL (0.0-0.2) Sodium Level 142 mmol/L (136-145) Potassium Level 3.6 mmol/L (3.5-5.1) Chloride Level 99 mmol/L (98-107) Carbon Dioxide Level 42 mmol/L (21-32) Anion Gap 1 (6-14) Blood Urea Nitrogen 10 mg/dL (7-20) Creatinine 0.5 mg/dL (0.6-1.0) Estimated GFR (Cockcroft-Gault) 123.4 Glucose Level 98 mg/dL (70-99) Calcium Level 9.4 mg/dL (8.5-10.1) Medications Active Scripts Medications Dose Route/Sig Max Daily Dose Days Date Category Calcium (Calcium Carbonate) 600 Mg Tablet 600 Mg PO DAILY 08/16/17 Reported Temazepam 30 Mg Capsule 1 Cap PO QHS 08/16/17 Reported Senna (Sennosides) 8.6 Mg Tablet 8.6 Mg PO 08/16/17 Reported Gabapentin 300 Mg Capsule 300 Mg PO TID 08/16/17 Reported Tizanidine Hcl 4 Mg Tablet 4 Mg PO PRN Q8HRS PRN 02/15/17 Reported Amitiza (Lubiprostone) 24 Mcg Capsule 24 Mcg PO BID 02/15/17 Reported Morphine Sulfate 15 Mg Tablet 1 Tab PO PRN Q6-8HRS PRN 02/13/17 Rx Naproxen 375 Mg Tablet 375 Mg PO BID PRN 12/13/16 Rx Stool Softener (Docusate Sodium) 100 Mg Capsule 100 Mg PO DAILY 09/19/15 Reported Melatonin 5 Mg Tablet (Melatonin/Pyridoxine Hcl (B6)) 1 Each Tablet 1 Each PO HS 09/19/15 Reported Latuda (Lurasidone Hcl) 120 Mg Tablet 120 Mg PO DAILYWSUP 09/19/15 Reported Bupropion Xl (Bupropion Hcl) 300 Mg Tab.er.24h 300 Mg PO DAILY 09/19/15 Reported Alendronate Sodium 70 Mg Tablet 70 Mg PO WEEKLY 09/19/15 Reported Ibuprofen 600 Mg Tablet 600 Mg PO Q6H PRN 09/19/15 Reported Hydrocodone-Apap 5-325 (Hydrocodone Bit/Acetaminophen) 1 Each Tablet 1 Tab PO PRN Q6HRS PRN 09/19/15 Reported Vitamin D-3 (Cholecalciferol (Vitamin D3)) 2,000 Unit Tablet 5,000 Unit PO WEEKLY 09/19/15 Reported Losartan Potassium 100 Mg Tablet 50 Mg PO DAILY 09/19/15 Reported Amlodipine Besylate 10 Mg Tablet 10 Mg PO DAILY 09/19/15 Reported Atorvastatin Calcium 40 Mg Tablet 40 Mg PO DAILY 09/19/15 Reported Hydrochlorothiazide Capsule (Hydrochlorothiazide) 12.5 Mg Capsule 25 Mg PO DAILY 09/19/15 Reported Potassium Chloride 20 Meq Tab.er.prt 20 Meq PO DAILY 09/19/15 Reported Maxalt (Rizatriptan Benzoate) 10 Mg Tablet 10 Mg PO PRN PRN 09/19/15 Reported Clonazepam 1 Mg Tablet 1 Mg PO BID 11/25/13 Reported Impression . 1. Acute hypoxemic-hypercapnic respiratory failure. 2. Metabolic encephalopathy, acute, present upon admission. 3. Possible pneumonia, gram-negative, gram-positive. 4. Hyponatremia. 5. Chronic pain syndrome. 6. Hypotension, possible sepsis. 7. Bipolar disorder. 8. Schizophrenia. Plan . AGREE WITH D/C IN AM ON [facility] RESP STATUS IS COMPENSATED 1. The patient has improved with the utilization of BiPAP. 2. She has been weaned off of pressors. 3. Continue IV fluids. 4. Empiric antibiotics. 5. P.r.n. BiPAP. 6. DVT and GI prophylaxis. ZANDER LOPEZ MD Aug 20, 2017 18:09
[2017-08-20 19:00] VITALS: BP 144/95
[2017-08-20] MEDS: FAMOTIDINE 20 MG/2 ML VIAL IVP SCH (21:17)
[2017-08-20] MEDS: ATORVASTATIN CALCIUM 40 MG TABLET. PO SCH (21:18)
[2017-08-20] MEDS: TEMAZEPAM 15 MG CAPSULE PO SCH (21:18)
[2017-08-20 23:00] VITALS: BP 162/99
[2017-08-21] VITALS (7 sets, daily range): BP systolic 107–163; BP diastolic 70–88
[2017-08-21] MEDS: VANCOMYCIN 1 GM in IV DEXTROSE 5% 250 ML IV SCH (05:18)
[2017-08-21] MEDS: CEFEPIME HCL IV Push 2 GM VIAL. IVP SCH ×3 (05:19→22:05)
[2017-08-21 05:24] LABS: BASO % 1 % (0-3); EOS % 3 % (0-3); HEMATOCRIT 38.1 % (36.0-47.0); HEMOGLOBIN 12.6 g/dL (12.0-15.5); LYMPH # 1.3 x10^3/uL (1.0-4.8); LYMPH % 30 % (24-48); MEAN CORPUSCULAR HEMOGLOBIN 29 pg (25-35); MEAN CORPUSCULAR HGB CONC 33 g/dL (31-37); MEAN CORPUSCULAR VOLUME 88 fL (79-100); MONO % 10 % (0-9); NEUT % 57 % (31-73); PLATELET COUNT 173 x10^3/uL (140-400); RED BLOOD COUNT 4.36 x10^6/uL (3.50-5.40); RED CELL DISTRIBUTION WIDTH 15.7 % (11.5-14.5); WHITE BLOOD COUNT 4.4 x10^3/uL (4.0-11.0)
[2017-08-21 05:42] LABS: CALCIUM 9.2 mg/dL (8.5-10.1); CREATININE 0.5 mg/dL (0.6-1.0); GFR 123.4; POTASSIUM 3.8 mmol/L (3.5-5.1)
[2017-08-21] MEDS: IPRATRPIUM/ALBUTEROL 0.5/2.5MG 3 ML NEBU. NEB SCH ×4 (07:11→19:51)
[2017-08-21] MEDS: GABAPENTIN 300 MG CAPSULE. PO SCH ×3 (08:51→20:09)
[2017-08-21] MEDS: POTASSIUM CHLORIDE 20 MEQ TABLET.ER. PO SCH (08:51)
[2017-08-21] MEDS: CALCIUM CARBONATE 500 MG TABLET PO SCH (08:51)
[2017-08-21] MEDS: LUBIPROSTONE 8 MCG CAPSULE PO SCH ×2 (08:51→17:09)
[2017-08-21] MEDS: buPROPion XL 150 MG TAB.ER.24H. PO SCH (08:51)
[2017-08-21] MEDS: clonazePAM 1 MG TABLET PO SCH ×2 (08:51→20:09)
[2017-08-21] MEDS: SENNOSIDES 8.6 MG TABLET PO SCH (08:51)
[2017-08-21] MEDS: POLYETHYLENE GLYCOL 3350 17 GM PACKET. PO PRN (08:52)
--- NOTE | 2017-08-21 10:39 | PDOC ---
PROGRESS NOTES Chief Complaint Chief Complaint AMS, metabolic encephalopathy, MULTIFACTORIAL, RESOLVED acute hypoxic and hypercapnic resp failure, RESOLVED haP hyponatremia, 2/2 low po intake? REOSLVED sepsis RESOLVED chronic back pain HTN , NOW hypotension - labile hld schizophrenia BIPolar Gen weakness History of Present Illness History of Present Illness reMAINS TO BE VERY WEAK, sbp SYSTOLIC, bp BEAUTIFUL but that is without any of her bp meds at home hh ON DC -BUT STILL VERY WEAK Needs help to go to bedside commode PLAN: Not ready to dc COnt daily pT.OT Dc to HH upon dc Vitals Vitals Vital Signs Date Time Temp Pulse Resp B/P (MAP) Pulse Ox O2 Delivery O2 Flow Rate FiO2 08/21/17 10:32 98.4 88 17 107/70 (82) 96 Room Air 98.4 08/21/17 07:12 1.0 Physical Exam General: Alert, Oriented X3, Cooperative, No acute distress Heart: Regular rate (SR), Normal S1, Normal S2, Other (2/6 systolic murmur to LLS border) Lungs: Clear Extremities: No cyanosis, Other (1+ bilateral LE pitting edema) Skin: No breakdown, No significant lesion Labs LABS Laboratory Tests Test 08/21/17 04:30 White Blood Count 4.4 x10^3/uL (4.0-11.0) Red Blood Count 4.36 x10^6/uL (3.50-5.40) Hemoglobin 12.6 g/dL (12.0-15.5) Hematocrit 38.1 % (36.0-47.0) Mean Corpuscular Volume 88 fL (79-100) Mean Corpuscular Hemoglobin 29 pg (25-35) Mean Corpuscular Hemoglobin Concent 33 g/dL (31-37) Red Cell Distribution Width 15.7 % (11.5-14.5) Platelet Count 173 x10^3/uL (140-400) Neutrophils (%) (Auto) 57 % (31-73) Lymphocytes (%) (Auto) 30 % (24-48) Monocytes (%) (Auto) 10 % (0-9) Eosinophils (%) (Auto) 3 % (0-3) Basophils (%) (Auto) 1 % (0-3) Neutrophils # (Auto) 2.5 x10^3uL (1.8-7.7) Lymphocytes # (Auto) 1.3 x10^3/uL (1.0-4.8) Monocytes # (Auto) 0.4 x10^3/uL (0.0-1.1) Eosinophils # (Auto) 0.1 x10^3/uL (0.0-0.7) Basophils # (Auto) 0.0 x10^3/uL (0.0-0.2) Sodium Level 142 mmol/L (136-145) Potassium Level 3.8 mmol/L (3.5-5.1) Chloride Level 101 mmol/L (98-107) Carbon Dioxide Level 40 mmol/L (21-32) Anion Gap 1 (6-14) Blood Urea Nitrogen 11 mg/dL (7-20) Creatinine 0.5 mg/dL (0.6-1.0) Estimated GFR (Cockcroft-Gault) 123.4 Glucose Level 97 mg/dL (70-99) Calcium Level 9.2 mg/dL (8.5-10.1) Review of Systems Review of Systems weak, no soa, cp or abd pain Assessment and Plan Assessmemt and Plan Problems Medical Problems: (1) Altered mental status Status: Acute (2) Respiratory failure with hypoxia and hypercapnia Status: Acute Problems: Comment Review of Relevant I have reviewed the following items brandie (where applicable) has been applied. Labs Laboratory Tests Test 08/20/17 04:25 08/21/17 04:30 White Blood Count 5.3 x10^3/uL (4.0-11.0) 4.4 x10^3/uL (4.0-11.0) Red Blood Count 4.47 x10^6/uL (3.50-5.40) 4.36 x10^6/uL (3.50-5.40) Hemoglobin 12.8 g/dL (12.0-15.5) 12.6 g/dL (12.0-15.5) Hematocrit 39.7 % (36.0-47.0) 38.1 % (36.0-47.0) Mean Corpuscular Volume 89 fL (79-100) 88 fL (79-100) Mean Corpuscular Hemoglobin 29 pg (25-35) 29 pg (25-35) Mean Corpuscular Hemoglobin Concent 32 g/dL (31-37) 33 g/dL (31-37) Red Cell Distribution Width 15.8 % (11.5-14.5) 15.7 % (11.5-14.5) Platelet Count 184 x10^3/uL (140-400) 173 x10^3/uL (140-400) Neutrophils (%) (Auto) 59 % (31-73) 57 % (31-73) Lymphocytes (%) (Auto) 27 % (24-48) 30 % (24-48) Monocytes (%) (Auto) 10 % (0-9) 10 % (0-9) Eosinophils (%) (Auto) 3 % (0-3) 3 % (0-3) Basophils (%) (Auto) 1 % (0-3) 1 % (0-3) Neutrophils # (Auto) 3.1 x10^3uL (1.8-7.7) 2.5 x10^3uL (1.8-7.7) Lymphocytes # (Auto) 1.4 x10^3/uL (1.0-4.8) 1.3 x10^3/uL (1.0-4.8) Monocytes # (Auto) 0.5 x10^3/uL (0.0-1.1) 0.4 x10^3/uL (0.0-1.1) Eosinophils # (Auto) 0.1 x10^3/uL (0.0-0.7) 0.1 x10^3/uL (0.0-0.7) Basophils # (Auto) 0.0 x10^3/uL (0.0-0.2) 0.0 x10^3/uL (0.0-0.2) Sodium Level 142 mmol/L (136-145) 142 mmol/L (136-145) Potassium Level 3.6 mmol/L (3.5-5.1) 3.8 mmol/L (3.5-5.1) Chloride Level 99 mmol/L (98-107) 101 mmol/L (98-107) Carbon Dioxide Level 42 mmol/L (21-32) 40 mmol/L (21-32) Anion Gap 1 (6-14) 1 (6-14) Blood Urea Nitrogen 10 mg/dL (7-20) 11 mg/dL (7-20) Creatinine 0.5 mg/dL (0.6-1.0) 0.5 mg/dL (0.6-1.0) Estimated GFR (Cockcroft-Gault) 123.4 123.4 Glucose Level 98 mg/dL (70-99) 97 mg/dL (70-99) Calcium Level 9.4 mg/dL (8.5-10.1) 9.2 mg/dL (8.5-10.1) Laboratory Tests Test 08/21/17 04:30 White Blood Count 4.4 x10^3/uL (4.0-11.0) Red Blood Count 4.36 x10^6/uL (3.50-5.40) Hemoglobin 12.6 g/dL (12.0-15.5) Hematocrit 38.1 % (36.0-47.0) Mean Corpuscular Volume 88 fL (79-100) Mean Corpuscular Hemoglobin 29 pg (25-35) Mean Corpuscular Hemoglobin Concent 33 g/dL (31-37) Red Cell Distribution Width 15.7 % (11.5-14.5) Platelet Count 173 x10^3/uL (140-400) Neutrophils (%) (Auto) 57 % (31-73) Lymphocytes (%) (Auto) 30 % (24-48) Monocytes (%) (Auto) 10 % (0-9) Eosinophils (%) (Auto) 3 % (0-3) Basophils (%) (Auto) 1 % (0-3) Neutrophils # (Auto) 2.5 x10^3uL (1.8-7.7) Lymphocytes # (Auto) 1.3 x10^3/uL (1.0-4.8) Monocytes # (Auto) 0.4 x10^3/uL (0.0-1.1) Eosinophils # (Auto) 0.1 x10^3/uL (0.0-0.7) Basophils # (Auto) 0.0 x10^3/uL (0.0-0.2) Sodium Level 142 mmol/L (136-145) Potassium Level 3.8 mmol/L (3.5-5.1) Chloride Level 101 mmol/L (98-107) Carbon Dioxide Level 40 mmol/L (21-32) Anion Gap 1 (6-14) Blood Urea Nitrogen 11 mg/dL (7-20) Creatinine 0.5 mg/dL (0.6-1.0) Estimated GFR (Cockcroft-Gault) 123.4 Glucose Level 97 mg/dL (70-99) Calcium Level 9.2 mg/dL (8.5-10.1) Microbiology 08/16/17 Blood Culture - Preliminary, Resulted NO GROWTH AFTER 4 DAYS Medications Current Medications Iohexol (Omnipaque 300 Mg/ml) 75 ml 1X ONCE IV ; Start 08/16/17 at 12:45; Stop 08/16/17 at 12:46; Status DC Info (Do NOT chart on this entry -- for MONITORING) 1 each PRN DAILY PRN MC SEE COMMENTS; Start 08/16/17 at 13:00; Stop 08/18/17 at 12:59; Status DC Cefepime HCl 2 gm/ Dextrose 100 ml @ 200 mls/hr Q8HRS IV ; Start 08/16/17 at 22 :00; Status Cancel Vancomycin HCl (Vanco Per Pharmacy) 1 each PRN DAILY PRN MC SEE COMMENTS Last administered on 08/20/17 12:45; Start 08/16/17 at 14:15 Cefepime HCl (Maxipime) 2 gm 1X ONCE IVP Last administered on 08/16/17 14:32 ; Start 08/16/17 at 14:15; Stop 08/16/17 at 14:16; Status DC Vancomycin HCl 1.25 gm/Dextrose 250 ml @ 166.667 mls/hr 1X ONCE IV Last administered on 08/16/17 14:39; Start 08/16/17 at 14:15; Stop 08/16/17 at 15:44 ; Status DC Sodium Chloride 1,000 ml @ 1,380 mls/hr Q44M IV Last administered on 16:16; Start 08/16/17 at 14:34; Stop 08/16/17 at 15:34; Status DC Ondansetron HCl (Zofran) 4 mg PRN Q8HRS PRN IV NAUSEA/VOMITING; Start 08/16/17 at 14:45; Stop 08/17/17 at 01:29; Status DC Sodium Chloride 1,000 ml @ 125 mls/hr Q8H IV Last administered on 08/17/17 05 :03; Start 08/16/17 at 14:38; Stop 08/17/17 at 14:37; Status DC Albuterol/ Ipratropium (Duoneb) 3 ml RTQID NEB Last administered on 08/17/17 11:48; Start 08/16/17 at 16:00; Stop 08/17/17 at 15:59; Status DC Cefepime HCl (Maxipime) 2 gm Q8HRS IVP Last administered on 08/21/17 05:19; Start 08/16/17 at 22:00 Vancomycin HCl 750 mg/Dextrose 250 ml @ 250 mls/hr Q12H IV Last administered on 08/17/17 15:27; Start 08/17/17 at 03:00; Stop 08/18/17 at 03:37; Status DC Vancomycin HCl 1 each 1X ONCE MC Last administered on 08/18/17 02:30; Start 08/18/17 at 02:30; Stop 08/18/17 at 02:31; Status DC Sodium Chloride 1,000 ml @ 1,000 mls/hr 1X ONCE IV ; Start 08/16/17 at 15:15; Stop 08/16/17 at 16:14; Status DC Atorvastatin Calcium (Lipitor) 40 mg QHS PO Last administered on 08/20/17 21: 18; Start 08/16/17 at 21:00 Docusate Sodium (Colace) 100 mg DAILY PO ; Start 08/16/17 at 17:00; Stop at 17:00; Status DC Bupropion HCl (Wellbutrin Xl) 300 mg DAILY PO Last administered on 08/21/17 08:51; Start 08/17/17 at 09:00 Vitamin D (Vitamin D3) 5,000 unit WEEKLY PO Last administered on 08/17/17 09: 08; Start 08/17/17 at 09:00 Lubiprostone (Amitiza) 24 mcg BIDWMEALS PO Last administered on 08/21/17 08: 51; Start 08/16/17 at 17:00 Lurasidone HCl (Latuda) 120 mg DAILYWSUP PO Last administered on 08/20/17 17: 00; Start 08/16/17 at 17:00 Non-Formulary Medication 1 each HS PO ; Start 08/16/17 at 21:00; Status UNV Acetaminophen (Tylenol) 650 mg PRN Q6HRS PRN PO FEVER; Start 08/16/17 at 16:30 Ondansetron HCl (Zofran) 4 mg PRN Q6HRS PRN IV NAUSEA/VOMITING; Start 08/16/17 at 16:30 Morphine Sulfate 2 mg PRN Q2HR PRN IV PAIN; Start 08/16/17 at 16:30; Stop 08/18 at 11:12; Status DC Tramadol HCl (Ultram) 50 mg PRN Q6HRS PRN PO MODERATE PAIN; Start 08/16/17 at 16:30 Hydralazine HCl (Apresoline Inj) 10 mg PRN Q4HRS PRN IVP ELEVATED BP, SEE COMMENTS; Start 08/16/17 at 16:30; Stop 08/20/17 at 12:34; Status DC Docusate Sodium (Colace) 100 mg PRN DAILY PRN PO CONSTIPATION (2ND CHOICE); Start 08/16/17 at 16:30 Albuterol/ Ipratropium (Duoneb) 3 ml RTQID NEB Last administered on 08/21/17 07:11; Start 08/16/17 at 17:00 Albuterol Sulfate (Ventolin Neb Soln) 2.5 mg PRN Q2HR PRN NEB SHORTNESS OF BREATH; Start 08/16/17 at 16:30 Guaifenesin (Mucinex) 600 mg BID PO Last administered on 08/21/17 08:51; Start 08/16/17 at 21:00 Enoxaparin Sodium (Lovenox 40mg Syringe) 40 mg Q24H SQ Last administered on 17:04; Start 08/16/17 at 17:00 Famotidine (Pepcid) 20 mg QHS IVP Last administered on 08/20/17 21:17; Start 08/16/17 at 21:00 Sodium Bicarbonate 50 meq 1X ONCE IV Last administered on 08/16/17 17:42; Start 08/16/17 at 17:30; Stop 08/16/17 at 17:38; Status DC Norepinephrine Bitartrate 250 ml @ As Directed STK-MED ONCE IV ; Start at 23:03; Stop 08/16/17 at 23:04; Status DC Norepinephrine Bitartrate 250 ml @ 0 mls/hr CONT PRN IV SEE I/O RECORD Last administered on 08/17/17 02:05; Start 08/17/17 at 01:15; Stop 08/19/17 at 08:21 ; Status DC Amlodipine Besylate (Norvasc) 10 mg DAILY PO Last administered on 08/19/17 08: 33; Start 08/17/17 at 12:00; Stop 08/20/17 at 12:34; Status DC Clonazepam (KlonoPIN) 1 mg BID PO Last administered on 08/21/17 08:51; Start 08/17/17 at 12:00 Hydrochlorothiazide (Hydrodiuril) 25 mg DAILY PO Last administered on 08:31; Start 08/17/17 at 12:00; Stop 08/20/17 at 12:34; Status DC Acetaminophen/ Hydrocodone Bitart (Lortab 5/325) 1 tab PRN Q6HRS PRN PO SEVERE PAIN; Start 08/17/17 at 11:30 Potassium Chloride (Klor-Con) 20 meq DAILYWBKFT PO Last administered on 08:51; Start 08/17/17 at 12:00 Sennosides (Senna) 8.6 mg DAILY PO Last administered on 08/21/17 08:51; Start 08/17/17 at 12:00 Temazepam (Restoril) 30 mg QHS PO Last administered on 08/20/17 21:18; Start 08/17/17 at 21:00 Tizanidine HCl (Zanaflex) 4 mg PRN Q8HRS PRN PO MUSCLE SPASMS; Start 08/17/17 at 11:30 Non-Formulary Medication 70 mg WEEKLY PO ; Start 08/24/17 at 09:00; Status UNV Calcium Carbonate/ Glycine (Oscal) 500 mg DAILY PO Last administered on 08:51; Start 08/17/17 at 12:00 Gabapentin (Neurontin) 300 mg TID PO Last administered on 08/21/17 08:51; Start 08/17/17 at 14:00 Ibuprofen (Motrin) 600 mg PRN Q6HRS PRN PO MILD PAIN Last administered on 18:45; Start 08/17/17 at 11:45 Losartan Potassium (Cozaar) 50 mg DAILY PO Last administered on 08/19/17 08:33 ; Start 08/17/17 at 12:00; Stop 08/20/17 at 12:34; Status DC Non-Formulary Medication 375 mg BID PRN PO PAIN; Start 08/17/17 at 11:30; Status UNV Sumatriptan Succinate (Imitrex) 100 mg PRN Q2HR PRN PO MIGRAINE HEADACHE; Start 08/17/17 at 11:45 Polyethylene Glycol (miraLAX PACKET) 17 gm PRN DAILY PRN PO CONSTIPATION (1ST CHOICE) Last administered on 08/21/17 08:52; Start 08/17/17 at 20:30 Vancomycin HCl 1 gm/Dextrose 250 ml @ 250 mls/hr Q12H IV Last administered on 08/18/17 17:11; Start 08/18/17 at 04:00; Stop 08/19/17 at 05:12; Status DC Vancomycin HCl 1 each 1X ONCE MC Last administered on 08/19/17 03:30; Start 08/19/17 at 03:30; Stop 08/19/17 at 03:31; Status DC Morphine Sulfate 2 mg PRN Q2HR PRN IV PAIN; Start 08/18/17 at 11:15 Vancomycin HCl 1.5 gm/Dextrose 500 ml @ 250 mls/hr Q12H IV ; Start 08/19/17 at 05:30; Stop 08/19/17 at 05:56; Status DC Vancomycin HCl 1 gm/Dextrose 250 ml @ 250 mls/hr Q12H IV Last administered on 08/21/17 05:18; Start 08/19/17 at 06:00 Active Scripts Active Morphine Sulfate 15 Mg Tablet 1 Tab PO PRN Q6-8HRS PRN Naproxen 375 Mg Tablet 375 Mg PO BID PRN Reported Calcium (Calcium Carbonate) 600 Mg Tablet 600 Mg PO DAILY Temazepam 30 Mg Capsule 1 Cap PO QHS Senna (Sennosides) 8.6 Mg Tablet 8.6 Mg PO Gabapentin 300 Mg Capsule 300 Mg PO TID Tizanidine Hcl 4 Mg Tablet 4 Mg PO PRN Q8HRS PRN Amitiza (Lubiprostone) 24 Mcg Capsule 24 Mcg PO BID Stool Softener (Docusate Sodium) 100 Mg Capsule 100 Mg PO DAILY Melatonin 5 Mg Tablet (Melatonin/Pyridoxine Hcl (B6)) 1 Each Tablet 1 Each PO HS Latuda (Lurasidone Hcl) 120 Mg Tablet 120 Mg PO DAILYWSUP Bupropion Xl (Bupropion Hcl) 300 Mg Tab.er.24h 300 Mg PO DAILY Alendronate Sodium 70 Mg Tablet 70 Mg PO WEEKLY Ibuprofen 600 Mg Tablet 600 Mg PO Q6H PRN Hydrocodone-Apap 5-325 (Hydrocodone Bit/Acetaminophen) 1 Each Tablet 1 Tab PO PRN Q6HRS PRN Vitamin D-3 (Cholecalciferol (Vitamin D3)) 2,000 Unit Tablet 5,000 Unit PO WEEKLY Losartan Potassium 100 Mg Tablet 50 Mg PO DAILY Amlodipine Besylate 10 Mg Tablet 10 Mg PO DAILY Atorvastatin Calcium 40 Mg Tablet 40 Mg PO DAILY Hydrochlorothiazide Capsule (Hydrochlorothiazide) 12.5 Mg Capsule 25 Mg PO DAILY Potassium Chloride 20 Meq Tab.er.prt 20 Meq PO DAILY Maxalt (Rizatriptan Benzoate) 10 Mg Tablet 10 Mg PO PRN PRN Clonazepam 1 Mg Tablet 1 Mg PO BID Vitals/I & O Vital Sign - Last 24 Hours 08/20/17 08/20/17 08/20/17 08/20/17 12:07 15:00 15:55 17:29 Temp 98.1 98.1 Pulse 90 Resp 18 B/P (MAP) 128/71 (90) Pulse Ox 90 93 O2 Delivery Room Air Nasal Cannula Room Air Room Air O2 Flow Rate 18.0 08/20/17 08/20/17 08/20/17 08/20/17 19:00 19:26 20:00 23:00 Temp 97.9 98.1 97.9 98.1 Pulse 103 Resp 18 B/P (MAP) 144/95 (111) 162/99 (120) Pulse Ox 90 90 88 O2 Delivery Room Air Room Air Room Air Room Air O2 Flow Rate 18.0 08/20/17 08/21/17 08/21/17 08/21/17 23:14 03:00 07:00 07:12 Temp 96.1 98.7 96.1 98.7 Pulse 86 78 Resp 18 16 B/P (MAP) 124/71 (88) 124/78 (93) Pulse Ox 90 93 95 93 O2 Delivery Nasal Cannula Nasal Cannula Room Air Nasal Cannula O2 Flow Rate 1.0 1.0 1.0 08/21/17 10:32 Temp 98.4 98.4 Pulse 88 Resp 17 B/P (MAP) 107/70 (82) Pulse Ox 96 O2 Delivery Room Air Nutrition Consultation Dietary Evaluation: Recommendations by RD: Increase Calorie Intake Comments: REC cardiac diet w/textures per FAMILY PRACTICE DOCTOR (dysphagia III w/thin liquids) Expected Outcomes/Goals: PO intake to meet > 75% est needs Interpretation of weight loss: >10% in 6 months Malnutrition Findings: Food and Nutrition Intake (Mod: <75% est energy req 7days Weight Status: Appropriate TONI PRICE MD Aug 21, 2017 10:39
[2017-08-21] MEDS: VANCOMYCIN PER PHARMACY MC PRN (12:14)
--- NOTE | 2017-08-21 16:00 | PDOC ---
PULMONARY PROGRESS NOTES Subjective PT FEELS BETTER LESS SOA Vitals Vital Signs Date Time Temp Pulse Resp B/P (MAP) Pulse Ox O2 Delivery O2 Flow Rate FiO2 08/21/17 15:04 93 Nasal Cannula 1.0 08/21/17 14:30 98.0 85 16 107/73 (84) 98.0 Lungs: Clear Cardiovascular: S1, S2 Abdomen: Soft, Non-tender Neuro Exam: Alert Extremities: No Edema Skin: Warm Labs Laboratory Tests Test 08/20/17 04:25 08/21/17 04:30 White Blood Count 5.3 x10^3/uL (4.0-11.0) 4.4 x10^3/uL (4.0-11.0) Red Blood Count 4.47 x10^6/uL (3.50-5.40) 4.36 x10^6/uL (3.50-5.40) Hemoglobin 12.8 g/dL (12.0-15.5) 12.6 g/dL (12.0-15.5) Hematocrit 39.7 % (36.0-47.0) 38.1 % (36.0-47.0) Mean Corpuscular Volume 89 fL (79-100) 88 fL (79-100) Mean Corpuscular Hemoglobin 29 pg (25-35) 29 pg (25-35) Mean Corpuscular Hemoglobin Concent 32 g/dL (31-37) 33 g/dL (31-37) Red Cell Distribution Width 15.8 % (11.5-14.5) 15.7 % (11.5-14.5) Platelet Count 184 x10^3/uL (140-400) 173 x10^3/uL (140-400) Neutrophils (%) (Auto) 59 % (31-73) 57 % (31-73) Lymphocytes (%) (Auto) 27 % (24-48) 30 % (24-48) Monocytes (%) (Auto) 10 % (0-9) 10 % (0-9) Eosinophils (%) (Auto) 3 % (0-3) 3 % (0-3) Basophils (%) (Auto) 1 % (0-3) 1 % (0-3) Neutrophils # (Auto) 3.1 x10^3uL (1.8-7.7) 2.5 x10^3uL (1.8-7.7) Lymphocytes # (Auto) 1.4 x10^3/uL (1.0-4.8) 1.3 x10^3/uL (1.0-4.8) Monocytes # (Auto) 0.5 x10^3/uL (0.0-1.1) 0.4 x10^3/uL (0.0-1.1) Eosinophils # (Auto) 0.1 x10^3/uL (0.0-0.7) 0.1 x10^3/uL (0.0-0.7) Basophils # (Auto) 0.0 x10^3/uL (0.0-0.2) 0.0 x10^3/uL (0.0-0.2) Sodium Level 142 mmol/L (136-145) 142 mmol/L (136-145) Potassium Level 3.6 mmol/L (3.5-5.1) 3.8 mmol/L (3.5-5.1) Chloride Level 99 mmol/L (98-107) 101 mmol/L (98-107) Carbon Dioxide Level 42 mmol/L (21-32) 40 mmol/L (21-32) Anion Gap 1 (6-14) 1 (6-14) Blood Urea Nitrogen 10 mg/dL (7-20) 11 mg/dL (7-20) Creatinine 0.5 mg/dL (0.6-1.0) 0.5 mg/dL (0.6-1.0) Estimated GFR (Cockcroft-Gault) 123.4 123.4 Glucose Level 98 mg/dL (70-99) 97 mg/dL (70-99) Calcium Level 9.4 mg/dL (8.5-10.1) 9.2 mg/dL (8.5-10.1) Laboratory Tests Test 08/21/17 04:30 White Blood Count 4.4 x10^3/uL (4.0-11.0) Red Blood Count 4.36 x10^6/uL (3.50-5.40) Hemoglobin 12.6 g/dL (12.0-15.5) Hematocrit 38.1 % (36.0-47.0) Mean Corpuscular Volume 88 fL (79-100) Mean Corpuscular Hemoglobin 29 pg (25-35) Mean Corpuscular Hemoglobin Concent 33 g/dL (31-37) Red Cell Distribution Width 15.7 % (11.5-14.5) Platelet Count 173 x10^3/uL (140-400) Neutrophils (%) (Auto) 57 % (31-73) Lymphocytes (%) (Auto) 30 % (24-48) Monocytes (%) (Auto) 10 % (0-9) Eosinophils (%) (Auto) 3 % (0-3) Basophils (%) (Auto) 1 % (0-3) Neutrophils # (Auto) 2.5 x10^3uL (1.8-7.7) Lymphocytes # (Auto) 1.3 x10^3/uL (1.0-4.8) Monocytes # (Auto) 0.4 x10^3/uL (0.0-1.1) Eosinophils # (Auto) 0.1 x10^3/uL (0.0-0.7) Basophils # (Auto) 0.0 x10^3/uL (0.0-0.2) Sodium Level 142 mmol/L (136-145) Potassium Level 3.8 mmol/L (3.5-5.1) Chloride Level 101 mmol/L (98-107) Carbon Dioxide Level 40 mmol/L (21-32) Anion Gap 1 (6-14) Blood Urea Nitrogen 11 mg/dL (7-20) Creatinine 0.5 mg/dL (0.6-1.0) Estimated GFR (Cockcroft-Gault) 123.4 Glucose Level 97 mg/dL (70-99) Calcium Level 9.2 mg/dL (8.5-10.1) Medications Active Scripts Medications Dose Route/Sig Max Daily Dose Days Date Category Calcium (Calcium Carbonate) 600 Mg Tablet 600 Mg PO DAILY 08/16/17 Reported Temazepam 30 Mg Capsule 1 Cap PO QHS 08/16/17 Reported Senna (Sennosides) 8.6 Mg Tablet 8.6 Mg PO 08/16/17 Reported Gabapentin 300 Mg Capsule 300 Mg PO TID 08/16/17 Reported Tizanidine Hcl 4 Mg Tablet 4 Mg PO PRN Q8HRS PRN 02/15/17 Reported Amitiza (Lubiprostone) 24 Mcg Capsule 24 Mcg PO BID 5/7/17 Reported Morphine Sulfate 15 Mg Tablet 1 Tab PO PRN Q6-8HRS PRN 02/13/17 Rx Naproxen 375 Mg Tablet 375 Mg PO BID PRN 12/13/16 Rx Stool Softener (Docusate Sodium) 100 Mg Capsule 100 Mg PO DAILY 09/19/15 Reported Melatonin 5 Mg Tablet (Melatonin/Pyridoxine Hcl (B6)) 1 Each Tablet 1 Each PO HS 09/19/15 Reported Latuda (Lurasidone Hcl) 120 Mg Tablet 120 Mg PO DAILYWSUP 09/19/15 Reported Bupropion Xl (Bupropion Hcl) 300 Mg Tab.er.24h 300 Mg PO DAILY 09/19/15 Reported Alendronate Sodium 70 Mg Tablet 70 Mg PO WEEKLY 09/19/15 Reported Ibuprofen 600 Mg Tablet 600 Mg PO Q6H PRN 09/19/15 Reported Hydrocodone-Apap 5-325 (Hydrocodone Bit/Acetaminophen) 1 Each Tablet 1 Tab PO PRN Q6HRS PRN 09/19/15 Reported Vitamin D-3 (Cholecalciferol (Vitamin D3)) 2,000 Unit Tablet 5,000 Unit PO WEEKLY 09/19/15 Reported Losartan Potassium 100 Mg Tablet 50 Mg PO DAILY 09/19/15 Reported Amlodipine Besylate 10 Mg Tablet 10 Mg PO DAILY 09/19/15 Reported Atorvastatin Calcium 40 Mg Tablet 40 Mg PO DAILY 09/19/15 Reported Hydrochlorothiazide Capsule (Hydrochlorothiazide) 12.5 Mg Capsule 25 Mg PO DAILY 09/19/15 Reported Potassium Chloride 20 Meq Tab.er.prt 20 Meq PO DAILY 09/19/15 Reported Maxalt (Rizatriptan Benzoate) 10 Mg Tablet 10 Mg PO PRN PRN 09/19/15 Reported Clonazepam 1 Mg Tablet 1 Mg PO BID 11/25/13 Reported Impression . 1. Acute hypoxemic-hypercapnic respiratory failure. 2. Metabolic encephalopathy, acute, present upon admission. 3. Possible pneumonia, gram-negative, gram-positive. 4. Hyponatremia. 5. Chronic pain syndrome. 6. Hypotension, possible sepsis. 7. Bipolar disorder. 8. Schizophrenia. Plan . deescalat antibx RESP STATUS IS COMPENSATED ok to transfer soon on oral Levaquin ZANDER LOPEZ MD Aug 21, 2017 16:00
[2017-08-21] MEDS: LURASIDONE 40 MG TABLET. PO SCH (17:09)
[2017-08-21] MEDS: ENOXAPARIN 40 MG/0.4 ML SYRINGE. SQ SCH (17:09)
[2017-08-21] MEDS: ATORVASTATIN CALCIUM 40 MG TABLET. PO SCH (20:09)
[2017-08-21] MEDS: TEMAZEPAM 15 MG CAPSULE PO SCH (20:09)
[2017-08-21] MEDS: FAMOTIDINE 20 MG/2 ML VIAL IVP SCH (20:10)
[2017-08-22 04:30] VITALS: BP 118/66
[2017-08-22] MEDS: CEFEPIME HCL IV Push 2 GM VIAL. IVP SCH (05:35)
[2017-08-22 06:07] LABS: BASO % 1 % (0-3); EOS % 3 % (0-3); HEMATOCRIT 38.1 % (36.0-47.0); HEMOGLOBIN 12.5 g/dL (12.0-15.5); LYMPH # 1.4 x10^3/uL (1.0-4.8); LYMPH % 33 % (24-48); MEAN CORPUSCULAR HEMOGLOBIN 29 pg (25-35); MEAN CORPUSCULAR HGB CONC 33 g/dL (31-37); MEAN CORPUSCULAR VOLUME 87 fL (79-100); MONO % 10 % (0-9); NEUT % 53 % (31-73); PLATELET COUNT 164 x10^3/uL (140-400); RED BLOOD COUNT 4.36 x10^6/uL (3.50-5.40); RED CELL DISTRIBUTION WIDTH 15.7 % (11.5-14.5); WHITE BLOOD COUNT 4.2 x10^3/uL (4.0-11.0)
[2017-08-22 06:24] LABS: CALCIUM 9.4 mg/dL (8.5-10.1); CREATININE 0.4 mg/dL (0.6-1.0); GFR 159.7; POTASSIUM 3.8 mmol/L (3.5-5.1)
[2017-08-22 07:00] VITALS: BP 121/76
[2017-08-22] MEDS: IPRATRPIUM/ALBUTEROL 0.5/2.5MG 3 ML NEBU. NEB SCH ×4 (08:33→19:21)
[2017-08-22] MEDS: GABAPENTIN 300 MG CAPSULE. PO SCH ×3 (09:17→20:38)
[2017-08-22] MEDS: CALCIUM CARBONATE 500 MG TABLET PO SCH (09:17)
[2017-08-22] MEDS: buPROPion XL 150 MG TAB.ER.24H. PO SCH (09:18)
[2017-08-22] MEDS: clonazePAM 1 MG TABLET PO SCH ×2 (09:18→20:38)
[2017-08-22] MEDS: SENNOSIDES 8.6 MG TABLET PO SCH (09:18)
[2017-08-22] MEDS: POTASSIUM CHLORIDE 20 MEQ TABLET.ER. PO SCH (09:19)
[2017-08-22] MEDS: POLYETHYLENE GLYCOL 3350 17 GM PACKET. PO PRN (09:50)
[2017-08-22 11:00] VITALS: BP 119/77
--- NOTE | 2017-08-22 11:59 | PDOC ---
PROGRESS NOTES Chief Complaint Chief Complaint AMS, metabolic encephalopathy, MULTIFACTORIAL, RESOLVED acute hypoxic and hypercapnic resp failure, RESOLVED haP hyponatremia, 2/2 low po intake? REOSLVED sepsis RESOLVED chronic back pain HTN , NOW hypotension - labile hld schizophrenia BIPolar Gen weakness History of Present Illness History of Present Illness reMAINS TO BE VERY WEAK, sbp SYSTOLIC, bp BEAUTIFUL but that is without any of her bp meds at home hh ON DC -BUT STILL VERY WEAK Needs help to go to bedside commode Mightned O2 per staff CAnt even do a 6MW too weak PLAN: Not ready to dc COnt daily pT.OT Dc to HH upon dc possibly with home O2 She is NOT OVERV HER LOS She is over snu days - co pay $164 cant afford anymore Vitals Vitals Vital Signs Date Time Temp Pulse Resp B/P (MAP) Pulse Ox O2 Delivery O2 Flow Rate FiO2 08/22/17 11:29 Nasal Cannula 1.0 08/22/17 11:00 98.6 84 18 119/77 (91) 94 98.6 Physical Exam General: Alert, Oriented X3, Cooperative, No acute distress Heart: Regular rate (SR), Normal S1, Normal S2, Other (2/6 systolic murmur to LLS border) Lungs: Clear Extremities: No cyanosis, Other (1+ bilateral LE pitting edema) Skin: No breakdown, No significant lesion Labs LABS Laboratory Tests Test 08/22/17 05:15 White Blood Count 4.2 x10^3/uL (4.0-11.0) Red Blood Count 4.36 x10^6/uL (3.50-5.40) Hemoglobin 12.5 g/dL (12.0-15.5) Hematocrit 38.1 % (36.0-47.0) Mean Corpuscular Volume 87 fL (79-100) Mean Corpuscular Hemoglobin 29 pg (25-35) Mean Corpuscular Hemoglobin Concent 33 g/dL (31-37) Red Cell Distribution Width 15.7 % (11.5-14.5) Platelet Count 164 x10^3/uL (140-400) Neutrophils (%) (Auto) 53 % (31-73) Lymphocytes (%) (Auto) 33 % (24-48) Monocytes (%) (Auto) 10 % (0-9) Eosinophils (%) (Auto) 3 % (0-3) Basophils (%) (Auto) 1 % (0-3) Neutrophils # (Auto) 2.2 x10^3uL (1.8-7.7) Lymphocytes # (Auto) 1.4 x10^3/uL (1.0-4.8) Monocytes # (Auto) 0.4 x10^3/uL (0.0-1.1) Eosinophils # (Auto) 0.1 x10^3/uL (0.0-0.7) Basophils # (Auto) 0.0 x10^3/uL (0.0-0.2) Sodium Level 142 mmol/L (136-145) Potassium Level 3.8 mmol/L (3.5-5.1) Chloride Level 100 mmol/L (98-107) Carbon Dioxide Level 40 mmol/L (21-32) Anion Gap 2 (6-14) Blood Urea Nitrogen 12 mg/dL (7-20) Creatinine 0.4 mg/dL (0.6-1.0) Estimated GFR (Cockcroft-Gault) 159.7 Glucose Level 94 mg/dL (70-99) Calcium Level 9.4 mg/dL (8.5-10.1) Review of Systems Review of Systems weak, all else is neg Assessment and Plan Assessmemt and Plan Problems Medical Problems: (1) Altered mental status Status: Acute (2) Respiratory failure with hypoxia and hypercapnia Status: Acute Problems: Comment Review of Relevant I have reviewed the following items brandie (where applicable) has been applied. Labs Laboratory Tests Test 08/21/17 04:30 08/22/17 05:15 White Blood Count 4.4 x10^3/uL (4.0-11.0) 4.2 x10^3/uL (4.0-11.0) Red Blood Count 4.36 x10^6/uL (3.50-5.40) 4.36 x10^6/uL (3.50-5.40) Hemoglobin 12.6 g/dL (12.0-15.5) 12.5 g/dL (12.0-15.5) Hematocrit 38.1 % (36.0-47.0) 38.1 % (36.0-47.0) Mean Corpuscular Volume 88 fL (79-100) 87 fL (79-100) Mean Corpuscular Hemoglobin 29 pg (25-35) 29 pg (25-35) Mean Corpuscular Hemoglobin Concent 33 g/dL (31-37) 33 g/dL (31-37) Red Cell Distribution Width 15.7 % (11.5-14.5) 15.7 % (11.5-14.5) Platelet Count 173 x10^3/uL (140-400) 164 x10^3/uL (140-400) Neutrophils (%) (Auto) 57 % (31-73) 53 % (31-73) Lymphocytes (%) (Auto) 30 % (24-48) 33 % (24-48) Monocytes (%) (Auto) 10 % (0-9) 10 % (0-9) Eosinophils (%) (Auto) 3 % (0-3) 3 % (0-3) Basophils (%) (Auto) 1 % (0-3) 1 % (0-3) Neutrophils # (Auto) 2.5 x10^3uL (1.8-7.7) 2.2 x10^3uL (1.8-7.7) Lymphocytes # (Auto) 1.3 x10^3/uL (1.0-4.8) 1.4 x10^3/uL (1.0-4.8) Monocytes # (Auto) 0.4 x10^3/uL (0.0-1.1) 0.4 x10^3/uL (0.0-1.1) Eosinophils # (Auto) 0.1 x10^3/uL (0.0-0.7) 0.1 x10^3/uL (0.0-0.7) Basophils # (Auto) 0.0 x10^3/uL (0.0-0.2) 0.0 x10^3/uL (0.0-0.2) Sodium Level 142 mmol/L (136-145) 142 mmol/L (136-145) Potassium Level 3.8 mmol/L (3.5-5.1) 3.8 mmol/L (3.5-5.1) Chloride Level 101 mmol/L (98-107) 100 mmol/L (98-107) Carbon Dioxide Level 40 mmol/L (21-32) 40 mmol/L (21-32) Anion Gap 1 (6-14) 2 (6-14) Blood Urea Nitrogen 11 mg/dL (7-20) 12 mg/dL (7-20) Creatinine 0.5 mg/dL (0.6-1.0) 0.4 mg/dL (0.6-1.0) Estimated GFR (Cockcroft-Gault) 123.4 159.7 Glucose Level 97 mg/dL (70-99) 94 mg/dL (70-99) Calcium Level 9.2 mg/dL (8.5-10.1) 9.4 mg/dL (8.5-10.1) Laboratory Tests Test 08/22/17 05:15 White Blood Count 4.2 x10^3/uL (4.0-11.0) Red Blood Count 4.36 x10^6/uL (3.50-5.40) Hemoglobin 12.5 g/dL (12.0-15.5) Hematocrit 38.1 % (36.0-47.0) Mean Corpuscular Volume 87 fL (79-100) Mean Corpuscular Hemoglobin 29 pg (25-35) Mean Corpuscular Hemoglobin Concent 33 g/dL (31-37) Red Cell Distribution Width 15.7 % (11.5-14.5) Platelet Count 164 x10^3/uL (140-400) Neutrophils (%) (Auto) 53 % (31-73) Lymphocytes (%) (Auto) 33 % (24-48) Monocytes (%) (Auto) 10 % (0-9) Eosinophils (%) (Auto) 3 % (0-3) Basophils (%) (Auto) 1 % (0-3) Neutrophils # (Auto) 2.2 x10^3uL (1.8-7.7) Lymphocytes # (Auto) 1.4 x10^3/uL (1.0-4.8) Monocytes # (Auto) 0.4 x10^3/uL (0.0-1.1) Eosinophils # (Auto) 0.1 x10^3/uL (0.0-0.7) Basophils # (Auto) 0.0 x10^3/uL (0.0-0.2) Sodium Level 142 mmol/L (136-145) Potassium Level 3.8 mmol/L (3.5-5.1) Chloride Level 100 mmol/L (98-107) Carbon Dioxide Level 40 mmol/L (21-32) Anion Gap 2 (6-14) Blood Urea Nitrogen 12 mg/dL (7-20) Creatinine 0.4 mg/dL (0.6-1.0) Estimated GFR (Cockcroft-Gault) 159.7 Glucose Level 94 mg/dL (70-99) Calcium Level 9.4 mg/dL (8.5-10.1) Microbiology 08/16/17 Blood Culture - Final, Complete NO GROWTH AFTER 5 DAYS Medications Current Medications Iohexol (Omnipaque 300 Mg/ml) 75 ml 1X ONCE IV ; Start 08/16/17 at 12:45; Stop 08/16/17 at 12:46; Status DC Info (Do NOT chart on this entry -- for MONITORING) 1 each PRN DAILY PRN MC SEE COMMENTS; Start 08/16/17 at 13:00; Stop 08/18/17 at 12:59; Status DC Cefepime HCl 2 gm/ Dextrose 100 ml @ 200 mls/hr Q8HRS IV ; Start 08/16/17 at 22 :00; Status Cancel Vancomycin HCl (Vanco Per Pharmacy) 1 each PRN DAILY PRN MC SEE COMMENTS Last administered on 08/21/17 12:14; Start 08/16/17 at 14:15; Stop 08/21/17 at 15: 58; Status DC Cefepime HCl (Maxipime) 2 gm 1X ONCE IVP Last administered on 08/16/17 14:32 ; Start 08/16/17 at 14:15; Stop 08/16/17 at 14:16; Status DC Vancomycin HCl 1.25 gm/Dextrose 250 ml @ 166.667 mls/hr 1X ONCE IV Last administered on 08/16/17 14:39; Start 08/16/17 at 14:15; Stop 08/16/17 at 15:44 ; Status DC Sodium Chloride 1,000 ml @ 1,380 mls/hr Q44M IV Last administered on 16:16; Start 08/16/17 at 14:34; Stop 08/16/17 at 15:34; Status DC Ondansetron HCl (Zofran) 4 mg PRN Q8HRS PRN IV NAUSEA/VOMITING; Start 08/16/17 at 14:45; Stop 08/17/17 at 01:29; Status DC Sodium Chloride 1,000 ml @ 125 mls/hr Q8H IV Last administered on 08/17/17 05 :03; Start 08/16/17 at 14:38; Stop 08/17/17 at 14:37; Status DC Albuterol/ Ipratropium (Duoneb) 3 ml RTQID NEB Last administered on 08/17/17 11:48; Start 08/16/17 at 16:00; Stop 08/17/17 at 15:59; Status DC Cefepime HCl (Maxipime) 2 gm Q8HRS IVP Last administered on 08/22/17 05:35; Start 08/16/17 at 22:00 Vancomycin HCl 750 mg/Dextrose 250 ml @ 250 mls/hr Q12H IV Last administered on 08/17/17 15:27; Start 08/17/17 at 03:00; Stop 08/18/17 at 03:37; Status DC Vancomycin HCl 1 each 1X ONCE MC Last administered on 08/18/17 02:30; Start 08/18/17 at 02:30; Stop 08/18/17 at 02:31; Status DC Sodium Chloride 1,000 ml @ 1,000 mls/hr 1X ONCE IV ; Start 08/16/17 at 15:15; Stop 08/16/17 at 16:14; Status DC Atorvastatin Calcium (Lipitor) 40 mg QHS PO Last administered on 08/21/17 20: 09; Start 08/16/17 at 21:00 Docusate Sodium (Colace) 100 mg DAILY PO ; Start 08/16/17 at 17:00; Stop at 17:00; Status DC Bupropion HCl (Wellbutrin Xl) 300 mg DAILY PO Last administered on 08/22/17 09:18; Start 08/17/17 at 09:00 Vitamin D (Vitamin D3) 5,000 unit WEEKLY PO Last administered on 08/17/17 09: 08; Start 08/17/17 at 09:00 Lubiprostone (Amitiza) 24 mcg BIDWMEALS PO Last administered on 08/21/17 17: 09; Start 08/16/17 at 17:00 Lurasidone HCl (Latuda) 120 mg DAILYWSUP PO Last administered on 08/21/17 17: 09; Start 08/16/17 at 17:00 Non-Formulary Medication 1 each HS PO ; Start 08/16/17 at 21:00; Status UNV Acetaminophen (Tylenol) 650 mg PRN Q6HRS PRN PO FEVER; Start 08/16/17 at 16:30 Ondansetron HCl (Zofran) 4 mg PRN Q6HRS PRN IV NAUSEA/VOMITING; Start 08/16/17 at 16:30 Morphine Sulfate 2 mg PRN Q2HR PRN IV PAIN; Start 08/16/17 at 16:30; Stop 08/18 at 11:12; Status DC Tramadol HCl (Ultram) 50 mg PRN Q6HRS PRN PO MODERATE PAIN; Start 08/16/17 at 16:30 Hydralazine HCl (Apresoline Inj) 10 mg PRN Q4HRS PRN IVP ELEVATED BP, SEE COMMENTS; Start 08/16/17 at 16:30; Stop 08/20/17 at 12:34; Status DC Docusate Sodium (Colace) 100 mg PRN DAILY PRN PO CONSTIPATION (2ND CHOICE); Start 08/16/17 at 16:30 Albuterol/ Ipratropium (Duoneb) 3 ml RTQID NEB Last administered on 08/22/17 11:27; Start 08/16/17 at 17:00 Albuterol Sulfate (Ventolin Neb Soln) 2.5 mg PRN Q2HR PRN NEB SHORTNESS OF BREATH; Start 08/16/17 at 16:30 Guaifenesin (Mucinex) 600 mg BID PO Last administered on 08/22/17 09:18; Start 08/16/17 at 21:00 Enoxaparin Sodium (Lovenox 40mg Syringe) 40 mg Q24H SQ Last administered on 17:09; Start 08/16/17 at 17:00 Famotidine (Pepcid) 20 mg QHS IVP Last administered on 08/21/17 20:10; Start 08/16/17 at 21:00 Sodium Bicarbonate 50 meq 1X ONCE IV Last administered on 08/16/17 17:42; Start 08/16/17 at 17:30; Stop 08/16/17 at 17:38; Status DC Norepinephrine Bitartrate 250 ml @ As Directed STK-MED ONCE IV ; Start at 23:03; Stop 08/16/17 at 23:04; Status DC Norepinephrine Bitartrate 250 ml @ 0 mls/hr CONT PRN IV SEE I/O RECORD Last administered on 08/17/17 02:05; Start 08/17/17 at 01:15; Stop 08/19/17 at 08:21 ; Status DC Amlodipine Besylate (Norvasc) 10 mg DAILY PO Last administered on 08/19/17 08: 33; Start 08/17/17 at 12:00; Stop 08/20/17 at 12:34; Status DC Clonazepam (KlonoPIN) 1 mg BID PO Last administered on 08/22/17 09:18; Start 08/17/17 at 12:00 Hydrochlorothiazide (Hydrodiuril) 25 mg DAILY PO Last administered on 08:31; Start 08/17/17 at 12:00; Stop 08/20/17 at 12:34; Status DC Acetaminophen/ Hydrocodone Bitart (Lortab 5/325) 1 tab PRN Q6HRS PRN PO SEVERE PAIN; Start 08/17/17 at 11:30 Potassium Chloride (Klor-Con) 20 meq DAILYWBKFT PO Last administered on 09:19; Start 08/17/17 at 12:00 Sennosides (Senna) 8.6 mg DAILY PO Last administered on 08/22/17 09:18; Start 08/17/17 at 12:00 Temazepam (Restoril) 30 mg QHS PO Last administered on 08/21/17 20:09; Start 08/17/17 at 21:00 Tizanidine HCl (Zanaflex) 4 mg PRN Q8HRS PRN PO MUSCLE SPASMS; Start 08/17/17 at 11:30 Non-Formulary Medication 70 mg WEEKLY PO ; Start 08/24/17 at 09:00; Status UNV Calcium Carbonate/ Glycine (Oscal) 500 mg DAILY PO Last administered on 09:17; Start 08/17/17 at 12:00 Gabapentin (Neurontin) 300 mg TID PO Last administered on 08/22/17 09:17; Start 08/17/17 at 14:00 Ibuprofen (Motrin) 600 mg PRN Q6HRS PRN PO MILD PAIN Last administered on 18:45; Start 08/17/17 at 11:45 Losartan Potassium (Cozaar) 50 mg DAILY PO Last administered on 08/19/17 08:33 ; Start 08/17/17 at 12:00; Stop 08/20/17 at 12:34; Status DC Non-Formulary Medication 375 mg BID PRN PO PAIN; Start 08/17/17 at 11:30; Status UNV Sumatriptan Succinate (Imitrex) 100 mg PRN Q2HR PRN PO MIGRAINE HEADACHE; Start 08/17/17 at 11:45 Polyethylene Glycol (miraLAX PACKET) 17 gm PRN DAILY PRN PO CONSTIPATION (1ST CHOICE) Last administered on 08/22/17 09:50; Start 08/17/17 at 20:30 Vancomycin HCl 1 gm/Dextrose 250 ml @ 250 mls/hr Q12H IV Last administered on 08/18/17 17:11; Start 08/18/17 at 04:00; Stop 08/19/17 at 05:12; Status DC Vancomycin HCl 1 each 1X ONCE MC Last administered on 08/19/17 03:30; Start 08/19/17 at 03:30; Stop 08/19/17 at 03:31; Status DC Morphine Sulfate 2 mg PRN Q2HR PRN IV PAIN; Start 08/18/17 at 11:15 Vancomycin HCl 1.5 gm/Dextrose 500 ml @ 250 mls/hr Q12H IV ; Start 08/19/17 at 05:30; Stop 08/19/17 at 05:56; Status DC Vancomycin HCl 1 gm/Dextrose 250 ml @ 250 mls/hr Q12H IV Last administered on 08/21/17 05:18; Start 08/19/17 at 06:00; Stop 08/21/17 at 15:58; Status DC Active Scripts Active Morphine Sulfate 15 Mg Tablet 1 Tab PO PRN Q6-8HRS PRN Naproxen 375 Mg Tablet 375 Mg PO BID PRN Reported Calcium (Calcium Carbonate) 600 Mg Tablet 600 Mg PO DAILY Temazepam 30 Mg Capsule 1 Cap PO QHS Senna (Sennosides) 8.6 Mg Tablet 8.6 Mg PO Gabapentin 300 Mg Capsule 300 Mg PO TID Tizanidine Hcl 4 Mg Tablet 4 Mg PO PRN Q8HRS PRN Amitiza (Lubiprostone) 24 Mcg Capsule 24 Mcg PO BID Stool Softener (Docusate Sodium) 100 Mg Capsule 100 Mg PO DAILY Melatonin 5 Mg Tablet (Melatonin/Pyridoxine Hcl (B6)) 1 Each Tablet 1 Each PO HS Latuda (Lurasidone Hcl) 120 Mg Tablet 120 Mg PO DAILYWSUP Bupropion Xl (Bupropion Hcl) 300 Mg Tab.er.24h 300 Mg PO DAILY Alendronate Sodium 70 Mg Tablet 70 Mg PO WEEKLY Ibuprofen 600 Mg Tablet 600 Mg PO Q6H PRN Hydrocodone-Apap 5-325 (Hydrocodone Bit/Acetaminophen) 1 Each Tablet 1 Tab PO PRN Q6HRS PRN Vitamin D-3 (Cholecalciferol (Vitamin D3)) 2,000 Unit Tablet 5,000 Unit PO WEEKLY Losartan Potassium 100 Mg Tablet 50 Mg PO DAILY Amlodipine Besylate 10 Mg Tablet 10 Mg PO DAILY Atorvastatin Calcium 40 Mg Tablet 40 Mg PO DAILY Hydrochlorothiazide Capsule (Hydrochlorothiazide) 12.5 Mg Capsule 25 Mg PO DAILY Potassium Chloride 20 Meq Tab.er.prt 20 Meq PO DAILY Maxalt (Rizatriptan Benzoate) 10 Mg Tablet 10 Mg PO PRN PRN Clonazepam 1 Mg Tablet 1 Mg PO BID Vitals/I & O Vital Sign - Last 24 Hours 08/21/17 08/21/17 08/21/17 08/21/17 14:30 15:04 19:50 19:53 Temp 98.0 98.0 98.0 98.0 Pulse 85 103 Resp 16 18 B/P (MAP) 107/73 (84) 163/80 (107) Pulse Ox 95 93 92 96 O2 Delivery Room Air Nasal Cannula Room Air Room Air O2 Flow Rate 1.0 08/21/17 08/21/17 08/22/17 08/22/17 20:09 23:15 03:59 04:30 Temp 98.3 97.9 98.3 97.9 Pulse 87 88 Resp 18 18 B/P (MAP) 116/76 (89) 118/66 (83) Pulse Ox 91 95 O2 Delivery Room Air Room Air Room Air Nasal Cannula O2 Flow Rate 2.0 1108/22/17 08/22/17 08/22/17 07:00 08:00 08:35 11:00 Temp 98.8 98.6 98.8 98.6 Pulse 74 84 Resp 18 18 B/P (MAP) 121/76 (91) 119/77 (91) Pulse Ox 92 89 94 O2 Delivery Nasal Cannula Nasal Cannula Room Air Nasal Cannula O2 Flow Rate 2.0 2.0 2.0 08/22/17 11:29 O2 Delivery Nasal Cannula O2 Flow Rate 1.0 Nutrition Consultation Dietary Evaluation: Recommendations by RD: Increase Calorie Intake Comments: continue cardiac diet w/textures per [employer] (dysphagia III w/thin liquids) pt declines boost/ ensure supplements at this time Expected Outcomes/Goals: PO intake to meet > 75% est needs- met when po intake > 60% meals- met at times, goal ongoing Interpretation of weight loss: >10% in 6 months Malnutrition Findings: Food and Nutrition Intake (Mod: <75% est energy req 7days Weight Status: Appropriate TONI PRICE MD Aug 22, 2017 11:59
[2017-08-22] MEDS: LUBIPROSTONE 8 MCG CAPSULE PO SCH ×2 (12:05→15:47)
--- NOTE | 2017-08-22 14:01 | PDOC ---
PULMONARY PROGRESS NOTES Subjective PT WEAK NO INCREASE SOA Vitals Vital Signs Date Time Temp Pulse Resp B/P (MAP) Pulse Ox O2 Delivery O2 Flow Rate FiO2 08/22/17 11:29 Nasal Cannula 1.0 08/22/17 11:00 98.6 84 18 119/77 (91) 94 98.6 Lungs: Clear Cardiovascular: S1, S2 Abdomen: Soft, Non-tender Neuro Exam: Alert Extremities: No Edema Skin: Warm Labs Laboratory Tests Test 08/21/17 04:30 08/22/17 05:15 White Blood Count 4.4 x10^3/uL (4.0-11.0) 4.2 x10^3/uL (4.0-11.0) Red Blood Count 4.36 x10^6/uL (3.50-5.40) 4.36 x10^6/uL (3.50-5.40) Hemoglobin 12.6 g/dL (12.0-15.5) 12.5 g/dL (12.0-15.5) Hematocrit 38.1 % (36.0-47.0) 38.1 % (36.0-47.0) Mean Corpuscular Volume 88 fL (79-100) 87 fL (79-100) Mean Corpuscular Hemoglobin 29 pg (25-35) 29 pg (25-35) Mean Corpuscular Hemoglobin Concent 33 g/dL (31-37) 33 g/dL (31-37) Red Cell Distribution Width 15.7 % (11.5-14.5) 15.7 % (11.5-14.5) Platelet Count 173 x10^3/uL (140-400) 164 x10^3/uL (140-400) Neutrophils (%) (Auto) 57 % (31-73) 53 % (31-73) Lymphocytes (%) (Auto) 30 % (24-48) 33 % (24-48) Monocytes (%) (Auto) 10 % (0-9) 10 % (0-9) Eosinophils (%) (Auto) 3 % (0-3) 3 % (0-3) Basophils (%) (Auto) 1 % (0-3) 1 % (0-3) Neutrophils # (Auto) 2.5 x10^3uL (1.8-7.7) 2.2 x10^3uL (1.8-7.7) Lymphocytes # (Auto) 1.3 x10^3/uL (1.0-4.8) 1.4 x10^3/uL (1.0-4.8) Monocytes # (Auto) 0.4 x10^3/uL (0.0-1.1) 0.4 x10^3/uL (0.0-1.1) Eosinophils # (Auto) 0.1 x10^3/uL (0.0-0.7) 0.1 x10^3/uL (0.0-0.7) Basophils # (Auto) 0.0 x10^3/uL (0.0-0.2) 0.0 x10^3/uL (0.0-0.2) Sodium Level 142 mmol/L (136-145) 142 mmol/L (136-145) Potassium Level 3.8 mmol/L (3.5-5.1) 3.8 mmol/L (3.5-5.1) Chloride Level 101 mmol/L (98-107) 100 mmol/L (98-107) Carbon Dioxide Level 40 mmol/L (21-32) 40 mmol/L (21-32) Anion Gap 1 (6-14) 2 (6-14) Blood Urea Nitrogen 11 mg/dL (7-20) 12 mg/dL (7-20) Creatinine 0.5 mg/dL (0.6-1.0) 0.4 mg/dL (0.6-1.0) Estimated GFR (Cockcroft-Gault) 123.4 159.7 Glucose Level 97 mg/dL (70-99) 94 mg/dL (70-99) Calcium Level 9.2 mg/dL (8.5-10.1) 9.4 mg/dL (8.5-10.1) Laboratory Tests Test 08/22/17 05:15 White Blood Count 4.2 x10^3/uL (4.0-11.0) Red Blood Count 4.36 x10^6/uL (3.50-5.40) Hemoglobin 12.5 g/dL (12.0-15.5) Hematocrit 38.1 % (36.0-47.0) Mean Corpuscular Volume 87 fL (79-100) Mean Corpuscular Hemoglobin 29 pg (25-35) Mean Corpuscular Hemoglobin Concent 33 g/dL (31-37) Red Cell Distribution Width 15.7 % (11.5-14.5) Platelet Count 164 x10^3/uL (140-400) Neutrophils (%) (Auto) 53 % (31-73) Lymphocytes (%) (Auto) 33 % (24-48) Monocytes (%) (Auto) 10 % (0-9) Eosinophils (%) (Auto) 3 % (0-3) Basophils (%) (Auto) 1 % (0-3) Neutrophils # (Auto) 2.2 x10^3uL (1.8-7.7) Lymphocytes # (Auto) 1.4 x10^3/uL (1.0-4.8) Monocytes # (Auto) 0.4 x10^3/uL (0.0-1.1) Eosinophils # (Auto) 0.1 x10^3/uL (0.0-0.7) Basophils # (Auto) 0.0 x10^3/uL (0.0-0.2) Sodium Level 142 mmol/L (136-145) Potassium Level 3.8 mmol/L (3.5-5.1) Chloride Level 100 mmol/L (98-107) Carbon Dioxide Level 40 mmol/L (21-32) Anion Gap 2 (6-14) Blood Urea Nitrogen 12 mg/dL (7-20) Creatinine 0.4 mg/dL (0.6-1.0) Estimated GFR (Cockcroft-Gault) 159.7 Glucose Level 94 mg/dL (70-99) Calcium Level 9.4 mg/dL (8.5-10.1) Medications Active Scripts Medications Dose Route/Sig Max Daily Dose Days Date Category Calcium (Calcium Carbonate) 600 Mg Tablet 600 Mg PO DAILY 08/16/17 Reported Temazepam 30 Mg Capsule 1 Cap PO QHS 08/16/17 Reported Senna (Sennosides) 8.6 Mg Tablet 8.6 Mg PO 08/16/17 Reported Gabapentin 300 Mg Capsule 300 Mg PO TID 08/16/17 Reported Tizanidine Hcl 4 Mg Tablet 4 Mg PO PRN Q8HRS PRN 02/15/17 Reported Amitiza (Lubiprostone) 24 Mcg Capsule 24 Mcg PO BID 02/15/17 Reported Morphine Sulfate 15 Mg Tablet 1 Tab PO PRN Q6-8HRS PRN 02/13/17 Rx Naproxen 375 Mg Tablet 375 Mg PO BID PRN 12/13/16 Rx Stool Softener (Docusate Sodium) 100 Mg Capsule 100 Mg PO DAILY 09/19/15 Reported Melatonin 5 Mg Tablet (Melatonin/Pyridoxine Hcl (B6)) 1 Each Tablet 1 Each PO HS 09/19/15 Reported Latuda (Lurasidone Hcl) 120 Mg Tablet 120 Mg PO DAILYWSUP 09/19/15 Reported Bupropion Xl (Bupropion Hcl) 300 Mg Tab.er.24h 300 Mg PO DAILY 09/19/15 Reported Alendronate Sodium 70 Mg Tablet 70 Mg PO WEEKLY 09/19/15 Reported Ibuprofen 600 Mg Tablet 600 Mg PO Q6H PRN 09/19/15 Reported Hydrocodone-Apap 5-325 (Hydrocodone Bit/Acetaminophen) 1 Each Tablet 1 Tab PO PRN Q6HRS PRN 09/19/15 Reported Vitamin D-3 (Cholecalciferol (Vitamin D3)) 2,000 Unit Tablet 5,000 Unit PO WEEKLY 09/19/15 Reported Losartan Potassium 100 Mg Tablet 50 Mg PO DAILY 09/19/15 Reported Amlodipine Besylate 10 Mg Tablet 10 Mg PO DAILY 09/19/15 Reported Atorvastatin Calcium 40 Mg Tablet 40 Mg PO DAILY 09/19/15 Reported Hydrochlorothiazide Capsule (Hydrochlorothiazide) 12.5 Mg Capsule 25 Mg PO DAILY 09/19/15 Reported Potassium Chloride 20 Meq Tab.er.prt 20 Meq PO DAILY 09/19/15 Reported Maxalt (Rizatriptan Benzoate) 10 Mg Tablet 10 Mg PO PRN PRN 09/19/15 Reported Clonazepam 1 Mg Tablet 1 Mg PO BID 11/25/13 Reported Impression . 1. Acute hypoxemic-hypercapnic respiratory failure. 2. Metabolic encephalopathy, acute, present upon admission. 3. Possible pneumonia, gram-negative, gram-positive. 4. Hyponatremia. 5. Chronic pain syndrome. 6. Hypotension, possible sepsis. 7. Bipolar disorder. 8. Schizophrenia. Plan . SPOKE WITH DR PRICE CONTINUE THE SAME RESP STATUS IS COMPENSATED ORAL ZANDER CULLEN MD Aug 22, 2017 14:01
[2017-08-22 15:00] VITALS: BP 110/68
[2017-08-22] MEDS: LURASIDONE 40 MG TABLET. PO SCH (15:48)
[2017-08-22] MEDS: ENOXAPARIN 40 MG/0.4 ML SYRINGE. SQ SCH (15:49)
[2017-08-22] MEDS: ONDANSETRON PF 4 MG/2 ML VIAL. IV PRN (17:25)
[2017-08-22 19:00] VITALS: BP 109/68
[2017-08-22] MEDS: FAMOTIDINE 20 MG/2 ML VIAL IVP SCH (20:35)
[2017-08-22] MEDS: ATORVASTATIN CALCIUM 40 MG TABLET. PO SCH (20:38)
[2017-08-22] MEDS: LACTOBACILLUS RHAMNOSUS GG 1 CAPSULE. PO SCH (20:38)
[2017-08-22] MEDS: TEMAZEPAM 15 MG CAPSULE PO SCH (20:38)
[2017-08-22 23:00] VITALS: BP 101/61
[2017-08-23 03:00] VITALS: BP 115/70
[2017-08-23 05:49] LABS: BASO % 1 % (0-3); EOS % 3 % (0-3); HEMATOCRIT 36.7 % (36.0-47.0); HEMOGLOBIN 11.8 g/dL (12.0-15.5); LYMPH # 1.7 x10^3/uL (1.0-4.8); LYMPH % 39 % (24-48); MEAN CORPUSCULAR HEMOGLOBIN 29 pg (25-35); MEAN CORPUSCULAR HGB CONC 32 g/dL (31-37); MEAN CORPUSCULAR VOLUME 89 fL (79-100); MONO % 9 % (0-9); NEUT % 48 % (31-73); PLATELET COUNT 169 x10^3/uL (140-400); RED BLOOD COUNT 4.12 x10^6/uL (3.50-5.40); RED CELL DISTRIBUTION WIDTH 15.8 % (11.5-14.5); WHITE BLOOD COUNT 4.3 x10^3/uL (4.0-11.0)
[2017-08-23 06:08] LABS: CALCIUM 9.6 mg/dL (8.5-10.1); CREATININE 0.5 mg/dL (0.6-1.0); GFR 123.4; POTASSIUM 4.2 mmol/L (3.5-5.1)
[2017-08-23 07:00] VITALS: BP 99/63
[2017-08-23] MEDS: IPRATRPIUM/ALBUTEROL 0.5/2.5MG 3 ML NEBU. NEB SCH ×4 (07:34→19:14)
[2017-08-23] MEDS: clonazePAM 1 MG TABLET PO SCH ×2 (07:55→20:30)
[2017-08-23] MEDS: CALCIUM CARBONATE 500 MG TABLET PO SCH (07:55)
[2017-08-23] MEDS: LACTOBACILLUS RHAMNOSUS GG 1 CAPSULE. PO SCH ×2 (07:55→20:31)
[2017-08-23] MEDS: SENNOSIDES 8.6 MG TABLET PO SCH (07:56)
[2017-08-23] MEDS: GABAPENTIN 300 MG CAPSULE. PO SCH ×3 (07:56→20:30)
[2017-08-23] MEDS: POTASSIUM CHLORIDE 20 MEQ TABLET.ER. PO SCH (07:56)
[2017-08-23] MEDS: buPROPion XL 150 MG TAB.ER.24H. PO SCH (07:56)
--- NOTE | 2017-08-23 10:28 | PDOC ---
PROGRESS NOTES Chief Complaint Chief Complaint AMS, metabolic encephalopathy, MULTIFACTORIAL, RESOLVED acute hypoxic and hypercapnic resp failure, RESOLVED haP hyponatremia, 2/2 low po intake? REOSLVED sepsis RESOLVED chronic back pain HTN , NOW hypotension - labile hld schizophrenia BIPolar Gen weakness History of Present Illness History of Present Illness HAs been medically ready to dc since thursday but SO WEAK needs 2 person assist to go to commode, NO MORE SNU days (co pay $164 per day) Has current HH arranged - and that is all we can give her I attempted to dc today thursday but says no one has keys to her apt NO elise MEds are all PO PLAN: Dc thursday Dw MARILYNN Parry Vitals Vitals Vital Signs Date Time Temp Pulse Resp B/P (MAP) Pulse Ox O2 Delivery O2 Flow Rate FiO2 08/23/17 08:00 Nasal Cannula 2.0 08/23/17 07:36 93 08/23/17 07:00 98.4 80 18 99/63 (75) 98.4 Physical Exam General: Alert, Oriented X3, Cooperative, No acute distress Heart: Regular rate (SR), Normal S1, Normal S2, Other (2/6 systolic murmur to LLS border) Lungs: Clear Extremities: No cyanosis, Other (1+ bilateral LE pitting edema) Skin: No breakdown, No significant lesion Labs LABS Laboratory Tests Test 08/23/17 04:30 White Blood Count 4.3 x10^3/uL (4.0-11.0) Red Blood Count 4.12 x10^6/uL (3.50-5.40) Hemoglobin 11.8 g/dL (12.0-15.5) Hematocrit 36.7 % (36.0-47.0) Mean Corpuscular Volume 89 fL (79-100) Mean Corpuscular Hemoglobin 29 pg (25-35) Mean Corpuscular Hemoglobin Concent 32 g/dL (31-37) Red Cell Distribution Width 15.8 % (11.5-14.5) Platelet Count 169 x10^3/uL (140-400) Neutrophils (%) (Auto) 48 % (31-73) Lymphocytes (%) (Auto) 39 % (24-48) Monocytes (%) (Auto) 9 % (0-9) Eosinophils (%) (Auto) 3 % (0-3) Basophils (%) (Auto) 1 % (0-3) Neutrophils # (Auto) 2.1 x10^3uL (1.8-7.7) Lymphocytes # (Auto) 1.7 x10^3/uL (1.0-4.8) Monocytes # (Auto) 0.4 x10^3/uL (0.0-1.1) Eosinophils # (Auto) 0.1 x10^3/uL (0.0-0.7) Basophils # (Auto) 0.0 x10^3/uL (0.0-0.2) Sodium Level 140 mmol/L (136-145) Potassium Level 4.2 mmol/L (3.5-5.1) Chloride Level 98 mmol/L (98-107) Carbon Dioxide Level 41 mmol/L (21-32) Anion Gap 1 (6-14) Blood Urea Nitrogen 14 mg/dL (7-20) Creatinine 0.5 mg/dL (0.6-1.0) Estimated GFR (Cockcroft-Gault) 123.4 Glucose Level 103 mg/dL (70-99) Calcium Level 9.6 mg/dL (8.5-10.1) Review of Systems Review of Systems weak, all else is neg Assessment and Plan Assessmemt and Plan Problems Medical Problems: (1) Altered mental status Status: Acute (2) Respiratory failure with hypoxia and hypercapnia Status: Acute Problems: Comment Review of Relevant I have reviewed the following items brandie (where applicable) has been applied. Labs Laboratory Tests Test 08/22/17 05:15 08/23/17 04:30 White Blood Count 4.2 x10^3/uL (4.0-11.0) 4.3 x10^3/uL (4.0-11.0) Red Blood Count 4.36 x10^6/uL (3.50-5.40) 4.12 x10^6/uL (3.50-5.40) Hemoglobin 12.5 g/dL (12.0-15.5) 11.8 g/dL (12.0-15.5) Hematocrit 38.1 % (36.0-47.0) 36.7 % (36.0-47.0) Mean Corpuscular Volume 87 fL (79-100) 89 fL (79-100) Mean Corpuscular Hemoglobin 29 pg (25-35) 29 pg (25-35) Mean Corpuscular Hemoglobin Concent 33 g/dL (31-37) 32 g/dL (31-37) Red Cell Distribution Width 15.7 % (11.5-14.5) 15.8 % (11.5-14.5) Platelet Count 164 x10^3/uL (140-400) 169 x10^3/uL (140-400) Neutrophils (%) (Auto) 53 % (31-73) 48 % (31-73) Lymphocytes (%) (Auto) 33 % (24-48) 39 % (24-48) Monocytes (%) (Auto) 10 % (0-9) 9 % (0-9) Eosinophils (%) (Auto) 3 % (0-3) 3 % (0-3) Basophils (%) (Auto) 1 % (0-3) 1 % (0-3) Neutrophils # (Auto) 2.2 x10^3uL (1.8-7.7) 2.1 x10^3uL (1.8-7.7) Lymphocytes # (Auto) 1.4 x10^3/uL (1.0-4.8) 1.7 x10^3/uL (1.0-4.8) Monocytes # (Auto) 0.4 x10^3/uL (0.0-1.1) 0.4 x10^3/uL (0.0-1.1) Eosinophils # (Auto) 0.1 x10^3/uL (0.0-0.7) 0.1 x10^3/uL (0.0-0.7) Basophils # (Auto) 0.0 x10^3/uL (0.0-0.2) 0.0 x10^3/uL (0.0-0.2) Sodium Level 142 mmol/L (136-145) 140 mmol/L (136-145) Potassium Level 3.8 mmol/L (3.5-5.1) 4.2 mmol/L (3.5-5.1) Chloride Level 100 mmol/L (98-107) 98 mmol/L (98-107) Carbon Dioxide Level 40 mmol/L (21-32) 41 mmol/L (21-32) Anion Gap 2 (6-14) 1 (6-14) Blood Urea Nitrogen 12 mg/dL (7-20) 14 mg/dL (7-20) Creatinine 0.4 mg/dL (0.6-1.0) 0.5 mg/dL (0.6-1.0) Estimated GFR (Cockcroft-Gault) 159.7 123.4 Glucose Level 94 mg/dL (70-99) 103 mg/dL (70-99) Calcium Level 9.4 mg/dL (8.5-10.1) 9.6 mg/dL (8.5-10.1) Laboratory Tests Test 08/23/17 04:30 White Blood Count 4.3 x10^3/uL (4.0-11.0) Red Blood Count 4.12 x10^6/uL (3.50-5.40) Hemoglobin 11.8 g/dL (12.0-15.5) Hematocrit 36.7 % (36.0-47.0) Mean Corpuscular Volume 89 fL (79-100) Mean Corpuscular Hemoglobin 29 pg (25-35) Mean Corpuscular Hemoglobin Concent 32 g/dL (31-37) Red Cell Distribution Width 15.8 % (11.5-14.5) Platelet Count 169 x10^3/uL (140-400) Neutrophils (%) (Auto) 48 % (31-73) Lymphocytes (%) (Auto) 39 % (24-48) Monocytes (%) (Auto) 9 % (0-9) Eosinophils (%) (Auto) 3 % (0-3) Basophils (%) (Auto) 1 % (0-3) Neutrophils # (Auto) 2.1 x10^3uL (1.8-7.7) Lymphocytes # (Auto) 1.7 x10^3/uL (1.0-4.8) Monocytes # (Auto) 0.4 x10^3/uL (0.0-1.1) Eosinophils # (Auto) 0.1 x10^3/uL (0.0-0.7) Basophils # (Auto) 0.0 x10^3/uL (0.0-0.2) Sodium Level 140 mmol/L (136-145) Potassium Level 4.2 mmol/L (3.5-5.1) Chloride Level 98 mmol/L (98-107) Carbon Dioxide Level 41 mmol/L (21-32) Anion Gap 1 (6-14) Blood Urea Nitrogen 14 mg/dL (7-20) Creatinine 0.5 mg/dL (0.6-1.0) Estimated GFR (Cockcroft-Gault) 123.4 Glucose Level 103 mg/dL (70-99) Calcium Level 9.6 mg/dL (8.5-10.1) Microbiology 08/16/17 Blood Culture - Final, Complete NO GROWTH AFTER 5 DAYS Medications Current Medications Iohexol (Omnipaque 300 Mg/ml) 75 ml 1X ONCE IV ; Start 08/16/17 at 12:45; Stop 08/16/17 at 12:46; Status DC Info (Do NOT chart on this entry -- for MONITORING) 1 each PRN DAILY PRN MC SEE COMMENTS; Start 08/16/17 at 13:00; Stop 08/18/17 at 12:59; Status DC Cefepime HCl 2 gm/ Dextrose 100 ml @ 200 mls/hr Q8HRS IV ; Start 08/16/17 at 22 :00; Status Cancel Vancomycin HCl (Vanco Per Pharmacy) 1 each PRN DAILY PRN MC SEE COMMENTS Last administered on 08/21/17 12:14; Start 08/16/17 at 14:15; Stop 08/21/17 at 15: 58; Status DC Cefepime HCl (Maxipime) 2 gm 1X ONCE IVP Last administered on 08/16/17 14:32 ; Start 08/16/17 at 14:15; Stop 08/16/17 at 14:16; Status DC Vancomycin HCl 1.25 gm/Dextrose 250 ml @ 166.667 mls/hr 1X ONCE IV Last administered on 08/16/17 14:39; Start 08/16/17 at 14:15; Stop 08/16/17 at 15:44 ; Status DC Sodium Chloride 1,000 ml @ 1,380 mls/hr Q44M IV Last administered on 16:16; Start 08/16/17 at 14:34; Stop 08/16/17 at 15:34; Status DC Ondansetron HCl (Zofran) 4 mg PRN Q8HRS PRN IV NAUSEA/VOMITING; Start 08/16/17 at 14:45; Stop 08/17/17 at 01:29; Status DC Sodium Chloride 1,000 ml @ 125 mls/hr Q8H IV Last administered on 08/17/17 05 :03; Start 08/16/17 at 14:38; Stop 08/17/17 at 14:37; Status DC Albuterol/ Ipratropium (Duoneb) 3 ml RTQID NEB Last administered on 08/17/17 11:48; Start 08/16/17 at 16:00; Stop 08/17/17 at 15:59; Status DC Cefepime HCl (Maxipime) 2 gm Q8HRS IVP Last administered on 08/22/17 05:35; Start 08/16/17 at 22:00; Stop 08/22/17 at 13:14; Status DC Vancomycin HCl 750 mg/Dextrose 250 ml @ 250 mls/hr Q12H IV Last administered on 08/17/17 15:27; Start 08/17/17 at 03:00; Stop 08/18/17 at 03:37; Status DC Vancomycin HCl 1 each 1X ONCE MC Last administered on 08/18/17 02:30; Start 08/18/17 at 02:30; Stop 08/18/17 at 02:31; Status DC Sodium Chloride 1,000 ml @ 1,000 mls/hr 1X ONCE IV ; Start 08/16/17 at 15:15; Stop 08/16/17 at 16:14; Status DC Atorvastatin Calcium (Lipitor) 40 mg QHS PO Last administered on 08/22/17 20: 38; Start 08/16/17 at 21:00 Docusate Sodium (Colace) 100 mg DAILY PO ; Start 08/16/17 at 17:00; Stop at 17:00; Status DC Bupropion HCl (Wellbutrin Xl) 300 mg DAILY PO Last administered on 08/23/17 07:56; Start 08/17/17 at 09:00 Vitamin D (Vitamin D3) 5,000 unit WEEKLY PO Last administered on 08/17/17 09: 08; Start 08/17/17 at 09:00 Lubiprostone (Amitiza) 24 mcg BIDWMEALS PO Last administered on 08/22/17 15: 47; Start 08/16/17 at 17:00 Lurasidone HCl (Latuda) 120 mg DAILYWSUP PO Last administered on 08/22/17 15: 48; Start 08/16/17 at 17:00 Non-Formulary Medication 1 each HS PO ; Start 08/16/17 at 21:00; Status UNV Acetaminophen (Tylenol) 650 mg PRN Q6HRS PRN PO FEVER; Start 08/16/17 at 16:30 Ondansetron HCl (Zofran) 4 mg PRN Q6HRS PRN IV NAUSEA/VOMITING Last administered on 08/22/17 17:25; Start 08/16/17 at 16:30 Morphine Sulfate 2 mg PRN Q2HR PRN IV PAIN; Start 08/16/17 at 16:30; Stop 08/18 at 11:12; Status DC Tramadol HCl (Ultram) 50 mg PRN Q6HRS PRN PO MODERATE PAIN; Start 08/16/17 at 16:30 Hydralazine HCl (Apresoline Inj) 10 mg PRN Q4HRS PRN IVP ELEVATED BP, SEE COMMENTS; Start 08/16/17 at 16:30; Stop 08/20/17 at 12:34; Status DC Docusate Sodium (Colace) 100 mg PRN DAILY PRN PO CONSTIPATION (2ND CHOICE); Start 08/16/17 at 16:30 Albuterol/ Ipratropium (Duoneb) 3 ml RTQID NEB Last administered on 08/23/17 07:34; Start 08/16/17 at 17:00 Albuterol Sulfate (Ventolin Neb Soln) 2.5 mg PRN Q2HR PRN NEB SHORTNESS OF BREATH; Start 08/16/17 at 16:30 Guaifenesin (Mucinex) 600 mg BID PO Last administered on 08/23/17 07:55; Start 08/16/17 at 21:00 Enoxaparin Sodium (Lovenox 40mg Syringe) 40 mg Q24H SQ Last administered on 15:49; Start 08/16/17 at 17:00 Famotidine (Pepcid) 20 mg QHS IVP Last administered on 08/22/17 20:35; Start 08/16/17 at 21:00 Sodium Bicarbonate 50 meq 1X ONCE IV Last administered on 08/16/17 17:42; Start 08/16/17 at 17:30; Stop 08/16/17 at 17:38; Status DC Norepinephrine Bitartrate 250 ml @ As Directed STK-MED ONCE IV ; Start at 23:03; Stop 08/16/17 at 23:04; Status DC Norepinephrine Bitartrate 250 ml @ 0 mls/hr CONT PRN IV SEE I/O RECORD Last administered on 08/17/17 02:05; Start 08/17/17 at 01:15; Stop 08/19/17 at 08:21 ; Status DC Amlodipine Besylate (Norvasc) 10 mg DAILY PO Last administered on 08/19/17 08: 33; Start 08/17/17 at 12:00; Stop 08/20/17 at 12:34; Status DC Clonazepam (KlonoPIN) 1 mg BID PO Last administered on 08/23/17 07:55; Start 08/17/17 at 12:00 Hydrochlorothiazide (Hydrodiuril) 25 mg DAILY PO Last administered on 08:31; Start 08/17/17 at 12:00; Stop 08/20/17 at 12:34; Status DC Acetaminophen/ Hydrocodone Bitart (Lortab 5/325) 1 tab PRN Q6HRS PRN PO SEVERE PAIN; Start 08/17/17 at 11:30 Potassium Chloride (Klor-Con) 20 meq DAILYWBKFT PO Last administered on 07:56; Start 08/17/17 at 12:00 Sennosides (Senna) 8.6 mg DAILY PO Last administered on 08/23/17 07:56; Start 08/17/17 at 12:00 Temazepam (Restoril) 30 mg QHS PO Last administered on 08/22/17 20:38; Start 08/17/17 at 21:00 Tizanidine HCl (Zanaflex) 4 mg PRN Q8HRS PRN PO MUSCLE SPASMS; Start 08/17/17 at 11:30 Non-Formulary Medication 70 mg WEEKLY PO ; Start 08/24/17 at 09:00; Status UNV Calcium Carbonate/ Glycine (Oscal) 500 mg DAILY PO Last administered on 07:55; Start 08/17/17 at 12:00 Gabapentin (Neurontin) 300 mg TID PO Last administered on 08/23/17 07:56; Start 08/17/17 at 14:00 Ibuprofen (Motrin) 600 mg PRN Q6HRS PRN PO MILD PAIN Last administered on 18:45; Start 08/17/17 at 11:45 Losartan Potassium (Cozaar) 50 mg DAILY PO Last administered on 08/19/17 08:33 ; Start 08/17/17 at 12:00; Stop 08/20/17 at 12:34; Status DC Non-Formulary Medication 375 mg BID PRN PO PAIN; Start 08/17/17 at 11:30; Status UNV Sumatriptan Succinate (Imitrex) 100 mg PRN Q2HR PRN PO MIGRAINE HEADACHE; Start 08/17/17 at 11:45 Polyethylene Glycol (miraLAX PACKET) 17 gm PRN DAILY PRN PO CONSTIPATION (1ST CHOICE) Last administered on 08/22/17 09:50; Start 08/17/17 at 20:30 Vancomycin HCl 1 gm/Dextrose 250 ml @ 250 mls/hr Q12H IV Last administered on 08/18/17 17:11; Start 08/18/17 at 04:00; Stop 08/19/17 at 05:12; Status DC Vancomycin HCl 1 each 1X ONCE MC Last administered on 08/19/17 03:30; Start 08/19/17 at 03:30; Stop 08/19/17 at 03:31; Status DC Morphine Sulfate 2 mg PRN Q2HR PRN IV PAIN; Start 08/18/17 at 11:15 Vancomycin HCl 1.5 gm/Dextrose 500 ml @ 250 mls/hr Q12H IV ; Start 08/19/17 at 05:30; Stop 08/19/17 at 05:56; Status DC Vancomycin HCl 1 gm/Dextrose 250 ml @ 250 mls/hr Q12H IV Last administered on 08/21/17 05:18; Start 08/19/17 at 06:00; Stop 08/21/17 at 15:58; Status DC Levofloxacin (Levaquin) 250 mg DAILY06 PO Last administered on 08/23/17 05:59 ; Start 08/22/17 at 14:30 Lactobacillus Rhamnosus (Culturelle) 1 cap BID PO Last administered on t 07:55; Start 08/22/17 at 21:00 Active Scripts Active Morphine Sulfate 15 Mg Tablet 1 Tab PO PRN Q6-8HRS PRN Naproxen 375 Mg Tablet 375 Mg PO BID PRN Reported Calcium (Calcium Carbonate) 600 Mg Tablet 600 Mg PO DAILY Temazepam 30 Mg Capsule 1 Cap PO QHS Senna (Sennosides) 8.6 Mg Tablet 8.6 Mg PO Gabapentin 300 Mg Capsule 300 Mg PO TID Tizanidine Hcl 4 Mg Tablet 4 Mg PO PRN Q8HRS PRN Amitiza (Lubiprostone) 24 Mcg Capsule 24 Mcg PO BID Stool Softener (Docusate Sodium) 100 Mg Capsule 100 Mg PO DAILY Melatonin 5 Mg Tablet (Melatonin/Pyridoxine Hcl (B6)) 1 Each Tablet 1 Each PO HS Latuda (Lurasidone Hcl) 120 Mg Tablet 120 Mg PO DAILYWSUP Bupropion Xl (Bupropion Hcl) 300 Mg Tab.er.24h 300 Mg PO DAILY Alendronate Sodium 70 Mg Tablet 70 Mg PO WEEKLY Ibuprofen 600 Mg Tablet 600 Mg PO Q6H PRN Hydrocodone-Apap 5-325 (Hydrocodone Bit/Acetaminophen) 1 Each Tablet 1 Tab PO PRN Q6HRS PRN Vitamin D-3 (Cholecalciferol (Vitamin D3)) 2,000 Unit Tablet 5,000 Unit PO WEEKLY Losartan Potassium 100 Mg Tablet 50 Mg PO DAILY Amlodipine Besylate 10 Mg Tablet 10 Mg PO DAILY Atorvastatin Calcium 40 Mg Tablet 40 Mg PO DAILY Hydrochlorothiazide Capsule (Hydrochlorothiazide) 12.5 Mg Capsule 25 Mg PO DAILY Potassium Chloride 20 Meq Tab.er.prt 20 Meq PO DAILY Maxalt (Rizatriptan Benzoate) 10 Mg Tablet 10 Mg PO PRN PRN Clonazepam 1 Mg Tablet 1 Mg PO BID Vitals/I & O Vital Sign - Last 24 Hours 08/22/17 08/22/17 08/22/17 08/22/17 11:00 11:29 15:00 15:32 Temp 98.6 99.3 98.6 99.3 Pulse 84 84 Resp 18 18 B/P (MAP) 119/77 (91) 110/68 (82) Pulse Ox 94 95 O2 Delivery Nasal Cannula Nasal Cannula Nasal Cannula Nasal Cannula O2 Flow Rate 2.0 1.0 2.0 1.0 08/22/17 08/22/17 08/22/17 08/22/17 19:00 19:22 19:47 23:00 Temp 98.1 97.2 98.1 97.2 Pulse 88 75 Resp 18 18 B/P (MAP) 109/68 (82) 101/61 (74) Pulse Ox 96 84 99 O2 Delivery Nasal Cannula Room Air Nasal Cannula Nasal Cannula O2 Flow Rate 2.0 2.0 2.0 08/23/17 08/23/17 08/23/17 08/23/17 03:00 07:00 07:36 08:00 Temp 97.1 98.4 97.1 98.4 Pulse 80 80 Resp 18 18 B/P (MAP) 115/70 (85) 99/63 (75) Pulse Ox 98 97 93 O2 Delivery Nasal Cannula Nasal Cannula Room Air Nasal Cannula O2 Flow Rate 2.0 2.0 2.0 Nutrition Consultation Dietary Evaluation: Recommendations by RD: Increase Calorie Intake Comments: continue cardiac diet w/textures per TEMPORARY ADMINISTRATIVE ASSISTANT (dysphagia III w/thin liquids) pt declines boost/ ensure supplements at this time Expected Outcomes/Goals: PO intake to meet > 75% est needs- met when po intake > 60% meals- met at times, goal ongoing Interpretation of weight loss: >10% in 6 months Malnutrition Findings: Food and Nutrition Intake (Mod: <75% est energy req 7days Weight Status: Appropriate TONI PRICE MD Aug 23, 2017 10:28
[2017-08-23 11:00] VITALS: BP 96/54
[2017-08-23] MEDS: LUBIPROSTONE 8 MCG CAPSULE PO SCH ×2 (11:25→17:00)
[2017-08-23 15:00] VITALS: BP 110/61
[2017-08-23] MEDS: LURASIDONE 40 MG TABLET. PO SCH (17:00)
[2017-08-23] MEDS: ENOXAPARIN 40 MG/0.4 ML SYRINGE. SQ SCH (17:13)
--- NOTE | 2017-08-23 17:22 | PDOC ---
PULMONARY PROGRESS NOTES Subjective PT WEAK NO INCREASE SOA Vitals Vital Signs Date Time Temp Pulse Resp B/P (MAP) Pulse Ox O2 Delivery O2 Flow Rate FiO2 08/23/17 15:48 Nasal Cannula 1.0 08/23/17 15:00 98.3 89 18 110/61 (77) 97 98.3 Lungs: Clear Cardiovascular: S1, S2 Abdomen: Soft, Non-tender Neuro Exam: Alert Extremities: No Edema Skin: Warm Labs Laboratory Tests Test 08/22/17 05:15 08/23/17 04:30 White Blood Count 4.2 x10^3/uL (4.0-11.0) 4.3 x10^3/uL (4.0-11.0) Red Blood Count 4.36 x10^6/uL (3.50-5.40) 4.12 x10^6/uL (3.50-5.40) Hemoglobin 12.5 g/dL (12.0-15.5) 11.8 g/dL (12.0-15.5) Hematocrit 38.1 % (36.0-47.0) 36.7 % (36.0-47.0) Mean Corpuscular Volume 87 fL (79-100) 89 fL (79-100) Mean Corpuscular Hemoglobin 29 pg (25-35) 29 pg (25-35) Mean Corpuscular Hemoglobin Concent 33 g/dL (31-37) 32 g/dL (31-37) Red Cell Distribution Width 15.7 % (11.5-14.5) 15.8 % (11.5-14.5) Platelet Count 164 x10^3/uL (140-400) 169 x10^3/uL (140-400) Neutrophils (%) (Auto) 53 % (31-73) 48 % (31-73) Lymphocytes (%) (Auto) 33 % (24-48) 39 % (24-48) Monocytes (%) (Auto) 10 % (0-9) 9 % (0-9) Eosinophils (%) (Auto) 3 % (0-3) 3 % (0-3) Basophils (%) (Auto) 1 % (0-3) 1 % (0-3) Neutrophils # (Auto) 2.2 x10^3uL (1.8-7.7) 2.1 x10^3uL (1.8-7.7) Lymphocytes # (Auto) 1.4 x10^3/uL (1.0-4.8) 1.7 x10^3/uL (1.0-4.8) Monocytes # (Auto) 0.4 x10^3/uL (0.0-1.1) 0.4 x10^3/uL (0.0-1.1) Eosinophils # (Auto) 0.1 x10^3/uL (0.0-0.7) 0.1 x10^3/uL (0.0-0.7) Basophils # (Auto) 0.0 x10^3/uL (0.0-0.2) 0.0 x10^3/uL (0.0-0.2) Sodium Level 142 mmol/L (136-145) 140 mmol/L (136-145) Potassium Level 3.8 mmol/L (3.5-5.1) 4.2 mmol/L (3.5-5.1) Chloride Level 100 mmol/L (98-107) 98 mmol/L (98-107) Carbon Dioxide Level 40 mmol/L (21-32) 41 mmol/L (21-32) Anion Gap 2 (6-14) 1 (6-14) Blood Urea Nitrogen 12 mg/dL (7-20) 14 mg/dL (7-20) Creatinine 0.4 mg/dL (0.6-1.0) 0.5 mg/dL (0.6-1.0) Estimated GFR (Cockcroft-Gault) 159.7 123.4 Glucose Level 94 mg/dL (70-99) 103 mg/dL (70-99) Calcium Level 9.4 mg/dL (8.5-10.1) 9.6 mg/dL (8.5-10.1) Laboratory Tests Test 08/23/17 04:30 White Blood Count 4.3 x10^3/uL (4.0-11.0) Red Blood Count 4.12 x10^6/uL (3.50-5.40) Hemoglobin 11.8 g/dL (12.0-15.5) Hematocrit 36.7 % (36.0-47.0) Mean Corpuscular Volume 89 fL (79-100) Mean Corpuscular Hemoglobin 29 pg (25-35) Mean Corpuscular Hemoglobin Concent 32 g/dL (31-37) Red Cell Distribution Width 15.8 % (11.5-14.5) Platelet Count 169 x10^3/uL (140-400) Neutrophils (%) (Auto) 48 % (31-73) Lymphocytes (%) (Auto) 39 % (24-48) Monocytes (%) (Auto) 9 % (0-9) Eosinophils (%) (Auto) 3 % (0-3) Basophils (%) (Auto) 1 % (0-3) Neutrophils # (Auto) 2.1 x10^3uL (1.8-7.7) Lymphocytes # (Auto) 1.7 x10^3/uL (1.0-4.8) Monocytes # (Auto) 0.4 x10^3/uL (0.0-1.1) Eosinophils # (Auto) 0.1 x10^3/uL (0.0-0.7) Basophils # (Auto) 0.0 x10^3/uL (0.0-0.2) Sodium Level 140 mmol/L (136-145) Potassium Level 4.2 mmol/L (3.5-5.1) Chloride Level 98 mmol/L (98-107) Carbon Dioxide Level 41 mmol/L (21-32) Anion Gap 1 (6-14) Blood Urea Nitrogen 14 mg/dL (7-20) Creatinine 0.5 mg/dL (0.6-1.0) Estimated GFR (Cockcroft-Gault) 123.4 Glucose Level 103 mg/dL (70-99) Calcium Level 9.6 mg/dL (8.5-10.1) Medications Active Scripts Medications Dose Route/Sig Max Daily Dose Days Date Category Calcium (Calcium Carbonate) 600 Mg Tablet 600 Mg PO DAILY 08/16/17 Reported Temazepam 30 Mg Capsule 1 Cap PO QHS 08/16/17 Reported Senna (Sennosides) 8.6 Mg Tablet 8.6 Mg PO 08/16/17 Reported Gabapentin 300 Mg Capsule 300 Mg PO TID 08/16/17 Reported Tizanidine Hcl 4 Mg Tablet 4 Mg PO PRN Q8HRS PRN 02/15/17 Reported Amitiza (Lubiprostone) 24 Mcg Capsule 24 Mcg PO BID 02/15/17 Reported Morphine Sulfate 15 Mg Tablet 1 Tab PO PRN Q6-8HRS PRN 02/13/17 Rx Naproxen 375 Mg Tablet 375 Mg PO BID PRN 12/13/16 Rx Stool Softener (Docusate Sodium) 100 Mg Capsule 100 Mg PO DAILY 09/19/15 Reported Melatonin 5 Mg Tablet (Melatonin/Pyridoxine Hcl (B6)) 1 Each Tablet 1 Each PO HS 09/19/15 Reported Latuda (Lurasidone Hcl) 120 Mg Tablet 120 Mg PO DAILYWSUP 09/19/15 Reported Bupropion Xl (Bupropion Hcl) 300 Mg Tab.er.24h 300 Mg PO DAILY 09/19/15 Reported Alendronate Sodium 70 Mg Tablet 70 Mg PO WEEKLY 09/19/15 Reported Ibuprofen 600 Mg Tablet 600 Mg PO Q6H PRN 09/19/15 Reported Hydrocodone-Apap 5-325 (Hydrocodone Bit/Acetaminophen) 1 Each Tablet 1 Tab PO PRN Q6HRS PRN 09/19/15 Reported Vitamin D-3 (Cholecalciferol (Vitamin D3)) 2,000 Unit Tablet 5,000 Unit PO WEEKLY 09/19/15 Reported Losartan Potassium 100 Mg Tablet 50 Mg PO DAILY 09/19/15 Reported Amlodipine Besylate 10 Mg Tablet 10 Mg PO DAILY 09/19/15 Reported Atorvastatin Calcium 40 Mg Tablet 40 Mg PO DAILY 09/19/15 Reported Hydrochlorothiazide Capsule (Hydrochlorothiazide) 12.5 Mg Capsule 25 Mg PO DAILY 09/19/15 Reported Potassium Chloride 20 Meq Tab.er.prt 20 Meq PO DAILY 09/19/15 Reported Maxalt (Rizatriptan Benzoate) 10 Mg Tablet 10 Mg PO PRN PRN 09/19/15 Reported Clonazepam 1 Mg Tablet 1 Mg PO BID 11/25/13 Reported Impression . 1. Acute hypoxemic-hypercapnic respiratory failure. 2. Metabolic encephalopathy, acute, present upon admission. 3. Possible pneumonia, gram-negative, gram-positive. 4. Hyponatremia. 5. Chronic pain syndrome. 6. Hypotension, possible sepsis. 7. Bipolar disorder. 8. Schizophrenia. Plan . D/C IN AM CONTINUE THE SAME RESP STATUS IS COMPENSATED ORAL ZANDER CULLEN MD Aug 23, 2017 17:22
[2017-08-23 19:00] VITALS: BP 102/57
[2017-08-23] MEDS: ATORVASTATIN CALCIUM 40 MG TABLET. PO SCH (20:30)
[2017-08-23] MEDS: TEMAZEPAM 15 MG CAPSULE PO SCH (20:31)
[2017-08-23] MEDS: FAMOTIDINE 20 MG/2 ML VIAL IVP SCH (20:31)
[2017-08-23] MEDS: ONDANSETRON PF 4 MG/2 ML VIAL. IV PRN (20:31)
[2017-08-23 23:00] VITALS: BP 101/58
[2017-08-24 03:00] VITALS: BP 108/67
[2017-08-24 07:00] VITALS: BP 112/61
[2017-08-24 07:16] LABS: CALCIUM 8.8 mg/dL (8.5-10.1); CREATININE 0.5 mg/dL (0.6-1.0); GFR 123.4
[2017-08-24 07:23] LABS: BASO % 1 % (0-3); EOS % 2 % (0-3); HEMATOCRIT 35.8 % (36.0-47.0); HEMOGLOBIN 11.6 g/dL (12.0-15.5); LYMPH # 1.5 x10^3/uL (1.0-4.8); LYMPH % 34 % (24-48); MEAN CORPUSCULAR HEMOGLOBIN 29 pg (25-35); MEAN CORPUSCULAR HGB CONC 33 g/dL (31-37); MEAN CORPUSCULAR VOLUME 88 fL (79-100); MONO % 8 % (0-9); NEUT % 55 % (31-73); PLATELET COUNT 153 x10^3/uL (140-400); RED BLOOD COUNT 4.05 x10^6/uL (3.50-5.40); RED CELL DISTRIBUTION WIDTH 15.7 % (11.5-14.5); WHITE BLOOD COUNT 4.4 x10^3/uL (4.0-11.0)
[2017-08-24] MEDS: IPRATRPIUM/ALBUTEROL 0.5/2.5MG 3 ML NEBU. NEB SCH ×4 (07:25→20:05)
[2017-08-24] MEDS: clonazePAM 1 MG TABLET PO SCH ×2 (08:17→20:17)
[2017-08-24] MEDS: CHOLECALCIFEROL (VITAMIN D3) 5,000 UNIT CAPSULE PO SCH (08:17)
[2017-08-24] MEDS: LUBIPROSTONE 8 MCG CAPSULE PO SCH ×2 (08:17→17:01)
[2017-08-24] MEDS: buPROPion XL 150 MG TAB.ER.24H. PO SCH (08:17)
[2017-08-24] MEDS: LACTOBACILLUS RHAMNOSUS GG 1 CAPSULE. PO SCH ×2 (08:18→20:16)
[2017-08-24] MEDS: POTASSIUM CHLORIDE 20 MEQ TABLET.ER. PO SCH (08:18)
[2017-08-24] MEDS: GABAPENTIN 300 MG CAPSULE. PO SCH ×3 (08:18→20:17)
[2017-08-24] MEDS: SENNOSIDES 8.6 MG TABLET PO SCH (08:18)
[2017-08-24] MEDS: CALCIUM CARBONATE 500 MG TABLET PO SCH (08:18)
[2017-08-24] MEDS ORDERED: NON FORMULARY ITEM (Alendronate Sodium 70 MG) PO SCH (09:00)
--- NOTE | 2017-08-24 09:26 | PDOC ---
PULMONARY PROGRESS NOTES Subjective PT WEAK NO INCREASE SOA Vitals Vital Signs Date Time Temp Pulse Resp B/P (MAP) Pulse Ox O2 Delivery O2 Flow Rate FiO2 08/24/17 08:00 Room Air 08/24/17 07:27 96 2.0 08/24/17 07:00 97.9 82 19 112/61 (78) 97.9 General: Alert, No acute distress Lungs: Clear Cardiovascular: S1, S2 Abdomen: Soft, Non-tender Neuro Exam: Alert Extremities: No Edema Skin: Warm Labs Laboratory Tests Test 08/23/17 04:30 08/24/17 05:55 White Blood Count 4.3 x10^3/uL (4.0-11.0) 4.4 x10^3/uL (4.0-11.0) Red Blood Count 4.12 x10^6/uL (3.50-5.40) 4.05 x10^6/uL (3.50-5.40) Hemoglobin 11.8 g/dL (12.0-15.5) 11.6 g/dL (12.0-15.5) Hematocrit 36.7 % (36.0-47.0) 35.8 % (36.0-47.0) Mean Corpuscular Volume 89 fL (79-100) 88 fL (79-100) Mean Corpuscular Hemoglobin 29 pg (25-35) 29 pg (25-35) Mean Corpuscular Hemoglobin Concent 32 g/dL (31-37) 33 g/dL (31-37) Red Cell Distribution Width 15.8 % (11.5-14.5) 15.7 % (11.5-14.5) Platelet Count 169 x10^3/uL (140-400) 153 x10^3/uL (140-400) Neutrophils (%) (Auto) 48 % (31-73) 55 % (31-73) Lymphocytes (%) (Auto) 39 % (24-48) 34 % (24-48) Monocytes (%) (Auto) 9 % (0-9) 8 % (0-9) Eosinophils (%) (Auto) 3 % (0-3) 2 % (0-3) Basophils (%) (Auto) 1 % (0-3) 1 % (0-3) Neutrophils # (Auto) 2.1 x10^3uL (1.8-7.7) 2.4 x10^3uL (1.8-7.7) Lymphocytes # (Auto) 1.7 x10^3/uL (1.0-4.8) 1.5 x10^3/uL (1.0-4.8) Monocytes # (Auto) 0.4 x10^3/uL (0.0-1.1) 0.4 x10^3/uL (0.0-1.1) Eosinophils # (Auto) 0.1 x10^3/uL (0.0-0.7) 0.1 x10^3/uL (0.0-0.7) Basophils # (Auto) 0.0 x10^3/uL (0.0-0.2) 0.0 x10^3/uL (0.0-0.2) Sodium Level 140 mmol/L (136-145) 141 mmol/L (136-145) Potassium Level 4.2 mmol/L (3.5-5.1) 4.0 mmol/L (3.5-5.1) Chloride Level 98 mmol/L (98-107) 98 mmol/L (98-107) Carbon Dioxide Level 41 mmol/L (21-32) 43 mmol/L (21-32) Anion Gap 1 (6-14) 0 (6-14) Blood Urea Nitrogen 14 mg/dL (7-20) 14 mg/dL (7-20) Creatinine 0.5 mg/dL (0.6-1.0) 0.5 mg/dL (0.6-1.0) Estimated GFR (Cockcroft-Gault) 123.4 123.4 Glucose Level 103 mg/dL (70-99) 90 mg/dL (70-99) Calcium Level 9.6 mg/dL (8.5-10.1) 8.8 mg/dL (8.5-10.1) Laboratory Tests Test 08/24/17 05:55 White Blood Count 4.4 x10^3/uL (4.0-11.0) Red Blood Count 4.05 x10^6/uL (3.50-5.40) Hemoglobin 11.6 g/dL (12.0-15.5) Hematocrit 35.8 % (36.0-47.0) Mean Corpuscular Volume 88 fL (79-100) Mean Corpuscular Hemoglobin 29 pg (25-35) Mean Corpuscular Hemoglobin Concent 33 g/dL (31-37) Red Cell Distribution Width 15.7 % (11.5-14.5) Platelet Count 153 x10^3/uL (140-400) Neutrophils (%) (Auto) 55 % (31-73) Lymphocytes (%) (Auto) 34 % (24-48) Monocytes (%) (Auto) 8 % (0-9) Eosinophils (%) (Auto) 2 % (0-3) Basophils (%) (Auto) 1 % (0-3) Neutrophils # (Auto) 2.4 x10^3uL (1.8-7.7) Lymphocytes # (Auto) 1.5 x10^3/uL (1.0-4.8) Monocytes # (Auto) 0.4 x10^3/uL (0.0-1.1) Eosinophils # (Auto) 0.1 x10^3/uL (0.0-0.7) Basophils # (Auto) 0.0 x10^3/uL (0.0-0.2) Sodium Level 141 mmol/L (136-145) Potassium Level 4.0 mmol/L (3.5-5.1) Chloride Level 98 mmol/L (98-107) Carbon Dioxide Level 43 mmol/L (21-32) Anion Gap 0 (6-14) Blood Urea Nitrogen 14 mg/dL (7-20) Creatinine 0.5 mg/dL (0.6-1.0) Estimated GFR (Cockcroft-Gault) 123.4 Glucose Level 90 mg/dL (70-99) Calcium Level 8.8 mg/dL (8.5-10.1) Medications Active Scripts Medications Dose Route/Sig Max Daily Dose Days Date Category Calcium (Calcium Carbonate) 600 Mg Tablet 600 Mg PO DAILY 08/16/17 Reported Temazepam 30 Mg Capsule 1 Cap PO QHS 08/16/17 Reported Senna (Sennosides) 8.6 Mg Tablet 8.6 Mg PO 08/16/17 Reported Gabapentin 300 Mg Capsule 300 Mg PO TID 08/16/17 Reported Tizanidine Hcl 4 Mg Tablet 4 Mg PO PRN Q8HRS PRN 02/15/17 Reported Amitiza (Lubiprostone) 24 Mcg Capsule 24 Mcg PO BID 02/15/17 Reported Morphine Sulfate 15 Mg Tablet 1 Tab PO PRN Q6-8HRS PRN 02/13/17 Rx Naproxen 375 Mg Tablet 375 Mg PO BID PRN 12/13/16 Rx Stool Softener (Docusate Sodium) 100 Mg Capsule 100 Mg PO DAILY 09/19/15 Reported Melatonin 5 Mg Tablet (Melatonin/Pyridoxine Hcl (B6)) 1 Each Tablet 1 Each PO HS 09/19/15 Reported Latuda (Lurasidone Hcl) 120 Mg Tablet 120 Mg PO DAILYWSUP 09/19/15 Reported Bupropion Xl (Bupropion Hcl) 300 Mg Tab.er.24h 300 Mg PO DAILY 09/19/15 Reported Alendronate Sodium 70 Mg Tablet 70 Mg PO WEEKLY 09/19/15 Reported Ibuprofen 600 Mg Tablet 600 Mg PO Q6H PRN 09/19/15 Reported Hydrocodone-Apap 5-325 (Hydrocodone Bit/Acetaminophen) 1 Each Tablet 1 Tab PO PRN Q6HRS PRN 09/19/15 Reported Vitamin D-3 (Cholecalciferol (Vitamin D3)) 2,000 Unit Tablet 5,000 Unit PO WEEKLY 09/19/15 Reported Losartan Potassium 100 Mg Tablet 50 Mg PO DAILY 09/19/15 Reported Amlodipine Besylate 10 Mg Tablet 10 Mg PO DAILY 09/19/15 Reported Atorvastatin Calcium 40 Mg Tablet 40 Mg PO DAILY 09/19/15 Reported Hydrochlorothiazide Capsule (Hydrochlorothiazide) 12.5 Mg Capsule 25 Mg PO DAILY 09/19/15 Reported Potassium Chloride 20 Meq Tab.er.prt 20 Meq PO DAILY 09/19/15 Reported Maxalt (Rizatriptan Benzoate) 10 Mg Tablet 10 Mg PO PRN PRN 09/19/15 Reported Clonazepam 1 Mg Tablet 1 Mg PO BID 11/25/13 Reported Impression . 1. Acute hypoxemic-hypercapnic respiratory failure. 2. Metabolic encephalopathy, acute, present upon admission. improved 3. Possible pneumonia, gram-negative, gram-positive. 4. Hyponatremia. 5. Chronic pain syndrome. 6. Hypotension, possible sepsis. 7. Bipolar disorder. 8. Schizophrenia. 9. Abnormal CXR with elevated Tono-diaphragm/ associated atelectasis Plan . WOULD BENEFIT FROM DC TO [facility] CONTINUE THE SAME RESP STATUS IS COMPENSATED ORAL LEVAQUIN BARGER,TERRI U MD Aug 24, 2017 09:26
[2017-08-24 11:03] VITALS: BP 100/59
--- NOTE | 2017-08-24 15:06 | PDOC ---
PROGRESS NOTES Chief Complaint Chief Complaint AMS, metabolic encephalopathy, MULTIFACTORIAL, RESOLVED acute hypoxic and hypercapnic resp failure, RESOLVED haP hyponatremia, 2/2 low po intake? REOSLVED sepsis RESOLVED chronic back pain HTN , NOW hypotension - labile hld schizophrenia BIPolar Gen weakness PLAN: CONT LE[facility] suppotive care SW for rehab, hope dc tmr History of Present Illness History of Present Illness HAs been medically ready to dc since thursday but SO WEAK needs 2 person assist to go to commode, NO MORE SNU days (co pay $164 per day) Has current HH arranged - and that is all we can give her ROS: no fever, chills, sob or chest pain on NC 2 L LOOKS very weak, barely move independently pt told me nobody helps at home, lives a lone Vitals Vitals Vital Signs Date Time Temp Pulse Resp B/P (MAP) Pulse Ox O2 Delivery O2 Flow Rate FiO2 08/24/17 13:15 85 08/24/17 11:56 Nasal Cannula 2.0 08/24/17 11:03 97.7 72 20 100/59 (73) 97.7 Physical Exam General: Alert, Oriented X3, Cooperative, No acute distress Heart: Regular rate (SR), Normal S1, Normal S2, Other (2/6 systolic murmur to LLS border) Lungs: Clear Abdomen: Normal bowel sounds, Soft, No tenderness Extremities: No cyanosis, Other (1+ bilateral LE pitting edema) Skin: No breakdown, No significant lesion Labs LABS Laboratory Tests Test 08/24/17 05:55 White Blood Count 4.4 x10^3/uL (4.0-11.0) Red Blood Count 4.05 x10^6/uL (3.50-5.40) Hemoglobin 11.6 g/dL (12.0-15.5) Hematocrit 35.8 % (36.0-47.0) Mean Corpuscular Volume 88 fL (79-100) Mean Corpuscular Hemoglobin 29 pg (25-35) Mean Corpuscular Hemoglobin Concent 33 g/dL (31-37) Red Cell Distribution Width 15.7 % (11.5-14.5) Platelet Count 153 x10^3/uL (140-400) Neutrophils (%) (Auto) 55 % (31-73) Lymphocytes (%) (Auto) 34 % (24-48) Monocytes (%) (Auto) 8 % (0-9) Eosinophils (%) (Auto) 2 % (0-3) Basophils (%) (Auto) 1 % (0-3) Neutrophils # (Auto) 2.4 x10^3uL (1.8-7.7) Lymphocytes # (Auto) 1.5 x10^3/uL (1.0-4.8) Monocytes # (Auto) 0.4 x10^3/uL (0.0-1.1) Eosinophils # (Auto) 0.1 x10^3/uL (0.0-0.7) Basophils # (Auto) 0.0 x10^3/uL (0.0-0.2) Sodium Level 141 mmol/L (136-145) Potassium Level 4.0 mmol/L (3.5-5.1) Chloride Level 98 mmol/L (98-107) Carbon Dioxide Level 43 mmol/L (21-32) Anion Gap 0 (6-14) Blood Urea Nitrogen 14 mg/dL (7-20) Creatinine 0.5 mg/dL (0.6-1.0) Estimated GFR (Cockcroft-Gault) 123.4 Glucose Level 90 mg/dL (70-99) Calcium Level 8.8 mg/dL (8.5-10.1) Assessment and Plan Assessmemt and Plan Problems Medical Problems: (1) Altered mental status Status: Acute (2) Respiratory failure with hypoxia and hypercapnia Status: Acute Problems: Comment Review of Relevant I have reviewed the following items brandie (where applicable) has been applied. Labs Laboratory Tests Test 08/23/17 04:30 08/24/17 05:55 White Blood Count 4.3 x10^3/uL (4.0-11.0) 4.4 x10^3/uL (4.0-11.0) Red Blood Count 4.12 x10^6/uL (3.50-5.40) 4.05 x10^6/uL (3.50-5.40) Hemoglobin 11.8 g/dL (12.0-15.5) 11.6 g/dL (12.0-15.5) Hematocrit 36.7 % (36.0-47.0) 35.8 % (36.0-47.0) Mean Corpuscular Volume 89 fL (79-100) 88 fL (79-100) Mean Corpuscular Hemoglobin 29 pg (25-35) 29 pg (25-35) Mean Corpuscular Hemoglobin Concent 32 g/dL (31-37) 33 g/dL (31-37) Red Cell Distribution Width 15.8 % (11.5-14.5) 15.7 % (11.5-14.5) Platelet Count 169 x10^3/uL (140-400) 153 x10^3/uL (140-400) Neutrophils (%) (Auto) 48 % (31-73) 55 % (31-73) Lymphocytes (%) (Auto) 39 % (24-48) 34 % (24-48) Monocytes (%) (Auto) 9 % (0-9) 8 % (0-9) Eosinophils (%) (Auto) 3 % (0-3) 2 % (0-3) Basophils (%) (Auto) 1 % (0-3) 1 % (0-3) Neutrophils # (Auto) 2.1 x10^3uL (1.8-7.7) 2.4 x10^3uL (1.8-7.7) Lymphocytes # (Auto) 1.7 x10^3/uL (1.0-4.8) 1.5 x10^3/uL (1.0-4.8) Monocytes # (Auto) 0.4 x10^3/uL (0.0-1.1) 0.4 x10^3/uL (0.0-1.1) Eosinophils # (Auto) 0.1 x10^3/uL (0.0-0.7) 0.1 x10^3/uL (0.0-0.7) Basophils # (Auto) 0.0 x10^3/uL (0.0-0.2) 0.0 x10^3/uL (0.0-0.2) Sodium Level 140 mmol/L (136-145) 141 mmol/L (136-145) Potassium Level 4.2 mmol/L (3.5-5.1) 4.0 mmol/L (3.5-5.1) Chloride Level 98 mmol/L (98-107) 98 mmol/L (98-107) Carbon Dioxide Level 41 mmol/L (21-32) 43 mmol/L (21-32) Anion Gap 1 (6-14) 0 (6-14) Blood Urea Nitrogen 14 mg/dL (7-20) 14 mg/dL (7-20) Creatinine 0.5 mg/dL (0.6-1.0) 0.5 mg/dL (0.6-1.0) Estimated GFR (Cockcroft-Gault) 123.4 123.4 Glucose Level 103 mg/dL (70-99) 90 mg/dL (70-99) Calcium Level 9.6 mg/dL (8.5-10.1) 8.8 mg/dL (8.5-10.1) Laboratory Tests Test 08/24/17 05:55 White Blood Count 4.4 x10^3/uL (4.0-11.0) Red Blood Count 4.05 x10^6/uL (3.50-5.40) Hemoglobin 11.6 g/dL (12.0-15.5) Hematocrit 35.8 % (36.0-47.0) Mean Corpuscular Volume 88 fL (79-100) Mean Corpuscular Hemoglobin 29 pg (25-35) Mean Corpuscular Hemoglobin Concent 33 g/dL (31-37) Red Cell Distribution Width 15.7 % (11.5-14.5) Platelet Count 153 x10^3/uL (140-400) Neutrophils (%) (Auto) 55 % (31-73) Lymphocytes (%) (Auto) 34 % (24-48) Monocytes (%) (Auto) 8 % (0-9) Eosinophils (%) (Auto) 2 % (0-3) Basophils (%) (Auto) 1 % (0-3) Neutrophils # (Auto) 2.4 x10^3uL (1.8-7.7) Lymphocytes # (Auto) 1.5 x10^3/uL (1.0-4.8) Monocytes # (Auto) 0.4 x10^3/uL (0.0-1.1) Eosinophils # (Auto) 0.1 x10^3/uL (0.0-0.7) Basophils # (Auto) 0.0 x10^3/uL (0.0-0.2) Sodium Level 141 mmol/L (136-145) Potassium Level 4.0 mmol/L (3.5-5.1) Chloride Level 98 mmol/L (98-107) Carbon Dioxide Level 43 mmol/L (21-32) Anion Gap 0 (6-14) Blood Urea Nitrogen 14 mg/dL (7-20) Creatinine 0.5 mg/dL (0.6-1.0) Estimated GFR (Cockcroft-Gault) 123.4 Glucose Level 90 mg/dL (70-99) Calcium Level 8.8 mg/dL (8.5-10.1) Microbiology 08/16/17 Blood Culture - Final, Complete NO GROWTH AFTER 5 DAYS Medications Current Medications Iohexol (Omnipaque 300 Mg/ml) 75 ml 1X ONCE IV ; Start 08/16/17 at 12:45; Stop 08/16/17 at 12:46; Status DC Info (Do NOT chart on this entry -- for MONITORING) 1 each PRN DAILY PRN MC SEE COMMENTS; Start 08/16/17 at 13:00; Stop 08/18/17 at 12:59; Status DC Cefepime HCl 2 gm/ Dextrose 100 ml @ 200 mls/hr Q8HRS IV ; Start 08/16/17 at 22 :00; Status Cancel Vancomycin HCl (Vanco Per Pharmacy) 1 each PRN DAILY PRN MC SEE COMMENTS Last administered on 08/21/17 12:14; Start 08/16/17 at 14:15; Stop 08/21/17 at 15: 58; Status DC Cefepime HCl (Maxipime) 2 gm 1X ONCE IVP Last administered on 08/16/17 14:32 ; Start 08/16/17 at 14:15; Stop 08/16/17 at 14:16; Status DC Vancomycin HCl 1.25 gm/Dextrose 250 ml @ 166.667 mls/hr 1X ONCE IV Last administered on 08/16/17 14:39; Start 08/16/17 at 14:15; Stop 08/16/17 at 15:44 ; Status DC Sodium Chloride 1,000 ml @ 1,380 mls/hr Q44M IV Last administered on 16:16; Start 08/16/17 at 14:34; Stop 08/16/17 at 15:34; Status DC Ondansetron HCl (Zofran) 4 mg PRN Q8HRS PRN IV NAUSEA/VOMITING; Start 08/16/17 at 14:45; Stop 08/17/17 at 01:29; Status DC Sodium Chloride 1,000 ml @ 125 mls/hr Q8H IV Last administered on 08/17/17 05 :03; Start 08/16/17 at 14:38; Stop 08/17/17 at 14:37; Status DC Albuterol/ Ipratropium (Duoneb) 3 ml RTQID NEB Last administered on 08/17/17 11:48; Start 08/16/17 at 16:00; Stop 08/17/17 at 15:59; Status DC Cefepime HCl (Maxipime) 2 gm Q8HRS IVP Last administered on 08/22/17 05:35; Start 08/16/17 at 22:00; Stop 08/22/17 at 13:14; Status DC Vancomycin HCl 750 mg/Dextrose 250 ml @ 250 mls/hr Q12H IV Last administered on 08/17/17 15:27; Start 08/17/17 at 03:00; Stop 08/18/17 at 03:37; Status DC Vancomycin HCl 1 each 1X ONCE MC Last administered on 08/18/17 02:30; Start 08/18/17 at 02:30; Stop 08/18/17 at 02:31; Status DC Sodium Chloride 1,000 ml @ 1,000 mls/hr 1X ONCE IV ; Start 08/16/17 at 15:15; Stop 08/16/17 at 16:14; Status DC Atorvastatin Calcium (Lipitor) 40 mg QHS PO Last administered on 08/23/17 20: 30; Start 08/16/17 at 21:00 Docusate Sodium (Colace) 100 mg DAILY PO ; Start 08/16/17 at 17:00; Stop at 17:00; Status DC Bupropion HCl (Wellbutrin Xl) 300 mg DAILY PO Last administered on 08/24/17 08:17; Start 08/17/17 at 09:00 Vitamin D (Vitamin D3) 5,000 unit WEEKLY PO Last administered on 08/24/17 08: 17; Start 08/17/17 at 09:00 Lubiprostone (Amitiza) 24 mcg BIDWMEALS PO Last administered on 08/24/17 08: 17; Start 08/16/17 at 17:00 Lurasidone HCl (Latuda) 120 mg DAILYWSUP PO Last administered on 08/23/17 17: 00; Start 08/16/17 at 17:00 Non-Formulary Medication 1 each HS PO ; Start 08/16/17 at 21:00; Status UNV Acetaminophen (Tylenol) 650 mg PRN Q6HRS PRN PO FEVER; Start 08/16/17 at 16:30 Ondansetron HCl (Zofran) 4 mg PRN Q6HRS PRN IV NAUSEA/VOMITING Last administered on 08/23/17 20:31; Start 08/16/17 at 16:30 Morphine Sulfate 2 mg PRN Q2HR PRN IV PAIN; Start 08/16/17 at 16:30; Stop 08/18 at 11:12; Status DC Tramadol HCl (Ultram) 50 mg PRN Q6HRS PRN PO MODERATE PAIN; Start 08/16/17 at 16:30 Hydralazine HCl (Apresoline Inj) 10 mg PRN Q4HRS PRN IVP ELEVATED BP, SEE COMMENTS; Start 08/16/17 at 16:30; Stop 08/20/17 at 12:34; Status DC Docusate Sodium (Colace) 100 mg PRN DAILY PRN PO CONSTIPATION (2ND CHOICE); Start 08/16/17 at 16:30 Albuterol/ Ipratropium (Duoneb) 3 ml RTQID NEB Last administered on 08/24/17 11:55; Start 08/16/17 at 17:00 Albuterol Sulfate (Ventolin Neb Soln) 2.5 mg PRN Q2HR PRN NEB SHORTNESS OF BREATH; Start 08/16/17 at 16:30 Guaifenesin (Mucinex) 600 mg BID PO Last administered on 08/24/17 08:17; Start 08/16/17 at 21:00 Enoxaparin Sodium (Lovenox 40mg Syringe) 40 mg Q24H SQ Last administered on 17:13; Start 08/16/17 at 17:00 Famotidine (Pepcid Vial) 20 mg QHS IVP Last administered on 08/23/17 20:31; Start 08/16/17 at 21:00; Stop 08/24/17 at 12:34; Status DC Sodium Bicarbonate 50 meq 1X ONCE IV Last administered on 08/16/17 17:42; Start 08/16/17 at 17:30; Stop 08/16/17 at 17:38; Status DC Norepinephrine Bitartrate 250 ml @ As Directed STK-MED ONCE IV ; Start at 23:03; Stop 08/16/17 at 23:04; Status DC Norepinephrine Bitartrate 250 ml @ 0 mls/hr CONT PRN IV SEE I/O RECORD Last administered on 08/17/17 02:05; Start 08/17/17 at 01:15; Stop 08/19/17 at 08:21 ; Status DC Amlodipine Besylate (Norvasc) 10 mg DAILY PO Last administered on 08/19/17 08: 33; Start 08/17/17 at 12:00; Stop 08/20/17 at 12:34; Status DC Clonazepam (KlonoPIN) 1 mg BID PO Last administered on 08/24/17 08:17; Start 08/17/17 at 12:00 Hydrochlorothiazide (Hydrodiuril) 25 mg DAILY PO Last administered on 08:31; Start 08/17/17 at 12:00; Stop 08/20/17 at 12:34; Status DC Acetaminophen/ Hydrocodone Bitart (Lortab 5/325) 1 tab PRN Q6HRS PRN PO SEVERE PAIN; Start 08/17/17 at 11:30 Potassium Chloride (Klor-Con) 20 meq DAILYWBKFT PO Last administered on 08:18; Start 08/17/17 at 12:00 Sennosides (Senna) 8.6 mg DAILY PO Last administered on 08/24/17 08:18; Start 08/17/17 at 12:00 Temazepam (Restoril) 30 mg QHS PO Last administered on 08/23/17 20:31; Start 08/17/17 at 21:00 Tizanidine HCl (Zanaflex) 4 mg PRN Q8HRS PRN PO MUSCLE SPASMS; Start 08/17/17 at 11:30 Non-Formulary Medication 70 mg WEEKLY PO ; Start 08/24/17 at 09:00; Status UNV Calcium Carbonate/ Glycine (Oscal) 500 mg DAILY PO Last administered on 08:18; Start 08/17/17 at 12:00 Gabapentin (Neurontin) 300 mg TID PO Last administered on 08/24/17 13:16; Start 08/17/17 at 14:00 Ibuprofen (Motrin) 600 mg PRN Q6HRS PRN PO MILD PAIN Last administered on 18:45; Start 08/17/17 at 11:45 Losartan Potassium (Cozaar) 50 mg DAILY PO Last administered on 08/19/17 08:33 ; Start 08/17/17 at 12:00; Stop 08/20/17 at 12:34; Status DC Non-Formulary Medication 375 mg BID PRN PO PAIN; Start 08/17/17 at 11:30; Status UNV Sumatriptan Succinate (Imitrex) 100 mg PRN Q2HR PRN PO MIGRAINE HEADACHE; Start 08/17/17 at 11:45 Polyethylene Glycol (miraLAX PACKET) 17 gm PRN DAILY PRN PO CONSTIPATION (1ST CHOICE) Last administered on 08/22/17 09:50; Start 08/17/17 at 20:30 Vancomycin HCl 1 gm/Dextrose 250 ml @ 250 mls/hr Q12H IV Last administered on 08/18/17 17:11; Start 08/18/17 at 04:00; Stop 08/19/17 at 05:12; Status DC Vancomycin HCl 1 each 1X ONCE MC Last administered on 08/19/17 03:30; Start 08/19/17 at 03:30; Stop 08/19/17 at 03:31; Status DC Morphine Sulfate 2 mg PRN Q2HR PRN IV PAIN; Start 08/18/17 at 11:15 Vancomycin HCl 1.5 gm/Dextrose 500 ml @ 250 mls/hr Q12H IV ; Start 08/19/17 at 05:30; Stop 08/19/17 at 05:56; Status DC Vancomycin HCl 1 gm/Dextrose 250 ml @ 250 mls/hr Q12H IV Last administered on 08/21/17 05:18; Start 08/19/17 at 06:00; Stop 08/21/17 at 15:58; Status DC Levofloxacin (Levaquin) 250 mg DAILY06 PO Last administered on 08/24/17 06:01 ; Start 08/22/17 at 14:30 Lactobacillus Rhamnosus (Culturelle) 1 cap BID PO Last administered on 08:18; Start 08/22/17 at 21:00 Famotidine (Pepcid) 20 mg QHS PO ; Start 08/24/17 at 21:00 Active Scripts Active Levaquin (Levofloxacin) 500 Mg Tablet 1 Tab PO DAILY Naproxen 375 Mg Tablet 375 Mg PO BID PRN Reported Calcium (Calcium Carbonate) 600 Mg Tablet 600 Mg PO DAILY Temazepam 30 Mg Capsule 1 Cap PO QHS Senna (Sennosides) 8.6 Mg Tablet 8.6 Mg PO Gabapentin 300 Mg Capsule 300 Mg PO TID Tizanidine Hcl 4 Mg Tablet 4 Mg PO PRN Q8HRS PRN Amitiza (Lubiprostone) 24 Mcg Capsule 24 Mcg PO BID Stool Softener (Docusate Sodium) 100 Mg Capsule 100 Mg PO DAILY Melatonin 5 Mg Tablet (Melatonin/Pyridoxine Hcl (B6)) 1 Each Tablet 1 Each PO HS Latuda (Lurasidone Hcl) 120 Mg Tablet 120 Mg PO DAILYWSUP Bupropion Xl (Bupropion Hcl) 300 Mg Tab.er.24h 300 Mg PO DAILY Alendronate Sodium 70 Mg Tablet 70 Mg PO WEEKLY Ibuprofen 600 Mg Tablet 600 Mg PO Q6H PRN Hydrocodone-Apap 5-325 (Hydrocodone Bit/Acetaminophen) 1 Each Tablet 1 Tab PO PRN Q6HRS PRN Vitamin D-3 (Cholecalciferol (Vitamin D3)) 2,000 Unit Tablet 5,000 Unit PO WEEKLY Losartan Potassium 100 Mg Tablet 50 Mg PO DAILY Amlodipine Besylate 10 Mg Tablet 10 Mg PO DAILY Atorvastatin Calcium 40 Mg Tablet 40 Mg PO DAILY Hydrochlorothiazide Capsule (Hydrochlorothiazide) 12.5 Mg Capsule 25 Mg PO DAILY Potassium Chloride 20 Meq Tab.er.prt 20 Meq PO DAILY Maxalt (Rizatriptan Benzoate) 10 Mg Tablet 10 Mg PO PRN PRN Clonazepam 1 Mg Tablet 1 Mg PO BID Vitals/I & O Vital Sign - Last 24 Hours 08/23/17 08/23/17 08/23/17 08/23/17 15:48 19:00 19:15 20:00 Temp 99.1 99.1 Pulse 84 Resp 18 B/P (MAP) 102/57 (72) Pulse Ox 96 94 O2 Delivery Nasal Cannula Nasal Cannula Nasal Cannula O2 Flow Rate 1.0 2.0 2.0 2.0 08/23/17 08/24/17 08/24/17 08/24/17 23:00 03:00 07:00 07:27 Temp 97.7 97.0 97.9 97.7 97.0 97.9 Pulse 75 72 82 Resp 18 18 19 B/P (MAP) 101/58 (72) 108/67 (81) 112/61 (78) Pulse Ox 99 97 100 96 O2 Delivery Nasal Cannula Nasal Cannula Nasal Cannula Nasal Cannula O2 Flow Rate 2.0 2.0 2.0 2.0 08/24/17 08/24/17 08/24/17 08/24/17 08:00 08:25 11:03 11:56 Temp 97.7 97.7 Pulse 72 Resp 20 B/P (MAP) 100/59 (73) Pulse Ox 96 O2 Delivery Room Air Nasal Cannula Nasal Cannula Nasal Cannula O2 Flow Rate 1.0 2.0 2.0 08/24/17 13:15 Pulse Ox 85 Intake and Output 08/23/17 08/23/17 08/24/17 14:59 22:59 06:59 Intake Total 1600 ml 500 ml Balance 1600 ml 500 ml Nutrition Consultation Dietary Evaluation: Recommendations by RD: Increase Calorie Intake Comments: continue cardiac diet w/textures per [employer] (dysphagia III w/thin liquids) pt declines boost/ ensure supplements at this time Expected Outcomes/Goals: PO intake to meet > 75% est needs- met when po intake > 60% meals- met at times, goal ongoing Interpretation of weight loss: >10% in 6 months Malnutrition Findings: Food and Nutrition Intake (Mod: <75% est energy req 7days Weight Status: Appropriate MAYE YEUNG MD Aug 24, 2017 15:06
[2017-08-24 15:22] VITALS: BP 103/61
[2017-08-24] MEDS: ENOXAPARIN 40 MG/0.4 ML SYRINGE. SQ SCH (17:01)
[2017-08-24] MEDS: LURASIDONE 40 MG TABLET. PO SCH (17:01)
[2017-08-24 19:00] VITALS: BP 100/66
[2017-08-24] MEDS: ATORVASTATIN CALCIUM 40 MG TABLET. PO SCH (20:16)
[2017-08-24] MEDS: FAMOTIDINE 20 MG TABLET. PO SCH (20:17)
[2017-08-24] MEDS: TEMAZEPAM 15 MG CAPSULE PO SCH (20:17)
[2017-08-24] MEDS: ONDANSETRON PF 4 MG/2 ML VIAL. IV PRN (20:18)
[2017-08-24 23:00] VITALS: BP 104/64
[2017-08-25 03:00] VITALS: BP 106/62
[2017-08-25 04:19] LABS: BASO % 1 % (0-3); EOS % 2 % (0-3); HEMATOCRIT 34.9 % (36.0-47.0); HEMOGLOBIN 11.4 g/dL (12.0-15.5); LYMPH # 1.9 x10^3/uL (1.0-4.8); LYMPH % 37 % (24-48); MEAN CORPUSCULAR HEMOGLOBIN 29 pg (25-35); MEAN CORPUSCULAR HGB CONC 33 g/dL (31-37); MEAN CORPUSCULAR VOLUME 89 fL (79-100); MONO % 9 % (0-9); NEUT % 52 % (31-73); PLATELET COUNT 149 x10^3/uL (140-400); RED BLOOD COUNT 3.94 x10^6/uL (3.50-5.40); RED CELL DISTRIBUTION WIDTH 15.4 % (11.5-14.5); WHITE BLOOD COUNT 5.2 x10^3/uL (4.0-11.0)
[2017-08-25 04:41] LABS: CALCIUM 8.9 mg/dL (8.5-10.1); CREATININE 0.5 mg/dL (0.6-1.0); GFR 123.4; POTASSIUM 3.9 mmol/L (3.5-5.1)
[2017-08-25 07:00] VITALS: BP 113/65
[2017-08-25] MEDS: IPRATRPIUM/ALBUTEROL 0.5/2.5MG 3 ML NEBU. NEB SCH ×4 (07:53→20:08)
[2017-08-25] MEDS: CALCIUM CARBONATE 500 MG TABLET PO SCH (08:34)
[2017-08-25] MEDS: GABAPENTIN 300 MG CAPSULE. PO SCH ×3 (08:34→21:20)
[2017-08-25] MEDS: buPROPion XL 150 MG TAB.ER.24H. PO SCH (08:34)
[2017-08-25] MEDS: LACTOBACILLUS RHAMNOSUS GG 1 CAPSULE. PO SCH ×2 (08:34→21:19)
[2017-08-25] MEDS: SENNOSIDES 8.6 MG TABLET PO SCH (08:34)
[2017-08-25] MEDS: POTASSIUM CHLORIDE 20 MEQ TABLET.ER. PO SCH (08:35)
[2017-08-25] MEDS: clonazePAM 1 MG TABLET PO SCH ×2 (08:35→21:22)
[2017-08-25] MEDS: LUBIPROSTONE 8 MCG CAPSULE PO SCH ×2 (08:37→17:30)
[2017-08-25 11:00] VITALS: BP 103/59
--- NOTE | 2017-08-25 12:58 | PDOC ---
PULMONARY PROGRESS NOTES Subjective PT WEAK NO INCREASE SOA Vitals Vital Signs Date Time Temp Pulse Resp B/P (MAP) Pulse Ox O2 Delivery O2 Flow Rate FiO2 08/25/17 11:48 100 Nasal Cannula 2.0 08/25/17 11:00 97.7 79 19 103/59 (74) 97.7 General: Alert, No acute distress Lungs: Clear Cardiovascular: S1, S2 Abdomen: Soft, Non-tender Neuro Exam: Alert Extremities: No Edema Skin: Warm Labs Laboratory Tests Test 08/24/17 05:55 08/25/17 03:28 White Blood Count 4.4 x10^3/uL (4.0-11.0) 5.2 x10^3/uL (4.0-11.0) Red Blood Count 4.05 x10^6/uL (3.50-5.40) 3.94 x10^6/uL (3.50-5.40) Hemoglobin 11.6 g/dL (12.0-15.5) 11.4 g/dL (12.0-15.5) Hematocrit 35.8 % (36.0-47.0) 34.9 % (36.0-47.0) Mean Corpuscular Volume 88 fL (79-100) 89 fL (79-100) Mean Corpuscular Hemoglobin 29 pg (25-35) 29 pg (25-35) Mean Corpuscular Hemoglobin Concent 33 g/dL (31-37) 33 g/dL (31-37) Red Cell Distribution Width 15.7 % (11.5-14.5) 15.4 % (11.5-14.5) Platelet Count 153 x10^3/uL (140-400) 149 x10^3/uL (140-400) Neutrophils (%) (Auto) 55 % (31-73) 52 % (31-73) Lymphocytes (%) (Auto) 34 % (24-48) 37 % (24-48) Monocytes (%) (Auto) 8 % (0-9) 9 % (0-9) Eosinophils (%) (Auto) 2 % (0-3) 2 % (0-3) Basophils (%) (Auto) 1 % (0-3) 1 % (0-3) Neutrophils # (Auto) 2.4 x10^3uL (1.8-7.7) 2.7 x10^3uL (1.8-7.7) Lymphocytes # (Auto) 1.5 x10^3/uL (1.0-4.8) 1.9 x10^3/uL (1.0-4.8) Monocytes # (Auto) 0.4 x10^3/uL (0.0-1.1) 0.5 x10^3/uL (0.0-1.1) Eosinophils # (Auto) 0.1 x10^3/uL (0.0-0.7) 0.1 x10^3/uL (0.0-0.7) Basophils # (Auto) 0.0 x10^3/uL (0.0-0.2) 0.0 x10^3/uL (0.0-0.2) Sodium Level 141 mmol/L (136-145) 141 mmol/L (136-145) Potassium Level 4.0 mmol/L (3.5-5.1) 3.9 mmol/L (3.5-5.1) Chloride Level 98 mmol/L (98-107) 100 mmol/L (98-107) Carbon Dioxide Level 43 mmol/L (21-32) 48 mmol/L (21-32) Anion Gap 0 (6-14) -7 (6-14) Blood Urea Nitrogen 14 mg/dL (7-20) 13 mg/dL (7-20) Creatinine 0.5 mg/dL (0.6-1.0) 0.5 mg/dL (0.6-1.0) Estimated GFR (Cockcroft-Gault) 123.4 123.4 Glucose Level 90 mg/dL (70-99) 92 mg/dL (70-99) Calcium Level 8.8 mg/dL (8.5-10.1) 8.9 mg/dL (8.5-10.1) Laboratory Tests Test 08/25/17 03:28 White Blood Count 5.2 x10^3/uL (4.0-11.0) Red Blood Count 3.94 x10^6/uL (3.50-5.40) Hemoglobin 11.4 g/dL (12.0-15.5) Hematocrit 34.9 % (36.0-47.0) Mean Corpuscular Volume 89 fL (79-100) Mean Corpuscular Hemoglobin 29 pg (25-35) Mean Corpuscular Hemoglobin Concent 33 g/dL (31-37) Red Cell Distribution Width 15.4 % (11.5-14.5) Platelet Count 149 x10^3/uL (140-400) Neutrophils (%) (Auto) 52 % (31-73) Lymphocytes (%) (Auto) 37 % (24-48) Monocytes (%) (Auto) 9 % (0-9) Eosinophils (%) (Auto) 2 % (0-3) Basophils (%) (Auto) 1 % (0-3) Neutrophils # (Auto) 2.7 x10^3uL (1.8-7.7) Lymphocytes # (Auto) 1.9 x10^3/uL (1.0-4.8) Monocytes # (Auto) 0.5 x10^3/uL (0.0-1.1) Eosinophils # (Auto) 0.1 x10^3/uL (0.0-0.7) Basophils # (Auto) 0.0 x10^3/uL (0.0-0.2) Sodium Level 141 mmol/L (136-145) Potassium Level 3.9 mmol/L (3.5-5.1) Chloride Level 100 mmol/L (98-107) Carbon Dioxide Level 48 mmol/L (21-32) Anion Gap -7 (6-14) Blood Urea Nitrogen 13 mg/dL (7-20) Creatinine 0.5 mg/dL (0.6-1.0) Estimated GFR (Cockcroft-Gault) 123.4 Glucose Level 92 mg/dL (70-99) Calcium Level 8.9 mg/dL (8.5-10.1) Medications Active Scripts Medications Dose Route/Sig Max Daily Dose Days Date Category Calcium (Calcium Carbonate) 600 Mg Tablet 600 Mg PO DAILY 08/16/17 Reported Temazepam 30 Mg Capsule 1 Cap PO QHS 08/16/17 Reported Senna (Sennosides) 8.6 Mg Tablet 8.6 Mg PO 08/16/17 Reported Gabapentin 300 Mg Capsule 300 Mg PO TID 08/16/17 Reported Tizanidine Hcl 4 Mg Tablet 4 Mg PO PRN Q8HRS PRN 02/15/17 Reported Amitiza (Lubiprostone) 24 Mcg Capsule 24 Mcg PO BID 02/15/17 Reported Morphine Sulfate 15 Mg Tablet 1 Tab PO PRN Q6-8HRS PRN 02/13/17 Rx Naproxen 375 Mg Tablet 375 Mg PO BID PRN 12/13/16 Rx Stool Softener (Docusate Sodium) 100 Mg Capsule 100 Mg PO DAILY 09/19/15 Reported Melatonin 5 Mg Tablet (Melatonin/Pyridoxine Hcl (B6)) 1 Each Tablet 1 Each PO HS 09/19/15 Reported Latuda (Lurasidone Hcl) 120 Mg Tablet 120 Mg PO DAILYWSUP 09/19/15 Reported Bupropion Xl (Bupropion Hcl) 300 Mg Tab.er.24h 300 Mg PO DAILY 09/19/15 Reported Alendronate Sodium 70 Mg Tablet 70 Mg PO WEEKLY 09/19/15 Reported Ibuprofen 600 Mg Tablet 600 Mg PO Q6H PRN 09/19/15 Reported Hydrocodone-Apap 5-325 (Hydrocodone Bit/Acetaminophen) 1 Each Tablet 1 Tab PO PRN Q6HRS PRN 09/19/15 Reported Vitamin D-3 (Cholecalciferol (Vitamin D3)) 2,000 Unit Tablet 5,000 Unit PO WEEKLY 09/19/15 Reported Losartan Potassium 100 Mg Tablet 50 Mg PO DAILY 09/19/15 Reported Amlodipine Besylate 10 Mg Tablet 10 Mg PO DAILY 09/19/15 Reported Atorvastatin Calcium 40 Mg Tablet 40 Mg PO DAILY 09/19/15 Reported Hydrochlorothiazide Capsule (Hydrochlorothiazide) 12.5 Mg Capsule 25 Mg PO DAILY 09/19/15 Reported Potassium Chloride 20 Meq Tab.er.prt 20 Meq PO DAILY 09/19/15 Reported Maxalt (Rizatriptan Benzoate) 10 Mg Tablet 10 Mg PO PRN PRN 09/19/15 Reported Clonazepam 1 Mg Tablet 1 Mg PO BID 11/25/13 Reported Impression . 1. Acute hypoxemic-hypercapnic respiratory failure. 2. Metabolic encephalopathy, acute, present upon admission. improved 3. Possible pneumonia, gram-negative, gram-positive. 4. Hyponatremia. 5. Chronic pain syndrome. 6. Hypotension, possible sepsis. 7. Bipolar disorder. 8. Schizophrenia. 9. Abnormal CXR with elevated Tono-diaphragm/ associated atelectasis Plan . WOULD BENEFIT FROM DC TO SKILL CARE/ UNFORTUNATELY NO SKILL DAYS LEFT DYSPHAGIA DIET REHAB RESP STATUS IS COMPENSATED ORAL LEVAQUIN OXYGEN TERRI BARGER MD Aug 25, 2017 12:58
[2017-08-25] MEDS: ONDANSETRON PF 4 MG/2 ML VIAL. IV PRN (13:48)
[2017-08-25 15:00] VITALS: BP 144/82
--- NOTE | 2017-08-25 15:32 | PDOC ---
PROGRESS NOTES Chief Complaint Chief Complaint AMS, metabolic encephalopathy, MULTIFACTORIAL, RESOLVED acute hypoxic and hypercapnic resp failure, RESOLVED haP hyponatremia, 2/2 low po intake? REOSLVED sepsis RESOLVED chronic back pain HTN , NOW hypotension - labile hld schizophrenia BIPolar Gen weakness PLAN: CONT LEvaquin suppotive care I TALKed to SW, PTOT pt is too weak to be dced home, no SNF OR REHAB Days left. pt has daycare provider coming home 4 times per week, , 3 hours per time. hope pt can improve soon and dc with HH. History of Present Illness History of Present Illness HAs been medically ready to dc since thursday but SO WEAK needs 2 person assist to go to commode, NO MORE SNU days (co pay $164 per day) Has current HH arranged - and that is all we can give her ROS: no fever, chills, sob or chest pain on NC 2 L LOOKS very weak, barely move independently Vitals Vitals Vital Signs Date Time Temp Pulse Resp B/P (MAP) Pulse Ox O2 Delivery O2 Flow Rate FiO2 08/25/17 11:48 100 Nasal Cannula 2.0 08/25/17 11:00 97.7 79 19 103/59 (74) 97.7 Physical Exam General: Alert, Oriented X3, Cooperative, No acute distress Heart: Regular rate (SR), Normal S1, Normal S2, Other (2/6 systolic murmur to LLS border) Lungs: Clear Abdomen: Normal bowel sounds, Soft, No tenderness Extremities: No cyanosis, Other (1+ bilateral LE pitting edema) Skin: No breakdown, No significant lesion Labs LABS Laboratory Tests Test 08/25/17 03:28 White Blood Count 5.2 x10^3/uL (4.0-11.0) Red Blood Count 3.94 x10^6/uL (3.50-5.40) Hemoglobin 11.4 g/dL (12.0-15.5) Hematocrit 34.9 % (36.0-47.0) Mean Corpuscular Volume 89 fL (79-100) Mean Corpuscular Hemoglobin 29 pg (25-35) Mean Corpuscular Hemoglobin Concent 33 g/dL (31-37) Red Cell Distribution Width 15.4 % (11.5-14.5) Platelet Count 149 x10^3/uL (140-400) Neutrophils (%) (Auto) 52 % (31-73) Lymphocytes (%) (Auto) 37 % (24-48) Monocytes (%) (Auto) 9 % (0-9) Eosinophils (%) (Auto) 2 % (0-3) Basophils (%) (Auto) 1 % (0-3) Neutrophils # (Auto) 2.7 x10^3uL (1.8-7.7) Lymphocytes # (Auto) 1.9 x10^3/uL (1.0-4.8) Monocytes # (Auto) 0.5 x10^3/uL (0.0-1.1) Eosinophils # (Auto) 0.1 x10^3/uL (0.0-0.7) Basophils # (Auto) 0.0 x10^3/uL (0.0-0.2) Sodium Level 141 mmol/L (136-145) Potassium Level 3.9 mmol/L (3.5-5.1) Chloride Level 100 mmol/L (98-107) Carbon Dioxide Level 48 mmol/L (21-32) Anion Gap -7 (6-14) Blood Urea Nitrogen 13 mg/dL (7-20) Creatinine 0.5 mg/dL (0.6-1.0) Estimated GFR (Cockcroft-Gault) 123.4 Glucose Level 92 mg/dL (70-99) Calcium Level 8.9 mg/dL (8.5-10.1) Assessment and Plan Assessmemt and Plan Problems Medical Problems: (1) Altered mental status Status: Acute (2) Respiratory failure with hypoxia and hypercapnia Status: Acute Problems: Comment Review of Relevant I have reviewed the following items brandie (where applicable) has been applied. Labs Laboratory Tests Test 08/24/17 05:55 08/25/17 03:28 White Blood Count 4.4 x10^3/uL (4.0-11.0) 5.2 x10^3/uL (4.0-11.0) Red Blood Count 4.05 x10^6/uL (3.50-5.40) 3.94 x10^6/uL (3.50-5.40) Hemoglobin 11.6 g/dL (12.0-15.5) 11.4 g/dL (12.0-15.5) Hematocrit 35.8 % (36.0-47.0) 34.9 % (36.0-47.0) Mean Corpuscular Volume 88 fL (79-100) 89 fL (79-100) Mean Corpuscular Hemoglobin 29 pg (25-35) 29 pg (25-35) Mean Corpuscular Hemoglobin Concent 33 g/dL (31-37) 33 g/dL (31-37) Red Cell Distribution Width 15.7 % (11.5-14.5) 15.4 % (11.5-14.5) Platelet Count 153 x10^3/uL (140-400) 149 x10^3/uL (140-400) Neutrophils (%) (Auto) 55 % (31-73) 52 % (31-73) Lymphocytes (%) (Auto) 34 % (24-48) 37 % (24-48) Monocytes (%) (Auto) 8 % (0-9) 9 % (0-9) Eosinophils (%) (Auto) 2 % (0-3) 2 % (0-3) Basophils (%) (Auto) 1 % (0-3) 1 % (0-3) Neutrophils # (Auto) 2.4 x10^3uL (1.8-7.7) 2.7 x10^3uL (1.8-7.7) Lymphocytes # (Auto) 1.5 x10^3/uL (1.0-4.8) 1.9 x10^3/uL (1.0-4.8) Monocytes # (Auto) 0.4 x10^3/uL (0.0-1.1) 0.5 x10^3/uL (0.0-1.1) Eosinophils # (Auto) 0.1 x10^3/uL (0.0-0.7) 0.1 x10^3/uL (0.0-0.7) Basophils # (Auto) 0.0 x10^3/uL (0.0-0.2) 0.0 x10^3/uL (0.0-0.2) Sodium Level 141 mmol/L (136-145) 141 mmol/L (136-145) Potassium Level 4.0 mmol/L (3.5-5.1) 3.9 mmol/L (3.5-5.1) Chloride Level 98 mmol/L (98-107) 100 mmol/L (98-107) Carbon Dioxide Level 43 mmol/L (21-32) 48 mmol/L (21-32) Anion Gap 0 (6-14) -7 (6-14) Blood Urea Nitrogen 14 mg/dL (7-20) 13 mg/dL (7-20) Creatinine 0.5 mg/dL (0.6-1.0) 0.5 mg/dL (0.6-1.0) Estimated GFR (Cockcroft-Gault) 123.4 123.4 Glucose Level 90 mg/dL (70-99) 92 mg/dL (70-99) Calcium Level 8.8 mg/dL (8.5-10.1) 8.9 mg/dL (8.5-10.1) Laboratory Tests Test 08/25/17 03:28 White Blood Count 5.2 x10^3/uL (4.0-11.0) Red Blood Count 3.94 x10^6/uL (3.50-5.40) Hemoglobin 11.4 g/dL (12.0-15.5) Hematocrit 34.9 % (36.0-47.0) Mean Corpuscular Volume 89 fL (79-100) Mean Corpuscular Hemoglobin 29 pg (25-35) Mean Corpuscular Hemoglobin Concent 33 g/dL (31-37) Red Cell Distribution Width 15.4 % (11.5-14.5) Platelet Count 149 x10^3/uL (140-400) Neutrophils (%) (Auto) 52 % (31-73) Lymphocytes (%) (Auto) 37 % (24-48) Monocytes (%) (Auto) 9 % (0-9) Eosinophils (%) (Auto) 2 % (0-3) Basophils (%) (Auto) 1 % (0-3) Neutrophils # (Auto) 2.7 x10^3uL (1.8-7.7) Lymphocytes # (Auto) 1.9 x10^3/uL (1.0-4.8) Monocytes # (Auto) 0.5 x10^3/uL (0.0-1.1) Eosinophils # (Auto) 0.1 x10^3/uL (0.0-0.7) Basophils # (Auto) 0.0 x10^3/uL (0.0-0.2) Sodium Level 141 mmol/L (136-145) Potassium Level 3.9 mmol/L (3.5-5.1) Chloride Level 100 mmol/L (98-107) Carbon Dioxide Level 48 mmol/L (21-32) Anion Gap -7 (6-14) Blood Urea Nitrogen 13 mg/dL (7-20) Creatinine 0.5 mg/dL (0.6-1.0) Estimated GFR (Cockcroft-Gault) 123.4 Glucose Level 92 mg/dL (70-99) Calcium Level 8.9 mg/dL (8.5-10.1) Microbiology 08/16/17 Blood Culture - Final, Complete NO GROWTH AFTER 5 DAYS Medications Current Medications Iohexol (Omnipaque 300 Mg/ml) 75 ml 1X ONCE IV ; Start 08/16/17 at 12:45; Stop 08/16/17 at 12:46; Status DC Info (Do NOT chart on this entry -- for MONITORING) 1 each PRN DAILY PRN MC SEE COMMENTS; Start 08/16/17 at 13:00; Stop 08/18/17 at 12:59; Status DC Cefepime HCl 2 gm/ Dextrose 100 ml @ 200 mls/hr Q8HRS IV ; Start 08/16/17 at 22 :00; Status Cancel Vancomycin HCl (Vanco Per Pharmacy) 1 each PRN DAILY PRN MC SEE COMMENTS Last administered on 08/21/17 12:14; Start 08/16/17 at 14:15; Stop 08/21/17 at 15: 58; Status DC Cefepime HCl (Maxipime) 2 gm 1X ONCE IVP Last administered on 08/16/17 14:32 ; Start 08/16/17 at 14:15; Stop 08/16/17 at 14:16; Status DC Vancomycin HCl 1.25 gm/Dextrose 250 ml @ 166.667 mls/hr 1X ONCE IV Last administered on 08/16/17 14:39; Start 08/16/17 at 14:15; Stop 08/16/17 at 15:44 ; Status DC Sodium Chloride 1,000 ml @ 1,380 mls/hr Q44M IV Last administered on 16:16; Start 08/16/17 at 14:34; Stop 08/16/17 at 15:34; Status DC Ondansetron HCl (Zofran) 4 mg PRN Q8HRS PRN IV NAUSEA/VOMITING; Start 08/16/17 at 14:45; Stop 08/17/17 at 01:29; Status DC Sodium Chloride 1,000 ml @ 125 mls/hr Q8H IV Last administered on 08/17/17 05 :03; Start 08/16/17 at 14:38; Stop 08/17/17 at 14:37; Status DC Albuterol/ Ipratropium (Duoneb) 3 ml RTQID NEB Last administered on 08/17/17 11:48; Start 08/16/17 at 16:00; Stop 08/17/17 at 15:59; Status DC Cefepime HCl (Maxipime) 2 gm Q8HRS IVP Last administered on 08/22/17 05:35; Start 08/16/17 at 22:00; Stop 08/22/17 at 13:14; Status DC Vancomycin HCl 750 mg/Dextrose 250 ml @ 250 mls/hr Q12H IV Last administered on 08/17/17 15:27; Start 08/17/17 at 03:00; Stop 08/18/17 at 03:37; Status DC Vancomycin HCl 1 each 1X ONCE MC Last administered on 08/18/17 02:30; Start 08/18/17 at 02:30; Stop 08/18/17 at 02:31; Status DC Sodium Chloride 1,000 ml @ 1,000 mls/hr 1X ONCE IV ; Start 08/16/17 at 15:15; Stop 08/16/17 at 16:14; Status DC Atorvastatin Calcium (Lipitor) 40 mg QHS PO Last administered on 08/24/17 20: 16; Start 08/16/17 at 21:00 Docusate Sodium (Colace) 100 mg DAILY PO ; Start 08/16/17 at 17:00; Stop at 17:00; Status DC Bupropion HCl (Wellbutrin Xl) 300 mg DAILY PO Last administered on 08/25/17 08:34; Start 08/17/17 at 09:00 Vitamin D (Vitamin D3) 5,000 unit WEEKLY PO Last administered on 08/24/17 08: 17; Start 08/17/17 at 09:00 Lubiprostone (Amitiza) 24 mcg BIDWMEALS PO Last administered on 08/25/17 08: 37; Start 08/16/17 at 17:00 Lurasidone HCl (Latuda) 120 mg DAILYWSUP PO Last administered on 08/24/17 17: 01; Start 08/16/17 at 17:00 Non-Formulary Medication 1 each HS PO ; Start 08/16/17 at 21:00; Status UNV Acetaminophen (Tylenol) 650 mg PRN Q6HRS PRN PO FEVER; Start 08/16/17 at 16:30 Ondansetron HCl (Zofran) 4 mg PRN Q6HRS PRN IV NAUSEA/VOMITING Last administered on 08/25/17 13:48; Start 08/16/17 at 16:30 Morphine Sulfate 2 mg PRN Q2HR PRN IV PAIN; Start 08/16/17 at 16:30; Stop 08/18 at 11:12; Status DC Tramadol HCl (Ultram) 50 mg PRN Q6HRS PRN PO MODERATE PAIN; Start 08/16/17 at 16:30 Hydralazine HCl (Apresoline Inj) 10 mg PRN Q4HRS PRN IVP ELEVATED BP, SEE COMMENTS; Start 08/16/17 at 16:30; Stop 08/20/17 at 12:34; Status DC Docusate Sodium (Colace) 100 mg PRN DAILY PRN PO CONSTIPATION (2ND CHOICE); Start 08/16/17 at 16:30 Albuterol/ Ipratropium (Duoneb) 3 ml RTQID NEB Last administered on 08/25/17 11:48; Start 08/16/17 at 17:00 Albuterol Sulfate (Ventolin Neb Soln) 2.5 mg PRN Q2HR PRN NEB SHORTNESS OF BREATH; Start 08/16/17 at 16:30 Guaifenesin (Mucinex) 600 mg BID PO Last administered on 08/25/17 08:35; Start 08/16/17 at 21:00 Enoxaparin Sodium (Lovenox 40mg Syringe) 40 mg Q24H SQ Last administered on 17:01; Start 08/16/17 at 17:00 Famotidine (Pepcid Vial) 20 mg QHS IVP Last administered on 08/23/17 20:31; Start 08/16/17 at 21:00; Stop 08/24/17 at 12:34; Status DC Sodium Bicarbonate 50 meq 1X ONCE IV Last administered on 08/16/17 17:42; Start 08/16/17 at 17:30; Stop 08/16/17 at 17:38; Status DC Norepinephrine Bitartrate 250 ml @ As Directed STK-MED ONCE IV ; Start at 23:03; Stop 08/16/17 at 23:04; Status DC Norepinephrine Bitartrate 250 ml @ 0 mls/hr CONT PRN IV SEE I/O RECORD Last administered on 08/17/17 02:05; Start 08/17/17 at 01:15; Stop 08/19/17 at 08:21 ; Status DC Amlodipine Besylate (Norvasc) 10 mg DAILY PO Last administered on 08/19/17 08: 33; Start 08/17/17 at 12:00; Stop 08/20/17 at 12:34; Status DC Clonazepam (KlonoPIN) 1 mg BID PO Last administered on 08/25/17 08:35; Start 08/17/17 at 12:00 Hydrochlorothiazide (Hydrodiuril) 25 mg DAILY PO Last administered on 08:31; Start 08/17/17 at 12:00; Stop 08/20/17 at 12:34; Status DC Acetaminophen/ Hydrocodone Bitart (Lortab 5/325) 1 tab PRN Q6HRS PRN PO SEVERE PAIN; Start 08/17/17 at 11:30 Potassium Chloride (Klor-Con) 20 meq DAILYWBKFT PO Last administered on 08:35; Start 08/17/17 at 12:00 Sennosides (Senna) 8.6 mg DAILY PO Last administered on 08/25/17 08:34; Start 08/17/17 at 12:00 Temazepam (Restoril) 30 mg QHS PO Last administered on 08/24/17 20:17; Start 08/17/17 at 21:00 Tizanidine HCl (Zanaflex) 4 mg PRN Q8HRS PRN PO MUSCLE SPASMS; Start 08/17/17 at 11:30 Non-Formulary Medication 70 mg WEEKLY PO ; Start 08/24/17 at 09:00; Status UNV Calcium Carbonate/ Glycine (Oscal) 500 mg DAILY PO Last administered on 08:34; Start 08/17/17 at 12:00 Gabapentin (Neurontin) 300 mg TID PO Last administered on 08/25/17 13:29; Start 08/17/17 at 14:00 Ibuprofen (Motrin) 600 mg PRN Q6HRS PRN PO MILD PAIN Last administered on 18:45; Start 08/17/17 at 11:45 Losartan Potassium (Cozaar) 50 mg DAILY PO Last administered on 08/19/17 08:33 ; Start 08/17/17 at 12:00; Stop 08/20/17 at 12:34; Status DC Non-Formulary Medication 375 mg BID PRN PO PAIN; Start 08/17/17 at 11:30; Status UNV Sumatriptan Succinate (Imitrex) 100 mg PRN Q2HR PRN PO MIGRAINE HEADACHE; Start 08/17/17 at 11:45 Polyethylene Glycol (miraLAX PACKET) 17 gm PRN DAILY PRN PO CONSTIPATION (1ST CHOICE) Last administered on 08/22/17 09:50; Start 08/17/17 at 20:30 Vancomycin HCl 1 gm/Dextrose 250 ml @ 250 mls/hr Q12H IV Last administered on 08/18/17 17:11; Start 08/18/17 at 04:00; Stop 08/19/17 at 05:12; Status DC Vancomycin HCl 1 each 1X ONCE MC Last administered on 08/19/17 03:30; Start 08/19/17 at 03:30; Stop 08/19/17 at 03:31; Status DC Morphine Sulfate 2 mg PRN Q2HR PRN IV PAIN; Start 08/18/17 at 11:15 Vancomycin HCl 1.5 gm/Dextrose 500 ml @ 250 mls/hr Q12H IV ; Start 08/19/17 at 05:30; Stop 08/19/17 at 05:56; Status DC Vancomycin HCl 1 gm/Dextrose 250 ml @ 250 mls/hr Q12H IV Last administered on 08/21/17 05:18; Start 08/19/17 at 06:00; Stop 08/21/17 at 15:58; Status DC Levofloxacin (Levaquin) 250 mg DAILY06 PO Last administered on 08/25/17 06:05 ; Start 08/22/17 at 14:30 Lactobacillus Rhamnosus (Culturelle) 1 cap BID PO Last administered on 08:34; Start 08/22/17 at 21:00 Famotidine (Pepcid) 20 mg QHS PO Last administered on 08/24/17 20:17; Start 08/24/17 at 21:00 Active Scripts Active Levaquin (Levofloxacin) 500 Mg Tablet 1 Tab PO DAILY Naproxen 375 Mg Tablet 375 Mg PO BID PRN Reported Calcium (Calcium Carbonate) 600 Mg Tablet 600 Mg PO DAILY Temazepam 30 Mg Capsule 1 Cap PO QHS Senna (Sennosides) 8.6 Mg Tablet 8.6 Mg PO Gabapentin 300 Mg Capsule 300 Mg PO TID Tizanidine Hcl 4 Mg Tablet 4 Mg PO PRN Q8HRS PRN Amitiza (Lubiprostone) 24 Mcg Capsule 24 Mcg PO BID Stool Softener (Docusate Sodium) 100 Mg Capsule 100 Mg PO DAILY Melatonin 5 Mg Tablet (Melatonin/Pyridoxine Hcl (B6)) 1 Each Tablet 1 Each PO HS Latuda (Lurasidone Hcl) 120 Mg Tablet 120 Mg PO DAILYWSUP Bupropion Xl (Bupropion Hcl) 300 Mg Tab.er.24h 300 Mg PO DAILY Alendronate Sodium 70 Mg Tablet 70 Mg PO WEEKLY Ibuprofen 600 Mg Tablet 600 Mg PO Q6H PRN Hydrocodone-Apap 5-325 (Hydrocodone Bit/Acetaminophen) 1 Each Tablet 1 Tab PO PRN Q6HRS PRN Vitamin D-3 (Cholecalciferol (Vitamin D3)) 2,000 Unit Tablet 5,000 Unit PO WEEKLY Losartan Potassium 100 Mg Tablet 50 Mg PO DAILY Amlodipine Besylate 10 Mg Tablet 10 Mg PO DAILY Atorvastatin Calcium 40 Mg Tablet 40 Mg PO DAILY Hydrochlorothiazide Capsule (Hydrochlorothiazide) 12.5 Mg Capsule 25 Mg PO DAILY Potassium Chloride 20 Meq Tab.er.prt 20 Meq PO DAILY Maxalt (Rizatriptan Benzoate) 10 Mg Tablet 10 Mg PO PRN PRN Clonazepam 1 Mg Tablet 1 Mg PO BID Vitals/I & O Vital Sign - Last 24 Hours 08/24/17 08/24/17 08/24/17 08/24/17 19:00 20:00 20:07 23:00 Temp 98.6 97.9 98.6 97.9 Pulse 89 83 Resp 16 16 B/P (MAP) 100/66 (77) 104/64 (77) Pulse Ox 96 94 96 O2 Delivery Nasal Cannula Nasal Cannula Nasal Cannula Nasal Cannula O2 Flow Rate 2.0 2.0 2.0 2.0 08/25/17 08/25/17 08/25/17 08/25/17 03:00 07:00 07:53 08:00 Temp 97.7 97.9 97.7 97.9 Pulse 75 76 Resp 17 18 B/P (MAP) 106/62 (77) 113/65 (81) Pulse Ox 95 96 97 O2 Delivery Nasal Cannula Nasal Cannula Nasal Cannula Nasal Cannula O2 Flow Rate 2.0 2.0 2.0 2.0 08/25/17 08/25/17 11:00 11:48 Temp 97.7 97.7 Pulse 79 Resp 19 B/P (MAP) 103/59 (74) Pulse Ox 97 100 O2 Delivery Nasal Cannula Nasal Cannula O2 Flow Rate 2.0 2.0 Intake and Output 08/24/17 08/24/17 08/25/17 15:00 23:00 07:00 Intake Total 590 ml 240 ml 900 ml Balance 590 ml 240 ml 900 ml Nutrition Consultation Dietary Evaluation: Recommendations by RD: Increase Calorie Intake Comments: continue cardiac diet w/textures per [employer] (dysphagia III w/thin liquids) pt declines boost/ ensure supplements at this time Expected Outcomes/Goals: PO intake to meet > 75% est needs- met when po intake > 60% meals- met at times, goal ongoing Interpretation of weight loss: >10% in 6 months Malnutrition Findings: Food and Nutrition Intake (Mod: <75% est energy req 7days Weight Status: Appropriate MAYE YEUNG MD Aug 25, 2017 15:32
[2017-08-25] MEDS: ENOXAPARIN 40 MG/0.4 ML SYRINGE. SQ SCH (17:27)
[2017-08-25] MEDS: LURASIDONE 40 MG TABLET. PO SCH (17:30)
[2017-08-25 19:00] VITALS: BP_SYST 124; BP_SYST 143; BP_DIAS 67; BP_DIAS 80
[2017-08-25] MEDS: IBUPROFEN 600 MG TABLET. PO PRN (19:02)
[2017-08-25] MEDS: ATORVASTATIN CALCIUM 40 MG TABLET. PO SCH (21:20)
[2017-08-25] MEDS: TEMAZEPAM 15 MG CAPSULE PO SCH (21:20)
[2017-08-25] MEDS: FAMOTIDINE 20 MG TABLET. PO SCH (21:20)
[2017-08-25 22:55] VITALS: BP 114/65
[2017-08-26 03:00] VITALS: BP 109/64
[2017-08-26 07:00] VITALS: BP 110/59
[2017-08-26] MEDS: IPRATRPIUM/ALBUTEROL 0.5/2.5MG 3 ML NEBU. NEB SCH ×2 (08:02→11:18)
[2017-08-26] MEDS: SENNOSIDES 8.6 MG TABLET PO SCH (08:29)
[2017-08-26] MEDS: GABAPENTIN 300 MG CAPSULE. PO SCH (08:29)
[2017-08-26] MEDS: POTASSIUM CHLORIDE 20 MEQ TABLET.ER. PO SCH (08:29)
[2017-08-26] MEDS: LACTOBACILLUS RHAMNOSUS GG 1 CAPSULE. PO SCH (08:29)
[2017-08-26] MEDS: LUBIPROSTONE 8 MCG CAPSULE PO SCH (08:30)
[2017-08-26] MEDS: CALCIUM CARBONATE 500 MG TABLET PO SCH (08:30)
[2017-08-26] MEDS: buPROPion XL 150 MG TAB.ER.24H. PO SCH (08:30)
[2017-08-26] MEDS: clonazePAM 1 MG TABLET PO SCH (08:30)
[2017-08-26 11:00] VITALS: BP 100/59
--- NOTE | 2017-08-26 11:56 | PDOC ---
PULMONARY PROGRESS NOTES Subjective PT WEAK NO INCREASE SOA Vitals Vital Signs Date Time Temp Pulse Resp B/P (MAP) Pulse Ox O2 Delivery O2 Flow Rate FiO2 08/26/17 11:00 98.0 66 20 100/59 (73) 97 Room Air 98.0 08/26/17 07:30 2.0 General: Alert, No acute distress Lungs: Clear Cardiovascular: S1, S2 Abdomen: Soft, Non-tender Neuro Exam: Alert Extremities: No Edema Skin: Warm Labs Laboratory Tests Test 08/25/17 03:28 White Blood Count 5.2 x10^3/uL (4.0-11.0) Red Blood Count 3.94 x10^6/uL (3.50-5.40) Hemoglobin 11.4 g/dL (12.0-15.5) Hematocrit 34.9 % (36.0-47.0) Mean Corpuscular Volume 89 fL (79-100) Mean Corpuscular Hemoglobin 29 pg (25-35) Mean Corpuscular Hemoglobin Concent 33 g/dL (31-37) Red Cell Distribution Width 15.4 % (11.5-14.5) Platelet Count 149 x10^3/uL (140-400) Neutrophils (%) (Auto) 52 % (31-73) Lymphocytes (%) (Auto) 37 % (24-48) Monocytes (%) (Auto) 9 % (0-9) Eosinophils (%) (Auto) 2 % (0-3) Basophils (%) (Auto) 1 % (0-3) Neutrophils # (Auto) 2.7 x10^3uL (1.8-7.7) Lymphocytes # (Auto) 1.9 x10^3/uL (1.0-4.8) Monocytes # (Auto) 0.5 x10^3/uL (0.0-1.1) Eosinophils # (Auto) 0.1 x10^3/uL (0.0-0.7) Basophils # (Auto) 0.0 x10^3/uL (0.0-0.2) Sodium Level 141 mmol/L (136-145) Potassium Level 3.9 mmol/L (3.5-5.1) Chloride Level 100 mmol/L (98-107) Carbon Dioxide Level 48 mmol/L (21-32) Anion Gap -7 (6-14) Blood Urea Nitrogen 13 mg/dL (7-20) Creatinine 0.5 mg/dL (0.6-1.0) Estimated GFR (Cockcroft-Gault) 123.4 Glucose Level 92 mg/dL (70-99) Calcium Level 8.9 mg/dL (8.5-10.1) Medications Active Scripts Medications Dose Route/Sig Max Daily Dose Days Date Category Calcium (Calcium Carbonate) 600 Mg Tablet 600 Mg PO DAILY 08/16/17 Reported Temazepam 30 Mg Capsule 1 Cap PO QHS 08/16/17 Reported Senna (Sennosides) 8.6 Mg Tablet 8.6 Mg PO 08/16/17 Reported Gabapentin 300 Mg Capsule 300 Mg PO TID 08/16/17 Reported Tizanidine Hcl 4 Mg Tablet 4 Mg PO PRN Q8HRS PRN 02/15/17 Reported Amitiza (Lubiprostone) 24 Mcg Capsule 24 Mcg PO BID 02/15/17 Reported Morphine Sulfate 15 Mg Tablet 1 Tab PO PRN Q6-8HRS PRN 02/13/17 Rx Naproxen 375 Mg Tablet 375 Mg PO BID PRN 12/13/16 Rx Stool Softener (Docusate Sodium) 100 Mg Capsule 100 Mg PO DAILY 09/19/15 Reported Melatonin 5 Mg Tablet (Melatonin/Pyridoxine Hcl (B6)) 1 Each Tablet 1 Each PO HS 09/19/15 Reported Latuda (Lurasidone Hcl) 120 Mg Tablet 120 Mg PO DAILYWSUP 09/19/15 Reported Bupropion Xl (Bupropion Hcl) 300 Mg Tab.er.24h 300 Mg PO DAILY 09/19/15 Reported Alendronate Sodium 70 Mg Tablet 70 Mg PO WEEKLY 09/19/15 Reported Ibuprofen 600 Mg Tablet 600 Mg PO Q6H PRN 09/19/15 Reported Hydrocodone-Apap 5-325 (Hydrocodone Bit/Acetaminophen) 1 Each Tablet 1 Tab PO PRN Q6HRS PRN 09/19/15 Reported Vitamin D-3 (Cholecalciferol (Vitamin D3)) 2,000 Unit Tablet 5,000 Unit PO WEEKLY 09/19/15 Reported Losartan Potassium 100 Mg Tablet 50 Mg PO DAILY 09/19/15 Reported Amlodipine Besylate 10 Mg Tablet 10 Mg PO DAILY 09/19/15 Reported Atorvastatin Calcium 40 Mg Tablet 40 Mg PO DAILY 09/19/15 Reported Hydrochlorothiazide Capsule (Hydrochlorothiazide) 12.5 Mg Capsule 25 Mg PO DAILY 09/19/15 Reported Potassium Chloride 20 Meq Tab.er.prt 20 Meq PO DAILY 09/19/15 Reported Maxalt (Rizatriptan Benzoate) 10 Mg Tablet 10 Mg PO PRN PRN 09/19/15 Reported Clonazepam 1 Mg Tablet 1 Mg PO BID 11/25/13 Reported Impression . 1. Acute hypoxemic-hypercapnic respiratory failure. 2. Metabolic encephalopathy, acute, present upon admission. improved 3. Possible pneumonia, gram-negative, gram-positive. 4. Hyponatremia. 5. Chronic pain syndrome. 6. Hypotension, possible sepsis. 7. Bipolar disorder. 8. Schizophrenia. 9. Abnormal CXR with elevated Tono-diaphragm/ associated atelectasis Plan . WOULD BENEFIT FROM DC TO SKILL CARE/ UNFORTUNATELY NO SKILL DAYS LEFT DYSPHAGIA DIET REHAB RESP STATUS IS COMPENSATED ORAL LEVAQUIN OXYGEN TERRI BARGER MD Aug 26, 2017 11:56
--- NOTE | 2017-08-26 13:31 | PDOC3 ---
Discharge Summary [facility] Date of Admission: Aug 16, 2017 Discharge Date: Aug 26, 2017 Admitting Diagnosis AMS, metabolic encephalopathy, MULTIFACTORIAL, RESOLVED acute hypoxic and hypercapnic resp failure, RESOLVED haP hyponatremia, 2/2 low po intake? REOSLVED sepsis RESOLVED chronic back pain HTN , NOW hypotension - labile hld schizophrenia BIPolar Gen weakness Problems: Final Diagnosis CONSULTS pulm card Brief Hospital Course 66 yo F, with h/o HTN, HYPOthyroidism, chronic back pain, neck pain, was sent by EMS for AMS. pt is seen in ICU, with bipap, drowsy, arousable, follow commands, but hard to get a good history. as per ERP and ICU nurse, pt lives alone, felt not good , called EMS. pt admitted sob, but denies cough. in ER, pt was found desat to 70% on RA, ABG showed hypercapnic resp failure, was put on BIpap. BP was also low, improved with IVF. pt was dced last week for back pain to SNF. flu neg abd CT SHOWED CONStipation and bl lung possible PNA. pt improved with supportive care, levaquin, bipap. She cont very weak, barely can move. She has very poor home environment, no family or freinds, some rehabilitation caseworker once a week, care manager cna 4 times a week, 3 hs per time. She also ran out of rehab or SNF days. i pushed SW very hard, eventually get [facility] SNF today to accept her. She may need residential SNF. dc ivf, dc high dose morphine. dc time 35min General: Alert, Oriented X3, Cooperative, No acute distress Heart: Regular rate (SR), Normal S1, Normal S2, Other (2/6 systolic murmur to LLS border) Lungs: Clear Abdomen: Normal bowel sounds, Soft, No tenderness Extremities: No cyanosis, Other (1+ bilateral LE pitting edema) Skin: No breakdown, No significant lesion Patient History: Family history: Cardiomyopathy (situation) 33 FATHER (cabg, high cholesterol) 32 MOTHER (cabg, high chol) Family history: Depression (situation) G8 DAUGHTER G8 DAUGHTER 32 MOTHER Family history: Hypertension (situation) G8 BROTHER 33 FATHER () 32 MOTHER Family history: neoplasm - urinary organ (situation) G8 SISTER (colon cancer) Unknown G8 SON (none) G8 SON (none) Problems: Disposition SNF CONDITION AT DISCHARGE: Improved, Stable Diet regular Scheduled Alendronate Sodium (Alendronate Sodium), 70 MG PO WEEKLY, (Reported) Amlodipine Besylate (Amlodipine Besylate), 10 MG PO DAILY, (Reported) Atorvastatin Calcium (Atorvastatin Calcium), 40 MG PO DAILY, (Reported) Bupropion Hcl (Bupropion Xl), 300 MG PO DAILY, (Reported) Calcium Carbonate (Calcium), 600 MG PO DAILY, (Reported) Cholecalciferol (Vitamin D3) (Vitamin D-3), 5,000 UNIT PO WEEKLY, (Reported) Clonazepam (Clonazepam), 1 MG PO BID, (Reported) Docusate Sodium (Stool Softener), 100 MG PO DAILY, (Reported) Gabapentin (Gabapentin), 300 MG PO TID, (Reported) Hydrochlorothiazide (Hydrochlorothiazide Capsule ), 25 MG PO DAILY, (Reported ) Losartan Potassium (Losartan Potassium), 50 MG PO DAILY, (Reported) Lubiprostone (Amitiza), 24 MCG PO BID, (Reported) Lurasidone Hcl (Latuda), 120 MG PO DAILYWSUP, (Reported) Melatonin/Pyridoxine Hcl (B6) (Melatonin 5 Mg Tablet), 1 EACH PO HS, (Reported) Potassium Chloride (Potassium Chloride), 20 MEQ PO DAILY, (Reported) Temazepam (Temazepam), 1 CAP PO QHS, (Reported) Scheduled PRN Hydrocodone Bit/Acetaminophen (Hydrocodone-Apap 5-325 ), 1 TAB PO PRN Q6HRS PRN for PAIN, (Reported) Naproxen (Naproxen), 375 MG PO BID PRN for PAIN Rizatriptan Benzoate (Maxalt), 10 MG PO PRN PRN for MIGRAINE HEADACHE, (Reported ) Tizanidine Hcl (Tizanidine Hcl), 4 MG PO PRN Q8HRS PRN for MUSCLE SPASMS, ( Reported) Miscellaneous Medications Sennosides (Senna), 8.6 MG PO, (Reported) Discontinued Medications Morphine Sulfate (Morphine Sulfate), 1 TAB PO PRN Q6-8HRS PRN for SEVERE PAIN Follow Up pcp in 2 weeks MAYE YEUNG MD Aug 26, 2017 13:31
== END 2017-08-26 23:41 | DRG 871 ==
LOC: ER 11:35 → 1 WEST ICU 14:45 → 5 NORTH 08-18 14:04
PROVIDERS: ADMIT Internal Medicine; ATTEND Internal Medicine
PROC: 5A09357 Assistance with Respiratory Ventilation, Less than 24 Consecutive Hours, Continuous Positive Airway Pressure (ICD-10-PCS; principal; 2017-08-17)
DX: A41.9 Sepsis, unspecified organism (principal); J15.6 Pneumonia due to other Gram-negative bacteria; J96.01 Acute respiratory failure with hypoxia; G93.41 Metabolic encephalopathy; J96.02 Acute respiratory failure with hypercapnia; J18.9 Pneumonia, unspecified organism; E87.1 Hypo-osmolality and hyponatremia; E03.9 Hypothyroidism, unspecified; E78.5 Hyperlipidemia, unspecified; F20.9 Schizophrenia, unspecified; F31.9 Bipolar disorder, unspecified; G89.4 Chronic pain syndrome; I10 Essential (primary) hypertension; K59.00 Constipation, unspecified; K82.8 Other specified diseases of gallbladder; M81.0 Age-related osteoporosis without current pathological fracture; F41.9 Anxiety disorder, unspecified; G43.909 Migraine, unspecified, not intractable, without status migrainosus; M19.90 Unspecified osteoarthritis, unspecified site; Y95 Nosocomial condition; M54.5 Low back pain; Z79.1 Long term (current) use of non-steroidal anti-inflammatories (NSAID); Z79.891 Long term (current) use of opiate analgesic; Z80.0 Family history of malignant neoplasm of digestive organs; Z81.8 Family history of other mental and behavioral disorders; Z82.49 Family history of ischemic heart disease and other diseases of the circulatory system; Z87.310 Personal history of (healed) osteoporosis fracture; Z90.710 Acquired absence of both cervix and uterus; Z87.81 Personal history of (healed) traumatic fracture; Z90.49 Acquired absence of other specified parts of digestive tract
CPT/HCPCS: 36415; 36600; 51702; 70450; 71010; 74177; 80048; 80053; 80061; 80202; 80307; 81001; 82805; 83605; 83690; 84484; 85025; 85610; 85730; 87040; 87449; 87641; 87804; 93005; 93308; 93320; 93325; 94250; 94620; 94640; 94660; 94760; 96365; 96375; J0692; J1650; J2405; J3370; J7030; J7620; S0028; 92526; 92610; 97110; 97116; 97530; 97535; 99285-25; G0479